=== PATIENT | male | born 1955 | race Caucasian/White ===

== ENCOUNTER 2018-02-27 10:12 | Day surgery (SDC) | payer MEDICARE, SELFPAY ==
--- NOTE | 2018-02-26 22:23 | PCM.HP.BLA ---
History and Physical Date of Admission: 02/27/18 HISTORY OF PRESENT ILLNESS 62 year old man presents for evaluation for TBSE. He is concerned about a lesion on his superior helical rim with extension to middle helical rim left ear that has increased in size over the last several months. It has developed irregular borders. He denies any fever. There has been some bleeding. He denies any trauma. He presents at this time for further evaluation and treatment. PAST MEDICAL HISTORY Arthritis. Asthma. Colon cancer. Chronic bronchitis. COPD. CAD with ID. CHF. Hypertension. High cholesterol. Hyperlipidemia. Pneumonia. Diverticulitis. Hernia. Ruptured appendix. PAST SURGICAL HISTORY Laparoscopic colon resection. Colonoscopy with polypectomy. Cardiac stents. MEDICATIONS Aspirin. Combivent. Nitroglycerin. Fluticasone. Lisinopril. Lovastatin. Metoprolol. Plavix. ALLERGIES None. SOCIAL HISTORY Patient is a former smoker. Patient does not drink alcohol. FAMILY HISTORY Negative for skin cancer. Mother - CAD with [place] and CHF. Father - CAD with ID. Brother - CAD with ID. REVIEW OF SYSTEMS General - Denies fever and weight loss. Has fatigue. ENT - Denies nasal congestion and sore throat. Eyes - Denies eye pain. Denies cataracts and glaucoma. Endocrine - Denies excessive thirst and urination. Skin - Has enlarging lesion superior helical rim with extension to middle helical rim left ear. Musculoskeletal - Has joint pain, joint stiffness, weakness of muscles and joints, and arthritis. Denies back pain. Neuro - Denies headaches. Cardiovascular - Denies chest pain. Has fatigue. Denies shortness of breath of exercise. Psych - Denies anxiety and depression. Respiratory - Has shortness of breath, asthma, and cough. Patient is a former smoker. Gastrointestinal - Denies nausea, vomiting, diarrhea, and constipation. Hematologic - Denies abnormal bruising and bleeding. Genitourinary - Denies hematuria and urinary frequency. PHYSICAL EXAMINATION General - Awake and alert. HEENT - PERRL. EOMI. Throat is clear. On the left ear over the superior helical rim with extension to middle helical rim is a nodular lesion with some ulceration. Has irregular borders. It is raised in configuration. It is nontender. It measures 1.2 cm. Neck - Supple and nontender. No cervical adenopathy. No suspicious lesions noted. Chest wall - No suspicious lesions noted. Lungs - Clear to auscultation. Heart - Regular rate and rhythm. Abdomen - Soft and nondistended. No suspicious lesions noted. Extremities - FROM. No suspicious lesions noted. Radial pulses are palpable. No axillary adenopathy. Neuro - CN II - XII grossly intact. ASSESSMENT 1. 1.2 cm ulcerated lesion superior helical rim with extension to middle helical rim left ear. 2. Former smoker. PLAN Recommend excision of this lesion left ear. Will send to Pathology for analysis to rule out carcinoma. If carcinoma is present, then further excision will be done with a skin flap or skin graft reconstruction. Depending on the size of the defect, a two stage post-auricular skin flap with cartilage grafting for support would be necessary. The second stage which is division and inset of the post-auricular skin flap. The donor site on the post-auricular area may need to be skin grafted or have a skin flap placed. The second stage surgery would occur in 3 weeks. Surgery would be done under general anesthesia and a surgical observation overnight stay in the hospital. Patient was informed of the risks and complications of the procedure including alternatives to surgery. These were discussed with him personally. He voices understanding and wishes to proceed. Some of the risks and complications were included in a form from the [employer].
--- NOTE | 2018-02-27 | LES_PTH ---
PATIENT: GABRIEL BENJAMIN LOC: [facility] U#:[id number] AGE/SX: 62/M ROOM: RE02/27/[address]: Dr. Rolo Cantu MD : 1955 BED: DIS: 02/27/2018 SPEC #: [id number] RECD: 02/27/18 13:16 STATUS: JAKE REINALDO #: [id number] BRIANDA: 02/27/18 00:[address]: Rolo Cantu DEPT: SURGICAL PATHOLOGY RECD BY: Itzel Cabrera ENTERED: 02/27/18 14:10 SP TYPE: Lesion OTHR DR: Dr. Celio Shaikh MD Tissues: A - Skin of external ear, NOS B - Skin of external ear, NOS Procedures: Frozen Section (charge) Surgery Specimen Level IV Frozen (no charge) HEADER OPERATION: Excision lesion left ear, superior helical rim/middle helical PRE-OP DIAGNOSIS: Ulcerated lesion superior helical rim with extension to middle helical rim left ear TISSUE SUBMITTED: A ? Ulcerated lesion superior helical rim with extension to middle helical rim left ear sent for FS, left OR at 1312, B ? Squamous cell carcinoma superior helical rim with extension to middle helical rim left ear, suture at 12 o?clock FROZEN SECTION DIAGNOSIS A. Skin lesion of left ear, biopsy: Squamous cell carcinoma with area suspicious for microinvasive carcinoma. Arising in association with verrucoid keratosis. AM:gia 02/27/18 Case has been reviewed in consultation with Dr. Mariscal who concurs with the above diagnosis. IDC:ISI MICROSCOPIC DIAGNOSIS A. Skin lesion of left ear, biopsy: Invasive well differentiated squamous cell carcinoma. See comment. B. Squamous cell carcinoma superior helical rim, excisional biopsy: Focal ulceration consistent with site of specimen A. Actinic keratosis and solar elastosis. Negative for carcinoma. See comment. ISI:gia 03/02/18 COMMENT A. The tumor shows focal area of ulceration and extensive verrucous feature. B. The specimen also shows cartilage in the deep portion of the specimen. MICROSCOPIC DESCRIPTION Slides are reviewed. GROSS DESCRIPTION A - Received fresh for frozen section consultation labeled with the patient's name is a specimen designated skin lesion of left ear. The specimen consists of a cone-shaped fragment of indurated skin and soft tissue measuring 2 x 1.6 x 1.4 cm. The cone portion is inked. The specimen is trisected and a order entry representative mid portion section is submitted for frozen section consultation. The remainder of the specimen is submitted for permanent section in cassette #2. / AM: 02/27/18 B - Received in fixative is one container labeled with the patient's name and designated squamous cell carcinoma superior helical rim. The specimen consists of two fragments. One fragment consists of a light beasley-red soft tissue measuring 2 x 0.5 x 0.2 cm. This fragment is submitted in its entirety in cassette #1. The second fragment consists of a fragment of excised skin measuring 3 x 2 x 0.5 cm and contains portion of cartilage and a centrally located ulcer measuring 1.9 x 1 x 0.1 cm. The specimen is differentially inked as follows: 12 o?clock ? black, 6 o?clock ? blue, skin at 3 o?clock ? green and 9 o?clock ? red. The fragments are serially sectioned in a 3 through 9 o?clock orientation and totally submitted in cassettes 2 & 3. / AM: 02/27/18 TC:0 CPT: 58650 x2, 71426
[2018-02-27 10:52] VITALS: BP 143/91; PULSE 98; RESP 16; TEMP 36.4; O2SAT 93; BMI 37.9
[2018-02-27] MEDS: Clindamycin 900 MG/50 ML BAG 75 MG IV (12:45)
--- NOTE | 2018-02-27 13:53 | OP.PN_ITS ---
Immediate Post-Op Note Date of Procedure: 02/27/18 Primary Surgeon/Physician: Rolo Cantu certified nuclear medicine technologist: None Pre-Operative Diagnosis: 1. 1.2 cm ulcerated lesion superior helical rim with extension to middle helical rim left ear. 2. Former smoker. Post-Operative Diagnosis: 1. 1.2 cm ulcerated squamous cell carcinoma superior helical rim with extension to middle helical rim left ear. 2. Former smoker. Surgery/Procedure Performed:: Radical excision 1.2 cm ulcerated squamous cell carcinoma including underlying cartilage superior helical rim with extension to middle helical rim left ear. Description of Surgical Findings:: 62 year old man presents for evaluation for TBSE. He is concerned about a lesion on his superior helical rim with extension to middle helical rim left ear that has increased in size over the last several months. It has developed irregular borders. He denies any fever. There has been some bleeding. He denies any trauma. He had the ulcerated lesion left ear excised and sent to Pathology as a frozen section. Frozen section showed a squamous cell carcinoma. Today the patient underwent radical excision 1.2 cm ulcerated squamous cell carcinoma including underlying cartilage superior helical rim with extension to middle helical rim left ear. Frozen section superior helical rim with extension to middle helical rim left ear - squamous cell carcinoma with verrucous features. Size of defect superior helical rim with extension to middle helical rim left ear - 2.5 x 1.5 x 0.6 cm. Estimated Blood Loss: 30 ml. Specimen's removed: 1. Ulcerated lesion superior helical rim with extension to middle helical rim left ear to Pathology as a frozen section. 2. Squamous cell carcinoma superior helical rim with extension to middle helical rim left ear to Pathology. Drains: None. Type of Anesthesia:: Local MAC - xylocaine with epinephrine auricular block and IV sedation. - Admit VTE Documentation VTE Present on Admission: No VTE Mechan Device Prophylaxis: SCD's VTE Pharm Prophylaxis ordered?: No
[2018-02-27 13:55] VITALS: BP 111/77; BP 143/91; PULSE 99; RESP 16; TEMP 36.2; O2SAT 92
--- NOTE | 2018-02-27 13:59 | PCM.DC ---
You will use the following diet at home:: No restrictions Discharge Activity: May not drive while taking narcotic pain medications., - - keep head elevated. no heavy lifting. May shower in (days): 1 - shower from the neck down only. May resume sexual activity in: No Restrictions Ice area for (Minutes): 5 - as needed for swelling. Weight Bearing Status: Weight bearing as tolerated Lifting Restrictions: 10 lbs. Keep extremity elevated above heart level: - - elevate head. Call your doctor if your incision/area has: Continuous Slow Oozing, Sudden Increased Bleeding, Increased Pain/ Swelling, Increased Redness, Foul Smelling Discharge, Swelling at the incision site Call your doctor if you observe: Fever of 101 or Higher, Coldness, Increased Pain, Shortness of breath, Chest pain, Calf discomfort, Uncontrolled pain Suture Line Care: - - daily silver dressing changes after the operative dressing is removed in the office. Change Dressing in (Days):: 3 - will change dressing in the office. Cleanse incision/area with: - - may get wound wet in the shower after the dressing is removed in the office. Allergies/Adverse Reactions: Allergies No Known Allergies Allergy (Verified 02/24/18 15:18) Medications to take at Discharge Clopidogrel Bisulfate [Clopidogrel] 75 mg PO DAILY 06/25/16 Fluticasone/Vilanterol [Breo Ellipta 100-25 Mcg INH] 1 ea IH DAILY 06/25/16 Ipratropium/Albuterol Respimat [Combivent Respimat Inhal [place]] 1 puff INHALATION 4X/DAY 06/25/16 Lisinopril 5 mg PO QHS 06/25/16 Nitroglycerin [Nitrostat] 0.4 mg SUBLINGUAL Q5M PRN 06/25/16 Lovastatin [Mevacor] 40 mg PO QHS 03/20/17 Metoprolol(XL)Succ [Toprol Xl (Beta Hoang)] 50 mg PO QHS 03/20/17 Oxygen, Home [Home Oxygen] 2 - 4 lpm NASAL CONT #1 unit 03/22/17 L. Acidophilus/Pectin, [place] [Acidophilus-Pectin [place]] 1 ea PO BID #20 tab 02/27/18 Levofloxacin [Levaquin] 500 mg PO .QDAILY #10 tab 02/27/18 Oxycodone HCl/Acetaminophen [Percocet 5/325] 1 - 2 tab PO 4X/DAY PRN PRN 4 Days #30 tab 02/27/18 The following prescriptions were given: Levofloxacin [Levaquin] 500 mg PO .QDAILY #10 tab Oxycodone HCl/Acetaminophen [Percocet 5/325] 1 - 2 tab PO 4X/DAY PRN PRN 4 Days #30 tab PRN Reason: Pain L. Acidophilus/Pectin, [place] [Acidophilus-Pectin [place]] 1 ea PO BID #20 tab Primary Care Physician: Celio Shaikh MD [Primary Care Provider] - Please Follow Up With: Rolo Cantu MD When: friday03/02/18. call [phone] for appt. Proposed Discharge Date: 02/27/18
[2018-02-27 14:00] VITALS: BP 121/81; BP 143/91; PULSE 99; RESP 16; O2SAT 91
[2018-02-27 14:05] VITALS: BP 116/79; BP 143/91; PULSE 94; RESP 16; O2SAT 92
[2018-02-27 14:10] VITALS: BP 116/77; BP 143/91; PULSE 95; RESP 18; TEMP 36.1; O2SAT 93
[2018-02-27 14:48] VITALS: BP 143/91
--- NOTE | 2018-02-27 18:33 | PCM.OPRPT ---
Report of Operation Date of Procedure: 02/27/18 Pre-Operative Diagnosis: 1. 1.2 cm ulcerated lesion superior helical rim with extension to middle helical rim left ear. 2. Former smoker. Post-Operative Diagnosis: 1. 1.2 cm ulcerated squamous cell carcinoma superior helical rim with extension to middle helical rim left ear. 2. Former smoker. Surgery/Procedure Performed:: Radical excision 1.2 cm ulcerated squamous cell carcinoma including underlying cartilage superior helical rim with extension to middle helical rim left ear. Description of Surgical Findings:: 62 year old man presents for evaluation for TBSE. He is concerned about a lesion on his superior helical rim with extension to middle helical rim left ear that has increased in size over the last several months. It has developed irregular borders. He denies any fever. There has been some bleeding. He denies any trauma. Patient was informed of the risks and complications of the procedure including alternatives to surgery. These were discussed with him personally. He voices understanding and wishes to proceed. Some of the risks and complications were included in a form from the [place] [employer]. Frozen section superior helical rim with extension to middle helical rim left ear - squamous cell carcinoma with verrucous features. Size of defect superior helical rim with extension to middle helical rim left ear - 2.5 x 1.5 x 0.6 cm. associate data scientist: None Type of Anesthesia:: Local MAC - xylocaine with epinephrine auricular block and IV sedation. Specimen's removed: 1. Ulcerated lesion superior helical rim extending to middle helical rim left ear to Pathology as a frozen section. 2. Squamous cell carcinoma superior helical rim extending to middle helical rim left ear to Pathology. Drains: None. Estimated Blood Loss (mL): 30 ml. Description of Procedure: Patient was taken to OR in supine position and was given IV sedation. His left ear, cheek, scalp, and neck were prepped and draped in the usual fashion. SCD's were placed for DVT prophylaxis. Perioperative antibiotics were given intravenously. Using xylocaine with epinephrine, a regional auricular block was administered. After waiting 5 minutes for the anesthetic to take effect, an intradermal excision of this ulcerated lesion was done and sent to Pathology for analysis to rule out carcinoma. Frozen section showed a squamous cell carcinoma with verrucous features. Therefore further excision will be done. I marked out a margin of 6 mm. A full thickness radical excision was done including underlying cartilage. A suture was marked at the 12 oclock position for pathology orientation. The lesion was sent to Pathology for analysis to rule out carcinoma at the margins. Hemostasis was obtained with electrocautery. The size of the defect was 2.5 x 1.5 x 0.6 cm. Before proceeding with a complex reconstruction that may necessitate a two stage flap, I want to make sure there are negative margins. So the wound will be left open and dressed daily with a Silver dressing. I applied a Silver dressing today and secured it to the skin with 4-0 Nylon tie over stent suture dressing. Patient tolerated the procedure well and was sent to PACU in satisfactory condition. He will be sent home on antibiotics and pain medication. He will keep his head elevated during the initial postop period. He will followup in the office on Friday for a dressing change and to instruct the patient on the Silver dressing changes. When the pathology is available, will proceed with complex wound reconstruction that may necessitate a two stage flap and possible associated skin grafting. Grafts/Implants Used: None. - Complications None. - Admit VTE Documentation VTE Present on Admission: No VTE Mechan Device Prophylaxis: SCD's VTE Pharm Prophylaxis ordered?: No Code Visit Surgery Charges CPT - 42175 ICD-10 - C44.229, S01.302A, Z87.891
--- NOTE | 2018-02-28 19:54 | OP.PCM_ITS ---
Report of Operation Date of Procedure: 02/27/18 Pre-Operative Diagnosis: 1. 1.2 cm ulcerated lesion superior helical rim with extension to middle helical rim left ear. 2. Former smoker. Post-Operative Diagnosis: 1. 1.2 cm ulcerated squamous cell carcinoma superior helical rim with extension to middle helical rim left ear. 2. Former smoker. Surgery/Procedure Performed:: Radical excision 1.2 cm ulcerated squamous cell carcinoma including underlying cartilage superior helical rim with extension to middle helical rim left ear. Description of Surgical Findings:: 62 year old man presents for evaluation for TBSE. He is concerned about a lesion on his superior helical rim with extension to middle helical rim left ear that has increased in size over the last several months. It has developed irregular borders. He denies any fever. There has been some bleeding. He denies any trauma. Patient was informed of the risks and complications of the procedure including alternatives to surgery. These were discussed with him personally. He voices understanding and wishes to proceed. Some of the risks and complications were included in a form from the [employer]. Frozen section superior helical rim with extension to middle helical rim left ear - squamous cell carcinoma with verrucous features. Size of defect superior helical rim with extension to middle helical rim left ear - 2.5 x 1.5 x 0.6 cm. 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 Specimen's removed: 1. Ulcerated lesion superior helical rim extending to middle helical rim left ear to Pathology as a frozen section. 2. Squamous cell carcinoma superior helical rim extending to middle helical rim left ear to Pathology. Drains: None. Estimated Blood Loss (mL): 30 ml. Description of Procedure: Patient was taken to OR in supine position and was given IV sedation. His left ear, cheek, scalp, and neck were prepped and draped in the usual fashion. SCD' s were placed for DVT prophylaxis. Perioperative antibiotics were given intravenously. Using xylocaine with epinephrine, a regional auricular block was administered. After waiting 5 minutes for the anesthetic to take effect, an intradermal excision of this ulcerated lesion was done and sent to Pathology for analysis to rule out carcinoma. Frozen section showed a squamous cell carcinoma with verrucous features. Therefore further excision will be done. I marked out a margin of 6 mm. A full thickness radical excision was done including underlying cartilage. A suture was marked at the 12 oclock position for pathology orientation. The lesion was sent to Pathology for analysis to rule out carcinoma at the margins. Hemostasis was obtained with electrocautery. The size of the defect was 2.5 x 1.5 x 0.6 cm. Before proceeding with a complex reconstruction that may necessitate a two stage flap, I want to make sure there are negative margins. So the wound will be left open and dressed daily with a Silver dressing. I applied a Silver dressing today and secured it to the skin with 4-0 Nylon tie over stent suture dressing. Patient tolerated the procedure well and was sent to PACU in satisfactory condition. He will be sent home on antibiotics and pain medication. He will keep his head elevated during the initial postop period. He will followup in the office on Friday for a dressing change and to instruct the patient on the Silver dressing changes. When the pathology is available, will proceed with complex wound reconstruction that may necessitate a two stage flap and possible associated skin grafting. Grafts/Implants Used: None. - Complications None. - Admit VTE Documentation VTE Present on Admission: No VTE Mechan Device Prophylaxis: SCD's VTE Pharm Prophylaxis ordered?: No Code Visit Surgery Charges CPT - 82129 ICD-10 - C44.229, S01.302A, Z87.891
== END 2018-02-27 14:58 | disposition home or self-care (01) ==
LOC: SDC 10:12 → AC 10:16
PROVIDERS: Family Provider Family Medicine; PCP Family Medicine; Visit Provider Surgery
PROC: (CPT 11642; principal; 2018-02-27 12:00)
DX: C44.229 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 and external auricular canal (principal); M19.90 Unspecified osteoarthritis, unspecified site; J45.909 Unspecified asthma, uncomplicated; Z85.038 Personal history of other malignant neoplasm of large intestine; J44.9 Chronic obstructive pulmonary disease, unspecified; I25.10 Atherosclerotic heart disease of native coronary artery without angina pectoris; I25.2 Old myocardial infarction; I11.0 Hypertensive heart disease with heart failure; I50.9 Heart failure, unspecified; E78.5 Hyperlipidemia, unspecified; K21.9 Gastro-esophageal reflux disease without esophagitis; Z87.891 Personal history of nicotine dependence; Z95.5 Presence of coronary angioplasty implant and graft; Z99.81 Dependence on supplemental oxygen; Z79.82 Long term (current) use of aspirin; Z79.02 Long term (current) use of antithrombotics/antiplatelets; Z79.51 Long term (current) use of inhaled steroids; Z79.899 Other long term (current) drug therapy
CPT/HCPCS: 11642; 88305; 88331; J7120

== ENCOUNTER → 2018-04-28 06:47 | Outpatient (CLI) | payer MEDICARE, SELFPAY ==
--- NOTE | 2018-04-01 17:26 | PCM.HP.BLA ---
History and Physical Date of Admission: 04/02/18 HISTORY OF PRESENT ILLNESS 62 year old man presents for evaluation for TBSE. He is concerned about a lesion on his superior helical rim with extension to middle helical rim left ear that has increased in size over the last several months. It has developed irregular borders. He denies any fever. There has been some bleeding. He denies any trauma. He went to surgery on 02/27/18 where he underwent radical excision 1.2 cm ulcerated squamous cell carcinoma including underlying cartilage superior helical rim with extension to middle helical rim left ear. Pathology showed an invasive well differentiated squamous cell carcinoma with negative margins. He presents today for complex left ear reconstruction with skin flaps and possible skin graft. PAST MEDICAL HISTORY Arthritis. Asthma. Colon cancer. Chronic bronchitis. COPD. CAD with UT. CHF. Hypertension. High cholesterol. Hyperlipidemia. Pneumonia. Diverticulitis. Hernia. Ruptured appendix. Invasive well differentiated squamous cell carcinoma superior helical rim with extension to middle helical rim left ear PAST SURGICAL HISTORY Laparoscopic colon resection. Colonoscopy with polypectomy. Cardiac stents. Radical excision 1.2 cm ulcerated squamous cell carcinoma including underlying cartilage superior helical rim with extension to middle helical rim left ear - 02/27/18 MEDICATIONS Aspirin. Combivent. Nitroglycerin. Fluticasone. Lisinopril. Lovastatin. Metoprolol. Plavix. ALLERGIES None. SOCIAL HISTORY Patient is a former smoker. Patient does not drink alcohol. FAMILY HISTORY Negative for skin cancer. Mother - CAD with UT and CHF. Father - CAD with UT. Brother - CAD with UT. REVIEW OF SYSTEMS General - Denies fever and weight loss. Has fatigue. ENT - Denies nasal congestion and sore throat. Eyes - Denies eye pain. Denies cataracts and glaucoma. Endocrine - Denies excessive thirst and urination. Skin - Has enlarging lesion superior helical rim with extension to middle helical rim left ear that was biopsied on 02/27/18 and shown to be an invasive well differentiated squamous cell carcinoma. Musculoskeletal - Has joint pain, joint stiffness, weakness of muscles and joints, and arthritis. Denies back pain. Neuro - Denies headaches. Cardiovascular - Denies chest pain. Has fatigue. Denies shortness of breath of exercise. Psych - Denies anxiety and depression. Respiratory - Has shortness of breath, asthma, and cough. Patient is a former smoker. Gastrointestinal - Denies nausea, vomiting, diarrhea, and constipation. Hematologic - Denies abnormal bruising and bleeding. Genitourinary - Denies hematuria and urinary frequency. PHYSICAL EXAMINATION General - Awake and alert. HEENT - PERRL. EOMI. Throat is clear. On the left ear over the superior helical rim with extension to middle helical rim is an open wound after excision of invasive well differentiated squamous cell carcinoma. It is nontender. It measures 2.5 cm. Neck - Supple and nontender. No cervical adenopathy. No suspicious lesions noted. Chest wall - No suspicious lesions noted. Lungs - Clear to auscultation. Heart - Regular rate and rhythm. Abdomen - Soft and nondistended. No suspicious lesions noted. Extremities - FROM. No suspicious lesions noted. Radial pulses are palpable. No axillary adenopathy. Neuro - CN II - XII grossly intact. ASSESSMENT 1. 2.5 cm invasive well differentiated squamous cell carcinoma wound superior helical rim with extension to middle helical rim left ear. 2. Former smoker. PLAN Recommend complex reconstruction left ear squamous cell carcinoma wound defect with a postauricular advancement flap and possible skin grafting. Also cartilage grafting would be needed for flap support. This is a two stage procedure in which the second stage is division and inset of the post-auricular skin flap. The donor site on the post-auricular area may need to be skin grafted or have a skin flap placed. The second stage surgery would occur in 3 weeks. Surgery would be done under general anesthesia and a surgical observation overnight stay in the hospital. Patient was informed of the risks and complications of the procedure including alternatives to surgery. These were discussed with him personally. He voices understanding and wishes to proceed. Some of the risks and complications were included in a form from the [place] [employer].
[2018-04-02 06:46] VITALS: BP 152/89; PULSE 107; RESP 16; TEMP 36.3; O2SAT 93; BMI 37.6
[2018-04-02] MEDS: Ipratropium/Albuterol Sulfate 3 ML AMPUL.NEB INHALATION (07:48)
[2018-04-02 07:49] VITALS: PULSE 95; RESP 18; O2SAT 87
== END ==
LOC: AC 04-02 06:32 → SDC 06:48
PROVIDERS: Family Provider Family Medicine; PCP Family Medicine; Visit Provider Surgery
DX: J98.8 Other specified respiratory disorders (principal)
CPT/HCPCS: 94640; J7120

== ENCOUNTER → 2018-06-10 12:07 | Outpatient (CLI) | payer MEDICARE, SELFPAY ==
[2018-06-10 12:15] VITALS: PULSE 100; PULSE 109; PULSE 115; PULSE 122; PULSE 127; PULSE 128; PULSE 129; PULSE 133; O2SAT 87; O2SAT 88; O2SAT 89; O2SAT 90; O2SAT 91
--- NOTE | 2018-06-10 13:16 | CPS ---
Pt was 88% on RA pre test, pt was informed 2L oxygen would be applied, pt adamantly said he doesn't need the oxygen and doesn't wear his 3L oxygen prescribed at home because it doesn't help. Pt allowed RT to apply oxygen for test, post test pt needed 4L O2 to keep SpO2 >88%. Also, pt mouth breathed during test and instructed to not talk during test to not be SOB.
--- NOTE | 2018-06-10 15:00 | PCM.PSN.6M ---
PSN 6 Minute Walk Test - 6 Minute Walk Test 6 Minute Walk Test: 6 Minute Walk Test PSN:6-Minute Walk Test Start: 06/10/18 13:13 Freq: Status: Active Protocol: [id number].6MINW Document 06/10/18 12:15 HG (Rec: 06/10/18 13:19 HG [id number]) 6 Minute Walk Test Date Performed 06/10/18 Time Performed 12:15 Height 5 ft 8 in Weight: 113.398 kg Weight in Pounds 250.[address]: Juan Webb Assistive device used: None Pre-test Oxygen Delivery Method Room Air Pulse Ox (%) 88 Pulse Rate (60-100 beats/min) 100 Dyspnea Domitila Scale (0-10) 2 Exertion Domitila Scale (6-20) 11 1st minute Oxygen Flow Rate (L/min) (L/min) 2 Oxygen Delivery Method Nasal Cannula Pulse Ox (%) 87 Pulse Rate (60-100 beats/min) 128 H 2nd minute Oxygen Flow Rate (L/min) (L/min) 3 Oxygen Delivery Method Nasal Cannula Pulse Ox (%) 89 Pulse Rate (60-100 beats/min) 122 H 3rd minute Oxygen Flow Rate (L/min) (L/min) 3 Oxygen Delivery Method Nasal Cannula Pulse Ox (%) 91 Pulse Rate (60-100 beats/min) 109 H 4th minute Oxygen Flow Rate (L/min) (L/min) 3 Oxygen Delivery Method Nasal Cannula Pulse Ox (%) 89 Pulse Rate (60-100 beats/min) 127 H 5th minute Oxygen Flow Rate (L/min) (L/min) 3 Oxygen Delivery Method Nasal Cannula Pulse Ox (%) 90 Pulse Rate (60-100 beats/min) 129 H 6th minute Oxygen Flow Rate (L/min) (L/min) 3 Oxygen Delivery Method Nasal Cannula Pulse Ox (%) 87 Pulse Rate (60-100 beats/min) 133 H Post-test Oxygen Flow Rate (L/min) (L/min) 4 Oxygen Delivery Method Nasal Cannula Pulse Ox (%) 91 Pulse Rate (60-100 beats/min) 115 H Dyspnea Domitila Scale (0-10) 3 Exertion Domitila Scale (6-20) 13 Full Laps Walked 11 Partial Lap, Number of Tiles Walked 0 Total Distance Walked (ft) 649 06/10/18 13:16 Cardiopulmonary Services by Shy Dixon Pt was 88% on RA pre test, pt was informed 2L oxygen would be applied, pt adamantly said he doesn't need the oxygen and doesn't wear his 3L oxygen prescribed at home because it doesn't help. Pt allowed RT to apply oxygen for test, post test pt needed 4L O2 to keep SpO2 >88%. Also, pt mouth breathed during test and instructed to not talk during test to not be SOB. Initialized on 06/10/18 13:16 - END OF NOTE - Interpretation Interpretation: The patient was noted to be 88% on room air, so 2 L/min was applied. The patient was able to ambulate a total of 649 feet over the course of 6 minutes with no assistive devices or breaks. The patient required a total of 4 L/min to maintain appropriate saturations throughout ambulation. Patient was noted to have significant tachycardia with a peak heart rate of 133 beats per minute. These findings are consistent with a cardiopulmonary limitation exercise tolerance. - Recommendations Recommendations: The patient requires 2 L/min at rest, but should be using at least 4 L/min with any exertion.
== END ==
LOC: PSN 12:08
PROVIDERS: Family Provider Family Medicine; PCP Family Medicine; Visit Provider Internal Medicine Critical Care Medicine
DX: J44.9 Chronic obstructive pulmonary disease, unspecified (principal)
CPT/HCPCS: 94618

== ENCOUNTER → 2018-06-12 12:46 | Outpatient (CLI) | payer MEDICARE, SELFPAY ==
--- NOTE | 2018-06-12 15:12 | PFTCOMP ---
COMPLETE PULMONARY FUNCTION TEST INTERPRETATION Brief HPI: Patient is a 62 year old male, currently under the care of myself, who presents to [facility] for complete pulmonary function tests secondary to diagnosis of dyspnea. Respiratory therapist reports good effort and reproducible results. Interpretation: Forced expiration spirometry shows a moderately-severe large airways obstructive ventilatory defect with an FEV1 of 61% predicted. There is no significant bronchodilator response by ATS criteria. Spirograms are of good quality and plateau slowly, indicating slowly emptying areas of the lungs. The respiratory flow volume loop shows decreased expiratory flow rates at all lung volumes consistent with airway obstruction. Lung volumes by body plethysmography show a normal total lung capacity at 6.87 L, 112% predicted. FRC and RV are elevated out of proportion. Lung volume measurements are consistent with air-trapping, but this does not reach clinical significance by strict ATS criteria. Diffusion capacity by carbon monoxide is decreased at 65% predicted. The airway resistance is elevated. Compared to previous pulmonary function tests from 04/25/2009, there has been a significant improvement in DLCO. Impression: Irreversible moderately severe large airways obstructive ventilatory defect with a symmetric reduction diffusing capacity in a pattern consistent with COPD. There has been some improvement in DLCO compared to previous testing.
== END ==
LOC: PSN 12:46
PROVIDERS: Family Provider Family Medicine; PCP Family Medicine; Visit Provider Internal Medicine Critical Care Medicine
DX: J44.9 Chronic obstructive pulmonary disease, unspecified (principal)
CPT/HCPCS: 94060; 94726; 94729

== ENCOUNTER 2018-07-15 07:42 | Day surgery (SDC) | payer MEDICARE, SELFPAY ==
[2018-07-14 10:11] VITALS: BMI 37.2
[2018-07-15] VITALS (22 sets, daily range): BP systolic 116–135; BP diastolic 66–91; PULSE 73–97; RESP 16–25; TEMP 36.7; O2SAT 90–95; BMI 39.6; BMI 37.2
--- NOTE | 2018-07-15 11:15 | EKG12_ITS ---
Test Reason : PCI Blood Pressure : / mmHG Vent. Rate : 076 BPM Atrial Rate : 076 BPM P-R Int : 150 ms QRS Dur : 138 ms QT Int : 388 ms P-R-T Axes : 041 091 056 degrees QTc Int : 436 ms Normal sinus rhythm Non-specific intra-ventricular conduction block Abnormal ECG Confirmed by Aisha Cortez ([id number]), metropolitan editor LEROY MA ([id number]) on 07/20/2018 3:36:47 PM Referred By: Dakota Rivera Confirmed By:Aisha Cortez
--- NOTE | 2018-07-15 11:19 | CL.I_ITS ---
Patient Name: GABRIEL BENJAMIN Study Date: 07/15/2018 Performing: Dakota Rivera MD Ht: 68.11 inches 173 cm : 1955 Wt: 244.71 lbs 111 kg Age: 62 Gender: male BSA: 2.23 PROCEDURE(S) PERFORMED [id number]/LHC/COR/LV [id number] W OR WO PTCA, SINGLE CORONARY ARTERY CLINICAL PROFILE AND CO-MORBIDITIES Indications: Stable Known CAD, Dyspnea on exertion. Heart Failure: None Stress/Imaging Stress/Image Study Performed: No Angina Classification Anginal Classification w/in 2 Weeks: No symptoms CAD Presentations: Other: Dyspnea on exertion. 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 Widely patent RCA and RPL stents. Successful PTCA/GRADY mid LCX with a 2.5 x 12 Promus Synergy, post dilated proximally with a 3.0 x 8 NC balloon; 75%-->0%, no dissection. RECOMMENDATIONS Referred for immediate PCI Highly recommend quitting all tobacco products Follow up with primary emergency veterinarian Risk factor modification ASA Indefinitley Plavix for at least 12 months Routine post interventional care Refer for Outpatient Cardiac Rehab Manual sheath removal per protocol CV surgery consult for possible correction of RCA aneurysm; asa/plavix for life to prevent thrombosis of aneurysm. Successful Mynx closure of RFA. F/u with Dr Goddard. Refer to pulmonary for sleep study and possible CT of chest for HAYDEN. DESCRIPTION OF PROCEDURE The patient arrived to the procedure lab. The risks and benefits of the procedure as well as a full d escription of our services here and lack of surgical backup were fully explained to the patient and/o r their significant other prior to the catheterization. The Timeout was completed, verifying the lulu ect patient and procedure. The patient's procedural site was prepped and draped in the usual fashion. Local anesthetic was given subcutaneously to right groin region with Lidocaine 2%. Using a modified Seldinger technique, arterial access was obtained via the right femoral artery, a 4Fr sheath was inse rted. Venous access was obtained via the right femoral vein, an 8Fr sheath was inserted. Thermal dilu tion cardiac outputs were then recorded. O2 saturations were then obtained. Left Ventriculography was performed in JAY projection using a 4 Fr. Pigtail catheter. LV to AO pullback pressures were then re corded. Simultaneous pressures were then recorded. The Thermal dilution catheter was then removed. Le ft Coronary Artery selective angiography was performed in multiple views using a 4 Fr. JL5 catheter. Right Coronary Artery selective angiography was then performed in multiple views using a 4 Fr. 3DRC c atheterThe images were reviewed and options discussed. A decision was then made to proceed with an In tervention, IVUS or other adjunct procedure. Arterial sheath was exchanged for a 6 Fr Sheath. 3.75 EBU Guide catheter was inserted and engaged int o the LCA. BMW Guide wire was advanced to the Circumflex. Angiogram performed pre balloon dilatation. 2x8 Emerge Balloon catheter was inserted. Balloon catheter was advanced across lesion in the circumf mani, mid. PTCA balloon inflated at 8 atms for 16 secs. PTCA balloon inflated at 8 atms for 12 secs. A ngiogram performed post balloon dilatation. 2.5x12 Synergy Drug Eluting stent was inserted. Drug Elut ing stent was advanced across the lesion in the circumflex, mid. 3x8 NC Emerge Balloon catheter was i nserted. Balloon catheter was inserted post stent. Angiogram performed post stent deployment. Contras t was injected through the sheath and the Right Iliac and Femoral artery were assessed for possible c losure device. The arterial sheath was pulled and a Mynx closure device was deployed for hemostasis. The venous sheath was then pulled and manual compression applied until hemostasis achieved CORONARY ANGIOGRAPHY DOMINANCE: Right Dominant LEFT HEART ASSESSMENT Left Ventricular Ejection Fraction: by LV Gram 65 % Normal Left Ventricular systolic function Normal Left Ventricular End Diastolic Pressure Normal LV wall motion RIGHT HEART ASSESSMENT Thermal CO: 7.58 Thermal CI: 3.4 Ruddy CO: 6.63 Ruddy CI: 2.97 PW: 12/12 8 PA: 36/3 20 RV: 30/2 5 RA: 7/7 3 PVR: 127 Aortic Valve Area: >3.50 Aortic Valve Index: 1.57 Aortic Valve Mean Gradient: 14.7 Right Heart pressures - normal LEFT MAIN: Angiographically normal LEFT ANTERIOR DECENDING ARTERY: PROX LAD: Mild calcification, Mild luminal irregularities less than 30%, mild to moderate proximal an eursymal dilatation. CIRCUMFLEX ARTERY: MID CIRC: Instent restenosis 50 %, 75 just upstream from previously placed stent. % Stenosis RIGHT CORONARY ARTERY: PROX RCA: Mild luminal irregularities less than 30%, Possibly significant aneurysm of proximal RCA, p reviously seen on cath in 2011, but slightly worse on today's study. MID RCA: Instent restenosis 10 % RT PLV: Instent restenosis 0 % INTERVENTION INFORMATION LESION SITE: Circumflex (Mid) Lesion Complexity: Non-High/Non-C, lesion at bifurcation: No, thrombus present: No, lesion length: 12 mm, culprit lesion: Yes Pre Stenosis: 75 % Pre intervention ELIZABETH flow: 3 PROCEDURE: Drug Eluting Stent with pre and post dilatation Post Stenosis: 0 % Post intervention ELIZABETH flow: 3 Lesion Devices: Ian Sci EMERGE MR 2.00x08 BALLOON Ian Sci Synergy MR GRADY 2.50x12 Ian Sci NC EMERGE MR 3.00x08 BALLOON COMPLICATIONS No Complications PROCEDURE MEDICATIONS Versed 1 mg IV Oxygen: 0 L/min via nasal cannula Oxygen: 2 L/min via nasal cannula Heparin 6000 unit(s) IV 07/15/2018 10:34:06 Nitro 200 mcg IC 07/15/2018 10:35:00 Nitro 200 mcg IC 07/15/2018 10:35:00 Nitro 200 mcg IC 07/15/2018 10:40:47 SUMMARY OF HEMODYNAMIC DATA Time AIR REST ECG 08:01:20 ECG 08:01:30 RA 7/7 (3) SV 10:10:33 RV 30/2, 5 10:11:16 PW 12/12 (8) PV 10:11:56 PA 36/3 (20) PA 10:12:06 LV 125/-10, 12 10:16:09 LV 121/-11, 12 10:16:16 LV 117/-8, 12 10:16:38 PW 12/12 (8) 10:16:38 LV 120/-5, 17 10:17:02 RV 31/5, 8 10:17:02 LV 116/-9, 10 10:17:09 RV 30/4, 8 10:17:09 LV 118/-11, 14 10:18:53 LVp 115/-14, 13 10:19:00 AOp 114/64 (87) 10:19:05 Valve Area (c P-P/ms Time AIR REST Aortic 3.50 14.7 mn/108 ms 1.0 pk/108 ms 10:19:00 Type SV CO (l/m) CI (l/m/ HR Time AIR REST Thermal 82.40 7.58 3.40 92 08:01:20 Ruddy 72.10 6.63 2.97 92 08:01:20 Label % O2 Pres/Loc Time AIR REST PA 58 PA 10:24:11 AO 82 PV 10:24:16 Signed By Dakota Rivera MD On 07/15/2018 11:18:32 Dakota Rivera MD
[2018-07-15] MEDS: 0.9% Normal Saline 1,000 ML 150 ML IV (12:08)
--- NOTE | 2018-07-15 13:39 | CRPHASE1 ---
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 Phase I Charge:: Level I - Education Risk Factors/Lifestyle Smoking Status: Former smoker Packs Smoked per Day: 1 Hx Hypertension: Yes - ON MEDS Hx Diabetes Mellitus Type 2: No Hx Metabolic Disorders: Yes Hx Dyslipidemia: Yes Hx Obesity: Yes Height: 1.73 m Weight:: 111.13 kg BMI: 37.2 ETOH: No Caffeine: Yes Substance Abuse: No Family History: Family History (Last Reviewed 07/07/18 @ 10:40 by Leonie Hermosillo) Mother Heart disease Myocardial infarction CHF (congestive heart failure) Father Myocardial infarction Heart disease Brother Heart disease Myocardial infarction Brother Heart disease Myocardial infarction Daughter Heart murmur Past Cardiac Illness: Coronary Artery Disease, Previous PCI w/Stent Phase I Education Given On:: [place], Nutrition, Antiplatelet medication Issues Affecting Care:: None Knowledge of Condition:: Yes Hospital Course Cardiac Cath Date:: 07/15/18 Medical/Surgical History OK:: Yes - 18 YRS AGO FIRST ONE Pulmonary:: Yes COPD:: Yes СВЕТЛАНА:: No - BEING RETESTED Diabetes Type II:: No Hypertension:: Yes Dyslipidemia:: Yes Arthritis:: Yes Cancer:: Yes - COLON AND ON THE FACE Renal:: No Thyroid:: No Depression:: No Anxiety:: No PTCA:: Yes Discharge/Home/Social Eval Discharge Disposition: Home
--- NOTE | 2018-07-15 13:43 | CRPHASE1_ITS ---
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 Phase I Charge:: Level I - Education Risk Factors/Lifestyle Smoking Status: Former smoker Packs Smoked per Day: 1 Hx Hypertension: Yes - ON MEDS Hx Diabetes Mellitus Type 2: No Hx Metabolic Disorders: Yes Hx Dyslipidemia: Yes Hx Obesity: Yes Height: 1.73 m Weight:: 111.13 kg BMI: 37.2 ETOH: No Caffeine: Yes Substance Abuse: No Family History: Family History (Last Reviewed 07/07/18 @ 10:40 by Leonie Hermosillo) Mother Heart disease Myocardial infarction CHF (congestive heart failure) Father Myocardial infarction Heart disease Brother Heart disease Myocardial infarction Brother Heart disease Myocardial infarction Daughter Heart murmur Past Cardiac Illness: Coronary Artery Disease, Previous PCI w/Stent Phase I Education Given On:: [place], Nutrition, Antiplatelet medication Issues Affecting Care:: None Knowledge of Condition:: Yes Hospital Course Cardiac Cath Date:: 07/15/18 Medical/Surgical History DC:: Yes - 18 YRS AGO FIRST ONE Pulmonary:: Yes COPD:: Yes СВЕТЛАНА:: No - BEING RETESTED Diabetes Type II:: No Hypertension:: Yes Dyslipidemia:: Yes Arthritis:: Yes Cancer:: Yes - COLON AND ON THE FACE Renal:: No Thyroid:: No Depression:: No Anxiety:: No PTCA:: Yes Discharge/Home/Social Eval Discharge Disposition: Home
--- NOTE | 2018-07-15 13:43 | CRPH1.INSTRU ---
General Education CAD and cardiac anatomy and function:: Patient communicates acknowledgment Explanation of diagnoses and procedures:: Patient communicates acknowledgment Sign/Symptoms of [place]:: Patient communicates acknowledgment Antiplatelet therapy: Patient communicates acknowledgment Proper use of NTG-SL: Patient communicates acknowledgment Emergency procedures and activation of EMS: Patient communicates acknowledgment Compliance of all prescribed medications: Patient communicates acknowledgment Smoking Patient Nicotine/Smoking Risk Factors Are:: Non-smoker - QUIT 2 YRS AGO Dyslipidemia Recommendations Include:: Lipid profile not available Overweight/Obesity Patient Overweight/Obesity Risk Factors Are:: Overweight = 26-29 Overweight/Obesity:: Patient communicates acknowledgment Hypertension Recommendations Include:: Maintain BP <130/85, Decrease/maintain normal body weight Hypertension:: Patient communicates acknowledgment Heart Disease Patient Heart Disease Risk Factors Are:: Family history of heart disease < 65 years old, Previous cardiac event Heart Disease Response Code:: Patient communicates acknowledgment - HAS AN ANEURYSM THAT IS GOING TO BE REPAIRED Diabetes Patient Diabetes Risk Factors Are:: No documented hx of diabetes Metabolic Syndrome Patient Metabolic Syndrome Risk Factors Are [3 of 5]:: Waist circumference > 35 [female] or 40 [male], Hypertension Metabolic Syndrome Response Code:: Patient communicates acknowledgment Sedentary Patient Sedentary Risk Factors Are:: Lack of regular exercise Stress Patient Stress Risk Factors Are:: Patient denies stress as a risk factor
--- NOTE | 2018-07-15 13:46 | CRPH1.INST_ITS ---
General Education CAD and cardiac anatomy and function:: Patient communicates acknowledgment Explanation of diagnoses and procedures:: Patient communicates acknowledgment Sign/Symptoms of [place]:: Patient communicates acknowledgment Antiplatelet therapy: Patient communicates acknowledgment Proper use of NTG-SL: Patient communicates acknowledgment Emergency procedures and activation of EMS: Patient communicates acknowledgment Compliance of all prescribed medications: Patient communicates acknowledgment Smoking Patient Nicotine/Smoking Risk Factors Are:: Non-smoker - QUIT 2 YRS AGO Dyslipidemia Recommendations Include:: Lipid profile not available Overweight/Obesity Patient Overweight/Obesity Risk Factors Are:: Overweight = 26-29 Overweight/Obesity:: Patient communicates acknowledgment Hypertension Recommendations Include:: Maintain BP <130/85, Decrease/maintain normal body weight Hypertension:: Patient communicates acknowledgment Heart Disease Patient Heart Disease Risk Factors Are:: Family history of heart disease < 65 years old, Previous cardiac event Heart Disease Response Code:: Patient communicates acknowledgment - HAS AN ANEURYSM THAT IS GOING TO BE REPAIRED Diabetes Patient Diabetes Risk Factors Are:: No documented hx of diabetes Metabolic Syndrome Patient Metabolic Syndrome Risk Factors Are [3 of 5]:: Waist circumference > 35 [female] or 40 [male], Hypertension Metabolic Syndrome Response Code:: Patient communicates acknowledgment Sedentary Patient Sedentary Risk Factors Are:: Lack of regular exercise Stress Patient Stress Risk Factors Are:: Patient denies stress as a risk factor
[2018-07-15 14:51] LABS: Base Excess -5 mmol/L (-2 to +2); Bicarbonate 22.3 mmol/L (22-26); Blood Gas Specimen Type ART; PO2 56 mmHG (75-100); SO2 82 % (95-99); Total Carbon Dioxide 24 mmol/L; pCO2 53.4 mmHg (35-45); pH 7.23 (7.35-7.45)
[2018-07-15 14:51] LABS: ACT Activated Clotting Time 191 sec (74-137)
[2018-07-15 14:51] LABS: Blood Gas Specimen Type VEN; VBG BASE EXCESS 5 mmol/L (-1.0-3.5); VBG Bicarbonate 30 mmol/L (22-26); VBG Oxygen Content 32 mmol/L (23-33); VBG PO2 34 mmHg (25-40); VBG SO2 62 % (50-70); VBG pCO2 52.7 mmHg (41-51); VBG pH 7.36 (7.32-7.42)
[2018-07-15 14:51] LABS: Blood Gas Specimen Type VEN; VBG BASE EXCESS 4 mmol/L (-1.0-3.5); VBG Bicarbonate 30 mmol/L (22-26); VBG Oxygen Content 31 mmol/L (23-33); VBG PO2 32 mmHg (25-40); VBG SO2 57 % (50-70); VBG pH 7.36 (7.32-7.42)
--- NOTE | 2018-07-15 15:52 | PCM.DC.CCA ---
Discharge Diet: Low fat/ Low Cholesterol Discharge Activity: Return to Normal Activity May shower in (days): 1 May resume sexual activity in: 10-14 days Lifting Restrictions: Do not lift anything greater than 10 pounds for 3 days Call your doctor if your incision/area has: Continuous Slow Oozing, Sudden Increased Bleeding, Increased Pain/ Swelling, Increased Redness, Foul Smelling Discharge, Swelling at the incision site Call your doctor if you observe: Fever of 101 or Higher, Shortness of breath, Chest pain Remove Dressing in (days):: 1 Cleanse incision/area with: Soap & Water Additional Instructions: Doctor Goddard's office has been contacted regarding recent intervention. Please contact their office to ensure follow-up appointment is made once discharged. Allergies/Adverse Reactions: Allergies No Known Allergies Allergy (Verified 07/15/18 07:49) Medications to take at Discharge Clopidogrel Bisulfate [Clopidogrel] 75 mg PO DAILY 06/25/16 Ipratropium/Albuterol Respimat [Combivent Respimat Inhal [place]] 1 puff INHALATION 4X/DAY 06/25/16 Lisinopril 5 mg PO QHS 06/25/16 Nitroglycerin [Nitrostat] 0.4 mg SUBLINGUAL Q5M PRN 06/25/16 Lovastatin [Mevacor] 40 mg PO QHS 03/20/17 Metoprolol(XL)Succ [Toprol Xl (Beta Hoang)] 50 mg PO QHS 03/20/17 mupirocin 2 % topical cream 1 applic TOPICAL BID #30 g 03/04/18 aspirin 325 mg tablet 325 mg PO DAILY 07/07/18 Primary Care Physician: Celio Shaikh MD [Primary Care Provider] - Test Results: Test results from this visit will be discussed in further detail at your follow-up appointment, if applicable. Please Follow Up With: Dr. Goddard When: 2 weeks or as directed by his office Proposed Discharge Date: 07/16/18 Cardiac Rehabilitation Info Cardiac Rehabilitation Program Information: Cardiac Rehabilitation is important for patients like you who are recovering from a heart problem. Cardiac rehabilitation programs are recognized as integral to the continued care of the patient with coronary heart disease. The cardiac rehabilitation program is designed to optimize a patient's physical, psychological, and social functioning. Health direct care staffer work in cardiac rehabilitation programs and assist you with getting the treatments you need to get stronger and healthier - like exercise, healthy eating habits, and medications. Cardiac rehabilitation has been show to help people with heart problems live longer and have better life enjoyment than people who do not go to cardiac rehabilitation. Please contact the Cardiac Rehabilitation Program at [facility] at in two weeks if you have not heard from them.
--- NOTE | 2018-07-15 15:55 | DCINST_ITS ---
Discharge Diet: Low fat/ Low Cholesterol Discharge Activity: Return to Normal Activity May shower in (days): 1 May resume sexual activity in: 10-14 days Lifting Restrictions: Do not lift anything greater than 10 pounds for 3 days Call your doctor if your incision/area has: Continuous Slow Oozing, Sudden Increased Bleeding, Increased Pain/ Swelling, Increased Redness, Foul Smelling Discharge, Swelling at the incision site Call your doctor if you observe: Fever of 101 or Higher, Shortness of breath, Chest pain Remove Dressing in (days):: 1 Cleanse incision/area with: Soap & Water Additional Instructions: Doctor Goddard's office has been contacted regarding recent intervention. Please contact their office to ensure follow-up appointment is made once discharged. Allergies/Adverse Reactions: Allergies No Known Allergies Allergy (Verified 07/15/18 07:49) Medications to take at Discharge Clopidogrel Bisulfate [Clopidogrel] 75 mg PO DAILY 06/25/16 Ipratropium/Albuterol Respimat [Combivent Respimat Inhal [place]] 1 puff INHALATION 4X/DAY 06/25/16 Lisinopril 5 mg PO QHS 06/25/16 Nitroglycerin [Nitrostat] 0.4 mg SUBLINGUAL Q5M PRN 06/25/16 Lovastatin [Mevacor] 40 mg PO QHS 03/20/17 Metoprolol(XL)Succ [Toprol Xl (Beta Hoang)] 50 mg PO QHS 03/20/17 mupirocin 2 % topical cream 1 applic TOPICAL BID #30 g 03/04/18 aspirin 325 mg tablet 325 mg PO DAILY 07/07/18 Primary Care Physician: Celio Shaikh MD [Primary Care Provider] - Test Results: Test results from this visit will be discussed in further detail at your follow- up appointment, if applicable. Please Follow Up With: Dr. Goddard When: 2 weeks or as directed by his office Proposed Discharge Date: 07/16/18 Cardiac Rehabilitation Info Cardiac Rehabilitation Program Information: Cardiac Rehabilitation is important for patients like you who are recovering from a heart problem. Cardiac rehabilitation programs are recognized as integral to the continued care of the patient with coronary heart disease. The cardiac rehabilitation program is designed to optimize a patient's physical, psychological, and social functioning. Health pharmacy care coordinator work in cardiac rehabilitation programs and assist you with getting the treatments you need to get stronger and healthier - like exercise, healthy eating habits, and medications. Cardiac rehabilitation has been show to help people with heart problems live longer and have better life enjoyment than people who do not go to cardiac rehabilitation. Please contact the Cardiac Rehabilitation Program at [facility] at in two weeks if you have not heard from them.
[2018-07-15] MEDS: Lisinopril 5 MG Tablet PO (21:16)
[2018-07-15] MEDS: Metoprolol(XL)Succ 50 MG Tablet PO (21:16)
[2018-07-15] MEDS: Atorvastatin Calcium 10 MG Tablet PO (21:16)
[2018-07-15] MEDS: Acetaminophen 325 MG Tablet 650 MG PO (23:57)
[2018-07-16] VITALS (17 sets, daily range): BP systolic 110–164; BP diastolic 56–87; PULSE 65–90; RESP 13–25; TEMP 36.6–36.8; O2SAT 89–95
[2018-07-16 04:32] LABS: Hematocrit 38.1 % (40-54); Hemoglobin 13.1 g/dl (13.0-16.5); Mean Corp Hgb Conc 34.4 g/gl (32-36); Mean Corpuscular Hgb 33.7 pg (27.0-32.0); Mean Corpuscular Volume 97.9 fL (80-94); Mean Platelet Vol. 9.6 fl (6.2-12.0); Platelet Count 109 K/mm3 (150-450); RBC Distribution Width CV 12.2 % (11.6-14.6); RBC Distribution Width SD 42.7 fl (35.1-43.9); Red Blood Count 3.89 M/mm3 (4.6-6.2); White Blood Count 5.7 K/mm3 (4.4-11.0)
[2018-07-16 04:33] LABS: Scan Indicated on CBC? Y/N NO
[2018-07-16 04:53] LABS: Anion Gap 8 (5-15); BUN 14 mg/dL (7-18); BUN/Creat Ratio 14.8 RATIO (10-20); Calcium,Total 8.4 mg/dL (8.5-10.1); Chloride 108 mmol/L (98-107); Cholesterol 144 mg/dL (200); Creatinine, Serum 0.94 mg/dL (0.70-1.30); EST Glomerular Filtration Rate 85 mL/min (>60); Est Glom Filt Rate - Afr Amer 103 mL/min (>60); Estimated Creatinine Clearance 76.81 ml/min; Glucose 102 mg/dL (74-106); High Density Lipoprotein 25 mg/dL; Potassium 4.2 mmol/L (3.5-5.1); Sodium Level 145 mmol/L (136-145); Triglycerides 469 mg/dL
[2018-07-16] MEDS: Aspirin 325 MG Tablet PO (08:11)
[2018-07-16] MEDS: Clopidogrel Bisulfate 75 MG Tablet PO (08:11)
--- NOTE | 2018-07-16 10:00 | EKG12_ITS ---
Test Reason : AM EKG Blood Pressure : / mmHG Vent. Rate : 074 BPM Atrial Rate : 074 BPM P-R Int : 150 ms QRS Dur : 136 ms QT Int : 404 ms P-R-T Axes : 043 087 051 degrees QTc Int : 448 ms Normal sinus rhythm Right bundle branch block Abnormal ECG Confirmed by Aisha Cortez ([id number]), newspaper editor LEROY MA ([id number]) on 07/20/2018 3:36:12 PM Referred By: Dakota Rivera Confirmed By:Aisha Cortez
--- NOTE | 2018-07-16 11:17 | PCM.PN.CARD ---
Subjectve: Patient doing very well overnight, no chest pain. Right groin is clean/dry/intact without evidence of thrills, bruits or hematoma. He has had no chest pain. EKG showed normal sinus rhythm with right bundle branch block, no acute changes. Telemetry shows normal sinus rhythm with rare PVCs. Objective: Vital Signs Temp Pulse Resp BP Pulse Ox 98.2 F 84 25 H 134/64 H 90 07/16/18 00:00 07/16/18 09:00 07/16/18 09:00 07/16/18 09:00 07/16/18 09:00 Oxygen Flow Rate (L/min) 3 Oxygen Delivery Method Nasal Cannula Weight: 247 lb 2.211 oz Body Mass Index (BMI) 39.6 Intake and Output for Last 24 Hours 07/14/18 07/15/18 07/16/18 23:59 23:59 23:59 Intake Total 1048 / 1048 942 / 942 Output Total 300 / 300 1750 / 1750 Balance 748 / 748 -808 / -808 General: Awake, Alert, Oriented x 3 HEENT: PERRL, EOMI, Sclera Non Icteric Neck: Supple, Good ROM, No Lymph Node Enlargement Lungs: Clear to auscultation Cardiovascular: Regular Rhythm, Normal S1, Normal S2, No Murmurs, No Rubs, No Gallops Vascular: No Carotid Bruits, Normal Femoral Pulses, Normal Radial Pulses, Normal Dorsalis Pedal Pulse, Normal Posterior Tibial Pulses Abdomen: Bowel Sounds Present, Soft, Non Tender, No HSM, No Organomegaly Extremities: No Cyanosis, No Clubbing, No edema Neurological: No Focal Motor or Sensory Deficit 07/15/18 10:15: VBG pH 7.36, VBG pO2 32, VBG O2 Sat (Calc) 57, VBG O2 Content 31, VBG Base Excess 4 H 07/15/18 10:18: VBG pH 7.36, VBG pO2 34, VBG O2 Sat (Calc) 62, VBG O2 Content 32, VBG Base Excess 5 H 07/15/18 10:21: pH 7.23 L, Bicarbonate Actual 22.3, POC Total CO2 24, Base Excess -5 L, O2 Saturation 82 L, ABG pCO2 53.4 H, ABG pO2 56 L 07/16/18 04:00: WBC 5.7, RBC 3.89 L, Hgb 13.1, Hct 38.1 L, MCV 97.9 H, MCH 33.7 H, MCHC 34.4, RDW 12.2, RDW Differential 42.7, Plt Count 109 L, MPV 9.6 07/16/18 04:00: Sodium 145, Potassium 4.2, Chloride 108 H, Carbon Dioxide 29.0, Anion Gap 8, BUN 14, Creatinine 0.94, Est GFR (MDRD) Af Amer 103, Est GFR (MDRD) Non-Af 85, BUN/Creatinine Ratio 14.8, Glucose 102, Calcium 8.4 L, Triglycerides 469 H, Cholesterol 144, LDL Cholesterol TNP, VLDL Cholesterol TNP, HDL Cholesterol 25 L Rhythm: EKG: ECHO: Stress Test: Cardiac Cath: PCI: CT Surgery: Holter monitor: EPS: PPM: CXR: Chest CT Scan: Medical Necessity - Tobacco Use Smoking Status: Former smoker Assessment/Plan 1. Coronary artery disease: Patient is status post angioplasty and drug-eluting stent to the mid left circumflex artery with an excellent result. No additional stenting required at this time. 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 Song. Patient will undergo a CV surgery consultation for possible intervention at Dr. Song's discretion. In the meantime I recommend lifelong aspirin and Plavix to avoid thrombosis of his aneurysmal area until this is addressed or corrected. He will continue baby aspirin and Plavix for at least one years time. 2. Positive bubble study: According to Dr. Song the patient had a positive bubble study by echocardiogram. Right heart catheterization yesterday showed normal right-sided pressures, normal PA pressures, normal pulmonary artery saturation, but increased cardiac output by thermal dilution. Do not believe the patient has a cardiac shunt at this time, but would recommend additional investigative measures such as a CT scan of the chest and possible evaluation for intrapulmonary or intrahepatic shunting. His O2 sats did improve with oxygenation suggesting that he has an intrinsic lung disorder. Recommend he continue oxygen at home. 3. Hyperlipidemia: Continue statin based medications. 4. Patient may be discharged home and follow-up with Dr. Song. I spoke with Dr. Song this morning and relayed the findings of the patient's cardiac catheterization, right heart catheterization, and closure device. Code Visit Inpatient E&M: 61292 Subs Hosp L2
== END 2018-07-16 12:55 | disposition home or self-care (01) ==
LOC: CLSP 07:43 → ICU 10:47
PROVIDERS: Family Provider Family Medicine; PCP Family Medicine; Referring Provider Internal Medicine Cardiovascular Disease; Visit Provider Internal Medicine Cardiovascular Disease
DX: I25.10 Atherosclerotic heart disease of native coronary artery without angina pectoris (principal); I49.3 Ventricular premature depolarization; Z23 Encounter for immunization; R09.02 Hypoxemia; E11.9 Type 2 diabetes mellitus without complications; I10 Essential (primary) hypertension; E78.5 Hyperlipidemia, unspecified; G47.33 Obstructive sleep apnea (adult) (pediatric); I45.10 Unspecified right bundle-branch block; E66.9 Obesity, unspecified; Z79.899 Other long term (current) drug therapy; Z79.82 Long term (current) use of aspirin
CPT/HCPCS: 80048; 80061; 82803; 85027; 85347; 92928; 93005; 93460; 94640; 99152; 99153; C1760; G0008; J7030; J7040; 90686; C1725; C1751; C1769; C1887; C1894; C9600; Q9967

== ENCOUNTER → 2018-09-09 13:53 | Outpatient (CLI) | payer MEDICARE, SELFPAY ==
[2018-07-15 13:42] VITALS: BMI 37.2
[2018-09-09 14:30] LABS: BUN 16 mg/dL (7-18); Creatinine, Serum 1.05 mg/dL (0.70-1.30); Glucose 102 mg/dL (74-106)
[2018-09-09 14:31] LABS: Anion Gap 3 (5-15); BUN/Creat Ratio 15.2 RATIO (10-20); Chloride 104 mmol/L (98-107); EST Glomerular Filtration Rate 75 mL/min (>60); Est Glom Filt Rate - Afr Amer 91 mL/min (>60); Potassium 4.2 mmol/L (3.5-5.1); Sodium Level 139 mmol/L (136-145)
== END ==
PROVIDERS: Family Provider Family Medicine; PCP Family Medicine; Referring Provider Nurse Practitioner Acute Care; Visit Provider Nurse Practitioner Acute Care
DX: R06.00 Dyspnea, unspecified (principal)
CPT/HCPCS: 36415; 80048; 83880

== ENCOUNTER 2021-06-19 16:13 | Inpatient (IN) | payer MEDICARE, SELFPAY ==
[2018-07-15 13:42] VITALS: BMI 37.2
[2021-06-19] VITALS (11 sets, daily range): BP systolic 120–146; BP diastolic 71–87; PULSE 82–102; RESP 16–30; TEMP 36–37.2; O2SAT 75–92; BMI 37.4; BMI 35.2
--- NOTE | 2021-06-19 16:37 | EKG12_ITS ---
Test Reason : SOB Blood Pressure : / mmHG Vent. Rate : 095 BPM Atrial Rate : 095 BPM P-R Int : 142 ms QRS Dur : 140 ms QT Int : 384 ms P-R-T Axes : 056 088 063 degrees QTc Int : 482 ms Sinus rhythm with Premature atrial complexes Right bundle branch block Abnormal ECG Confirmed by JADA WISE, ASHVIN ([id number]), material expeditor VICENTA VASQUEZ ([id number]) on 06/21/2021 8:55:19 AM Referred By: Confirmed By:ASHVIN ELIAS MD
--- NOTE | 2021-06-19 16:50 | RAD_ITS ---
STUDY: X-RAY CHEST REASON FOR EXAM: Male, 65 years old. hypoxia TECHNIQUE: Single AP portable view of the chest. COMPARISON: 03/20/2017 FINDINGS: Alveolar opacity in the upper right lung consistent with right upper lobe pneumonia. There is no demonstrated pleural abnormality. Normal size heart. Normal mediastinum and bertha. Normal visualized pulmonary arteries. Normal visualized aortic arch and descending thoracic aorta. Normal visualized thoracic spine. Normal visualized ribs, clavicles, and shoulders. There is no demonstrated abnormality of the visualized soft tissue structures of the upper abdomen. RAD/Chest 1 View (Portable) IMPRESSION: Right upper lobe pneumonia. Electronically Signed: Dutch Xiong MD at 17:05 EDT Tel , Service support ,
--- NOTE | 2021-06-19 17:19 | ED.VIS.DYS ---
HPI History of Present Illness Chief Complaint: Shortness of Breath Narrative Narrative: 65-year-old male presenting with dyspnea. Patient states this is been going on for about 5 days. He states he has a history of COPD. He is currently a non-smoker. He states he has body aches and chills. He has no change in taste or smell. He does not believe he had a fever. He has been vaccinated for COVID-19. He denies chest pain. Patient is on an oxygen concentrator at home which maxes out at 5 L. He states he does not use this all the time. He states his oxygen typically is between eighty and eighty-five at home. On arrival he showed up with O2 sats in the 70s. He is placed on 6 L O2 nasal cannula and states he feels okay. He states he does not feel any different than the arrival. Patient denies nausea, vomiting, diarrhea, urinary symptoms. [facility] Medical History Abdominal pain Acute myocardial infarction Atherosclerotic heart disease of [place] coronary artery without angina pectoris Benign neoplasm Cancer of skin of left ear Chronic hypoxemic respiratory failure Colon cancer COPD (chronic obstructive pulmonary disease) Diverticulitis of colon (without mention of hemorrhage) Dyspnea Former smoker Hernia Hyperlipidemia Hyperlipidemia, mixed Hypertension Impaired glucose tolerance Malignant neoplasm of colon Patent foramen ovale Pneumonia, organism unspecified Ruptured appendix Home Medications clopidogrel 75 mg PO DAILY 06/25/16 [History Last Taken 07/15/18] lisinopril 5 mg PO QHS 06/25/16 [History Last Taken 07/14/18] nitroglycerin 0.4 mg SUBLINGUAL Q5M PRN 06/25/16 [History Last Taken Unknown] lovastatin 40 mg PO QHS 03/20/17 [History Last Taken 07/14/18] metoprolol succinate 50 mg PO QHS 03/20/17 [History Last Taken 07/14/18] aspirin 325 mg tablet 325 mg PO DAILY 07/07/18 [History Last Taken 07/15/18] ipratropium 20 mcg-albuterol 100 mcg/actuation mist for inhalation 1 puff INHALATION 4X/DAY #4 g 08/19/18 [Rx Last Taken Unknown] Allergy/AdvReac Type Severity Reaction Status Date / Time No Known Allergies Allergy Verified 09/18/18 10:11 Family History Mother Heart disease Myocardial infarction CHF (congestive heart failure) Father Myocardial infarction Heart disease Brother Heart disease Myocardial infarction Brother Heart disease Myocardial infarction Daughter Heart murmur Surgical History Abnormal colonoscopy Encounter for fitting or adjustment of device Encounter for removal of vascular catheter H/O heart artery stent S/P colonoscopic polypectomy Status post laparoscopic colectomy Stented coronary artery Social History number of children: 6 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, 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 current occupation: [employer] current occupational exposures/hazards: Yes ([employer]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) Smoking Status: Former smoker quit date: 06/24/16 how long ago did patient quit smokin, 1.5ppd second hand exposure: Yes (SPOUSE SMOKES IN THE HOME) substance use type: does not use what type of physical activity do you participate in: none seatbelt use: always ROS ROS ED Constitutional Constitutional ED: Reports chills; Denies fever(s) or weight loss Eyes Eyes: Denies blurry vision or diplopia ENT ENT ED: Denies rhinorrhea or sore throat Cardiovascular Cardiovascular: Denies chest pain or palpitations Respiratory/Chest Respiratory/Chest: Reports cough, dyspnea and dyspnea on exertion Gastrointestinal Gastrointestinal: Denies abdominal pain, diarrhea, nausea or vomiting Genitourinary Genitourinary ED: Denies dysuria or hematuria Musculoskeletal Musculoskeletal: Reports myalgias; Denies arthralgias or neck pain Integumentary Denies Abrasions or rash Neurologic Neurologic: Denies headache(s) or paresthesias EXAM Physical Exam Const Vital Signs: 06/19/21 16:14 06/19/21 16:16 06/19/21 16:42 Temperature 96.8 F L Temperature Source Temporal Pulse Rate 101 H 93 Respiratory Rate 30 H 25 H 18 Respiratory Effort Short of Breath Respiratory Depth Shallow Respiratory Pattern Irregular Blood Pressure 146/82 H Blood Pressure Mean 103 Pulse Ox 75 90 90 Oxygen Delivery Method Room Air Nasal Cannula Nasal Cannula Oxygen Flow Rate (L/min) 4 5 06/19/21 18:25 06/19/21 19:00 06/19/21 19:53 Temperature 97.8 F 98.9 F Temperature Source Temporal Temporal Pulse Rate 102 H 98 98 Respiratory Rate 21 H 23 H 23 H Respiratory Effort Respiratory Depth Respiratory Pattern Blood Pressure 120/73 125/71 H 125/71 H Blood Pressure Mean 88 89 89 Pulse Ox 89 89 89 Oxygen Delivery Method Nasal Cannula Nasal Cannula Nasal Cannula Oxygen Flow Rate (L/min) 6 6 6 06/19/21 20:00 06/19/21 21:11 06/19/21 21:12 Temperature 98.9 F 97.8 F 97.8 F Temperature Source Temporal Temporal Temporal Pulse Rate 87 83 Respiratory Rate 16 23 H Respiratory Effort Respiratory Depth Respiratory Pattern Blood Pressure 128/78 H 129/87 H Blood Pressure Mean 94 101 Pulse Ox 89 89 Oxygen Delivery Method Nasal Cannula Nasal Cannula Oxygen Flow Rate (L/min) 6 6 Positive obese General Appearance ED: NAD Nutritional Appearance: obese HEENT Reports dry mucous membranes atraumatic Mouth ED: Yes dry mucous membranes Mouth: dry mucous membranes Eyes PERRL and EOMs intact bilaterally General Eye ED: Negative for pale conjunctiva or scleral icterus Resp Auscultation: rales bilateral and diminished lung sounds Cardio regular rhythm Rate: tachycardic Neuro oriented x3, CN's II-XII intact bilaterally and no sensory deficits noted Sensorium / Orientation: alert Motor Exam: strength 5/5 throughout Psych mental status grossly normal Thought Process: normal thought process Skin no wounds and skin turgor normal Lesions: no lesions Rashes: no rashes MDM MDM MDM Narrative Medical decision making narrative: 65-year-old male presenting with shortness of breath, chills and myalgias for about 5 days. Has not had a fever. He arrived with his oxygen sats at 78%. He states he normally lives in the mid to upper 80s. He does have a oxygen concentrator that only goes up to 5 but he states he does not use this all the time. Patient does not have any chest pain. I did give him Solu-Medrol and breathing treatments to see if he would open up and may be auscultated some wheezing however he does not appear to be wheezing on examination. EKG performed on arrival interpreted by myself shows a sinus rhythm with a ventricular rate of 95 bpm without signs of ischemic changes. Chest x-ray is interpreted by myself shows a right upper lobe pneumonia. The radiologist does agree. Patient's lab work shows no leukocytosis. Hemoglobin hematocrit are stable. Renal function electrolytes are normal. Patient is slightly dehydrated. Procalcitonin is negative. Lactic acid is negative. Coagulation studies are normal. Rapid Covid and PCR are both negative. Patient states he has a history of blood clots and therefore I did obtain a CTA of the chest which shows diffuse interstitial lung opacities greater on the right than left as interpreted by the radiologist. Since his Covid testing is negative I will start him on Rocephin and azithromycin for community-acquired pneumonia. He is currently at 90% on 6 L and feels comfortable and is mentating clearly. He states that this oxygen saturation is higher than his baseline. Patient was discussed with hospitalist for admission. Patient stable on transfer to the floor Impression: 1. Hypoxic respiratory failure 2. Commune acquired pneumonia Lab Data Labs: Laboratory Results - last 24 hr 06/19/21 06/19/21 06/19/21 16:25 16:25 16:25 WBC 5.8 RBC 4.82 Hgb 16.2 Hct 48.1 MCV 99.8 H MCH 33.6 H MCHC 33.7 RDW Std Deviation 46.5 H RDW Coeff of Haley 12.4 Plt Count 151 MPV 10.1 Immature Gran % (Auto) 0.700 Neut % (Auto) 73.8 H Lymph % (Auto) 17.9 L Coffee % (Auto) 5.0 Eos % (Auto) 2.4 Baso % (Auto) 0.2 Absolute Neuts (auto) 4.2 Absolute Lymphs (auto) 1.03 Nucleated RBC % 0 PT INR APTT Sodium 136 Potassium 4.1 Chloride 100 Carbon Dioxide 32.0 Anion Gap 4 L BUN 28 H Creatinine 0.94 Estim Creat Clear Calc 73.78 Est GFR (MDRD) Af Amer 102 Est GFR (MDRD) Non-Af 85 BUN/Creatinine Ratio 29.7 H Glucose 104 Lactic Acid Calcium 8.5 Total Bilirubin 0.50 AST 45 H ALT 23 Alkaline Phosphatase 69 Troponin I High Sens 15 Total Protein 7.7 Albumin 2.7 L Globulin 5.0 H Albumin/Globulin Ratio 0.5 L Procalcitonin 0.16 H Urine Color Urine Clarity Urine pH Ur Specific [place] Urine Protein Urine Glucose (UA) Urine Ketones Urine Occult Blood Urine Nitrite Urine Bilirubin Urine Urobilinogen Ur Leukocyte Esterase Urine RBC Urine WBC Ur Squamous Epith Cells Urine Bacteria Urine Mucus COVID-19 ([facility]) 06/19/21 06/19/21 06/19/21 17:34 17:34 17:57 WBC RBC Hgb Hct MCV MCH MCHC RDW Std Deviation RDW Coeff of Haley Plt Count MPV Immature Gran % (Auto) Neut % (Auto) Lymph % (Auto) Coffee % (Auto) Eos % (Auto) Baso % (Auto) Absolute Neuts (auto) Absolute Lymphs (auto) Nucleated RBC % PT 12.7 INR 1.0 APTT 28.6 Sodium Potassium Chloride Carbon Dioxide Anion Gap BUN Creatinine Estim Creat Clear Calc Est GFR (MDRD) Af Amer Est GFR (MDRD) Non-Af BUN/Creatinine Ratio Glucose Lactic Acid 1.0 Calcium Total Bilirubin AST ALT Alkaline Phosphatase Troponin I High Sens Total Protein Albumin Globulin Albumin/Globulin Ratio Procalcitonin Urine Color Urine Clarity Urine pH Ur Specific [place] Urine Protein Urine Glucose (UA) Urine Ketones Urine Occult Blood Urine Nitrite Urine Bilirubin Urine Urobilinogen Ur Leukocyte Esterase Urine RBC Urine WBC Ur Squamous Epith Cells Urine Bacteria Urine Mucus COVID-19 ([facility]) Not Detected 06/19/21 19:50 WBC RBC Hgb Hct MCV MCH MCHC RDW Std Deviation RDW Coeff of Haley Plt Count MPV Immature Gran % (Auto) Neut % (Auto) Lymph % (Auto) Coffee % (Auto) Eos % (Auto) Baso % (Auto) Absolute Neuts (auto) Absolute Lymphs (auto) Nucleated RBC % PT INR APTT Sodium Potassium Chloride Carbon Dioxide Anion Gap BUN Creatinine Estim Creat Clear Calc Est GFR (MDRD) Af Amer Est GFR (MDRD) Non-Af BUN/Creatinine Ratio Glucose Lactic Acid Calcium Total Bilirubin AST ALT Alkaline Phosphatase Troponin I High Sens Total Protein Albumin Globulin Albumin/Globulin Ratio Procalcitonin Urine Color Yellow Urine Clarity Clear Urine pH 6.5 Ur Specific [place] 1.010 Urine Protein 30 H Urine Glucose (UA) Normal Urine Ketones 50 H Urine Occult Blood 10 H Urine Nitrite Negative Urine Bilirubin Negative Urine Urobilinogen 8 H Ur Leukocyte Esterase 25 H Urine RBC 0-5 SEEN Urine WBC 0-5 SEEN Ur Squamous Epith Cells 0 SEEN Urine Bacteria 1+ Urine Mucus 0 SEEN COVID-19 ([facility]) Radiography Diagnostic Testing: Radiology Impression Chest X-Ray 06/19/21 16:50 IMPRESSION: Right upper lobe pneumonia. Electronically Signed: Dutch Xiong MD at 17:05 EDT Tel , Service support , Chest CTA 06/19/21 19:22 IMPRESSION: No demonstrated PE, or thoracic aortic aneurysm or dissection. However, the contrast bolus within the pulmonary arteries is not optimal Calcified coronary vessels Diffuse interstitial and airspace opacifications in both lung pal more advanced in the right lung than the left. Findings suggest Covid pneumonia. Degenerative bony changes Borderline enlarged mediastinal and perihilar lymph nodes Electronically Signed: Salvador Linn MD at 20:28 EDT , Service support , Discharge Plan Triage Chief Complaint: Shortness of Breath ED Provider: Manoj Mai Dx/Rx/DC Orders Prescriptions: No Action aspirin 325 mg tablet 325 mg PO DAILY RF: 0 ipratropium-albuterol 20-100 mcg/actuation mist 1 puff INHALATION 4X/DAY Qty: 4 RF: 6 clopidogrel 75 MG tablet 75 mg PO DAILY RF: 0 nitroglycerin 0.4 MG tablet 0.4 mg SUBLINGUAL Q5M PRN (Reason: Chest Pain) RF: 0 lisinopril 5 MG tablet 5 mg PO QHS RF: 0 lovastatin 40 MG tablet 40 mg PO QHS RF: 0 metoprolol succinate 50 MG tablet 50 mg PO QHS RF: 0 Primary Care Provider: Celio Shaikh
[2021-06-19] MEDS: Albuterol 2.5 MG/3 ML VIAL.NEB. INHALATION (17:23)
[2021-06-19] MEDS: Ipratropium/Albuterol Sulfate 3 ML AMPUL.NEB INHALATION (17:23)
[2021-06-19 17:24] LABS: Absolute Lymphocyte Count 1.03 X10^3/uL (0.83-4.51); Absolute Neutrophil Count 4.2 X10^3/uL (2.0-7.7); Basophil# 0.01 X10^3/uL; Basophil% 0.2 % (0-1); Eosinophil# 0.14 X10^3/uL; Eosinophils% 2.4 % (0-5); Hematocrit 48.1 % (40-54); Hemoglobin 16.2 g/dL (13.0-16.5); Lymphocyte # 1.03 X10^3/ul (0.83-4.51); Lymphocyte % 17.9 % (19-41); Mean Corp Hgb Conc 33.7 g/dL (32-36); Mean Corpuscular Hgb 33.6 pg (27.0-32.0); Mean Corpuscular Volume 99.8 fL (80-94); Mean Platelet Vol. 10.1 fl (6.2-12.0); Monocyte# 0.29 X10^3/uL; NRBC Flagged by Analyzer 0 % (0-5); Neutrophil # 4.24 X10^3/uL (2.7-7.7); Neutrophil % 73.8 % (47-70); Platelet Count 151 K/mm3 (150-450); RBC Distribution Width CV 12.4 % (11.6-14.6); RBC Distribution Width SD 46.5 fl (35.1-43.9); Red Blood Count 4.82 M/mm3 (4.6-6.2); White Blood Count 5.8 K/mm3 (4.4-11.0)
[2021-06-19 17:37] LABS: ALB/GLOB Ratio 0.5 RATIO (0.9-2.4); AST(SGOT) 45 U/L (15-37); Alanine Aminotransfer ALT/SGPT 23 U/L (16-61); Albumin, Serum 2.7 g/dL (3.2-5.0); Alkaline Phosphatase 69 U/L (45-117); Anion Gap 4 (5-15); BUN 28 mg/dL (7-18); BUN/Creat Ratio 29.7 RATIO (10-20); Calcium,Total 8.5 mg/dL (8.5-10.1); Chloride 100 mmol/L (98-107); Creatinine, Serum 0.94 mg/dL (0.70-1.30); EST Glomerular Filtration Rate 85 mL/min (>60); Est Glom Filt Rate - Afr Amer 102 mL/min (>60); Estimated Creatinine Clearance 73.78 ml/min; Glucose 104 mg/dL (74-106); Potassium 4.1 mmol/L (3.5-5.1); Protein, Total 7.7 g/dL (6.4-8.2); Sodium Level 136 mmol/L (136-145); Troponin-I HS 15 pg/mL (3.0-78.0)
[2021-06-19 17:41] LABS: Procalcitonin 0.16 ng/mL (0.00-0.09)
[2021-06-19 17:59] LABS: Prothrombin Time (Protime)PT. 12.7 SECONDS (11.7-14.9)
[2021-06-19 18:00] LABS: Partial Thromboplast Time 28.6 Seconds (24.1-36.2)
[2021-06-19] MEDS: MethylPREDNISolone 125 MG/2 ML Vial IV (18:24)
--- NOTE | 2021-06-19 19:22 | CT_ITS ---
STUDY: CTA CHEST REASON FOR EXAM: Male, 65 years old. Hypoxia RADIATION DOSAGE (If Supplied By Facility): CTDIvol = ( 10.89 ) mGy, DLP = ( 568.35 ) mGycm TECHNIQUE: The examination was performed with the intravenous administration of IV 100mL [id number]-370. Post-processing of the angiographic images was performed, with multiplanar reformation and 3D reconstruction. Individualized dose optimization techniques were used for this CT. COMPARISON: None. FINDINGS: There is limited enhancement of the main pulmonary artery and right and left pulmonary arteries. There is limited enhancement of the bilateral peripheral pulmonary arteries. There is no demonstrated pulmonary embolism. Normal thoracic aorta and visualized great vessels. There is no demonstrated aortic dissection. Normal heart and pericardium. There are calcifications of the coronary arteries. There are visualized mediastinal lymph nodes, which are within normal size limits, and with normal morphology. Normal hilar regions. There is peribronchial thickening. The lungs are hyper expanded, with flattening of the hemidiaphragms. Diffuse interstitial and airspace opacifications in both lung pla without effusions. This pattern of opacification is most suggestive of Covid pneumonia Normal pleura. Normal chest wall structures. There are degenerative changes of thoracic spine. Normal visualized upper abdomen. CT/CTA Chest W/WO Contrast IMPRESSION: No demonstrated PE, or thoracic aortic aneurysm or dissection. However, the contrast bolus within the pulmonary arteries is not optimal Calcified coronary vessels Diffuse interstitial and airspace opacifications in both lung pal more advanced in the right lung than the left. Findings suggest Covid pneumonia. Degenerative bony changes Borderline enlarged mediastinal and perihilar lymph nodes Electronically Signed: Salvador Linn MD at 20:28 EDT , Service support ,
[2021-06-19 19:55] LABS: Mucous, Urine 0 SEEN /hpf (<or=2+); Squamous Epithelial Cells - UA 0 SEEN /hpf (0-5)
[2021-06-19 20:04] LABS: Color, Urine Yellow (Yellow); Glucose, Dipstick Normal (Normal); Ketone-Dipstick 50 mg/dl (Negative); Leukocyte Esterase-Dipstick 25 /ul (Negative); Nitrite-Dipstick Negative (Negative); Occult Blood-Urine 10 /ul (Negative); Protein-Dipstick 30 mg/dl (Negative); Urine Bilirubin Dipstick Negative (Negative); Urine Clarity Clear (Clear); Urine Urobilinogen 8 mg/dl (Normal); Urine pH 6.5 (5.0 - 8.0)
[2021-06-19 20:10] LABS: Bacteria 1+ /hpf (None Seen); Red Blood Cells-Urine 0-5 SEEN /hpf (0-5); White Blood Cells 0-5 SEEN /hpf (0-5)
--- NOTE | 2021-06-19 21:56 | PCM.HP.STD ---
Documented by User: SHAHRIAR Moss 06/19/21 22:16 HPI - General General Date of Admission: 06/19/21 Date of Service: 06/19/21 Chief Complaint: Shortness of Breath HPI Narrative GABRIEL BENJAMIN, is a 65 M who presents with complaints of dyspnea for approximately 5 days. Patient states that he has had body aches and chills along with a productive cough. Patient denies fever or chills. Patient states that he has been fully vaccinated for COVID-19 patient reports that he has maxed out his home oxygen concentrator which goes up to 5 L. Patient states he typically wears 3 L at night and that his oxygen saturations typically run between 80 and 85% at home. Patient reports that he has had no subjective improvement since arrival to ER despite receiving multiple nebulizer treatments, increased oxygen through the nasal cannula and a dose of IV steroids. [facility] Medical History (Updated 06/19/21 @ 22:[address] Roberto Caldwell MD) Abdominal pain Acute myocardial infarction Atherosclerotic heart disease of [place] coronary artery without angina pectoris Benign neoplasm Cancer of skin of left ear Chronic hypoxemic respiratory failure Colon cancer COPD (chronic obstructive pulmonary disease) Diverticulitis of colon (without mention of hemorrhage) Dyspnea Former smoker Hernia Hyperlipidemia Hyperlipidemia, mixed Hypertension Impaired glucose tolerance Malignant neoplasm of colon Patent foramen ovale Pneumonia, organism unspecified Ruptured appendix Home Medications clopidogrel 75 mg PO DAILY 06/25/16 [History Last Taken 07/15/18] lisinopril 5 mg PO QHS 06/25/16 [History Last Taken 07/14/18] nitroglycerin 0.4 mg SUBLINGUAL Q5M PRN 06/25/16 [History Last Taken Unknown] lovastatin 40 mg PO QHS 03/20/17 [History Last Taken 07/14/18] metoprolol succinate 50 mg PO QHS 03/20/17 [History Last Taken 07/14/18] aspirin 325 mg tablet 325 mg PO DAILY 07/07/18 [History Last Taken 07/15/18] ipratropium 20 mcg-albuterol 100 mcg/actuation mist for inhalation 1 puff INHALATION 4X/DAY #4 g 08/19/18 [Rx Last Taken Unknown] Allergy/AdvReac Type Severity Reaction Status Date / Time No Known Allergies Allergy Verified 09/18/18 10:11 Family History Mother Heart disease Myocardial infarction CHF (congestive heart failure) Father Myocardial infarction Heart disease Brother Heart disease Myocardial infarction Brother Heart disease Myocardial infarction Daughter Heart murmur Surgical History Abnormal colonoscopy Encounter for fitting or adjustment of device Encounter for removal of vascular catheter H/O heart artery stent S/P colonoscopic polypectomy Status post laparoscopic colectomy Stented coronary artery Social History number of children: 6 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, 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 current occupation: [employer] current occupational exposures/hazards: Yes ([employer]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) Smoking Status: Former smoker quit date: 06/24/16 how long ago did patient quit smokin, 1.5ppd second hand exposure: Yes (SPOUSE SMOKES IN THE HOME) substance use type: does not use what type of physical activity do you participate in: none seatbelt use: always ROS Constitutional Constitutional: Reports malaise; Denies anorexia, chills, fever(s) or weakness Cardiovascular Cardiovascular: Denies chest pain, edema or palpitations Respiratory/Chest Respiratory/Chest: Reports cough, portable oxygen @ home, productive cough, shortness of breath at rest, shortness of breath with exertion and wheezing Gastrointestinal Gastrointestinal: Denies abdominal pain, constipation, diarrhea, nausea or vomiting Genitourinary Genitourinary: Denies dysuria Musculoskeletal Musculoskeletal: Denies back pain, extremity pain, joint pain or joint stiffness Integumentary Integumentary: Denies dry skin Neurologic Neurologic: Denies abnormal gait, abnormal speech, confusion, dizziness or focal weakness Psychiatric Psychiatric: Denies anxiety or depression Endocrine Endocrinology: Denies change in body appearance Hematologic/Lymphatic Hematologic/Lymphatic: Denies easy bleeding or easy bruising Vital Signs Vital Signs Vital Signs: 06/19/21 16:14 06/19/21 16:16 06/19/21 16:42 Temperature 96.8 F L Temperature Source Temporal Pulse Rate 101 H 93 Respiratory Rate 30 H 25 H 18 Respiratory Effort Short of Breath Respiratory Depth Shallow Respiratory Pattern Irregular Blood Pressure 146/82 H Blood Pressure Mean 103 Pulse Ox 75 90 90 Oxygen Delivery Method Room Air Nasal Cannula Nasal Cannula Oxygen Flow Rate (L/min) 4 5 06/19/21 18:25 06/19/21 19:00 06/19/21 19:53 Temperature 97.8 F 98.9 F Temperature Source Temporal Temporal Pulse Rate 102 H 98 98 Respiratory Rate 21 H 23 H 23 H Respiratory Effort Respiratory Depth Respiratory Pattern Blood Pressure 120/73 125/71 H 125/71 H Blood Pressure Mean 88 89 89 Pulse Ox 89 89 89 Oxygen Delivery Method Nasal Cannula Nasal Cannula Nasal Cannula Oxygen Flow Rate (L/min) 6 6 6 06/19/21 20:00 06/19/21 21:11 06/19/21 21:12 Temperature 98.9 F 97.8 F 97.8 F Temperature Source Temporal Temporal Temporal Pulse Rate 87 83 Respiratory Rate 16 23 H Respiratory Effort Respiratory Depth Respiratory Pattern Blood Pressure 128/78 H 129/87 H Blood Pressure Mean 94 101 Pulse Ox 89 89 Oxygen Delivery Method Nasal Cannula Nasal Cannula Oxygen Flow Rate (L/min) 6 6 Weight Weight: 246 lb Body Mass Index (BMI) 37.4 Physical Exam Const alert, oriented x3 and no apparent distress General Appearance: cooperative HEENT normocephalic and head/scalp atraumatic Eyes conjunctivae normal and no scleral icterus Neck supple and no JVD General: trachea midline Resp normal respiratory effort Effort and Inspection: tachypneic Auscultation: wheezes throughout Cardio regular rate, regular rhythm, S1 normal heart sound, S2 normal heart sound and peripheral pulses 2+ throughout GI normal to inspection, nondistended, normoactive bowel sounds, soft to palpation and non-tender Extremity normal capillary refill and no clubbing, cyanosis or edema General Extremity: no tenderness to palpation of joints or extremities Skin General Skin Exam: no breakdown and turgor normal Lesions: no lesions Rashes: no rashes Neuro no focal motor deficits and no sensory deficits noted Speech: speech normal Motor Exam: Negative for general weakness Psych thought process normal, cooperative and affect normal Appearance: appropriate Results Lab / Micro Data Result Diagrams: 06/19/21 16:25 06/19/21 16:25 Labs: Laboratory Results - last 24 hr 06/19/21 16:25: WBC 5.8, RBC 4.82, Hgb 16.2, Hct 48.1, MCV 99.8 H, MCH 33.6 H, MCHC 33.7, RDW Std Deviation 46.5 H, RDW Coeff of [place] 12.4, Plt Count 151, MPV 10.1, Immature Gran % (Auto) 0.700, Neut % (Auto) 73.8 H, Lymph % (Auto) 17.9 L, [place] % (Auto) 5.0, Eos % (Auto) 2.4, Baso % (Auto) 0.2, Absolute Neuts (auto) 4.2, Absolute Lymphs (auto) 1.03, Nucleated RBC % 0 06/19/21 16:25: Sodium 136, Potassium 4.1, Chloride 100, Carbon Dioxide 32.0, Anion Gap 4 L, BUN 28 H, Creatinine 0.94, Estim Creat Clear Calc 73.78, Est GFR (MDRD) Af Amer 102, Est GFR (MDRD) Non-Af 85, BUN/Creatinine Ratio 29.7 H, Glucose 104, Calcium 8.5, Total Bilirubin 0.50, AST 45 H, ALT 23, Alkaline Phosphatase 69, Troponin I High Sens 15, Total Protein 7.7, Albumin 2.7 L, Globulin 5.0 H, Albumin/Globulin Ratio 0.5 L 06/19/21 16:25: Procalcitonin 0.16 H 06/19/21 17:34: PT 12.7, INR 1.0, APTT 28.6 06/19/21 17:34: Lactic Acid 1.0 06/19/21 17:57: COVID-19 ([place]) Not Detected 06/19/21 19:50: Urine Color Yellow, Urine Clarity Clear, Urine pH 6.5, Ur Specific [place] 1.010, Urine Protein 30 H, Urine Glucose (UA) Normal, Urine Ketones 50 H, Urine Occult Blood 10 H, Urine Nitrite Negative, Urine Bilirubin Negative, Urine Urobilinogen 8 H, Ur Leukocyte Esterase 25 H, Urine RBC 0-5 SEEN, Urine WBC 0-5 SEEN, Ur Squamous Epith Cells 0 SEEN, Urine Bacteria 1+, Urine Mucus 0 SEEN Micro: Microbiology 06/19/21 16:25 Nasal Secretion SARS-CoV-2 Antigen (Rapid) - Final Radiology Impression Chest X-Ray 06/19/21 16:50 IMPRESSION: Right upper lobe pneumonia. Electronically Signed: Dutch Xiong MD at 17:05 EDT Tel , Service support , Chest CTA 06/19/21 19:22 IMPRESSION: No demonstrated PE, or thoracic aortic aneurysm or dissection. However, the contrast bolus within the pulmonary arteries is not optimal Calcified coronary vessels Diffuse interstitial and airspace opacifications in both lung pal more advanced in the right lung than the left. Findings suggest Covid pneumonia. Degenerative bony changes Borderline enlarged mediastinal and perihilar lymph nodes Electronically Signed: Salvador Linn MD at 20:28 EDT , Service support , Assessment & Plan Assessment/Plan (1) Right upper lobe pneumonia: QUALIFIERS: Pneumonia type: due to unspecified organism Qualified Code(s): J18.9 - Pneumonia, unspecified organism PLAN: 1. Right upper lobe pneumonia -Admit to [facility] [place] -Patient rapid antigen Covid and PCR Covid negative, respiratory panel ordered. -Despite PCR and rapid antigen being negative per physician discretion patient will remain in Covid isolation, receive p.o. Decadron, and twice daily Lovenox. -Will treat patient with antibiotics pending respiratory panel -Sputum culture ordered -Pep therapy ordered -O2 per protocol -Scheduled DuoNeb nebulizer treatments ordered along with as needed albuterol nebulizers -Encourage incentive spirometry -PT and OT to eval and treat -CBC and BMP ordered daily, mag level stat 2. COPD -Patient states that he is typically on 3 L nasal cannula at baseline, has increased to 5 L which is the maximum his concentrator will allow at home and was continuing to run in the mid 80's oxygen saturation on 5 L. 3. Hypertension -Continue home medication regimen including lisinopril and metoprolol -Vital signs currently stable DVT prophylaxis-Lovenox subcu This patient was seen by NICOLE MossC under the supervision of Dr. Caldwell. Documented by User: Dr. Roberto Caldwell MD 06/19/21 22:50 HPI - General General Date of Admission: 06/19/21 [facility] Medical History (Updated 06/19/21 @ 22:[address] Roberto Caldwell MD) Abdominal pain Acute myocardial infarction Atherosclerotic heart disease of [place] coronary artery without angina pectoris Benign neoplasm Cancer of skin of left ear Chronic hypoxemic respiratory failure Colon cancer COPD (chronic obstructive pulmonary disease) Diverticulitis of colon (without mention of hemorrhage) Dyspnea Former smoker Hernia Hyperlipidemia Hyperlipidemia, mixed Hypertension Impaired glucose tolerance Malignant neoplasm of colon Patent foramen ovale Pneumonia, organism unspecified Ruptured appendix Home Medications clopidogrel 75 mg PO DAILY 06/25/16 [History Last Taken 07/15/18] lisinopril 5 mg PO QHS 06/25/16 [History Last Taken 07/14/18] nitroglycerin 0.4 mg SUBLINGUAL Q5M PRN 06/25/16 [History Last Taken Unknown] lovastatin 40 mg PO QHS 03/20/17 [History Last Taken 07/14/18] metoprolol succinate 50 mg PO QHS 03/20/17 [History Last Taken 07/14/18] aspirin 325 mg tablet 325 mg PO DAILY 07/07/18 [History Last Taken 07/15/18] ipratropium 20 mcg-albuterol 100 mcg/actuation mist for inhalation 1 puff INHALATION 4X/DAY #4 g 08/19/18 [Rx Last Taken Unknown] Allergy/AdvReac Type Severity Reaction Status Date / Time No Known Allergies Allergy Verified 09/18/18 10:11 Family History Mother Heart disease Myocardial infarction CHF (congestive heart failure) Father Myocardial infarction Heart disease Brother Heart disease Myocardial infarction Brother Heart disease Myocardial infarction Daughter Heart murmur Surgical History Abnormal colonoscopy Encounter for fitting or adjustment of device Encounter for removal of vascular catheter H/O heart artery stent S/P colonoscopic polypectomy Status post laparoscopic colectomy Stented coronary artery Social History number of children: 6 current occupational status: other details: [employer] 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 current occupation: [employer] current occupational exposures/hazards: Yes ([employer]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 I agree with assessment and plan by NICOLE MossC In summary patient is a 65-year-old male with a significant history of COPD and heart disease who presents emergency department with confusion; productive cough; poor appetite and subjective fever. He denies chills. He denies anosmia. He denies dysgeusia. Patient is unsure about the onset of his symptoms but he thinks that his symptoms might have started more than 10 days ago. Patient reports chronic shortness of breath and is noting that his shortness of breath is any different from usual. He is on home oxygen of 3 L but he does not use ordered time. Reportedly at home his oxygen saturation was in the 70s on room air. Reportedly typically his oxygen saturation with or without oxygen is in the mid to upper 80s. At the emergency department he was placed on 6 L and his oxygen saturation was between 89 to 90%. Physical exam: General: Well-nourished, well-developed. Head: Normocephalic, atraumatic, no tenderness Eyes: PERRLA, EOMI ENT, no trauma, moist mucous membranes, no rhinorrhea Neck: Nontender, full range of motion, no spinal tenderness, deformities, step-off CVS: Regular rate and rhythm Respiratory Wheezes, no chest wall nontender Abdomen: Soft, nontender, nondistended, normal bowel sounds, no masses : Deferred Back: Nontender, no CVA tenderness, no midline spinal tenderness, deformities, step-offs Extremities: Nontender full range of motion, no trauma Skin: Normal color, no trauma, abrasions Neuro: Alert, oriented, cranial nerves II through XII grossly intact. Psychiatry: Normal mood. Normal affect. Not depressed. Not anxious. Acute on chronic respiratory failure Patient required supplemental oxygen of 6 L at emergent department. Continue oxygen supplementation. Radiologist impression of chest x-ray: Right upper lobe pneumonia. Actual chest x-ray image was independently interpreted and I agree with radiologist interpretation Radiologist impression of chest CT chest CTA: Diiffuse interstitial and airspace opacities in both lung pal more advanced in the right lung than the left. Radiologist findings suggest Covid pneumonia. Actual chest CT was independently reviewed and I agree with radiologist interpretation. We will check a procalcitonin and comprehensive respiratory pathogen panel. Review of ED records show that Covid antigen and Covid PCR was negative. At this point it is inconclusive on whether patient has Covid. Decadron ordered. Outside window for remdesivir. Continue [id number] breathing treatments. Hypertension Blood pressure is not within goal Home blood pressure medication continued. Trend blood pressure and adjust blood pressure medications. DVT prophylaxis: Subcutaneous Lovenox ordered. Visit Charges Inpatient E&M: 25442 Init Hosp L3
[2021-06-19 22:30] LABS: Magnesium 2.7 mg/dL (1.6-2.6)
[2021-06-20] VITALS (12 sets, daily range): BP systolic 110–140; BP diastolic 61–83; PULSE 71–82; RESP 17–82; TEMP 36.6–37; O2SAT 87–96
[2021-06-20] MEDS: Lisinopril 5 MG Tablet PO ×2 (00:05→22:21)
[2021-06-20] MEDS: Aspirin 325 MG Tablet PO ×2 (00:05→22:21)
[2021-06-20] MEDS: Metoprolol(XL)Succ 50 MG Tablet PO ×2 (00:06→22:21)
[2021-06-20] MEDS: Clopidogrel Bisulfate 75 MG Tablet PO ×2 (00:06→22:22)
[2021-06-20 07:26] LABS: Absolute Lymphocyte Count 0.44 X10^3/uL (0.83-4.51); Hematocrit 45.2 % (40-54); Hemoglobin 15.2 g/dL (13.0-16.5); Lymphocyte # 0.44 X10^3/ul (0.83-4.51); Lymphocyte % 9.6 % (19-41); Mean Corp Hgb Conc 33.6 g/dL (32-36); Mean Corpuscular Hgb 33.9 pg (27.0-32.0); Mean Corpuscular Volume 100.9 fL (80-94); Mean Platelet Vol. 10.4 fl (6.2-12.0); Monocyte# 0.09 X10^3/uL; NRBC Flagged by Analyzer 0 % (0-5); Neutrophil # 3.98 X10^3/uL (2.7-7.7); Neutrophil % 87.3 % (47-70); POSITIVE DIFFERENTIAL YES; Platelet Count 144 K/mm3 (150-450); RBC Distribution Width CV 12.3 % (11.6-14.6); RBC Distribution Width SD 46.1 fl (35.1-43.9); Red Blood Count 4.48 M/mm3 (4.6-6.2); White Blood Count 4.6 K/mm3 (4.4-11.0)
[2021-06-20 07:34] LABS: Differential Indicated SCAN CRITERIA MET
[2021-06-20] MEDS: Ipratropium/Albuterol Sulfate 3 ML AMPUL.NEB INHALATION ×4 (07:36→19:32)
[2021-06-20 08:01] LABS: Anion Gap 6 (5-15); BUN 24 mg/dL (7-18); BUN/Creat Ratio 30.9 RATIO (10-20); Calcium,Total 8.6 mg/dL (8.5-10.1); Chloride 101 mmol/L (98-107); Creatinine, Serum 0.78 mg/dL (0.70-1.30); EST Glomerular Filtration Rate 106 mL/min (>60); Est Glom Filt Rate - Afr Amer 128 mL/min (>60); Estimated Creatinine Clearance 69.35 ml/min; Glucose 145 mg/dL (74-106); Potassium 4.7 mmol/L (3.5-5.1); Sodium Level 136 mmol/L (136-145)
[2021-06-20 08:22] LABS: Platelet Estimate SLT DEC (ADEQ); Red Cell Morphology NORM C+C NORMAL (NORM C&C)
[2021-06-20] MEDS: Enoxaparin 30 MG/0.3 ML Syringe SC ×2 (11:09→22:27)
[2021-06-20] MEDS: dexAMETHasone 4 MG Tablet 6 MG PO (11:09)
[2021-06-20] MEDS: Azithromycin 250 MG Tablet 500 MG PO (11:10)
--- NOTE | 2021-06-20 14:59 | PCM.PN.HOSP ---
Subjective Subjective Decreased sats despite 6 liters NC. Placed on BiPAP, but did not tolerate, so switched over to Airvo. Objective Data Objective Data Vital Signs: Vital Signs Temp Pulse Resp BP Pulse Ox 36.7 C 79 20 H 140/83 H 96 06/20/21 10:00 06/20/21 11:41 06/20/21 11:41 06/20/21 10:00 06/20/21 10:00 Oxygen Flow Rate (L/min) 6 Oxygen Delivery Method Airvo Weight: 105.233 kg Body Mass Index (BMI) 35.2 Intake & Output: Intake and Output for Last 24 Hours 06/18/21 06/19/21 06/20/21 23:59 23:59 23:59 Intake Total 500 / 700 550 / 550 Output Total 450 / 450 Balance 500 / 450 100 / 100 Lab / Micro Data Result Diagrams: 06/20/21 06:30 06/20/21 06:30 Labs: Laboratory Results - last 24 hr 06/19/21 16:25: WBC 5.8, RBC 4.82, Hgb 16.2, Hct 48.1, MCV 99.8 H, MCH 33.6 H, MCHC 33.7, RDW Std Deviation 46.5 H, RDW Coeff of [place] 12.4, Plt Count 151, MPV 10.1, Immature Gran % (Auto) 0.700, Neut % (Auto) 73.8 H, Lymph % (Auto) 17.9 L, [place] % (Auto) 5.0, Eos % (Auto) 2.4, Baso % (Auto) 0.2, Absolute Neuts (auto) 4.2, Absolute Lymphs (auto) 1.03, Nucleated RBC % 0 06/19/21 16:25: Sodium 136, Potassium 4.1, Chloride 100, Carbon Dioxide 32.0, Anion Gap 4 L, BUN 28 H, Creatinine 0.94, Estim Creat Clear Calc 73.78, Est GFR (MDRD) Af Amer 102, Est GFR (MDRD) Non-Af 85, BUN/Creatinine Ratio 29.7 H, Glucose 104, Calcium 8.5, Total Bilirubin 0.50, AST 45 H, ALT 23, Alkaline Phosphatase 69, Troponin I High Sens 15, Total Protein 7.7, Albumin 2.7 L, Globulin 5.0 H, Albumin/Globulin Ratio 0.5 L 06/19/21 16:25: Procalcitonin 0.16 H 06/19/21 16:25: Magnesium 2.7 H 06/19/21 17:34: PT 12.7, INR 1.0, APTT 28.6 06/19/21 17:34: Lactic Acid 1.0 06/19/21 17:57: COVID-19 ([place]) Not Detected 06/19/21 19:50: Urine Color Yellow, Urine Clarity Clear, Urine pH 6.5, Ur Specific [place] 1.010, Urine Protein 30 H, Urine Glucose (UA) Normal, Urine Ketones 50 H, Urine Occult Blood 10 H, Urine Nitrite Negative, Urine Bilirubin Negative, Urine Urobilinogen 8 H, Ur Leukocyte Esterase 25 H, Urine RBC 0-5 SEEN, Urine WBC 0-5 SEEN, Ur Squamous Epith Cells 0 SEEN, Urine Bacteria 1+, Urine Mucus 0 SEEN 06/20/21 06:30: WBC 4.6, RBC 4.48 L, Hgb 15.2, Hct 45.2, MCV 100.9 H, MCH 33.9 H, MCHC 33.6, RDW Std Deviation 46.1 H, RDW Coeff of [place] 12.3, Plt Count 144 L, MPV 10.4, Immature Gran % (Auto) 1.100 H, Neut % (Auto) 87.3 H, Lymph % (Auto) 9.6 L, [place] % (Auto) 2.0, Eos % (Auto) 0.0, Baso % (Auto) 0.0, Absolute Neuts (auto) 4.0, Absolute Lymphs (auto) 0.44 L, Nucleated RBC % 0, Differential Comment , Platelet Estimate SLT DEC, RBC Morphology NORM C+C 06/20/21 06:30: Sodium 136, Potassium 4.7, Chloride 101, Carbon Dioxide 29.0, Anion Gap 6, BUN 24 H, Creatinine 0.78, Estim Creat Clear Calc 69.35, Est GFR (MDRD) Af Amer 128, Est GFR (MDRD) Non-Af 106, BUN/Creatinine Ratio 30.9 H, Glucose 145 H, Calcium 8.6 Micro: Microbiology 06/20/21 03:45 Sputum, Expectorated/Coughed Gram Stain - Final 06/20/21 00:32 Mucosa - Nasopharyngeal Respiratory Panel (PCR) - Final 06/19/21 23:55 Urine, Clean Catch Legionella Antigen - Final 06/19/21 23:55 Urine, Clean Catch Streptococcus pneumoniae Antigen (M - Final 06/19/21 16:25 Nasal Secretion SARS-CoV-2 Antigen (Rapid) - Final Radiography Diagnostic Testing: Radiology Impression Chest X-Ray 06/19/21 16:50 IMPRESSION: Right upper lobe pneumonia. Electronically Signed: Dutch Xiong MD at 17:05 EDT Tel , Service support , Chest CTA 06/19/21 19:22 IMPRESSION: No demonstrated PE, or thoracic aortic aneurysm or dissection. However, the contrast bolus within the pulmonary arteries is not optimal Calcified coronary vessels Diffuse interstitial and airspace opacifications in both lung pal more advanced in the right lung than the left. Findings suggest Covid pneumonia. Degenerative bony changes Borderline enlarged mediastinal and perihilar lymph nodes Electronically Signed: Salvador Linn MD at 20:28 EDT , Service support , Physical Exam Const alert Resp Auscultation: wheezes Cardio regular rate, regular rhythm, S1 normal heart sound and S2 normal heart sound GI normal to inspection, nondistended, normoactive bowel sounds, soft to palpation and non-distended Extremity normal to inspection Assessment & Plan Assessment/Plan (1) Acute respiratory failure: QUALIFIERS: Respiratory failure complication: hypoxia Qualified Code(s): J96.01 - Acute respiratory failure with hypoxia PLAN: 1. Suspected pneumococcal pneumonia Strep and legionella antigens negative Patient rapid antigen Covid and PCR Covid negative, respiratory panel negative. DC COVID isolation Sputum culture ordered Pep therapy ordered O2 per protocol Scheduled DuoNeb nebulizer treatments ordered along with as needed albuterol nebulizers Encourage incentive spirometry Continue azithromycin and CTX 2. AECOPD Continue BDs. Change steroids to methylpred 3. Acute hypoxic respiratory failure 2/2 pneumonia and AECOPD On Airvo, wean oxygen as tolerated Patient states that he is typically on 3 L nasal cannula at baseline, has increased to 5 L which is the maximum his concentrator will allow at home and was continuing to run in the mid 80's oxygen saturation on 5 L. 4. Hypertension Continue home medication regimen including lisinopril and metoprolol Vital signs currently stable 5. DVT prophylaxis-Lovenox subcu Charges/Coding Visit Charges Inpatient E&M: 24647 Subs Hosp L2
--- NOTE | 2021-06-20 15:20 | CASEMGMT ---
Addendum entered by Mile Delong 06/20/21 15:47: TC to [facility] who states pt is in their system but does not have an order for portable O2. Rep stated patient has most likely acquired the O2 concentrator from the previous company, but they have not provided pt with with any services. Original Note: LIV ANDRES Assessment: Face to Face with pt for initial transition planning/care coordination assessment. LIV ANDRES introduced self and role at [facility], pt voices understanding and consents to assessment. Pt is A/O x4 and answers all questions appropriately at this time. Pt sitting up in bed in no distress with airvo on. Care providers, pharmacy, and demographics verified/updated. Admitting Dx: acute exac of COPD [facility] Specialists: Pt states I don't have any anymore. Pt has previously had multiple specialists and states they all want to put him on O2 but that is not his problem. [facility]erred [facility]acy: [facility] Insurance: [facility] Prescription Benefit: yes LW/HPOA: Pt denies and denies the need for info on AD. LNOK: Nhi Sanchez, ; Josef Sanchez, brother; Manoj Candelario, son Living Arrangements: Pt lives with and son in a two story house with 3 steps to enter. He states he stays on the main level. Pt states he has difficulty in completing ADL's and tries to help him. States his difficulty is due to bilat knees that need replaced, but he is not a candidate. Transportation: Pt drove prior to hospitalization but states he does not think he will be able to after this hospitalization. DME/HHC/SNF: Pt has an O2 concentrator that he acquired when his former company [employer] went out of business. Pt states he does have portable tanks at home but does not use and they are old. Pt also has an electric scooter. He denies hx of HHC or SNF stays. Discussed with patient that if he dc's he will possibly need portable tanks. Pt states he is not going to use it. He states he does not want set up with another company for his O2. He then proceeded to question the portable unit of O2 he saw on tv. Made him aware this [facility]IV ANDRES could set him up with a company and they would come out to evaluate him for this. Pt denied this again. Pt states he wears 3L at home but not very often. He states he doesn't feel any different whether he has the O2 on or not. Attempted to provide education regarding O2 but patient was disinterested. RN CM to check back with patient tomorrow as he was asked to think about having an O2 company on hand for any needs he may have. Notified of patient stating he will not wear O2 home and does not want it set up. Pt states no concerns with going home at time of dc. Pt states no further concerns/needs. CM to follow. Advised pt to ask CM if any further question/concerns/needs arise, voices understanding. Pt Goal: Home Plan: Home
--- NOTE | 2021-06-20 19:46 | CPS ---
Pulled BIPAP machine, pt says he will before being put on the BIPAP machine. Pt is currently on Airvo & tolerating well.
[2021-06-20] MEDS: 0.9% Saline Lock 10 ML Syringe IV ×2 (22:17)
[2021-06-20] MEDS: Atorvastatin Calcium 10 MG Tablet PO (22:22)
--- NOTE | 2021-06-20 22:51 | PCS.PANDOC ---
PANDEMIC DOCUMENTATION INITIATED: Date: 06/04/2021 Time: 190
[2021-06-21] VITALS (16 sets, daily range): BP systolic 106–139; BP diastolic 64–92; PULSE 67–87; RESP 18–22; TEMP 36.6–36.9; O2SAT 91–95
[2021-06-21] MEDS: Ipratropium/Albuterol Sulfate 3 ML AMPUL.NEB INHALATION ×6 (00:06→22:21)
[2021-06-21] MEDS: 0.9% Saline Lock 10 ML Syringe IV ×3 (05:12→20:59)
[2021-06-21 07:03] LABS: Absolute Lymphocyte Count 0.66 X10^3/uL (0.83-4.51); Absolute Neutrophil Count 6.8 X10^3/uL (2.0-7.7); Basophil# 0.01 X10^3/uL; Basophil% 0.1 % (0-1); Hematocrit 45.6 % (40-54); Hemoglobin 15.2 g/dL (13.0-16.5); Lymphocyte # 0.66 X10^3/ul (0.83-4.51); Lymphocyte % 8.4 % (19-41); Mean Corp Hgb Conc 33.3 g/dL (32-36); Mean Corpuscular Hgb 33.9 pg (27.0-32.0); Mean Corpuscular Volume 101.6 fL (80-94); Mean Platelet Vol. 10.2 fl (6.2-12.0); Monocyte# 0.33 X10^3/uL; Monocyte% 4.2 % (0-10); NRBC Flagged by Analyzer 0 % (0-5); Neutrophil # 6.82 X10^3/uL (2.7-7.7); Neutrophil % 86.4 % (47-70); Platelet Count 190 K/mm3 (150-450); RBC Distribution Width CV 12.2 % (11.6-14.6); Red Blood Count 4.49 M/mm3 (4.6-6.2); White Blood Count 7.9 K/mm3 (4.4-11.0)
[2021-06-21 07:30] LABS: ALB/GLOB Ratio 0.6 RATIO (0.9-2.4); AST(SGOT) 27 U/L (15-37); Alanine Aminotransfer ALT/SGPT 21 U/L (16-61); Albumin, Serum 2.5 g/dL (3.2-5.0); Alkaline Phosphatase 63 U/L (45-117); Anion Gap 5 (5-15); BUN 26 mg/dL (7-18); BUN/Creat Ratio 29.9 RATIO (10-20); Calcium,Total 8.7 mg/dL (8.5-10.1); Chloride 102 mmol/L (98-107); Creatinine, Serum 0.87 mg/dL (0.70-1.30); EST Glomerular Filtration Rate 93 mL/min (>60); Est Glom Filt Rate - Afr Amer 112 mL/min (>60); Estimated Creatinine Clearance 79.71 ml/min; Globulin 4.5 g/dL (2.2-4.2); Glucose 148 mg/dL (74-106); Potassium 4.4 mmol/L (3.5-5.1); Sodium Level 137 mmol/L (136-145)
--- NOTE | 2021-06-21 09:06 | PN.HOSP_ITS ---
Subjective Subjective Feeling better. Was able to tolerate Airvo. Now weaned down to high-flow NC. Coughing, but non productive. Objective Data Objective Data Vital Signs: Vital Signs Temp Pulse Resp BP Pulse Ox 36.6 C 78 20 H 116/64 93 06/21/21 05:20 06/21/21 08:15 06/21/21 08:15 06/21/21 05:20 06/21/21 08:15 Oxygen Flow Rate (L/min) 11 Oxygen Delivery Method Nasal Cannula Weight: 105.2 kg Body Mass Index (BMI) 35.2 Intake & Output: Intake and Output for Last 24 Hours 06/19/21 06/20/21 06/21/21 23:59 23:59 23:59 Intake Total 500 / 700 1510 / 1510 100 / 100 Output Total 1000 / 1000 200 / 200 Balance 500 / 450 510 / 510 -100 / -100 Lab / Micro Data Result Diagrams: 06/21/21 06:40 06/21/21 06:40 Labs: Laboratory Results - last 24 hr 06/21/21 06:40: WBC 7.9, RBC 4.49 L, Hgb 15.2, Hct 45.6, MCV 101.6 H, MCH 33.9 H , MCHC 33.3, RDW Std Deviation 46.0 H, RDW Coeff of [place]aley 12.2, Plt Count 190, MPV 10.2, Immature Gran % (Auto) 0.900, Neut % (Auto) 86.4 H, Lymph % (Auto) 8.4 L, [place] % (Auto) 4.2, Eos % (Auto) 0.0, Baso % (Auto) 0.1, Absolute Neuts (auto) 6.8, Absolute Lymphs (auto) 0.66 L, Nucleated RBC % 0 06/21/21 06:40: Sodium 137, Potassium 4.4, Chloride 102, Carbon Dioxide 30.0, Anion Gap 5, BUN 26 H, Creatinine 0.87, Estim Creat Clear Calc 79.71, Est GFR (MDRD) Af Amer 112, Est GFR (MDRD) Non-Af 93, BUN/Creatinine Ratio 29.9 H, Glucose 148 H, Calcium 8.7, Total Bilirubin 0.30, AST 27, ALT 21, Alkaline Phosphatase 63, Total Protein 7.0, Albumin 2.5 L, Globulin 4.5 H, Albumin/Globulin Ratio 0.6 L Micro: Microbiology 06/20/21 03:45 Sputum, Expectorated/Coughed Gram Stain - Final 06/20/21 00:32 Mucosa - Nasopharyngeal Respiratory Panel (PCR) - Final 06/19/21 23:55 Urine, Clean Catch Legionella Antigen - Final 06/19/21 23:55 Urine, Clean Catch Streptococcus pneumoniae Antigen (M - Final 06/19/21 16:25 Nasal Secretion SARS-CoV-2 Antigen (Rapid) - Final Physical Exam Const alert HEENT Head and Scalp: normocephalic Resp normal respiratory effort and no retractions Auscultation: crackles Cardio regular rate, regular rhythm, S1 normal heart sound and S2 normal heart sound GI normal to inspection, nondistended, normoactive bowel sounds, soft to palpation, non-tender and non-distended Extremity normal to inspection Assessment & Plan Assessment/Plan (1) Acute respiratory failure: QUALIFIERS: Respiratory failure complication: hypoxia Qualified Code(s): J96.01 - Acute respiratory failure with hypoxia (2) Right upper lobe pneumonia: QUALIFIERS: Pneumonia type: due to unspecified organism Qualified Code(s): J18.9 - Pneumonia, unspecified organism PLAN: 1. Suspected pneumococcal pneumonia Strep and legionella antigens negative Patient rapid antigen Covid and PCR Covid negative, respiratory panel negative. DC COVID isolation Sputum culture pending Pep therapy ordered O2 per protocol Scheduled DuoNeb nebulizer treatments ordered along with as needed albuterol nebulizers Encourage incentive spirometry Continue azithromycin and CTX Add Mucinex 2. AECOPD Continue BDs. Continue methylpred 3. Acute hypoxic respiratory failure 2/2 pneumonia and AECOPD On high-flow NC, wean oxygen as tolerated Patient states that he is typically on 3 L nasal cannula at baseline, has increa sed to 5 L which is the maximum his concentrator will allow at home and was continuing to run in the mid 80's oxygen saturation on 5 L. 4. Hypertension Continue home medication regimen including lisinopril and metoprolol Vital signs currently stable 5. DVT prophylaxis-Lovenox subcu Charges/Coding Visit Charges Inpatient E&M: 26258 Subs Hosp L2
[2021-06-21] MEDS: Enoxaparin 30 MG/0.3 ML Syringe SC ×2 (10:28→21:08)
[2021-06-21] MEDS: guaiFENesin 600 MG Tablet PO ×2 (10:28→21:00)
[2021-06-21] MEDS: Azithromycin 250 MG Tablet 500 MG PO (10:28)
--- NOTE | 2021-06-21 14:43 | CASEMGMT ---
Pt screened with [facility] Palliative Care Screening Tool due to strata 3, pt met criteria. Order obtained. TC to [facility], spoke with Amalia to make aware of referral.
[2021-06-21] MEDS: Aspirin 325 MG Tablet PO (20:59)
[2021-06-21] MEDS: Clopidogrel Bisulfate 75 MG Tablet PO (21:00)
[2021-06-21] MEDS: Atorvastatin Calcium 10 MG Tablet PO (21:08)
[2021-06-21] MEDS: Lisinopril 5 MG Tablet PO (21:12)
[2021-06-21] MEDS: Metoprolol(XL)Succ 50 MG Tablet PO (21:12)
[2021-06-22] VITALS (13 sets, daily range): BP systolic 111–146; BP diastolic 63–87; PULSE 66–94; RESP 16–20; TEMP 36.3–36.4; O2SAT 88–92
[2021-06-22] MEDS: Ipratropium/Albuterol Sulfate 3 ML AMPUL.NEB INHALATION ×5 (03:15→23:47)
[2021-06-22 05:46] LABS: Absolute Lymphocyte Count 0.82 X10^3/uL (0.83-4.51); Absolute Neutrophil Count 5.2 X10^3/uL (2.0-7.7); Basophil# 0.02 X10^3/uL; Basophil% 0.3 % (0-1); Hematocrit 44.1 % (40-54); Hemoglobin 14.5 g/dL (13.0-16.5); Lymphocyte # 0.82 X10^3/ul (0.83-4.51); Lymphocyte % 12.6 % (19-41); Mean Corp Hgb Conc 32.9 g/dL (32-36); Mean Corpuscular Hgb 33.7 pg (27.0-32.0); Mean Corpuscular Volume 102.6 fL (80-94); Mean Platelet Vol. 10.1 fl (6.2-12.0); Monocyte# 0.42 X10^3/uL; Monocyte% 6.4 % (0-10); NRBC Flagged by Analyzer 0 % (0-5); Neutrophil # 5.18 X10^3/uL (2.7-7.7); Neutrophil % 79.5 % (47-70); Platelet Count 188 K/mm3 (150-450); RBC Distribution Width CV 12.1 % (11.6-14.6); White Blood Count 6.5 K/mm3 (4.4-11.0)
[2021-06-22] MEDS: 0.9% Saline Lock 10 ML Syringe IV ×3 (05:55→22:12)
[2021-06-22 06:15] LABS: ALB/GLOB Ratio 0.6 RATIO (0.9-2.4); AST(SGOT) 28 U/L (15-37); Alanine Aminotransfer ALT/SGPT 23 U/L (16-61); Albumin, Serum 2.6 g/dL (3.2-5.0); Alkaline Phosphatase 61 U/L (45-117); Anion Gap 4 (5-15); BUN 26 mg/dL (7-18); BUN/Creat Ratio 32.3 RATIO (10-20); Calcium,Total 9.1 mg/dL (8.5-10.1); Chloride 103 mmol/L (98-107); Creatinine, Serum 0.81 mg/dL (0.70-1.30); EST Glomerular Filtration Rate 101 mL/min (>60); Est Glom Filt Rate - Afr Amer 123 mL/min (>60); Estimated Creatinine Clearance 85.62 ml/min; Globulin 4.2 g/dL (2.2-4.2); Glucose 134 mg/dL (74-106); Potassium 4.5 mmol/L (3.5-5.1); Protein, Total 6.8 g/dL (6.4-8.2); Sodium Level 140 mmol/L (136-145)
[2021-06-22] MEDS: Enoxaparin 30 MG/0.3 ML Syringe SC ×2 (10:02→22:08)
[2021-06-22] MEDS: Azithromycin 250 MG Tablet 500 MG PO (10:02)
[2021-06-22] MEDS: guaiFENesin 600 MG Tablet PO ×2 (10:02→22:08)
--- NOTE | 2021-06-22 10:30 | CASEMGMT ---
Social Work Note SW received referral for mental health, possibly depression. Pt is not wanting to discharge with oxygen if recommended. SW in to speak with pt. SW introduced self and role at [facility]. Pt is alert and orientated x3. Pt states that he has no history of mental health and denied any current substance abuse/use. Pt states that he used to smoke cigarettes but states he doesn't currently smoke. Pt states that he has a supportive family, states that he has a and son at home. Pt states that he has six children total. Pt states it's been hard having to rely on people now. Pt states he was previously independent but is now requiring assistance. SW offered support to pt, states that it can be difficult to have to rely on people when they were previously independent. Pt states he has a history of having difficulty breathing, states that he was told that everyone has a flap on their heart and his doesn't close so that is why he has difficulty breathing. Pt states he used to see a cosmetic dentist but states they couldn't fix his heart, put him on oxygen, so he doens't see one again. Pt states he has needed lots of different surgeries but was told that he was too risky for the surgeries. Pt states I don't think it's the doctors not allowing me to have the surgeries, its the anesthesiologist. Pt states I am too risky to operate on. Pt states I also need knee surgery and they won't do that either. SW offered support to pt. Pt states he has seen many specialists but do not follow with any currently. SW spoke with pt about how frustrating it can be being told he needs to have these surgeries but not being able to have them. SW validated pt's feelings, offered support to pt. SW spoke with pt about his oxygen. Pt states my stats are the same here as they are when I am at home. Pt states I feel better, but my oxygen feels about the same. Pt states he wears 3 Liters of oxygen at home, states that he primarily wears it at night, sometimes during the day. Pt states he does just sit around at home though and watches TV/Sports, doesn't do much activities. SW spoke with pt about how that could also be affecting his breathing/lungs. Pt states he is aware it could be affecting his breathing/lungs. Pt states my knees just hurt so bad at home. Pt does state his knees are feeling better since being at [facility]. Pt states that he does see his PCP Dr. Neel hendrickson and he manages all of his medications for him. Pt states he gets his breathing medications through his PCP. Pt denied any history of suicidal thoughts/plans/ideations. Pt denied any current suicidal thoughts/plans/ideations. SW spoke with pt about pt having to return home with oxygen. Pt states he doens't want to . SW explained then that he will need to really reconsider physician's recommendations even if those recommendations include going home with oxygen. SW informed pt that RN CM will follow along for home going oxygen needs, but encouraged pt to really consider going home with oxygen if recommended. Pt states understanding. Jane Kelley CERTIFIED [employer] TECHNICIAN, DESKTOP SUPPORT TECHNICIAN
--- NOTE | 2021-06-22 11:49 | CASEMGMT ---
LIV CM in to pt room to discuss O2 again. Also pt is using a FWW with therapy. Pt states he has a FWW at home and will have his son bring in. Asked pt if he can call his son now to see if he can bring in. Pt states he cannot as he is at work. Discussed with pt the need for O2 and if it is greater than 5L (as his concentrator only goes up to 5L per his report) that he will need set up with a DME company. Provided pt with list of local in network DME companies. Pt chose [employer] with reluctance. Pt states he does not know if he will go home with the O2 as he states it does not do any good. Green sheet on chart for script for FWW if son cannot find his as it was loaned from a friend. Also [id number] on chart as well. Pt denies further needs.
--- NOTE | 2021-06-22 12:36 | PCM.CONS.P ---
Assessment & Plan Assessment/Plan (1) Dyspnea: QUALIFIERS: Dyspnea type: dyspnea on exertion Qualified Code(s): R06.09 - Other forms of dyspnea (2) Debility: (3) Acute and chronic respiratory failure with hypoxia: (4) Right upper lobe pneumonia: QUALIFIERS: Pneumonia type: due to unspecified organism Qualified Code(s): J18.9 - Pneumonia, unspecified organism (5) Atherosclerotic heart disease of [place] coronary artery without angina pectoris: QUALIFIERS: [place] vs. 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: (9) Former smoker: (10) Hyperlipidemia: QUALIFIERS: Hyperlipidemia type: pure hypercholesterolemia Qualified Code(s): E78.00 - Pure hypercholesterolemia, unspecified; E78.0 - Pure hypercholesterolemia (11) Hypertension: QUALIFIERS: Hypertension type: essential hypertension Qualified Code(s): I10 - Essential (primary) hypertension (12) COPD (chronic obstructive pulmonary disease): QUALIFIERS: COPD type: emphysema Emphysema type: centrilobular Qualified Code(s): J43.2 - Centrilobular emphysema (13) Obesity: QUALIFIERS: Obesity type: due to excess calories Obesity severity: non-morbid Qualified Code(s): E66.09 - Other obesity due to excess calories (14) Colon cancer: QUALIFIERS: Colon location: unspecified part of colon Qualified Code(s): C18.9 - Malignant neoplasm of colon, unspecified PLAN: 65-year-old male with chronic hypoxemic respiratory failure, COPD, seen today for palliative consultation for symptom management of shortness of breath and decrease in ability to perform ADLs. 1. Dyspnea: Patient does have PFO. He has been reluctant to wear oxygen in the past, used to follow with pulmonary several years ago but canceled all further appointments. He does have an oxygen concentrator at home but does not routinely use. Not currently a candidate for opioids, he is not compliant with current recommendations for oxygen supplementation and inhalers. 2. Debility and weakness: Multifactorial, he does very little activity at home secondary to his breathing, however denies any significant issues with his lungs. He states if his heart would just get fixed, he would be fine. 3. Chronic hypoxemic respiratory failure/former smoker/HLD/HTN/obesity/history of colon cancer/PFO/squamous cell carcinoma of left ear: Complicates overall care, management, recovery, and prognosis. Patient seems to be unrealistic with expectations regarding his breathing and oxygenation. He is reluctant to receive any education regarding his lung and heart disease. We did discuss his PFO, history of smoking, activity intolerance, and palliative services. We would be happy to follow with him as an outpatient, however he declined services at this time. I did give him our contact information in case he would decide he is interested in services. Thank you for the opportunity to participate in this patient's care, please do not hesitate to contact [facility] with any further questions or concerns. Palliative direct line is [phone]. Patient has declined services. He does state that if it is towards his end-of-life, he wants to at home alone and does not want any help. He gets agitated when the word hospice is brought up. Greater than 50% of F2F visit dedicated to education and counseling of palliative care services, medications, comorbid conditions and potential assistance with management, and plan of care moving forward. Start time: 1230 End time: 1335 HPI Consult Data Date of Consult: 06/22/21 HPI Narrative HPI Narrative: GABRIEL BENJAMIN, is a 65 M who presented to [facility]21 with complaints of increased shortness of breath over the course of 5 days. He had body aches and chills as well as increased productive cough. Patient has had Covid vaccinations. He is ordered 3 L at night at home (was not wearing) but had been requiring 5 L, his concentrator only goes up to 5 L. He was saturating 80-85%. Work-up in ED showed chest x-ray of right upper lobe pneumonia. Chest CTA was negative for PE, showed diffuse interstitial airspace opacifications of both pal, R>L and suggested COVID pneumonia. He was admitted for further evaluation and management. Started on bronchodilators and antibiotics, as well as Airvo. Patient is an ex-smoker, quit around 2016. He lives at home with his and son in a two-story home, 3 steps to enter. He typically stays on the main level. He does have difficulty completing his ADLs independently, helps at times. Says he needs bilateral knee replacements but he is not a surgical candidate. He does drive, however is unsure if he will be able to continue to do this after this hospitalization. He has an O2 concentrator that he obtained from [facility], however he is not seen anyone in the past 3 years. He was following with [facility] [place], however canceled all of his appointments and never returned. Patient has been very reluctant to have home oxygen set up for concentrator greater than 5 L. He did have some portable tanks but those have been empty for years. There was a social work referral for mental health, possible depression. Patient had adamantly declined oxygen in the home, even if strongly recommended. He had denied any history of mental health issues. Patient does have 6 children. He does mention that he PFO but cardiology had told him there was no surgical intervention available, he was not a candidate. He stopped following with cardiology at that point. Patient is slowly improving. This morning, he was on high flow oxygen at 10 L/min. He is still coughing but less sputum production. The nurse reports she has him weaned down to 5 L at this afternoon. His Covid PCR and respiratory panel were negative. He remains on IV steroids. Patient reports his SPO2 will remain the same if whether he is on oxygen or not. We discussed palliative services and patient quickly declined services. We did discuss a little further and the importance of not being hypoxic as this is stressful on his heart and other organs. He is 87% on 5 L with conversation. He denies any nausea, vomiting, diarrhea. His bowels are moving okay. No shortness of breath at rest, does get dyspneic on exertion. No sore throat or hoarseness. No dizziness. Denies lower extremity edema. [facility] Medical History Abdominal pain Acute myocardial infarction Atherosclerotic heart disease of [place] coronary artery without angina pectoris Benign neoplasm Cancer of skin of left ear Chronic hypoxemic respiratory failure Colon cancer COPD (chronic obstructive pulmonary disease) Diverticulitis of colon (without mention of hemorrhage) Dyspnea Former smoker Hernia Hyperlipidemia Hyperlipidemia, mixed Hypertension Impaired glucose tolerance Malignant neoplasm of colon Patent foramen ovale Pneumonia, organism unspecified Ruptured appendix Home Medications clopidogrel 75 mg PO DAILY 06/25/16 [History Last Taken 07/15/18] lisinopril 5 mg PO QHS 06/25/16 [History Last Taken 07/14/18] nitroglycerin 0.4 mg SUBLINGUAL Q5M PRN 06/25/16 [History Last Taken Unknown] lovastatin 40 mg PO QHS 03/20/17 [History Last Taken 07/14/18] metoprolol succinate 50 mg PO QHS 03/20/17 [History Last Taken 07/14/18] aspirin 325 mg tablet 325 mg PO DAILY 07/07/18 [History Last Taken 07/15/18] ipratropium 20 mcg-albuterol 100 mcg/actuation mist for inhalation 1 puff INHALATION 4X/DAY #4 g 08/19/18 [Rx Last Taken Unknown] Allergy/AdvReac Type Severity Reaction Status Date / Time No Known Allergies Allergy Verified 09/18/18 10:11 Family History Mother Heart disease Myocardial infarction CHF (congestive heart failure) Father Myocardial infarction Heart disease Brother Heart disease Myocardial infarction Brother Heart disease Myocardial infarction Daughter Heart murmur Surgical History Abnormal colonoscopy Encounter for fitting or adjustment of device Encounter for removal of vascular catheter H/O heart artery stent S/P colonoscopic polypectomy Status post laparoscopic colectomy Stented coronary artery Social History number of children: 6 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, 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 Physical Exam Const alert, oriented x3 and no apparent distress General Appearance: cooperative Nutritional Appearance: obese HEENT normocephalic and head/scalp atraumatic Neck supple General: trachea midline Resp normal respiratory effort Effort and Inspection: able to speak in complete sentences and symmetric chest movement Auscultation: diminished lung sounds; Negative for rales, rhonchi or wheezes Cardio regular rate, regular rhythm, S1 normal heart sound and S2 normal heart sound GI normal to inspection, nondistended, normoactive bowel sounds Extremity normal to inspection and no clubbing, cyanosis or edema Skin no rashes or lesions noted Neuro moves all extremities and no focal motor deficits Psych Appearance: grossly normal Attitude: calm and engaged Activity / Motor Behavior: appropriate eye contact Speech: normal speech Thought Content: No suicidality and No hallucination(s) Attention / Concentration: attention grossly intact Memory / Cognition: memory grossly intact Insight: limited
--- NOTE | 2021-06-22 14:39 | PN.HOSP_ITS ---
Subjective Subjective Breathing well when pulse ox reads in 80s. Has condenser at home, but does not use oxygen regularly. Objective Data Objective Data Vital Signs: Vital Signs Temp Pulse Resp BP Pulse Ox 36.4 C L 82 18 128/63 H 91 06/22/21 08:48 06/22/21 11:52 06/22/21 11:52 06/22/21 08:48 06/22/21 10:53 Oxygen Flow Rate (L/min) 10 Oxygen Delivery Method Nasal Cannula Weight: 105.2 kg Body Mass Index (BMI) 35.2 Intake & Output: Intake and Output for Last 24 Hours 06/20/21 06/21/21 06/22/21 23:59 23:59 23:59 Intake Total 1510 / 1510 150 / 150 400 / 400 Output Total 1000 / 1000 1350 / 1350 500 / 500 Balance 510 / 510 -1200 / -1200 -100 / -100 Lab / Micro Data Result Diagrams: 06/22/21 05:17 06/22/21 05:17 Labs: Laboratory Results - last 24 hr 06/22/21 05:17: WBC 6.5, RBC 4.30 L, Hgb 14.5, Hct 44.1, MCV 102.6 H, MCH 33.7 H , MCHC 32.9, RDW Std Deviation 46.0 H, RDW Coeff of Haley 12.1, Plt Count 188, MPV 10.1, Immature Gran % (Auto) 1.200 H, Neut % (Auto) 79.5 H, Lymph % (Auto) 12.6 L, [place] % (Auto) 6.4, Eos % (Auto) 0.0, Baso % (Auto) 0.3, Absolute Neuts (auto) 5.2, Absolute Lymphs (auto) 0.82 L, Nucleated RBC % 0 06/22/21 05:17: Sodium 140, Potassium 4.5, Chloride 103, Carbon Dioxide 33.0 H, Anion Gap 4 L, BUN 26 H, Creatinine 0.81, Estim Creat Clear Calc 85.62, Est GFR (MDRD) Af Amer 123, Est GFR (MDRD) Non-Af 101, BUN/Creatinine Ratio 32.3 H, Glucose 134 H, Calcium 9.1, Total Bilirubin 0.30, AST 28, ALT 23, Alkaline Phosphatase 61, Total Protein 6.8, Albumin 2.6 L, Globulin 4.2, Albumin/Globulin Ratio 0.6 L Micro: Microbiology 06/19/21 17:35 Blood Culture (Wb) - Left Hand Blood Culture - Preliminary No growth in 48 hours. 06/19/21 16:25 Blood Culture (Wb) - Anticubital Right Blood Culture - Preliminary No growth in 48 hours. 06/20/21 03:45 Sputum, Expectorated/Coughed Gram Stain - Final 06/20/21 03:45 Sputum, Expectorated/Coughed Respiratory Culture - Preliminary Streptococcus pneumoniae 06/19/21 19:50 Urine, Clean Catch Urine Culture - Final Gram positive rachele 06/20/21 00:32 Mucosa - Nasopharyngeal Respiratory Panel (PCR) - Final 06/19/21 23:55 Urine, Clean Catch Legionella Antigen - Final 06/19/21 23:55 Urine, Clean Catch Streptococcus pneumoniae Antigen (M - Final 06/19/21 16:25 Nasal Secretion SARS-CoV-2 Antigen (Rapid) - Final Physical Exam Const alert HEENT Head and Scalp: normocephalic Resp normal respiratory effort, no retractions, no use of accessory muscles and clear to auscultation bilaterally Cardio regular rate, regular rhythm, S1 normal heart sound and S2 normal heart sound GI normal to inspection, nondistended, normoactive bowel sounds, soft to palpation, non-tender and non-distended Extremity normal to inspection Assessment & Plan Assessment/Plan (1) Acute respiratory failure: QUALIFIERS: Respiratory failure complication: hypoxia Qualified Code(s): J96.01 - Acute respiratory failure with hypoxia (2) Right upper lobe pneumonia: QUALIFIERS: Pneumonia type: due to unspecified organism Qualified Code(s): J18.9 - Pneumonia, unspecified organism PLAN: 1. pneumococcal pneumonia Strep and legionella antigens negative Patient rapid antigen Covid and PCR Covid negative, respiratory panel negative. DC COVID isolation Sputum culture + for alpha hemolytic strep Pep therapy ordered O2 per protocol Scheduled DuoNeb nebulizer treatments ordered along with as needed albuterol nebulizers Encourage incentive spirometry Continue azithromycin and CTX Add Mucinex Add vest therapy 2. AECOPD Continue BDs. Continue methylpred 3. Acute on chronic hypoxic respiratory failure 2/2 pneumonia and AECOPD On high-flow NC, wean oxygen as tolerated Pt states that he infrequently uses oxygen at home. I suspect that the patient has been hypoxic chronically. Wean oxygen as able. 4. Hypertension Continue home medication regimen including lisinopril and metoprolol Vital signs currently stable 5. DVT prophylaxis-Lovenox subcu Charges/Coding Visit Charges Inpatient E&M: 48170 Subs Hosp L2
[2021-06-22] MEDS: Metoprolol(XL)Succ 50 MG Tablet PO (22:08)
[2021-06-22] MEDS: Atorvastatin Calcium 10 MG Tablet PO (22:08)
[2021-06-22] MEDS: Clopidogrel Bisulfate 75 MG Tablet PO (22:09)
[2021-06-22] MEDS: Lisinopril 5 MG Tablet PO (22:09)
[2021-06-22] MEDS: Aspirin 325 MG Tablet PO (22:09)
[2021-06-23] VITALS (10 sets, daily range): BP systolic 137–165; BP diastolic 80–86; PULSE 74–93; RESP 16–20; TEMP 36.4–36.6; O2SAT 84–94
--- NOTE | 2021-06-23 02:29 | NURSING ---
covid 19 pandemic charting initiated
[2021-06-23] MEDS: Ipratropium/Albuterol Sulfate 3 ML AMPUL.NEB INHALATION ×4 (03:35→15:29)
[2021-06-23] MEDS: 0.9% Saline Lock 10 ML Syringe IV ×2 (05:44→15:07)
[2021-06-23] MEDS: Enoxaparin 30 MG/0.3 ML Syringe SC (08:17)
[2021-06-23] MEDS: Azithromycin 250 MG Tablet 500 MG PO (08:18)
[2021-06-23] MEDS: guaiFENesin 600 MG Tablet PO (08:18)
--- NOTE | 2021-06-23 10:58 | NURSING ---
91% @ REST ON O2 6L NC
--- NOTE | 2021-06-23 11:01 | PCM.DC ---
Discharge Instructions Diet Discharge Diet: No restrictions Activity Discharge Activity: Return to Normal Activity (ease back into normal routine. ) Additional Activity Instructions:: Oxygen 5 L at rest and then 6 L with exertion Dressing / Incision Call your doctor if you observe: Fever of 101 or Higher and Shortness of breath Follow Up Care Please Follow Up With: Tanya Alfonso MD When: 2-4 weeks Test Results: Test results from this visit will be discussed in further detail at your follow-up appointment, if applicable. Discharge Plan Admission Admit Date/Time: 06/19/21 21:55 Primary Reason for Your Visit: pneumonia. COPD exacerbation. Attending Provider: Weston Lima Primary Care Provider: Celio Shaikh Discharge Orders/Prescriptions Prescriptions: New guaifenesin [Mucus Relief ER] 600 mg Tablet Extended Release 12hr 600 mg PO BID Qty: 20 RF: 0 levofloxacin 750 mg tablet 750 mg PO DAILY Qty: 3 RF: 0 prednisone 10 mg tablet 10 mg PO DAILY Qty: 30 RF: 0 Continued aspirin 325 mg tablet 325 mg PO DAILY RF: 0 ipratropium-albuterol 20-100 mcg/actuation mist 1 puff INHALATION 4X/DAY Qty: 4 RF: 6 clopidogrel 75 MG tablet 75 mg PO DAILY RF: 0 nitroglycerin 0.4 MG tablet 0.4 mg SUBLINGUAL Q5M PRN (Reason: Chest Pain) RF: 0 lisinopril 5 MG tablet 5 mg PO QHS RF: 0 lovastatin 40 MG tablet 40 mg PO QHS RF: 0 metoprolol succinate 50 MG tablet 50 mg PO QHS RF: 0 Referrals / Follow Up: Celio Shaikh MD [Primary Care Provider] - Within 1 Week Disposition Disposition (needs filled in before D/C Order can be placed): Home, Self Care
--- NOTE | 2021-06-23 11:09 | PCM.DC.SUM ---
Providers Date of Admission: 06/19/21 Primary Care Physician: Dr. Celio Shaikh MD Reason For Visit: ACUTE EXACERBATION OF CHRONIC OBSTRUCTIVE Diagnosis Discharge Diagnosis (1) Acute respiratory failure: Status: Acute Code(s): J96.00 - Acute respiratory failure, unspecified whether with hypoxia or hypercapnia Qualifiers: Respiratory failure complication: hypoxia Qualified Code(s): J96.01 - Acute respiratory failure with hypoxia (2) Right upper lobe pneumonia: Status: Acute Code(s): J18.9 - Pneumonia, unspecified organism Qualifiers: Pneumonia type: due to unspecified organism Qualified Code(s): J18.9 - Pneumonia, unspecified organism (3) COPD with acute exacerbation: Status: Chronic Code(s): J44.1 - Chronic obstructive pulmonary disease with (acute) exacerbation (4) Pneumococcal pneumonia: Status: Acute Code(s): J13 - Pneumonia due to Streptococcus pneumoniae Qualifiers: Laterality: right Lung location: upper lobe of lung Qualified Code(s): J13 - Pneumonia due to Streptococcus pneumoniae Medications at Discharge Home Medications clopidogrel 75 mg PO DAILY 06/25/16 lisinopril 5 mg PO QHS 06/25/16 nitroglycerin 0.4 mg SUBLINGUAL Q5M PRN 06/25/16 lovastatin 40 mg PO QHS 03/20/17 metoprolol succinate 50 mg PO QHS 03/20/17 aspirin 325 mg tablet 325 mg PO DAILY 07/07/18 ipratropium 20 mcg-albuterol 100 mcg/actuation mist for inhalation 1 puff INHALATION 4X/DAY #4 g 08/19/18 guaifenesin [Mucus Relief ER] 600 mg PO BID #20 tab 06/23/21 levofloxacin 750 mg PO DAILY #3 tab 06/23/21 prednisone 10 mg PO DAILY #30 tab 06/23/21 Hospital Course Operations None Summary of Care Provided Minutes Spent on Discharge: 35 Hospital Course: Sick 5-year-old male presents with 5 days of dyspnea. Patient initially stated that he was on 3 L at night but had to go up to 5 and still is having pulse ox in the 80 to 85%. Patient was found to have pneumonia. She of the interpretation was for Covid pneumonia on the CAT scan but patient rapid as well as PCR negative patient has been vaccinated for COVID-19. Sputum culture actually grew out alpha hemolytic strep and patient was continued on azithromycin and ceftriaxone. So the patient's respiratory failure was multifactorial due to acute exacerbation of COPD plus the pneumococcal pneumonia. Patient has chronic respiratory failure and likely lives hypoxic. Patient later endorsed that he does not really use oxygen frequently. He has seen sales attendant building materials in the past and has seen [facility] in the past but did not wish to follow-up with him any further and then has follow-up with Dr. Alfonso with the [facility]. He states that has not seen her in. Time. Advised that patient follow with sales attendant building [employer] and be evaluated for sleep apnea as well. Patient was checked for need of oxygen in the hospital and he was 85% on room air at rest, ambulated with 2 L and was 83 to 89% and then 89% 5 L at rest. Then was a 91% on 6 L. Even with his oxygen in the 80s patient has appeared comfortable. Patient will be discharged home with oxygen and stable condition. Patient will have 3 more days of levofloxacin complete a 7-day course of antibiotics for his pneumonia. Physical Exam Const alert Neck no lymphadenopathy Resp normal respiratory effort and no retractions Resp Narrative: faint scattered wheeze. Cardio regular rate, regular rhythm, S1 normal heart sound and S2 normal heart sound Weight / BMI Weight Weight: 105.2 kg Body Mass Index (BMI) 35.2 ABG / Lab / Microbiology Data Result Diagrams: 06/22/21 05:17 06/22/21 05:17 Microbiology: Microbiology 06/20/21 03:45 Sputum, Expectorated/Coughed Gram Stain - Final 06/20/21 03:45 Sputum, Expectorated/Coughed Respiratory Culture - Final Streptococcus pneumoniae 06/19/21 17:35 Blood Culture (Wb) - Left Hand Blood Culture - Preliminary No growth in 48 hours. 06/19/21 16:25 Blood Culture (Wb) - Anticubital Right Blood Culture - Preliminary No growth in 48 hours. 06/19/21 19:50 Urine, Clean Catch Urine Culture - Final Gram positive rachele 06/20/21 00:32 Mucosa - Nasopharyngeal Respiratory Panel (PCR) - Final 06/19/21 23:55 Urine, Clean Catch Legionella Antigen - Final 06/19/21 23:55 Urine, Clean Catch Streptococcus pneumoniae Antigen (M - Final 06/19/21 16:25 Nasal Secretion SARS-CoV-2 Antigen (Rapid) - Final D/C Instructions Discharge Diet: No restrictions Additional Activity Instructions: Oxygen 5 L at rest and then 6 L with exertion Call your doctor if you observe: Fever of 101 or Higher and Shortness of breath Please Follow Up With: Tanya Alfonso MD When: 2-4 weeks Meaningful Use Info Meaningful Use Diagnoses (Choose all that apply): None applicable Discharge Plan Admission Admit Date/Time: 06/19/21 21:55 Primary Reason for Your Visit: pneumonia. COPD exacerbation. Attending Provider: Weston Lima Primary Care Provider: Celio Shaikh Discharge Orders/Prescriptions Prescriptions: New guaifenesin [Mucus Relief ER] 600 mg Tablet Extended Release 12hr 600 mg PO BID Qty: 20 RF: 0 levofloxacin 750 mg tablet 750 mg PO DAILY Qty: 3 RF: 0 prednisone 10 mg tablet 10 mg PO DAILY Qty: 30 RF: 0 Continued aspirin 325 mg tablet 325 mg PO DAILY RF: 0 ipratropium-albuterol 20-100 mcg/actuation mist 1 puff INHALATION 4X/DAY Qty: 4 RF: 6 clopidogrel 75 MG tablet 75 mg PO DAILY RF: 0 nitroglycerin 0.4 MG tablet 0.4 mg SUBLINGUAL Q5M PRN (Reason: Chest Pain) RF: 0 lisinopril 5 MG tablet 5 mg PO QHS RF: 0 lovastatin 40 MG tablet 40 mg PO QHS RF: 0 metoprolol succinate 50 MG tablet 50 mg PO QHS RF: 0 Referrals / Follow Up: Celio Shaikh MD [Primary Care Provider] - Within 1 Week Disposition Disposition (needs filled in before D/C Order can be placed): Home, Self Care Charges/Coding Visit Charges Inpatient E&M: 83304 Disch Hosp
--- NOTE | 2021-06-23 12:08 | NURSING ---
aware pt refusing additional home oxygen set up. aware Dr. Lima is aware, talked with patient. aware no new home o2 to set up at this time. copy of script for the new home o2 and information for [employer] and other DME companies given to primary RN to include in DC packet.
--- NOTE | 2021-06-23 12:33 | NURSING ---
[place] [facility] [place] from case mgmt as pt verbalized to primary RN that he does not want portable O2 tanks but would like to see about getting a new concentrator.
--- NOTE | 2021-06-23 12:57 | NURSING ---
PT IS STILL REFUSING OXYGEN FOR HOME, HOWEVER, IS STATING HE IS WILLING TO GET A NEW CONCENTRATOR FOR HOME. 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
--- NOTE | 2021-06-26 14:04 | CASEMGMT ---
L[facility] Discharge Follow-up Phone Call: MARIA GUADALUPEHari: Jerry Strata:3 Call Date: 06/26/21 Discharge Date: 06/23/21 Time of Call: 1400 Admitting Diagnosis: COPD exac and pneumonia This [facility] ANDRES attempted to contact pt via phone for discharge follow-up. Pt did not answer and per the phone prompt a voicemail box has not been set up at this time. Monica García RN CM
== END 2021-06-23 16:02 | disposition home or self-care (01) | DRG 193 ==
LOC: ED 17:51 → MS3 06-20 03:24
PROVIDERS: Nurse Practitioner Family; Admitting Provider Hospitalist; Emergency Provider Student in an Organized Health Care Education/Training Program; PCP Family Medicine
DX: J13 Pneumonia due to Streptococcus pneumoniae (principal); J96.21 Acute and chronic respiratory failure with hypoxia; J44.1 Chronic obstructive pulmonary disease with (acute) exacerbation; J44.0 Chronic obstructive pulmonary disease with (acute) lower respiratory infection; E66.9 Obesity, unspecified; Z68.37 Body mass index [BMI] 37.0-37.9, adult; I10 Essential (primary) hypertension; Z99.81 Dependence on supplemental oxygen; Z87.891 Personal history of nicotine dependence; Z79.899 Other long term (current) drug therapy
CPT/HCPCS: 36415; 71045; 71275; 80048; 80053; 81001; 83605; 83735; 84145; 84484; 85025; 85610; 85730; 87040; 87070; 87077; 87086; 87088; 87186; 87205; 87426; 87449; 87633; 87635; 93005; 94002; 94640; 94660; 94667; 94668; 97110; 97162; 97166; 97530; 97802; 97803; 99251; 99285; J7030; Q9967; U0005; A4216; G0463; J0696; U0003

== ENCOUNTER 2022-06-05 14:21 | Inpatient (IN) | payer MEDICARE, SELFPAY ==
[2018-07-15 13:42] VITALS: BMI 37.2
[2022-06-05] VITALS (12 sets, daily range): BP systolic 145–178; BP diastolic 63–93; PULSE 35–43; RESP 14–22; TEMP 36.1–37.2; O2SAT 80–95; BMI 38.3; BMI 38.5
--- NOTE | 2022-06-05 14:33 | EKG12_ITS ---
Test Reason : sob Blood Pressure : / mmHG Vent. Rate : 041 BPM Atrial Rate : 045 BPM P-R Int : 000 ms QRS Dur : 134 ms QT Int : 502 ms P-R-T Axes : 063 095 051 degrees QTc Int : 414 ms Sinus bradycardia with A-V dissociation and Wide QRS rhythm with Fusion complexes Rightward axis Non-specific intra-ventricular conduction block Nonspecific T wave abnormality Abnormal ECG Confirmed by JADA WISE, ASHVIN ([id number]), video tape editor VICENTA VASQUEZ ([id number]) on 06/07/2022 9:36:38 AM Referred By: Madhu Confirmed By:ASHVIN ELIAS MD
--- NOTE | 2022-06-05 14:42 | EDS_ITS ---
HPI History of Present Illness Chief Complaint: Shortness of Breath Informant: patient Onset/Context/Timing Onset: Weeks Context: gradual Timing: Continuous Current Severity: Mild Maximum Severity: Mild Associated Symptoms cough; Negative for fever, sore throat, chills, sweats, clear sputum, white sputum, yellow sputum or green sputum Chest Pain: Positive for None Narrative Narrative: 66-year-old male history of prior ME, CAD with multiple cardiac stents. Also history of COPD hypertension and prior colon cancer that was resected without metastases. He is on Plavix. States the last 2 to 3 weeks he has had a slow heart rate like around 40 and he has been more short of breath. States he has a chronic cough but nonproductive. No chest pain. No hemoptysis. No fever or chills. PE Risk Factors: Negative for Cancer, OCP + Smoking + > 35, Prior DVT or PE, Recent immobilization, Recent surgery or Recent travel Prior similar symptoms: No Recent Illness/Hospitalization: No PFSH PFSH Medical History Abdominal pain Acute myocardial infarction Atherosclerotic heart disease of [place] coronary artery without angina pectoris Benign neoplasm Cancer of skin of left ear Chronic hypoxemic respiratory failure Colon cancer COPD (chronic obstructive pulmonary disease) Diverticulitis of colon (without mention of hemorrhage) Dyspnea Former smoker Hernia Hyperlipidemia Hyperlipidemia, mixed Hypertension Impaired glucose tolerance Malignant neoplasm of colon Obesity Patent foramen ovale Pneumonia, organism unspecified Ruptured appendix 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 Home Medications clopidogrel 75 mg tablet 75 mg PO DAILY 06/25/16 [History Last Taken 07/15/18] lisinopril 5 mg tablet 5 mg PO QHS 06/25/16 [History Last Taken 07/14/18] nitroglycerin 0.4 mg sublingual tablet 0.4 mg sublingual Q5M PRN Chest Pain 06/25/16 [History Last Taken Unknown] lovastatin 40 mg tablet 40 mg PO QHS 03/20/17 [History Last Taken 07/14/18] metoprolol succinate 50 mg tablet,extended release 24 hr 50 mg PO QHS 03/20/17 [History Last Taken 07/14/18] aspirin 325 mg tablet 325 mg PO DAILY 07/07/18 [History Last Taken 07/15/18] budesonide 160 mcg-glycopyr 9 mcg-formot 4.8 mcg/actuation HFA inhaler (Katiatri Aerosphere) 2 inh inhalation BID sob 06/05/22 [History Last Taken 06/04/22] ipratropium 20 mcg-albuterol 100 mcg/actuation mist for inhalation (Combivent Respimat) 1 puff inhalation 4X/DAY sob 06/05/22 [History Last Taken Unknown] Allergy/AdvReac Type Severity Reaction Status Date / Time No Known Allergies Allergy Verified 06/05/22 14:22 Family History Mother Heart disease Myocardial infarction CHF (congestive heart failure) Father Myocardial infarction Heart disease Brother Heart disease Myocardial infarction Brother Heart disease Myocardial infarction Daughter Heart murmur Surgical History Abnormal colonoscopy Encounter for fitting or adjustment of device Encounter for removal of vascular catheter H/O heart artery stent S/P colonoscopic polypectomy Status post laparoscopic colectomy Stented coronary artery Social History number of children: 6 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 Slow heart rate. No chest pain. Nonproductive chronic cough. Review of Systems ROS Unobtainable: Denies due to encephalopathy Constitutional Constitutional ED: Denies chills or fever(s) Eyes Eyes: Denies blurry vision ENT ENT ED: Denies ear pain Cardiovascular Cardiovascular: Denies chest pain or palpitations Respiratory/Chest Respiratory/Chest: Reports cough and dyspnea Gastrointestinal Gastrointestinal: Denies abdominal pain Genitourinary Genitourinary ED: Denies dysuria or hematuria Musculoskeletal Musculoskeletal: Denies arthralgias Integumentary Denies abscess Neurologic Neurologic: Denies headache(s) Psychiatric Psychiatric: Denies anxiety Endocrine Endocrinology: Denies cold intolerance Hematologic/Lymphatic Hematologic/Lymphatic: Denies easy bleeding Allergic/Immunologic Allergic/Immunologic ED: Denies mouth swelling or tongue swelling EXAM Physical Exam Narrative Exam Narrative: 66-year-old male currently no acute distress. His heart rate is around 40 but his blood pressure is 169/93.HEENT exam unremarkable. Moist membranes. Neck nontender no JVD. Lungs clear to auscultation bilaterally. Currently no rales, rhonchi or wheezing. Heart bradycardic rate about 40 no murmur. Abdomen soft nontender normal bowel sounds no peritoneal signs.Moving all 4 extremities. Trace edema bilaterally On the lower extremities. Neurologically is awake and alert with no focal motor deficits. He answers questions and follows commands.Normal motor strength. Const Vital Signs: 06/05/22 14:22 06/05/22 14:24 06/05/22 14:32 Temperature 97.3 F L 98.9 F Temperature Source Temporal Temporal Pulse Rate 41 L 40 L 40 L Respiratory Rate 18 22 H Respiratory Effort Respiratory Depth Respiratory Pattern Blood Pressure 169/93 H 159/72 H Blood Pressure Mean 118 101 Pulse Ox 80 94 94 Oxygen Delivery Method Room Air Nasal Cannula Nasal Cannula Oxygen Flow Rate (L/min) 3 3 06/05/22 14:32 06/05/22 14:34 Temperature Temperature Source Pulse Rate Respiratory Rate Respiratory Effort Short of Breath Respiratory Depth Shallow Respiratory Pattern Tachypnea Blood Pressure Blood Pressure Mean Pulse Ox Oxygen Delivery Method Nasal Cannula Nasal Cannula Oxygen Flow Rate (L/min) 3 3 Positive well nourished, well developed and obese; Negative for cachectic, contractures or unkempt General Appearance ED: well developed and NAD; Negative for unkempt, cachectic, contractures or pallor Nutritional Appearance: obese; Negative for cachectic HEENT Reports moist mucous membranes; Denies dry mucous membranes atraumatic; Negative for trauma Mouth ED: No dry mucous membranes Mouth: No dry mucous membranes Eyes PERRL and EOMs intact bilaterally General Eye ED: Negative for pale conjunctiva or scleral icterus Neck no lymphadenopathy, supple, no meningeal signs and no JVD General: Negative for tenderness Lymph Lymphatic: Negative for other Chest Wall Chest: Negative for other Resp normal respiratory effort and clear to auscultation bilaterally Auscultation: Negative for rales, rhonchi or wheezes Cardio regular rhythm, S1 normal heart sound, S2 normal heart sound and no murmurs; Negative for regular rate Cardio Narrative: Bradycardia rate of 40. Rate: bradycardia GI non-tender, non-distended and no masses Inspection: Negative for other Auscultation: normoactive bowel sounds Palpation: soft; Negative for tender, guarding or mass Back/Spine no CVA tenderness and normal to inspection General Back: Negative for CVA tenderness Extremity normal to inspection General Extremety ED: Yes edema; Negative for tenderness General Extremity: edema Neuro oriented x3 and CN's II-XII intact bilaterally Sensorium / Orientation: alert, oriented to person, oriented to place and oriented to time; Negative for orientation impaired, confused, lethargic or stuporous Speech: speech normal Motor Exam: strength 5/5 throughout Psych Appearance: Negative for unkempt Attitude: No agitated Mood & Affect: Negative for depressed, anxious or tearful Thought Process: normal thought process Skin no wounds General Skin Exam: Negative for jaundice or pallor Lesions: no lesions Rashes: no rashes Trauma: Negative for abrasion MDM MDM MDM Narrative Medical decision making narrative: 66-year-old male with underlying cardiac disease prior ME and stent.Is bradycardic and appears that he may have a third-degree heart block. He is currently stable and his blood pressure is 159/72. Pacer pads were paced on his chest. Will undergo cardiac work-up. Currently he is bradycardic but stable. Repeat exam patient doing well at 3:14 PM Heart rate again is around 40 but his pressure is stable. He and I discussed all his test results. The plan will be to admit him. I already spoke to Dr. Ruvalcaba on-call for cardiology. He reviewed his EKG. He plans observe the patient overnight and he may need to put a pacemaker in him tomorrow. Hospitalist will admit the patient. Lab Data Attestation: I reviewed the patient's lab results. Lab results narrative: CBC shows a white count of 6. H&H 15 and 45. Platelets are slightly low at 134,000. Electrolytes show a gap of 7.BUN of 20 creatinine 1.1. Glucose 121. Troponin is normal at 26. Labs: Laboratory Results - last 24 hr 06/05/22 06/05/22 14:35 14:35 WBC 6.4 RBC 4.47 L Hgb 15.2 Hct 45.6 MCV 102.0 H MCH 34.0 H MCHC 33.3 RDW Std Deviation 48.8 H RDW Coeff of Haley 12.8 Plt Count 134 L MPV 10.3 Immature Gran % (Auto) 0.300 Neut % (Auto) 64.0 Lymph % (Auto) 25.9 Tripp % (Auto) 7.7 Eos % (Auto) 1.6 Baso % (Auto) 0.5 Absolute Neuts (auto) 4.1 Absolute Lymphs (auto) 1.65 Nucleated RBC % 0 Sodium 145 Potassium 4.6 Chloride 107 Carbon Dioxide 31.0 Anion Gap 7 BUN 20 H Creatinine 1.18 Estim Creat Clear Calc 57.97 Est GFR (MDRD) Af Amer 79 Est GFR (MDRD) Non-Af 65 BUN/Creatinine Ratio 16.9 Glucose 121 H Calcium 9.0 Troponin I High Sens 26 Radiography Chest X-Ray - ED: 1 View, Read by ED Physician, Heart, Lungs, Mediastinum, Bony Structures, No Acute Disease and Chronic Changes Diagnostic Testing: Chest x-ray, portable, single view interpreted by myself shows chronic changes consistent with COPD and lung scarring. Patient does have dextrocardia with his heart on the right side of his chest. No pneumonia. All seen on prior x-rays. Rhythm Strip Rhythm Strip: Sinus bradycardia Rate: 49 Ectopy: None EKG Initial EKG: Attestation: I personally reviewed and interpreted this EKG as follows: Interpretation: No Acute Injury Pattern and Sinus Bradycardia Comments: Sinus bradycardia rate of 49 appears to be A third-degree heart block. No acute signs of ME or ischemia. Prior EKG tracings: available for review Prior: Changed Critical Care Time Critical Care Time: Yes Critical care time (excluding procedures): 30-74 minutes, Discussing w/Patient &/or Family/Hospitality Services Manager, Discussing w/Consultants, Arranging Admission or Transfer, Performing Direct Patient Care at Bedside and - (31 minutes) Discharge Plan Triage Chief Complaint: Shortness of Breath ED Provider: David Leung Dx/Rx/DC Orders Clinical Impression: Bradycardia, Third degree heart block, History of heart artery stent, Dextrocardia Prescriptions: No Action aspirin 325 mg tablet 325 mg PO DAILY ipratropium-albuterol 20-100 mcg/actuation mist 1 puff INHALATION 4X/DAY Qty: 4 6RF clopidogrel 75 MG tablet 75 mg PO DAILY Label Comments: anti platelet nitroglycerin 0.4 MG tablet 0.4 mg SUBLINGUAL Q5M PRN (Reason: Chest Pain) Label Comments: chest pain lisinopril 5 MG tablet 5 mg PO QHS Label Comments: blood pressure lovastatin 40 MG tablet 40 mg PO QHS Label Comments: cholesterol metoprolol succinate 50 MG tablet 50 mg PO QHS Label Comments: BLOOD PRESSURE guaifenesin [Mucus Relief ER] 600 mg Tablet Extended Release 12hr 600 mg PO BID Qty: 20 0RF levofloxacin 750 mg tablet 750 mg PO DAILY Qty: 3 0RF prednisone 10 mg tablet 10 mg PO DAILY Qty: 30 0RF Rx Instructions: 4 tabs daily for 3 days, then 3 tabs daily for 3 days, then 2 tabs daily for 3 days, then 1 tab daily for 3 days Primary Care Provider: Celio Shaikh Referrals: Montana Langley MD [Med Staff - Active Staff] - Disposition Disposition: Acute Care Hospital [facility]
--- NOTE | 2022-06-05 14:45 | RAD_ITS ---
INDICATION: chest pain EXAMINATION/TECHNIQUE: X-RAY - XR Chest 1 View COMPARISON: 06/19/2021 FINDINGS: LINES/DEVICES: None. LUNGS: Prominence of the bronchovascular interstitial lung markings with subtle airspace opacification visualized in the right upper lung field and the left lower lung field, these demonstrate significant improvement in comparison to the prior studies suggestive of residual scarring/subsegmental atelectatic changes. The costophrenic angles are clear bilaterally no evidence of pleural effusion. Peribronchial cuffing bilateral hilar prominence is seen. MEDIASTINUM AND CARDIOVASCULAR STRUCTURES: Deviation of the mediastinum to the right demonstrates no significant change in comparison to the prior study. BONES AND SOFT TISSUES: Unremarkable. RAD/Chest 1 View (Portable) IMPRESSION: Improved aeration is visualized in comparison to the prior studies, residual bronchovascular prominence/interstitial changes in the right upper and left lower lung pal. Electronically Signed: Rolando Steele MD at 15:12 EDT ,
[2022-06-05 14:50] LABS: Absolute Lymphocyte Count 1.65 X10^3/uL (0.83-4.51); Absolute Neutrophil Count 4.1 X10^3/uL (2.0-7.7); Basophil# 0.03 X10^3/uL; Basophil% 0.5 % (0-1); Eosinophils% 1.6 % (0-5); Hematocrit 45.6 % (40-54); Hemoglobin 15.2 g/dL (13.0-16.5); Lymphocyte # 1.65 X10^3/ul (0.83-4.51); Lymphocyte % 25.9 % (19-41); Mean Corp Hgb Conc 33.3 g/dL (32-36); Mean Platelet Vol. 10.3 fl (6.2-12.0); Monocyte# 0.49 X10^3/uL; Monocyte% 7.7 % (0-10); NRBC Flagged by Analyzer 0 % (0-5); Neutrophil # 4.07 X10^3/uL (2.7-7.7); Platelet Count 134 K/mm3 (150-450); RBC Distribution Width CV 12.8 % (11.6-14.6); RBC Distribution Width SD 48.8 fl (35.1-43.9); Red Blood Count 4.47 M/mm3 (4.6-6.2); White Blood Count 6.4 K/mm3 (4.4-11.0)
[2022-06-05 15:02] LABS: Anion Gap 7 (5-15); BUN 20 mg/dL (7-18); BUN/Creat Ratio 16.9 RATIO (10-20); Chloride 107 mmol/L (98-107); Creatinine, Serum 1.18 mg/dL (0.70-1.30); EST Glomerular Filtration Rate 65 mL/min (>60); Est Glom Filt Rate - Afr Amer 79 mL/min (>60); Estimated Creatinine Clearance 57.97 ml/min; Glucose 121 mg/dL (74-106); Potassium 4.6 mmol/L (3.5-5.1); Sodium Level 145 mmol/L (136-145); Troponin-I HS (w/2H Reflex) 26 pg/mL (3.0-78.0)
--- NOTE | 2022-06-05 15:25 | HP.PCM.HOS_ITS ---
[facility] - General General Date of Admission: 06/05/22 Date of Service: 06/05/22 Chief Complaint: Symptomatic bradycardia HPI Narrative GABRIEL BENJAMIN, is a 66 M who presented to the emergency department [facility] on 06/05/2022 complaining of fatigue and shortness of breath. The patient reported that over the last 2 to 3 weeks he has had a slow heart rate in the 40s when he is checked it at home and has been more short of breath. He has been wearing his oxygen continuously which he is, per documentation, supposed to be doing but does not on a regular basis however with his increased shortness of breath he is demonstrated more compliance. Has had no fever, pharyngitis, chills, significant sputum production, nausea, vomiting, diarrhea, constipation, tingling, numbness, or weakness. He does report that he has had some blurred vision with intermittent diplopia with the most recent diplopia he experienced just recently in the emergency department although he states at the time of my evaluation it is improving but still present. He did not report this to the emergency department physician. He has a fairly significant cardiac history including CAD with a patent foramen ovale at baseline and his last cardiology appointment was at [facility] on 04/10/2022. He was not having any issues at that time. Vital signs on presentation the emergency department show temperature of 97.3, heart rates have been anywhere from 35-41, blood pressures 169/93, respiratory rate 18-22 and oxygen saturation was 80% on room air and improved to 94% on 3 L nasal cannula. This hypoxia appears to be baseline per documentation previously noted and through documentation in clinisync. His CBC was only remarkable for thrombocytopenia with a platelet count of 134,000. Coags were normal. His chemistry panel was unremarkable. Troponin was 26 on initial eval and his TSH was 1.30. A chest x-ray was obtained and shows no acute findings but does show bronchial vascular prominence and interstitial changes that appear to be chronic in the right upper and left lower lung pal. He also is noted to have dextrocardia. His EKG shows bradycardia and he appears to be in third-degree heart block. His QTC is prolonged at greater than 500. The emergency department physician discussed the case with cardiology and the p mary ann is to admit the patient for probable pacemaker placement tomorrow. He is hemodynamically and clinically stable at the time of admission. [facility] Medical History Abdominal pain Acute myocardial infarction Atherosclerotic heart disease of [place] coronary artery without angina pectoris Benign neoplasm Cancer of skin of left ear Chronic hypoxemic respiratory failure Colon cancer COPD (chronic obstructive pulmonary disease) Dextrocardia Diverticulitis of colon (without mention of hemorrhage) Dyspnea Former smoker Hernia Hyperlipidemia Hyperlipidemia, mixed Hypertension Impaired glucose tolerance Malignant neoplasm of colon Neoplasm of unspecified behavior of bone, soft tissue, and skin Obesity Open wound of left ear Patent foramen ovale Pneumonia, organism unspecified Ruptured appendix 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 Home Medications clopidogrel 75 mg tablet 75 mg PO DAILY 06/25/16 [History Last Taken 06/04/22] lisinopril 5 mg tablet 5 mg PO QHS 06/25/16 [History Last Taken 06/04/22] nitroglycerin 0.4 mg sublingual tablet 0.4 mg sublingual Q5M PRN Chest Pain 06/25/16 [History Last Taken 06/03/22] lovastatin 40 mg tablet 40 mg PO QHS 03/20/17 [History Last Taken 06/04/22] metoprolol succinate 50 mg tablet,extended release 24 hr 50 mg PO QHS 03/20/17 [History Last Taken 06/04/22] aspirin 325 mg tablet 325 mg PO DAILY 07/07/18 [History Last Taken 06/04/22] budesonide 160 mcg-glycopyr 9 mcg-formot 4.8 mcg/actuation HFA inhaler (Breztri Aerosphere) 2 inh inhalation BID sob 06/05/22 [History Last Taken 06/04/22] ipratropium 20 mcg-albuterol 100 mcg/actuation mist for inhalation (Combivent Respimat) 1 puff inhalation 4X/DAY sob 06/05/22 [History Last Taken Unknown] Allergy/AdvReac Type Severity Reaction Status Date / Time No Known Allergies Allergy Verified 06/05/22 14:22 Family History Mother Heart disease Myocardial infarction CHF (congestive heart failure) Father Myocardial infarction Heart disease Brother Heart disease Myocardial infarction Brother Heart disease Myocardial infarction Daughter Heart murmur Surgical History Abnormal colonoscopy Encounter for fitting or adjustment of device Encounter for removal of vascular catheter H/O heart artery stent History of heart artery stent S/P colonoscopic polypectomy Status post laparoscopic colectomy Stented coronary artery Social History number of children: 6 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, 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 current occupation: [employer] current occupational exposures/hazards: Yes ([employer]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) Smoking Status: Former smoker quit date: 06/24/16 how long ago did patient quit smokin, 1.5ppd second hand exposure: Yes (SPOUSE SMOKES IN THE HOME) substance use type: does not use what type of physical activity do you participate in: none seatbelt use: always ROS Constitutional Constitutional: Reports fatigue and weakness; Denies anorexia, change in weight, chills, fever(s), malaise, night sweats or other Eyes Eyes: Reports blurry vision and double vision; Denies change in eye color, change in vision, discharge from eye(s), erythema, eye pain, loss of vision or other ENT HEENT: Reports abnormal hearing and hearing loss; Denies dysphagia, ear pain, epistaxis, headache(s), nasal congestion, nasal discharge, post nasal drip, sinus pressure, sore throat or other Cardiovascular Cardiovascular: Reports dyspnea on exertion and lightheadedness; Denies chest p ain, claudication, edema, orthopnea, palpitations, paroxysmal nocturnal dyspnea, rapid heart rate, syncope or other Respiratory/Chest Respiratory/Chest: Reports dyspnea, shortness of breath at rest and shortness of breath with exertion; Denies cough, excessive phlegm production, hemoptysis, productive cough, wheezing or other Gastrointestinal Gastrointestinal: Denies abdominal pain, coffee ground emesis, constipation, diarrhea, dyspepsia, hematemesis, hematochezia, loose stools, melena, nausea, vo miting or other Genitourinary Genitourinary: Reports nocturia and urinary hesitancy; Denies burning urination, difficulty urinating, dysuria, hematuria, urinary frequency, urinary incontinence, urinary urgency or other Musculoskeletal Musculoskeletal: Reports back pain; Denies arthralgias, joint pain, joint stiffness, joint swelling, myalgias, neck pain or other Neurologic Neurologic: Denies abnormal gait, abnormal speech, confusion, disequilibrium, dizziness, focal weakness, headache(s), numbness, paresthesias, seizure-like activity, seizures, syncope, tingling, tremor(s) or other Psychiatric Psychiatric: Denies anxiety, depression, homicidal ideation, suicidal ideation or other Endocrine Endocrinology: Denies change in body appearance, cold intolerance, excessive sweating, heat intolerance, polydipsia, polyuria or other Hematologic/Lymphatic Hematologic/Lymphatic: Denies anemia, easy bleeding, easy bruising, lymphadenopathy or other Allergic/Immunologic Allergic/Immunologic: Denies rhinitis, hives, eczemia, asthma or other Vital Signs Vital Signs Vital Signs: 06/05/22 14:22 06/05/22 14:24 06/05/22 14:32 Temperature 97.3 F L 98.9 F Temperature Source Temporal Temporal Pulse Rate 41 L 40 L 40 L Respiratory Rate 18 22 H Respiratory Effort Respiratory Depth Respiratory Pattern Blood Pressure 169/93 H 159/72 H Blood Pressure Mean 118 101 Pulse Ox 80 94 94 Oxygen Delivery Method Room Air Nasal Cannula Nasal Cannula Oxygen Flow Rate (L/min) 3 3 06/05/22 14:32 06/05/22 14:34 Temperature Temperature Source Pulse Rate Respiratory Rate Respiratory Effort Short of Breath Respiratory Depth Shallow Respiratory Pattern Tachypnea Blood Pressure Blood Pressure Mean Pulse Ox Oxygen Delivery Method Nasal Cannula Nasal Cannula Oxygen Flow Rate (L/min) 3 3 Weight Weight: 114.4 kg Body Mass Index (BMI) 38.3 Physical Exam Const alert, oriented x3, no apparent distress and well nourished Constitutional Narrative: Obese, older white male sitting up in bed appears comfortable, family at bedside, patient appears nontoxic, heart rates in the mid 30s to 40 range, patient appears older than stated age General Appearance: cooperative HEENT normocephalic and head/scalp atraumatic HEENT Narrative: Moderate hearing loss, dentition is poor, Mallampati is 2-3, no thrush Eyes PERRL, EOMs intact bilaterally and conjunctivae normal Eyes Narrative: No scleral icterus Neck no lymphadenopathy, supple, no JVD and no carotid bruits Neck Narrative: Neck is short and thick, trachea is midline, no thyroid enlargement Resp normal respiratory effort, no retractions and no use of accessory muscles Resp Narrative: Diffusely diminished with few scattered end expiratory wheeze most notably on the right chest Auscultation: wheezes; Negative for crackles, rales or rhonchi Cardio S1 normal heart sound, S2 normal heart sound, no murmurs, no rub, no gallops, no clicks and no JVD; Negative for regular rate or regular rhythm Cardio Narrative: Bradycardia GI normal to inspection, nondistended, normoactive bowel sounds, soft to palpation, non-tender and non-distended Extremity no clubbing, cyanosis or edema Skin No no rashes or lesions noted, no wounds, skin turgor normal, no jaundice, no petechiae and no mottling Skin Narrative: Scattered actinic keratoses, missing part of his left ear Neuro oriented x3, CN's II-XII intact bilaterally, moves all extremities and no focal motor deficits Neuro Narrative: Patient with diplopia but no visual field cut, patient reports vision is also somewhat blurred Speech: speech normal Motor Exam: strength 5/5 throughout Psych affect normal Psych Narrative: Pleasant and appropriately interactive Results Lab / Micro Data Attestation: I reviewed the patient's lab results. Result Diagrams: 06/05/22 14:35 06/05/22 14:35 Labs: Laboratory Results - last 24 hr 06/05/22 14:35: WBC 6.4, RBC 4.47 L, Hgb 15.2, Hct 45.6, MCV 102.0 H, MCH 34.0 H , MCHC 33.3, RDW Std Deviation 48.8 H, RDW Coeff of Haley 12.8, Plt Count 134 L, MPV 10.3, Immature Gran % (Auto) 0.300, Neut % (Auto) 64.0, Lymph % (Auto) 25.9, [place] % (Auto) 7.7, Eos % (Auto) 1.6, Baso % (Auto) 0.5, Absolute Neuts (auto) 4.1, Absolute Lymphs (auto) 1.65, Nucleated RBC % 0 06/05/22 14:35: Sodium 145, Potassium 4.6, Chloride 107, Carbon Dioxide 31.0, Anion Gap 7, BUN 20 H, Creatinine 1.18, Estim Creat Clear Calc 57.97, Est GFR (MDRD) Af Amer 79, Est GFR (MDRD) Non-Af 65, BUN/Creatinine Ratio 16.9, Glucose 121 H, Calcium 9.0, Troponin I High Sens 26 Rhythm Strip Rhythm Strip: Sinus bradycardia Rate: 49 Ectopy: None Radiology Impression Chest X-Ray 06/05/22 14:45 IMPRESSION: Improved aeration is visualized in comparison to the prior studies, residual bronchovascular prominence/interstitial changes in the right upper and left lower lung pal. Electronically Signed: Rolando Steele MD at 15:12 EDT Reading Location ID and State: [facility] / MD Tel , Service support , Assessment & Plan Assessment/Plan (1) Bradycardia: (2) Third degree heart block: (3) Diplopia: (4) Blurred vision: PLAN: Plan Bradycardia with third-degree heart block -Cycle cardiac enzymes -Check echocardiogram -Hold home metoprolol -Check TSH -Hold aspirin -Hold Plavix -INR is pending -Cardiology consult with plan for pacemaker placement tomorrow Intermittent diplopia/blurred vision -Patient reporting approximately 2 weeks of intermittent diplopia and blurred vision -Patient is already on aspirin and Plavix but holding for procedure tomorrow -May be related to his heart block however need to rule out stroke -Echocardiogram in a.m. -Check CTA of the head neck -MRI of the brain -Continue home statin -Check lipids -Patient does have a known PFO at baseline Dextrocardia -Noted on multiple imaging studies here Chronic hypoxic respiratory failure/COPD -Documented noncompliance with oxygen at previous pulmonology visits and at his most recent cardiology visit at [facility] -Patient is to be on chronic continuous oxygen however he states he only wears oxygen when he is short of breath and at night. -Currently has been wearing continuous oxygen at 2 to 3 L -Encourage home compliance at discharge -Continue home inhalers -Recommend continued outpatient pulmonary follow-up--> currently following with Dr. Alfonso CAD/hypertension/hyperlipidemia/PFO/RCA aneurysm -Had followed with Dr. Song previously -History of multiple PCI -Holding aspirin and Plavix for above procedures -Hold home metoprolol -Continue home statin -Continue home lisinopril -Continue as needed nitroglycerin -Most recent EF is documented at 63% from 2019 cardiac catheterization -Patient declined further work-up with [facility] for PFO previously СВЕТЛАНА -Patient noncompliant History of colon malignancy -Currently in remission -No active issues Obesity -BMI 38.3 -Recommend weight loss -Complicates treatment, prognosis, outcomes DVT prophylaxis -Lovenox -SCDs CODE STATUS -Full code as per discussion on admission Charges/Coding Visit Charges Inpatient E&M: 82312 Init Hosp L3
--- NOTE | 2022-06-05 15:45 | CT_ITS ---
INDICATION: diplopia EXAMINATION: CTA HEAD - CTA Head and Neck W/ Contrast Injection (and W/O Contrast Images if performed) TECHNIQUE: [place] of [place]/head CT angiogram protocol was performed following IV contrast. Routine carotid CT angiogram protocol was performed without and with IV contrast. NASCET criteria using the distal ICAs for comparison were used for evaluation of stenoses. 3D reconstructions were reviewed of the CT angiogram head and neck. A radiation dose optimization technique was used for this scan. IV Contrast dosage and agent: 100 cc [id number] COMPARISON: None. FINDINGS: --Anterior cerebral circulation: ACAs: No significant stenosis at the visualized segments. ACOM: Present. MCAs: No significant stenosis at the visualized segments. --Posterior cerebral circulation: PCOMs: Not present wrapper sorter: No significant stenosis at the visualized segments. BASILAR ARTERY: No significant stenosis. --Carotid and vertebral circulation: AORTIC ARCH AND BRANCHES: Normal anatomy, patent. RIGHT CCA: No occlusion, significant stenosis or dissection. RIGHT ICA: Soft and calcific plaquing at the origin resulting in approximate 50% stenosis. LEFT CCA: No occlusion, significant stenosis or dissection. LEFT ICA: No occlusion, significant stenosis or dissection. RIGHT VERTEBRAL ARTERY: No occlusion, significant stenosis or dissection. LEFT VERTEBRAL ARTERY: No occlusion, significant stenosis or dissection. NECK SOFT TISSUES: Unremarkable. LUNG APICES: Emphysematous changes. BONES: Unremarkable. CT/CTA Head AND Neck W/ Contrast IMPRESSION: Approximately 50% stenosis of the origin of the right internal carotid artery secondary to soft and calcific plaquing. No vessel occlusion or intracranial aneurysm. Pulmonary emphysema. Electronically Signed: Jake Denton MD at 16:42 EDT ,
[2022-06-05 16:04] LABS: International Normalized Ratio 0.9; Prothrombin Time (Protime)PT. 12.1 SECONDS (11.7-14.9)
[2022-06-05 16:41] LABS: Reflex Troponin-HS? (from REC) Y
--- NOTE | 2022-06-05 18:21 | PCM.DC.SUM ---
Providers Date of Admission: 06/05/22 Date of Discharge: 06/05/22 Primary Care Physician: Dr. Celio Shaikh MD Consultations 06/05/22 16:57 Consult: Cardiology Routine Consulting Provider: Rony Ruvalcaba Reason for Consult: bradycardia EMERGENT Consult: No MD Notified: Yes Date Notified: 06/05/22 Time Notified: 15:23 Method of Notification: ED Physician Initiated Reason For Visit: BRADYCARDIA Diagnosis Discharge Diagnosis (1) Bradycardia: Status: Acute Code(s): R00.1 - Bradycardia, unspecified (2) Third degree heart block: Status: Acute Code(s): I44.2 - Atrioventricular block, complete (3) Diplopia: Status: Acute Code(s): H53.2 - Diplopia (4) Blurred vision: Status: Acute Code(s): H53.8 - Other visual disturbances Plan Bradycardia with third-degree heart block -Cycle cardiac enzymes -Check echocardiogram -Hold home metoprolol -Check TSH -Hold aspirin -Hold Plavix -INR is pending -Cardiology consult with plan for pacemaker placement tomorrow Intermittent diplopia/blurred vision -Patient reporting approximately 2 weeks of intermittent diplopia and blurred vision -Patient is already on aspirin and Plavix but holding for procedure tomorrow -May be related to his heart block however need to rule out stroke -Echocardiogram in a.m. -Check CTA of the head neck -MRI of the brain -Continue home statin -Check lipids -Patient does have a known PFO at baseline Dextrocardia -Noted on multiple imaging studies here Chronic hypoxic respiratory failure/COPD -Documented noncompliance with oxygen at previous pulmonology visits and at his most recent cardiology visit at [facility] -Patient is to be on chronic continuous oxygen however he states he only wears oxygen when he is short of breath and at night. -Currently has been wearing continuous oxygen at 2 to 3 L -Encourage home compliance at discharge -Continue home inhalers -Recommend continued outpatient pulmonary follow-up--> currently following with Dr. Alfonso CAD/hypertension/hyperlipidemia/PFO/RCA aneurysm -Had followed with Dr. Song previously -History of multiple PCI -Holding aspirin and Plavix for above procedures -Hold home metoprolol -Continue home statin -Continue home lisinopril -Continue as needed nitroglycerin -Most recent EF is documented at 63% from 2019 cardiac catheterization -Patient declined further work-up with [facility] for PFO previously СВЕТЛАНА -Patient noncompliant History of colon malignancy -Currently in remission -No active issues Obesity -BMI 38.3 -Recommend weight loss -Complicates treatment, prognosis, outcomes DVT prophylaxis -Lovenox -SCDs CODE STATUS -Full code as per discussion on admission Medications at Discharge Home Medications clopidogrel 75 mg tablet 75 mg PO DAILY antiplatlet 06/25/16 lisinopril 5 mg tablet 5 mg PO QHS 06/25/16 nitroglycerin 0.4 mg sublingual tablet 0.4 mg sublingual Q5M PRN Chest Pain 06/25/16 lovastatin 40 mg tablet 40 mg PO QHS cholesterol 03/20/17 metoprolol succinate 50 mg tablet,extended release 24 hr 50 mg PO QHS heart 03/20/17 aspirin 81 mg tablet 81 mg PO DAILY preventative 06/05/22 budesonide 160 mcg-glycopyr 9 mcg-formot 4.8 mcg/actuation HFA inhaler (Breztri Aerosphere) 2 inh inhalation BID sob 06/05/22 ipratropium 20 mcg-albuterol 100 mcg/actuation mist for inhalation (Combivent Respimat) 1 puff inhalation 4X/DAY sob 06/05/22 Hospital Course Operations None Procedures None and - (CTA head neck) Summary of Care Provided Minutes Spent on Discharge: 25 Hospital Course: GABRIEL BENJAMIN, is a 66 M who presented to the emergency department was [facility] on 06/05/2022 complaining of fatigue and shortness of breath.? The patient reported that over the last 2 to 3 weeks he has had a slow heart rate in the 40s when he is checked it at home and has been more short of breath.? He has been wearing his oxygen continuously which he is, per documentation, supposed to be doing but does not on a regular basis however with his increased shortness of breath he is demonstrated more compliance.? Has had no fever, pharyngitis, chills, significant sputum production, nausea, vomiting, diarrhea, constipation, tingling, numbness, or weakness.? He does report that he has had some blurred vision with intermittent diplopia with the most recent diplopia he experienced just recently in the emergency department although he states at the time of my evaluation it is improving but still present.? He did not report this to the emergency department physician.? He has a fairly significant cardiac history including CAD with a patent foramen ovale at baseline and his last cardiology appointment was at [facility] on 04/10/2022.? He was not having any issues at that time. Vital signs on presentation the emergency department show temperature of 97.3, heart rates have been anywhere from 35-41, blood pressures 169/93, respiratory rate 18-22 and oxygen saturation was 80% on room air and improved to 94% on 3 L nasal cannula.? This hypoxia appears to be baseline per documentation previously noted and through documentation in clinisync.? His CBC was only remarkable for thrombocytopenia with a platelet count of 134,000.? Coags were normal.? His chemistry panel was unremarkable.? Troponin was 26 on initial eval and his TSH was 1.30.? A chest x-ray was obtained and shows no acute findings but does show bronchial vascular prominence and interstitial changes that appear to be chronic in the right upper and left lower lung pal.? He also is noted to have dextrocardia.? His EKG shows bradycardia and he appears to be in third-degree heart block.? His QTC is prolonged at greater than 500. The emergency department physician discussed the case with cardiology and the plan is to admit the patient for probable pacemaker placement tomorrow.? He is hemodynamically and clinically stable at the time of admission.With his diplopia and visual changes a CTA of his head and neck was performed and showed approximately 50% stenosis of the origin of the RCA secondary to soft and calcific plaque with no other vessel occlusions or intracranial aneurysms noted. An MRI was ordered but has not yet been performed. Unfortunately the crisis specialist was not aware that there was a potential for dextrocardia. His EKG is not all that consistent with dextrocardia however his imaging appears to have dextrocardia. The crisis specialist has not performed pacer placement on patients with dextrocardia previously and felt more comfortable if the patient transfer to a tertiary center where this has been done previously. Patient was able to be transferred to [facility] and was transferred on 06/05/2022 in stable condition. Weight / BMI Weight Weight: 114.8 kg Body Mass Index (BMI) 38.5 ABG / Lab / Microbiology Data Result Diagrams: 06/05/22 14:35 06/05/22 14:35 Laboratory: Laboratory Results - last 24 hr 06/05/22 14:35: WBC 6.4, RBC 4.47 L, Hgb 15.2, Hct 45.6, MCV 102.0 H, MCH 34.0 H, MCHC 33.3, RDW Std Deviation 48.8 H, RDW Coeff of Haley 12.8, Plt Count 134 L, MPV 10.3, Immature Gran % (Auto) 0.300, Neut % (Auto) 64.0, Lymph % (Auto) 25.9, [place] % (Auto) 7.7, Eos % (Auto) 1.6, Baso % (Auto) 0.5, Absolute Neuts (auto) 4.1, Absolute Lymphs (auto) 1.65, Nucleated RBC % 0 06/05/22 14:35: Sodium 145, Potassium 4.6, Chloride 107, Carbon Dioxide 31.0, Anion Gap 7, BUN 20 H, Creatinine 1.18, Estim Creat Clear Calc 57.97, Est GFR (MDRD) Af Amer 79, Est GFR (MDRD) Non-Af 65, BUN/Creatinine Ratio 16.9, Glucose 121 H, Calcium 9.0, Troponin I High Sens 26 06/05/22 14:35: PT 12.1, INR 0.9 06/05/22 14:39: TSH 1.30 Radiography Diagnostic Testing: Radiology Impression Chest X-Ray 06/05/22 14:45 IMPRESSION: Improved aeration is visualized in comparison to the prior studies, residual bronchovascular prominence/interstitial changes in the right upper and left lower lung pal. Electronically Signed: Rolando Steele MD at 15:12 EDT , Head/Neck CTA 06/05/22 15:45 IMPRESSION: Approximately 50% stenosis of the origin of the right internal carotid artery secondary to soft and calcific plaquing. No vessel occlusion or intracranial aneurysm. Pulmonary emphysema. Electronically Signed: Jake Denton MD at 16:42 EDT , Meaningful Use Info Meaningful Use Diagnoses (Choose all that apply): None applicable Discharge Plan Admission Admit Date/Time: 06/05/22 15:18 Primary Reason for Your Visit: Bradycardia Attending Provider: Fannie Tiwari Primary Care Provider: Celio Shaikh Consulting Providers: Rony Ruvalcaba Discharge Orders/Prescriptions Prescriptions: No Action clopidogrel 75 MG tablet 75 mg PO DAILY Label Comments: anti platelet nitroglycerin 0.4 MG tablet 0.4 mg SUBLINGUAL Q5M PRN (Reason: Chest Pain) Label Comments: chest pain lisinopril 5 MG tablet 5 mg PO QHS Label Comments: blood pressure lovastatin 40 MG tablet 40 mg PO QHS Label Comments: cholesterol metoprolol succinate 50 MG tablet 50 mg PO QHS Label Comments: BLOOD PRESSURE Combivent Respimat 20-100 mcg/actuation mist 1 puff INHALATION 4X/DAY Label Comments: INHALE 1 PUFF BY MOUTH 4 TIMES DAILY NEEDED Breztri Aerosphere 160-9-4.8 mcg/actuation HFA aerosol inhaler 2 inh INHALATION BID Label Comments: INHALE 2 PUFFS TWICE DAILY DIRECTED aspirin 81 mg Tablet 81 mg PO DAILY Referrals / Follow Up: Celio Shaikh MD [Primary Care Provider] - Montana Langley MD [Med Staff - Active Staff] - Disposition Disposition (needs filled in before D/C Order can be placed): Acute Care Hospital Charges/Coding Visit Charges Inpatient E&M: 67868 Disch Hosp
--- NOTE | 2022-06-05 19:54 | NURSING ---
report given to pau baptiste from [facility], pt awaiting transport
[2022-06-05] MEDS: Atorvastatin Calcium 10 MG Tablet PO (20:21)
[2022-06-05] MEDS: 0.9% Saline Lock 10 ML Syringe IV (20:21)
[2022-06-05] MEDS: Lisinopril 5 MG Tablet PO (20:21)
[2022-06-05] MEDS: Budesonide Respules 0.5 MG/2 ML AMPUL.NEB. INHALATION (20:25)
[2022-06-05] MEDS: Ipratropium/Albuterol Sulfate 3 ML AMPUL.NEB INHALATION (20:26)
== END 2022-06-05 22:38 | disposition short-term general hospital (02) | DRG 309 ==
LOC: ED 15:33 → PCU 15:50
PROVIDERS: Admitting Provider Internal Medicine; Emergency Provider Emergency Medicine; PCP Family Medicine; Visit Provider Internal Medicine
DX: I44.2 Atrioventricular block, complete (principal); J96.11 Chronic respiratory failure with hypoxia; Q24.0 Dextrocardia; Q21.1 Atrial septal defect; D69.6 Thrombocytopenia, unspecified; I25.41 Coronary artery aneurysm; J44.9 Chronic obstructive pulmonary disease, unspecified; I25.10 Atherosclerotic heart disease of native coronary artery without angina pectoris; I25.2 Old myocardial infarction; E78.5 Hyperlipidemia, unspecified; H53.8 Other visual disturbances; H53.2 Diplopia; G47.33 Obstructive sleep apnea (adult) (pediatric); Z95.5 Presence of coronary angioplasty implant and graft; Z85.038 Personal history of other malignant neoplasm of large intestine; Z85.828 Personal history of other malignant neoplasm of skin; Z87.19 Personal history of other diseases of the digestive system; E66.9 Obesity, unspecified; Z79.82 Long term (current) use of aspirin; Z79.02 Long term (current) use of antithrombotics/antiplatelets; Z79.890 Hormone replacement therapy; Z87.891 Personal history of nicotine dependence; Z68.38 Body mass index [BMI] 38.0-38.9, adult; Z99.81 Dependence on supplemental oxygen
CPT/HCPCS: 70496; 70498; 71045; 80048; 84443; 84484; 85025; 85610; 93005; 94640; 99285; Q9967; A4216

== ENCOUNTER → 2023-10-23 | Outpatient (CLI) | payer MEDICARE, SELFPAY ==
[2018-07-15 13:42] VITALS: BMI 37.2
--- NOTE | 2023-10-23 07:31 | ECHOCS_ITS ---
Reason For Study: HAYDEN Procedure This was a 2D Doppler, Color Flow transthoracic echocardiogram. The study was technically difficult. Exam performed in department. Left Ventricle Mild concentric left ventricular hypertrophy. Normal LV size. The left ventricular ejection fraction is 55 %. Stage 1 diastolic dysfunction. Right Ventricle Normal right ventricle. There is a pacemaker lead in the right ventricle. Atria The left and right atria are normal. ICD or pacer leads identified within the right atrium. Mitral Valve Trivial mitral valve insufficiency. Aortic Valve Trisinus/trileaflet aortic valve. Pulmonic Valve The pulmonic valve is not well visualized. Great Vessels Normal sized aortic root. Pericardium/Pleural No pericardial effusion. Medication Diluted definity 4ml given slow IV push to enhance endocardial definition. MMode/2D Measurements & Calculations LVIDd: 5.0 cm IVSd: 1.2 cm Ao root diam: 3.4 cm LVIDs: 3.5 cm LVPWd: 1.2 cm FS: 30.2 % LAV(MOD-bp): 52.2 ml LVAd ap4: 33.7 cm2 SV(MOD-sp4): 60.5 ml LAV(MOD-bp) Indexed: 23.3 ml/m2 LVLd ap4: 7.8 cm LAV(MOD-sp2): 48.2 ml EDV(MOD-sp4): 115.9 ml LAV(MOD-sp4): 48.1 ml EDV(sp4-el): 122.7 ml LVAs ap4: 22.0 cm2 LVLs ap4: 7.1 cm ESV(MOD-sp4): 55.4 ml ESV(sp4-el): 58.2 ml EF(MOD-sp4): 52.2 % EF(sp4-el): 52.5 % SV(sp4-el): 64.4 ml LA A4 area: 17.2 cm2 LA dimension(2D): 3.5 cm RA A4 area: 15.6 cm2 Time Measurements MV dec time: 0.17 sec Doppler Measurements & Calculations MV E max andrés: 47.3 cm/sec Lat Peak E' Andrés: 6.2 cm/sec Med Peak E' Andrés: 4.9 cm/sec MV A max andrés: 103.0 cm/sec E/E' lat: 7.7 E/E' med: 9.6 MV E/A: 0.46 Ao V2 max: 110.1 cm/sec LV V1 max: 102.0 cm/sec PA V2 max: 107.7 cm/sec Ao max P.8 mmHg LV V1 max P.2 mmHg ECHO/Echo Complete W/ Contrast Interpretation Summary The study was technically difficult. Mild concentric left ventricular hypertrophy. The left ventricular ejection fraction is 55 %. Stage 1 diastolic dysfunction. Ordering Physician: Luis Barber Referring Physician: RADHA LEBRON Performed By: Claire Johnson RDCS
--- OUTSIDE RECORDS SUMMARY | 2023-10-23 07:51 | XMS RPT_ITS | CCD ---
Author Name Unknown Address [address] [place] [address] Organization [facility] Care Team Providers Care Surgical Scrub Tech Name Role Phone ARACELI AVELAR Unavailable Unavailable Rdaha Lebron Unavailable Unavailable Radha Lebron Unavailable Unavailable ARACELI AVELAR Unavailable Unavailable ARACELI AVELAR Unavailable Unavailable Radah Lebron Unavailable Unavailable Radha Lebron MD Primary Care Provider Radha Lebron MD Primary Care Provider Joyce Sheppard RN Unavailable Unavailable Radha Lebron MD Primary Care Provider Joyce Sheppard RN Unavailable Unavailable Radha Lebron MD Primary Care Provider AMALIA PRITCHARD Attending Unavailable RADHA LEBRON Primary Care Unavailable CAMILA BLAKE Attending Unavailable RADHA LEBRON Primary Care Unavailable RADHA LEBRON Referring Unavailable RADHA LEBRON Primary Care Unavailable RADHA LEBRON Attending Unavailable RADHA LEBRON Primary Care Unavailable RADHA LEBRON Attending Unavailable RADHA LEBRON Primary Care Unavailable AMALIA PRITCHARD Attending Unavailable RADHA LEBRON Primary Care Unavailable AMALIA PRITCHARD Referring Unavailable RADHA LEBRON Primary Care Unavailable AMALIA PRITCHARD Referring Unavailable RADHA LEBRON Primary Care Unavailable RADHA LEBRON Primary Care Unavailable RADHA LEBRON Primary Care Unavailable RADHA LEBRON Primary Care Unavailable RADHA LEBRON Primary Care Unavailable Medications Current Medications Medication Drug Class(es) Dates Sig (Normalized) Sig (Original) perflutren lipid microspheres 1.3 mL in NaCl (PF) 0.9% 10 mL injection (DEFINITY) (18 sources) Start: 05-28-2023 End: 08-26-2024 perflutren lipid microspheres 1.3 mL in NaCl (PF) 0.9% 10 mL injection (DEFINITY) Completed/Discontinued Medications Medication Drug Class(es) Dates Sig (Normalized) Sig (Original) acetaminophen 500 mg oral tablet (20 sources) End: 05-28-2023 take 1 tablet by mouth every eight hours as needed acetaminophen (TYLENOL) 500 mg tablet Take 500 mg by mouth every 8 hours as needed. 0 05/28/2023 Discontinued (Course of therapy completed) Problems Active Problems Problem Classification Problem Date Documented Da te Episodic/Chronic Cardiac and circulatory congenital anomalies (20 sources) Patent foramen ovale; Translations: [Atrial septal defect] Onset: 12-20-2020 12-20-2020 Chronic Cataract (1 source) Bilateral cataracts; Translations: [Unspecified cataract] Chronic Chronic obstructive pulmonary disease and bronchiectasis (20 sources) Centriacinar emphysema; Translations: [Centrilobular emphysema] Onset: 03-08-2008 08-24-2021 Chronic Coagulation and hemorrhagic disorders (20 sources) Platelet count below reference range; Translations: [Thrombocytopenia, unspecified] Onset: 09-09-2011 09-09-2011 Chronic Conduction disorders (20 sources) H/O: cardiac pacemaker in situ; Translations: [Presence of cardiac pacemaker] Onset: 06-07-2022 06-07-2022 Chronic Coronary atherosclerosis and other heart disease (20 sources) Coronary atherosclerosis; Translations: [Atherosclerotic heart disease of [place] coronary artery without angina pectoris] Onset: 03-22-2009 11-23-2015 Chronic Disorders of lipid metabolism (20 sources) Mixed hyperlipidemia; Translations: [Mixed hyperlipidemia] Onset: 11-27-2015 Chronic Diverticulosis and diverticulitis (20 sources) Diverticulitis; Translations: [Diverticulitis of intestine, part unspecified, without perforation or abscess without bleeding] Onset: 08-20-2010 08-20-2010 Chronic Essential hypertension (20 sources) Essential (primary) hypertension; Translations: [Essential hypertension] Onset: 11-19-2016 Chronic Hyperplasia of prostate (20 sources) Benign prostatic hyperplasia; Translations: [Benign prostatic hyperplasia without lower urinary tract symptoms] Onset: 11-23-2013 11-23-2013 Chronic Immunizations and screening for infectious disease (2 sources) Needs influenza immunization; Translations: [Encounter for immunization] 09-09-2023 Episodic Mood disorders (1 source) Depressive disorder; Translations: [Depression, unspecified depression type] 09-09-2023 Chronic Other aftercare (1 source) Wound finding; Translations: [Encounter for other specified aftercare] Episodic Other congenital anomalies (20 sources) Situs inversus viscerum; Translations: [Situs inversus] Onset: 03-03-2009 03-03-2009 Chronic Other diseases of bladder and urethra (20 sources) Hypertrophy of bladder; Translations: [Other specified disorders of bladder] Onset: 11-23-2013 11-23-2013 Chronic Other infections; including parasitic (3 sources) Personal history of other infectious and parasitic diseases; Translations: [History of COVID-19] Episodic Other lower respiratory disease (1 source) Hypoxia; Translations: [Hypoxemia] Episodic Other nervous system disorders (20 sources) Ulnar neuropathy; Translations: [Lesion of ulnar nerve, unspecified upper limb] Onset: 08-22-2011 08-22-2011 Chronic Other non-traumatic joint disorders (1 source) Pain in right knee; Translations: [Pain in joint, lower leg] 09-09-2023 Episodic Other nutritional; endocrine; and metabolic disorders (20 sources) Simple obesity ; Translations: [Other obesity due to excess calories] Onset: 07-21-2016 07-21-2016 Chronic Other nutritional; endocrine; and metabolic disorders (20 sources) Obese class II; Translations: [Obesity, unspecified] Onset: 12-01-2019 12-01-2019 Chronic Other nutritional; endocrine; and metabolic disorders (11 sources) Obesity caused by energy imbalance; Translations: [Other obesity due to excess calories] Onset: 07-21-2016 07-21-2016 Chronic Other skin disorders (1 source) Skin lesion; Translations: [Disorder of the skin and subcutaneous tissue, unspecified] 09-09-2023 Episodic Other skin disorders (1 source) Actinic keratosis; Translations: [Actinic keratosis] 09-09-2023 Episodic Residual codes; unclassified (2 sources) Obstructive sleep apnea syndrome; Translations: [Obstructive sleep apnea (adult) (pediatric)] Chronic Respiratory failure; insufficiency; arrest (adult) (20 sources) Chronic hypoxemic respiratory failure; Translations: [Chronic respiratory failure with hypoxia] Onset: 08-24-2021 08-24-2021 Chronic Screening and history of mental health and substance abuse codes (3 sources) Ex-cigarette smoker; Translations: [Personal history of nicotine dependence] Episodic Substance-related disorders (20 sources) Tobacco user; Translations: [Nicotine dependence, unspecified, uncomplicated] Onset: 11-23-2013 11-23-2013 Chronic Transient cerebral ischemia (20 sources) Transient cerebral ischemia; Translations: [Transient cerebral ischemic attack, unspecified] Onset: 06-06-2022 06-07-2022 Chronic Unclassified (1 source) Unknown / UNK(Unknown) Onset: 11-19-2016 Past or Other Problems Problem Classification Problem Date Documented Da te Episodic/Chronic Cancer of colon (20 sources) History of malignant neoplasm of colon; Translations: [Personal history of other malignant neoplasm of large intestine] Onset: 11-09-2012 11-09-2012 Episodic Cancer of rectum and anus (20 sources) History of malignant neoplasm of digestive organ; Translations: [Personal history of other malignant neoplasm of rectum, rectosigmoid junction, and anus] Onset: 12-23-2011 12-23-2011 Episodic Coronary atherosclerosis and other heart disease (20 sources) Patient post percutaneous transluminal coronary angioplasty; Translations: [Coronary angioplasty status] Onset: 03-05-2009 03-05-2009 Episodic Diabetes mellitus without complication (20 sources) Impaired fasting glycemia; Translations: [Impaired fasting glucose] Onset: 08-22-2010 08-22-2010 Episodic Other lower respiratory disease (20 sources) Dyspnea; Translations: [Shortness of breath] Onset: 11-27-2015 11-27-2015 Episodic Other lower respiratory disease (20 sources) Hypoxemia; Translations: [Hypoxemia] Onset: 06-12-2017 06-12-2017 Episodic Other lower respiratory disease (1 source) Dyspnea, unspecified; Translations: [Dyspnea and respiratory abnormalities] Onset: 05-30-2023 Episodic Other lower respiratory disease (1 source) Other abnormalities of breathing; Translations: [Dyspnea and respiratory abnormalities] Onset: 05-30-2023 Episodic Results Test Name Value Interpretation Reference Range Facil ity Vital Signs Date Time Vital Sign Value Performing Clinician Robbie medina 09-09-2023 15:10-0500 Body weight 110.31 kg Radha Lebron MD Work Phone: [facility] 09-09-2023 15:10-0500 Diastolic blood pressure 80 mm[Hg] Radha Lebron MD Work Phone: [facility] 09-09-2023 15:10-0500 Heart rate 88 /min Radha Lebron MD Work Phone: [facility] 09-09-2023 15:10-0500 Respiratory rate 18 /min Radha Lebron MD Work Phone: [facility] 09-09-2023 15:10-0500 SaO2% (BldA) [Mass fraction] 93 % Radha Lebron MD Work Phone: [facility] 09-09-2023 15:10-0500 Systolic blood pressure 114 mm[Hg] Radha Lebron MD Work Phone: [facility] 08-28-2023 09:42-0500 Diastolic blood pressure 72 mm[Hg] Amalia Sonia PA-C Work Phone: [facility] 08-28-2023 09:42-0500 Heart rate 74 /min Amalia Sonia PA-C Work Phone: [facility] 08-28-2023 09:42-0500 Respiratory rate 18 /min Amalia Sonia PA-C Work Phone: [facility] 08-28-2023 09:42-0500 SaO2% (BldA) [Mass fraction] 89 % Amalia Sonia PA-C Work Phone: [facility] 08-28-2023 09:42-0500 Systolic blood pressure 124 mm[Hg] Amalia Sonia PA-C Work Phone: [facility] 05-28-2023 13:48-0400 Body height 172.7 cm Amalia Sonia PA-C Work Phone: [facility] 05-28-2023 13:48-0400 Body weight 109.77 kg Amalia Sonia PA-C Work Phone: [facility] 05-28-2023 13:48-0400 Diastolic blood pressure 80 mm[Hg] Amalia Sonia PA-C Work Phone: [facility] 05-28-2023 13:48-0400 Heart rate 90 /min Amalia Sonia PA-C Work Phone: [facility] 05-28-2023 13:48-0400 Respiratory rate 14 /min Amlaia Sonia PA-C Work Phone: [facility] 05-28-2023 13:48-0400 SaO2% (BldA) [Mass fraction] 91 % Amalia Sonia PA-C Work Phone: [facility] 05-28-2023 13:48-0400 Systolic blood pressure 120 mm[Hg] Amalia Sonia PA-C Work Phone: [facility] 03-24-2023 14:04-0400 Body weight 110.04 kg Camila Blake MD Work Phone: [facility] 03-24-2023 14:04-0400 Diastolic blood pressure 68 mm[Hg] Camila Blake MD Work Phone: [facility] 03-24-2023 14:04-0400 Heart rate 110 /min Camila Blake MD Work Phone: [facility] 03-24-2023 14:04-0400 Respiratory rate 18 /min Camila Blake MD Work Phone: [facility] 03-24-2023 14:04-0400 SaO2% (BldA) [Mass fraction] 90 % Camila Blake MD Work Phone: [facility] 03-24-2023 14:04-0400 Systolic blood pressure 130 mm[Hg] Camila Blake MD Work Phone: [facility] 09-09-2022 15:49-0500 Body weight 113.31 kg Radha Lebron MD Work Phone: [facility] 09-09-2022 15:49-0500 Diastolic blood pressure 72 mm[Hg] Radha Lebron MD Work Phone: [facility] 09-09-2022 15:49-0500 Heart rate 92 /min Radha Lebron MD Work Phone: [facility] 09-09-2022 15:49-0500 Respiratory rate 20 /min Radha Lebron MD Work Phone: [facility] 09-09-2022 15:49-0500 SaO2% (BldA) [Mass fraction] 88 % Radha Lebron MD Work Phone: [facility] 09-09-2022 15:49-0500 Systolic blood pressure 124 mm[Hg] Radha Lebron MD Work Phone: [facility] 09-06-2022 09:13-0500 Body height 172.7 cm Respiratory Wstr Work Phone: [facility] 09-06-2022 09:13-0500 Body weight 113.85 kg Respiratory Wstr Work Phone: [facility] 07-10-2022 14:32-0400 Body height 172.7 cm Anton Shweta [employer]CN P Work Phone: [facility] 07-10-2022 14:32-0400 Body weight 107.96 kg Anton Linardi [employer].CN P Work Phone: [facility] 07-10-2022 14:32-0400 Diastolic blood pressure 72 mm[Hg] Anton Linardi [employer]BER.POOL TABLE MECHANIC Work Phone: [facility] 07-10-2022 14:32-0400 Heart rate 83 /min Anton Linardi [employer].CN P Work Phone: [facility] 07-10-2022 14:32-0400 SaO2% (BldA) [Mass fraction] 94 % Anton Linardi [employer].POOL TABLE MECHANIC Work Phone: [facility] 07-10-2022 14:32-0400 Systolic blood pressure 110 mm[Hg] Anton Linardi [employer].POOL TABLE MECHANIC Work Phone: [facility] 06-20-2022 12:52-0400 Body weight 109.54 kg Amalia Pritchard PA-C Work Phone: [facility] 06-20-2022 12:52-0400 Diastolic blood pressure 82 mm[Hg] Amalia Sonia PA-C Work Phone: [facility] 06-20-2022 12:52-0400 Heart rate 91 /min Amalia Sonia PA-C Work Phone: [facility] 06-20-2022 12:52-0400 SaO2% (BldA) [Mass fraction] 90 % Amalia Sonia PA-C Work Phone: [facility] 06-20-2022 12:52-0400 Systolic blood pressure 128 mm[Hg] Amalia Sonia PA-C Work Phone: [facility] 01-31-2022 14:17-0400 Body weight 118.39 kg Respiratory Wstr Work Phone: [facility] 01-31-2022 14:17-0400 Body weight 120.66 kg Amalia Sonia PA-C Work Phone: [facility] 01-31-2022 14:17-0400 Diastolic blood pressure 58 mm[Hg] Amalia Sonia PA-C Work Phone: [facility] 01-31-2022 14:17-0400 Heart rate 102 /min Respiratory Wstr Work Phone: [facility] 01-31-2022 14:17-0400 Heart rate 81 /min Amalia Sonia PA-C Work Phone: [facility] 01-31-2022 14:17-0400 SaO2% (BldA) [Mass fraction] 94 % Respiratory Wstr Work Phone: [facility] 01-31-2022 14:17-0400 SaO2% (BldA) [Mass fraction] 90 % Amalia Sonia PA-C Work Phone: [facility] 01-31-2022 14:17-0400 Systolic blood pressure 123 mm[Hg] Amalia Sonia PA-C Work Phone: [facility] Encounters Encounter Date Encounter Type Care Provider Facility Start: 10-15-2023 End: 10-16-2023 ambulatory RADHA LEBRON Facility:[facility] Start: 09-25-2023 ambulatory Amalia Raygoza PA-C Work Phone: Pulmonary Medicine Procedures Date Procedure Procedure Detail Performing Clinician Start: 09-09-2023 INFLUENZA VACCINE, P RSV FREE, AGE 65+ YR, HIGH DOSE, QUADRIVALENT (FLUZONE HIGH-DOSE) Radha Lebron MD Work Phone: Start: 09-09-2023 [employer] COVI D-19 VACCINE ( SEASON) AGE 12+ YR Radha Lebron MD Work Phone: Start: 08-28-2023 Noninvasive ear/puls e oximetry multiple emmanuel Pritchard PA-C Work Phone: Start: 07-08-2023 PACEMAKER REMOTE CHECK Jose Manuel Tracy MD Work Phone: Start: 03-26-2023 PACEMAKER REMOTE CHECK Jose Manuel Tracy MD Work Phone: Start: 03-24-2023 Lipid 1996 panel - S kristy or Plasma Rem Ck Start: 12-19-2022 PACEMAKER CLINIC CHECK Jose Manuel Tracy MD Work Phone: Start: 09-25-2022 PACEMAKER REMOTE CHECK Jose Manuel Tracy MD Work Phone: Start: 09-06-2022 Noninvasive ear/puls e oximetry multiple emmanuel Pritchard PA-C Work Phone: Start: 09-06-2022 Spmtry w/vc expirato ry adis w/wo mxml vol vntj Amalia Pritchard PA-C Work Phone: Start: 07-10-2022 Ecg routine ecg w/le ast 12 lds w/i&r Anton Linardi [employer] MEMBER.POOL TABLE MECHANIC Work Phone: Start: 06-15-2022 PACEMAKER REMOTE CHECK Jose Manuel Tracy MD Work Phone: Start: 06-12-2022 PACEMAKER CLINIC CHECK Jose Manuel Tracy MD Work Phone: Start: 06-07-2022 PACEMAKER CLINIC CHECK Jose Manuel Tracy MD Work Phone: Start: 02-11-2022 Adult depression screening assessment Jennyfer Cain [employer]BER.POOL TABLE MECHANIC Work Phone: Start: 01-31-2022 Noninvasive ear/puls e oximetry multiple deter Amalia Pritchard PA-C Work Phone: Start: 12-17-2018 Adult depression screening assessment Dioni Gonsalez [employer].POOL TABLE MECHANIC Work Phone: Start: 01-30-2018 Colonoscopy Dioni gonzales [employer].POOL TABLE MECHANIC Work Phone: Plan of Treatment Date Care Activity Detail Author Start: 03-24-2028 Lipid 1996 panel - Serum or Plasma Lipid Screening [facility] Start: 03-24-2028 LIPID SCREEN LIPID SCREEN [facility] Start: 06-07-2027 LIPID SCREEN LIPID SCREEN [facility] Start: 02-12-2027 LIPID SCREEN LIPID SCREEN [facility] Start: 03-24-2026 DIABETES SCREEN DIABETES SCREEN [facility] Start: 03-24-2026 Diabetes Screening Diabetes Screening [facility] Start: 12-20-2025 LIPID SCREEN LIPID SCREEN [facility] Start: 06-12-2025 DIABETES SCREEN DIABETES SCREEN [facility] Start: 06-07-2025 DIABETES SCREEN DIABETES SCREEN [facility] Start: 02-12-2025 DIABETES SCREEN DIABETES SCREEN [facility] Start: 09-09-2024 Annual PCP Team Chronic Disease Visit Annual PCP Team Chronic Disease Visit [facility] Start: 08-28-2024 BP Controlled (<130/80) BP Controlled (<130/80) [facility] Start: 05-02-2024 Urine microalbumin profile [facility] Start: 03-24-2024 Hepatitis B surface antibody level LDL CHOLESTEROL [facility] Start: 03-11-2024 ANNUAL PCP TEAM CHRONIC DISEASE VISIT ANNUAL PCP TEAM CHRONIC DISEASE VISIT [facility] Start: 03-09-2024 End: 06-08-2024 Comprehensive metabolic 2000 panel - Serum or Plasma COMP METABOLIC PANEL Lab Routine Essential hypertension Mixed hyperlipidemia Atherosclerosis of [place] coronary artery of [place] heart without angina pectoris Elevated glucose Expected: 03/09/2024 (Approximate), Expires: 06/08/2024 [facility] Work Phone: Immunizations Immunization Date Immunization Notes Care Provider Fa [facility] 09-09-2023 COVID-19 vaccine, ag e 12+ yr, season (PFIZER-BIONTECH) Radha Lebron MD Work Phone: [facility] 09-09-2023 influenza (HD-IIV4) vaccine, age 65+ yr, high dose, quadrivalent, PF (FLUZONE HIGH-DOSE) Radha Lebron MD Work Phone: [facility] 09-06-2022 influenza, high-dose , quadrivalent vaccine (FLUZONE HIGH DOSE QUADRIVALENT) Respiratory Wstr Work Phone: [facility] 09-06-2022 influenza virus vaccine, unspecified formulation Rem Ck [facility] 02-12-2022 COVID-19 vaccine, ag e 12+ yr (PFIZER-BIONTECH - SCHWARTZ TOP) Jennyfer Cain APRN.POOL TABLE MECHANIC Work Phone: [facility] Work Phone: 08-11-2021 influenza, high-dose , quadrivalent vaccine (FLUZONE HIGH DOSE QUADRIVALENT) Dioni Gonsalez APRN.POOL TABLE MECHANIC Work Phone: [facility] 08-11-2021 pneumococcal polysaccharide vaccine, 23 valent Dioni Gonsalez [employer].POOL TABLE MECHANIC Work Phone: [facility] 08-30-2019 influenza, high dose seasonal, preservative-free Dioni Gonsalez [employer]BER.POOL TABLE MECHANIC Work Phone: [facility] Work Phone: 12-17-2018 pneumococcal conjuga te vaccine, 13 valent Dioni Gonsalez [employer] MEMBER.POOL TABLE MECHANIC Work Phone: [facility] 08-20-2018 influenza, high dose seasonal, preservative-free Dioni Wallace [employer]BER.POOL TABLE MECHANIC Work Phone: [facility] Work Phone: 07-16-2018 influenza, seasonal, injectable, preservative free Dioni Wallace [employer] MEMBER.POOL TABLE MECHANIC Work Phone: [facility] 06-04-2017 influenza, injectabl e, quadrivalent, contains preservative Dioni Wallace [employer] MEMBER.POOL TABLE MECHANIC Work Phone: [facility] 05-30-2017 influenza, injectabl e, quadrivalent, preservative free Dioni Wallace F[employer] MEMBER.POOL TABLE MECHANIC Work Phone: [facility] 09-18-2016 influenza, injectabl e, quadrivalent, contains preservative Dioni Wallace F[employer] MEMBER.POOL TABLE MECHANIC Work Phone: [facility] 05-02-2014 tetanus toxoid, redu chioma diphtheria toxoid, and acellular pertussis vaccine, adsorbed Dioni Wallace [employer] MEMBER.POOL TABLE MECHANIC Work Phone: [facility] Work Phone: 11-09-2010 influenza virus vaccine, unspecified formulation Dioni Wallace [employer] MEMBER.POOL TABLE MECHANIC Work Phone: [facility] 08-31-2008 pneumococcal polysaccharide vaccine, 23 valent Dioni Wallace F[employer] MEMBER.POOL TABLE MECHANIC Work Phone: [facility] Payers Date Payer Category Payer Medicare MMO MEDICARE MMO MEDADVANTAGE O [id number] 2021-Present [phone] [address] [place] [address] [facility] [id number] 2021 Medicare MMO MEDICARE MMO MEDADVANTAGE O [id number] 2021-Present [phone] [address] [place] [address] [facility] [id number] 2021 Unknown [id number] Medicare [id number] Social History Date Type Detail Facility Start: 09-09-2016 End: 06-19-2022 Tobacco smoking status NHIS Ex-smoker [facility] Start: 06-13-1971 End: 06-24-2016 History of tobacco use Current smoker [facility] Start: 06-13-1971 End: 06-24-2016 History of tobacco use Cigarette Smoker [facility] Start: 09-09-2016 End: 03-11-2023 Cigarettes smoked current (pack per day) - Reported 1.5 [facility] Work Phone: Start: 09-09-2016 End: 06-19-2022 Tobacco use and exposure Smokeless tobacco non-user [facility] Start: 12-19-2021 End: 09-09-2023 Alcohol intake Current non-drinker of alcohol (finding) [facility] Start: 09-18-2016 End: 06-19-2022 Tobacco Comment Parent's non smokers. Spouse smokes in home. 12/14/2015 Currently use vape [facility] Start: 1955 Sex Assigned At Not on file [facility] Start: 01-21-2022 End: 09-09-2022 Exposure to SARS-CoV-2 (event) Not sure [facility] Start: 06-18-2022 End: 06-28-2022 Exposure to SARS-CoV-2 (event) Unable to assess [facility] Start: 03-11-2023 End: 05-28-2023 Tobacco use panel [facility] Work Phone: Adult Depression Screening Assessment 6 [facility] Work Phone: Medical Equipment Procedure Code Equipment Code Equipment Origin al Text Equipment Identifier Dates Pacemaker-06/06/2022 [id number] Star t: 06-06-2022 Goals Date Patient Goal Desired Activity /State Personal health goal Clinical Notes 07-21-2016 to 09-09-2023 Sanam Arreola Ma - 09/09/2023 4:49 PM Radha Clemens MD - 09/09/2023 3:00 PM ESTTelephone Encounter - Gayatri Lozoya MSW - 09/02/2023 10:20 AM Eufemia Sheppard RN - 07/09/2022 1:40 PM EDT Note Date & Type Note Facility 09-09-2023 Note HNO ID: [id number] Author: Radha Lebron MD Service: ? Author Type: Physician Type: Progress Notes Filed: 09/09/2023 4:33 PM Note Text: Chief Complaint Patient presents with: F/U 6 Month HPI Gabriel Sanchez is a 68 year old male who presents here today for 6 month follow up. No bowel, Gi, or urinary issues. HTN/Lipid/CAD: Follows with Cardio, Jennyfer Hebert CNP. On current regimen of Plavix 75 mg daily, Losartan 40 mg daily, Lisinopril 5 mg daily, Aspirin 81 mg daily and Toprol xl 50 mg daily. Does have sob due to COPD. Reports couple weeks ago he had an episode of chest pain when coming out of the bathroom, different then what he's had in the past. He followed up with Pulmonary and states that his O2 was in the 70's and since that time he's been on 02. Pt has a pacemaker with routine checks. Wondering if the pain he had was due to the pacemaker. Pt states that he has a f/u with [facility] next week, so hoping to find out more information. COPD: Follows with YOANA Smith. Pt had recent walking test done. Currently taking Combivent Respimat QID prn and Breztri 160-9-4.8 2 puffs bid. Was contacted by SW to help him with assistance in affording the Breztri inhaler through pt assistance. Pt notes that he has not yet started this. Does check O2 at home. Does have Oxygen concentrator that he uses at night. Pt notes that his O2 varies from 85-93 on RA. Generally when he uses O2 his Oxygen stays above 90, he has been on 3-4 L of O2. This was increased at his Pulmonary visit to 6 L. States that [employer] needs a new prescription stating that he needs to use 6 L. Uses Mucinex occasionally, due to coughing stuff up. O2 dries up his sinuses. Pain - Chronic knee pain, makes it difficult to get around. H Depression - Scored high on his depression screening. Reports worse over the past couple weeks. States depression is mostly related to his health issues. Tearful today, but feels his oxygen tank limits him. Has smaller tanks and with needing the increased of 6 L the tank only lasts for about an hour. Pt denies wanting to use medication for depression. Depression screening tool completed and reviewed. Based on score and interview, patient is at risk for depression. Screening tool discussed with patient, and I recommended continued monitoring, as he declined medication and counseling. Skin: concerned about skin cancers; has multiple scattered AKs and other lesions on head and arms. HM - Agreeable to Flu shot today. Agreeable to Covid vaccine. Past medical history, appointments, medications, allergies reviewed. Previous Medical History PAST MEDICAL HISTORY Diagnosis Date Abdominal pain, left lower quadrant Acute myocardial infarction of other specified sites, episode of care unspecified 2003 Myocardial Infarction Asthma Benign neoplasm of rectum and anal canal Chronic hypoxemic respiratory failure (HCC) 08/24/2021 Colon cancer (HCC) 10/20/2010 COPD (chronic obstructive pulmonary disease) ([facility]) [address] Alfonso Coronary artery disease Diverticulitis Diverticulitis of colon (without mention of hemorrhage)(562.11) Hernia Hyperlipidemia, mixed Hypertension Impaired glucose tolerance Malignant neoplasm of colon, unspecified site 10/2010 Rx w Oxaliplatin (stopped for neuropathy) and 5FU PFO (patent foramen ovale) Pneumonia, organism unspecified(486) 2005 inpatient x 1 wk Postsurgical percutaneous transluminal coronary angioplasty status 2004 2 stents Ruptured appendix 06/24/2016 S/P placement of cardiac pacemaker 06/07/2022 Patient underwent implantation of [employer] dual-chamber permanent pacemaker with right atrial and right ventricular septal leads with Dr. Tracy on 06/06/2022. Previous Surgical History PAST SURGICAL HISTORY Procedure Laterality Date CARDIAC CATH N/A 08/14/2018 Cardiac Cath/Stent placement COLON SURGERY HX COLONOSCOPY 09/30/2013 clean anastamosis, nodule at 35cm and 15 cm COLONOSCOPY FLX DX W/COLLJ SPEC WHEN PFRMD 01/30/2018 Colonoscopy COLONOSCOPY W/BIOPSY SINGLE/MULTIPLE 10/31/2010 near obstruction at 33-35cm COLSC FLX W/RMVL OF TUMOR POLYP LESION SNARE TQ 12/22/2000 clean anastamosis, polyp at 12cm EGD W/O BRSH SPEC VARICIES INJ 11/20/2021 repeat PRN F SIGMOID W STENT PLACEMENT 11/05/2010 Lap colectomy HEART SURGERY HX INSJ TUNNELED CTR VAD W/SUBQ PORT AGE 5 YR/> 12/07/2010 Left Subclavian Powerport PAST SURGICAL HISTORY OF 2014 SQ port removal PAST SURGICAL HISTORY OF N/A 06/06/2022 Pacemaker PAST SURGICAL HISTORY OF Bilateral 10/2022 B/L cataract surgery PERC TRANSL COR ANGIO 2004, 2006, 2009 Percutaneous Transluminal Coronary Angio Status SKIN BIOPSY HX Family History FAMILY HISTORY Problem Relation Age of Onset Heart Mother ID other (chf) Mother Heart Father ID Heart disease Brother Heart disease Brother Heart Brother ID Heart Brother ID (more content not included)... [facility] 09-09-2023 Nurse Note Dermatology referral faxed to Arnold Lepe at [phone]. Sanam Arreola Ma documented in this encounter [facility] 09-09-2023 History of Presen t illness Narrative Chief Complaint Patient presents with: F/U 6 Month HPI Gabriel Sanchez is a 68 year old male who presents here today for 6 month follow up. No bowel, Gi, or urinary issues. HTN/Lipid/CAD: Follows with Cardio, Jennyfer Hebert CNP. On current regimen of Plavix 75 mg daily, Losartan 40 mg daily, Lisinopril 5 mg daily, Aspirin 81 mg daily and Toprol xl 50 mg daily. Does have sob due to COPD. Reports couple weeks ago he had an episode of chest pain when coming out of the bathroom, different then what he's had in the past. He followed up with Pulmonary and states that his O2 was in the 70's and since that time he's been on 02. Pt has a pacemaker with routine checks. Wondering if the pain he had was due to the pacemaker. Pt states that he has a f/u with [facility] next week, so hoping to find out more information. COPD: Follows with YOANA Smith. Pt had recent walking test done. Currently taking Combivent Respimat QID prn and Breztri 160-9-4.8 2 puffs bid. Was contacted by [employer] to help him with assistance in affording the Breztri inhaler through pt assistance. Pt notes that he has not yet started this. Does check O2 at home. Does have Oxygen concentrator that he uses at night. Pt notes that his O2 varies from 85-93 on RA. Generally when he uses O2 his Oxygen stays above 90, he has been on 3-4 L of O2. This was increased at his Pulmonary visit to 6 L. States that [employer] needs a new prescription stating that he needs to use 6 L. Uses Mucinex occasionally, due to coughing stuff up. O2 dries up his sinuses. Pain - Chronic knee pain, makes it difficult to get around. H Depression - Scored high on his depression screening. Reports worse over the past couple weeks. States depression is mostly related to his health issues. Tearful today, but feels his oxygen tank limits him. Has smaller tanks and with needing the increased of 6 L the tank only lasts for about an hour. Pt denies wanting to use medication for depression. Depression screening tool completed and reviewed. Based on score and interview, patient is at risk for depression. Screening tool discussed with patient, and I recommended continued monitoring, as he declined medication and counseling. Skin: concerned about skin cancers; has multiple scattered AKs and other lesions on head and arms. HM - Agreeable to Flu shot today. Agreeable to Covid vaccine. Past medical history, appointments, medications, allergies reviewed. Previous Medical History PAST MEDICAL HISTORY Diagnosis Date Abdominal pain, left lower quadrant Acute myocardial infarction of other specified sites, episode of care unspecified 2003 Myocardial Infarction Asthma Benign neoplasm of rectum and anal canal Chronic hypoxemic respiratory failure (HCC) 08/24/2021 Colon cancer ([facility]) 10/20/2010 COPD (chronic obstructive pulmonary disease) ([facility]) [address] Alfonso Coronary artery disease Diverticulitis Diverticulitis of colon (without mention of hemorrhage)(562.11) Hernia Hyperlipidemia, mixed Hypertension Impaired glucose tolerance Malignant neoplasm of colon, unspecified site 10/2010 Rx w Oxaliplatin (stopped for neuropathy) and 5FU PFO (patent foramen ovale) Pneumonia, organism unspecified(486) 2006 inpatient x 1 wk Postsurgical percutaneous transluminal coronary angioplasty status 2003 2 stents Ruptured appendix 06/24/2016 S/P placement of cardiac pacemaker 06/07/2022 Patient underwent implantation of [employer] dual-chamber permanent pacemaker with right atrial and right ventricular septal leads with Dr. Tracy on 06/06/2022. Previous Surgical History PAST SURGICAL HISTORY Procedure Laterality Date CARDIAC CATH N/A 08/14/2018 Cardiac Cath/Stent placement COLON SURGERY HX COLONOSCOPY 09/30/2013 clean anastamosis, nodule at 35cm and 15 cm COLONOSCOPY FLX DX W/COLLJ SPEC WHEN PFRMD 01/30/2018 Colonoscopy COLONOSCOPY W/BIOPSY SINGLE/MULTIPLE 10/31/2010 near obstruction at 33-35cm COLSC FLX W/RMVL OF TUMOR POLYP LESION SNARE TQ 12/22/2000 clean anastamosis, polyp at 12cm EGD W/O BRSH SPEC VARICIES INJ 11/20/2021 repeat PRN F SIGMOID W STENT PLACEMENT 11/05/2010 Lap colectomy HEART SURGERY HX INSJ TUNNELED CTR VAD W/SUBQ PORT AGE 5 YR/> 12/07/2010 Left Subclavian Powerport PAST SURGICAL HISTORY OF 2014 SQ port removal PAST SURGICAL HISTORY OF N/A 06/06/2022 Pacemaker PAST SURGICAL HISTORY OF Bilateral 10/2022 B/L cataract surgery PERC TRANSL COR ANGIO 2003, 2006, 2009 Percutaneous Transluminal Coronary Angio Status SKIN BIOPSY HX Family History FAMILY HISTORY Problem Relation Age of Onset Heart Mother ID other (chf) Mother Heart Father ID Heart disease Brother Heart disease Brother Heart Brother ID Heart Brother ID other (heart murmur) Daughter other (CTS) No Family History Patient Allergies ALLERGIES No Known Allergies Current Medications Current Outpatient Medications on File Prior to Visit Medication Sig ipratropium 20 mcg-albuterol 100 mcg (COMBIVENT RESPIMAT) 20-100 mcg/actuation inhaler Inhale 1 Puff as instructed four times a day as needed. idmaeikamr-npjfgsqu-sxcwijgxnx (BREZTRI) 160-9-4.8 mcg/actuation HFA aerosol inhaler Inhale 2 Puffs as instructed two times a day. clopidogrel (PLAVIX) 75 mg tablet Take 1 tablet by mouth once daily. metoprolol succinate ER (TOPROL XL) 50 mg 24 hr tablet Take 1 tablet by mouth once daily. lovastatin 40 mg tablet Take 1 tablet by mouth daily at bedtime. For cholesterol. lisinopril (ZESTRIL, PRINIVIL) 5 mg tablet Take 1 tablet by mouth once daily. nitroglycerin sublingual (NITROSTAT) 0.4 mg SL tablet Dissolve 1 tablet under the tongue every 5 minutes as needed. aspirin, enteric coated (ASPIRIN, ENTERIC COATED) 81 mg EC tablet Take 1 tablet by mouth once daily. Current Facility-Administered Medications on File Prior to Visit Medication perflutren lipid microspheres 1.3 mL in NaCl (PF) 0.9% 10 mL injection (DEFINITY) sodium chloride 0.9 % (flush) 10 mL (BD POSIFLUSH) Social History Social History Tobacco Use Smoking status: Former Packs/day: 1.50 Years: 45.00 Additional pack years: 0.00 Total pack years: 67.50 Types: Cigarettes Start date: 06/13/1971 Quit date: 06/24/2016 Years since quittin.2 Smokeless tobacco: Never Tobacco comments: Parent's non smokers. Spouse smokes in home. 12/14/2015 Currently use vape Vaping Use Vaping Use: Former Substances: Flavoring, States no tobacco in the device but tastes like tobacco Devices: Pre-filled or refillable cartridge, Refillable tank Substance Use Topics Alcohol use: No Drug use: Not Currently Types: Marijuana EXAM: BP 114/80 (BP Site: Left Arm, BP Position: Sitting, BP Cuff Size: Large Adult) Pulse 88 Resp 18 Wt 110.3 kg (243 lb 3.2 oz) SpO2 93% BMI 36.98 kg/m General Appearance: Well appearing, alert, in no acute distress, well-hydrated, well nourished and Obese. With an oxygen tank. Lungs: Lungs clear to auscultation. No wheezing, rhonchi, rales.. Heart: RRR without murmur, gallop, or rubs. No ectopy. Health Maintenance List Abdominal Aortic Aneurysm Screening Never done Lung Cancer Screening Never done Shingrix Vaccine(1 of 2) Never done RSV Vaccine(1 - 1-dose 60+ series) Never done Advance Directive Discussion Never done Depression Assessment due on 10/20/2022 Colorectal Cancer Screening due on 01/30/2023 Influenza Vaccine(1) due on 06/20/2023 Covid-19 Vaccine( - 2022- season) due on 06/20/2023 Annual PCP Team Chronic Disease Visit due on 03/11/2024 LDL Cholesterol due on 03/24/2024 DTaP,Tdap,Td Vaccine(2 - Td or Tdap) due on 05/02/2024 BP Controlled (<130/80) due on 08/28/2024 Diabetes Screening due on 03/24/2026 Lipid Screening due on 03/24/2028 Alpha-1 Antitrypsin Deficiency Screening Completed Spirometry Completed Hepatitis C Screening Completed Pneumococcal Vaccine: 65+ Completed Data reviewed None ASSESSMENT/PLAN: 1. Essential hypertension - ICD9: 401.9, ICD10: I10 (primary diagnosis) - Controlled - Continue current medications - Recommend home blood pressure monitoring, to bring results to next visit - Encouraged sodium restriction, DASH or Mediterranean diet - Recommend regular aerobic exercise 2. Mixed hyperlipidemia - ICD9: 272.2, ICD10: E78.2 - Cholesterol stable - Continue current medications - Counseled on healthy diet and regular exercise 3. Chronic pain of both knees - ICD9: 719.46, 338.29, ICD10: M25.561, M25.562, G89.29 - Stable 4. 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) - ICD9: 496, ICD10: J44.9 - Cont f/u with Pulmonary - Continue current medication regimen. - Cont using O2 5. Chronic hypoxemic respiratory failure (HCC) - ICD9: 518.83, 799.02, ICD10: J96.11 - Cont using 02 6. S/P placement of cardiac pacemaker - ICD9: V45.01, ICD10: Z95.0 - Cont f/u with check 7. Atherosclerosis of [place] coronary artery of [place] heart without angina pectoris - ICD9: 414.01, ICD10: I25.10 - Continue current medication regimen. - Cont f/u with Cardio 8. Elevated glucose - ICD9: 790.29, ICD10: R73.09 - check labs - COMP METABOLIC PANEL - LIPID PANEL BASIC - HGB A1C 9. Depression, unspecified depression type - ICD9: 311, ICD10: F32.A - Declined medication today 10. Need for influenza vaccination - ICD9: V04.81, ICD10: Z23 - INFLUENZA VACCINE, PRSV FREE, AGE 65+ YR, HIGH DOSE, QUADRIVALENT (FLUZONE HIGH-DOSE) - Receive in office today 11. Need for vaccination - ICD9: V05.9, ICD10: Z23 - [employer] COVID-19 VACCINE ( SEASON) AGE 12+ YR - Receive in office today 12. Skin lesions Refer to Derm - [facility] 6 mo f/u with fasting labs. I agree with the Chief Complaint, ROS, and Past Histories independently gathered by the clinical wan support specialist and the remaining scribed note accurately describes my personal service to the patient. Medical Decision Making: Problems: Moderate: 1+ chronic illnesses with change and 2+ stable chronic illnesses Risk: Moderate: Drug management Medical Decision Making Level: 4 - Moderate Radha Lebron MD The documentation for this note was completed by Sanam Arreola Ma acting as scribe for Radha Lebron MD. September 09, 2023 3:31 PM. Sanam Arreola Ma documented in this encounter [facility] 09-02-2023 Miscellaneous Notes Sw left 2nd message for call to be returned to discuss patient assistance for breztri inhaler. Sw left patient message requesting call back to discuss breztri-Az&Me PAP forms. documented in this encounter [facility] 08-28-2023 Note HNO ID: [id number] Author: Indy Ospina RPFT Service: ? Author Type: Respiratory Therapist Type: Procedures Filed: 08/28/2023 10:14 AM Note Text: RESPIRATORY THERAPY OXIMETRY WITH AMBULATION Oximetry with Ambulation Test for This Encounter O2 Device O2 Adapter NC O2 Flow SpO2% HR Activity Ft Walked (ft) Time (min) Avg Speed (MPH) R/A 82 98 Resting NC 2 86 90 Resting NC 3 90 89 Resting NC 3 86 101 Walking, usual pace 120 1.3 1.05 NC 4 93 85 Resting NC 4 87 105 Walking, usual pace 200 2.3 0.99 NC 5 94 86 Resting NC 5 87 117 Walking, usual pace 250 2.5 1.14 NC 6 94 86 Resting NC 6 90 123 Walking, usual pace 350 3 1.33 General Information Pulse Oximetry Site Total Time Spent O2 Supply Carrier Walking Assistance/Device R Index Finger 40 3 Wheel Walker 3 Wheel Walker NAME: Indy ROGELIO Ospina PATIENT NAME: Gabriel Sanchez DATE: August 28, 2023 TIME: 10:14 AM Comment: [facility] 08-28-2023 Note HNO ID: [id number] Author: Indy Ospina RPFT Service: ? Author Type: Respiratory Therapist Type: Progress Notes Filed: 08/28/2023 10:14 AM Note Text: PULM FUNCTION SMARTBLOCK: Provider: Amalia Pritchard PA-C Assisting Tech: Indy Ospina RPFT Oximetry - Ambulation: 1 [facility] 08-28-2023 Note HNO ID: [id number] Author: Amalia Pritchard PA-C Service: ? Author Type: Physician Mold Preparer Type: Progress Notes Filed: 08/28/2023 10:49 AM Note Text: Patient: Gabriel Sanchez PCP: Radha Lebron MD CC: routine follow-up HPI: Gabriel Sanchez 68 year old male former approximately 70 pack year smoker, quitting in 2015 with PMH significant for moderate COPD (FEV1 52%), chronic hypoxemic respiratory failure (will only use nocturnal oxygen, does not qualify for POC), CHB s/p PPM, CAD, dextrocardia/malrotation, HLD, СВЕТЛАНА non-compliant with CPAP, and colon cancer 2010. Current therapy with Combivent 4 times daily. He was previously on triple therapy Breztri but stopped because it did not make a difference in his symptoms. Today, patient reports daily cough productive of clear sputum. No hemoptysis. Taking Mucinex daily. Frequent wheezing and SOB with exertion. Currently wearing 4 L supplemental oxygen at night. Is currently not wearing it during the day. DME: [employer]. PAST MEDICAL HISTORY Diagnosis Date Abdominal pain, left lower quadrant Acute myocardial infarction of other specified sites, episode of care unspecified 2003 Myocardial Infarction Asthma Benign neoplasm of rectum and anal canal Chronic hypoxemic respiratory failure (HCC) 08/24/2021 Colon cancer (HCC) 10/20/2010 COPD (chronic obstructive pulmonary disease) (HCC) [address] Alfonso Coronary artery disease Diverticulitis Diverticulitis of colon (without mention of hemorrhage)(562.11) Hernia Hyperlipidemia, mixed Hypertension Impaired glucose tolerance Malignant neoplasm of colon, unspecified site 10/2010 Rx w Oxaliplatin (stopped for neuropathy) and 5FU PFO (patent foramen ovale) Pneumonia, organism unspecified(486) 2006 inpatient x 1 wk Postsurgical percutaneous transluminal coronary angioplasty status 2003 2 stents Ruptured appendix 06/24/2016 S/P placement of cardiac pacemaker 06/07/2022 Patient underwent implantation of [employer] dual-chamber permanent pacemaker with right atrial and right ventricular septal leads with Dr. Tracy on 06/06/2022. Allergies: No Known Allergies ipratropium 20 mcg-albuterol 100 mcg (COMBIVENT RESPIMAT) 20-100 mcg/actuation inhalerInhale 1 Puff as instructed four times daily as needed.Disp: 1 EachRfl: 5 clopidogrel (PLAVIX) 75 mg tabletTake 1 tablet by mouth once daily.Disp: 90 tabletRfl: 3 metoprolol succinate ER (TOPROL XL) 50 mg 24 hr tabletTake 1 tablet by mouth once daily.Disp: 90 tabletRfl: 3 lovastatin 40 mg tabletTake 1 tablet by mouth daily at bedtime. For cholesterol.Disp: 90 tabletRfl: 3 lisinopril (ZESTRIL, PRINIVIL) 5 mg tabletTake 1 tablet by mouth once daily.Disp: 90 tabletRfl: 3 nitroglycerin sublingual (NITROSTAT) 0.4 mg SL tabletDissolve 1 tablet under the tongue every 5 minutes as needed.Disp: 1 Bottle of 25Rfl: 6 aspirin, enteric coated (ASPIRIN, ENTERIC COATED) 81 mg EC tabletTake 1 tablet by mouth once daily.Disp: Rfl: Social History Tobacco Use Smoking status: Former Packs/day: 1.50 Years: 45.00 Additional pack years: 0.00 Total pack years: 67.50 Types: Cigarettes Start date: 06/13/1971 Quit date: 06/24/2016 Years since quittin.1 Smokeless tobacco: Never Tobacco comments: Parent's non smokers. Spouse smokes in home. 12/14/2015 Currently use vape Vaping Use Vaping Use: Former Substances: Flavoring, States no tobacco in the device but tastes like tobacco Devices: Pre-filled or refillable cartridge, Refillable tank Substance Use Topics Alcohol use: No Drug use: Not Currently Types: Marijuana Family History Problem Relation Age of Onset Heart Mother ID other (chf) Mother Heart Father ID Heart disease Brother Heart disease Brother Heart Brother ID Heart Brother ID other (heart murmur) Daughter other (CTS) No Family History PAST SURGICAL HISTORY Procedure Laterality Date CARDIAC CATH N/A 08/14/2018 Cardiac Cath/Stent placement COLON SURGERY HX COLONOSCOPY 09/30/2013 clean anastamosis, nodule at 35cm and 15 cm COLONOSCOPY FLX DX W/COLLJ SPEC WHEN PFRMD 01/30/2018 Colonoscopy COLONOSCOPY W/BIOPSY SINGLE/MULTIPLE 10/31/2010 near obstruction at 33-35cm COLSC FLX W/RMVL OF TUMOR POLYP LESION SNARE TQ 12/22/2000 clean anastamosis, polyp at 12cm EGD W/O BRSH SPEC VARICIES INJ 11/20/2021 repeat PRN F SIGMOID W STENT PLACEMENT 11/05/2010 Lap colectomy HEART SURGERY HX INSJ TUNNELED CTR VAD W/SUBQ PORT AGE 5 YR/> 12/07/2010 Left Subclavian Powerport PAST SURGICAL HISTORY OF 2014 SQ port removal PAST SURGICAL HISTORY OF N/A 06/06/2022 Pacemaker PAST SURGICAL HISTORY OF Bilateral 10/2022 B/L cataract surgery PERC TRANSL COR ANGIO 2003, 2006, 2009 Percutaneous Transluminal Coronary Angio Status SKIN BIOPSY HX I reviewed the past medical history, family history, social history and surgical history with changes noted above and upd (more content not included)... [facility] 08-28-2023 Procedure note Associated Ord er(s): OXIMETRY WITH AMBULATION RESPIRATORY THERAPY OXIMETRY WITH AMBULATION Oximetry with Ambulation Test for This Encounter O2 Device O2 Adapter NC O2 Flow SpO2% HR Activity Ft Walked (ft) Time (min) Avg Speed (MPH) R/A 82 98 Resting NC 2 86 90 Resting NC 3 90 89 Resting NC 3 86 101 Walking, usual pace 120 1.3 1.05 NC 4 93 85 Resting NC 4 87 105 Walking, usual pace 200 2.3 0.99 NC 5 94 86 Resting NC 5 87 117 Walking, usual pace 250 2.5 1.14 NC 6 94 86 Resting NC 6 90 123 Walking, usual pace 350 3 1.33 General Information Pulse Oximetry Site Total Time Spent O2 Supply Carrier Walking Assistance/Device R Index Finger 40 3 Wheel Walker 3 Wheel Walker NAME: Indy ROGELIO Ospina PATIENT NAME: Gabriel Sanchez DATE: August 28, 2023 TIME: 10:14 AM Comment: documented in this encounter [facility] 08-28-2023 History of Presen t illness Narrative PULM FUNCTION SMARTBLOCK: Provider: Amalia Pritchard PA-C Assisting Tech: Indy Ospina RPFT Oximetry - Ambulation: 1 documented in this encounter [facility] 08-28-2023 History of Presen t illness Narrative Images from the original note were not included. Patient: Gabriel Sanchez PCP: Radha Lebron MD CC: routine follow-up HPI: Gabriel Sanchez 68 year old male former approximately 70 pack year smoker, quitting in 2015 with PMH significant for moderate COPD (FEV1 52%), chronic hypoxemic respiratory failure (will only use nocturnal oxygen, does not qualify for POC), CHB s/p PPM, CAD, dextrocardia/malrotation, HLD, СВЕТЛАНА non-compliant with CPAP, and colon cancer 2010. Current therapy with Combivent 4 times daily. He was previously on triple therapy Breztri but stopped because it did not make a difference in his symptoms. Today, patient reports daily cough productive of clear sputum. No hemoptysis. Taking Mucinex daily. Frequent wheezing and SOB with exertion. Currently wearing 4 L supplemental oxygen at night. Is currently not wearing it during the day. DME: [employer]. PAST MEDICAL HISTORY Diagnosis Date Abdominal pain, left lower quadrant Acute myocardial infarction of other specified sites, episode of care unspecified 2003 Myocardial Infarction Asthma Benign neoplasm of rectum and anal canal Chronic hypoxemic respiratory failure (HCC) 08/24/2021 Colon cancer (HCC) 10/20/2010 COPD (chronic obstructive pulmonary disease) (HCC) [address] Alfonso Coronary artery disease Diverticulitis Diverticulitis of colon (without mention of hemorrhage)(562.11) Hernia Hyperlipidemia, mixed Hypertension Impaired glucose tolerance Malignant neoplasm of colon, unspecified site 10/2010 Rx w Oxaliplatin (stopped for neuropathy) and 5FU PFO (patent foramen ovale) Pneumonia, organism unspecified(486) 2006 inpatient x 1 wk Postsurgical percutaneous transluminal coronary angioplasty status 2003 2 stents Ruptured appendix 06/24/2016 S/P placement of cardiac pacemaker 06/07/2022 Patient underwent implantation of [employer] dual-chamber permanent pacemaker with right atrial and right ventricular septal leads with Dr. Tracy on 06/06/2022. Allergies: No Known Allergies ipratropium 20 mcg-albuterol 100 mcg (COMBIVENT RESPIMAT) 20-100 mcg/actuation inhaler^Inhale 1 Puff as instructed four times daily as needed.^Disp: 1 Each^Rfl: 5 clopidogrel (PLAVIX) 75 mg tablet^Take 1 tablet by mouth once daily.^Disp: 90 tablet^Rfl: 3 metoprolol succinate ER (TOPROL XL) 50 mg 24 hr tablet^Take 1 tablet by mouth once daily.^Disp: 90 tablet^Rfl: 3 lovastatin 40 mg tablet^Take 1 tablet by mouth daily at bedtime. For cholesterol.^Disp: 90 tablet^Rfl: 3 lisinopril (ZESTRIL, PRINIVIL) 5 mg tablet^Take 1 tablet by mouth once daily.^Disp: 90 tablet^Rfl: 3 nitroglycerin sublingual (NITROSTAT) 0.4 mg SL tablet^Dissolve 1 tablet under the tongue every 5 minutes as needed.^Disp: 1 Bottle of 25^Rfl: 6 aspirin, enteric coated (ASPIRIN, ENTERIC COATED) 81 mg EC tablet^Take 1 tablet by mouth once daily.^Disp: ^Rfl: Social History Tobacco Use Smoking status: Former Packs/day: 1.50 Years: 45.00 Additional pack years: 0.00 Total pack years: 67.50 Types: Cigarettes Start date: 06/13/1971 Quit date: 06/24/2016 Years since quittin.1 Smokeless tobacco: Never Tobacco comments: Parent's non smokers. Spouse smokes in home. 12/14/2015 Currently use vape Vaping Use Vaping Use: Former Substances: Flavoring, States no tobacco in the device but tastes like tobacco Devices: Pre-filled or refillable cartridge, Refillable tank Substance Use Topics Alcohol use: No Drug use: Not Currently Types: Marijuana Family History Problem Relation Age of Onset Heart Mother ID other (chf) Mother Heart Father ID Heart disease Brother Heart disease Brother Heart Brother ID Heart Brother ID other (heart murmur) Daughter other (CTS) No Family History PAST SURGICAL HISTORY Procedure Laterality Date CARDIAC CATH N/A 08/14/2018 Cardiac Cath/Stent placement COLON SURGERY HX COLONOSCOPY 09/30/2013 clean anastamosis, nodule at 35cm and 15 cm COLONOSCOPY FLX DX W/COLLJ SPEC WHEN PFRMD 01/30/2018 Colonoscopy COLONOSCOPY W/BIOPSY SINGLE/MULTIPLE 10/31/2010 near obstruction at 33-35cm COLSC FLX W/RMVL OF TUMOR POLYP LESION SNARE TQ 12/22/2000 clean anastamosis, polyp at 12cm EGD W/O BRSH SPEC VARICIES INJ 11/20/2021 repeat PRN F SIGMOID W STENT PLACEMENT 11/05/2010 Lap colectomy HEART SURGERY HX INSJ TUNNELED CTR VAD W/SUBQ PORT AGE 5 YR/> 12/07/2010 Left Subclavian Powerport PAST SURGICAL HISTORY OF 2014 SQ port removal PAST SURGICAL HISTORY OF N/A 06/06/2022 Pacemaker PAST SURGICAL HISTORY OF Bilateral 10/2022 B/L cataract surgery PERC TRANSL COR ANGIO 2003, 2006, 2009 Percutaneous Transluminal Coronary Angio Status SKIN BIOPSY HX I reviewed the past medical history, family history, social history and surgical history with changes noted above and updated in EMR. IMMUNIZATIONS Prevnar - 2018 Pneumovax - 2020 Influenza - xx COVID-19 - most recent 01/2022 ROS: CONSTITUTIONAL: No fevers, chills, nightsweats, unintended weight loss or weight gain HEENT: Positive nasal congestion/sinus symptoms. EYES: No diplopia or blurry vision CARDIOVASCULAR: No chest pain, palpitations, orthopnea, PND, edema. PULM: See HPI GI: No dysphagia, no problematic reflux INTEGUMENTARY: No new skin changes or rashes PHYSICAL EXAMINATION: BP 124/72 Pulse 74 Resp 18 SpO2 89% O2: RA Gen: No acute distress. Cooperative with examination. HEENT: Normocephalic. Sclera, conjunctiva clear. Oral hygeine and dentition poor. No thrush. Resp: No stridor, accessory respiratory muscle use, supra-sternal or intercostal retractions. No wheezes, crackles. CV: Regular rythm. Heart tones normal. Radial pulses normal. MSK: No kyphoscoliosis. Ext: Warm and well perfused. No clubbing, cyanosis. Mild bilateral lower extremity edema. Neuro: Mental status normal. Affect normal. No tremor. DATA: Oximetry, 08/28/2023 Oximetry with Ambulation Test for This Encounter O2 Device O2 Adapter NC O2 Flow SpO2% HR Activity Ft Walked (ft) Time (min) Avg Speed (MPH) R/A 82 98 Resting NC 2 86 90 Resting NC 3 90 89 Resting NC 3 86 101 Walking, usual pace 120 1.3 1.05 NC 4 93 85 Resting NC 4 87 105 Walking, usual pace 200 2.3 0.99 NC 5 94 86 Resting NC 5 87 117 Walking, usual pace 250 2.5 1.14 NC 6 94 86 Resting NC 6 90 123 Walking, usual pace 350 3 1.33 PFT 08/2022: Review of spirometry shows moderate obstruction and normal diffusing capacity, unchanged from previous testing Imaging / Diagnostic Studies: DATE OF EXAM: Jun 11 2022 10:18PM [facility] 0540 - CT CHEST W IVCON PE / Comparison: No relevant prior studies available. RESULT: Limitations: None. Evaluation for thromboembolic disease: - Right heart chambers: No thromboembolic disease. - Main pulmonary arteries: No thromboembolic disease. - Lobar pulmonary arteries: No thromboembolic disease. - Segmental pulmonary arteries: No thromboembolic disease. - Subsegmental pulmonary arteries: No thromboembolic disease. - Additional pulmonary artery findings: The main pulmonary artery is normal in caliber. Lines, tubes, and devices: A dual-lead left-sided transvenous pacemaker seen. The leads appear appropriately positioned. Lung parenchyma and airways: No consolidation. Minimal bibasilar atelectasis is noted. No suspicious pulmonary nodule. The central airways are patent. Pleural space: No pleural effusion. No pleural thickening. Lower neck, lymph nodes, and mediastinum: The imaged thyroid gland is normal. No lymphadenopathy in the supraclavicular, axillary, mediastinal, or hilar regions. Heart, pericardium, and thoracic vessels: The thoracic aorta is normal in caliber. The cardiac chambers are normal in size. No coronary artery atherosclerotic calcifications are noted, although the study is not optimized for coronary assessment. No pericardial effusion or thickening. Bones and soft tissues: No destructive bone lesion. Chest wall is unremarkable. Upper abdomen: No abnormality in the imaged upper abdomen. Echocardiogram, 05/2023 CONCLUSIONS: - Technically difficult exam due to body habitus. - Exam indication: Shortness of Breath - The left ventricle is normal in size. Left ventricular systolic function is mildly decreased. EF = 50 5% (visual est.) Left ventricular diastolic function was not evaluated due to E/a fusion. - The right ventricle is normal in size. Right ventricular systolic function is normal. - There are no significant valvular abnormalities. - The visualized aorta is dilated with a maximal dimension of 4.1 cm. - Limited apical views. Definity unavailable. - Parasternal views located on right side. - Exam was compared with the prior echocardiographic exam performed on 11/26/2021, aortic size is increased to 4.1 cm, otherwise no significant change is noted. SSMENT/PLAN: 1. 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) - ICD9: 496, ICD10: J44.9 (primary diagnosis) Patient would like to try Breztri again. However, it is expensive despite being preferred on formulary. Will reach out to social work to determine if patient qualifies for prescription assistance. Combivent inhaler, 2 inhalations 10-15 minutes prior to activities associated with shortness of breath, and as needed for rescue relief of shortness of breath or wheezing, up to 4 times daily. - OXIMETRY - NOCTURNAL 2. Chronic hypoxemic respiratory failure (HCC) - ICD9: 518.83, 799.02, ICD10: J96.11 Based on ambulatory oximetry today, patient is requiring 3L supplemental oxygen at rest and 6L with exertion. He is unsure if his tanks at home will provide 6L. Results sent to [employer]. Will check nocturnal on 4L. - OXIMETRY - NOCTURNAL 3. Former cigarette smoker - ICD9: V15.82, ICD10: Z87.891 Former [id number] smoker with sequelae of emphysema. Recommending low-dose chest CT for cancer screening but patient is declining at this time. Portions of this documentation were copied and pasted from previous office visit notes in order to provide a cohesive continuity of the history. The note has been reviewed and edited and updated as necessary. Amalia Pritchard PA-C documented in this encounter [facility] 08-28-2023 Nurse Note Intake information documented in the prior visit with ROGELIO Winchester today. documented in this encounter [facility] 06-27-2023 Miscellaneous Notes Detailed message left on pt identified VM that priyanka gurrola is ready for machine pecan picker at [facility]. Fannie Candelario Ma Completed. Dioni Gonsalez APRN.POOL TABLE MECHANIC Pt is requesting to get a handicap parking permit for his car. Could you please advise? Linda Wilks PSS documented in this encounter [facility] 06-18-2023 Miscellaneous Notes Nocturnal Oximetry, 3L, 06/10/2023. Recording interval: 8:39:44 High pulse: 105 Low pulse: 53 Highest spO2: 91% Lowest spO2: 66% Time with spO2 < 88%: 479 minutes I have received and reviewed the outside records noted above. Amalia Pritchard PA-C [facility] [place] documented in this encounter [facility] 05-29-2023 Miscellaneous Notes AGATA: 05/28/23 Patient phones requesting refills as follows: Requested Prescriptions Pending Prescriptions Disp Refills ipratropium 20 mcg-albuterol 100 mcg (COMBIVENT RESPIMAT) 20-100 mcg/actuation inhaler 1 Each 5 Sig: Inhale 1 Puff as instructed four times daily as needed. Please review and advise. Sunitha Chirinos LPN documented in this encounter [facility] 05-28-2023 Note HNO ID: [id number] Author: Amalia Pritchard PA-C Service: ? Author Type: Physician Mold Preparer Type: Progress Notes Filed: 05/28/2023 2:31 PM Note Text: Patient: Gabriel Sanchez PCP: Radha Lebron MD CC: follow up HPI: Gabriel Sanchez 67 year old male former approximately 70 pack year smoker, quitting in 2015 with PMH significant for moderate COPD (FEV1 52%), chronic hypoxemic respiratory failure (will only use nocturnal oxygen, does not qualify for POC), CHB s/p PPM, CAD, dextrocardia/malrotation, HLD, СВЕТЛАНА non-compliant with CPAP, and colon cancer 2010. Current therapy with Breztri and Combivent as needed. Today, patient reports he feels lousy and is going to quit taking his Breztri since it isn't helping. Daily cough productive of clear sputum. No hemoptysis. Occasional wheezing relieved with Combivent. Exertional dyspnea with minimal effort. At last office visit 03/[address] Blake he was started on a prednisone taper which did not improve his symptoms. No lower extremity edema. No fevers, chills or night sweats. Currently wearing 4-5 L supplemental oxygen at night. Is not consistently wearing supplemental oxygen during the day. DME: [employer]. PAST MEDICAL HISTORY Diagnosis Date Abdominal pain, left lower quadrant Acute myocardial infarction of other specified sites, episode of care unspecified 2003 Myocardial Infarction Asthma Benign neoplasm of rectum and anal canal Chronic hypoxemic respiratory failure (HCC) 08/24/2021 Colon cancer (HCC) 10/20/2010 COPD (chronic obstructive pulmonary disease) ([facility]) [address] Alfonso Coronary artery disease Diverticulitis Diverticulitis of colon (without mention of hemorrhage)(562.11) Hernia Hyperlipidemia, mixed Hypertension Impaired glucose tolerance Malignant neoplasm of colon, unspecified site 10/2010 Rx w Oxaliplatin (stopped for neuropathy) and 5FU PFO (patent foramen ovale) Pneumonia, organism unspecified(486) 2006 inpatient x 1 wk Postsurgical percutaneous transluminal coronary angioplasty status 2003 2 stents Ruptured appendix 06/24/2016 S/P placement of cardiac pacemaker 06/07/2022 Patient underwent implantation of [employer] dual-chamber permanent pacemaker with right atrial and right ventricular septal leads with Dr. Tracy on 06/06/2022. Allergies: No Known Allergies predniSONE (DELTASONE) 10 mg tablet Take 4 daily for three days, then 3 daily for three days, then 2 daily for three days, then one daily for three days. xekdvpgqke-fvuijndl-wofekdrwok (BREZTRI AEROSPHERE) 160-9-4.8 mcg/actuation HFA aerosol inhaler Inhale 2 Puffs as instructed twice daily. clopidogrel (PLAVIX) 75 mg tablet Take 1 tablet by mouth once daily. metoprolol succinate ER (TOPROL XL) 50 mg 24 hr tablet Take 1 tablet by mouth once daily. ipratropium 20 mcg-albuterol 100 mcg (COMBIVENT RESPIMAT) 20-100 mcg/actuation inhaler Inhale 1 Puff as instructed four times daily as needed. lovastatin 40 mg tablet Take 1 tablet by mouth daily at bedtime. For cholesterol. lisinopril (ZESTRIL, PRINIVIL) 5 mg tablet Take 1 tablet by mouth once daily. acetaminophen (TYLENOL) 500 mg tablet Take 500 mg by mouth every 8 hours as needed. (Patient not taking: Reported on 03/24/2023) nitroglycerin sublingual (NITROSTAT) 0.4 mg SL tablet Dissolve 1 tablet under the tongue every 5 minutes as needed. aspirin, enteric coated (ASPIRIN, ENTERIC COATED) 81 mg EC tablet Take 1 tablet by mouth once daily. Social History Tobacco Use Smoking status: Former Packs/day: 1.50 Years: 45.00 Total pack years: 67.50 Types: Cigarettes Start date: 06/13/1971 Quit date: 06/24/2016 Years since quittin.9 Smokeless tobacco: Never Tobacco comments: Parent's non smokers. Spouse smokes in home. 12/14/2015 Currently use vape Vaping Use Vaping Use: current everyday user Substances: Flavoring, States no tobacco in the device but tastes like tobacco Devices: Pre-filled or refillable cartridge, Refillable tank Substance Use Topics Alcohol use: No Drug use: No Family History Problem Relation Age of Onset Heart Mother ID other (chf) Mother Heart Father ID Heart disease Brother Heart disease Brother Heart Brother ID Heart Brother ID other (heart murmur) Daughter other (CTS) No Family History PAST SURGICAL HISTORY Procedure Laterality Date CARDIAC CATH N/A 08/14/2018 Cardiac Cath/Stent placement COLON SURGERY HX COLONOSCOPY 09/30/2013 clean anastamosis, nodule at 35cm and 15 cm COLONOSCOPY FLX DX W/COLLJ SPEC WHEN PFRMD 01/30/2018 Colonoscopy COLONOSCOPY W/BIOPSY SINGLE/MULTIPLE 10/31/2010 near obstruction at 33-35cm COLSC FLX W/RMVL OF TUMOR POLYP LESION SNARE TQ 12/22/2000 clean anastamosis, polyp at 12cm EGD W/O BRSH SPEC VARICIES INJ 11/20/2021 repeat PRN F SIGMOID W STENT PLACEMENT 11/05/2010 Lap colectomy HEART SURGERY HX INSJ TUNNELED CTR VAD W/SUBQ PORT AGE (more content not included)... [facility] 05-28-2023 History of Presen t illness Narrative Images from the original note were not included. Patient: Gabriel Sanchez PCP: Radha Lebron MD CC: follow up HPI: Gabriel Sanchez 67 year old male former approximately 70 pack year smoker, quitting in 2015 with PMH significant for moderate COPD (FEV1 52%), chronic hypoxemic respiratory failure (will only use nocturnal oxygen, does not qualify for POC), CHB s/p PPM, CAD, dextrocardia/malrotation, HLD, СВЕТЛАНА non-compliant with CPAP, and colon cancer 2010. Current therapy with Breztri and Combivent as needed. Today, patient reports he feels lousy and is going to quit taking his Breztri since it isn't helping. Daily cough productive of clear sputum. No hemoptysis. Occasional wheezing relieved with Combivent. Exertional dyspnea with minimal effort. At last office visit 03/[address] Blake he was started on a prednisone taper which did not improve his symptoms. No lower extremity edema. No fevers, chills or night sweats. Currently wearing 4-5 L supplemental oxygen at night. Is not consistently wearing supplemental oxygen during the day. DME: [employer]. PAST MEDICAL HISTORY Diagnosis Date Abdominal pain, left lower quadrant Acute myocardial infarction of other specified sites, episode of care unspecified 2003 Myocardial Infarction Asthma Benign neoplasm of rectum and anal canal Chronic hypoxemic respiratory failure ([facility]) 08/24/2021 Colon cancer ([facility]) 10/20/2010 COPD (chronic obstructive pulmonary disease) ([facility]) [address] Alfonso Coronary artery disease Diverticulitis Diverticulitis of colon (without mention of hemorrhage)(562.11) Hernia Hyperlipidemia, mixed Hypertension Impaired glucose tolerance Malignant neoplasm of colon, unspecified site 10/2010 Rx w Oxaliplatin (stopped for neuropathy) and 5FU PFO (patent foramen ovale) Pneumonia, organism unspecified(486) 2005 inpatient x 1 wk Postsurgical percutaneous transluminal coronary angioplasty status 2003 2 stents Ruptured appendix 06/24/2016 S/P placement of cardiac pacemaker 06/07/2022 Patient underwent implantation of [employer] dual-chamber permanent pacemaker with right atrial and right ventricular septal leads with Dr. Tracy on 06/06/2022. Allergies: No Known Allergies predniSONE (DELTASONE) 10 mg tablet Take 4 daily for three days, then 3 daily for three days, then 2 daily for three days, then one daily for three days. dazcszusde-fwufktxi-adzdxgrloc (BREZTRI AEROSPHERE) 160-9-4.8 mcg/actuation HFA aerosol inhaler Inhale 2 Puffs as instructed twice daily. clopidogrel (PLAVIX) 75 mg tablet Take 1 tablet by mouth once daily. metoprolol succinate ER (TOPROL XL) 50 mg 24 hr tablet Take 1 tablet by mouth once daily. ipratropium 20 mcg-albuterol 100 mcg (COMBIVENT RESPIMAT) 20-100 mcg/actuation inhaler Inhale 1 Puff as instructed four times daily as needed. lovastatin 40 mg tablet Take 1 tablet by mouth daily at bedtime. For cholesterol. lisinopril (ZESTRIL, PRINIVIL) 5 mg tablet Take 1 tablet by mouth once daily. acetaminophen (TYLENOL) 500 mg tablet Take 500 mg by mouth every 8 hours as needed. (Patient not taking: Reported on 03/24/2023) nitroglycerin sublingual (NITROSTAT) 0.4 mg SL tablet Dissolve 1 tablet under the tongue every 5 minutes as needed. aspirin, enteric coated (ASPIRIN, ENTERIC COATED) 81 mg EC tablet Take 1 tablet by mouth once daily. Social History Tobacco Use Smoking status: Former Packs/day: 1.50 Years: 45.00 Total pack years: 67.50 Types: Cigarettes Start date: 06/13/1971 Quit date: 06/24/2016 Years since quittin.9 Smokeless tobacco: Never Tobacco comments: Parent's non smokers. Spouse smokes in home. 12/14/2015 Currently use vape Vaping Use Vaping Use: current everyday user Substances: Flavoring, States no tobacco in the device but tastes like tobacco Devices: Pre-filled or refillable cartridge, Refillable tank Substance Use Topics Alcohol use: No Drug use: No Family History Problem Relation Age of Onset Heart Mother ID other (chf) Mother Heart Father ID Heart disease Brother Heart disease Brother Heart Brother ID Heart Brother ID other (heart murmur) Daughter other (CTS) No Family History PAST SURGICAL HISTORY Procedure Laterality Date CARDIAC CATH N/A 08/14/2018 Cardiac Cath/Stent placement COLON SURGERY HX COLONOSCOPY 09/30/2013 clean anastamosis, nodule at 35cm and 15 cm COLONOSCOPY FLX DX W/COLLJ SPEC WHEN PFRMD 01/30/2018 Colonoscopy COLONOSCOPY W/BIOPSY SINGLE/MULTIPLE 10/31/2010 near obstruction at 33-35cm COLSC FLX W/RMVL OF TUMOR POLYP LESION SNARE TQ 12/22/2000 clean anastamosis, polyp at 12cm EGD W/O BRSH SPEC VARICIES INJ 11/20/2021 repeat PRN F SIGMOID W STENT PLACEMENT 11/05/2010 Lap colectomy HEART SURGERY HX INSJ TUNNELED CTR VAD W/SUBQ PORT AGE 5 YR/> 12/07/2010 Left Subclavian Powerport PAST SURGICAL HISTORY OF 2014 SQ port removal PAST SURGICAL HISTORY OF N/A 06/06/2022 Pacemaker PAST SURGICAL HISTORY OF Bilateral 10/2022 B/L cataract surgery PERC TRANSL COR ANGIO 2003, 2006, 2009 Percutaneous Transluminal Coronary Angio Status SKIN BIOPSY HX I reviewed the past medical history, family history, social history and surgical history with changes noted above and updated in EMR. ROS: CONSTITUTIONAL: No fevers, chills, nightsweats, unintended weight loss or weight gain HEENT: Positive nasal congestion/sinus symptoms. No history of seasonal allergies. Rhinorrhea EYES: No diplopia or blurry vision, tearing CARDIOVASCULAR: No chest pain, palpitations, orthopnea, PND, edema. PULM: See HPI GI: Intermittent dysphagia, no problematic reflux INTEGUMENTARY: No new skin changes or rashes PHYSICAL EXAMINATION: BP 120/80 (BP Site: Right Arm, BP Position: Sitting, BP Cuff Size: Regular Adult) Pulse 90 Resp 14 Ht 172.7 cm (5' 8 ) Wt 109.8 kg (242 lb) SpO2 91% BMI 36.80 kg/m O2: RA Gen: No acute distress. Cooperative with examination. HEENT: Normocephalic. Sclera, conjunctiva clear. Oral hygeine and dentition poor. No thrush. Resp: No stridor, accessory respiratory muscle use, supra-sternal or intercostal retractions. No wheezes, crackles. CV: Regular rythm. Heart tones normal. Radial pulses normal. Abd: Non distended. MSK: No kyphoscoliosis. Ext: Warm and well perfused. No clubbing, cyanosis. Trace bilateral edema. Skin: Scaling skin. No ecchymoses. Neuro: Mental status normal. Affect normal. No tremor. DATA: RESPIRATORY THERAPY OXIMETRY WITH AMBULATION Oximetry with Ambulation Test for This Encounter O2 Device O2 Adapter NC O2 Flow SpO2% HR Activity Ft Walked (ft) Time (min) Avg Speed (MPH) R/A 84 88 Resting NC 2 88 88 Resting NC 3 92 80 Resting NC 3 86 114 Walking, usual pace 230 1.8 1.45 NC 4 93 76 Resting NC 4 89 116 Walking, usual pace 400 3 1.52 PFT 08/2022: Review of spirometry shows moderate obstruction and normal diffusing capacity, unchanged from previous testing Imaging / Diagnostic Studies: DATE OF EXAM: Jun 11 2022 10:18PM [facility] 0540 - CT CHEST W IVCON PE / Comparison: No relevant prior studies available. RESULT: Limitations: None. Evaluation for thromboembolic disease: - Right heart chambers: No thromboembolic disease. - Main pulmonary arteries: No thromboembolic disease. - Lobar pulmonary arteries: No thromboembolic disease. - Segmental pulmonary arteries: No thromboembolic disease. - Subsegmental pulmonary arteries: No thromboembolic disease. - Additional pulmonary artery findings: The main pulmonary artery is normal in caliber. Lines, tubes, and devices: A dual-lead left-sided transvenous pacemaker seen. The leads appear appropriately positioned. Lung parenchyma and airways: No consolidation. Minimal bibasilar atelectasis is noted. No suspicious pulmonary nodule. The central airways are patent. Pleural space: No pleural effusion. No pleural thickening. Lower neck, lymph nodes, and mediastinum: The imaged thyroid gland is normal. No lymphadenopathy in the supraclavicular, axillary, mediastinal, or hilar regions. Heart, pericardium, and thoracic vessels: The thoracic aorta is normal in caliber. The cardiac chambers are normal in size. No coronary artery atherosclerotic calcifications are noted, although the study is not optimized for coronary assessment. No pericardial effusion or thickening. Bones and soft tissues: No destructive bone lesion. Chest wall is unremarkable. Upper abdomen: No abnormality in the imaged upper abdomen. ASSESSMENT/PLAN: 1. 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) - ICD9: 496, ICD10: J44.9 (primary diagnosis) Continue Breztri with as needed Combivent. 2. Dyspnea and respiratory abnormalities - ICD9: 786.09, ICD10: R06.00, R06.89 Most likely multi-factorial, including COPD, chronic hypoxemia not compliant with supplemental oxygen and possible pulmonary HTN. Patient has know СВЕТЛАНА and does not wear his CPAP. - ECHO - PERFLUTREN LIPID MICROSPHERES 1.1 MG/ML INJECTION IN NS 10 ML - SODIUM CHLORIDE 0.9 % (FLUSH) INJECTION SYRINGE - OXIMETRY - NOCTURNAL 3. Chronic hypoxemic respiratory failure (HCC) - ICD9: 518.83, 799.02, ICD10: J96.11 Patient is compliant with nocturnal use of supplemental oxygen. Does not have his portable oxygen in the office today and states he does not wear it at home with exertion. - OXIMETRY - NOCTURNAL - OXIMETRY WITH AMBULATION 4. СВЕТЛАНА (obstructive sleep apnea) - ICD9: 327.23, ICD10: G47.33 Non-compliant with PAP therapy. 5. Former cigarette smoker - ICD9: V15.82, ICD10: Z87.891 Former [id number] smoker with sequelae of emphysema. Recommending low-dose chest CT for cancer screening but patient declines Portions of this documentation were copied and pasted from previous office visit notes in order to provide a cohesive continuity of the history. The note has been reviewed and edited and updated as necessary. Amalia Pritchard PA-C documented in this encounter [facility] 03-24-2023 Note HNO ID: [id number] Author: Camila Blake MD Service: ? Author Type: Physician Type: Progress Notes Filed: 03/24/2023 4:07 PM Note Text: . [facility] [place] Note Patient name: Gabriel Sanchez PCP: Radha Lebron MD CC: COPD HPI: Gabriel Sanchez 67 year old male former approximately 70 pack year smoker, quitting in 2015 with PMH significant for moderate COPD (FEV1 52%), chronic hypoxemic respiratory failure (will only use nocturnal oxygen, does not qualify for POC), CHB s/p PPM, CAD, dextrocardia/malrotation, HLD, СВЕТЛАНА non-compliant with CPAP, colon cancer [address] Cortez, new to me. Current COPD treatment with with Combivent as needed and recently started on Breztri 1 month ago (was supposed to be on Breztri but was not using due to cost of medication). Today he states he has been having episodes not responsive to Combivent or wearing his oxygen. He has rhinorrhea with drainage then coughing jags with expectoration of clear mucus. He feels as if he is unable to breathe. No wheezing noted. No acid reflux symptoms. Trial of OTC Claritin not helpful. When speaking to Mr. Sanchez regarding potential etiologies for his symptoms, frequent comment I disagree with you . DME: [employer] 3-4 L COPD Assessment Test I never cough 0 1 2 3 4 5 I cough all the time; Score 4 I have no phlegm 0 1 2 3 4 5 My chest is completely full of phlegm; Score 5 My chest does not feel tight at all 0 1 2 3 4 5 My chest chest feels very tight; Score 3 When I walk up a hill or one flight of stairs I am not breathless 0 1 2 3 4 5 When I walk up a hill or one flight or stairs I am very breathless; Score 5 I am not limited doing any activities at home 0 1 2 3 4 5 I am very limited doing activities at home; Score 5 I am confident leaving my home despite my lung condition 0 1 2 3 4 5 I am not at all confident leaving my home because of my lung condition; Score 4 I sleep soundly 0 1 2 3 4 5 don't sleep soundly because of my lungs; Score 4 I have lots of energy 0 1 2 3 4 5 I have no energy at all; Score 5 Total Score: 35 DATA: RESPIRATORY THERAPY OXIMETRY WITH AMBULATION Oximetry with Ambulation Test for This Encounter O2 Device O2 Adapter NC O2 Flow SpO2% HR Activity Ft Walked (ft) Time (min) Avg Speed (MPH) R/A 84 88 Resting NC 2 88 88 Resting NC 3 92 80 Resting NC 3 86 114 Walking, usual pace 230 1.8 1.45 NC 4 93 76 Resting NC 4 89 116 Walking, usual pace 400 3 1.52 PFT 08/2022: Review of spirometry shows moderate obstruction and normal diffusing capacity, unchanged from previous testing Imaging / Diagnostic Studies: DATE OF EXAM: Jun 11 2022 10:18PM [facility] 0540 - CT CHEST W IVCON PE / Comparison: No relevant prior studies available. RESULT: Limitations: None. Evaluation for thromboembolic disease: - Right heart chambers: No thromboembolic disease. - Main pulmonary arteries: No thromboembolic disease. - Lobar pulmonary arteries: No thromboembolic disease. - Segmental pulmonary arteries: No thromboembolic disease. - Subsegmental pulmonary arteries: No thromboembolic disease. - Additional pulmonary artery findings: The main pulmonary artery is normal in caliber. Lines, tubes, and devices: A dual-lead left-sided transvenous pacemaker seen. The leads appear appropriately positioned. Lung parenchyma and airways: No consolidation. Minimal bibasilar atelectasis is noted. No suspicious pulmonary nodule. The central airways are patent. Pleural space: No pleural effusion. No pleural thickening. Lower neck, lymph nodes, and mediastinum: The imaged thyroid gland is normal. No lymphadenopathy in the supraclavicular, axillary, mediastinal, or hilar regions. Heart, pericardium, and thoracic vessels: The thoracic aorta is normal in caliber. The cardiac chambers are normal in size. No coronary artery atherosclerotic calcifications are noted, although the study is not optimized for coronary assessment. No pericardial effusion or thickening. Bones and soft tissues: No destructive bone lesion. Chest wall is unremarkable. Upper abdomen: No abnormality in the imaged upper abdomen. Review of CT of the chest shows upper lobe predominant emphysema, lower lobe bronchial wall thickening, no suspicious nodules or infiltrates. PAST MEDICAL HISTORY Diagnosis Date Abdominal pain, left lower quadrant Acute myocardial infarction of other specified sites, episode of care unspecified 2003 Myocardial Infarction Asthma Benign neoplasm of rectum and anal canal Chronic hypoxemic respiratory failure (HCC) 08/24/2021 Colon cancer (HCC) 10/20/2010 COPD (chronic obstructive pulmonary disease) ([facility]) [address] Alfonso Coronary artery disease Diverticulitis Diverticulitis of colon (without mention of hemorrhage)(562.11) Hernia Hyperlipidemia, mixed Hypertension Impaired glucose tolerance Malignant neoplasm of co (more content not included)... [facility] 03-24-2023 History of Presen t illness Narrative Images from the original note were not included. . [facility] [place] Note Patient name: Gabriel Sanchez PCP: Radha Lebron MD CC: COPD HPI: Gabriel Sanchez 67 year old male former approximately 70 pack year smoker, quitting in 2015 with PMH significant for moderate COPD (FEV1 52%), chronic hypoxemic respiratory failure (will only use nocturnal oxygen, does not qualify for POC), CHB s/p PPM, CAD, dextrocardia/malrotation, HLD, СВЕТЛАНА non-compliant with CPAP, colon cancer [address] Cortez, new to me. Current COPD treatment with with Combivent as needed and recently started on Breztri 1 month ago (was supposed to be on Breztri but was not using due to cost of medication). Today he states he has been having episodes not responsive to Combivent or wearing his oxygen. He has rhinorrhea with drainage then coughing jags with expectoration of clear mucus. He feels as if he is unable to breathe. No wheezing noted. No acid reflux symptoms. Trial of OTC Claritin not helpful. When speaking to Mr. Sanchez regarding potential etiologies for his symptoms, frequent comment I disagree with you . DME: [employer] 3-4 L COPD Assessment Test I never cough 0 1 2 3 4 5 I cough all the time; Score 4 I have no phlegm 0 1 2 3 4 5 My chest is completely full of phlegm; Score 5 My chest does not feel tight at all 0 1 2 3 4 5 My chest chest feels very tight; Score 3 When I walk up a hill or one flight of stairs I am not breathless 0 1 2 3 4 5 When I walk up a hill or one flight or stairs I am very breathless; Score 5 I am not limited doing any activities at home 0 1 2 3 4 5 I am very limited doing activities at home; Score 5 I am confident leaving my home despite my lung condition 0 1 2 3 4 5 I am not at all confident leaving my home because of my lung condition; Score 4 I sleep soundly 0 1 2 3 4 5 don't sleep soundly because of my lungs; Score 4 I have lots of energy 0 1 2 3 4 5 I have no energy at all; Score 5 Total Score: 35 DATA: RESPIRATORY THERAPY OXIMETRY WITH AMBULATION Oximetry with Ambulation Test for This Encounter O2 Device O2 Adapter NC O2 Flow SpO2% HR Activity Ft Walked (ft) Time (min) Avg Speed (MPH) R/A 84 88 Resting NC 2 88 88 Resting NC 3 92 80 Resting NC 3 86 114 Walking, usual pace 230 1.8 1.45 NC 4 93 76 Resting NC 4 89 116 Walking, usual pace 400 3 1.52 PFT 08/2022: Review of spirometry shows moderate obstruction and normal diffusing capacity, unchanged from previous testing Imaging / Diagnostic Studies: DATE OF EXAM: Jun 11 2022 10:18PM [facility] 0540 - CT CHEST W IVCON PE / Comparison: No relevant prior studies available. RESULT: Limitations: None. Evaluation for thromboembolic disease: - Right heart chambers: No thromboembolic disease. - Main pulmonary arteries: No thromboembolic disease. - Lobar pulmonary arteries: No thromboembolic disease. - Segmental pulmonary arteries: No thromboembolic disease. - Subsegmental pulmonary arteries: No thromboembolic disease. - Additional pulmonary artery findings: The main pulmonary artery is normal in caliber. Lines, tubes, and devices: A dual-lead left-sided transvenous pacemaker seen. The leads appear appropriately positioned. Lung parenchyma and airways: No consolidation. Minimal bibasilar atelectasis is noted. No suspicious pulmonary nodule. The central airways are patent. Pleural space: No pleural effusion. No pleural thickening. Lower neck, lymph nodes, and mediastinum: The imaged thyroid gland is normal. No lymphadenopathy in the supraclavicular, axillary, mediastinal, or hilar regions. Heart, pericardium, and thoracic vessels: The thoracic aorta is normal in caliber. The cardiac chambers are normal in size. No coronary artery atherosclerotic calcifications are noted, although the study is not optimized for coronary assessment. No pericardial effusion or thickening. Bones and soft tissues: No destructive bone lesion. Chest wall is unremarkable. Upper abdomen: No abnormality in the imaged upper abdomen. Review of CT of the chest shows upper lobe predominant emphysema, lower lobe bronchial wall thickening, no suspicious nodules or infiltrates. PAST MEDICAL HISTORY Diagnosis Date Abdominal pain, left lower quadrant Acute myocardial infarction of other specified sites, episode of care unspecified 2003 Myocardial Infarction Asthma Benign neoplasm of rectum and anal canal Chronic hypoxemic respiratory failure ([facility]) 08/24/2021 Colon cancer ([facility]) 10/20/2010 COPD (chronic obstructive pulmonary disease) ([facility]) [address] Alfonso Coronary artery disease Diverticulitis Diverticulitis of colon (without mention of hemorrhage)(562.11) Hernia Hyperlipidemia, mixed Hypertension Impaired glucose tolerance Malignant neoplasm of colon, unspecified site 10/2010 Rx w Oxaliplatin (stopped for neuropathy) and 5FU PFO (patent foramen ovale) Pneumonia, organism unspecified(486) 2005 inpatient x 1 wk Postsurgical percutaneous transluminal coronary angioplasty status 2004 2 stents Ruptured appendix 06/24/2016 S/P placement of cardiac pacemaker 06/07/2022 Patient underwent implantation of [employer] dual-chamber permanent pacemaker with right atrial and right ventricular septal leads with Dr. Tracy on 06/06/2022. ALLERGIES No Known Allergies sbojrkukzh-ksulehkv-kzeeazvczg (BREZTRI AEROSPHERE) 160-9-4.8 mcg/actuation HFA aerosol inhaler Inhale 2 Puffs as instructed twice daily. clopidogrel (PLAVIX) 75 mg tablet Take 1 tablet by mouth once daily. metoprolol succinate ER (TOPROL XL) 50 mg 24 hr tablet Take 1 tablet by mouth once daily. ipratropium 20 mcg-albuterol 100 mcg (COMBIVENT RESPIMAT) 20-100 mcg/actuation inhaler Inhale 1 Puff as instructed four times daily as needed. lovastatin 40 mg tablet Take 1 tablet by mouth daily at bedtime. For cholesterol. lisinopril (ZESTRIL, PRINIVIL) 5 mg tablet Take 1 tablet by mouth once daily. nitroglycerin sublingual (NITROSTAT) 0.4 mg SL tablet Dissolve 1 tablet under the tongue every 5 minutes as needed. aspirin, enteric coated (ASPIRIN, ENTERIC COATED) 81 mg EC tablet Take 1 tablet by mouth once daily. predniSONE (DELTASONE) 10 mg tablet Take 4 daily for three days, then 3 daily for three days, then 2 daily for three days, then one daily for three days. acetaminophen (TYLENOL) 500 mg tablet Take 500 mg by mouth every 8 hours as needed. (Patient not taking: Reported on 03/24/2023) Social History Tobacco Use Smoking status: Former Packs/day: 1.50 Years: 45.00 Pack years: 67.50 Types: Cigarettes Start date: 06/13/1971 Quit date: 06/24/2016 Years since quittin.7 Smokeless tobacco: Never Tobacco comments: Parent's non smokers. Spouse smokes in home. 12/14/2015 Currently use vape Vaping Use Vaping Use: current everyday user Substances: Flavoring, States no tobacco in the device but tastes like tobacco Devices: Pre-filled or refillable cartridge, Refillable tank Substance Use Topics Alcohol use: No Drug use: No FAMILY HISTORY Problem Relation Age of Onset Heart Mother ID other (chf) Mother Heart Father ID Heart disease Brother Heart disease Brother Heart Brother ID Heart Brother ID other (heart murmur) Daughter other (CTS) No Family History PAST SURGICAL HISTORY Procedure Laterality Date CARDIAC CATH N/A 08/14/2018 Cardiac Cath/Stent placement COLON SURGERY HX COLONOSCOPY 09/30/2013 clean anastamosis, nodule at 35cm and 15 cm COLONOSCOPY FLX DX W/COLLJ SPEC WHEN PFRMD 01/30/2018 Colonoscopy COLONOSCOPY W/BIOPSY SINGLE/MULTIPLE 10/31/2010 near obstruction at 33-35cm COLSC FLX W/RMVL OF TUMOR POLYP LESION SNARE TQ 12/22/2000 clean anastamosis, polyp at 12cm EGD W/O BRSH SPEC VARICIES INJ 11/20/2021 repeat PRN F SIGMOID W STENT PLACEMENT 11/05/2010 Lap colectomy HEART SURGERY HX INSJ TUNNELED CTR VAD W/SUBQ PORT AGE 5 YR/> 12/07/2010 Left Subclavian Powerport PAST SURGICAL HISTORY OF 2014 SQ port removal PAST SURGICAL HISTORY OF N/A 06/06/2022 Pacemaker PAST SURGICAL HISTORY OF Bilateral 10/2022 B/L cataract surgery PERC TRANSL COR ANGIO 2004, 2006, 2009 Percutaneous Transluminal Coronary Angio Status SKIN BIOPSY HX PMH, Social history, family history and surgical history reviewed and updated in EMR REVIEW OF SYSTEMS: CONSTITUTIONAL: No fevers, chills, nightsweats, unintended weight loss or weight gain HEENT: Positive nasal congestion/sinus symptoms. No history of seasonal allergies. Rhinorrhea EYES: No diplopia or blurry vision, tearing CARDIOVASCULAR: No chest pain, palpitations, orthopnea, PND, edema. PULM: See HPI GI: Intermittent dysphagia, no problematic reflux NEURO: No new balance problems, peripheral weakness/paresthesias or numbness of concern. PSY: No concerns regarding depression, anxiety INTEGUMENTARY: No new skin changes or rashes PHYSICAL EXAMINATION: BP 130/68 Pulse 110 Resp 18 Wt 242 lb 9.6 oz (110.0kg) SpO2 90% General Appearance: Obese male, NAD Skin: Skin color, turgor normal, no suspicious rashes or lesions. Scaling skin Head: Normocephalic, no masses, lesions, tenderness or abnormalities. Eyes: Sclera, conjunctiva normal Oropharynx: Poor dentition, no oral lesions or thrush Neck: No JVD, no masses, no thyromegaly Lungs: Not labored, normal to percussion, no wheezes or crackles Heart: Regular rate and rhythm, no murmurs Extremities: Mild edema, no clubbing Lymph Nodes: No cervical lymphadenopathy and No supraclavicular lymphadenopathy. Assessment/Plan: 1. Moderate COPD, GOLD 2 -No marked decline in his obstructive lung disease on updated pulmonary function testing -Continue Breztri with as needed Combivent -Current symptomatology concerning for possible allergic component. Trial on oral steroids. Patient was instructed to contact me with response to the steroid course as he may need further treatment or change in medication 2. Chronic hypoxemic respiratory failure -Patient is compliant with nocturnal usage but strongly encourage use of portable oxygen especially in light of his underlying cardiac disease 3. Former cigarette smoker -Former [id number] smoker with sequelae of emphysema. Recommending low-dose chest CT for cancer screening but patient is declining at this time. Camila Blake MD [facility] [place] documented in this encounter [facility] 03-24-2023 Nurse Note Patient presents with: COPD Pt presents to office today for follow up for COPD. Pt states over the last couple of months, patient has been experiencing deep coughing fits that patient cannot get relief from, despite wearing oxygen, inhaler use as well as use of Breztri. Pt states he is having more trouble breathing as does not understand what is happening or how to get relief. Pt is asking for refills of medications as well. documented in this encounter [facility] 03-11-2023 Note HNO ID: [id number] Author: Radha Lebron MD Service: ? Author Type: Physician Type: Progress Notes Filed: 03/11/2023 5:26 PM Note Text: Chief Complaint Patient presents with: F/U 6 Month HPI Gabriel Sanchez is a 67 year old male who presents here today for a 6 month follow up. Pt here today for his 6 month follow up. Pt asking if this office can prescribe the medical marijuana. He's interested in the CBD gummies. COPD: Follows with YOANA Smith. Currently taking Combivent Respimat QID prn and Breztri 160-9-4.8 2 puffs bid. Does check O2 at home. Does have Oxygen concentrator that he uses at night. Pt notes that his O2 varies from 85-93 on RA. Generally when he uses O2 his Oxygen he stays above 90, he has been on 3-4 L of O2. HTN/Lipid/CAD/heart block: Follows with Cardio, Jennyfer Hebert CNP. He may/may not switch back to [facility] since [facility] Provider only comes here once a week and [facility] has Cardio Team here in [place] on site. Does have some concerns with his pacemaker and how it shocks and make him feel when it tries to get him back into rhythm. On current regimen of Plavix 75 mg daily, Losartan 40 mg daily, Lisinopril 5 mg daily, Aspirin 81 mg daily and Toprol xl 50 mg daily. No chest pain or dizziness. Does have sob due to COPD. Ophth - Had cataract surgery in October. Still having light sensitivity, since his surgery in October. Wearing sunglasses during today's visit. Depression - Vision has improved since cataract surgery. Wish health was overall better. Unsure if everything he's gone through has really benefited him. Tearful today during visit. Pain - Chronic knee pain that makes it difficult to get around. Wanted to have them operated on, but this has yet to occur. Interested in medical marijuana. Has used CBD creams. Was previously given [place], but was d/c due to marijuana in his urine tox screen. Past medical history, appointments, medications, allergies reviewed. Previous Medical History PAST MEDICAL HISTORY Diagnosis Date Abdominal pain, left lower quadrant Acute myocardial infarction of other specified sites, episode of care unspecified 2003 Myocardial Infarction Asthma Benign neoplasm of rectum and anal canal Chronic hypoxemic respiratory failure ([facility]) 08/24/2021 Colon cancer ([facility]) 10-20-2010 COPD (chronic obstructive pulmonary disease) ([facility]) [address] Alofnso Coronary artery disease Diverticulitis Diverticulitis of colon (without mention of hemorrhage)(562.11) Heart disease Hernia Hyperlipidemia, mixed Hypertension Impaired glucose tolerance Malignant neoplasm of colon, unspecified site 10/2010 Rx w Oxaliplatin (stopped for neuropathy) and 5FU PFO (patent foramen ovale) Pneumonia, organism unspecified(486) 2005 inpatient x 1 wk Postsurgical percutaneous transluminal coronary angioplasty status 2004 2 stents Ruptured appendix 06/24/2016 S/P placement of cardiac pacemaker 06/07/2022 Patient underwent implantation of [employer] dual-chamber permanent pacemaker with right atrial and right ventricular septal leads with Dr. Tracy on 06/06/2022. Previous Surgical History PAST SURGICAL HISTORY Procedure Laterality Date CARDIAC CATH N/A 08/14/2018 Cardiac Cath/Stent placement COLON SURGERY HX COLONOSCOPY 09/30/2013 clean anastamosis, nodule at 35cm and 15 cm COLONOSCOPY FLX DX W/COLLJ SPEC WHEN PFRMD 01/30/2018 Colonoscopy COLONOSCOPY W/BIOPSY SINGLE/MULTIPLE 10/31/2010 near obstruction at 33-35cm COLSC FLX W/RMVL OF TUMOR POLYP LESION SNARE TQ 12/22/2000 clean anastamosis, polyp at 12cm EGD W/O BRSH SPEC VARICIES INJ 11/20/2021 repeat PRN F SIGMOID W STENT PLACEMENT 11/05/2010 Lap colectomy HEART SURGERY HX INSJ TUNNELED CTR VAD W/SUBQ PORT AGE 5 YR/> 12/07/2010 Left Subclavian Powerport PAST SURGICAL HISTORY OF 2015 SQ port removal PERC TRANSL COR ANGIO 2004, 2006, 2009 Percutaneous Transluminal Coronary Angio Status SKIN BIOPSY HX Family History FAMILY HISTORY Problem Relation Age of Onset Heart Mother ID other (chf) Mother Heart Father ID Heart disease Brother Heart disease Brother Heart Brother ID Heart Brother ID other (heart murmur) Daughter other (CTS) No Family History Patient Allergies ALLERGIES No Known Allergies Current Medications Current Outpatient Medications on File Prior to Visit Medication Sig czwdbpurvi-dnrswhza-ngksxryifg (BREZTRI AEROSPHERE) 160-9-4.8 mcg/actuation HFA aerosol inhaler Inhale 2 Puffs as instructed twice daily. clopidogrel (PLAVIX) 75 mg tablet Take 1 tablet by mouth once daily. metoprolol succinate ER (TOPROL XL) 50 mg 24 hr tablet Take 1 tablet by mouth once daily. ipratropium 20 mcg-albuterol 100 mcg (COMBIVENT RESPIMAT) 20-100 mcg/actuation inhaler Inhale 1 Puff as instructed four times daily as needed. lovastatin 40 mg tablet Take 1 tablet by mouth daily at bedtime. For cholesterol. lisinop (more content not included)... [facility] 02-27-2023 Miscellaneous Notes Patient stopped by the office with concerns that his Combivent inhaler does not seem to be lasting as long as it typically does for sx. Feels increasingly short of breath with exertion. He variably uses O2 with exertion, But I try not to use it. Lengthy discussion with patient. Had previously been on Breztri and discontinued due to cost of medication, but he is willing to try the medication again to see if he gets benefit prior to his appointment in March. Advised patient this nurse would send request for new Breztri RX to [facility], and to notify office if it is not covered by his insurance. We could look into alternatives or consult SW for assistance. Encouraged patient to consistently wear exertional O2. Last echo 11/26/21, BNP 818 on 06/11/22. Follows with cardiology here. Sunitha Chirinos LPN documented in this encounter [facility] 02-17-2023 Miscellaneous Notes OK to refill as ordered Radha Lebron MD Patient has been identified by name and date of : Yes Requested Prescriptions Pending Prescriptions Disp Refills clopidogrel (PLAVIX) 75 mg tablet 90 tablet 3 Sig: Take 1 tablet by mouth once daily. RX INSTRUCTIONS: Patient aware RX will be sent to pharmacy. No need to notify patient. Patient last office visit: 09/09/23 Patient next office visit: 03/11/23 Sabiha Dumont MA documented in this encounter [facility] 02-10-2023 Miscellaneous Notes See other refill request. Fannie Candelario Ma documented in this encounter [facility] 11-28-2022 Miscellaneous Notes The following approved medication requests have been transmitted electronically. Requested Prescriptions Pending Prescriptions Disp Refills lovastatin 40 mg tablet 90 tablet 3 Sig: Take 1 tablet by mouth daily at bedtime. For cholesterol. lisinopril (ZESTRIL, PRINIVIL) 5 mg tablet 90 tablet 3 Sig: Take 1 tablet by mouth once daily. Dioni Gonsalez APRN.KLAUS documented in this encounter [facility] 09-10-2022 Miscellaneous Notes Sw left 2nd message for patient to return call if wanting to discuss applying for assistance with Bretzi inhaler. Sw left patient message to have call returned to discuss prescription assistance for Bretzri inhaler. documented in this encounter [facility] 09-09-2022 Miscellaneous Notes All appropriate cardiac clearance forms filled out per Jennyfer Helms and faxed (with fax confirmation) as requested. Hillary Murphy RN Cardiac clearance form received and placed in office file folder for Jennyfer Cain APRN to review Friday. Spoke with Gabriel, he will have the form faxed to cardiology. Yanna Solano RN Spoke to Jennyfer Cain APRN. Pt does not need an appt for clearance. We need to know surgeon/place of surgery and they can fax a clearance form to us to complete at [phone]. Patient called. Verified name and date of . Patient states he needs to speak with [facility]. Vandana Armstrong LPN Received written note from another caregiver pt wanted a call in regards to needing cardiac clearance for eye surgery. Call to pt to get more information, LVM to contact office. Sabiha Leal RN documented in this encounter [facility] 09-09-2022 History of Presen t illness Narrative Chief Complaint Patient presents with: Medication Follow-up HPI Gabriel Sanchez is a 67 year old male who presents here today for follow up. No bowel, Gi, or urinary issues. COPD: Taking Combivent Respimat QID prn. Pt states that he needs portable 02 but has not been able to get it due to needing 4 L continuous air, but not portable. Does have Oxygen concentrator that he uses at night. Pt notes that his O2 varies from 85-93 on RA. HTN/Lipid/CAD: Is following with Cardio, Jennyfer Hebert. Taking Plavix 75 mg daily, Losartan 40 mg daily, Lisinopril 5 mg daily, Aspirin 81 mg daily and Toprol xl 50 mg daily. No chest pain or dizziness. Does have sob due to COPD. Ophth - Was seen by [facility], Dr. Potter due to vision issues. Pt thought his glasses were bad due to not being seen for quite some time. He went in and was found to have cataracts and he's legally blind. They would not operate on him and was scheduled to have this done on 09/13/22, but failed his pre-admission testing. Awaiting Pulm and Cardiology clearance. Pt still drives but only when he has too. Did not pass his vision test while at [facility], but does have his sticker for his plate. Depression - Pt states since they told him he's legally blind and having issues this has been depressing him daily. Pain - Chronic knee pain that makes it difficult to get around. Wanted to have them operated on, but this has yet to occur. HM - Reports depression. Declines further Covid vaccines. Past medical history, appointments, medications, allergies reviewed. Previous Medical History PAST MEDICAL HISTORY Diagnosis Date Abdominal pain, left lower quadrant Acute myocardial infarction of other specified sites, episode of care unspecified 2003 Myocardial Infarction Asthma Benign neoplasm of rectum and anal canal Chronic hypoxemic respiratory failure (HCC) 08/24/2021 Colon cancer ([facility]) 10-20-2010 COPD (chronic obstructive pulmonary disease) ([facility]) [address] Alfonso Coronary artery disease Diverticulitis Diverticulitis of colon (without mention of hemorrhage)(562.11) Heart disease Hernia Hyperlipidemia, mixed Hypertension Impaired glucose tolerance Malignant neoplasm of colon, unspecified site 10/2010 Rx w Oxaliplatin (stopped for neuropathy) and 5FU PFO (patent foramen ovale) Pneumonia, organism unspecified(486) 2006 inpatient x 1 wk Postsurgical percutaneous transluminal coronary angioplasty status 2004 2 stents Ruptured appendix 06/24/2016 S/P placement of cardiac pacemaker 06/07/2022 Patient underwent implantation of Saint Kana dual-chamber permanent pacemaker with right atrial and right ventricular septal leads with Dr. Tracy on 06/06/2022. Previous Surgical History PAST SURGICAL HISTORY Procedure Laterality Date CARDIAC CATH N/A 08/14/2018 Cardiac Cath/Stent placement COLON SURGERY HX COLONOSCOPY 09/30/2013 clean anastamosis, nodule at 35cm and 15 cm COLONOSCOPY FLX DX W/COLLJ SPEC WHEN PFRMD 01/30/2018 Colonoscopy COLONOSCOPY W/BIOPSY SINGLE/MULTIPLE 10/31/2010 near obstruction at 33-35cm COLSC FLX W/RMVL OF TUMOR POLYP LESION SNARE TQ 12/22/2000 clean anastamosis, polyp at 12cm EGD W/O BRSH SPEC VARICIES INJ 11/20/2021 repeat PRN F SIGMOID W STENT PLACEMENT 11/05/2010 Lap colectomy HEART SURGERY HX INSJ TUNNELED CTR VAD W/SUBQ PORT AGE 5 YR/> 12/07/2010 Left Subclavian Powerport PAST SURGICAL HISTORY OF 2014 SQ port removal PERC TRANSL COR ANGIO 2004, 2006, 2009 Percutaneous Transluminal Coronary Angio Status SKIN BIOPSY HX Family History FAMILY HISTORY Problem Relation Age of Onset Heart Mother ID other (chf) Mother Heart Father ID Heart disease Brother Heart disease Brother Heart Brother ID Heart Brother ID other (heart murmur) Daughter other (CTS) No Family History Patient Allergies ALLERGIES No Known Allergies Current Medications Current Outpatient Medications on File Prior to Visit Medication Sig ppddyrxfds-evfijlqv-bxdddrrfew (BREZTRI) 160-9-4.8 mcg/actuation HFA aerosol inhaler Inhale 2 Puffs as instructed twice daily. ipratropium 20 mcg-albuterol 100 mcg (COMBIVENT RESPIMAT) 20-100 mcg/actuation inhaler Inhale 1 Puff as instructed four times daily as needed. acetaminophen (TYLENOL) 500 mg tablet Take 500 mg by mouth every 8 hours as needed. nitroglycerin sublingual (NITROSTAT) 0.4 mg SL tablet Dissolve 1 tablet under the tongue every 5 minutes as needed. metoprolol succinate ER (TOPROL XL) 50 mg 24 hr tablet Take 1 tablet by mouth once daily. clopidogrel (PLAVIX) 75 mg tablet Take 1 tablet by mouth once daily. lovastatin 40 mg tablet Take 1 tablet by mouth daily at bedtime. For cholesterol. lisinopril (ZESTRIL, PRINIVIL) 5 mg tablet Take 1 tablet by mouth once daily. aspirin, enteric coated (ASPIRIN, ENTERIC COATED) 81 mg EC tablet Take 1 tablet by mouth once daily. Current Facility-Administered Medications on File Prior to Visit Medication sodium chloride 0.9 % (flush) 10 mL (BD POSIFLUSH) Social History Social History Tobacco Use Smoking status: Former Packs/day: 1.50 Years: 45.00 Pack years: 67.50 Types: Cigarettes Start date: 06/13/1971 Quit date: 06/24/2016 Years since quittin.2 Smokeless tobacco: Never Tobacco comments: Parent's non smokers. Spouse smokes in home. 12/14/2015 Currently use vape Vaping Use Vaping Use: current everyday user Substances: Flavoring, States no tobacco in the device but tastes like tobacco Devices: Pre-filled or refillable cartridge, Refillable tank Substance Use Topics Alcohol use: No Drug use: No EXAM: BP 124/72 (BP Site: Left Arm, BP Position: Sitting, BP Cuff Size: Regular Adult) Pulse 92 Resp 20 Wt 113.3 kg (249 lb 12.8 oz) SpO2 88% BMI 37.98 kg/m General Appearance: Well appearing, alert, in no acute distress, well-hydrated, well nourished. and Obese. Lungs: Lungs clear to auscultation. No wheezing, rhonchi, rales.. Heart: RRR without murmur, gallop, or rubs. No ectopy. Health Maintenance List ABDOMINAL AORTIC ANEURYSM SCREENING Never done LUNG CANCER SCREENING Never done SHINGRIX VACCINE(1 of 2) Never done PROSTATE CANCER SCREENING DISCUSSION due on 11/23/2018 ADVANCE DIRECTIVE DISCUSSION Never done DEPRESSION ASSESSMENT Never done COVID-19 VACCINE(4 - Booster for Moderna series) due on 04/09/2022 INFLUENZA(1) due on 06/20/2022 COLORECTAL CANCER SCREENING due on 01/30/2023 LDL CHOLESTEROL due on 06/07/2023 ANNUAL PCP TEAM CHRONIC DISEASE VISIT due on 06/19/2023 BP CONTROLLED (<130/80) due on 07/10/2023 DTAP,TDAP,TD(2 - Td or Tdap) due on 05/02/2024 DIABETES SCREEN due on 06/12/2025 LIPID SCREEN due on 06/07/2027 ALPHA-1 ANTITRYPSIN DEFICIENCY SCREENING Completed SPIROMETRY Completed HEPATITIS C SCREENING Completed PNEUMOCOCCAL: 65+ Completed Data reviewed Epic ASSESSMENT/PLAN: 1. Chronic obstructive pulmonary disease, unspecified COPD type (HCC) - ICD9: 496, ICD10: J44.9 (primary diagnosis) - Cont f/u with Pulmonary - Continue current medication regimen. 2. Essential hypertension - ICD9: 401.9, ICD10: I10 - good control - Continue current medication(s) - Recommended regular aerobic exercise. - Recommend home blood pressure monitoring, to bring results in on next visit - Goal of BP <130/80 3. Mixed hyperlipidemia - ICD9: 272.2, ICD10: E78.2 - Stable continue current medication 4. S/P placement of cardiac pacemaker - ICD9: V45.01, ICD10: Z95.0 - Needs to f/u for Pacemaker checks 5. Cataract of both eyes, unspecified cataract type - ICD9: 366.9, ICD10: H26.9 - 6 mo f/u I agree with the Chief Complaint, ROS, and Past Histories independently gathered by the clinical wan support specialist and the remaining scribed note accurately describes my personal service to the patient. Medical Decision Making: Problems: Moderate: 2+ stable chronic illnesses Risk: Moderate: Drug management Medical Decision Making Level: 4 - Moderate Radha Lebron MD The documentation for this note was completed by Sanam Arreola Ma acting as scribe for Radha Lebron MD. September 09, 2022 4:07 PM. Sanam Arreola Ma documented in this encounter [facility] 09-06-2022 Procedure note Associated Ord er(s): OXIMETRY WITH AMBULATION RESPIRATORY THERAPY OXIMETRY WITH AMBULATION Oximetry with Ambulation Test for This Encounter O2 Device O2 Adapter NC O2 Flow SpO2% HR Activity Ft Walked (ft) Time (min) Avg Speed (MPH) R/A 84 88 Resting NC 2 88 88 Resting NC 3 92 80 Resting NC 3 86 114 Walking, usual pace 230 1.8 1.45 NC 4 93 76 Resting NC 4 89 116 Walking, usual pace 400 3 1.52 General Information Pulse Oximetry Site Total Time Spent O2 Supply Carrier Walking Assistance/Device R Index Finger 40 3 Wheel Walker -- NAME: ROGELIO Winchester PATIENT NAME: Gabriel Sanchez DATE: September 06, 2022 TIME: 9:18 AM Comment: documented in this encounter [facility] 09-06-2022 History of Presen t illness Narrative PULM FUNCTION SMARTBLOCK: Provider: Amalia Pritchard PA-C Assisting Tech: ROGELIO Winchester Spirometry: 1 DLCO: 1 Oximetry - Ambulation: 1 documented in this encounter [facility] 09-02-2022 Miscellaneous Notes Patient is scheduled for an updated walk and office visit on 09/06. ariane Sami with [facility] called requesting order for O2.O2 Concentrator to be faxed to [facility]. Vandana Armstrong LPN documented in this encounter [facility] 07-23-2022 History of Presen t illness Narrative [facility] Enrollment Provider Action/FYI: Patient referred by: TCM Contact made with patient: No - 3rd attempt to reach patient, left another message: Hi my name is Fannie Atwood RN and I am calling from the [facility] on behalf of your PCP, Radha Lebron MD. We are excited to share with you a new program to help you manage your health. Please call me back at [phone]. I hope you can take the time to speak with me. (Keep encounter open for additional two business days in case patient calls back. Close encounter if no response by end of second business day) Closing: Could not reach the patient after 3 attempted outreaches. Caterpillar Operator to retry patient in one week. END OUTREACH documented in this encounter [facility] 07-15-2022 History of Presen t illness Narrative [facility] Enrollment Provider Action/FYI: Patient referred by: TCM Contact made with patient: No - 2nd attempt to reach patient, left another message: Hi my name is Fannie Atwood RN and I am calling from the [facility] on behalf of your PCP, Radha Lebron MD. We are excited to share with you a new program to help you manage your health. Please call me back at [phone]. I hope you can take the time to speak with me. (Keep encounter open for additional two business days in case patient calls back. Close encounter if no response by end of second business day) Closing: Could not reach the patient after two attempted outreaches. Caterpillar Operator to retry patient in one week. END OUTREACH documented in this encounter [facility] 07-11-2022 History of Presen t illness Narrative [facility] Enrollment Provider Action/FYI: Patient referred by: TCM Contact made with patient: No - Left Message: Hi my name is Fannie Atwood RN and I am calling from the [facility] on behalf of your PCP, Radha Lebron MD. We are excited to share with you a new program to help you manage your health. Please call me back at [phone] between the hours of 8am-5pm Friday-Friday. You will receive another phone call from me within the next two business days. I hope you can take the time to speak with me. (Keep encounter open and attempt 2nd outreach in two business days from today) END OUTREACH documented in this encounter [facility] 07-10-2022 History of Presen t illness Narrative [facility] General Cardiology Electrophysiology PRIMARY CARE PHYSICIAN: Radha Lebron [address] [place] [address] CHIEF COMPLAINT: Presence of cardiac pacemaker. HISTORY OF PRESENT ILLNESS (copied from Dr. Tracy's original consult note on 06/06/2022): 66-year-old male with history of essential hypertension, COPD, atherosclerotic heart disease, myocardial infarction, status post several PCI's with stent, preserved systolic function, presented to [facility] with 1 week history of increasing fatigue and dyspnea, found to be in sinus rhythm with complete AV block with a narrow complex escape in the 40s, stable hemodynamically. The patient was transferred to [facility]. The patient reports ongoing fatigue and dyspnea somewhat more prominent than at his baseline, denies chest pain, palpitation, dizziness, or syncope. The patient was told that he had dextrocardia. The patient reports history of indwelling chemotherapy port in the left subclavian vein that was removed a number of years ago. Telemetry shows sinus rhythm with complete AV block and narrow escape rhythm in the 40s. An echocardiogram in 2021 showed EF of 55%, mild LVH, no significant valve disease. There was no report suggestive of dextrocardia. Chest x-ray is suspicious for either cardiac rotation/mediastinal shift or dextrocardia. Interval History: Gabriel is a pleasant 66-year-old gentleman who presents today for follow-up regarding permanent pacemaker. Patient underwent implantation of Saint Kana dual-chamber permanent pacemaker with RA and right ventricular septal leads with Dr. Tracy on 06/06/2022. Overall Gabriel reports he has been doing somewhat okay. He has an extensive COPD history and follows with pulmonology chronically. He mentioned during her visit that he is noticeably short of breath. He revealed he is supposed to wear oxygen 24 hours a day at home. Unfortunately he does not do this and he only wears it at night. When I inquired about a sleep study he indicated he tested positive for sleep apnea but would not wear a CPAP. Patient stated he did not believe the results from sleep study report. From an EP standpoint patient has been doing well. Twelve-lead performed in office showed ventricular paced rhythm with underlying normal sinus with a rate of 88. Gabriel takes 50 mg of Toprol-XL daily. SBP today was 110/72. Most recent device check from 06/17/2022 indicated atrial noise reversion which was binned as a mode switch. There were no V HR episodes and battery life is estimated at 5.4 to 6.4 years. Follow-up in 1 year. PAST MEDICAL HISTORY Diagnosis Date Abdominal pain, left lower quadrant Acute myocardial infarction of other specified sites, episode of care unspecified 2003 Myocardial Infarction Asthma Benign neoplasm of rectum and anal canal Chronic hypoxemic respiratory failure (HCC) 08/24/2021 Colon cancer (HCC) 10-20-2010 COPD (chronic obstructive pulmonary disease) (HCC) [address] Alfonso Coronary artery disease Diverticulitis Diverticulitis of colon (without mention of hemorrhage)(562.11) Heart disease Hernia Hyperlipidemia, mixed Hypertension Impaired glucose tolerance Malignant neoplasm of colon, unspecified site 10/2010 Rx w Oxaliplatin (stopped for neuropathy) and 5FU PFO (patent foramen ovale) Pneumonia, organism unspecified(486) 2005 inpatient x 1 wk Postsurgical percutaneous transluminal coronary angioplasty status 2003 2 stents Ruptured appendix 06/24/2016 S/P placement of cardiac pacemaker 06/07/2022 Patient underwent implantation of Saint Kana dual-chamber permanent pacemaker with right atrial and right ventricular septal leads with Dr. Tracy on 06/06/2022. PAST SURGICAL HISTORY Procedure Laterality Date CARDIAC CATH N/A 08/14/2018 Cardiac Cath/Stent placement COLON SURGERY HX COLONOSCOPY 09/30/2013 clean anastamosis, nodule at 35cm and 15 cm COLONOSCOPY FLX DX W/COLLJ SPEC WHEN PFRMD 01/30/2018 Colonoscopy COLONOSCOPY W/BIOPSY SINGLE/MULTIPLE 10/31/2010 near obstruction at 33-35cm COLSC FLX W/RMVL OF TUMOR POLYP LESION SNARE TQ 12/22/2000 clean anastamosis, polyp at 12cm EGD W/O BRSH SPEC VARICIES INJ 11/20/2021 repeat PRN F SIGMOID W STENT PLACEMENT 11/05/2010 Lap colectomy HEART SURGERY HX INSJ TUNNELED CTR VAD W/SUBQ PORT AGE 5 YR/> 12/07/2010 Left Subclavian Powerport PAST SURGICAL HISTORY OF 2014 SQ port removal PERC TRANSL COR ANGIO 2004, 20062009 Percutaneous Transluminal Coronary Angio Status SKIN BIOPSY HX Social History Tobacco Use Smoking status: Former Packs/day: 1.50 Years: 45.00 Pack years: 67.50 Types: Cigarettes Start date: 06/13/1971 Quit date: 06/24/2016 Years since quittin.0 Smokeless tobacco: Never Tobacco comments: Parent's non smokers. Spouse smokes in home. 12/14/2015 Currently use vape Vaping Use Vaping Use: current everyday user Substances: Flavoring, States no tobacco in the device but tastes like tobacco Devices: Pre-filled or refillable cartridge, Refillable tank Substance Use Topics Alcohol use: No Drug use: No Family History Problem Relation Age of Onset Heart Mother ID other (chf) Mother Heart Father ID Heart disease Brother Heart disease Brother Heart Brother ID Heart Brother ID other (heart murmur) Daughter other (CTS) No Family History ALLERGIES No Known Allergies MEDICATIONS: jpgyqnhujm-kshslrjo-giszcvcrpv (BREZTRI) 160-9-4.8 mcg/actuation HFA aerosol inhaler^Inhale 2 Puffs as instructed twice daily.^Disp: 1 Each^Rfl: 11 ipratropium 20 mcg-albuterol 100 mcg (COMBIVENT RESPIMAT) 20-100 mcg/actuation inhaler^Inhale 1 Puff as instructed four times daily as needed.^Disp: 1 Each^Rfl: 5 acetaminophen (TYLENOL) 500 mg tablet^Take 500 mg by mouth every 8 hours as needed.^Disp: ^Rfl: nitroglycerin sublingual (NITROSTAT) 0.4 mg SL tablet^Dissolve 1 tablet under the tongue every 5 minutes as needed.^Disp: 1 Bottle of 25^Rfl: 6 metoprolol succinate ER (TOPROL XL) 50 mg 24 hr tablet^Take 1 tablet by mouth once daily.^Disp: 90 tablet^Rfl: 3 clopidogrel (PLAVIX) 75 mg tablet^Take 1 tablet by mouth once daily.^Disp: 90 tablet^Rfl: 3 lovastatin 40 mg tablet^Take 1 tablet by mouth daily at bedtime. For cholesterol.^Disp: 90 tablet^Rfl: 3 lisinopril (ZESTRIL, PRINIVIL) 5 mg tablet^Take 1 tablet by mouth once daily.^Disp: 90 tablet^Rfl: 3 aspirin, enteric coated (ASPIRIN, ENTERIC COATED) 81 mg EC tablet^Take 1 tablet by mouth once daily.^Disp: ^Rfl: REVIEW OF SYSTEMS: Review of Systems Constitutional: Negative for chills, fatigue and fever. Respiratory: Positive for shortness of breath. Negative for apnea, cough, chest tightness and wheezing. Cardiovascular: Negative for chest pain, palpitations and leg swelling. Gastrointestinal: Negative for abdominal distention, abdominal pain, constipation, diarrhea, nausea and vomiting. Genitourinary: Negative for difficulty urinating, dysuria and hematuria. Musculoskeletal: Negative for arthralgias. Neurological: Negative for dizziness, weakness, light-headedness and headaches. Psychiatric/Behavioral: Negative for agitation, behavioral problems, confusion and suicidal ideas. PHYSICAL EXAMINATION: There were no vitals taken for this visit. Physical Exam Constitutional: Appearance: He is obese. Cardiovascular: Rate and Rhythm: Normal rate and regular rhythm. Pulses: Normal pulses. Radial pulses are 2+ on the right side and 2+ on the left side. Heart sounds: Normal heart sounds, S1 normal and S2 normal. Comments: Ventricular paced rhythm with underlying normal sinus with a rate of 88. Pulmonary: Effort: Pulmonary effort is normal. Breath sounds: Normal breath sounds. Abdominal: General: Bowel sounds are normal. Palpations: Abdomen is soft. Musculoskeletal: Comments: Bilateral lower extremity dependent nonpitting edema Skin: General: Skin is warm and dry. Neurological: Mental Status: He is alert and oriented to person, place, and time. Psychiatric: Mood and Affect: Mood normal. Behavior: Behavior normal. CARDIOVASCULAR MEDICINE TESTING: Device Check 06/17/2022 PM remote interrogation - alert for Atrial Noise Reversion. All events occur 06-14-22 between 1334 and 1422. EGMs show atrial lead noise binned as mode switch. Undetected noise also noted on RV lead suggesting YANNI etiology. Tech support contacted and agrees with low-level YANNI origin. Also note 1 beat suspicious for non-capture (episode 3 of 13). 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 Interrogation shows no VHR and 13 mode switch episodes (see above) since last check 06-12-22. Lead impedances and RA sensing measurements stable. Battery voltage stable, estimated longevity 5.4 to 6.4 years. I have personally reviewed the Device Check. PLAN AND RECOMMENDATIONS: ASSESSMENT/PLAN: 1. S/P placement of cardiac pacemaker - ICD9: V45.01, ICD10: Z95.0 (primary diagnosis) Patient underwent implantation of Saint Kana dual-chamber permanent pacemaker with right atrial and right ventricular septal leads with Dr. Tracy on 06/06/2022. Indications included nonreversible symptomatic bradycardia due to second-degree and or third-degree AV block. Most recent device check revealed low-level YANNI. RV noted to be pacing 98% of the time with no ventricular high rates and 13 mode switches. Estimated battery life remaining is 5.4 to 6.4 years. 2. Essential hypertension - ICD9: 401.9, ICD10: I10 Current antihypertensive regimen includes Toprol-XL 50 mg daily and lisinopril 5 mg daily. No follow-ups on file. Anton Rock APRN.KLAUS documented in this encounter [facility] 07-10-2022 Nurse Note No cardiac complaints today. Amadna Dior MA documented in this encounter [facility] 07-09-2022 History of Presen t illness Narrative TRANSITION CARE MANAGEMENT (TCM) FOLLOW-UP NOTE Provider Action/FYI Chart reviewed. Unable to reach patient-left voicemail. Order placed for CDM to follow for COPD. Summary: Pt discharged from [facility] on 06/12/22. Admitted for: COPD Caterpillar Operator plan for next outreach: No further follow up needed at this time Signature Joyce Sheppard RN July 09, 2022 documented in this encounter [facility] 06-26-2022 History of Presen t illness Narrative TRANSITION CARE MANAGEMENT (TCM) FOLLOW-UP NOTE Provider Action/FYI Chart reviewed. Pt had follow-up with PCP 06/19/22. Unable to reach patient-left voicemail. Will continue to follow. Summary: Pt discharged from [facility] on 06/12/22. Admitted for: COPD Caterpillar Operator plan for next outreach: Will continue to follow. Signature Joyce Sheppard RN June 26, 2022 documented in this encounter [facility] 06-25-2022 Miscellaneous Notes [place] [facility] [place] Resent to [facility] per patient request. Sunitha Chirinos LPN Liliya called from [facility] requesting portiable oxygen RX be sent to [facility]. Fax [phone]. Emerald Simental LPN documented in this encounter [facility] 06-20-2022 Miscellaneous Notes Office visit with PA on 06/20 Sunitha Chirinos LPN Karen from [employer] team calling for patient asking if he could have an Rx for portable oxygen concentrator to use when he is outside of the house? Patient has an appointment on Friday for a follow up . documented in this encounter [facility] 06-20-2022 History of Presen t illness Narrative Images from the original note were not included. [facility] FOLLOW-UP OFFICE VISIT 06/20/2022 HISTORY OF PRESENT ILLNESS: Gabriel Sanchez is a 66 year old male who presents today for hospital follow-up. Past medical history is significant for COPD with chronic hypoxemic respiratory failure, complete heart block s/p recent pacemaker 05/2022, acute ID in 2003, CAD, hyperlipidemia, colon CA 2010, and СВЕТЛАНА non-compliant with CPAP. Former smoker, quit 2015. 67.5 pack years. Patient was admitted to [facility] from 06/11 - 06/12 for treatment of AECOPD. This was a week after being hospitalized from 06/05 - 06/07 secondary to complete heart block with pacemaker placement on 06/06. Patient presented to [facility] on 06/11 secondary to SOB and increased oxygen requirements since being discharged 1 week prior. Patient was on 3L NC with exertion prior to admission and was needing 5L supplemental oxygen continuously. Initially concerned that pacemaker was not functioning, however, based on labs and imaging symptoms consistent with COPD exacerbation and patient started on doxycyline and prednisone. Today, the patient reports he is doing well since being discharged. Daily cough. Typically non-productive. No hemoptysis. Intermitted wheezing. No dyspnea at rest. Exertional dyspnea significantly improved since discharge. Currently wearing 3L supplemental oxygen at night and as needed during the day. DME: Linda Patient is out of the house frequently for appointments and would benefit from a portable oxygen concentrator. I have sent orders for POC in January 2022 and Oct 2021. PSG in 2015 revealed СВЕТЛАНА, however, patient did not follow through with titration study. States today, I would rather than wear that CPAP thing . ROS: General: Generally feels good. Appetite good. Eyes, Ears, nose, throat: No post nasal drip, rhinorrhea, purulent nasal discharge, epistaxis. No hoarseness. Vision stable. Cardiac: No angina, edema, orthopnea. Resp: See HPI. GI: No heartburn, dysphagia. Musculoskeletal: No pain. Neuro: No headache, focal weakness, tremor. Skin: No rash. Otherwise negative. Current Outpatient Medications Medication Sig Dispense Refill acetaminophen (TYLENOL) 500 mg tablet Take 500 mg by mouth every 8 hours as needed. nitroglycerin sublingual (NITROSTAT) 0.4 mg SL tablet Dissolve 1 tablet under the tongue every 5 minutes as needed. 1 Bottle of 25 6 metoprolol succinate ER (TOPROL XL) 50 mg 24 hr tablet Take 1 tablet by mouth once daily. 90 tablet 3 clopidogrel (PLAVIX) 75 mg tablet Take 1 tablet by mouth once daily. 90 tablet 3 ipratropium 20 mcg-albuterol 100 mcg (COMBIVENT RESPIMAT) 20-100 mcg/actuation inhaler Inhale 1 Puff as instructed four times daily as needed. 3 Inhaler 3 lovastatin 40 mg tablet Take 1 tablet by mouth daily at bedtime. For cholesterol. 90 tablet 3 lisinopril (ZESTRIL, PRINIVIL) 5 mg tablet Take 1 tablet by mouth once daily. 90 tablet 3 aspirin, enteric coated (ASPIRIN, ENTERIC COATED) 81 mg EC tablet Take 1 tablet by mouth once daily. Current Facility-Administered Medications Medication Dose Route Frequency Provider Last Rate Last Admin sodium chloride 0.9 % (flush) 10 mL (BD POSIFLUSH) 10 mL INTRAVENOUS DIRECTED PRN Jennyfer Cain APRN.POOL TABLE MECHANIC I have reviewed and updated the medication list in the EMR. ALLERGIES No Known Allergies IMMUNIZATIONS Prevnar - 12/17/2018 Pneumovax 23 - 08/11/2021, 08/31/2008 Influenza - 08/11/2021 COVID-19 - 02/12/2022, 02/01/2021, 01/04/2021 PHYSICAL EXAMINATION: BP 128/82 Pulse 91 Wt 109.5 kg (241 lb 8 oz) SpO2 90% BMI 36.72 kg/m O2: RA Gen: No acute distress. Cooperative with examination. ENT: Oral hygeine and dentition good. Pharynx clear. No halitosis. Resp: No stridor, accessory respiratory muscle use, supra-sternal or intercostal retractions. No wheezes, crackles. CV: Regular rythm. Heart tones normal. Radial pulses normal. Abd: Non distended. MSK: No kyphoscoliosis. Ext: Warm and well perfused. No clubbing, cyanosis, edema. Skin: No rash, ecchymoses. Neuro: Mental status normal. Affect normal. No tremor. DATA REVIEW: I have personally reviewed the following: PFT, 11/02/2021 IMPRESSION: Spirometry indicates moderate obstruction. Electronically Signed On 11-02-2021 15:39:38 EST by Camila Blake M.D. CT chest with PE protocol, 06/11/2022 IMPRESSION: No CT evidence of pulmonary embolism. No evidence of acute intrathoracic pathology. RESULT: Limitations: None. Evaluation for thromboembolic disease: - Right heart chambers: No thromboembolic disease. - Main pulmonary arteries: No thromboembolic disease. - Lobar pulmonary arteries: No thromboembolic disease. - Segmental pulmonary arteries: No thromboembolic disease. - Subsegmental pulmonary arteries: No thromboembolic disease. - Additional pulmonary artery findings: The main pulmonary artery is normal in caliber. Lines, tubes, and devices: A dual-lead left-sided transvenous pacemaker seen. The leads appear appropriately positioned. Lung parenchyma and airways: No consolidation. Minimal bibasilar atelectasis is noted. No suspicious pulmonary nodule. The central airways are patent. Pleural space: No pleural effusion. No pleural thickening. Lower neck, lymph nodes, and mediastinum: The imaged thyroid gland is normal. No lymphadenopathy in the supraclavicular, axillary, mediastinal, or hilar regions. Heart, pericardium, and thoracic vessels: The thoracic aorta is normal in caliber. The cardiac chambers are normal in size. No coronary artery atherosclerotic calcifications are noted, although the study is not optimized for coronary assessment. No pericardial effusion or thickening. Bones and soft tissues: No destructive bone lesion. Chest wall is unremarkable. Upper abdomen: No abnormality in the imaged upper abdomen. CXR, 06/11/2022 IMPRESSION: Stable chest x-ray. Component Latest Ref Rng & Units 07/31/2021 Alpha 1 Antitrypsin 90 - 200 mg/dL 135 ASSESSMENT/PLAN: 1. COPD with chronic bronchitis (HCC) - ICD9: 491.20, ICD10: J44.9 (primary diagnosis) Normal Alpha-1 Recent hospitalization secondary to AECOPD. Discussed maintenance therapy with triple therapy inhaler, Breztri, however, patient refuses. Copay is $89 per month. I offered to refer him to Gayatri Neal, oncology social worker, to pursue financial assistance with [employer] and he declined. Continue Combivent inhaler Up to date on annual influenza, pneumococcal and Covid 19 vaccines. 2. Chronic hypoxemic respiratory failure (HCC) - ICD9: 518.83, 799.02, ICD10: J96.11 Based on most recent oximetry with ambulation, patient to wear 2L supplemental oxygen with exertion. He does not have a POC despite two previous orders being sent to DME. Continue oxygen at night. - PORTABLE OXYGEN CONCENTRATOR - SPIROMETRY BASELINE ONLY - LUNG DIFFUSION CAPACITY (DLCO) - OXIMETRY WITH AMBULATION 3. СВЕТЛАНА (obstructive sleep apnea) - ICD9: 327.23, ICD10: G47.33 Patient did not go for titration study in 2016 when diagnosed with СВЕТЛАНА. Refusing titration study today. 4. History of COVID-19 - ICD9: V12.09, ICD10: Z86.16 I have discussed the above recommendations in detail with the patient. Patient verbalizes understanding and is in agreement with plan as stated above. Amalia Pritchard PA-C documented in this encounter [facility] 06-17-2022 Miscellaneous Notes Called pt to cancel Hosp F/U appt w/ Interv. Card CROSS CUT SAW OPERATOR and reschedule w/ EP CROSS CUT SAW OPERATOR per Teri Jason - no answer, left vm w/ new appt info: 07/10/22 @ 3:00PM w/ Anton Rock APRN.POOL TABLE MECHANIC @ PO Americo Chambers June 17, 2022 4:12 PM Pt called requesting Hospital Follow-Up appt w/ Jennyfer Cain APRN.POOL TABLE MECHANIC - Pt advised that the [place] office instructed him to call our office to schedule a Hospital F/U appt w/ Radha in about 2-3 weeks. During hospital stay, pt had a Pacemaker implanted by Dr. Tracy. Scheduled Hosp F/U appt for 07/09/22 @ 3:00pm Fwd to Mechanical Service Representative and Intervention Cardiology [place] to review and advise if Hospital F/U w/ Interv. Card. is appropriate, or if pt should just f/u w/ EP. Americo Chambers June 17, 2022 11:44 AM documented in this encounter [facility] 06-14-2022 Nurse Note Patient states in phone conversation for one week wound check after device implant on 06-06-[address] Tracy. Left chest incision well approximated with steri strips intact. He states there is no redness, drainage, swelling, or bruising in device site. He states he is afebrile with no discomfort at the site. I went over instructions concerning no lifting over 10lb until device clinic follow up appointment in 6 weeks. Device Clinic appt is on 07-23-2022 and patient was reminded of appointment. He knows he may shower and to let the steri strips fall off on their own. Lenoer Wong LPN documented in this encounter [facility] 06-13-2022 History of Presen t illness Narrative TRANSITIONAL CARE MANAGEMENT (TCM) COMMUNITY MONITORING PROGRAM Provider Action/FYI: 2nd Outreach attempt, NA left message to call PCP to schedule a f/u and/or if there is any questions/concerns about his d/c instructions SUMMARY: Pt discharged from [facility] on 06/12/22. Admitted for: COPD Contact made with patient: No - 2nd unsuccessful attempt - end outreach and close encounter Outreach ended TCM Home Visit Referral Source of Stratification: [facility] Admission Status: Discharged Readmission Risk Score: 16 LAVONNE Score: 9 Program referral criteria met: Does not meet referral criteria Patient does not qualify for High Risk TCM Home Visit program due to: Does not meet referral criteria Patient does not quality for High Risk TCM Home Visit Program due to: Does not meet referral criteria Preferred contact number: [phone] Is patient staying somewhere other than the listed home address: No Dialysis Patient: No TRANSITIONAL CARE MANAGEMENT (TCM) COMMUNITY MONITORING PROGRAM Provider Action/FYI: 1st Outreach attempt, NA left message will try again any urgent needs/questions please call PCP Pt NEEDS f/u with PCP, TCM Eligible through 06/26 SUMMARY: Pt discharged from [facility] on 06/12/22. Admitted for: COPD Contact made with patient: No - next outreach attempt will be on next day Outreach ended documented in this encounter [facility] 06-11-2022 History of Presen t illness Narrative POPULATION HEALTH NAVIGATION OUTREACH Action/FYI Patient returned call. He is actually on his way back to the hospital due to problems breathing. POPULATION HEALTH NAVIGATION OUTREACH Action/FYI Left message and sent My Chart message to schedule hospital follow up. Postpone to follow up in 2 days Pt identified by name and : NO Outreach Outcome/Action Unable to reach patient: Left message MyChart message sent Did you use a PCP flex slot to schedule this appointment? N/A Reason for Outreach Community Monitoring Pool Payer: Payor: MMO MEDICARE / Plan: MMO MEDADVANTAGE HMO / Product Type: HMO / Care Gap Reviewed:: Follow-up appointment Reminder: Reminder note to check Health Maintenance for items below Health Maintenance items due: ABDOMINAL AORTIC ANEURYSM SCREENING Never done BP CONTROLLED (<130/80) Never done LUNG CANCER SCREENING Never done SHINGRIX VACCINE(1 of 2) Never done PROSTATE CANCER SCREENING DISCUSSION due on 11/23/2018 ADVANCE DIRECTIVE DISCUSSION Never done COVID-19 VACCINE(4 - Booster for Moderna series) due on 06/14/2022 Message Sent to Practice: No Navigation Signature: Zora Singleton June 11, 2022 9:59 AM TRANSITION CARE MANAGEMENT (TCM) FOLLOW-UP NOTE Provider Action/FYI Chart reviewed. Pt spoke with Virtualist Dr Winter yesterday and was told to go to ED. Per chart notes, pt did not go to the ED. Unable to reach patient-left voicemail. Will continue to follow. SCHEDULING: pt needs follow-up appt with PCP renaldo=patient eligible for TCM thru 06/21/22 Summary: Pt discharged from [facility] on 06/07/22. Admitted for: complete heart block Concerns: Pt instructed to go to ED by physician since oxygen requirement went up to 5 liters and low pulse ox. Pt had recent PPM placed. Needs PCP appt. Caterpillar Operator plan for next outreach: Will continue to follow. Signature Joyce Sheppard RN June 11, 2022 documented in this encounter [facility] 06-10-2022 History of Presen t illness Narrative Virtualist Distance Health Note (Community monitoring/CC HC/H@HCC escalations) Adult seen for Monitoring Track: TCM Contacted by phone, FaceTime, Google Duo, Zoom, Doximity, other: phone 2:40pm -- no answer, left VM 4:29pm -- answered History of present illness: Patient is reporting not feeling well since pacemaker placed 06/05. He is having SOB and increased O2 requirement. Prior to admission, he was using 3L NC O2 prn exertion. Now he is using 5L NC O2 all the time. His PO currently is 91% (on 5L). He tried taking it off earlier today and it dropped into the 80s. admitted 06/05-06/07: 66-year-old male patient was transferred from [place] ED for complete heart block. Patient was admitted and EP was consulted and patient is s/p pacemaker placement on 06/06/2022. There was a concern for diplopia, neurology was consulted. Patient had CTA head and neck outside which showed mild right ICA stenosis 50%. MRI brain was ordered but could not be done due to new pacemaker placement and will have to wait at least 6 weeks. Discussed with neurology, recommended to order acetyl choline receptor binding antibodies to rule out MG and outpatient follow-up with neurology team. Patient will be discharged today. Advised the patient follow-up with his PCP, cardiology and neurology as outpatient. Past medical history, past surgical history, family history and social history reviewed and updated as indicated in EMR. REVIEW OF SYSTEMS: Review of Systems VITAL SIGNS: (if available) There were no vitals taken for this visit. Physical Exam (if video visit was performed) Physical Exam pleasant, awake and alert Assessment/Plan: hypoxia Disposition: Patient instructed to go to the ED A total of 12 minutes was spent providing medical care using telemedicine. [place] [id number] association Signed in as Primary Virtualist, Secondary Virtualist, or [facility] Telehealth provider: Primary SIGNATURE: Tammy Winter MD PATIENT NAME: Gabriel Sanchez DATE: June 10, 2022 documented in this encounter [facility] 06-10-2022 History of Presen t illness Narrative TRANSITIONAL CARE MANAGEMENT (TCM) COMMUNITY MONITORING PROGRAM Provider Action/FYI: Pt is s/p PPM placement Pt returned call, states he feels ok, no chest pain, some discomfort from the incision site but tolerable, having increased sob, states he was on 3 liters PRN with exertion, since discharge he has had to be on 5 liters continuous-current pulse ox 91%, no BLE edema, no fever/chills, has not weighed himself this morning=paged virtualist SUMMARY: Pt discharged from [facility] on 06/07/22. Admitted for: complete heart block Contact made with patient: Yes Hi my name is Joyce Sheppard RN and I am calling from the [facility] on behalf of your PCP, Radha Lebron MD I understand you were recently in the hospital so I am calling to check in with you to ensure you are feeling well now that you're home. May I ask you a few questions related to your hospital stay and well-being? Yes Contact with patient post discharge, spoke to patient. Patient identified by name and . Do you feel your health is BETTER, WORSE, or the SAME since leaving the hospital? Worse ACTION TAKEN: Patient indicated symptoms are worse - Page Virtualist at and indicate 'TCM patient', MRN, Patient Name, Patient Concern, and patient's preferred method of contact (telephone, FaceTime, Google Duo), your name, your contact number. Informed patient that you recommend further assessment from a provider to review symptoms. I have sent a page for the provider to contact you today. If you haven't heard from that provider and still have concerns, please contact you PCP's office right away. Indicated TCM patient and symptoms in the FYI box and sent alpha page to Virtualist to to contact the patient. Route to virtualist carrying the pager. End outreach/Phone call Outreach Ended TCM Home Visit Referral Source of Stratification: [facility] Admission Status: Discharged Readmission Risk Score: 10 LAVONNE Score: 8 Program referral criteria met: Does not meet referral criteria Patient does not qualify for High Risk TCM Home Visit program due to: Does not meet referral criteria Patient does not quality for High Risk TCM Home Visit Program due to: Does not meet referral criteria Preferred contact number: [phone] Is patient staying somewhere other than the listed home address: No Dialysis Patient: No TRANSITIONAL CARE MANAGEMENT (TCM) COMMUNITY MONITORING PROGRAM Provider Action/FYI: Pt is s/p pacemaker placement Needs PCP f/u appt Unable to reach patient-left voicemail-1st attempt SUMMARY: Pt discharged from [facility] on 06/07/22. Admitted for: complete heart block Contact made with patient: No - next outreach attempt will be on next day Outreach ended TCM Home Visit Referral Source of Stratification: [facility] Admission Status: Discharged Readmission Risk Score: 10 LAVONNE Score: 8 Program referral criteria met: Does not meet referral criteria Patient does not qualify for High Risk TCM Home Visit program due to: Does not meet referral criteria Patient does not quality for High Risk TCM Home Visit Program due to: Does not meet referral criteria Preferred contact number: [phone] Is patient staying somewhere other than the listed home address: No Dialysis Patient: No documented in this encounter [facility] 06-10-2022 Miscellaneous Notes Spoke to pt. Scheduled for device check at July 23. Hillary Murphy RN Patient called stating he was discharged from [facility] on 06/07. He states he is to schedule a 6 week check at the [place] [facility] for pacemaker. Please advise. Patient unsure if he is to contact [facility] or someone at [facility]. documented in this encounter [facility] 06-07-2022 Miscellaneous Notes Wound check scheduled Salud Correa Patient underwent implantation of permanent pacemaker with Dr. Tracy on 06/06/2022. He will need a wound check phone call in 1 week. 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 Anton Wilks documented in this encounter [facility] 02-14-2022 History of Presen t illness Narrative [facility] CDM Enrollment Provider Action/FYI: Sarah mahan introduction message recently read. 4th attempt to enroll patient in insight program Patient referred by: [facility] Contact made with patient: No - 2nd attempt to reach patient, left another message: Hi my name is Esther Holt RN and I am calling from the [facility] on behalf of your PCP, Radha Lebron MD. We are excited to share with you a new program to help you manage your health. Please call me back at [phone]. I hope you can take the time to speak with me. (Keep encounter open for additional two business days in case patient calls back. Close encounter if no response by end of second business day) Closing: Could not reach the patient after two attempted outreaches. Caterpillar Operator to retry patient in one week. END OUTREACH documented in this encounter [facility] 02-14-2022 Miscellaneous Notes Detailed message left on identified voicemail. Hillary Murphy RN ----- Message from Jennyfer Cain APRN.POOL TABLE MECHANIC sent at 02/13/2022 8:46 AM EDT ----- Please call patient and notify them of results. LDL cholesterol with good control at 66. Thank you! documented in this encounter [facility] 01-31-2022 Procedure note Associated Order(s): OXIMETRY WITH AMBULATION RESPIRATORY THERAPY OXIMETRY WITH AMBULATION Oximetry with Ambulation Test for This Encounter O2 Device O2 Adapter NC O2 Flow SpO2% HR Activity Ft Walked (ft) Time (min) Avg Speed (MPH) R/A 94 107 Resting R/A 87 122 Walking, usual pace 100 1 1.14 NC 2 94 102 Resting NC 2 90 126 Walking, usual pace 300 3 1.14 General Information Pulse Oximetry Site Total Time Spent O2 Supply Carrier Walking Assistance/Device Forehead 30 3 Wheel Walker NAME: Indy Ospina RRT PATIENT NAME: Gabriel Sanchez DATE: January 31, 2022 TIME: 2:21 PM Comment: documented in this encounter [facility] 01-31-2022 History of Presen t illness Narrative [facility] [place], 01/31/2022: Patient: Gabriel Sanchez : 1955 The patient is here today by himself. HPI: Gabriel Sanchez is a 66 yo male with pmh significant for ID, CAD, hyperlipidemia, HTN, diverticulitis, colon CA, COPD and chronic hypoxemic respiratory failure. Former smoker, quit 2015. 67.5 pack years. The patient is here for follow up of COPD. Since the last Pulmonary Clinic visit 11/02/2021, the patient has not required ED care for exacerbation. There has been no hospital admission for exacerbation. Using Combivent rescue bronchodilator 1-6 times per day depending on symptoms. Stopped taking Breztri because he read that it may cause pneumonia. Has not been on it for approximately 2 weeks. Daily cough. Typically non-productive. No hemoptysis. Variable wheezing. No dyspnea at rest. Exertional dyspnea has not changed. Currently wearing 3 L supplemental oxygen at night. Does not have supplemental oxygen with him today. DME: [employer]. Patient is out of house frequently for doctors appointments and errands. Does not have a portable oxygen concentrator. PMH: Updated with patient today. FAMH: Updated with patient today. SOCH: Updated with patient today. IMMUNIZATIONS Prevnar - 12/17/2018 Pneumovax 23 - 08/11/2021, 08/31/2008 Influenza - 08/11/2021 COVID-19 - 02/01/2021, 01/04/2021 ROS: See HPI. Otherwise negative. Allergies were reviewed and updated, and medications were reconciled with the patient. PHYSICAL EXAMINATION: BP 123/58 (BP Site: Right Arm, BP Position: Sitting, BP Cuff Size: Large Adult) Pulse 81 Wt 120.7 kg (266 lb) SpO2 90% BMI 40.45 kg/m Gen: No acute distress. Cooperative with examination. ENT: Oral hygeine and dentition good. Pharynx clear. No halitosis. Resp: No stridor, accessory respiratory muscle use, supra-sternal or intercostal retractions. No wheezes, crackles. CV: Regular rythm. Heart tones normal. Radial pulses normal. Abd: Non distended. MSK: No kyphoscoliosis. Ext: Warm and well perfused. No clubbing, cyanosis, edema. Skin: No rash, ecchymoses. Neuro: Mental status normal. Affect normal. No tremor. DATA REVIEW: Oximetry, 01/31/2022 Oximetry with Ambulation Test for This Encounter O2 Device O2 Adapter NC O2 Flow SpO2% HR Activity Ft Walked (ft) Time (min) Avg Speed (MPH) R/A 94 107 Resting R/A 87 122 Walking, usual pace 100 1 1.14 NC 2 94 102 Resting NC 2 90 126 Walking, usual pace 300 3 1.14 ASSESSMENT/PLAN: 1. Centrilobular emphysema (HCC) - ICD9: 492.8, ICD10: J43.2 (primary diagnosis) Encouraged patient to restart maintenance therapy Breztri 2 inhalations twice daily. Rinse mouth after each use to help prevent oral thrush. Combivent 1 inhalation up to four times daily for wheezing/shortness of breath. Up to date on annual influenza, pneumococcal and COVID 19 vaccines. 2. Chronic hypoxemic respiratory failure (HCC) - ICD9: 518.83, 799.02, ICD10: J96.11 Reviewed oximetry with ambulation with patient. Based on results, patient does not require supplemental oxygen at rest, but does require 2 LPM with exertion. Patient needs portable oxygen. Check nocturnal oximetry on RA. Further recommendations to follow. 3. History of COVID-19 - ICD9: V12.09, ICD10: Z86.16 I addressed the questions of the patient, and he expressed understanding and acceptance of my answers. Amalia Pritchard PA-C documented in this encounter [facility] 01-31-2022 History of Presen t illness Narrative PULM FUNCTION SMARTBLOCK: Provider: Amalia Pritchard PA-C Assisting Tech: Indy Ospina RRT Oximetry - Ambulation: 1 System: [id number] documented in this encounter [facility] 01-11-2022 Miscellaneous Notes Pt notified via Populr to [facility]. These were refilled Nov 2021. Fannie Candelario Ma documented in this encounter [facility] 01-11-2022 Miscellaneous Notes Patient's request for medication is as follows: Pending Prescriptions Disp Refills BREZTRI AEROSPHERE 160 MCG-9MCG-4.8MCG/ACTUATION HFA AEROSOL INHALER 160 g 3 Sig: Inhale 2 Puffs as instructed twice daily. ALLISON: No AGATA: 11/02/2021 Please approve the above prescription(s) to electronically send to pharmacy. 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 Colon cancer 10/31/2010 11/09/2012 Abdominal pain, left lower quadrant 10/31/2010 03/26/2011 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 05/23/2015 Malignant neoplasm of colon 10/31/201005/22 documented as of this encounter (statuses as of 01/11/2022) [facility] History of Past illness Narrative* Problem Noted Date Resolved Date Appendicitis 07/21/2016 12/17/2017 Rectal bleeding 09/22/2013 05/23/2015 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 04/08/20 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 Colon cancer 10/31/2010 11/09/2012 Abdominal pain, left lower quadrant 10/31/2010 03/26/2011 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 05/23/2015 Malignant neoplasm of colon 10/31/201005/22 documented as of this encounter (statuses as of 01/31/2022) [facility] History of Past illness Narrative* Problem Noted Date Resolved Date Appendicitis 07/21/2016 12/17/2017 Rectal bleeding 09/22/2013 05/23/2015 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 04/08/20 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 Colon cancer 10/31/2010 11/09/2012 Abdominal pain, left lower quadrant 10/31/2010 03/26/2011 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 05/23/2015 Malignant neoplasm of colon 10/31/201005/22 documented as of this encounter (statuses as of 02/01/2022) [facility] History of Past illness Narrative* Problem Noted Date Resolved Date Appendicitis 07/21/2016 12/17/2017 Rectal bleeding 09/22/2013 05/23/2015 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 04/08/20 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 Colon cancer 10/31/2010 11/09/2012 Abdominal pain, left lower quadrant 10/31/2010 03/26/2011 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 05/23/2015 Malignant neoplasm of colon 10/31/201005/22 documented as of this encounter (statuses as of 02/14/2022) [facility]2016 History of Past illness Narrative* Problem Noted Date Resolved Date Appendicitis 07/21/2016 12/17/2017 Rectal bleeding 09/22/2013 05/23/2015 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 04/08/20 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 Colon cancer 10/31/2010 11/09/2012 Abdominal pain, left lower quadrant 10/31/2010 03/26/2011 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 05/23/2015 Malignant neoplasm of colon 10/31/201005/22 documented as of this encounter (statuses as of 02/19/2022) [facility] History of Past illness Narrative* Problem Noted Date Resolved Date Appendicitis 07/21/2016 12/17/2017 Rectal bleeding 09/22/2013 05/23/2015 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 04/08/20 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 Colon cancer 10/31/2010 11/09/2012 Abdominal pain, left lower quadrant 10/31/2010 03/26/2011 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 05/23/2015 Malignant neoplasm of colon 10/31/201005/22 documented as of this encounter (statuses as of 06/07/2022) [facility] History of Past illness Narrative* Problem Noted Date Resolved Date Appendicitis 07/21/2016 12/17/2017 Rectal bleeding 09/22/2013 05/23/2015 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 04/08/20 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 Colon cancer 10/31/2010 11/09/2012 Abdominal pain, left lower quadrant 10/31/2010 03/26/2011 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 05/23/2015 Malignant neoplasm of colon 10/31/201005/22 documented as of this encounter (statuses as of 06/10/2022) [facility] History of Past illness Narrative* Problem Noted Date Resolved Date Appendicitis 07/21/2016 12/17/2017 Rectal bleeding 09/22/2013 05/23/2015 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 04/08/20 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 Colon cancer 10/31/2010 11/09/2012 Abdominal pain, left lower quadrant 10/31/2010 03/26/2011 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 05/23/2015 Malignant neoplasm of colon 10/31/201005/22 documented as of this encounter (statuses as of 06/10/2022) [facility] History of Past illness Narrative* Problem Noted Date Resolved Date Appendicitis 07/21/2016 12/17/2017 Rectal bleeding 09/22/2013 05/23/2015 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 04/08/20 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 Colon cancer 10/31/2010 11/09/2012 Abdominal pain, left lower quadrant 10/31/2010 03/26/2011 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 05/23/2015 Malignant neoplasm of colon 10/31/201005/22 documented as of this encounter (statuses as of 06/11/2022) [facility] History of Past illness Narrative* Problem Noted Date Resolved Date Appendicitis 07/21/2016 12/17/2017 Rectal bleeding 09/22/2013 05/23/2015 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 04/08/20 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 Colon cancer 10/31/2010 11/09/2012 Abdominal pain, left lower quadrant 10/31/2010 03/26/2011 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 05/23/2015 Malignant neoplasm of colon 10/31/201005/22 documented as of this encounter (statuses as of 06/12/2022) [facility] History of Past illness Narrative* Problem Noted Date Resolved Date Appendicitis 07/21/2016 12/17/2017 Rectal bleeding 09/22/2013 05/23/2015 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 04/08/20 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 Colon cancer 10/31/2010 11/09/2012 Abdominal pain, left lower quadrant 10/31/2010 03/26/2011 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 05/23/2015 Malignant neoplasm of colon 10/31/201005/22 documented as of this encounter (statuses as of 06/14/2022) [facility] History of Past illness Narrative* Problem Noted Date Resolved Date Appendicitis 07/21/2016 12/17/2017 Rectal bleeding 09/22/2013 05/23/2015 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 04/08/20 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 Colon cancer 10/31/2010 11/09/2012 Abdominal pain, left lower quadrant 10/31/2010 03/26/2011 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 05/23/2015 Malignant neoplasm of colon 10/31/201005/22 documented as of this encounter (statuses as of 06/17/2022) [facility] History of Past illness Narrative* Problem Noted Date Resolved Date Appendicitis 07/21/2016 12/17/2017 Rectal bleeding 09/22/2013 05/23/2015 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 04/08/20 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 Colon cancer 10/31/2010 11/09/2012 Abdominal pain, left lower quadrant 10/31/2010 03/26/2011 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 05/23/2015 Malignant neoplasm of colon 10/31/201005/22 documented as of this encounter (statuses as of 06/17/2022) [facility] History of Past illness Narrative* Problem Noted Date Resolved Date Appendicitis 07/21/2016 12/17/2017 Rectal bleeding 09/22/2013 05/23/2015 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 04/08/20 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 Colon cancer 10/31/2010 11/09/2012 Abdominal pain, left lower quadrant 10/31/2010 03/26/2011 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 05/23/2015 Malignant neoplasm of colon 10/31/201005/22 documented as of this encounter (statuses as of 06/20/2022) [facility] History of Past illness Narrative* Problem Noted Date Resolved Date Appendicitis 07/21/2016 12/17/2017 Rectal bleeding 09/22/2013 05/23/2015 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 04/08/20 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 Colon cancer 10/31/2010 11/09/2012 Abdominal pain, left lower quadrant 10/31/2010 03/26/2011 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 05/23/2015 Malignant neoplasm of colon 10/31/201005/22 documented as of this encounter (statuses as of 06/20/2022) [facility] History of Past illness Narrative* Problem Noted Date Resolved Date Appendicitis 07/21/2016 12/17/2017 Rectal bleeding 09/22/2013 05/23/2015 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 04/08/20 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 Colon cancer 10/31/2010 11/09/2012 Abdominal pain, left lower quadrant 10/31/2010 03/26/2011 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 05/23/2015 Malignant neoplasm of colon 10/31/201005/22 documented as of this encounter (statuses as of 06/25/2022) [facility] History of Past illness Narrative* Problem Noted Date Resolved Date Appendicitis 07/21/2016 12/17/2017 Rectal bleeding 09/22/2013 05/23/2015 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 04/08/20 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 Colon cancer 10/31/2010 11/09/2012 Abdominal pain, left lower quadrant 10/31/2010 03/26/2011 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 05/23/2015 Malignant neoplasm of colon 10/31/201005/22 documented as of this encounter (statuses as of 06/26/2022) [facility] History of Past illness Narrative* Problem Noted Date Resolved Date Appendicitis 07/21/2016 12/17/2017 Rectal bleeding 09/22/2013 05/23/2015 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 04/08/20 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 Colon cancer 10/31/2010 11/09/2012 Abdominal pain, left lower quadrant 10/31/2010 03/26/2011 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 05/23/2015 Malignant neoplasm of colon 10/31/201005/22 documented as of this encounter (statuses as of 07/05/2022) [facility] History of Past illness Narrative* Problem Noted Date Resolved Date Appendicitis 07/21/2016 12/17/2017 Rectal bleeding 09/22/2013 05/23/2015 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 04/08/20 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 Colon cancer 10/31/2010 11/09/2012 Abdominal pain, left lower quadrant 10/31/2010 03/26/2011 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 05/23/2015 Malignant neoplasm of colon 10/31/201005/22 documented as of this encounter (statuses as of 07/09/2022) [facility] History of Past illness Narrative* Problem Noted Date Resolved Date Appendicitis 07/21/2016 12/17/2017 Rectal bleeding 09/22/2013 05/23/2015 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 04/08/20 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 Colon cancer 10/31/2010 11/09/2012 Abdominal pain, left lower quadrant 10/31/2010 03/26/2011 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 05/23/2015 Malignant neoplasm of colon 10/31/201005/22 documented as of this encounter (statuses as of 07/10/2022) [facility] History of Past illness Narrative* Problem Noted Date Resolved Date Appendicitis 07/21/2016 12/17/2017 Rectal bleeding 09/22/2013 05/23/2015 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 04/08/20 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 Colon cancer 10/31/2010 11/09/2012 Abdominal pain, left lower quadrant 10/31/2010 03/26/2011 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 05/23/2015 Malignant neoplasm of colon 10/31/201005/22 documented as of this encounter (statuses as of 07/11/2022) [facility] History of Past illness Narrative* Problem Noted Date Resolved Date Appendicitis 07/21/2016 12/17/2017 Rectal bleeding 09/22/2013 05/23/2015 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 04/08/20 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 Colon cancer 10/31/2010 11/09/2012 Abdominal pain, left lower quadrant 10/31/2010 03/26/2011 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 05/23/2015 Malignant neoplasm of colon 10/31/201005/22 documented as of this encounter (statuses as of 07/15/2022) [facility] History of Past illness Narrative* Problem Noted Date Resolved Date Appendicitis 07/21/2016 12/17/2017 Rectal bleeding 09/22/2013 05/23/2015 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 04/08/20 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 Colon cancer 10/31/2010 11/09/2012 Abdominal pain, left lower quadrant 10/31/2010 03/26/2011 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 05/23/2015 Malignant neoplasm of colon 10/31/201005/22 documented as of this encounter (statuses as of 07/23/2022) [facility] History of Past illness Narrative* Problem Noted Date Resolved Date Appendicitis 07/21/2016 12/17/2017 Rectal bleeding 09/22/2013 05/23/2015 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 04/08/20 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 Colon cancer 10/31/2010 11/09/2012 Abdominal pain, left lower quadrant 10/31/2010 03/26/2011 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 05/23/2015 Malignant neoplasm of colon 10/31/201005/22 documented as of this encounter (statuses as of 09/03/2022) [facility] History of Past illness Narrative* Problem Noted Date Resolved Date Appendicitis 07/21/2016 12/17/2017 Rectal bleeding 09/22/2013 05/23/2015 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 04/08/20 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 Colon cancer 10/31/2010 11/09/2012 Abdominal pain, left lower quadrant 10/31/2010 03/26/2011 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 05/23/2015 Malignant neoplasm of colon 10/31/201005/22 documented as of this encounter (statuses as of 09/06/2022) [facility] History of Past illness Narrative* Problem Noted Date Resolved Date Appendicitis 07/21/2016 12/17/2017 Rectal bleeding 09/22/2013 05/23/2015 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 04/08/20 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 Colon cancer 10/31/2010 11/09/2012 Abdominal pain, left lower quadrant 10/31/2010 03/26/2011 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 05/23/2015 Malignant neoplasm of colon 10/31/201005/22 documented as of this encounter (statuses as of 09/09/2022) [facility] History of Past illness Narrative* Problem Noted Date Resolved Date Appendicitis 07/21/2016 12/17/2017 Rectal bleeding 09/22/2013 05/23/2015 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 04/08/20 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 Colon cancer 10/31/2010 11/09/2012 Abdominal pain, left lower quadrant 10/31/2010 03/26/2011 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 05/23/2015 Malignant neoplasm of colon 10/31/201005/22 documented as of this encounter (statuses as of 09/10/2022) [facility] History of Past illness Narrative* Problem Noted Date Resolved Date Appendicitis 07/21/2016 12/17/2017 Rectal bleeding 09/22/2013 05/23/2015 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 04/08/20 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 Colon cancer 10/31/2010 11/09/2012 Abdominal pain, left lower quadrant 10/31/2010 03/26/2011 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 05/23/2015 Malignant neoplasm of colon 10/31/201005/22 documented as of this encounter (statuses as of 09/16/2022) [facility] History of Past illness Narrative* Problem Noted Date Resolved Date Appendicitis 07/21/2016 12/17/2017 Rectal bleeding 09/22/2013 05/23/2015 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 04/08/20 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 Colon cancer 10/31/2010 11/09/2012 Abdominal pain, left lower quadrant 10/31/2010 03/26/2011 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 05/23/2015 Malignant neoplasm of colon 10/31/201005/22 documented as of this encounter (statuses as of 09/25/2022) [facility] History of Past illness Narrative* Problem Noted Date Resolved Date Appendicitis 07/21/2016 12/17/2017 Rectal bleeding 09/22/2013 05/23/2015 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 04/08/20 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 Colon cancer 10/31/2010 11/09/2012 Abdominal pain, left lower quadrant 10/31/2010 03/26/2011 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 05/23/2015 Malignant neoplasm of colon 10/31/201005/22 documented as of this encounter (statuses as of 09/25/2022) [facility] History of Past illness Narrative* Problem Noted Date Resolved Date Appendicitis 07/21/2016 12/17/2017 Rectal bleeding 09/22/2013 05/23/2015 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 04/08/20 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 Colon cancer 10/31/2010 11/09/2012 Abdominal pain, left lower quadrant 10/31/2010 03/26/2011 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 05/23/2015 Malignant neoplasm of colon 10/31/201005/22 documented as of this encounter (statuses as of 11/28/2022) [facility] History of Past illness Narrative* Problem Noted Date Resolved Date Appendicitis 07/21/2016 12/17/2017 Rectal bleeding 09/22/2013 05/23/2015 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 04/08/20 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 Colon cancer 10/31/2010 11/09/2012 Abdominal pain, left lower quadrant 10/31/2010 03/26/2011 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 05/23/2015 Malignant neoplasm of colon 10/31/201005/22 documented as of this encounter (statuses as of 11/28/2022) [facility] History of Past illness Narrative* Problem Noted Date Resolved Date Appendicitis 07/21/2016 12/17/2017 Rectal bleeding 09/22/2013 05/23/2015 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 04/08/20 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 Colon cancer 10/31/2010 11/09/2012 Abdominal pain, left lower quadrant 10/31/2010 03/26/2011 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 05/23/2015 Malignant neoplasm of colon 10/31/201005/22 documented as of this encounter (statuses as of 12/20/2022) [facility] History of Past illness Narrative* Problem Noted Date Resolved Date Appendicitis 07/21/2016 12/17/2017 Rectal bleeding 09/22/2013 05/23/2015 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 04/08/20 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 Colon cancer 10/31/2010 11/09/2012 Abdominal pain, left lower quadrant 10/31/2010 03/26/2011 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 05/23/2015 Malignant neoplasm of colon 10/31/201005/22 documented as of this encounter (statuses as of 12/20/2022) [facility] History of Past illness Narrative* Problem Noted Date Resolved Date Appendicitis 07/21/2016 12/17/2017 Rectal bleeding 09/22/2013 05/23/2015 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 04/08/20 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 Colon cancer 10/31/2010 11/09/2012 Abdominal pain, left lower quadrant 10/31/2010 03/26/2011 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 05/23/2015 Malignant neoplasm of colon 10/31/201005/22 documented as of this encounter (statuses as of 02/10/2023) [facility] History of Past illness Narrative* Problem Noted Date Resolved Date Appendicitis 07/21/2016 12/17/2017 Rectal bleeding 09/22/2013 05/23/2015 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 04/08/20 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 Colon cancer 10/31/2010 11/09/2012 Abdominal pain, left lower quadrant 10/31/2010 03/26/2011 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 05/23/2015 Malignant neoplasm of colon 10/31/201005/22 documented as of this encounter (statuses as of 02/18/2023) [facility] History of Past illness Narrative* Problem Noted Date Resolved Date Appendicitis 07/21/2016 12/17/2017 Rectal bleeding 09/22/2013 05/23/2015 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 04/08/20 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 Colon cancer 10/31/2010 11/09/2012 Abdominal pain, left lower quadrant 10/31/2010 03/26/2011 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 05/23/2015 Malignant neoplasm of colon 10/31/201005/22 documented as of this encounter (statuses as of 02/27/2023) [facility] History of Past illness Narrative* Problem Noted Date Resolved Date Appendicitis 07/21/2016 12/17/2017 Rectal bleeding 09/22/2013 05/23/2015 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 04/08/20 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 Colon cancer 10/31/2010 11/09/2012 Abdominal pain, left lower quadrant 10/31/2010 03/26/2011 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 05/23/2015 Malignant neoplasm of colon 10/31/201005/22 documented as of this encounter (statuses as of 03/25/2023) [facility] History of Past illness Narrative* Problem Noted Date Resolved Date Appendicitis 07/21/2016 12/17/2017 Rectal bleeding 09/22/2013 05/23/2015 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 04/08/20 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 Colon cancer 10/31/2010 11/09/2012 Abdominal pain, left lower quadrant 10/31/2010 03/26/2011 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 05/23/2015 Malignant neoplasm of colon 10/31/201005/22 documented as of this encounter (statuses as of 03/26/2023) [facility] History of Past illness Narrative* Problem Noted Date Resolved Date Appendicitis 07/21/2016 12/17/2017 Rectal bleeding 09/22/2013 05/23/2015 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 04/08/20 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 Colon cancer 10/31/2010 11/09/2012 Abdominal pain, left lower quadrant 10/31/2010 03/26/2011 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 05/23/2015 Malignant neoplasm of colon 10/31/201005/22 documented as of this encounter (statuses as of 03/26/2023) [facility] History of Past illness Narrative* Problem Noted Date Diagnosed Date Resolved Date Appendicitis 07/21/2016 12/17/2017 Rectal bleeding 09/22/2013 05/23/2015 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03/21 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 0 Colon cancer 10/31/2010 11/09/2012 Abdominal pain, left lower quadrant 10/31/2010 03/26/2011 Benign neoplasm of rectum and anal canal 10/31/2010 05/23/2015 Malignant neoplasm of colon 10/31/2010 06/19/2020 documented as of this encounter (statuses as of 05/29/2023) [facility] History of Past illness Narrative* Problem Noted Date Diagnosed Date Resolved Date Appendicitis 07/21/2016 12/17/2017 Rectal bleeding 09/22/2013 05/23/2015 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 062 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 0 Colon cancer 10/31/2010 11/09/2012 Abdominal pain, left lower quadrant 10/31/2010 03/26/2011 Benign neoplasm of rectum and anal canal 10/31/2010 05/23/2015 Malignant neoplasm of colon 10/31/2010 06/19/2020 documented as of this encounter (statuses as of 05/29/2023) [facility] History of Past illness Narrative* Problem Noted Date Diagnosed Date Resolved Date Appendicitis 07/21/2016 12/17/2017 Rectal bleeding 09/22/2013 05/23/2015 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 062 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 0 Colon cancer 10/31/2010 11/09/2012 Abdominal pain, left lower quadrant 10/31/2010 03/26/2011 Benign neoplasm of rectum and anal canal 10/31/2010 05/23/2015 Malignant neoplasm of colon 10/31/2010 06/19/2020 documented as of this encounter (statuses as of 06/18/2023) [facility] History of Past illness Narrative* Problem Noted Date Diagnosed Date Resolved Date Appendicitis 07/21/2016 12/17/2017 Rectal bleeding 09/22/2013 05/23/2015 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 062 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 0 Colon cancer 10/31/2010 11/09/2012 Abdominal pain, left lower quadrant 10/31/2010 03/26/2011 Benign neoplasm of rectum and anal canal 10/31/2010 05/23/2015 Malignant neoplasm of colon 10/31/2010 06/19/2020 documented as of this encounter (statuses as of 06/27/2023) [facility] History of Past illness Narrative* Problem Noted Date Diagnosed Date Resolved Date Appendicitis 07/21/2016 12/17/2017 Rectal bleeding 09/22/2013 05/23/2015 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 062 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 0 Colon cancer 10/31/2010 11/09/2012 Abdominal pain, left lower quadrant 10/31/2010 03/26/2011 Benign neoplasm of rectum and anal canal 10/31/2010 05/23/2015 Malignant neoplasm of colon 10/31/2010 06/19/2020 documented as of this encounter (statuses as of 07/08/2023) [facility] History of Past illness Narrative* Problem Noted Date Diagnosed Date Resolved Date Appendicitis 07/21/2016 12/17/2017 Rectal bleeding 09/22/2013 05/23/2015 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 06/2 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 0 Colon cancer 10/31/2010 11/09/2012 Abdominal pain, left lower quadrant 10/31/2010 03/26/2011 Benign neoplasm of rectum and anal canal 10/31/2010 05/23/2015 Malignant neoplasm of colon 10/31/2010 06/19/2020 documented as of this encounter (statuses as of 07/08/2023) [facility] History of Past illness Narrative* Problem Noted Date Diagnosed Date Resolved Date Appendicitis 07/21/2016 12/17/2017 Rectal bleeding 09/22/2013 05/23/2015 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 06/2 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 0 Colon cancer 10/31/2010 11/09/2012 Abdominal pain, left lower quadrant 10/31/2010 03/26/2011 Benign neoplasm of rectum and anal canal 10/31/2010 05/23/2015 Malignant neoplasm of colon 10/31/2010 06/19/2020 documented as of this encounter (statuses as of 08/28/2023) [facility] History of Past illness Narrative* Problem Noted Date Diagnosed Date Resolved Date Appendicitis 07/21/2016 12/17/2017 Rectal bleeding 09/22/2013 05/23/2015 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 06/2 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 0 Colon cancer 10/31/2010 11/09/2012 Abdominal pain, left lower quadrant 10/31/2010 03/26/2011 Benign neoplasm of rectum and anal canal 10/31/2010 05/23/2015 Malignant neoplasm of colon 10/31/2010 06/19/2020 documented as of this encounter (statuses as of 08/28/2023) [facility] History of Past illness Narrative* Problem Noted Date Diagnosed Date Resolved Date Appendicitis 07/21/2016 12/17/2017 Rectal bleeding 09/22/2013 05/23/2015 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 062 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 0 Colon cancer 10/31/2010 11/09/2012 Abdominal pain, left lower quadrant 10/31/2010 03/26/2011 Benign neoplasm of rectum and anal canal 10/31/2010 05/23/2015 Malignant neoplasm of colon 10/31/2010 06/19/2020 documented as of this encounter (statuses as of 09/04/2023) [facility] History of Past illness Narrative* Problem Noted Date Diagnosed Date Resolved Date Appendicitis 07/21/2016 12/17/2017 Rectal bleeding 09/22/2013 05/23/2015 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2 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 0 Colon cancer 10/31/2010 11/09/2012 Abdominal pain, left lower quadrant 10/31/2010 03/26/2011 Benign neoplasm of rectum and anal canal 10/31/2010 05/23/2015 Malignant neoplasm of colon 10/31/2010 06/19/2020 documented as of this encounter (statuses as of 09/10/2023) [facility] History of Past illness Narrative* Problem Noted Date Diagnosed Date Resolved Date Appendicitis 07/21/2016 12/17/2017 Rectal bleeding 09/22/2013 05/23/2015 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2 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 0 Colon cancer 10/31/2010 11/09/2012 Abdominal pain, left lower quadrant 10/31/2010 03/26/2011 Benign neoplasm of rectum and anal canal 10/31/2010 05/23/2015 Malignant neoplasm of colon 10/31/2010 06/19/2020 documented as of this encounter (statuses as of 09/25/2023) [facility]* Diagnosis Essential hypertension Unspecified essential hypertension Mixed hyperlipidemia [facility] Diagnosis Centrilobular emphysema (HCC) Other emphysema Chronic hypoxemic respiratory failure (HCC) Chronic respiratory failure History of COVID-19 [facility] Diagnosis Centrilobular emphysema (HCC)- Primary Other emphysema Chronic hypoxemic respiratory failure (HCC) Chronic respiratory failure History of COVID-19 [facility] Diagnosis Hypoxia- Primary Hypoxemia [facility] Diagnosis Visit for wound check- Primary Encounter for other specified aftercare [facility] Diagnosis HB (heart block)- Primary Conduction disorder, unspecified [facility] Diagnosis COPD with chronic bronchitis (HCC)- Primary Obstructive chronic bronchitis without exacerbation Chronic hypoxemic respiratory failure (HCC) Chronic respiratory failure СВЕТЛАНА (obstructive sleep apnea) Obstructive sleep apnea (adult) (pediatric) History of COVID-19 [facility] Diagnosis Asthma with chronic obstructive pulmonary disease (COPD) (HCC)- Primary Chronic obstructive asthma, unspecified S/P placement of cardiac pacemaker- Primary Cardiac pacemaker in situ Essential hypertension Unspecified essential hypertension [facility] Diagnosis S/P placement of cardiac pacemaker- Primary Cardiac pacemaker in situ Essential hypertension Unspecified essential hypertension [facility]* Diagnosis Chronic hypoxemic respiratory failure (HCC) Chronic respiratory failure [facility]* Diagnosis Chronic hypoxemic respiratory failure (HCC) Chronic respiratory failure [facility]* Diagnosis Chronic hypoxemic respiratory failure (HCC) Chronic respiratory failure [facility] Diagnosis Chronic obstructive pulmonary disease, unspecified COPD type (HCC)- Primary Essential hypertension Unspecified essential hypertension Mixed hyperlipidemia S/P placement of cardiac pacemaker Cardiac pacemaker in situ Cataract of both eyes, unspecified cataract type [facility] Diagnosis HB (heart block)- Primary Conduction disorder, unspecified [facility] Diagnosis Mixed hyperlipidemia Essential hypertension Unspecified essential hypertension [facility] Diagnosis CHB (complete heart block) (HCC)- Primary Atrioventricular block, complete [facility] Diagnosis Essential hypertension Unspecified essential hypertension [facility] Diagnosis Essential hypertension Unspecified essential hypertension [facility] Diagnosis 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)- Primary Chronic hypoxemic respiratory failure (HCC) Chronic respiratory failure Former cigarette smoker Personal history of tobacco use, presenting hazards to health [facility] Diagnosis Complete heart block (HCC)- Primary Atrioventricular block, complete [facility] Diagnosis 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)- Primary Dyspnea and respiratory abnormalities Other dyspnea and respiratory abnormality Chronic hypoxemic respiratory failure (HCC) Chronic respiratory failure СВЕТЛАНА (obstructive sleep apnea) Obstructive sleep apnea (adult) (pediatric) Former cigarette smoker Personal history of tobacco use, presenting hazards to health [facility] Diagnosis CHB (complete heart block) (HCC)- Primary Atrioventricular block, complete [facility] Diagnosis 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)- Primary Chronic hypoxemic respiratory failure (HCC) Chronic respiratory failure Former cigarette smoker Personal history of tobacco use, presenting hazards to health [facility] Diagnosis Chronic hypoxemic respiratory failure (HCC) Chronic respiratory failure [facility] Diagnosis Essential hypertension- Primary Unspecified essential hypertension Mixed hyperlipidemia Chronic pain of both knees 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) Chronic hypoxemic respiratory failure (HCC) Chronic respiratory failure S/P placement of cardiac pacemaker Cardiac pacemaker in situ Atherosclerosis of [place] coronary artery of [place] heart without angina pectoris Elevated glucose Other abnormal glucose Depression, unspecified depression type Need for influenza vaccination Need for prophylactic vaccination and inoculation against influenza Need for vaccination Need for prophylactic vaccination and inoculation against unspecified single disease Skin lesion Unspecified disorder of skin and subcutaneous tissue Actinic keratosis documented in this encounter [facility] for referral (narrative)* Outpatient Procedure (Routine) - Authorized Specialty Diagnoses / Procedures Referred By Floyd estes Referred To [facility] Diagnoses COPD with chronic bronchitis (HCC) Chronic hypoxemic respiratory failure (HCC) Procedures OXIMETRY WITH AMBULATION NONINVASIVE EAR/PULSE OXIMETRY MULTIPLE DETER Amalia Pritchard PA-C [address] [address] Referral ID Status Reason Start Date Expiration Date Visits Requested Visits Authorized [id number] Authorized Auto-Generat ed Referral 06/20/2022 07/20/2023 1 1 * Outpatient Procedure (Routine) - Authorized Specialty Diagnoses / Procedures Referred By Contac t Referred To [facility] Diagnoses COPD with chronic bronchitis (HCC) Chronic hypoxemic respiratory failure (HCC) Procedures LUNG DIFFUSION CAPACITY (DLCO) DIFFUSING CAPACITY Amalia Pritchard PA-C [address] [address] Referral ID Status Reason Start Date Expiration Date Visits Requested Visits Authorized [id number] Authorized Auto-Generat ed Referral 06/20/2022 07/20/2023 1 1 * Outpatient Procedure (Routine) - Authorized Specialty Diagnoses / Procedures Referred By Contac t Referred To [facility] Diagnoses COPD with chronic bronchitis (HCC) Chronic hypoxemic respiratory failure (HCC) Procedures SPIROMETRY BASELINE ONLY SPMTRY W/VC EXPIRATORY ADIS W/WO MXML VOL VNTJ Amalia Pritchard PA-C [address] [address] Referral ID Status Reason Start Date Expiration Date Visits Requested Visits Authorized [id number] Authorized Auto-Generat ed Referral 06/20/2022 07/20/2023 1 1 [facility] for referral (narrative)* Outpatient Procedure (Routine) - Authorized Specialty Diagnoses / Procedures Referred By Contac t Referred To [facility] Diagnoses Chronic hypoxemic respiratory failure (HCC) COPD with chronic bronchitis (HCC) Procedures OXIMETRY WITH AMBULATION NONINVASIVE EAR/PULSE OXIMETRY MULTIPLE DETER Amalia Pritchard PA-C [address] [place] [address] Respiratory [place] [address] [place] [id number] Referral ID Status Reason Start Date Expiration Date Visits Requested Visits Authorized [id number] Authorized Auto-Generat ed Referral 05/28/2023 06/26/2024 1 1 * Outpatient Procedure (Routine) - Authorized Specialty Diagnoses / Procedures Referred By Contac t Referred To [facility] Diagnoses Dyspnea and respiratory abnormalities Procedures ECHO ECHO TTHRC R-T 2D W/WOM-MODE COMPL SPEC&COLR D Amalia Pritchard PA-C [address] [place] [address] [facility] [place] [id number] Referral ID Status Reason Start Date Expiration Date Visits Requested Visits Authorized [id number] Authorized Auto-Generat ed Referral 05/28/2023 05/27/2024 1 1 [facility] Summary Purpose Family History No Family History Records FoundNo Family History Records FoundNo Family History Records Found Advance Directives No Advanced Directives Records FoundDocuments on File 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 Advance Directive(s) 11/20/2021 8:13 AM Advance Directive(s) 12/01/2019 3:43 PM Advance Directive(s) 11/16/2019 1:52 PM Advance Directive(s) 08/14/2018 8:31 AM Advance Directive(s) 01/30/2018 7:25 AM Advance Directive(s) 12/29/2015 9:35 AM Advance Directive(s) 12/25/2015 2:32 PM Advance Directive(s) 12/02/2015 7:07 AM Latest Code Status on File Code Status Date Activated Date Inactivated Comments Full Code 06/12/2022 1:49 AM Full Code Order Discussed With: Patient Surrogate Decision Maker Latest Code Status on File Code Status Date Activated Date Inactivated Comments Full Code 06/12/2022 1:49 AM 06/12/2022 9:19 PM Latest Code Status on File Code Status Date Activated Date Inactivated Comments Full Code 06/12/2022 1:49 AM 06/12/2022 9:19 PM Latest Code Status on File Code Status Date Activated Date Inactivated Comments Full Code 06/12/2022 1:49 AM 06/12/2022 9:19 PM Question Answer Comments Full Code Order Discussed With: Patient Surrogate Decision Maker Latest Code Status on File Code Status Date Activated Date Inactivated Comments Full Code 06/12/2022 1:49 AM 06/12/2022 9:19 PM Question Answer Comments Full Code Order Discussed With: Patient Surrogate Decision Maker Latest Code Status on File Code Status Date Activated Date Inactivated Comments Full Code 06/12/2022 1:49 AM 06/12/2022 9:19 PM Question Answer Comments Full Code Order Discussed With: Patient Surrogate Decision Maker Latest Code Status on File Code Status Date Activated Date Inactivated Comments Full Code 06/12/2022 1:49 AM 06/12/2022 9:19 PM Question Answer Comments Full Code Order Discussed With: Patient Surrogate Decision Maker Health Concerns Infection Onset Date Last Indicated Resolved Time COVID-19 Rule-Out 06/11/2022 06/11/2022 06/11/2022 10:44 PM EDT Reason for Referral Specialty Diagnoses / Procedures Referred By Floyd estes Referred To Contact Dermatology Diagnoses Skin lesion Actinic keratosis Procedures CONSULT TO DERMATOLOGY Radha Lebron MD [address] [place] [address] Referral ID Status Reason Start Date Expiration Date Visits Requested Visits Authorized [id number] Ref Not Required PCP Requested Referral 3 09/08/2024 1 1 Additional Source Comments (unrecognized sect ion and content) No Status Records FoundNo Status Records FoundNo Status Records Found INFORMATION SOURCE (unrecogn ized section and content) DATE CREATED AUTHOR AUTHOR'S ORGANIZ ATION 09/11/2023 [facility] DATE CREATED AUTHOR AUTHOR'S ORGANIZ ATION 10/20/2023 [facility] Source Comments (unrecognize d section and content) In the event this informatio n is protected by the Federal Confidentiality of Alcohol and Drug Abuse Patient Records regulations: The Federal rules restrict any use of the information to criminally investigate or prosecute any alcohol or drug abuse patient.[facility] the event this information is protected by the Federal Confidentiality of Alcohol and Drug Abuse Patient Records regulations: The Federal rules restrict any use of the information to criminally investigate or prosecute any alcohol or drug abuse patient.[facility] the event this information is protected by the Federal Confidentiality of Alcohol and Drug Abuse Patient Records regulations: The Federal rules restrict any use of the information to criminally investigate or prosecute any alcohol or drug abuse patient.[facility] the event this information is protected by the Federal Confidentiality of Alcohol and Drug Abuse Patient Records regulations: The Federal rules restrict any use of the information to criminally investigate or prosecute any alcohol or drug abuse patient.[facility] the event this information is protected by the Federal Confidentiality of Alcohol and Drug Abuse Patient Records regulations: The Federal rules restrict any use of the information to criminally investigate or prosecute any alcohol or drug abuse patient.[facility] the event this information is protected by the Federal Confidentiality of Alcohol and Drug Abuse Patient Records regulations: The Federal rules restrict any use of the information to criminally investigate or prosecute any alcohol or drug abuse patient.[facility] the event this information is protected by the Federal Confidentiality of Alcohol and Drug Abuse Patient Records regulations: The Federal rules restrict any use of the information to criminally investigate or prosecute any alcohol or drug abuse patient.[facility] the event this information is protected by the Federal Confidentiality of Alcohol and Drug Abuse Patient Records regulations: The Federal rules restrict any use of the information to criminally investigate or prosecute any alcohol or drug abuse patient.[facility] the event this information is protected by the Federal Confidentiality of Alcohol and Drug Abuse Patient Records regulations: The Federal rules restrict any use of the information to criminally investigate or prosecute any alcohol or drug abuse patient.[facility] the event this information is protected by the Federal Confidentiality of Alcohol and Drug Abuse Patient Records regulations: The Federal rules restrict any use of the information to criminally investigate or prosecute any alcohol or drug abuse patient.[facility] the event this information is protected by the Federal Confidentiality of Alcohol and Drug Abuse Patient Records regulations: The Federal rules restrict any use of the information to criminally investigate or prosecute any alcohol or drug abuse patient.[facility] the event this information is protected by the Federal Confidentiality of Alcohol and Drug Abuse Patient Records regulations: The Federal rules restrict any use of the information to criminally investigate or prosecute any alcohol or drug abuse patient.[facility] the event this information is protected by the Federal Confidentiality of Alcohol and Drug Abuse Patient Records regulations: The Federal rules restrict any use of the information to criminally investigate or prosecute any alcohol or drug abuse patient.[facility] the event this information is protected by the Federal Confidentiality of Alcohol and Drug Abuse Patient Records regulations: The Federal rules restrict any use of the information to criminally investigate or prosecute any alcohol or drug abuse patient.[facility] the event this information is protected by the Federal Confidentiality of Alcohol and Drug Abuse Patient Records regulations: The Federal rules restrict any use of the information to criminally investigate or prosecute any alcohol or drug abuse patient.[facility] the event this information is protected by the Federal Confidentiality of Alcohol and Drug Abuse Patient Records regulations: The Federal rules restrict any use of the information to criminally investigate or prosecute any alcohol or drug abuse patient.[facility] the event this information is protected by the Federal Confidentiality of Alcohol and Drug Abuse Patient Records regulations: The Federal rules restrict any use of the information to criminally investigate or prosecute any alcohol or drug abuse patient.[facility] the event this information is protected by the Federal Confidentiality of Alcohol and Drug Abuse Patient Records regulations: The Federal rules restrict any use of the information to criminally investigate or prosecute any alcohol or drug abuse patient.[facility] the event this information is protected by the Federal Confidentiality of Alcohol and Drug Abuse Patient Records regulations: The Federal rules restrict any use of the information to criminally investigate or prosecute any alcohol or drug abuse patient.[facility] the event this information is protected by the Federal Confidentiality of Alcohol and Drug Abuse Patient Records regulations: The Federal rules restrict any use of the information to criminally investigate or prosecute any alcohol or drug abuse patient.[facility] the event this information is protected by the Federal Confidentiality of Alcohol and Drug Abuse Patient Records regulations: The Federal rules restrict any use of the information to criminally investigate or prosecute any alcohol or drug abuse patient.[facility] the event this information is protected by the Federal Confidentiality of Alcohol and Drug Abuse Patient Records regulations: The Federal rules restrict any use of the information to criminally investigate or prosecute any alcohol or drug abuse patient.[facility] the event this information is protected by the Federal Confidentiality of Alcohol and Drug Abuse Patient Records regulations: The Federal rules restrict any use of the information to criminally investigate or prosecute any alcohol or drug abuse patient.[facility] the event this information is protected by the Federal Confidentiality of Alcohol and Drug Abuse Patient Records regulations: The Federal rules restrict any use of the information to criminally investigate or prosecute any alcohol or drug abuse patient.[facility] the event this information is protected by the Federal Confidentiality of Alcohol and Drug Abuse Patient Records regulations: The Federal rules restrict any use of the information to criminally investigate or prosecute any alcohol or drug abuse patient.[facility] the event this information is protected by the Federal Confidentiality of Alcohol and Drug Abuse Patient Records regulations: The Federal rules restrict any use of the information to criminally investigate or prosecute any alcohol or drug abuse patient.[facility] the event this information is protected by the Federal Confidentiality of Alcohol and Drug Abuse Patient Records regulations: The Federal rules restrict any use of the information to criminally investigate or prosecute any alcohol or drug abuse patient.[facility] the event this information is protected by the Federal Confidentiality of Alcohol and Drug Abuse Patient Records regulations: The Federal rules restrict any use of the information to criminally investigate or prosecute any alcohol or drug abuse patient.[facility] the event this information is protected by the Federal Confidentiality of Alcohol and Drug Abuse Patient Records regulations: The Federal rules restrict any use of the information to criminally investigate or prosecute any alcohol or drug abuse patient.[facility] the event this information is protected by the Federal Confidentiality of Alcohol and Drug Abuse Patient Records regulations: The Federal rules restrict any use of the information to criminally investigate or prosecute any alcohol or drug abuse patient.[facility] HospitalIn the event this information is protected by the Federal Confidentiality of Alcohol and Drug Abuse Patient Records regulations: The Federal rules restrict any use of the information to criminally investigate or prosecute any alcohol or drug abuse patient.[facility] HospitalIn the event this information is protected by the Federal Confidentiality of Alcohol and Drug Abuse Patient Records regulations: The Federal rules restrict any use of the information to criminally investigate or prosecute any alcohol or drug abuse patient.[facility] HospitalIn the event this information is protected by the Federal Confidentiality of Alcohol and Drug Abuse Patient Records regulations: The Federal rules restrict any use of the information to criminally investigate or prosecute any alcohol or drug abuse patient.[facility] HospitalIn the event this information is protected by the Federal Confidentiality of Alcohol and Drug Abuse Patient Records regulations: The Federal rules restrict any use of the information to criminally investigate or prosecute any alcohol or drug abuse patient.[facility] HospitalIn the event this information is protected by the Federal Confidentiality of Alcohol and Drug Abuse Patient Records regulations: The Federal rules restrict any use of the information to criminally investigate or prosecute any alcohol or drug abuse patient.[facility] HospitalIn the event this information is protected by the Federal Confidentiality of Alcohol and Drug Abuse Patient Records regulations: The Federal rules restrict any use of the information to criminally investigate or prosecute any alcohol or drug abuse patient.[facility] HospitalIn the event this information is protected by the Federal Confidentiality of Alcohol and Drug Abuse Patient Records regulations: The Federal rules restrict any use of the information to criminally investigate or prosecute any alcohol or drug abuse patient.[facility] HospitalIn the event this information is protected by the Federal Confidentiality of Alcohol and Drug Abuse Patient Records regulations: The Federal rules restrict any use of the information to criminally investigate or prosecute any alcohol or drug abuse patient.[facility] HospitalIn the event this information is protected by the Federal Confidentiality of Alcohol and Drug Abuse Patient Records regulations: The Federal rules restrict any use of the information to criminally investigate or prosecute any alcohol or drug abuse patient.[facility] HospitalIn the event this information is protected by the Federal Confidentiality of Alcohol and Drug Abuse Patient Records regulations: The Federal rules restrict any use of the information to criminally investigate or prosecute any alcohol or drug abuse patient.[facility] HospitalIn the event this information is protected by the Federal Confidentiality of Alcohol and Drug Abuse Patient Records regulations: The Federal rules restrict any use of the information to criminally investigate or prosecute any alcohol or drug abuse patient.[facility] HospitalIn the event this information is protected by the Federal Confidentiality of Alcohol and Drug Abuse Patient Records regulations: The Federal rules restrict any use of the information to criminally investigate or prosecute any alcohol or drug abuse patient.[facility] HospitalIn the event this information is protected by the Federal Confidentiality of Alcohol and Drug Abuse Patient Records regulations: The Federal rules restrict any use of the information to criminally investigate or prosecute any alcohol or drug abuse patient.[facility] HospitalIn the event this information is protected by the Federal Confidentiality of Alcohol and Drug Abuse Patient Records regulations: The Federal rules restrict any use of the information to criminally investigate or prosecute any alcohol or drug abuse patient.[facility] HospitalIn the event this information is protected by the Federal Confidentiality of Alcohol and Drug Abuse Patient Records regulations: The Federal rules restrict any use of the information to criminally investigate or prosecute any alcohol or drug abuse patient.[facility] HospitalIn the event this information is protected by the Federal Confidentiality of Alcohol and Drug Abuse Patient Records regulations: The Federal rules restrict any use of the information to criminally investigate or prosecute any alcohol or drug abuse patient.[facility] HospitalIn the event this information is protected by the Federal Confidentiality of Alcohol and Drug Abuse Patient Records regulations: The Federal rules restrict any use of the information to criminally investigate or prosecute any alcohol or drug abuse patient.[facility] HospitalIn the event this information is protected by the Federal Confidentiality of Alcohol and Drug Abuse Patient Records regulations: The Federal rules restrict any use of the information to criminally investigate or prosecute any alcohol or drug abuse patient.[facility] HospitalIn the event this information is protected by the Federal Confidentiality of Alcohol and Drug Abuse Patient Records regulations: The Federal rules restrict any use of the information to criminally investigate or prosecute any alcohol or drug abuse patient.[facility] HospitalIn the event this information is protected by the Federal Confidentiality of Alcohol and Drug Abuse Patient Records regulations: The Federal rules restrict any use of the information to criminally investigate or prosecute any alcohol or drug abuse patient.[facility] HospitalIn the event this information is protected by the Federal Confidentiality of Alcohol and Drug Abuse Patient Records regulations: The Federal rules restrict any use of the information to criminally investigate or prosecute any alcohol or drug abuse patient.[facility] HospitalIn the event this information is protected by the Federal Confidentiality of Alcohol and Drug Abuse Patient Records regulations: The Federal rules restrict any use of the information to criminally investigate or prosecute any alcohol or drug abuse patient.[facility] HospitalIn the event this information is protected by the Federal Confidentiality of Alcohol and Drug Abuse Patient Records regulations: The Federal rules restrict any use of the information to criminally investigate or prosecute any alcohol or drug abuse patient.[facility] HospitalIn the event this information is protected by the Federal Confidentiality of Alcohol and Drug Abuse Patient Records regulations: The Federal rules restrict any use of the information to criminally investigate or prosecute any alcohol or drug abuse patient.[facility] HospitalIn the event this information is protected by the Federal Confidentiality of Alcohol and Drug Abuse Patient Records regulations: The Federal rules restrict any use of the information to criminally investigate or prosecute any alcohol or drug abuse patient.[facility] HospitalIn the event this information is protected by the Federal Confidentiality of Alcohol and Drug Abuse Patient Records regulations: The Federal rules restrict any use of the information to criminally investigate or prosecute any alcohol or drug abuse patient.[facility] HospitalIn the event this information is protected by the Federal Confidentiality of Alcohol and Drug Abuse Patient Records regulations: The Federal rules restrict any use of the information to criminally investigate or prosecute any alcohol or drug abuse patient.[facility] HospitalIn the event this information is protected by the Federal Confidentiality of Alcohol and Drug Abuse Patient Records regulations: The Federal rules restrict any use of the information to criminally investigate or prosecute any alcohol or drug abuse patient.[facility] Reason for Visit (unrecogniz ed section and content) Reason Comments Spirometry Specialty Diagnoses / Procedures Referred By Floyd t Referred To [facility] Diagnoses Centrilobular emphysema (HCC) Chronic hypoxemic respiratory failure (HCC) History of COVID-19 Procedures OXIMETRY WITH AMBULATION [id number] Amalia Pritchard PA-C [address] [facility] [address] [place] [address] [facility] [place] [address] [place] [id number] Referral ID Status Reason Start Date Expiration Date V isits Requested Visits Authorized [id number] Closed Auto-Generate d Referral 11/02/2021 12/02/2022 1 1 Reason Comments COPD Established Patient Reason Comments Results Reason Onset Date Comments Community Monitoring Outreach 02/14/2022 In sight CDM enrollment 4th attempt Reason Comments Refill Request Reason Comments Wound Check Reason Comments Patient Question Reason Onset Date Comments Transition Of Care 06/10/2022 TCM initial o utreach-dc'd from [facility] 06/07/22 Reason Comments Escalation of Care Reason Onset Date Comments Transition Of Care 06/11/2022 TCM follow-up Reason Onset Date Comments Transition Of Care 06/13/2022 TCM Hospital Discharge 06/12/22 Reason Comments Wound Check S/p device Reason Comments Remote Pacemaker Follow Up Reason Comments Hospital Follow Up Appointment Reason Comments 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 Reason Comments Follow Up Reason Comments Orders Reason Onset Date Comments Transition Of Care 06/26/2022 TCM follow-up Reason Onset Date Comments Transition Of Care 07/09/2022 TCM follow-up Reason Comments Hospital Follow Up PACEMAKER Reason Onset Date Comments Community Monitoring Outreach 07/11/2022 In take #1 Reason Onset Date Comments Community Monitoring Outreach 07/15/2022 In take #2 Reason Onset Date Comments Community Monitoring Outreach 07/23/2022 In take #3 Specialty Diagnoses / Procedures Referred By Floyd t Referred To [facility] Diagnoses COPD with chronic bronchitis (HCC) Chronic hypoxemic respiratory failure (HCC) Procedures SPIROMETRY BASELINE ONLY SPMTRY W/VC EXPIRATORY ADIS W/WO MXML VOL VNTJ Amalia Pritchard PA-C [address] [facility] [place] [address] [address] Referral ID Status Reason Start Date Expiration Date V isits Requested Visits Authorized [id number] Closed Auto-Generate d Referral 06/20/2022 07/20/2023 1 1 Specialty Diagnoses / Procedures Referred By Contac t Referred To [facility] Diagnoses COPD with chronic bronchitis (HCC) Chronic hypoxemic respiratory failure (HCC) Procedures OXIMETRY WITH AMBULATION NONINVASIVE EAR/PULSE OXIMETRY MULTIPLE Amalia Humphreys PA-C [address] [facility] [place] [address] [address] Referral ID Status Reason Start Date Expiration Date V isits Requested Visits Authorized [id number] Closed Auto-Generate d Referral 06/20/2022 07/20/2023 1 1 Specialty Diagnoses / Procedures Referred By Contac t Referred To Contact [facility] Diagnoses COPD with chronic bronchitis (HCC) Chronic hypoxemic respiratory failure (HCC) Procedures LUNG DIFFUSION CAPACITY (DLCO) DIFFUSING CAPACITY Amalia Pritchard PA-C [address] [facility] [place] [address] [address] Referral ID Status Reason Start Date Expiration Date V isits Requested Visits Authorized [id number] Closed Auto-Generate d Referral 06/20/2022 07/20/2023 1 1 Reason Comments Cardiac Clearance Reason Comments Medication Follow-up Reason Comments Patient Assistance Reason Onset Date Comments Refill Request 11/28/2022 Reason Comments Permanent Pacemaker Reason Onset Date Comments Refill Request 02/08/2023 Reason Onset Date Comments Refill Request 02/17/2023 Reason Comments COPD Reason Comments COPD Reason Onset Date Comments Refill Request 05/28/2023 Reason Comments Established Patient 3 month follow up [place] Specialty Diagnoses / Procedures Referred By Contac t Referred To Contact [facility] Diagnoses Chronic hypoxemic respiratory failure (HCC) COPD with chronic bronchitis Procedures OXIMETRY WITH AMBULATION NONINVASIVE EAR/PULSE OXIMETRY MULTIPLE Amalia Humphreys PA-C [address] [place] [address] [facility] [place] [address] [place] [address] Referral ID Status Reason Start Date Expiration Date V isits Requested Visits Authorized [id number] Closed Auto-Generate d Referral 05/28/2023 06/26/2024 1 1 Reason Onset Date Comments F/U 6 Month Immunizations 09/09/2023 Flu vaccination Care Teams (unrecognized sec tion and content) Surgical Scrub Tech Relationship Specialty [place] [address] [place] [id number] PCP - General 05/06/09 Surgical Scrub Tech Relationship Specialty Start Date End Date Radha Lebron MD [address] [place] [id number] PCP - General 05/06/09 Surgical Scrub Tech Relationship Specialty Start Date End Date Radha Lebron MD [address] [place] [id number] PCP - General 05/06/09 Surgical Scrub Tech Relationship Specialty Start Date End Date Radha Lebron MD [address] [place] [address] PCP - General 05/06/09 Surgical Scrub Tech Relationship Specialty Start Date End Date Radha Lebron MD [address] [place] [id number] PCP - General 05/06/09 Surgical Scrub Tech Relationship Specialty Start Date End Date Radha Lebron MD [address] [place] [address] PCP - General 05/06/09 Surgical Scrub Tech Relationship Specialty Start Date End Date Radha Lebron MD [address] [place] [address] PCP - General 05/06/09 Surgical Scrub Tech Relationship Specialty Start Date End Date Radha Lebron MD [address] [facility] [place] [address] PCP - General 05/06/09 Surgical Scrub Tech Relationship Specialty Start Date End Date Radha Lebron MD [address] [facility] [place] [address] PCP - General 05/06/09 Joyce Sheppard RN Primary Care Resource Management Planner 06/12/22 07/12/22 Surgical Scrub Tech Relationship Specialty Start Date End Date Radha Lebron MD [address] [place] [address] PCP - General 05/06/09 Joyce Sheppard RN Primary Care Resource Management Planner 06/12/22 07/12/22 Surgical Scrub Tech Relationship Specialty Start Date End Date Radha Lebron MD [address] [place] [address] PCP - General 05/06/09 Joyce Sheppard RN Primary Care Resource Management Planner 06/12/22 07/12/22 Surgical Scrub Tech Relationship Specialty Start Date End Date Radha Lebron MD [address] [facility] [place] [address] PCP - General 05/06/09 Joyce Sheppard RN Primary Care Resource Management Planner 06/12/22 07/12/22 Surgical Scrub Tech Relationship Specialty Start Date End Date Radha Lebron MD [address] [facility] [place] [address] PCP - General 05/06/09 Joyce Sheppard RN Primary Care Resource Management Planner 06/12/22 07/12/22 Surgical Scrub Tech Relationship Specialty Start Date End Date Radha Lebron MD [address] [facility] [place] [address] PCP - General 05/06/09 Joyce Sheppard RN Primary Care Resource Management Planner 06/12/22 07/12/22 Surgical Scrub Tech Relationship Specialty Start Date End Date Radha Lebron MD [address] [facility] [place] [address] PCP - General 05/06/09 Joyce Sheppard RN Primary Care Resource Management Planner 06/12/22 07/12/22 Surgical Scrub Tech Relationship Specialty Start Date End Date Radha Lebron MD [address] [facility] [place] [address] PCP - General 05/06/09 Joyce Sheppard RN Primary Care Resource Management Planner 06/12/22 07/12/22 Surgical Scrub Tech Relationship Specialty Start Date End Date Radha Lebron MD [address] [facility] [place] [address] PCP - General 05/06/09 Joyce Sheppard RN Primary Care Resource Management Planner 06/12/22 07/09/22 Surgical Scrub Tech Relationship Specialty Start Date End Date Radha Lebron MD [address] [place] [address] PCP - General 05/06/09 Surgical Scrub Tech Relationship Specialty Start Date End Date Radha Lebron MD [address] [place] [address] PCP - General 05/06/09 Surgical Scrub Tech Relationship Specialty Start Date End Date Radha Lebron MD [address] [place] [address] PCP - General 05/06/09 Surgical Scrub Tech Relationship Specialty Start Date End Date Radha Lebron MD [address] [place] [address] PCP - General 05/06/09 Surgical Scrub Tech Relationship Specialty Start Date End Date Radha Lebron MD [address] [place] [address] PCP - General 05/06/09 Surgical Scrub Tech Relationship Specialty Start Date End Date Radha Lebron MD [address] [place] [address] PCP - General 05/06/09 Surgical Scrub Tech Relationship Specialty Start Date End Date Radha Lebron MD [address] [place] [address] PCP - General 05/06/09 Surgical Scrub Tech Relationship Specialty Start Date End Date Radha Lebron MD [address] [place] [address] PCP - General 05/06/09 Surgical Scrub Tech Relationship Specialty Start Date End Date Radha Lebron MD [address] [place] [address] PCP - General 05/06/09 Surgical Scrub Tech Relationship Specialty Start Date End Date Radha Lebron MD [address] [place] [address] PCP - General 05/06/09 Surgical Scrub Tech Relationship Specialty Start Date End Date Radha Lebron MD [address] [place] [address] PCP - General 05/06/09 Surgical Scrub Tech Relationship Specialty Start Date End Date Radha Lebron MD [address] [place] [address] PCP - General 05/06/09 Surgical Scrub Tech Relationship Specialty Start Date End Date Radha Lebron MD [address] [place] [address] PCP - General 05/06/09 Surgical Scrub Tech Relationship Specialty Start Date End Date Radha Lebron MD [address] [place], [place] [address] PCP - General 05/06/09 Surgical Scrub Tech Relationship Specialty Start Date End Date Radha Lebron MD [address] [place], [place] [address] PCP - General 05/06/09 FOR RECORDS PERTAINING TO PATIENTS WHO ARE OR HAVE BEEN ENROLLED IN A CHEMICAL DEPENDENCY/SUBSTANCEABUSE PROGRAM, SOME INFORMATION MAY BE OMITTED. This clinical summary was aggregated from multiple sources. Caution should be exercised in using it in the provision of clinical care. This summary normalizes information from multiple sources, and as a consequence, information in this document may materially change the coding, format and clinical context of patient data. In addition, data may be omitted in some cases. CLINICAL DECISIONS SHOULD BE BASED ON THE PRIMARY CLINICAL RECORDS. [facility]. provides no warranty or guarantee of the accuracy or completeness of information in this document.
--- NOTE | 2023-10-23 11:20 | STRESSREP ---
Stress Test Report Date: 10/23/2023 Procedure: Pharmacologic stress nuclear imaging study Indications: Dyspnea Consent: Per the patient Procedure: The patient underwent pharmacologic (Regadenoson 0.4mg ) evaluation with a peak heart rate of 102 beats per minute (68%predicted maximal heart rate) and a peak blood pressure of 118/78 mmHg. The baseline ECG demonstrated sinus rhythm with nonspecific intraventricular conduction delay. The peak pharmacologic ECG demonstrated no diagnostic changes. There were no cardiac dysrhythmias pretest, during pharmacologic infusion, or recovery. There was no complaint of chest discomfort during pharmacologic infusion or recovery. The patient was injected with 15.0 millicuries of technetium 99m Cardiolite and subsequently rest SPECT Cardiolite nuclear imaging was obtained in the horizontal long, vertical long, and short axis views. The patient underwent pharmacologic (Regadenoson) evaluation. The patient was injected with 44.3 millicuries of technetium 99m Cardiolite and subsequently stress SPECT Cardiolite nuclear imaging was obtained in the horizontal long, vertical long, and short axis views. A gated Cardiolite study at peak stress was obtained. The examination was stopped secondary to completion of protocol. Rest and stress SPECT Cardiolite nuclear imaging status post realignment, normalization, and attenuation correction demonstrate no fixed or reversible perfusion defects. There is end systolic thickening and brightening. The gated Cardiolite study demonstrates myocardial thickening and inward wall motion. The reported LVEF is 44%. Impression: 1. Pharmacologic (Regadenoson) evaluation 2. Peak pharmacologic ECG with no diagnostic changes. 3. There were no cardiac dysrhythmias pretest, during pharmacologic infusion, or recovery. 5. Rest and stress SPECT Cardiolite nuclear imaging demonstrate relative uniform tracer uptake and myocardial perfusion appearing within normal limits. 6. The gated Cardiolite study reports an LVEF of 44%. This note was generated with [employer] software. It may contain incorrect words, spelling, and punctuation that were not noted in checking the note before signing.
== END | disposition home or self-care (01) ==
LOC: CVS 07:30
PROVIDERS: PCP Family Medicine; Referring Provider Internal Medicine Cardiovascular Disease; Visit Provider Internal Medicine Cardiovascular Disease
DX: R06.09 Other forms of dyspnea (principal); J44.9 Chronic obstructive pulmonary disease, unspecified; I49.5 Sick sinus syndrome; I25.10 Atherosclerotic heart disease of native coronary artery without angina pectoris; E66.9 Obesity, unspecified
CPT/HCPCS: 78452; 93017; 93306; A9500; Q9957; A4216; C8929; J2785

== ENCOUNTER 2024-08-18 18:04 | Emergency (ER) | payer MEDICARE, SELFPAY ==
[2018-07-15 13:42] VITALS: BMI 37.2
[2024-08-18] VITALS (8 sets, daily range): BP systolic 175; BP diastolic 76; PULSE 63–76; RESP 16–24; TEMP 36.9; O2SAT 93–97; BMI 35.2
--- NOTE | 2024-08-18 18:18 | EKG12_ITS ---
Test Reason : SOB Blood Pressure : */* mmHG Vent. Rate : 86 BPM Atrial Rate : 82 BPM P-R Int : * ms QRS Dur : 148 ms QT Int : 432 ms P-R-T Axes : 41 -5 135 degrees QTcB Int : 516 ms Poor data quality, interpretation may be adversely affected Ventricular-paced rhythm Abnormal ECG Confirmed by LOU WISE, KJ ([id number]), editor managing newspaper VICENTA VASQUEZ ([id number]) on 08/20/2024 8:15:48 AM Referred By: Benjamin Sanchez Confirmed By: KJ BLAKE MD
--- NOTE | 2024-08-18 18:27 | RAD_ITS ---
STUDY: X-RAY CHEST REASON FOR EXAM: Male, 68 years old. COUGH, SOB TECHNIQUE: Single AP portable view of the chest. COMPARISON: June 05, 2022 FINDINGS: There is dual chambered pacemaker device on the left. There are interstitial fibrotic changes of the lungs. There is no demonstrated pleural abnormality. Normal size heart. Normal mediastinum and bertha. Normal visualized pulmonary arteries. Normal visualized aortic arch and descending thoracic aorta. Normal visualized thoracic spine. Normal visualized ribs, clavicles, and shoulders. There is no demonstrated abnormality of the visualized soft tissue structures of the upper abdomen. RAD/Chest 1 View (Portable) IMPRESSION: Fibrotic densities. No focal infiltrate. Electronically Signed: Sukhi Desai MD at 19:24 EDT ,
[2024-08-18 18:36] LABS: Absolute Lymphocyte Count 2.16 X10^3/uL (0.83-4.51); Absolute Neutrophil Count 4.4 X10^3/uL (2.0-7.7); Basophil# 0.05 X10^3/uL; Basophil% 0.6 % (0-1); Eosinophil# 0.21 X10^3/uL; Eosinophils% 2.7 % (0-5); Hemoglobin 11.4 g/dL (13.0-16.5); Lymphocyte # 2.16 X10^3/ul (0.83-4.51); Lymphocyte % 27.7 % (19-41); Mean Corp Hgb Conc 32.6 g/dL (32-36); Mean Corpuscular Hgb 32.2 pg (27.0-32.0); Mean Corpuscular Volume 98.9 fL (80-94); Monocyte% 10.3 % (0-10); NRBC Flagged by Analyzer 0 % (0-5); Neutrophil # 4.42 X10^3/uL (2.7-7.7); Neutrophil % 56.8 % (47-70); Platelet Count 159 K/mm3 (150-450); RBC Distribution Width CV 12.3 % (11.6-14.6); RBC Distribution Width SD 44.3 fl (35.1-43.9); Red Blood Count 3.54 M/mm3 (4.6-6.2); White Blood Count 7.8 K/mm3 (4.4-11.0)
[2024-08-18 18:52] LABS: Anion Gap -1 (5-15); BUN 14 mg/dL (7-18); Calcium,Total 8.8 mg/dL (8.5-10.1); Chloride 106 mmol/L (98-107); Creatinine, Serum 0.87 mg/dL (0.70-1.30); EST Glomerular Filtration Rate 92 mL/min (>60); Est Glom Filt Rate - Afr Amer 111 mL/min (>60); Glucose 80 mg/dL (74-106); Sodium Level 143 mmol/L (136-145); Troponin-I HS 15 pg/mL (3.0-78.0)
--- NOTE | 2024-08-18 19:10 | ED.VIS.DYS ---
HPI History of Present Illness Chief Complaint: Shortness of Breath Informant: patient Narrative Narrative: 5-day history increasing cough unable to clear his chest. No fevers or chills. No chest pains. Wheezing at home. No history of diabetes. COPD and asthma he states chronic oxygenation where he supposed to be on 6 L. However he came in on 4 L. Denies nausea or vomiting. Denies urinary symptoms. Denies myalgias. 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 Former smoker Neoplasm of unspecified behavior of bone, soft tissue, and skin Cancer of skin of left ear Ruptured appendix Pneumonia, organism unspecified Malignant neoplasm of colon Impaired glucose tolerance Hernia Diverticulitis of colon (without mention of hemorrhage) Colon cancer Benign neoplasm Acute myocardial infarction Abdominal pain Hyperlipidemia Obesity COPD (chronic obstructive pulmonary disease) Home Medications ?Medication ?Instructions ?Recorded ?Last Taken ?Type clopidogrel 75 mg tablet 75 mg PO DAILY antiplatlet 06/25/16 06/04/22 History lisinopril 5 mg tablet 5 mg PO QHS 06/25/16 06/04/22 History nitroglycerin 0.4 mg sublingual 0.4 mg sublingual Q5M PRN Chest 06/25/16 06/03/22 History tablet Pain lovastatin 40 mg tablet 40 mg PO QHS cholesterol 03/20/17 06/04/22 History aspirin 81 mg tablet 81 mg PO DAILY preventative 06/05/22 Unknown History ipratropium 20 mcg-albuterol 100 1 puff inhalation 4X/DAY PRN sob 10/17/22 Unknown History mcg/actuation mist for inhalation (Combivent Respimat) budesonide 160 mcg-glycopyr 9 2 inh inhalation BID 09/10/23 Unknown History mcg-formot 4.8 mcg/actuation HFA inhaler guaifenesin 1,200 mg tablet, 1,200 mg PO BID 09/17/23 Unknown History extended release 12 hr (Mucinex) metoprolol succinate 100 mg 100 mg PO DAILY #90 tabs 09/17/23 Unknown Rx tablet,extended release 24 hr albuterol sulfate 90 mcg/actuation 1 - 2 puff inhalation Q4H PRN PRN 08/18/24 Unknown Rx aerosol inhaler (Ventolin HFA) Wheezing ##1 azithromycin 250 mg tablet 250 mg PO DAILY #4 TABLETS 08/18/24 Unknown Rx prednisone 20 mg tablet 60 mg (3 x 20 mg) PO DAILY #12 08/18/24 Unknown Rx TABLETS Allergy/AdvReac Type Severity Reaction Status Date / Time No Known Allergies Allergy Verified 08/18/24 18:05 Family History Mother Heart disease Myocardial infarction CHF (congestive heart failure) Father Myocardial infarction Heart disease Brother Heart disease Myocardial infarction Brother Heart disease Myocardial infarction Daughter Heart murmur Surgical History Hx of cardiac catheterization History of permanent cardiac pacemaker placement (06/06/22) History of colonoscopy with polypectomy History of coronary artery stent placement (08/14/18) Encounter for fitting or adjustment of device Encounter for removal of vascular catheter Status post laparoscopic colectomy Abnormal colonoscopy Social History number of children: 6 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, 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 current occupation: [employer] current occupational exposures/hazards: Yes ([employer]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) Smoking Status: Former smoker quit date: 06/24/16 Tobacco: How many years used: 45 Electronic Cigarette Use: with nicotine how long ago did patient quit smokin, 1.5ppd second hand exposure: Yes (SPOUSE SMOKES IN THE HOME) alcohol intake: former substance use type: marijuana caffeine: Yes Type: coffee Number of servings: 2 and tea Number of servings: 2 what type of physical activity do you participate in: none seatbelt use: always ROS ROS ED Constitutional Constitutional ED: Denies chills, fever(s) or sweats Eyes Eyes: Denies change in vision ENT ENT ED: Denies dysphagia or sore throat Cardiovascular Cardiovascular: Denies chest pain, leg edema, palpitations or racing heartbeat Respiratory/Chest Respiratory/Chest: Reports cough and dyspnea; Denies dyspnea on exertion Gastrointestinal Gastrointestinal: Denies abdominal pain, diarrhea, nausea or vomiting Genitourinary Genitourinary ED: Denies dysuria, hematuria or urinary frequency Musculoskeletal Musculoskeletal: Denies back pain, extremity pain or neck pain Integumentary Denies rash or wounds Neurologic Neurologic: Denies headache(s), paresthesias or weakness EXAM Physical Exam Const Vital Signs: 08/18/24 18:05 08/18/24 18:18 08/18/24 19:27 Temperature 98.4 F Temperature Source Oral Pulse Rate 76 63 Respiratory Rate 16 24 H Respiratory Effort Respiratory Pattern Normal Blood Pressure 175/76 H Blood Pressure Mean 109 Pulse Ox 97 96 Oxygen Delivery Method Nasal Cannula Nasal Cannula Oxygen Flow Rate (L/min) 4 3.5 08/18/24 19:47 08/18/24 19:47 08/18/24 19:48 Temperature Temperature Source Pulse Rate Respiratory Rate Respiratory Effort Short of Breath Respiratory Pattern Blood Pressure Blood Pressure Mean Pulse Ox 93 93 Oxygen Delivery Method Nasal Cannula Nasal Cannula Oxygen Flow Rate (L/min) 4 4 08/18/24 20:00 08/18/24 21:00 08/18/24 22:00 Temperature Temperature Source Pulse Rate 72 Respiratory Rate Respiratory Effort Respiratory Pattern Blood Pressure Blood Pressure Mean Pulse Ox 94 94 93 Oxygen Delivery Method Nasal Cannula Nasal Cannula Nasal Cannula Oxygen Flow Rate (L/min) 3.5 3.5 3.5 08/18/24 22:16 Temperature 98.4 F Temperature Source Pulse Rate 72 Respiratory Rate 24 H Respiratory Effort Respiratory Pattern Blood Pressure 175/76 H Blood Pressure Mean 109 Pulse Ox 93 Oxygen Delivery Method Oxygen Flow Rate (L/min) Positive well nourished and well developed Constitutional Narrative: 4 L nasal cannula no distress. General Appearance ED: well developed and NAD HEENT Reports moist mucous membranes normocephalic and atraumatic Eyes EOMs intact bilaterally and conjunctivae normal General Eye ED: Yes normal appearance of both eyes Neck no lymphadenopathy and supple General: Negative for tenderness Chest Wall Chest: Negative for tenderness Resp Resp Narrative: Diminished breath sounds bilaterally. Effort and Inspection: symmetric chest movement; Negative for respiratory distress Cardio regular rate, regular rhythm and no murmurs Peripheral Pulses: pulses 2+ throughout GI normal to inspection, nondistended, normoactive bowel sounds and non-tender Palpation: Negative for guarding or rebound tenderness present Back/Spine no CVA tenderness and no thoracic nor lumbar tenderness Extremity normal to inspection General Extremety ED: Negative for edema or tenderness General Extremity: Negative for edema Neuro oriented x3 and no sensory deficits noted Sensorium / Orientation: awake and alert Skin no rashes or lesions noted and no wounds MDM MDM MDM Narrative Medical decision making narrative: Interventions / MDM: Differential diagnosis: COPD Diagnosis considered but do not suspect: Pneumonia however chest x-ray negative. My EKG interpretation: Paced rhythm rate of 86, no acute findings. Imaging independently reviewed and interpreted by myself: 1 view chest x-ray: No acute process. External documents reviewed: N/A Test considered but not ordered:N/A ED course: Vital stable, on 4 L nasal cannula no distress. Laboratory studies drawn chest x-ray. He is ordered for aerosol treatments and Solu-Medrol. EKG paced rhythm. Reevaluate remained stable. States his coughing now slight productive cough after aerosol treatment. Chest x-ray negative for infiltrates. However COPD productive sputum and started treatment antibiotic steroids according to Gold criteria. Albuterol inhaler was refilled. Outpatient follow-up with his doctors with return precautions. All questions were answered. Re-evaluation: stable Disposition discussed with patient/family/significant other: Patient Case discussed with consulting clinician: N/A This note was generated with [employer] dictation software. It may contain incorrect words, spelling, and punctuation that were not noted in checking the note before signing. Lab Data Attestation: I reviewed the patient's lab results. Labs: Laboratory Results - last 24 hr 08/18/24 18:23 WBC 7.8 RBC 3.54 L Hgb 11.4 L Hct 35.0 L MCV 98.9 H MCH 32.2 H MCHC 32.6 RDW Std Deviation 44.3 H RDW Coeff of Haley 12.3 Plt Count 159 MPV 9.0 Immature Gran % (Auto) 1.900 H Neut % (Auto) 56.8 Lymph % (Auto) 27.7 Nolan % (Auto) 10.3 H Eos % (Auto) 2.7 Baso % (Auto) 0.6 Absolute Neuts (auto) 4.4 Absolute Lymphs (auto) 2.16 Nucleated RBC % 0 Sodium 143 Potassium 4.0 Chloride 106 Carbon Dioxide 38.0 H Anion Gap -1 L BUN 14 Creatinine 0.87 Estim Creat Clear Calc 92.90 Est GFR (MDRD) Af Amer 111 Est GFR (MDRD) Non-Af 92 BUN/Creatinine Ratio 16.0 Glucose 80 Calcium 8.8 Troponin I High Sens 15 Radiography Diagnostic Testing: Clinical Impression(s) from Imaging Studies Chest X-Ray 08/18/24 18:27 IMPRESSION: Fibrotic densities. No focal infiltrate. Electronically Signed: Sukhi Desai MD at 19:24 EDT Reading Location ID and State: [facility] / [place] , Service support , Discharge Plan Triage Chief Complaint: Shortness of Breath ED Provider: Benjamin Sanchez Dx/Rx/DC Orders Clinical Impression: COPD (chronic obstructive pulmonary disease), Cough, Oxygen dependent Instructions: ED COPD Flare Prescriptions: New azithromycin 250 mg tablet 250 mg PO DAILY Qty: 4 0RF prednisone 20 mg tablet 60 mg PO DAILY Qty: 12 0RF albuterol sulfate [Ventolin HFA] 90 mcg/actuation HFA aerosol inhaler 1 - 2 puff inhalation Q4H PRN PRN (Reason: Wheezing) Qty: 1 0RF No Action [id number] 160-9-4.8 mcg/actuation HFA aerosol inhaler 2 inh inhalation BID guaifenesin [Mucinex] 1,200 mg tablet extended release 12hr 1,200 mg PO BID metoprolol succinate 100 mg tablet extended release 24 hr 100 mg PO DAILY Qty: 90 3RF clopidogrel 75 MG tablet 75 mg PO DAILY Patient Comments: anti platelet nitroglycerin 0.4 MG tablet 0.4 mg SUBLINGUAL Q5M PRN (Reason: Chest Pain) Patient Comments: chest pain lisinopril 5 MG tablet 5 mg PO QHS Patient Comments: blood pressure lovastatin 40 MG tablet 40 mg PO QHS Patient Comments: cholesterol aspirin 81 mg Tablet 81 mg PO DAILY Combivent Respimat 20-100 mcg/actuation mist 1 puff INHALATION 4X/DAY PRN (Reason: sob) Patient Comments: INHALE 1 PUFF BY MOUTH 4 TIMES DAILY NEEDED Primary Care Provider: Celio Shaikh Referrals: Celio Shaikh MD [Primary Care Provider] - 3-5 Days Activity Restrictions/Additional Instructions: Chest x-ray negative. Labs are stable. COVID, influenza, RSV negative. EKG is paced rhythm. Take antibiotic steroids as provided. Use inhaler as needed. Follow-up your doctor. If you develop worsening symptoms, return to ED for reevaluation. Print Language: Upper Sorbian Disposition Disposition: Home, Self Care Discharge Date/Time: 08/18/24 22:24
[2024-08-18] MEDS: MethylPREDNISolone 125 MG/2 ML Vial IV (19:12)
[2024-08-18] MEDS: Ipratropium/Albuterol Sulfate 3 ML AMPUL.NEB INHALATION (19:27)
--- OUTSIDE RECORDS SUMMARY | 2024-08-18 19:47 | XMS RPT_ITS | CCD ---
Author Organization [facility] Care Team Providers Care Nitroglycerin Supervisor Name Role Phone ARACELI AVELAR Unavailable Unavailable Radha Shaikh Unavailable Unavailable Radah Shaikh Unavailable Unavailable ARACELI AVELAR Unavailable Unavailable ARACELI AVELAR Unavailable Unavailable Radha Shaikh Unavailable Unavailable Radha Shaikh MD Primary Care Provider Radha Shaikh MD Primary Care Provider Joyce Sheppard RN Unavailable Unavailable Radha Shaikh MD Primary Care Provider Joyce Sheppard RN Unavailable Unavailable Radha Shaikh MD Primary Care Provider Radha Shaikh MD Primary Care Provider RADHA SHAIKH Primary Care Unavailable ALBERTO, ROME Admitting Unavailable ALBERTO, ROME Attending Unavailable PRANAYBROANKIT, RADHA D Primary Care Unavailable ALBERTO, ROME Admitting Unavailable ALBERTO, ROME Attending Unavailable VI RADHA D Primary Care Unavailable TRISHA HENDERSON Attending Unavailable VI RADHA Anthony Primary Care Unavailable ELDERDENIS RADHA Anthony Primary Care Unavailable SUKHI BORJAS Referring Unavailable ALBERTO, ROME Attending Unavailable ELDERBROANKIT, RADHA D Primary Care Unavailable ELDERBROANKIT, RADHA Anthony Primary Care Unavailable ELDERRADHA BARRIOS Primary Care Unavailable ELDERBROANKIT, RADHA Anthony Primary Care Unavailable TRISHA HENDERSON Attending Unavailable CAMILA MOHAN Referring Unavailable ELDERBROCK, RADHA Anthony Primary Care Unavailable LIZ YE Attending Unavailable ELDERBROANKIT, RADHA D Referring Unavailable ELDERBROCK, RADHA D Primary Care Unavailable ELDERRADHA BARRIOS Attending Unavailable ELDERBROCK, RADHA D Primary Care Unavailable CAMILA MOHAN Attending Unavailable ELDERBROANKIT, RADHA Anthony Primary Care Unavailable SUKHI BORJAS Referring Unavailable ELDERBROCK, RADHA Anthony Primary Care Unavailable SUKHI BORJAS Attending Unavailable RADHA SHAIKH Primary Care Unavailable RADHA SHAIKH Primary Care Unavailable AMALIA PRITCHARD Attending Unavailable RADHA SHAIKH Primary Care Unavailable RADHA SHAIKH Attending Unavailable RADHA SHAIKH Primary Care Unavailable AMALIA PRITCHARD Attending Unavailable AMALIA PRITCHARD Referring Unavailable RADHA SHAIKH Primary Care Unavailable DANAFRANCIA PAULINOINDA Referring Unavailable RADHA SHAIKH Primary Care Unavailable Medications Current Medications Medication Drug Class(es) Dates Sig (Normalized) Sig (Original) 120 actuat albuterol 0.1 mg/actuat / ipratropium bromide 0.02 mg/actuat inhalation spray (20 sources) Anticholinergic, beta2-Adrenergic Agonist Start: 12-15-2023 take 20-100 ug by inhalation four times daily as needed ipratropium 20 mcg-albuterol 100 mcg (COMBIVENT RESPIMAT) 20-100 mcg/actuation inhaler Inhale 1 Puff as instructed four times a day as needed. 1 Each 5 12/15/2023 Active Start: 12-20-2020 End: 12-13-2023 take 20-100 ug by inhalation four times daily as needed ipratropium 20 mcg-albuterol 100 mcg (COMBIVENT RESPIMAT) 20-100 mcg/actuation inhaler Inhale 1 Puff as instructed four times a day as needed. 1 Each 5 08/28/2023 12/13/2023 Discontinued Comment on above: Inhale 1 Puff as ins tructed four times daily as needed. Inhale 1 Puff as ins tructed four times a day as needed. aspirin 81 mg delayed release oral tablet (20 sources) Platelet Aggregation Inhibitor, Nonsteroidal Anti-inflammatory Drug Start: 08-14-20 take 1 tablet by mouth once daily aspirin, enteric coated (ASPIRIN, ENTERIC COATED) 81 mg EC tablet Take 1 tablet by mouth once daily. 08/14/2018 Active Comment on above: Take 1 tablet by jose th once daily. 120 actuat budesonide 0.16 mg/actuat / formoterol fumarate 0.0048 mg/actuat / glycopyrrolate 0.009 mg/actuat metered dose inhaler (20 sources) Corticosteroid, beta2-Adrenergic Agonist Start: 12-15-19 take 2 puff(s) by inhalation twice daily budesonide-glycop yr-formoterol (BREZTRI AEROSPHERE) 160-9-4.8 mcg/actuation HFA aerosol inhaler Inhale 2 Puffs as instructed two times a day. 1 Each 5 12/15/2023 Active Start: 08-28-2023 End: 12-13-2023 take 2 puff(s) by inhalation twice daily vqbdsccowj-nccaccfz-scfijcilzq (BREZTRI AEROSPHERE) 160-9-4.8 mcg/actuation HFA aerosol inhaler Inhale 2 Puffs as instructed two times a day. 1 Each 5 11/26/2023 12/13/2023 Discontinued Start: 02-27-2023 End: 08-26-2023 take 2 puff(s) by inhalation twice daily kjitmkhskg-bfxyvoir-lilgypsytu (BREZTRI AEROSPHERE) 160-9-4.8 mcg/actuation HFA aerosol inhaler Inhale 2 Puffs as instructed twice daily. 10.7 g 5 02/27/2023 08/26/2023 Active Start: 06-20-2022 End: 09-06-2022 take 2 puff(s) by inhalation twice daily dkwkwmpbof-oawllwer-vfmhwrqtoy (BREZTRI) 160-9-4.8 mcg/actuation HFA aerosol inhaler Inhale 2 Puffs as instructed twice daily. 1 Each 11 06/20/2022 09/06/2022 Discontinued (Cost of medication) Start: 01-11-2022 take 2 puff(s) by inhalation twice daily ckxffiqelf-jyrnouxy-liuosksssl (BREZTRI AEROSPHERE) 160-9-4.8 mcg/actuation HFA aerosol inhaler Inhale 2 Puffs as instructed twice daily. 3 Inhaler 3 01/11/2022 Active Start: 07-31-2021 End: 01-11-2022 take 2 puff(s) by inhalation twice daily blnblhfmxi-efvlgbkd-cvusojkgun (BREZTRI AEROSPHERE) 160-9-4.8 mcg/actuation HFA aerosol inhaler Inhale 2 Puffs as instructed twice daily. 160 g 3 07/31/2021 01/11/2022 Discontinued Comment on above: Inhale 2 Puffs as in structed twice daily. Inhale 2 Puffs as in structed two times a day. clopidogrel 75 mg oral tablet (20 sources) P2Y12 Platelet Inhibitor Start: End: take 1 tablet by mouth once daily clopidogrel (PLAVIX) 75 mg tablet Indications: Essential hypertension Take 1 tablet by mouth once daily. 90 tablet 3 02/23/2024 Active Start: 12-20-2020 End: 12-13-2023 take 1 tablet by mouth once daily clopidogrel (PLAVIX) 75 mg tablet Indications: Essential hypertension Take 1 tablet by mouth once daily. 90 tablet 3 02/17/2023 12/13/2023 Discontinued Comment on above: Take 1 tablet by jose th once daily. lisinopril 5 mg oral tablet (20 sources) Angiotensin Converting Enzyme Inhibitor Start: take 1 tablet by mouth once daily lisinopril (ZESTRIL) 5 mg tablet Indications: Essential hypertension Take 1 tablet by mouth once daily. 90 tablet 3 12/15/2023 Active Start: 12-20-2020 End: 12-13-2023 take 1 tablet by mouth once daily lisinopril (ZESTRIL, PRINIVIL) 5 mg tablet Indications: Essential hypertension Take 1 tablet by mouth once daily. 90 tablet 3 11/28/2022 12/13/2023 Discontinued Comment on above: Take 1 tablet by jose th once daily. lovastatin 40 mg oral tablet (20 sources) HMG-CoA Reductase Inhibitor Start: 12-15-19 take 1 tablet by mouth once daily at bedtime for hyperlipidemia lovastatin 40 mg tablet Indications: Mixed hyperlipidemia Take 1 tablet by mouth daily at bedtime. For cholesterol. 90 tablet 3 12/15/2023 Active Start: 12-20-2020 End: 12-13-2023 take 1 tablet by mouth once daily at bedtime for hyperlipidemia lovastatin 40 mg tablet Indications: Mixed hyperlipidemia Take 1 tablet by mouth daily at bedtime. For cholesterol. 90 tablet 3 11/28/2022 12/13/2023 Discontinued Comment on above: Take 1 tablet by jose th daily at bedtime. For cholesterol. 24 hr metoprolol succinate 50 mg extended release oral tablet (20 sources) beta-Adrenergic Hoang Start: take 1 tablet by mouth once daily metoprolol succinate ER (TOPROL XL) 50 mg 24 hr tablet Indications: Essential hypertension Take 1 tablet by mouth once daily. 90 tablet 3 02/10/2023 Active Start: 12-20-2020 End: 02-08-2023 take 1 tablet by mouth once daily metoprolol succinate ER (TOPROL XL) 50 mg 24 hr tablet Indications: Essential hypertension Take 1 tablet by mouth once daily. 90 tablet 3 01/11/2022 02/08/2023 Discontinued Comment on above: Take 1 tablet by jose th once daily. nitroglycerin 0.4 mg sublingual tablet (20 sources) Nitrate Vasodilator Start: 12-15-2023 nitroglycerin sublingual (NITROSTAT) 0.4 mg SL tablet Indications: Essential hypertension Dissolve 1 tablet under the tongue every 5 minutes as needed. 25 tablet 3 12/15/2023 Active Start: 12-20-2020 End: 12-13-2023 nitroglycerin sublingual (NI TROSTAT) 0.4 mg SL tablet Indications: Essential hypertension Dissolve 1 tablet under the tongue every 5 minutes as needed. 1 Bottle of 25 6 12/20/2020 01/11/2022 Discontinued Comment on above: Dissolve 1 tablet un radha the tongue every 5 minutes as needed. perflutren lipid microspheres 1.3 mL in NaCl (PF) 0.9% 10 mL injection (DEFINITY) (20 sources) Start: 05-28-2023 End: 08-26-2024 perflutren lipid microspheres 1.3 mL in NaCl (PF) 0.9% 10 mL injection (DEFINITY) Start: 10-08-2021 End: 01-07-2023 perflutren lipid microsphere s 1.3 mL in NaCl (PF) 0.9% 10 mL injection (DEFINITY) 125 ml sodium chloride 9 mg/ ml prefilled syringe (20 sources) Start: 05-28-2023 End: 08-26-2024 sodium chloride 0.9 % (flush ) 10 mL (BD POSIFLUSH) Start: 10-08-2021 End: 01-07-2023 sodium chloride 0.9 % (flush ) 10 mL (BD POSIFLUSH) Completed/Discontinued Medications Medication Drug Class(es) Dates Sig (Normalized) Sig (Original) 8 hr acetaminophen 650 mg extended release oral tablet (20 sources) Start: 06-21-2020 End: 07-31-2021 take 1 tablet by mouth every twelve hours as needed acetaminophen (TYLENOL ARTHRITIS PAIN) 650 mg CR tablet Take 1 tablet by mouth twice daily as needed. 06/21/2020 07/31/2021 Discontinued (Course of therapy completed) End: 05-28-2023 take 1 tablet by mouth every eight hours as needed acetaminophen (TYLENOL) 500 mg tablet Take 500 mg by mouth every 8 hours as needed. 0 05/28/2023 Discontinued (Course of therapy completed) Comment on above: Take 500 mg by mouth every 8 hours as needed. fluticasone / salmeterol (1 source) Corticosteroid, beta2-Adrenergic Agonist Start: End: take 1 puff(s) by mouth twice daily fluticasone-salmeterol (ADVAIR DISKUS) 250-50 mcg/dose inhaler Indications: Chronic obstructive pulmonary disease with acute exacerbation (HCC) , SOB (shortness of breath) Inhale 1 Puff as instructed twice daily. Rinse and gargle mouth after use with water. 60 Each 3 07/06/2021 07/31/2021 Discontinued (Clinical Decision) 12 hr guaiFENesin 600 mg extended release oral tablet (1 source) Start: End: guaiFENesin (MUCINEX) 600 mg 12 hr tablet Indications: Chronic obstructive pulmonary disease with acute exacerbation (HCC) TWICE A DAY 60 tablet 07/06/2021 11/02/2021 Discontinued (Course of therapy completed) icosapent ethyl 1000 mg oral capsule (4 sources) Start: icosapent ethyl (VASCEPA) 1 gram capsule Take 2 capsules by mouth twice daily with meals. 360 capsule 0 10/08/2021 Active Comment on above: Take 2 capsules by m outh twice daily with meals. levoFLOXacin 750 mg oral tablet (1 source) Quinolone Antimicrobial Start: End: levoFLOXacin (LEVAQUIN) 750 mg tablet DAILY 06/23/2021 07/13/2021 Discontinued omeprazole 40 mg delayed release oral capsule (6 sources) Proton Pump Inhibitor Start: take 1 capsule by mouth once daily omeprazole (PRILOSEC) 40 mg capsule Indications: Gastroesophageal reflux disease with esophagitis without hemorrhage Take 1 capsule by mouth once daily. 30 capsule 11 02/11/2022 Active Start: 11-20-2021 take 2 capsules by m outh once daily omeprazole (PRILOSEC) 20 mg capsule Take 2 capsules by mouth once daily. 60 capsule 0 11/20/2021 Active Comment on above: Take 2 capsules by m outh once daily. Take 1 capsule by mo uth once daily. OTC PRODUCT (1 source) End: 07-31-2021 OTC PRODUCT Bio freeze. 1 Application topically as needed 07/31/2021 Discontinued (Course of therapy completed) predniSONE 10 mg oral tablet (5 sources) Start: 03-24-2023 End: 05-28-2023 predniSONE (DELTASONE) 10 mg tablet Take 4 daily for three days, then 3 daily for three days, then 2 daily for three days, then one daily for three days. 30 tablet 0 03/24/2023 05/28/2023 Discontinued (Course of therapy completed) Start: 03-22-2017 End: 08-11-2021 predniSONE (DELTASONE) 10 mg tablet DAILY 03/22/2017 08/11/2021 Discontinued Comment on above: Take 4 daily for thr ee days, then 3 daily for three days, then 2 daily for three days, then one daily for three days. Wheel Chair jonas (1 source) Start: 12-20-2019 End: 12-09-2021 Wheel Chair jonas Indications: Chronic pain of both knees Use as directed 1 Device 12/20/2019 12/09/2021 Discontinued Problems Active Problems Problem Classification Problem Date Documented Da te Episodic/Chronic Anxiety disorders (2 sources) Anticipatory anxiety; Translations: [Anxiety disorder, unspecified] Onset: 02-06-2024 02-06-2024 Chronic Cardiac and circulatory congenital anomalies (20 sources) [...] Coronary atherosclerosis; Translations: [Atherosclerotic heart disease of [place] coronary artery without angina pectoris] Onset: 03-22-2009 [...] Translations: [Depression, unspecified depression type] 09-09-2023 Chronic Osteoarthritis (20 sources) Primary gonarthrosis, bilateral; Translations: [Bilateral primary osteoarthritis of knee] Onset: 01-30-2024 12-01-2023 Chronic Other aftercare (1 source) Wound finding; Translations: [Encounter for other specified aftercare] Episodic Other congenital anomalies (20 sources) Situs inversus viscerum; Translations: [Situs inversus] Onset: 03-03-2009 03-03-2009 Chronic Other connective tissue disease (1 source) Cramp; Translations: [Cramp and spasm] 03-09-2024 Episodic Other diseases of bladder and urethra (20 [...] upper limb] Onset: 08-22-2011 08-22-2011 Chronic Other nervous system disorders (1 source) Other chronic pain; Translations: [Chronic pain of both knees] Onset: 04-21-2024 Chronic Other nutritional; endocrine; and metabolic disorders (20 sources) Simple obesity ; Translations: [Other obesity due to excess calories] Onset: 07-21-2016 07-21-2016 Chronic Other nutritional; endocrine; and metabolic disorders (20 sources) Obese class II; Translations: [Obesity, unspecified] Onset: 12-01-2019 12-01-2019 Chronic Other nutritional; endocrine; and metabolic disorders (20 sources) Obesity caused by energy imbalance; Translations: [Other obesity due to excess calories] Onset: 07-21-2016 07-21-2016 Chronic Other screening for suspected conditions (not mental disorders or infectious disease) (1 source) Patient encounter status; Translations: [Encounter for screening for malignant neoplasm of respiratory organs] 04-26-2024 Episodic Other skin disorders (1 source) Skin lesion; Translations: [Disorder of the skin and subcutaneous tissue, unspecified] 09-09-2023 Episodic Other skin disorders (1 source) Actinic keratosis; Translations: [Actinic keratosis] 09-09-2023 Episodic Residual codes; unclassified (3 sources) Obstructive sleep apnea syndrome; Translations: [Obstructive sleep apnea (adult) (pediatric)] Chronic Respiratory failure; insufficiency; arrest (adult) (20 sources) Chronic hypoxemic respiratory failure; Translations: [Chronic respiratory failure with hypoxia] Onset: 08-24-2021 08-24-2021 Chronic Substance-related disorders (20 sources) Tobacco user; Translations: [Nicotine dependence, unspecified, uncomplicated] Onset: 11-23-2013 11-23-2013 Chronic Transient cerebral ischemia (20 sources) Transient cerebral ischemia; Translations: [Transient cerebral ischemic attack, unspecified] Onset: 06-06-2022 06-07-2022 Chronic Unclassified (1 source) Unknown / UNK(Unknown) Onset: 11-19-2016 Past or Other Problems Problem Classification Problem Date Documented Da te Episodic/Chronic Abdominal pain (16 sources) Left lower quadrant pain; Translations: [Left lower quadrant pain] Onset: 10-31-2010 Resolved: 03-26-2011 03-26-2011 Episodic Appendicitis and other appendiceal conditions (16 sources) Appendicitis; Translations: [Unspecified appendicitis] Onset: 07-21-2016 Resolved: 12-17-2017 12-17-2017 Episodic Cancer of colon (20 sources) Malignant tumor of colon; Translations: [Malignant neoplasm of colon, unspecified] Onset: 10-31-2010 Resolved: 06-19-2020 11-09-2012 Chronic Cancer of colon (20 sources) History of [...] [Impaired fasting glucose] Onset: 08-22-2010 08-22-2010 Episodic Gastrointestinal hemorrhage (16 sources) Rectal hemorrhage; Translations: [Hemorrhage of anus and rectum] Onset: 09-22-2013 Resolved: 05-23-2015 05-23-2015 Episodic Other and unspecified benign neoplasm (16 sources) Benign neoplasm of rectum and anal canal; Translations: [Benign neoplasm of rectum] Onset: 10-31-2010 Resolved: 05-23-2015 05-23-2015 Episodic Other lower respiratory disease (20 sources) Dyspnea; Translations: [Shortness of breath] Onset: 11-27-2015 11-27-2015 Episodic Other lower respiratory disease (20 sources) Hypoxemia; Translations: [Hypoxemia] Onset: 06-12-2017 Resolved: 02-24-2024 06-12-2017 Episodic Other nervous system disorders (16 sources) Polyneuropathy due to drug; Translations: [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] Onset: 03-26-2011 Resolved: 04-08-2011 04-08-2011 Chronic Other non-traumatic joint disorders (11 sources) Pain in right knee; Translations: [Pain in joint, lower leg] Onset: 12-01-2023 09-09-2023 Episodic Other non-traumatic joint disorders (2 sources) Pain in left knee; Translations: [Chronic pain of both knees] Onset: 12-01-2023 Episodic Screening and history of mental health and substance abuse codes (8 sources) Ex-cigarette smoker; Translations: [Personal history of nicotine dependence] Onset: 04-26-2024 Episodic Secondary malignancies (16 sources) Secondary malignant neoplasm of intra-abdominal lymph nodes; Translations: [Secondary and unspecified malignant neoplasm of intra-abdominal lymph nodes] Onset: 11-23-2010 Resolved: 06-19-2020 06-19-2020 Chronic Results Test Name Value Interpretation Reference Range Facility [facility] 08-09-2024 CNPN Telephone (LORELEIWS) GABRIEL SANCHEZ ([id number]) 1955 M Date Time Provider Department 08/09/24 RADHA SHAIKH During your visit today, we recorded the following information about you: Fannie Candelario MA 08/09/2024 4:13 PM Signed Type of letter/form/fax request - Annual Oxygen Prescription Form Form received from fax on 1 floor and placed on MD desk (Dr. Shaikh) for completion. Completed form needs to be faxed to [employer] [phone]. Recent OV note attached. Pt follows with Pulm. Route to [facility] when form completed for processing Fannie Candelario MA 08/12/2024 10:12 AM Signed Faxed. Fannie Candelario MA Allergies As of Date: 08/09/2024 (No Known Allergies) Date Reviewed: 05/20/2024 Reviewed by: Trisha Henderson APRN.INDEPENDENT FILM MAKER - Fully Assessed Reason for Visit: oxygen form [Other] Prescriptions as of 08/12/2024 - clopidogrel (PLAVIX) 75 mg tablet Take 1 tablet by mouth once daily. - nitroglycerin sublingual (NITROSTAT) 0.4 mg SL tablet Dissolve 1 tablet under the tongue every 5 minutes as needed. - ipratropium 20 mcg-albuterol 100 mcg (COMBIVENT RESPIMAT) 20-100 mcg/actuation inhaler Inhale 1 Puff as instructed four times a day as needed. - wazzarzouz-xcwmdmqm-wi rmoterol (BREZTRI AEROSPHERE) 160-9-4.8 mcg/actuation HFA aerosol inhaler Inhale 2 Puffs as instructed two times a day. - lovastatin 40 mg tablet Take 1 tablet by mouth daily at bedtime. For cholesterol. - lisinopril (ZESTRIL) 5 mg tablet Take 1 tablet by mouth once daily. - metoprolol succinate ER (TOPROL XL) 50 mg 24 hr tablet Take 1 tablet by mouth once daily. - aspirin, enteric coated (ASPIRIN, ENTERIC COATED) 81 mg EC tablet Take 1 tablet by mouth once daily. Facility-Administered Medications as of 08/12/2024 - perflutren lipid microspheres 1.3 mL in NaCl (PF) 0.9% 10 mL injection (DEFINITY) - sodium chloride 0.9 % (flush) 10 mL (BD POSIFLUSH) Problem List As Of Date 08/09/2024 Noted Resolved Centrilobular emphysema (HCC) [J43.2] 03/08/2008 SITUS INVERSUS [Q89.3] 03/03/2009 PERCUT TRANSLUM CORON ANGIO STATUS [Z98.61] 03/05/2009 Coronary atherosclerosis [I25.10] 03/22/2009 Diverticulitis [K57.92] 08/20/2010 Impaired fasting glucose [R73.01] 08/22/2010 Colon cancer [C18.9] 10/31/2010 11/09/2012 Diverticulitis of colon (without mention of hem*10/31/2010 Abdominal pain, left lower quadrant [R10.32] 10/31/2010 03/26/2011 Benign neoplasm of rectum and anal canal [D12.8*10/31/2010 05/23/2015 Malignant neoplasm of colon (HCC) [C18.9] 10/31/2010 06/19/2020 Secondary and unspecified malignant neoplasm of*11/23/2010 06/19/2020 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 04/08/2011 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] 08/22/2011 Thrombocytopenia [D69.6] 09/09/2011 Hx-rectal/anal malign [Z85.048] 12/23/2011 History of colon cancer, stage III [Z85.038] 11/09/2012 Rectal bleeding [K62.5] 09/22/2013 05/23/2015 Bladder wall thickening [N32.89] 11/23/2013 BPH (benign prostatic hyperplasia) [N40.0] 11/23/2013 Tobacco use disorder [F17.200] 11/23/2013 Presence of stent in left circumflex coronary a*08/17/2014 Presence of drug coated stent in right coronary*08/17/2014 SOB (shortness of breath) [R06.02] 11/27/2015 Mixed hyperlipidemia [E78.2] 11/27/2015 Appendicitis [K37] 07/21/2016 12/17/2017 Non morbid obesity due to excess calories [E66.*07/21/2016 Essential hypertension [I10] 11/19/2016 Hypoxemia [R09.02] 06/12/2017 02/24/2024 Obesity, Class II, BMI 35-39.9 [E66.812] 12/01/2019 PFO (patent foramen ovale) [Q21.12] 12/20/2020 Elevated glucose [R73.09] 12/20/2020 COPD (chronic obstructive pulmonary disease) (H*03/03/2009 Chronic hypoxemic respiratory failure (HCC) [J9*08/24/2021 TIA (transient ischemic attack) [G45.9] 06/06/2022 S/P placement of cardiac pacemaker [Z95.0] 06/07/2022 Complete heart block (HCC) [I44.2] 06/07/2022 Primary osteoarthritis of both knees [M17.0] 01/30/2024 Encounter Status:Closed by FANNIE CANDELARIO on 08/12/24 [facility] 05-20-2024 CNOV Office Visit (SPAGWO ) GABRIEL SANCHEZ ([id number]) 1955 M Date Time Provider Department 05/20/24 1:45 PM TRISHA HENDERSON During your visit today, we recorded the following information about you: Pulse Respiration 68/minute 20/minute Viktoria Robles LPN 05/20/2024 6:24 PM Signed Review of Systems Constitutional: Negative for activity change, chills, fever and unexpected weight change. Gastrointestinal: Negative for bowel retention or incontinence Genitourinary: Negative for difficulty urinating. Negative for bladder retention or incontinence Musculoskeletal: Positive for arthralgias and back pain. Negative for gait problem, joint swelling, myalgias, neck pain and neck stiffness. Neurological: Negative for weakness, numbness and headaches. Psychiatric/Behavioral : Negative for dysphoric mood, sleep disturbance and suicidal ideas. The patient is nervous/anxious. Trisha Henderson APRN.INDEPENDENT FILM MAKER 05/20/2024 6:24 PM Signed [facility] Today's Date: 05/20/2024 Name: Gabriel Sanchez : 1955 Purpose: New Patient Consultation Chief complaint: Bilateral knee pain (right > left) Referring Clinician: Sukhi Borjas MD Pertinent Past Medical History: Ulnar nerve neuropathy, Presence of drug coated stent in right coronary artery, HLD, HTN, S/P placement of cardiac pacemaker, COPD, Tobacco use disorder, History of colon cancer, stage III, TIA, Obesity, Hx-rectal/anal malign, Pertinent Past Surgeries: none History of Present Illness (HPI): 12/31/2023 - Initial HPI (Obtained by [place] Alberto M.D.) - consulted by Ortho for possible Geniculate Ablation/Block DURATION AND ONSET: The pain complaint has been present for approximately many years. The pain had a gradual onset. He reports that there have been discussions that his cartilage might have been damaged by chemotherapy. He is on O2 for COPD. He saw Dr. Borjas in Ortho, who advised non-operative management. RED FLAG SYMPTOMS: denies red flags. PAIN DESCRIPTION: Timing: Constant Character: Aching Primary Location: bilateral knees, right > left Radiation: none Exacerbating factors: Standing, Walking Relieving factors: Sitting, Lying Down Interferes with: physical activity Patient is here today after having a right genicular nerve RFA on 04/21/2024. Patient stating he received 77% relief. Patient stating he did not do the left side and is not sure if he wants to the left knee as he feels it is not feeling as bad. Patient stating he thought that he would be stronger and feel better than he does currently. Patient states the pain is better but he is still weak. Patient stating he is still getting pain but it is not to the extent that it was at. Current Pain Medications: Neuropathics: NSAIDS: Muscle Relaxants: Topicals: Other Prescription or OTC Pain Medications: Asa 81mg Opioids (when applicable): Anti-depressants or Mood-Stabilizers: None Anti-Coagulants: Plavix 75mg Therapies Attended (Current or Most Recent): No Current Therapies 01/01/2024 AG SPINE COMBINATION Questionnaire [facility] Questionnaire Opiod Risk Tool Completed Date 01/01/2024 Comments Low Risk 0 No question data found. (All drug screens are appropriate unless indicated otherwise) Treatment History: PAIN PROCEDURES: DATE PROCEDURE IMPROVEMENT 04/21/2024 R Gen RFA 70% 01/30/2024 B/L Gen NB 95% relief for right, and he left 80% MEDICATIONS Taken TO DATE (for the chief complaint(s)): Neuropathics: None NSAIDS: None Muscle Relaxants: None Topicals: None Other Prescription or OTC Pain Medications: Tylenol (Acetaminophen), Aspirin Opioids: Oxycodone (eg Percocet) Compliance: PDMP website checked and validated on 05/20/2024 by Trisha Henderson APRN.INDEPENDENT FILM MAKER All prescriptions have been APPROPRIATELY filled. No suspicious activity was identified. 01/01/2024 AG SPINE COMBINATION Questionnaire [facility] Questionnaire Opiod Risk Tool Completed Date 01/01/2024 Comments Low Risk 0 (All drug screens are appropriate unless indicated otherwise) Risk Assessment: SILVANO-7: 01/01/2024 SILVANO - 7 SCORES Score 4 (0-4) minimal anxiety, (5-9) mild anxiety, (10-14) moderate anxiety, (15-21) severe anxiety PHQ-9: 06/19/2011 02/11/2022 01/01/2024 PHQ-9 Score 1 0 5 (0-4) minimal depression, (5-9) mild depression, (10-14) moderate depression, (15-19) moderately severe depression, (20-27) severe depression Opioid Risk Tool: Family History of Substance Abuse: 0 - No Personal History of Substance Abuse: 0 - No Age between 16-45: 0 - No History of Pre-Adolescence Sexual Abuse: 0 - No Psychological Disease: 0 - No (more content not included)... Normal [facility] CT LUNG SCREEN WO IVCONon CT LUNG SCREEN WO IVCON * * *Final Report* * * DATE OF EXAM: May 06 2024 1:22PM [facility] 0562 - CT LUNG SCREEN WO IVCON / PROCEDURE REASON: Former cigarette smoker * * * * Physician Interpretation * * * * EXAMINATION: CHEST CT WITHOUT CONTRAST (LOW-DOSE CT LUNG CANCER SCREENING PROTOCOL) CLINICAL HISTORY: Lung cancer LDCT screening ? absence of signs or symptoms of lung cancer. Personal history of nicotine dependence. Baseline (initial) Technique: Spiral CT acquisition of the chest from the thoracic inlet to the upper abdomen without contrast. MQ: CTLCS_6 Patient characteristics: * Gwop-yt-Jhjfx: 1955; Age at exam: 68 years * Gender: Male * Lung Disease: Asymptomatic (no signs or symptoms of lung disease) * Number of Pack Years: 76.5 * Current smoker (=0) or Number of Years since Quit: 8 * Ordering provider and NPI: LIZ YE [id number] * Interpreting radiologist and NPI: Betty [id number] Exam acquisition parameters: * Exam Date: 05/06/2024 1:22 PM * Site: [facility] * * CT System Advertising Intern: Siemens * CT System Model: Sensation * Tube Current-Time (mA-sec): 38 * Peak Voltage (kV): 120V * Scan Time (sec): 11.98 * Scan Volume (z-length, cm): -32.10 * Pitch: 0.75 * Slice Thickness (mm): 1.5 * CT Dose-Length Product: 122 mGy*cm * CT Dose Index: 2.91mGy * CT Dose Reduction Method: Automated exposure control(AEC) and iterative recon COMPARISON: Chest CT dated 06/11/2022 RESULT: Are nodules present? Yes, 1-5 nodules Nodule 1: This Solid nodule is located in the Right Upper Lobe on slice number 127 with an average diameter of 10.5 mm (14.5 mm x 6.5 mm). No since 06/11/2022, possibly a region of atelectasis or scar given somewhat linear configuration. Nodule 2: This Solid nodule is located in the Right Lower Lobe on slice number 158 with an average diameter of 7.3 mm (8.8 mm x 5.8 mm). Likely unchanged since 06/11/2022. Nodule 3: This Perifissural nodule is located along the right major fissure on slice number 133 with an average diameter of 4.3 mm (5.8 mm x 2.8 mm). Unchanged since 06/11/2022, possibly a lymph node. Other lung nodule comments: Other findings: There is moderate severity diffuse centrilobular emphysema which is associated with bronchial wall thickening there is persistent right-sided volume loss including rightward shift of the heart and mediastinum. Subpleural linear densities predominantly on the right are likely due to atelectasis or scar, similar to the prior chest CT. Dependent debris in the trachea is most consistent with mucous/secretions. No suspicious endobronchial lesion. A left transvenous dual-chamber pacemaker device is present with leads terminating in the right atrial appendage and in the right ventricle. No enlarged thoracic lymph nodes. Small hiatal hernia. Mild atherosclerosis is present within the thoracic aorta which is nondilated measuring 3.4 cm in the mid ascending segment. Moderate to severe diffuse three-vessel coronary artery atherosclerotic calcifications are present, however, this exam is not optimized for coronary artery assessment. The patient is status post PCI. No abnormality identified in the imaged upper abdomen on this noncontrast exam. No destructive lytic or blastic bone lesion. Mild multilevel endplate degenerative changes are present throughout the imaged spine. Emphysema: Moderate (25-50%), Centrilobular, Upper lobe Coronary Artery Calcifications: Circumflex Severe; Left Anterior Descending Moderate; Right Coronary Severe Localizer images: No additional findings. IMPRESSION: LungRADS category: 4B S LungRADS modifier: Significant other (S), coronary artery calcification, moderate or severe LungRADS 0 reason: n/a Recommendations: Chest CT with or without contrast, PET/CT and/or tissue sampling depending on the probability of malignancy and comorbidities. PET/CT may be used when there is a >= 8 mm solid component. Other actionable findings: ========= Reference: [employer]. Lung CT Screening Reporting and Data System (Lung-RADS). Available at: http://www.acr.org/Hema lity-Safety/Resources/ LungRADS Meat Molder: RAYSHAWN Transcribe Date/Time: May 07 2024 2:17P Dictated by : BRAYDEN RIVAS MD This examination was interpreted and the report reviewed and electronically signed by: BRAYDEN RIVAS MD on May 07 2024 2:36PM EST [id number] Normal [facility] No Panel Informationon 04-28 BLANK _ [facility] Implant Date 06/06/2022 [facility] Model 2088tc/65 [facility] PACEMAKER REMOTE CHECKon AV Delay Adaptive Paced Minimum (ms) 200 ms [facility] AV Delay Adaptive Sensed Minimum (ms) 150 ms [facility] Battery Voltage (volts) 3.01 V [facility] Emerson RA Pacing Amplitude (volts) 2.0 V [facility] Emerson RA Pacing Polarity BI [facility] Emerson RA Pacing Pulse Width (ms) 0.5 ms [facility] Emerson RA Sensing Amplitude (mvolts) 0.5 mV [facility] Emerson RA Sensing Polarity BI [facility] Emerson RV Pacing Amplitude (volts) 1.0 V [facility] Emerson RV Pacing Polarity BI [facility] Emerson RV Pacing Pulse Width (ms) 0.5 ms [facility] Emerson RV Sensing Amplitude (mvolts) 2.0 mV [facility] Emerson RV Sensing Polarity BI [facility] Lead1 Mfg [address] Kana Medical [facility] Lead2 Mfg [address] Kana [facility] Location RA [facility] Location RV [facility] Lower Rate (bpm) 60 {beats}/min [facility] Max Sensor Rate (bmp) 130 {beats}/min [facility] Model 2272 Assurity MRI [facility] Pacing Mode DDDR [facility] PM-Device Mfg STJ [facility] PM-Percent Pacing (A) 26.0 % [facility] PM-Percent Pacing (V) 94.0 % [facility] RA Bipolar Impedance ohms 400 ohm [facility] RV Bipolar Impedance ohms 380 ohm [facility] Serial Number [id number] [facility] Serial Number [id number] [facility] Serial Number [id number] [facility] Thresh RA Sensing Amplitude (mvolts) 5.0 mV [facility] Thresh RV Capture Amplitude (volts) 0.75 V [facility] Thresh RV Capture Duration (ms) 0.5 ms [facility] Thresh RV Sensing Amplitude (mvolts) 8.1 mV [facility] Tracking Rate (bpm) 130 {beats}/min [facility] PM remote interrogation. Presenting EGM shows / DRAWING HAND at 62 BPM. Interrogation shows no ventricular high rate or mode switch episodes since last check. Lead impedances and sensing measurements stable. Battery voltage stable. Recommended replacement time is 7.5 more years. Debra PECK NOTE TO PROVIDERS: CARD Flowsheets contain detailed device programming and testing data. Paceart/Interrogation PDF can be found under CARDIAC DATA AND REPORT, Scanned Documents section. PACEART 04/28/2024 Formattin g of this note might be different from the original. PM remote interrogation. Presenting EGM shows / DRAWING HAND at 62 BPM. Interrogation shows no ventricular high rate or mode switch episodes since last check. Lead impedances and sensing measurements stable. Battery voltage stable. Recommended replacement time is 7.5 more years. Debra RN NOTE TO PROVIDERS: CARD Flowsheets contain detailed device programming and testing data. Paceart/Interrogation PDF can be found under CARDIAC DATA AND REPORT, Scanned Documents section. [facility] CNOVon 04-26-2024 CNOV Office Visit (PULMWS ) GABRIEL SANCHEZ ([id number]) 1955 M Date Time Provider Department 04/26/24 1:00 PM LIZ YE PULMWS During your visit today, we recorded the following information about you: Pulse Respiration Blood pressure Weight 71/minute 17/minute 112/64 109.3 kg Liz Ye APRN.INDEPENDENT FILM MAKER 04/26/2024 4:16 PM Signed LUNG SCREENING VISIT PRIMARY CARE PHYSICIAN: Radha Shaikh MD PULMONARY PROVIDER: Dr. Hari Mohan Results will be communicated via letter or electronic record if applicable. Visit Delivery: In Person Patient Visit Type: New to Screening Current or Ex-smoker? Ex Exam Type: baseline LDCT Number of Pack Years: 76.5 Current smoker (=0) or Number of Years since Quit: 8 REQUESTER: The referring provider advised the patient to have screening. HISTORY OF PRESENT ILLNESS: Gabriel Sanchez is a 68 year old Former smoker who presents for lung screening. 2009 colon cancer treated with chemotherapy. Respiratory symptoms include: SOB: Yes with everything Chest tightness: No Coughing: Yes: With mucus Clear Hemoptysis: No Wheezing: No Fever/Chills: No Recent Respiratory Infection: No Unintentional weight loss: No Last 6 Encounter Wt Readings: Date: Wt: 04/26/2024 109.3 kg (241 lb) 03/09/2024 109.7 kg (241 lb 14.4 oz) 02/24/2024 110.7 kg (244 lb) 01/01/2024 108 kg (238 lb) 11/26/2023 108 kg (238 lb) 09/09/2023 110.3 kg (243 lb 3.2 oz) ECOG PERFORMANCE STATUS: 2- Ambulatory and capable of all selfcare; unable to carry out work activities. Up and about > 50% of waking hrs. Modified [employer] [place] Dyspnea Scale (MMRC) I stop for breath after walking about 100 yards or after a few minutes on level ground 3 PAST MEDICAL HISTORY Diagnosis Date Abdominal pain, [...] w Oxaliplatin (stopped for neuropathy) and 5FU Pacemaker PFO (patent foramen ovale) Pneumonia, organism unspecified(486) [...] SURGICAL HISTORY OF 2015 SQ port removal PAST SURGICAL HISTORY OF N/A 06/06/2022 Pacemaker PAST SURGICAL HISTORY OF Bilateral 10/2022 B/L cataract surgery PERC TRANSL COR ANGIO 2004, 2006, 2009 Percutaneous Transluminal Coronary Angio Status SKIN BIOPSY HX FAMILY HISTORY Problem Relation Age of Onset Heart Mother IA other (chf) Mother Heart Father IA Heart disease Brother Heart disease Brother Heart Brother IA Heart Brother IA other (heart murmur) Daughter other (CTS) No Family History clopidogrel (PLAVIX) 75 mg tabletTake 1 tablet by mouth once daily.Disp: 90 tabletRfl: 3 nitroglycerin sublingual (NITROSTAT) 0.4 mg SL tabletDissolve 1 tablet under the tongue every 5 minutes as needed.Disp: 25 tabletRfl: 3 ipratropium 20 mcg-albuterol 100 mcg (COMBIVENT RESPIMAT) 20-100 mcg/actuation inhalerInhale 1 Puff as instructed four times a day as needed.Disp: 1 EachRfl: 5 rbmzghgizj-ggckkkyd-rk rmoterol (BREZTRI AEROSPHERE) 160-9-4.8 mcg/actuation HFA aerosol inhalerInhale 2 Puffs as instructed two times a day.Disp: 1 EachRfl: 5 lovastatin 40 mg tabletTake 1 tablet by mouth daily at bedtime. For cholesterol.Disp: 90 tabletRfl: 3 lisinopril (ZESTRIL) 5 mg tabletTake 1 tablet by mouth once daily.Disp: 90 tabletRfl: 3 metoprolol succinate ER (TOPROL XL) 50 mg 24 hr tabletTake 1 tablet b (more content not included)... Normal [facility] OPERATIVE NOon 04-21-2024 OPERATIVE NO HNO ID: [id number] Author: ROME ALBERTO MD Service: Pain Management Author Type: Physician Type: Operative Report Filed: 04/21/2024 09:17 Note Text: OPERATIVE/PROCEDURE REPORT LOG ID: [id number] SURGERY/PROCEDURE DATE: 04/21/2024 INCISION/PROCEDURE START TIME: 9:03 AM INCISION CLOSE/PROCEDURE END TIME: 9:15 AM SURGEON(S)/PROCEDURALI ST(S) AND BANKING CONSULTANT(S): Surgeon(s) and Role: * [place] Alberto MD - Primary No Additional Staff SURGERY/PROCEDURE(S): Radiofrequency Ablation (RFA), Right superior lateral, superior medial and inferior medial genicular nerves, to treat Right knee osteoarthritis pain. ANESTHESIA: Local Injectate: A total of 3cc, consisting of 1cc of Depo-medrol (40mg/cc) the remainder consisting of 0.75% Bupivacaine An additional 5cc of 1% Lidocaine was used for local anesthesia of the soft tissue and at the targeted location. SURGERY/PROCEDURE DETAILS: Procedure: The patient was prepped and draped in a sterile fashion after being placed in the supine position with the knee of interest flexed to 30 degrees, supported beneath by a pillow, after informed consent was signed and all patient questions were answered including the risks, benefits, alternative treatment options, and prognosis. The risks are as mentioned above, except for pneumothorax. After preliminary films were obtained and after skin preparation, a 25 gauge needle was used to anesthetize the skin with 3-5 cc of 1% Lidocaine. The outer cannula of a 20-gauge RFA needle was inserted in a superior direction with fluoroscopic guidance to contact the bone at the junction of the respective bony structure (medial or lateral femoral condyle and femoral shaft, medial tibial flare and tibial shaft). Needle position was then confirmed in multiple views. Motor test stimulation was done to ensure that there was no inadvertent peripheral nerve stimulation. The soft tissues were then infiltrated with 1-2 ccs. of buffered 1% Lidocaine without Epinephrine. Subsequently, a percutaneous neurotomy was carried out on pulsed mode for 90 seconds at 55 degrees Celsius, followed by two additional times in thermal or lesion mode for 180 seconds at 70 degrees Celsius. Appropriate radiographs were obtained to verify the probe placement during the neurotomy. After ablation and prior to needle removal, the medication noted above was then injected at each site. The needle was then removed from each site. Appropriate radiographs were obtained with results as described above. PRE-OP/PRE-PROCEDURE DIAGNOSIS: Right Knee osteoarthritis POST-OP/POST-PROCEDURE DIAGNOSIS: Same as Preop ESTIMATED BLOOD LOSS: 0 ml SPECIMENS: None IMPLANTABLE DEVICES: NONE DRAINS: None COMPLICATIONS: None CLOSURE TECHNIQUE: Primary PARTICIPATION IN SURGERY/PROCEDURE: I/primary surgeon/proceduralist performed the entire procedure. SIGNATURE: [place] Alberto MD PATIENT NAME: Gabriel Sanchez DATE: 04/21/2024 TIME: 9:17 AM Normal [facility] HISTORY PHYSICALon HISTORY PHYSICAL HNO ID: [id number] Author: ROME ALBERTO MD Service: Pain Management Author Type: Physician Type: H&P Filed: 04/21/2024 08:47 Note Text: LOCAL PROCEDURE HISTORY AND PHYSICAL EXAM SERVICE DATE: 04/21/2024 SERVICE TIME: 8:47 AM Provisional Diagnosis/Treatment Plan: Radiofrequency Ablation (RFA), Right superior lateral, superior medial and inferior medial genicular nerves, to treat Right knee osteoarthritis pain. Subjective Prior to Admission medications as of 04/21/24 0747 Medication Sig Last Dose Taking clopidogrel (PLAVIX) 75 mg tablet Take 1 tablet by mouth once daily. 04/20/2024 at 2300 Yes nbbshkiwxx-jurwuqwo-fb rmoterol (BREZTRI AEROSPHERE) 160-9-4.8 mcg/actuation HFA aerosol inhaler Inhale 2 Puffs as instructed two times a day. 04/08/2024 Yes lovastatin 40 mg tablet Take 1 tablet by mouth daily at bedtime. For cholesterol. 04/20/2024 at 2300 Yes lisinopril (ZESTRIL) 5 mg tablet Take 1 tablet by mouth once daily. 04/20/2024 at 2300 Yes metoprolol succinate ER (TOPROL XL) 50 mg 24 hr tablet Take 1 tablet by mouth once daily. 04/20/2024 at 2300 Yes aspirin, enteric coated (ASPIRIN, ENTERIC COATED) 81 mg EC tablet Take 1 tablet by mouth once daily. 04/20/2024 at 2300 Yes nitroglycerin sublingual (NITROSTAT) 0.4 mg SL tablet Dissolve 1 tablet under the tongue every 5 minutes as needed. ipratropium 20 mcg-albuterol 100 mcg (COMBIVENT RESPIMAT) 20-100 mcg/actuation inhaler Inhale 1 Puff as instructed four times a day as needed. ALLERGIES No Known Allergies Objective PHYSICAL EXAM: The remainder of the physical exam is noncontributory. GENERAL: Alert, no distress, cooperative LUNGS: Lungs clear to auscultation, Good diaphragmatic excursion CARDIAC: Normal S1 and S2; no rubs, murmurs, or gallops NEURO: Gait normal. Reflexes normal and symmetric. Sensation grossly intact BP 146/69 Temp 36.4 ?C (97.5 ?F) (Temporal) Resp 22 SpO2 96% PAIN ASSESSMENT: PAIN EVALUATION 04/21/2024 0741 Pain Level: 0 Assessment/Plan Assessment/Plan Radiofrequency Ablation (RFA), Right superior lateral, superior medial and inferior medial genicular nerves, to treat Right knee osteoarthritis pain. Medication and Non-Pharmacologic VTE Prophylaxis/Anticoagul ants VTE Prophylaxis: VTE prophylaxis appropriate SIGNATURE: [place] Alberto MD PATIENT NAME: Gabriel Sanchez Date: 04/21/2024 Time: 8:47 AM [facility] CNPN Telephone (SPAGBA) GABRIEL SANCHEZ ([id number]) 1955 M Date Time Provider Department 04/07/24 ROME ALBERTO SPAGBA During your visit today, we recorded the following information about you: Taylor Joellen 04/07/2024 11:36 AM Signed ----- Message from Alonzo Parke sent at 04/07/2024 11:18 AM EDT ----- Regarding: Spine AND Pain / [place] Alberto MD / Ablation Patient: Gabriel Sanchez Date of : 1955 Primary Care Provider: Radha Shaikh MD Patient has been identified by name and Date of (Y/N): y Patient: Gabriel Sanchez Date of : 1955 Provider for this encounter: Radha Shaikh MD Reason for the call/escalation: Pt called in to check with office if ablation that is currently scheduled for pt on 04/21 could changed from left lower extremity to right lower extremity, as the right knee hurts more at this time per pt. Pt requested call back from office regarding this matter. Was Patient Referred to 911/Seek Emergency Treatment (Y/N): n Did Patient Agree (Y/N): n Was An Attempt Made To Transfer The Patient To The Office (Y/N): n Were You Able To Reach Someone At The Office (Y/N): n If Yes - Patient Was Transferred To (Caregivers Name): n If No - Which [facility] Leadership Nitroglycerin Supervisor Did You Speak With Regarding This Patient: n Was an appointment scheduled (Y/N): n Reason patient was requesting visit (RFV/signs and symptoms/diagnosis) : procedure/ablation Person calling if other than patient: self Return call to if other than patient: n Best contact number: [phone] Thank you, Alonzo Sanchez April 07, 2024 11:18 AM Tomasa Dominguez 04/07/2024 2:18 PM Addendum I spoke with the patient and he is wondering if he can get the right genicular RFA performed before the left. I advised the patient I would send a message over to our RN at [facility] and to Dr Alberto. Patient would also schedule his left genicular RFA on May 26. Advised patient I would also send a message to get him on the schedule. Tomasa Dominguez Day Treatment Clinician/Art Therapist to Dr. [place] Alberto MD / Trisha Henderson CNP BODYBUILDER [facility] [place] [address] [place] [address] Phone. [phone] / Fax. [phone] Rome Alberto MD 04/07/2024 2:43 PM Signed From the physician perspective, I have no problem with this since we are planning to treat both eventually. Rome Alberto III, MD, MARLON Allergies As of Date: 04/07/2024 (No Known Allergies) Date Reviewed: 03/09/2024 Reviewed by: Fannie Candelario MA - Fully Assessed Reason for Visit: Returning Patient's Call [[phone]] Prescriptions as of 04/07/2024 - clopidogrel (PLAVIX) 75 mg tablet Take 1 tablet by mouth once daily. - nitroglycerin sublingual (NITROSTAT) 0.4 mg SL tablet Dissolve 1 tablet under the tongue every 5 minutes as needed. - ipratropium 20 mcg-albuterol 100 mcg (COMBIVENT RESPIMAT) 20-100 mcg/actuation inhaler Inhale 1 Puff as instructed four times a day as needed. - lfxlzzznjy-ueelwikh-kh rmoterol (BREZTRI AEROSPHERE) 160-9-4.8 mcg/actuation HFA aerosol inhaler Inhale 2 Puffs as instructed two times a day. - lovastatin 40 mg tablet Take 1 tablet by mouth daily at bedtime. For cholesterol. - lisinopril (ZESTRIL) 5 mg tablet Take 1 tablet by mouth once daily. - metoprolol succinate ER (TOPROL XL) 50 mg 24 hr tablet Take 1 tablet by mouth once daily. - aspirin, enteric coated (ASPIRIN, ENTERIC COATED) 81 mg EC tablet Take 1 tablet by mouth once daily. Facility-Administered Medications as of 04/07/2024 - perflutren lipid microspheres 1.3 mL in NaCl (PF) 0.9% 10 mL injection (DEFINITY) - sodium chloride 0.9 % (flush) 10 mL (BD POSIFLUSH) Problem List As Of Date 04/07/2024 Noted Resolved Centrilobular emphysema (HCC) [J43.2] 03/08/2008 SITUS INVERSUS [Q89.3] 03/03/2009 PERCUT TRANSLUM CORON ANGIO STATUS [Z98.61] 03/05/2009 Coronary atherosclerosis [I25.10] 03/22/2009 Diverticulitis [K57.92] 08/20/2010 Impaired fasting glucose [R73.01] 08/22/2010 Colon cancer [C18.9] 10/31/2010 11/09/2012 Diverticulitis of colon (without mention of hem*10/31/2010 Abdominal pain, left lower quadrant [R10.32] 10/31/2010 03/26/2011 Benign neoplasm of rectum and anal canal [D12.8*10/31/2010 05/23/2015 Malignant neoplasm of colon (HCC) [C18.9] 10/31/2010 06/19/2020 Secondary and unspecified malignant neoplasm of*11/23/2010 06/19/2020 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 Normal [facility] CNPNon 04-06-2024 CNPN Telephone (AGSPHWG) GABRIEL SANCHEZ ([id number]) 1955 M Date Time Provider Department 04/06/24 ROME ALBERTO AGSPHWG During your visit today, we recorded the following information about you: Richa Gutierres 04/06/2024 3:43 PM Signed Patient has left a voicemail about his appointments. I have attempted to contact this patient by phone, Left brief message on cell voicemail stating to give us a call back at [phone]. Richa Gutierres Allergies As of Date: 04/06/2024 (No Known Allergies) Date Reviewed: 03/09/2024 Reviewed by: Fannie Candelario MA - Fully Assessed Reason for Visit: Returning Patient's Call [408] Prescriptions as of 04/06/2024 - clopidogrel (PLAVIX) 75 mg tablet Take 1 tablet by mouth once daily. - nitroglycerin sublingual (NITROSTAT) 0.4 mg SL tablet Dissolve 1 tablet under the tongue every 5 minutes as needed. - ipratropium 20 mcg-albuterol 100 mcg (COMBIVENT RESPIMAT) 20-100 mcg/actuation inhaler Inhale 1 Puff as instructed four times a day as needed. - agqsdfwkdh-cjqwqpcn-un rmoterol (BREZTRI AEROSPHERE) 160-9-4.8 mcg/actuation HFA aerosol inhaler Inhale 2 Puffs as instructed two times a day. - lovastatin 40 mg tablet Take 1 tablet by mouth daily at bedtime. For cholesterol. - lisinopril (ZESTRIL) 5 mg tablet Take 1 tablet by mouth once daily. - metoprolol succinate ER (TOPROL XL) 50 mg 24 hr tablet Take 1 tablet by mouth once daily. - aspirin, enteric coated (ASPIRIN, ENTERIC COATED) 81 mg EC tablet Take 1 tablet by mouth once daily. Facility-Administered Medications as of 04/06/2024 - perflutren lipid microspheres 1.3 mL in NaCl (PF) 0.9% 10 mL injection (DEFINITY) - sodium chloride 0.9 % (flush) 10 mL (BD POSIFLUSH) Problem List As Of Date 04/06/2024 Noted Resolved Centrilobular emphysema (HCC) [J43.2] 03/08/2008 SITUS INVERSUS [Q89.3] 03/03/2009 PERCUT TRANSLUM CORON ANGIO STATUS [Z98.61] 03/05/2009 Coronary atherosclerosis [I25.10] 03/22/2009 Diverticulitis [K57.92] 08/20/2010 Impaired fasting glucose [R73.01] 08/22/2010 Colon cancer [C18.9] 10/31/2010 11/09/2012 Diverticulitis of colon (without mention of hem*10/31/2010 Abdominal pain, left lower quadrant [R10.32] 10/31/2010 03/26/2011 Benign neoplasm of rectum and anal canal [D12.8*10/31/2010 05/23/2015 Malignant neoplasm of colon (HCC) [C18.9] 10/31/2010 06/19/2020 Secondary and unspecified malignant neoplasm of*11/23/2010 06/19/2020 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 04/08/2011 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] 08/22/2011 Thrombocytopenia [D69.6] 09/09/2011 Hx-rectal/anal malign [Z85.048] 12/23/2011 History of colon cancer, stage III [Z85.038] 11/09/2012 Rectal bleeding [K62.5] 09/22/2013 05/23/2015 Bladder wall thickening [N32.89] 11/23/2013 BPH (benign prostatic hyperplasia) [N40.0] 11/23/2013 Tobacco use disorder [F17.200] 11/23/2013 Presence of stent in left circumflex coronary a*08/17/2014 Presence of drug coated stent in right coronary*08/17/2014 SOB (shortness of breath) [R06.02] 11/27/2015 Mixed hyperlipidemia [E78.2] 11/27/2015 Appendicitis [K37] 07/21/2016 12/17/2017 Non morbid obesity due to excess calories [E66.*07/21/2016 Essential hypertension [I10] 11/19/2016 Hypoxemia [R09.02] 06/12/2017 02/24/2024 Obesity, Class II, BMI 35-39.9 [E66.9] 12/01/2019 PFO (patent foramen ovale) [Q21.12] 12/20/2020 Elevated glucose [R73.09] 12/20/2020 COPD (chronic obstructive pulmonary disease) (H*03/03/2009 Chronic hypoxemic respiratory failure (HCC) [J9*08/24/2021 TIA (transient ischemic attack) [G45.9] 06/06/2022 S/P placement of cardiac pacemaker [Z95.0] 06/07/2022 Complete heart block (HCC) [I44.2] 06/07/2022 Primary osteoarthritis of both knees [M17.0] 01/30/2024 Encounter Status:Closed by RICHA GUTIERRES on 04/06/24 Normal [facility] CBC W Auto Differential pane l (Bld)on 03-18-2024 Basophils (Bld) [#/Vol] 0.05 10*3/uL Normal <0.11 [facility] Comment on above: Order Comment: Speci men Type: BLOOD SPECIMENOrdering Facility: [facility] Address: [address] [place] [address] Performed By: #### 5 7021-8 ####[facility] LABCLIA [id number] [place] [address] [place] Basophils/100 WBC (Bld) 0.7 % Normal [facility] Comment on above: Order Comment: Speci men Type: BLOOD SPECIMENOrdering Facility: [facility] Address: [address] [place] [address] Performed By: #### 5 7021-8 ####[facility]CLIA [id number] [place] [address] [place] Differential cell count method Nom (Bld) Auto Normal [facility] Comment on above: Order Comment: Speci men Type: BLOOD SPECIMENOrdering Facility: [facility] Address: [address] [place] [address] Performed By: #### 5 7021-8 ####[facility] [id number] [place] [address] [place] Eosinophils (Bld) [#/Vol] 0.30 10*3/uL Normal <0.46 [facility] Comment on above: Order Comment: Speci men Type: BLOOD SPECIMENOrdering Facility: [facility] Address: [address] [place] [address] Performed By: #### 5 7021-8 ####[facility]CLIA [id number] [place] [address] [place] Eosinophils/100 WBC (Bld) 4.2 % Normal [facility] Comment on above: Order Comment: Speci men Type: BLOOD SPECIMENOrdering Facility: [facility] Address: [address] [place] [address] Performed By: #### 5 7021-8 ####[facility] [id number] [place] [address] [place] Erythrocyte distribution width (RBC) [Ratio] 12.4 % Normal 11.5-15.0 [facility] Comment on above: Order Comment: Speci men Type: BLOOD SPECIMENOrdering Facility: [facility] Address: [address] [place] [address] Performed By: #### 5 7021-8 ####[facility]CLIA [id number] [place] [address] [place] Hematocrit (Bld) [Volume fraction] 38.6 % Low 39.0-51.0 [facility] Comment on above: Order Comment: Speci men Type: BLOOD SPECIMENOrdering Facility: [facility] Address: [address] [place] [address] Performed By: #### 5 7021-8 ####[facility] [id number] [place] [address] [place] Hemoglobin (Bld) [Mass/Vol] 12.7 g/dL Low 13.0-17.0 [facility] Comment on above: Order Comment: Speci men Type: BLOOD SPECIMENOrdering Facility: [facility] Address: [address] [place] [address] Performed By: #### 5 7021-8 ####[facility] [id number] [place] [address] [place] Immature granulocytes (Bld) [#/Vol] 0.05 10*3/uL Normal <0.10 [facility] Comment on above: Order Comment: Speci men Type: BLOOD SPECIMENOrdering Facility: [facility] Address: [address] [place] [address] Performed By: #### 5 7021-8 ####[facility] [id number] [place] [address] [place] Immature granulocytes/100 WBC (Bld) 0.7 % Normal [facility] Comment on above: Order Comment: Speci men Type: BLOOD SPECIMENOrdering Facility: [facility] Address: [address] [place] [address] Performed By: #### 5 7021-8 ####[facility] [id number] [place] [address] [place] Lymphocytes (Bld) [#/Vol] 2.12 10*3/uL Normal 1.00-4.00 [facility] Comment on above: Order Comment: Speci men Type: BLOOD SPECIMENOrdering Facility: [facility] Address: [address] [place] [address] Performed By: #### 5 7021-8 ####[facility] [id number] [place] [address] [place] Lymphocytes/100 WBC (Bld) 29.9 % Normal [facility] Comment on above: Order Comment: Speci men Type: BLOOD SPECIMENOrdering Facility: [facility] Address: [address] [place] [address] Performed By: #### 5 7021-8 ####[facility] [id number] [place] [address] [place] MCH (RBC) [Entitic mass] 32.6 pg Normal 26.0-34.0 [facility] Comment on above: Order Comment: Speci men Type: BLOOD SPECIMENOrdering Facility: [facility] Address: [address] [place] [address] Performed By: #### 5 7021-8 ####[facility]CL[facility] [id number] [place] [address] [place] MCHC (RBC) [Mass/Vol] 32.9 g/dL Normal 30.5-36.0 [facility] Comment on above: Order Comment: Speci men Type: BLOOD SPECIMENOrdering Facility: [facility] Address: [address] [place] [address] Performed By: #### 5 7021-8 ####[facility] LABIA [id number] [place] [address] [place] MCV (RBC) [Entitic vol] 99.2 fL Normal 80.0-100.0 [facility] Comment on above: Order Comment: Speci men Type: BLOOD SPECIMENOrdering Facility: [facility] Address: [address] [place] [address] Performed By: #### 5 7021-8 ####[facility]CLIA [id number] [place] [address] [place] Monocytes (Bld) [#/Vol] 0.54 10*3/uL Normal <0.87 [facility] Comment on above: Order Comment: Speci men Type: BLOOD SPECIMENOrdering Facility: [facility] Address: [address] [place] [address] Performed By: #### 5 7021-8 ####[facility] [id number] [place] [address] [place] Monocytes/100 WBC (Bld) 7.6 % Normal [facility] Comment on above: Order Comment: Speci men Type: BLOOD SPECIMENOrdering Facility: [facility] Address: [address] [place] [address] Performed By: #### 5 7021-8 ####[facility] [id number] [place] [address] [place] Neutrophils (Bld) [#/Vol] 4.03 10*3/uL Normal 1.45-7.50 [facility] Comment on above: Order Comment: Speci men Type: BLOOD SPECIMENOrdering Facility: [facility] Address: [address] [place] [address] Performed By: #### 5 7021-8 ####[facility] [id number] [place] [address] [place] Neutrophils/100 WBC (Bld) 56.9 % Normal [facility] Comment on above: Order Comment: Speci men Type: BLOOD SPECIMENOrdering Facility: [facility] Address: [address] [place] [address] Performed By: #### 5 7021-8 ####[facility]CLIA [id number] [place] [id number] [place] Nucleated RBC (Bld) [#/Vol] 10*3/uL Normal <0.01 [facility] Comment on above: Order Comment: Speci men Type: BLOOD SPECIMENOrdering Facility: [facility] Address: [address] [place] [address] Performed By: #### 5 7021-8 ####[facility]IA [id number] [place] [address] [place] Nucleated RBC/100 WBC (Bld) [Ratio] 0.0 /100 WBC Normal [facility] Comment on above: Order Comment: Speci men Type: BLOOD SPECIMENOrdering Facility: [facility] Address: [address] [place] [address] Performed By: #### 5 7021-8 ####[facility]CLIA [id number] [place] [address] [place] Platelet mean volume (Bld) [Entitic vol] 10.0 fL Normal 9.0-12.7 [facility] Comment on above: Order Comment: Speci men Type: BLOOD SPECIMENOrdering Facility: [facility] Address: [address] [place] [address] Performed By: #### 5 7021-8 ####[facility] LABIA [id number] [place] [address] [place] Platelets (Bld) [#/Vol] 108 10*3/uL Low 150-400 [facility] Comment on above: Order Comment: Speci men Type: BLOOD SPECIMENOrdering Facility: [facility] Address: [address] [place] [address] Performed By: #### 5 7021-8 ####[facility] LABIA [id number] [place] [address] [place] RBC (Bld) [#/Vol] 3.89 10*6/uL Low 4.20-6.00 [facility] Comment on above: Order Comment: Speci men Type: BLOOD SPECIMENOrdering Facility: [facility] Address: [address] [place] [address] Performed By: #### 5 7021-8 ####[facility]CLIA [id number] [place] [address] [place] WBC (Bld) [#/Vol] 7.09 10*3/uL Normal 3.70-11.00 [facility] Comment on above: Order Comment: Speci men Type: BLOOD SPECIMENOrdering Facility: [facility] Address: [address] [place] [address] Performed By: #### 5 7021-8 ####[facility]CLIA [id number] [place] [address] [place] [facility] Comprehensive metabolic 2000 panelon 03-18-2024 Albumin [Mass/Vol] 4.3 g/dL Normal 3.9-4.9 [facility] Comment on above: Order Comment: Speci men Type: BLOOD SPECIMENOrdering Facility: [facility] Address: [address] [place] [address] Performed By: #### 2 4323-8, 68671-0 ####[facility]CLIA [id number] [place] [address] [place] ALP [Catalytic activity/Vol] 63 U/L Normal 38-113 [facility] Comment on above: Order Comment: Speci men Type: BLOOD SPECIMENOrdering Facility: [facility] Address: [address] [place] [address] Performed By: #### 2 4323-8, 38528-6 ####[facility]CLIA [id number] [place] [address] [place] ALT [Catalytic activity/Vol] 20 U/L Normal 10-54 [facility] Comment on above: Order Comment: Speci men Type: BLOOD SPECIMENOrdering Facility: [facility] Address: [address] [place] [address] Performed By: #### 2 4323-8, 94266-1 ####[facility]CLIA [id number] [place] [address] [place] Anion gap [Moles/Vol] 8 mmol/L Low 9-18 [facility] Comment on above: Order Comment: Speci men Type: BLOOD SPECIMENOrdering Facility: [facility] Address: [address] [place] [address] Performed By: #### 2 4323-8, 21836-2 ####[facility] LABIA [id number] [place] [address] [place] AST [Catalytic activity/Vol] 27 U/L Normal 14-40 [facility] Comment on above: Order Comment: Speci men Type: BLOOD SPECIMENOrdering Facility: [facility] Address: [address] [place] [address] Performed By: #### 2 4323-8, 49232-1 ####[facility] LABIA [id number] [place] [address] [place] Bilirubin [Mass/Vol] 0.4 mg/dL Normal 0.2-1.3 [facility] Comment on above: Order Comment: Speci men Type: BLOOD SPECIMENOrdering Facility: [facility] Address: [address] [place] [address] Performed By: #### 2 4323-8, 71378-3 ####[facility]CLIA [id number] [place] [address] [place] Calcium [Mass/Vol] 9.2 mg/dL Normal 8.5-10.2 [facility] Comment on above: Order Comment: Speci men Type: BLOOD SPECIMENOrdering Facility: [facility] Address: [address] [place] [address] Performed By: #### 2 4323-8, 32522-0 ####[facility] LABIA [id number] [place] [address] [place] Chloride [Moles/Vol] 104 mmol/L Normal 97-105 [facility] Comment on above: Order Comment: Speci men Type: BLOOD SPECIMENOrdering Facility: [facility] Address: [address] [place] [address] Performed By: #### 2 4323-8, 96322-4 ####[facility]CLIA [id number] [place] [address] [place] CO2 [Moles/Vol] 32 mmol/L High 22-30 [facility] Comment on above: Order Comment: Speci men Type: BLOOD SPECIMENOrdering Facility: [facility] Address: [address] [place] [address] Performed By: #### 2 4323-8, 02887-6 ####[facility] LABIA [id number] [place] [address] [place] Creatinine [Mass/Vol] 1.01 mg/dL Normal 0.73-1.22 [facility] Comment on above: Order Comment: Speci men Type: BLOOD SPECIMENOrdering Facility: [facility] Address: [address] [place] [address] Performed By: #### 2 4323-8, ####[facility] [id number] [place] [address] [place] Creatinine and Glomerular filtration rate.predicted panel (S/P/Bld) 80 mL/min/1.73m??? Normal >=60 [facility] Comment on above: Order Comment: Speci men Type: BLOOD SPECIMENOrdering Facility: [facility] Address: [address] [place] [address] Result Comment: Eva mated Glomerular Filtration Rate (eGFR) is calculated using the 2020 CKD-EPI creatinine equation. This equation utilizes serum creatinine, sex, and age as parameters. The creatinine assay has traceable calibration to isotope dilution-mass spectrometry. Refer to KDIGO guidelines for clinical interpretation. In patients with unstable renal function, e.g. those with acute kidney injury, the eGFR may not accurately reflect actual GFR. Performed By: #### 2 4323-8, 99656-4 ####[facility] LABIA [id number] [place] [id number] [place] Glucose [Mass/Vol] 97 mg/dL Normal 74-99 [facility] Comment on above: Order Comment: Darien roman Type: BLOOD SPECIMENOrdering Facility: [facility] Address: [address] [place] [address] Result Comment: The [place] Diabetes Association (ADA) provides guidance for cutoff values for fasting glucose and random glucose. The ADA defines fasting as no caloric intake for at least 8 hours. Fasting plasma glucose results between 100 to 125 mg/dL indicate increased risk for diabetes (prediabetes). Fasting plasma glucose results greater than or equal to 126 mg/dL meet the criteria for diagnosis of diabetes. In the absence of unequivocal hyperglycemia, results should be confirmed by repeat testing. In a patient with classic symptoms of hyperglycemia or hyperglycemic crisis, random plasma glucose results greater than or equal to 200 mg/dL meet the criteria for diagnosis of diabetes. Reference: Standards of Medical Care in Diabetes 2016, [place] Diabetes Association. Diabetes Care. 2016.39(Suppl 1). Performed By: #### 2 4323-8, 62353-5 ####[facility]CLIA [id number] [place] [address] [place] Potassium [Moles/Vol] 4.6 mmol/L Normal 3.7-5.1 [facility] Comment on above: Order Comment: Darien roman Type: BLOOD SPECIMENOrdering Facility: [facility] Address: [address] [place] [address] Performed By: #### 2 4323-8, 13255-4 ####[facility]CLIA [id number] [place] [address] [place] Protein [Mass/Vol] 6.7 g/dL Normal 6.3-8.0 [facility] Comment on above: Order Comment: Darien roman Type: BLOOD SPECIMENOrdering Facility: [facility] Address: [address] [place] [address] Performed By: #### 2 4323-8, 64609-7 ####[facility]CLIA [id number] [place] [address] [place] Sodium [Moles/Vol] 144 mmol/L Normal 136-144 [facility] Comment on above: Order Comment: Speci men Type: BLOOD SPECIMENOrdering Facility: [facility] Address: [address] [place] [address] Performed By: #### 2 4323-8, 57824-1 ####[facility]CLIA [id number] [address] [address] [place] Urea nitrogen [Mass/Vol] 14 mg/dL Normal 9-24 [facility] Comment on above: Order Comment: Speci men Type: BLOOD SPECIMENOrdering Facility: [facility] Address: [address] [place] [address] Performed By: #### 2 4323-8, 06037-8 ####[facility] LABIA [id number] [place] [address] [place] HbA1c (Bld)on 03-18-2024 Average glucose Estimated from glycated hemoglobin (Bld) [Mass/Vol] 105 mg/dL Normal [facility] Comment on above: Order Comment: Speci men Type: BLOOD SPECIMENOrdering Facility: [facility] Address: [address] [place] [address] Result Comment: eAG: (Estimated average glucose) is a calculated value from HgbA1c and is litigation claim representative of the average blood glucose level in the last 2-3 month period. Performed By: #### 5 5454-3 ####[facility] LABIA [id number] [place] [address] [place] HbA1c (Bld) [Mass fraction] 5.3 % Normal 4.3-5.6 [facility] Comment on above: Order Comment: Speci men Type: BLOOD SPECIMENOrdering Facility: [facility] Address: [address] [place] [address] Result Comment: [place] Diabetes Association guidelines indicate that patients with HgbA1c in the range 5.7-6.4% are at increased risk for development of diabetes, and intervention by lifestyle modification may be beneficial. HgbA1c greater or equal to 6.5% is considered diagnostic of diabetes. Performed By: #### 5 5454-3 ####[facility]CLIA [id number] [facility] [place] [address] [place] Lipid 1996 panelon 4 Cholesterol [Mass/Vol] 157 mg/dL Normal <200 [facility] Comment on above: Order Comment: Speci men Type: BLOOD SPECIMENOrdering Facility: [facility] Address: [address] [place] [address] Result Comment: <200 mg/dL, Desirable 200-239 mg/dL, Borderline high >239 mg/dL, High Performed By: #### 2 4323-8, 79502-8 ####[facility]CLIA [id number] [address] [place] Cholesterol in HDL [Mass/Vol] 33 mg/dL Low >39 [facility] Comment on above: Order Comment: Speci men Type: BLOOD SPECIMENOrdering Facility: [facility] Address: [address] [place] [address] Result Comment: 40-5 9 mg/dL, Acceptable >59 mg/dL, High: Negative risk factor for coronary heart disease <40 mg/dL, Low: Positive risk factor for coronary heart disease Performed By: #### 2 4323-8, 39109-8 ####[facility] [id number] [address] [place] Cholesterol in LDL [Mass/Vol] 77 mg/dL Normal <100 [facility] Comment on above: Order Comment: Speci men Type: BLOOD SPECIMENOrdering Facility: [facility] Address: [address] [place] [address] Result Comment: <100 mg/dL, Optimal 100-129 mg/dL, Near optimal/above optimal 130-159 mg/dL, Borderline high 160-189 mg/dL, High >189 mg/dL, Very high Secondary prevention optimal LDL Cholesterol levels are recommended to be < 70 mg/dL Performed By: #### 2 4323-8, 16722-5 ####[facility]CLIA [id number] [address] [place] Cholesterol in LDL/Cholesterol in HDL [Mass ratio] 2.33 {ratio} Normal <2.54 [facility] Comment on above: Order Comment: Darien roman Type: BLOOD SPECIMENOrdering Facility: [facility] Address: [address] [place] [address] Result Comment: Refe rence: 1. National Cholesterol Education Program ATP III Guideline At-A-Glance Quick Desk Reference: National Heart, Lung, and Blood [place]. National Institutes of Health. 2001: NIH Publication No. 01-3305. 2. An International Atherosclerosis Society position paper: global recommendations for the management of dyslipidemia: executive summary, Atherosclerosis. 2014: 232(2):410-413. Performed By: #### 2 4323-8, 17190-8 ####[facility]CLIA [id number] [place] [address] [place] Cholesterol in VLDL [Mass/Vol] 47 mg/dL High <30 [facility] Comment on above: Order Comment: Darien roman Type: BLOOD SPECIMENOrdering Facility: [facility] Address: [address] [place] [address] Performed By: #### 2 4323-8, 69763-4 ####[facility]CLIA [id number] [address] [place] Cholesterol non HDL [Mass/Vol] 124 mg/dL Normal <130 [facility] Comment on above: Order Comment: Bretti men Type: BLOOD SPECIMENOrdering Facility: [facility] Address: [address] [place] [address] Result Comment: <130 mg/dL, Optimal 130-159 mg/dL, Near optimal/above optimal 160-189 mg/dL, Borderline high 190-219 mg/dL, High >219 mg/dL, Very high Secondary prevention optimal non HDL Cholesterol levels are recommended to be <100 mg/dL Performed By: #### 2 4323-8, 54041-6 ####[facility]IA [id number] [place] [id number] [place] Cholesterol.total/Ch olesterol in HDL [Mass ratio] 4.76 {ratio} Normal <5.10 [facility] Comment on above: Order Comment: Speci men Type: BLOOD SPECIMENOrdering Facility: [facility] Address: [address] [place] [address] Performed By: #### 2 4323-8, 44966-4 ####[facility]CLIA [id number] [place] [address] [place] FASTING TIME 12 hrs Normal [facility] Comment on above: Order Comment: Speci men Type: BLOOD SPECIMENOrdering Facility: [facility] Address: [address] [place] [address] Performed By: #### 2 4323-8, 81255-3 ####[facility]CLIA [id number] [place] [address] [place] DAVID Triglyceride [Mass/Vol] 236 mg/dL High <150 [facility] Comment on above: Order Comment: Speci men Type: BLOOD SPECIMENOrdering Facility: [facility] Address: [address] [place] [address] Result Comment: <150 mg/dL, Normal 150-199 mg/dL, Borderline high 200-499 mg/dL, High >499 mg/dL, Very high Performed By: #### 2 4323-8, 60126-2 ####[facility] LABCLIA [id number] [place] [address] [place] CN[place]av[place] 03-16-2024 CNPN Telephone (AGSPINE3) GABRIEL SANCHEZ ([id number]) 1955 Date Time Provider Department 03/16/24 ROME ALBERTO AGSPINE3 During your visit today, we recorded the following information about you: Tamara Tomasa 03/16/2024 12:21 PM Signed Received email that patient's right genicular RFA scheduled for 03/19/2024 was cancelled as it is still pending approval by insurance. Left message for patient to return call to reschedule. Patient's right genicular RFA is currenly scheduled for 04/21/24 and if patient wanted to keep appointment in [place], next available would be May 26 Tomasa Dominguez [place] to Dr. Rome Alberto MD / Trisha Henderson CNP, APRN [facility] [place] [address] [facility] [address] [place] [address] Phone. [phone] / Fax. [phone] Richa Gutierres 03/17/2024 10:23 AM Signed Received the an email - Surgical - Clinical Financial Clearance Response Received - for this patient's procedure that was scheduled with Dr. Alberto in [place] for 03/19/24. Patient had also left a voicemail returning our call. I have attempted to contact this patient by phone, Left brief message on cell voicemail stating that he is currently still pending with the insurance and we would have to push him out to May due to the fact that he is currently scheduled for [place] on 04/21/24. I have asked him to please give us a call back to discuss. Richa Gutierres Allergies As of Date: 03/16/2024 (No Known Allergies) Date Reviewed: 03/09/2024 Reviewed by: Fannie Candelario MA - Fully Assessed Reason for Visit: Appointment [186] Prescriptions as of 03/17/2024 - clopidogrel (PLAVIX) 75 mg tablet Take 1 tablet by mouth once daily. - nitroglycerin sublingual (NITROSTAT) 0.4 mg SL tablet Dissolve 1 tablet under the tongue every 5 minutes as needed. - ipratropium 20 mcg-albuterol 100 mcg (COMBIVENT RESPIMAT) 20-100 mcg/actuation inhaler Inhale 1 Puff as instructed four times a day as needed. - jcfnokeitn-tbsnkdmt-kh rmoterol (BREZTRI AEROSPHERE) 160-9-4.8 mcg/actuation HFA aerosol inhaler Inhale 2 Puffs as instructed two times a day. - lovastatin 40 mg tablet Take 1 tablet by mouth daily at bedtime. For cholesterol. - lisinopril (ZESTRIL) 5 mg tablet Take 1 tablet by mouth once daily. - metoprolol succinate ER (TOPROL XL) 50 mg 24 hr tablet Take 1 tablet by mouth once daily. - aspirin, enteric coated (ASPIRIN, ENTERIC COATED) 81 mg EC tablet Take 1 tablet by mouth once daily. Facility-Administered Medications as of 03/17/2024 - perflutren lipid microspheres 1.3 mL in NaCl (PF) 0.9% 10 mL injection (DEFINITY) - sodium chloride 0.9 % (flush) 10 mL (BD POSIFLUSH) Problem List As Of Date 03/16/2024 Noted Resolved Centrilobular emphysema (HCC) [J43.2] 03/08/2008 SITUS INVERSUS [Q89.3] 03/03/2009 PERCUT TRANSLUM CORON ANGIO STATUS [Z98.61] 03/05/2009 Coronary atherosclerosis [I25.10] 03/22/2009 Diverticulitis [K57.92] 08/20/2010 Impaired fasting glucose [R73.01] 08/22/2010 Colon cancer [C18.9] 10/31/2010 11/09/2012 Diverticulitis of colon (without mention of hem*10/31/2010 Abdominal pain, left lower quadrant [R10.32] 10/31/2010 03/26/2011 Benign neoplasm of rectum and anal canal [D12.8*10/31/2010 05/23/2015 Malignant neoplasm of colon (HCC) [C18.9] 10/31/2010 06/19/2020 Secondary and unspecified malignant neoplasm of*11/23/2010 06/19/2020 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 04/08/2011 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] 08/22/2011 Thrombocytopenia [D69.6] 09/09/2011 Hx-rectal/anal malign [Z85.048] 12/23/2011 History of colon cancer, stage III [Z85.038] 11/09/2012 Rectal bleeding [K62.5] 09/22/2013 05/23/2015 Bladder wall thickening [N32.89] 11/23/2013 BPH (benign prostatic hyperplasia) [N40.0] 11/23/2013 Tobacco use disorder [F17.200] 11/23/2013 Presence of stent in left circumflex coronary a*08/17/2014 Presence of drug coated stent in right coronary*08/17/2014 SOB (shortness of breath) [R06.02] 11/27/2015 Mixed hyperlipidemia [E78.2] 11/27/2015 Appendicitis [K37] 07/21/2016 12/17/2017 Non morbid obesity due to excess calories [E66.*07/21/2016 Essential hypertension [I10] 11/19/2016 Hypoxemia [R09.02] 06/12/2017 02/24/2024 Obesity, Class II, BMI 35-39.9 [E66.9] 12/01/2019 PFO (patent foramen ovale) [Q21.12] 12/20/2020 Elevated glucose [R73.09] 12/20/2020 COPD (chronic obstructive pulmonary disease) (H*03/03/2009 Chronic hypoxemic respiratory failure (HCC) [J9*08/24/2021 TIA (transient ischemic attack) [G45.9] 06/06/2022 S/P placement of cardiac pacemaker [Z95.0] 06/07/2022 Complete heart block (HCC) [I44.2] 06/07/2022 Primary osteoarthritis of both knees [M17.0] 01/30/2024 Encounter Status:Closed by TOMASA DOMINGUEZ on 03/16/24 [facility] CNOVon 03-09-2024 CNOV Office Visit (FAMPWS ) GABRIEL SANCHEZ ([id number]) 1955 M Date Time Provider Department 03/09/24 3:00 PM RADHA SHAIKH FAMPWS During your visit today, we recorded the following information about you: Pulse Respiration Blood pressure Weight 78/minute 16/minute 128/80 109.7 kg Radha Shaikh MD 03/09/2024 3:27 PM Signed Chief Complaint Patient presents with: 6 Month Exam HPI Gabriel Sanchez is a 68 year old male who presents here today for 6 month follow up. No bowel, Gi, or urinary issues. Pt asking if his RBC level is low as he read that SOB can be caused by low RBC count.CBC was checked a year ago and was normal. Will recheck with labs that pt gets done. Pain: Chronic; follows with Pain Management Dr. Alberto. Dr. Alberto has pt scheduled to get some nerves burned for relief of knee pain. He has some middle back pain off and on x 3 weeks, sharp pains. He has used some Tylenol Arthritis. No heat or ice. No injury. He wonders if he has a pinched nerve. He gets cramps to ankles, feet, hands, arms. His thumbs and fingers cramp up a lot especially when biting fingernails. No cramps to the calves or thighs. Has cramps somewhere daily. COPD: Follows with YOA[facility] Rivera and is currently taking Combivent Respimat QID prn and Breztri 160-9-4.8 2 puffs bid. Does check O2 at home 12/05. Does have Oxygen concentrator that he uses at night at 6 L. Uses Mucinex occasionally, due to coughing stuff up. O2 dries up his sinuses. He does check his pulse ox and pulse at home. When he is resting his pulse ox reading is around 97%-100%. He states that if he doesn't have oxygen on it will go down 85%. He states his O2 level is better with the oxygen. HTN/Lipid/CAD: Does not check BP at home. Follows with [facility]. He would like to stay within [facility], has appt to see Dr. Valdovinos in May. Taking Plavix 75 mg daily, Losartan 40 mg daily, Lisinopril 5 mg daily, Aspirin 81 mg daily and Toprol xl 50 mg daily. No chest pains or dizziness, no unusual SOB. Past medical history, appointments, medications, allergies reviewed. Previous Medical History PAST MEDICAL HISTORY Diagnosis Date Abdominal pain, left lower quadrant Acute myocardial infarction of other specified sites, episode of care unspecified 2003 Myocardial Infarction Asthma Benign neoplasm of rectum and anal canal Chronic hypoxemic respiratory failure (HCC) 08/24/2021 Colon cancer (HCC) 10/20/2010 COPD (chronic obstructive pulmonary disease) ([facility]) [address] Alfonso Coronary artery disease Diverticulitis Diverticulitis of colon (without mention of hemorrhage)(562.11) Hernia Hyperlipidemia, mixed Hypertension Impaired glucose tolerance Malignant neoplasm of colon, unspecified site 10/2010 Rx w Oxaliplatin (stopped for neuropathy) and 5FU Pacemaker PFO (patent foramen ovale) Pneumonia, organism unspecified(486) [...] Problem Relation Age of Onset Heart Mother IA other (chf) Mother Heart Father IA Heart disease Brother Heart disease Brother Heart Brother IA Heart Brother IA other (heart murmur) Daughter other (CTS) No Family History Patient Allergies ALLERGIES No Known Allergies Current Medications Current Outpatient Medications on File Prior to Visit Medication Sig clopidogrel (PLAVIX) 75 mg tablet Take 1 tablet by mouth once daily. nitroglycerin sublingual (NITROSTAT) 0.4 mg SL tablet Dissolve 1 tablet under the tongue every 5 minutes as needed. ipratropium 20 mcg-albuterol 100 mcg ( (more content not included)... Normal [facility] CNOVon 02-24-2024 CNOV Office Visit (PULMWS ) GABRIEL SANCHEZ ([id number]) 1955 M Date Time Provider Department 02/24/24 3:15 PM CAMILA MOHAN PULMWS During your visit today, we recorded the following information about you: Pulse Respiration Blood pressure Weight 74/minute 16/minute 132/86 110.7 kg Camila Mohan MD 02/24/2024 8:19 PM Signed . Respiratory [place] Note Patient name: Gabriel Sanchez PCP: Radha Shaikh MD CC: Follow-up COPD HPI: Gabriel Sancehz 68 year old male former 70 pack year smoker, quitting in 2016 with PMH significant for obesity, moderate COPD, chronic hypoxemic respiratory failure, CHB s/p PPM, CAD, dextrocardia, HLD, СВЕТЛАНА non compliant with CPAP, colon cancer. Current therapy with Breztri and as needed Combivent. Non-compliant with triple inhaler therapy stating not helpful and too expensive. Overusing Combivent. At [facility] with GERARD, he agreed to retry Breztri and have repeat sleep study. Did not have sleep study done. Taking Breztri but does not think it helps but using anyway. Uses Combivent every day at least once daily. Some days will use his Combivent up to 6 times. He has not noted any particular trigger for his shortness of breath other than activity. He denies audible wheezing, chronic cough or sputum production. DME: [employer] 4-6 L PAST MEDICAL HISTORY Diagnosis Date Abdominal pain, left lower quadrant Acute myocardial infarction of other specified sites, episode of care unspecified 2003 Myocardial Infarction Asthma Benign neoplasm of rectum and anal canal Chronic hypoxemic respiratory failure (HCC) 08/24/2021 Colon cancer ([facility]) 10/20/2010 COPD (chronic obstructive pulmonary disease) ([facility]) [address] Alfonso Coronary artery disease Diverticulitis Diverticulitis of colon (without mention of hemorrhage)(562.11) Hernia Hyperlipidemia, mixed Hypertension Impaired glucose tolerance Malignant neoplasm of colon, unspecified site 10/2010 Rx w Oxaliplatin (stopped for neuropathy) and 5FU Pacemaker PFO (patent foramen ovale) Pneumonia, organism unspecified(486) 2006 inpatient x 1 wk Postsurgical percutaneous transluminal coronary angioplasty status 2003 2 stents Ruptured appendix 06/24/2016 S/P placement of cardiac pacemaker 06/07/2022 Patient underwent implantation of [place] [employer] dual-chamber permanent pacemaker with right atrial and right ventricular septal leads with Dr. Tracy on 06/06/2022. ALLERGIES No Known Allergies clopidogrel (PLAVIX) 75 mg tabletTake 1 tablet by mouth once daily.Disp: 90 tabletRfl: 3 nitroglycerin sublingual (NITROSTAT) 0.4 mg SL tabletDissolve 1 tablet under the tongue every 5 minutes as needed.Disp: 25 tabletRfl: 3 ipratropium 20 mcg-albuterol 100 mcg (COMBIVENT RESPIMAT) 20-100 mcg/actuation inhalerInhale 1 Puff as instructed four times a day as needed.Disp: 1 EachRfl: 5 lvepaergwb-sduluhlh-qz rmoterol (BREZTRI AEROSPHERE) 160-9-4.8 mcg/actuation HFA aerosol inhalerInhale 2 Puffs as instructed two times a day.Disp: 1 EachRfl: 5 lovastatin 40 mg tabletTake 1 tablet by mouth daily at bedtime. For cholesterol.Disp: 90 tabletRfl: 3 lisinopril (ZESTRIL) 5 mg tabletTake 1 tablet by mouth once daily.Disp: 90 tabletRfl: 3 metoprolol succinate ER (TOPROL XL) 50 mg 24 hr tabletTake 1 tablet by mouth once daily.Disp: 90 tabletRfl: 3 aspirin, enteric coated (ASPIRIN, ENTERIC COATED) 81 mg EC tabletTake 1 tablet by mouth once daily.Disp: Rfl: Social History Tobacco Use Smoking status: Former Packs/day: 1.50 Years: 45.00 Additional pack years: 0.00 Total pack years: 67.50 Types: Cigarettes Start date: 06/13/1971 Quit date: 06/24/2016 Years since quittin.6 Smokeless tobacco: Never Tobacco comments: Parent's non smokers. Spouse smokes in home. 12/14/2015 Currently use vape Vaping Use Vaping Use: Former Substances: States no tobacco in the device but tastes like tobacco Substance Use Topics Alcohol use: No Drug use: Not Currently Types: Marijuana FAMILY HISTORY Problem Relation Age of Onset Heart Mother IA other (chf) Mother Heart Father IA Heart disease Brother Heart disease Brother Heart Brother IA Heart Brother IA other (heart murmur) Daughter other (CTS) No [...] HEART SURGERY HX INSJ TUNNELED CTR VAD (more content not included)... Normal [facility] CNCOon 02-11-2024 CNCO Letter Text Normal [facility] CNCOon 02-06-2024 CNCO Letter Text Normal [facility] CNOVon 02-06-2024 CNOV Office Visit (DENIS ) GABRIEL SANCHEZ ([id number]) 1955 M Date Time Provider Department 02/06/24 2:15 PM TRISHA HENDERSON During your visit today, we recorded the following information about you: Pulse Respiration 75/minute 18/minute Trisha Henderson APRN.CNP 02/06/2024 4:06 PM Signed [facility] Today's Date: 02/06/2024 Name: Gabriel Sanchez : 1955 Purpose: New Patient Consultation Chief complaint: Bilateral knee pain (right > left) Referring Clinician: Sukhi Borjas MD Pertinent Past Medical History: Ulnar nerve neuropathy, Presence of drug coated stent in right coronary artery, HLD, HTN, S/P placement of cardiac pacemaker, COPD, Tobacco use disorder, History of colon cancer, stage III, TIA, Obesity, Hx-rectal/anal malign, Pertinent Past Surgeries: none History of Present Illness (HPI): 12/31/2023 - Initial HPI (Obtained by Rome Alberto M.D.) - consulted by Ortho for possible Geniculate Ablation/Block DURATION AND ONSET: The pain complaint has been present for approximately many years. The pain had a gradual onset. He reports that there have been discussions that his cartilage might have been damaged by chemotherapy. He is on O2 for COPD. He saw Dr. Borjas in Ortho, who advised non-operative management. RED FLAG SYMPTOMS: denies red flags. PAIN DESCRIPTION: Timing: Constant Character: Aching Primary Location: bilateral knees, right > left Radiation: none Exacerbating factors: Standing, Walking Relieving factors: Sitting, Lying Down Interferes with: physical activity Patient reporting he received excellent relief from the genicular nerve block that was done on 01/30/2024. Patient states he had 95% relief from the right side and 80% relief from the left side. Patient states it lasted longer than what he expected. Patient would like to proceed with the radiofrequency ablation as the patient feels he benefited from the nerve block. Current Pain Medications: Neuropathics: NSAIDS: Muscle Relaxants: Topicals: Other Prescription or OTC Pain Medications: Asa 81mg Opioids (when applicable): Anti-depressants or Mood-Stabilizers: None Anti-Coagulants: Plavix 75mg Therapies Attended (Current or Most Recent): No Current Therapies 01/01/2024 AG SPINE COMBINATION Questionnaire GREENLIGHT Questionnaire Opiod Risk Tool Completed Date 01/01/2024 Comments Low Risk 0 No question data found. (All drug screens are appropriate unless indicated otherwise) Treatment History: PAIN PROCEDURES: DATE PROCEDURE IMPROVEMENT 01/30/2024 B/L Gen NB 95% relief for right, and he left 80% MEDICATIONS Taken TO DATE (for the chief complaint(s)): Neuropathics: None NSAIDS: None Muscle Relaxants: None Topicals: None Other Prescription or OTC Pain Medications: Tylenol (Acetaminophen), Aspirin Opioids: Oxycodone (eg Percocet) Compliance: PDMP website checked and validated on 02/06/2024 by Trisha Henderson APRN.INDEPENDENT FILM MAKER All prescriptions have been APPROPRIATELY filled. No suspicious activity was identified. 01/01/2024 AG SPINE COMBINATION Questionnaire GREENLIGHT Questionnaire Opiod Risk Tool Completed Date 01/01/2024 Comments Low Risk 0 (All drug screens are appropriate unless indicated otherwise) Risk Assessment: SILVANO-7: 01/01/2024 SILVANO - 7 SCORES Score 4 (0-4) minimal anxiety, (5-9) mild anxiety, (10-14) moderate anxiety, (15-21) severe anxiety PHQ-9: 06/19/2011 02/11/2022 01/01/2024 PHQ-9 Score 1 0 5 (0-4) minimal depression, (5-9) mild depression, (10-14) moderate depression, (15-19) moderately severe depression, (20-27) severe depression Opioid Risk Tool: Family History of Substance Abuse: 0 - No Personal History of Substance Abuse: 0 - No Age between 16-45: 0 - No History of Pre-Adolescence Sexual Abuse: 0 - No Psychological Disease: 0 - No Risk Total: 0 (0-3, low risk or no risk; 4-7, moderate risk, 8+, high risk) Diagnostic Studies: Relevant Imaging: MRI Spine Report No resulted procedures found. X-ray Bilat. Knee 11/2023 RESULT: Tricompartmental osteoarthritis, severe in the medial compartments with nkqd-fn-mzii contact, slightly worsened compared to 08/26/2019. Bilateral genu varus and mild lateral tibial translation. Small bilateral joint effusions. No fracture. IMPRESSION: Severe medial compartment predominant osteoarthritis in both knees slightly worse compared to 08/26/2019. X-ray Bilat. Knee 08/2019 RESULT: Severe medial compartment joint space narrowing bilaterally. Orgj-nf-pwbj contact medially on the right. Subchondral sclerosis, osteophytes around the knee joints. Lateral trans (more content not included)... [facility] Telephone (SPAGWO) GABRIEL SANCHEZ ([id number]) 1955 M Date Time Provider Department 02/06[facility] During your visit today, we recorded the following information about you: Josef Conner 02/06/2024 2:54 PM Signed Procedure(s) being scheduled:Right genicular RFA w/ fluoro, then 2 weeks later, left genicular RFA with fluoro 1.Are you diabetic No 2. Are you on any blood thinners? Yes. Please list the current medications being prescribed Plavix. If yes, does it require a hold? Yes If yes, was approval letter sent? Yes 3. Are you taking any aspirin? Yes. Please list the current medications being prescribed 81 mg. 4. Are you currently taking any antibiotics? No 5. Do you have any allergies to latex? No 6. Do you have any allergies to seafood or shellfish? No 7. Do you have any allergies to x-ray dye? No 8. Did the physician instruct you to take any medication prior to your procedure? No 9. Does this procedure require a drop hammer pile driver operator? Yes If yes, has patient been notified that a drop hammer pile driver operator is needed and must be present at check in? yes 10. Were the pre-procedure instructions explained and provided to the patient? Yes 11. Do you have a pacemaker? Yes 12. Do you have an internal stimulator of any kind? No If yes, please bring the remote with you to your procedure visit. 13. Have you received the COVID-19 Vaccine? No. (Patient should not receive a procedure including steroids 14 days prior to their first dose of the COVID vaccine. They should not receive any procedure containing steroids in the time frame between their 1st and 2nd doses of the COVID vaccine. They should not receive a procedure containing steroids 14 days after their 2nd dose of the COVID vaccine.) Tomasa Brady 02/06/2024 3:29 PM Signed LVM for patient to return call to schedule genicular RFAs. Anticoag clearance is not required for genicular RFAs Tomasa Domingeuz Day Treatment Clinician/Art Therapist to Dr. Rome Alberto MD / Trisha Henderson CNP [facility] Sp[facility] [place] [address] [facility] [address] [place] [address] Phone. [phone] / Fax. [phone] Tomasa Dominguez 02/10/2024 11:07 AM Addendum LVM for patient to return call to schedule genicular RFAs. Anticoag clearance is not required for genicular RFAs. Patient was interested in RFA being scheduled in [place] for the procedures but it appears two procedures are required to be scheduled (left and right) and Dr Alberto is out in March. Procedure dates would be 03/19 and 04/21 in [place] and patient needs a follow up appointment scheduled as well. Tomasa Dominguez Day Treatment Clinician/Art Therapist to Dr. Rome Alberto MD / Trisha Henderson CNP [facility] [place] [address] [facility] [address] [place] [address] Phone. [phone] / Fax. [phone] Shira Arnold 02/11/2024 10:19 AM Signed Patient called in leaving a voicemail stating he was returning Tomasa's call to schedule an appointment in [place]. Shirabasilia DominguezTomasa 02/11/2024 11:25 AM Signed I spoke with patient and scheduled his follow up appointment along with procedures in [place] on 03/19 and 04/21 Tomasa Dominguez Day Treatment Clinician/Art Therapist to Dr. Rome Alberto MD / Trisha Henderson CNP, APRN [facility] [place] [facility] [facility] [address] [place] [address] Phone. [phone] / Fax. [phone] Allergies As of Date: 02/06/2024 (No Known Allergies) Date Reviewed: 02/06/2024 Reviewed by: Trisha Henderson APRN.INDEPENDENT FILM MAKER - Fully Assessed Reason for Visit: Injections [199] Cmt: Questions Prescriptions as of 02/11/2024 - nitroglycerin sublingual (NITROSTAT) 0.4 mg SL tablet Dissolve 1 tablet under the tongue every 5 minutes as needed. - clopidogrel (PLAVIX) 75 mg tablet Take 1 tablet by mouth once daily. - ipratropium 20 mcg-albuterol 100 mcg (COMBIVENT RESPIMAT) 20-100 mcg/actuation inhaler Inhale 1 Puff as instructed four times a day as needed. - zqjcknpgzd-dkxlxrmr-hp rmoterol (BREZTRI AEROSPHERE) 160-9-4.8 mcg/actuation HFA aerosol inhaler Inhale 2 Puffs as instructed two times a day. - lovastatin 40 mg tablet Take 1 tablet by mouth daily at bedtime. For cholesterol. - lisinopril (ZESTRIL) 5 mg tablet Take 1 tablet by mouth once daily. - metoprolol succinate ER (TOPROL XL) 50 mg 24 hr tablet Take 1 tablet by mouth once daily. - aspirin, enteric coated (ASPIRIN, ENTERIC COATED) 81 mg EC tablet Take 1 tablet by mouth once daily. Facility-Administered Medications as of 02/11/2024 - perflutren lipid microspheres 1.3 mL in NaCl (PF) 0.9% 10 mL injection (DEFINITY) - sodium chloride 0.9 % (flush) 10 mL (BD POSIFLUSH) Problem List As Of Date 02/06/2024 Noted Resolved Centrilobular emphysema (HCC) [J43.2] 03/08/2008 SITUS INVERSUS [Q89.3] 03/03/2009 PERCUT TRANSLUM CORON ANGIO STATUS [Z98.61] 03/05/2009 Coronary atherosclerosis [I25.10] 03/22/2009 Diverticulit (more content not included)... Normal [facility] CNPN Telephone (FAMPWS) GABRIEL SANCHEZ ([id number]) 1955 M Date Time Provider Department 02/06/24 [facility] During your visit today, we recorded the following information about you: Sanam Arreola MA 02/06/2024 3:13 PM Signed Type of form: Clearance Forms for right and left genicular RFA's. Form received via fax When form is completed, Fax form to [phone] Form has been forwarded to Physician Desk: Dr. Shaikh. FERCHO Cavazos Kathryn, MA 02/06/2024 3:33 PM Signed Form completed, signed and faxed back. Fannie Candelario MA Allergies As of Date: 02/06/2024 (No Known Allergies) Date Reviewed: 02/06/2024 Reviewed by: Trisha Henderson APRN.[facility] - Fully Assessed Reason for Visit: Forms [313] Cmt: Procedure Clearance Prescriptions as of 02/06/2024 - nitroglycerin sublingual (NITROSTAT) 0.4 mg SL tablet Dissolve 1 tablet under the tongue every 5 minutes as needed. - clopidogrel (PLAVIX) 75 mg tablet Take 1 tablet by mouth once daily. - ipratropium 20 mcg-albuterol 100 mcg (COMBIVENT RESPIMAT) 20-100 mcg/actuation inhaler Inhale 1 Puff as instructed four times a day as needed. - gnjvlmbrsx-ldtrgdny-wt rmoterol (BREZTRI AEROSPHERE) 160-9-4.8 mcg/actuation HFA aerosol inhaler Inhale 2 Puffs as instructed two times a day. - lovastatin 40 mg tablet Take 1 tablet by mouth daily at bedtime. For cholesterol. - lisinopril (ZESTRIL) 5 mg tablet Take 1 tablet by mouth once daily. - metoprolol succinate ER (TOPROL XL) 50 mg 24 hr tablet Take 1 tablet by mouth once daily. - aspirin, enteric coated (ASPIRIN, ENTERIC COATED) 81 mg EC tablet Take 1 tablet by mouth once daily. Facility-Administered Medications as of 02/06/2024 - perflutren lipid microspheres 1.3 mL in NaCl (PF) 0.9% 10 mL injection (DEFINITY) - sodium chloride 0.9 % (flush) 10 mL (BD POSIFLUSH) Problem List As Of Date 02/06/2024 Noted Resolved Centrilobular emphysema (HCC) [J43.2] 03/08/2008 SITUS INVERSUS [Q89.3] 03/03/2009 PERCUT TRANSLUM CORON ANGIO STATUS [Z98.61] 03/05/2009 Coronary atherosclerosis [I25.10] 03/22/2009 Diverticulitis [K57.92] 08/20/2010 Impaired fasting glucose [R73.01] 08/22/2010 Colon cancer [C18.9] 10/31/2010 11/09/2012 Diverticulitis of colon (without mention of hem*10/31/2010 Abdominal pain, left lower quadrant [R10.32] 10/31/2010 03/26/2011 Benign neoplasm of rectum and anal canal [D12.8*10/31/2010 05/23/2015 Malignant neoplasm of colon (HCC) [C18.9] 10/31/2010 06/19/2020 Secondary and unspecified malignant neoplasm of*11/23/2010 06/19/2020 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 04/08/2011 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] 08/22/2011 Thrombocytopenia [D69.6] 09/09/2011 Hx-rectal/anal malign [Z85.048] 12/23/2011 History of colon cancer, stage III [Z85.038] 11/09/2012 Rectal bleeding [K62.5] 09/22/2013 05/23/2015 Bladder wall thickening [N32.89] 11/23/2013 BPH (benign prostatic hyperplasia) [N40.0] 11/23/2013 Tobacco use disorder [F17.200] 11/23/2013 Presence of stent in left circumflex coronary a*08/17/2014 Presence of drug coated stent in right coronary*08/17/2014 SOB (shortness of breath) [R06.02] 11/27/2015 Mixed hyperlipidemia [E78.2] 11/27/2015 Appendicitis [K37] 07/21/2016 12/17/2017 Non morbid obesity due to excess calories [E66.*07/21/2016 Essential hypertension [I10] 11/19/2016 Hypoxemia [R09.02] 06/12/2017 Obesity, Class II, BMI 35-39.9 [E66.9] 12/01/2019 PFO (patent foramen ovale) [Q21.12] 12/20/2020 Elevated glucose [R73.09] 12/20/2020 COPD (chronic obstructive pulmonary disease) (H*03/03/2009 Chronic hypoxemic respiratory failure (HCC) [J9*08/24/2021 TIA (transient ischemic attack) [G45.9] 06/06/2022 S/P placement of cardiac pacemaker [Z95.0] 06/07/2022 Complete heart block (HCC) [I44.2] 06/07/2022 Primary osteoarthritis of both knees [M17.0] 01/30/2024 Encounter Status:Closed by FANNIE CANDELARIO on 02/06/24 [facility] OPERATIVE NOon 01-30-2024 OPERATIVE NO HNO ID: [id number] Author: ROME ALBERTO MD Service: Pain Management Author Type: Physician Type: Operative Report Filed: 01/30/2024 14:13 Note Text: OPERATIVE/PROCEDURE REPORT LOG ID: [id number] SURGERY/PROCEDURE DATE: 01/30/2024 INCISION/PROCEDURE START TIME: 1:39 PM INCISION CLOSE/PROCEDURE END TIME: 1:50 PM SURGEON(S)/PROCEDURALI ST(S) AND BANKING CONSULTANT(S): Surgeon(s) and Role: * Rome Alberto MD - Primary No Additional Staff SURGERY/PROCEDURE(S): genicular nerve blocks, bilateral knees, under fluoroscopic guidance, for painful bilateral knee osteoarthritis Comments: Please schedule RFA (if positive diagnostic) at [place] due to being on 6L O2 continuous NC. ANESTHESIA: Local Injectate: A total of 6cc, consisting of 6cc of 0.75% Bupivacaine. each site receiving equal volumes of this injectate. An additional 5cc of 1% Lidocaine was used for local anesthesia of the soft tissue and at the targeted location. SURGERY/PROCEDURE DETAILS: Procedure: The patient was prepped and draped in a sterile fashion after being placed in the supine position with the knee of interest flexed to 30 degrees, supported beneath by a pillow, after informed consent was signed and all patient questions were answered including the risks, benefits, alternative treatment options, and prognosis. The risks are as mentioned above, with the exception of Pneumothorax. After preliminary films were obtained and after skin preparation, a 25 gauge needle was used to anesthetize the skin with 3-5 cc of 1% Lidocaine. A 25 gauge, 3.5 inch spinal needle was inserted in a superior direction with fluoroscopic guidance to contact the bone at the junction of the respective bony structure (medial or lateral femoral condyle and femoral shaft, medial tibial flare and tibial shaft). Needle position was then confirmed in multiple views. 1-2cc's of Omnipaque 300 was injected, outlining the location of the superomedial, superolateral, inferomedial branches and confirming lack of vascular flow. The medication noted above was then injected at each site. Appropriate radiographs were obtained with results as described above. PRE-OP/PRE-PROCEDURE DIAGNOSIS: Knee osteoarthritis POST-OP/POST-PROCEDURE DIAGNOSIS: Same as Preop ESTIMATED BLOOD LOSS: 0 ml SPECIMENS: None IMPLANTABLE DEVICES: NONE DRAINS: None COMPLICATIONS: None CLOSURE TECHNIQUE: Primary PARTICIPATION IN SURGERY/PROCEDURE: I/primary surgeon/proceduralist performed the entire procedure. SIGNATURE: Rome Alberto MD PATIENT NAME: Gabriel Sanchez DATE: 01/30/2024 TIME: 1:56 PM [facility] No Panel Informationon 01-20 BLANK _ [facility] Implant Date 06/06/2022 [facility] Model [id number] [facility] CHECKon AMS Fallback Rate (bpm) 70 {beats}/min [facility] AV Delay Adaptive Paced Minimum (ms) 200 ms [facility] AV Delay Adaptive Rate Maximum (bpm) 130 {beats}/min [facility] AV Delay Adaptive Rate Minimum (bpm) 90 {beats}/min [facility] AV Delay Adaptive Sensed Minimum (ms) 150 ms [facility] AV Delay Adaptive Status DISABLED [facility] Battery Voltage (volts) 3.01 V [facility] Emerson RA Pacing Amplitude (volts) 2.0 V [facility] Emerson RA Pacing Polarity BI [facility] Emerson RA Pacing Pulse Width (ms) 0.5 ms [facility] Emerson RA Sensing Blanking Period (ms) 150 ms [facility] Emerson RA Sensing Polarity BI [facility] Emerson RA Sensing Refractory Period (ms) 190 ms [facility] Emerson RV Pacing Amplitude (volts) 1.0 V [facility] Emerson RV Pacing Polarity BI [facility] Emerson RV Pacing Pulse Width (ms) 0.5 ms [facility] Emerson RV Sensing Amplitude (mvolts) 2.0 mV [facility] Emerson RV Sensing Blanking Period (ms) 44 ms [facility] Emerson RV Sensing Polarity BI [facility] Emerson RV Sensing Refractory Period (ms) 250 ms [facility] Hysteresis Rate (bpm) Off [facility] Lead1 [facility] [employer] [facility] Lead2 [facility] [employer] [facility] Location RA [facility] Location RV [facility] Lower Rate (bpm) 60 {beats}/min [facility] Max Sensor Rate (bmp) 130 {beats}/min [facility] Model 2272 Assurity MRI [facility] Pacemaker Dependent? INTERMITTENT Cl [facility] Pacing Mode DDDR [facility] PM-Device Mfg STJ [facility] PM-Percent Pacing (A) 18.0 % [facility] PM-Percent Pacing (V) 96.0 % [facility] PM-PMT Intervention Atrial Pace [facility] PM-PVC Intervention Atrial Pace [facility] PM-Rate Modulation Acceleration Reaction Fast [facility] PM-Rate Modulation Deceleration Medium [facility] PM-Rate Modulation [place] Auto (+0) [facility] PM-Rate Modulation Threshold Auto (+0.0) [facility] Rhythm CHB with irregular intermittent R waves @ VVI 35 [facility] Serial Number [id number] [facility] Serial Number [id number] [facility] Serial Number [id number] [facility] Thresh RA Capture Amplitude (volts) 0.5 V [facility] Thresh RA Capture Duration (ms) 0.5 ms [facility] Thresh RA Sensing Amplitude (mvolts) 5.0 mV [facility] Thresh RV Capture Amplitude (volts) 0.75 V [facility] Thresh RV Capture Duration (ms) 0.5 ms [facility] Thresh RV Sensing Amplitude (mvolts) 7.5 mV [facility] Tracking Rate (bpm) 130 {beats}/min [facility] CNCOon 01-20-2024 CNCO Letter Text [facility] HISTORY PHYSICALon HISTORY PHYSICAL HNO ID: [id number] Author: ROME ALBERTO MD Service: Pain Management Author Type: Physician Type: H&P Filed: 01/30/2024 13:17 Note Text: LOCAL PROCEDURE HISTORY AND PHYSICAL EXAM SERVICE DATE: 01/30/2024 SERVICE TIME: 1:17 PM Provisional Diagnosis/Treatment Plan: genicular nerve blocks, bilateral knees, under fluoroscopic guidance, for painful bilateral knee osteoarthritis Subjective Prior to Admission medications as of 01/30/24 1317 Medication Sig Last Dose Taking nitroglycerin sublingual (NITROSTAT) 0.4 mg SL tablet Dissolve 1 tablet under the tongue every 5 minutes as needed. Unknown Yes clopidogrel (PLAVIX) 75 mg tablet Take 1 tablet by mouth once daily. 01/29/2024 Yes ipratropium 20 mcg-albuterol 100 mcg (COMBIVENT RESPIMAT) 20-100 mcg/actuation inhaler Inhale 1 Puff as instructed four times a day as needed. 01/30/2024 Yes qfucoucrbl-lkdlgrpj-pi rmoterol (BREZTRI AEROSPHERE) 160-9-4.8 mcg/actuation HFA aerosol inhaler Inhale 2 Puffs as instructed two times a day. 01/29/2024 Yes lovastatin 40 mg tablet Take 1 tablet by mouth daily at bedtime. For cholesterol. 01/29/2024 Yes lisinopril (ZESTRIL) 5 mg tablet Take 1 tablet by mouth once daily. 01/29/2024 Yes metoprolol succinate ER (TOPROL XL) 50 mg 24 hr tablet Take 1 tablet by mouth once daily. 01/29/2024 Yes aspirin, enteric coated (ASPIRIN, ENTERIC COATED) 81 mg EC tablet Take 1 tablet by mouth once daily. 01/29/2024 Yes ALLERGIES No Known Allergies Objective PHYSICAL EXAM: The remainder of the physical exam is noncontributory. GENERAL: Alert, no distress, cooperative LUNGS: Lungs clear to auscultation, Good diaphragmatic excursion CARDIAC: Normal S1 and S2; no rubs, murmurs, or gallops NEURO: Gait normal. Reflexes normal and symmetric. Sensation grossly intact BP 132/91 Pulse 79 Temp 36.6 ?C (97.9 ?F) (Temporal) Resp 24 Ht 172.7 cm (5' 8 ) Wt 108 kg (238 lb) SpO2 96% BMI 36.19 kg/m? PAIN ASSESSMENT: PAIN EVALUATION 01/30/2024 1308 Pain Level: 0 Assessment/Plan Assessment/Plan genicular nerve blocks, bilateral knees, under fluoroscopic guidance, for painful bilateral knee osteoarthritis Medication and Non-Pharmacologic VTE Prophylaxis/Anticoagul ants VTE Prophylaxis: VTE prophylaxis appropriate SIGNATURE: Rome Alberto MD PATIENT NAME: Gabriel Sanchez Date: 01/30/2024 Time: 1:17 PM [facility] CNOVon 01-01-2024 CNOV Office Visit (SPAGWO ) SANCHEZGABRIEL Mckeon ([id number]) 1955 M Date Time Provider Department 01/01/24 10:00 AM ROME ALBERTO SPAGWO During your visit today, we recorded the following information about you: Pulse Respiration 74/minute 20/minute Rome Alberto MD 01/01/2024 10:46 AM Addendum [facility] Today's Date: 12/31/2023 Name: Gabriel Sanchez : 1955 Purpose: New Patient Consultation Chief complaint: Bilateral knee pain (right > left) Referring Clinician: Sukhi Borjas MD Pertinent Past Medical History: Ulnar nerve neuropathy, Presence of drug coated stent in right coronary artery, HLD, HTN, S/P placement of cardiac pacemaker, COPD, Tobacco use disorder, History of colon cancer, stage III, TIA, Obesity, Hx-rectal/anal malign, Pertinent Past Surgeries: none History of Present Illness (HPI): 12/31/2023 - Initial HPI (Obtained by Rome Alberto M.D.) - consulted by Ortho for possible Geniculate Ablation/Block DURATION AND ONSET: The pain complaint has been present for approximately many years. The pain had a gradual onset. He reports that there have been discussions that his cartilage might have been damaged by chemotherapy. He is on O2 for COPD. He saw Dr. Borjas in Ortho, who advised non-operative management. RED FLAG SYMPTOMS: denies red flags. PAIN DESCRIPTION: Timing: Constant Character: Aching Primary Location: bilateral knees, right > left Radiation: none Exacerbating factors: Standing, Walking Relieving factors: Sitting, Lying Down Interferes with: physical activity Current Pain Medications: Neuropathics: NSAIDS: Muscle Relaxants: Topicals: Other Prescription or OTC Pain Medications: Asa 81mg Opioids (when applicable): Anti-depressants or Mood-Stabilizers: None Anti-Coagulants: Plavix 75mg Therapies Attended (Current or Most Recent): No Current Therapies No data to display No question data found. (All drug screens are appropriate unless indicated otherwise) Treatment History: PAIN PROCEDURES: DATE PROCEDURE IMPROVEMENT To date, no interventional pain management procedures performed at this practice. MEDICATIONS Taken TO DATE (for the chief complaint(s)): Neuropathics: None NSAIDS: None Muscle Relaxants: None Topicals: None Other Prescription or OTC Pain Medications: Tylenol (Acetaminophen), Aspirin Opioids: Oxycodone (eg Percocet) Compliance: PDMP website checked and validated on 12/31/2023 by Rome Alberto MD All prescriptions have been APPROPRIATELY filled. No suspicious activity was identified. No data to display (All drug screens are appropriate unless indicated otherwise) Risk Assessment: SILVANO-7: No data to display (0-4) minimal anxiety, (5-9) mild anxiety, (10-14) moderate anxiety, (15-21) severe anxiety PHQ-9: 02/11/2022 06/19/2011 PHQ-9 Score 0 1 (0-4) minimal depression, (5-9) mild depression, (10-14) moderate depression, (15-19) moderately severe depression, (20-27) severe depression Opioid Risk Tool: Family History of Substance Abuse: 0 - No Personal History of Substance Abuse: 0 - No Age between 16-45: 0 - No History of Pre-Adolescence Sexual Abuse: 0 - No Psychological Disease: 0 - No Risk Total: 0 (0-3, low risk or no risk; 4-7, moderate risk, 8+, high risk) Diagnostic Studies: Relevant Imaging: MRI Spine Report No resulted procedures found. X-ray Bilat. Knee 11/2023 RESULT: Tricompartmental osteoarthritis, severe in the medial compartments with peoz-cl-oecz contact, slightly worsened compared to 08/26/2019. Bilateral genu varus and mild lateral tibial translation. Small bilateral joint effusions. No fracture. IMPRESSION: Severe medial compartment predominant osteoarthritis in both knees slightly worse compared to 08/26/2019. X-ray Bilat. Knee 08/2019 RESULT: Severe medial compartment joint space narrowing bilaterally. Seuk-wq-dxvi contact medially on the right. Subchondral sclerosis, osteophytes around the knee joints. Lateral translation tibia in relation to femur bilaterally worse on the right. Minimal genu varus bilaterally. Mild narrowing of patellofemoral joint laterally on the right. Left patellofemoral joint is maintained. Osteophytes at the patellofemoral joint bilaterally. No joint effusion. No fracture. IMPRESSION: DEGENERATIVE JOINT DISEASE MOST SEVERE IN THE MEDIAL COMPARTMENT BILATERALLY AND PROGRESSED BILATERALLY SINCE THE PREVIOUS EXAM. Electrodiagnostic Study (EMG): None Recent Labs: Creatinine Date Value Ref Range Status 03/24/2023 1.12 0.73 - 1.22 mg/dL Final No results found for: EGFR Glucose, Point of Care D (more content not included)... [facility] Roberto 01-01-2024 CNPN Telephone (SPAGWO) GABRIEL SANCHEZ ([id number]) 1955 M Date Time Provider Department 01/01/24 ROME ALBERTO SPAGWO During your visit today, we recorded the following information about you: Tomasa Dominguez 01/01/2024 10:53 AM Signed Procedure(s) being scheduled: Genicular Nerve Block (Superior Medial, Inferior Medial, Superior Lateral - Diagnostic only, NO steroids) under fluoroscopic guidance BILATERAL SIDES 1.Are you diabetic No 2. Are you on any blood thinners? Yes. Please list the current medications being prescribed Plavix. If yes, does it require a hold? No If yes, was approval letter sent? No 3. Are you taking any aspirin? Yes. Please list the current medications being prescribed baby aspril. 4. Are you currently taking any antibiotics? No If yes, is it prophylactic or for treatment of an infection? N/A 5. Do you have any allergies to latex? No 6. Do you have any allergies to seafood or shellfish? No 7. Do you have any allergies to x-ray dye? No 8. Did the physician instruct you to take any medication prior to your procedure? No 9. Does this procedure require a drop hammer pile driver operator? Yes If yes, has patient been notified that a drop hammer pile driver operator is needed and must be present at check in? Yes 10. Were the pre-procedure instructions explained and provided to the patient? Yes 11. Do you have a pacemaker? Yes 12. Do you have an internal stimulator of any kind? No If yes, please bring the remote with you to your procedure visit. 13. Have you received the COVID-19 Vaccine? No. If yes, date(s) received: N/A (Patient should not receive a procedure including steroids 14 days prior to their first dose of the COVID vaccine. They should not receive any procedure containing steroids in the time frame between their 1st and 2nd doses of the COVID vaccine. They should not receive a procedure containing steroids 14 days after their 2nd dose of the COVID vaccine.) Tomasa Romo 01/01/2024 10:56 AM Signed Upon asking pre-procedure questions, patient asked if he was able to use THC cream on knees (patient was unsure of name brand but believed it was a hemp cream used for Arthritis?) and if oxygen would be ready for patient when he came into [place]. Routed to Dr Alberto to advise Rome Kaur MD 01/01/2024 11:30 AM Signed He can use THC cream on his knees, but not on the day of the procedures. O2 will be made available in the OR, but he should have enough for the ride to/from the hospital with at least an hour to spare in case there are delays bringing him to/from the OR. When the OR staff calls him to schedule, he can clarify his needs with them. Rome Alberto III, MD, Tomasa Lyn 01/01/2024 12:58 PM Signed LVM to advise patient of message from Tomasa Orantes 01/02/2024 11:23 AM Signed LVM to advise patient of message from Jane Juarez 01/19/2024 4:35 PM Signed LVM to advise pt of message from Dr. Alberto. Josef Toure 01/20/2024 8:11 AM Signed Since we've attempted to call the patient multiple times, I sent Dr. Alberto's message to him via [employer] this morning. Josef Conner Allergies As of Date: 01/01/2024 (No Known Allergies) Date Reviewed: 01/01/2024 Reviewed by: Nancy Dougherty LPN - Fully Assessed Reason for Visit: Injection Questions [Other] Patient Question [1477] Prescriptions as of 01/20/2024 - nitroglycerin sublingual (NITROSTAT) 0.4 mg SL tablet Dissolve 1 tablet under the tongue every 5 minutes as needed. - clopidogrel (PLAVIX) 75 mg tablet Take 1 tablet by mouth once daily. - ipratropium 20 mcg-albuterol 100 mcg (COMBIVENT RESPIMAT) 20-100 mcg/actuation inhaler Inhale 1 Puff as instructed four times a day as needed. - cuaawutrib-scsgyjjj-np rmoterol (BREZTRI AEROSPHERE) 160-9-4.8 mcg/actuation HFA aerosol inhaler Inhale 2 Puffs as instructed two times a day. - lovastatin 40 mg tablet Take 1 tablet by mouth daily at bedtime. For cholesterol. - lisinopril (ZESTRIL) 5 mg tablet Take 1 tablet by mouth once daily. - metoprolol succinate ER (TOPROL XL) 50 mg 24 hr tablet Take 1 tablet by mouth once daily. - aspirin, enteric coated (ASPIRIN, ENTERIC COATED) 81 mg EC tablet Take 1 tablet by mouth once daily. Facility-Administered Medications as of 01/20/2024 - perflutren lipid microspheres 1.3 mL in NaCl (PF) 0.9% 10 mL injection (DEFINITY) - sodium chloride 0.9 % (flush) 10 mL (BD POSIFLUSH) Problem List As Of Date 01/01/2024 Noted Resolved Centrilobular emphysema (HCC) [J43.2] 03/08/2008 SITUS INVERSUS [Q89.3] 03/03/2009 PERCUT TRANSLUM CORON ANGIO STATUS [Z98.61] 03/05/2009 Coronary atherosclerosis [I25.10] 03/22/2009 Diverticulitis [K57.92] 08/20/2010 Impaired fasting glucose [R73.01] 08/22/2010 Colon cancer [C18.9] 10/31/2010 11/09/2012 Diverticulitis of colon (without mention of hem*01/ (more content not included)... [facility] CNOVon 12-01-2023 CNOV Office Visit (ORTHWS ) GABRIEL SANCHEZ ([id number]) 1955 M Date Time Provider Department 12/01/23 3:30 PM SUKHI BORJAS During your visit today, we recorded the following information about you: Sukhi Borjas MD 12/20/2023 12:17 AM Signed Sukhi Borjas MD Department of Orthopaedics [facility] [address] [facility] [address] Dept: [phone] Dept December 01, 2023 CHIEF COMPLAINT: New of the Right Knee (Bilateral knee pain/Xray 12/01/2023/Last seen 09/05/19 OA bilateral knees) and New of the Left Knee HPI: Patient is here for bilateral knee pain. States this has been going on for some time. He was told he was not a surgical candidate but hopes that something has changed and there will be something new that might help that is non-surgical. Patient is oxygen dependent. He is retired. ASSESSMENT: M25.561, M25.562, G89.29 Chronic pain of both knees (primary encounter diagnosis) M17.0 Primary osteoarthritis of both knees PLAN: We'll try to get him in to Pain for possible geniculate ablation FOLLOW UP INSTRUCTIONS: As needed. Mr. Gabriel Sanchez was advised as to contrast therapies and/or to take analgesics/anti-inflam matories as needed and all contraindications were reviewed. OBJECTIVE: Mr. Gabriel Sanchez is a pleasant 68 year old in no apparent distress. Gen:There were no vitals taken for this visit. nl development, obese, no deformities ENT: Normocephalic, normal hearing, moist mucosa CV: Pulses:DP/PT= 2+ and symmetric, capillary refill < 2 secs, no peripheral edema/varicosities Skin: no rash, bruising or lesions. Good turgor. Psych: cooperative and appropriate, alert and oriented x 3, good mood and affect. Musculoskeletal: 10-115 bilaterally with fixed varus of each knee. Mild PF crepitus. IMAGING: IMPRESSION: Severe medial compartment predominant osteoarthritis in both knees slightly worse compared to 08/26/2019. Meat Molder: RAYSHAWN Transcribe Date/Time: Dec 02 2023 3:40P Dictated by : DARIAN ANGULO, DO This examination was interpreted and the report reviewed and electronically signed by: DARIAN ANGULO DO on Dec 02 2023 3:43PM EST Results-Findings * * *Final Report* * * DATE OF EXAM: Dec 01 2023 3:56PM WRX [id number] - XR KNEE 4V AP/PA/LAT/MERCH BERNADETTE / PROCEDURE REASON: multiple diagnoses * * * * Physician Interpretation * * * * EXAMINATION: XR KNEE 4V AP/PA/LAT/MERCH BERNADETTE PATIENT/TECHNOLOGIST PROVIDED HISTORY: Chronic bilateral knee pain CLINICAL INFORMATION: 68 years old Male with Pain in both knees, unspecified chronicity TECHNIQUE: XR KNEE 4V AP/PA/LAT/MERCH BERNADETTE Laterality: BILATERAL Number of different views (projections): 4 views of each knee COMPARISON: Radiographs 08/26/2019 RESULT: Tricompartmental osteoarthritis, severe in the medial compartments with wqfq-rx-aigo contact, slightly worsened compared to 08/26/2019. Bilateral genu varus and mild lateral tibial translation. Small bilateral joint effusions. No fracture. Supporting Subjective Information Below: Past Medical History: PAST MEDICAL HISTORY Diagnosis Date Abdominal pain, left lower quadrant Acute myocardial infarction of other specified sites, episode of care unspecified 2003 Myocardial Infarction Asthma Benign neoplasm of rectum and anal canal Chronic hypoxemic respiratory failure (HCC) 08/24/2021 Colon cancer ([facility]) 10/20/2010 COPD (chronic obstructive pulmonary disease) ([facility]) [address] Alfonso Coronary artery disease [...] septal leads with Dr. Tracy on 06/06/2022. Past Surgical History: PAST SURGICAL HISTORY Procedure Laterality Date CARDIAC [...] CTR VAD W/SUBQ PORT AGE 3 YR/> 11/20 (more content not included)... Normal [facility] XR KNEE 4V AP/PA/LAT/MERCH B ILon 12-01-2023 XR KNEE 4V AP/PA/LAT/MERCH BERNADETTE * * *Final Report* * * DATE OF EXAM: Dec 01 2023 3:56PM WRX [id number] - XR KNEE 4V AP/PA/LAT/MERCH BERNADETTE / PROCEDURE REASON: multiple diagnoses * * * * Physician Interpretation * * * * EXAMINATION: XR KNEE 4V AP/PA/LAT/MERCH BERNADETTE PATIENT/TECHNOLOGIST PROVIDED HISTORY: Chronic bilateral knee pain CLINICAL INFORMATION: 68 years old Male with Pain in both knees, unspecified chronicity TECHNIQUE: XR KNEE 4V AP/PA/LAT/MERCH BERNADETTE Laterality: BILATERAL Number of different views (projections): 4 views of each knee COMPARISON: Radiographs 08/26/2019 RESULT: Tricompartmental osteoarthritis, severe in the medial compartments with veur-iu-pvlk contact, slightly worsened compared to 08/26/2019. Bilateral genu varus and mild lateral tibial translation. Small bilateral joint effusions. No fracture. IMPRESSION: Severe medial compartment predominant osteoarthritis in both knees slightly worse compared to 08/26/2019. Meat Molder: PSCB Transcribe Date/Time: Dec 02 2023 3:40P Dictated by : DARIAN ANGULO DO This examination was interpreted and the report reviewed and electronically signed by: DARIAN ANGULO DO on Dec 02 2023 3:43PM EST [id number] Normal [facility] CNPNon 11-27-2023 CNPN Telephone ([employer]) GABRIEL SANCHEZ ([id number]) 1955 M Date Time Provider Department 11/27/23 SUKHI BORJAS During your visit today, we recorded the following information about you: Diana Carter, LIV 11/27/2023 10:17 AM Signed Left a message for the patient to call the office back. Need to know which knee is causing him pain. Thank you. Diana Carter RN 11/28/2023 1:12 PM Signed Attempted to call the patient again. No answer. Left voicemail requesting call back. Allergies As of Date: 11/27/2023 (No Known Allergies) Date Reviewed: 11/26/2023 Reviewed by: Amalia Pritchard PA-C - Fully Assessed Reason for Visit: Chart Prep [Other] Prescriptions as of 12/01/2023 - pcjikeumxf-wkuvdhtx-za rmoterol (BREZTRI AEROSPHERE) 160-9-4.8 mcg/actuation HFA aerosol inhaler Inhale 2 Puffs as instructed two times a day. - ipratropium 20 mcg-albuterol 100 mcg (COMBIVENT RESPIMAT) 20-100 mcg/actuation inhaler Inhale 1 Puff as instructed four times a day as needed. - clopidogrel (PLAVIX) 75 mg tablet Take 1 tablet by mouth once daily. - metoprolol succinate ER (TOPROL XL) 50 mg 24 hr tablet Take 1 tablet by mouth once daily. - lovastatin 40 mg tablet Take 1 tablet by mouth daily at bedtime. For cholesterol. - lisinopril (ZESTRIL, PRINIVIL) 5 mg tablet Take 1 tablet by mouth once daily. - nitroglycerin sublingual (NITROSTAT) 0.4 mg SL tablet Dissolve 1 tablet under the tongue every 5 minutes as needed. - aspirin, enteric coated (ASPIRIN, ENTERIC COATED) 81 mg EC tablet Take 1 tablet by mouth once daily. Facility-Administered Medications as of 12/01/2023 - perflutren lipid microspheres 1.3 mL in NaCl (PF) 0.9% 10 mL injection (DEFINITY) - sodium chloride 0.9 % (flush) 10 mL (BD POSIFLUSH) Problem List As Of Date 11/27/2023 Noted Resolved Centrilobular emphysema (HCC) [J43.2] 03/08/2008 SITUS INVERSUS [Q89.3] 03/03/2009 PERCUT TRANSLUM CORON ANGIO STATUS [Z98.61] 03/05/2009 Coronary atherosclerosis [I25.10] 03/22/2009 Diverticulitis [K57.92] 08/20/2010 Impaired fasting glucose [R73.01] 08/22/2010 Colon cancer [C18.9] 10/31/2010 11/09/2012 Diverticulitis of colon (without mention of hem*10/31/2010 Abdominal pain, left lower quadrant [R10.32] 10/31/2010 03/26/2011 Benign neoplasm of rectum and anal canal [D12.8*10/31/2010 05/23/2015 Malignant neoplasm of colon (HCC) [C18.9] 10/31/2010 06/19/2020 Secondary and unspecified malignant neoplasm of*11/23/2010 06/19/2020 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 04/08/2011 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] 08/22/2011 Thrombocytopenia [D69.6] 09/09/2011 Hx-rectal/anal malign [Z85.048] 12/23/2011 History of colon cancer, stage III [Z85.038] 11/09/2012 Rectal bleeding [K62.5] 09/22/2013 05/23/2015 Bladder wall thickening [N32.89] 11/23/2013 BPH (benign prostatic hyperplasia) [N40.0] 11/23/2013 Tobacco use disorder [F17.200] 11/23/2013 Presence of stent in left circumflex coronary a*08/17/2014 Presence of drug coated stent in right coronary*08/17/2014 SOB (shortness of breath) [R06.02] 11/27/2015 Mixed hyperlipidemia [E78.2] 11/27/2015 Appendicitis [K37] 07/21/2016 12/17/2017 Non morbid obesity due to excess calories [E66.*07/21/2016 Essential hypertension [I10] 11/19/2016 Hypoxemia [R09.02] 06/12/2017 Obesity, Class II, BMI 35-39.9 [E66.9] 12/01/2019 PFO (patent foramen ovale) [Q21.12] 12/20/2020 Elevated glucose [R73.09] 12/20/2020 COPD (chronic obstructive pulmonary disease) (H*03/03/2009 Chronic hypoxemic respiratory failure (HCC) [J9*08/24/2021 TIA (transient ischemic attack) [G45.9] 06/06/2022 S/P placement of cardiac pacemaker [Z95.0] 06/07/2022 Complete heart block (HCC) [I44.2] 06/07/2022 Encounter Status:Closed by ZORA SIEGEL MA on 12/01/23 [facility] CNOVon 11-26-2023 CNOV Office Visit (PULMWS ) SANCHEZGABRIEL Mckeon ([id number]) 1955 M Date Time Provider Department 11/26/23 3:00 PM AMALIA PRITCHARD PULMWS During your visit today, we recorded the following information about you: Pulse Respiration Blood pressure Weight 114/minute 17/minute 112/68 108 kg Amalia Pritchard PA-C 11/26/2023 4:32 PM Signed Patient: Gabriel Sanchez PCP: Radha Shaikh MD CC: follow up HPI: Gabriel Sanchez 68 year old obese male former approximately 70 pack year smoker, quitting in 2015 with PMH significant for moderate COPD (FEV1 52%), chronic hypoxemic respiratory failure, CHB s/p PPM, CAD, dextrocardia/malrotati on, HLD, СВЕТЛАНА non-compliant with CPAP, and colon cancer 2010. Current therapy with Combivent 4 times daily. He was previously on triple therapy Breztri but stopped because it did not make a difference in his symptoms. At last office visit, he was willing to try it again, however, it was too expensive. Dona Lozoya, social work professor, attempted to contact patient to check on prescription assistance, but she was unable to reach him. Today, patient reports variable cough with white phlegm. Does not cough daily. No hemoptysis. Frequent wheezing. Exertional dyspnea with minimal effort. Taking Mucinex daily as well as using his Combivent frequently stating, I try to make it last the whole month . No lower extremity edema. Currently wearing 4-6 L supplemental oxygen. Patient states he is not sleeping well and wakes up feeling tired. He had a sleep study, years ago , at [facility]. DME: [employer] PAST MEDICAL HISTORY Diagnosis Date Abdominal pain, left lower quadrant Acute myocardial infarction of other specified sites, episode of care unspecified 2003 Myocardial Infarction Asthma Benign neoplasm of rectum and anal canal Chronic hypoxemic respiratory failure (HCC) 08/24/2021 Colon cancer ([facility]) 10/20/2010 COPD (chronic obstructive pulmonary disease) ([facility]) [address] Alfonso Coronary artery disease [...] inhalerInhale 1 Puff as instructed four times a day as needed.Disp: 1 EachRfl: 5 fnpenlhkmp-baeuoekr-uw rmoterol (BREZTRI) 160-9-4.8 mcg/actuation HFA aerosol inhalerInhale 2 Puffs as instructed two times a day.Disp: 3 EachRfl: 3 clopidogrel (PLAVIX) 75 mg tabletTake 1 tablet [...] date: 06/13/1971 Quit date: 06/24/2016 Years since quittin.4 Smokeless tobacco: Never Tobacco comments: Parent's non smokers. Spouse smokes in home. 12/14/2015 Currently use vape Vaping Use Vaping Use: Former Substances: Flavoring, States no tobacco in the device but tastes like tobacco Devices: Pre-filled or refillable cartridge, Refillable tank Substance Use Topics Alcohol use: No Drug use: Not Currently Types: Marijuana Family History Problem Relation Age of Onset Heart Mother IA other (chf) Mother Heart Father IA Heart disease Brother Heart disease Brother Heart Brother IA Heart Brother IA other (heart murmur) Daughter other (CTS) No Family History PAST SURGICAL HISTORY Procedure Laterality Date CARDIAC CATH N/A 08/14/2018 Cardiac Cath/Stent placement COLON SURGERY HX COLONOSCOPY 09/30/2013 clean anastamosis, nodule at 35cm and 15 cm COLONOSCOPY FLX DX W/COLLJ SPEC WHEN PFRMD 01/30/2018 Colonosc (more content not included)... Normal [facility] CNOVon 09-09-2023 CNOV Office Visit (FAMPWS ) GABRIEL SANCHEZ ([id number]) 1955 M Date Time Provider Department 09/09/23 3:00 PM RADHA SHAIKH During your visit today, we recorded the following information about you: Pulse Respiration Blood pressure Weight 88/minute 18/minute 114/80 110.3 kg Radha Shaikh MD 09/09/2023 4:33 PM Signed Chief Complaint Patient presents with: F/U 6 [...] states that he has a f/u with [facility] next week, so hoping to [...] (HCC) 10/20/2010 COPD (chronic obstructive pulmonary disease) ([facility]) [address] Alfonso Coronary artery disease [...] TRANSL COR ANGIO 2003, 2006, 2009 Percutaneous Tr (more content not included)... Normal [facility] CNPNon 09-09-2023 CNPN Telephone (FAMWS) GABRIEL SANCHEZ ([id number]) 1955 M Date Time Provider Department 09/09/23 [facility] During your visit today, we recorded the following information about you: Sanam Arreola Ma 09/09/2023 3:28 PM Addendum Pt in PCP office today stating that [facility] is stating that they need a new prescription for his oxygen since his O2 use has been increased at his previous OV. Per patient he states this is what [facility] has told him. Pt states he is now using 6 L. Can you please forward this information onto [facility]. Pt states the smaller tanks he uses at the higher 6 L only lasts him an hour. Unsure if he can get a bigger tank. Amalia Nunez Ma, PA-C 09/10/2023 9:05 AM Signed Order sent to [facility] via [employer]. [facility] Allergies As of Date: 09/09/2023 (No Known Allergies) Date Reviewed: 09/09/2023 Reviewed by: Sanam Arreola Ma - Fully Assessed Reason for Visit: Prescription Refills [1772] Cmt: Oxygen Prescriptions as of 09/10/2023 - ipratropium 20 mcg-albuterol 100 mcg (COMBIVENT RESPIMAT) 20-100 mcg/actuation inhaler Inhale 1 Puff as instructed four times a day as needed. - upwlvkbdnd-xmgjphbe-ht rmoterol (BREZTRI) 160-9-4.8 mcg/actuation HFA aerosol inhaler Inhale 2 Puffs as instructed two times a day. - clopidogrel (PLAVIX) 75 mg tablet Take 1 tablet by mouth once daily. - metoprolol succinate ER (TOPROL XL) 50 mg 24 hr tablet Take 1 tablet by mouth once daily. - lovastatin 40 mg tablet Take 1 tablet by mouth daily at bedtime. For cholesterol. - lisinopril (ZESTRIL, PRINIVIL) 5 mg tablet Take 1 tablet by mouth once daily. - nitroglycerin sublingual (NITROSTAT) 0.4 mg SL tablet Dissolve 1 tablet under the tongue every 5 minutes as needed. - aspirin, enteric coated (ASPIRIN, ENTERIC COATED) 81 mg EC tablet Take 1 tablet by mouth once daily. Facility-Administered Medications as of 09/10/2023 - perflutren lipid microspheres 1.3 mL in NaCl (PF) 0.9% 10 mL injection (DEFINITY) - sodium chloride 0.9 % (flush) 10 mL (BD POSIFLUSH) Problem List As Of Date 09/09/2023 Noted Resolved Centrilobular emphysema (HCC) [J43.2] 03/08/2008 SITUS INVERSUS [Q89.3] 03/03/2009 PERCUT TRANSLUM CORON ANGIO STATUS [Z98.61] 03/05/2009 Coronary atherosclerosis [I25.10] 03/22/2009 Diverticulitis [K57.92] 08/20/2010 Impaired fasting glucose [R73.01] 08/22/2010 Colon cancer [C18.9] 10/31/2010 11/09/2012 Diverticulitis of colon (without mention of hem*10/31/2010 Abdominal pain, left lower quadrant [R10.32] 10/31/2010 03/26/2011 Benign neoplasm of rectum and anal canal [D12.8*10/31/2010 05/23/2015 Malignant neoplasm of colon (HCC) [C18.9] 10/31/2010 06/19/2020 Secondary and unspecified malignant neoplasm of*11/23/2010 06/19/2020 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 04/08/2011 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] 08/22/2011 Thrombocytopenia [D69.6] 09/09/2011 Hx-rectal/anal malign [Z85.048] 12/23/2011 History of colon cancer, stage III [Z85.038] 11/09/2012 Rectal bleeding [K62.5] 09/22/2013 05/23/2015 Bladder wall thickening [N32.89] 11/23/2013 BPH (benign prostatic hyperplasia) [N40.0] 11/23/2013 Tobacco use disorder [F17.200] 11/23/2013 Presence of stent in left circumflex coronary a*08/17/2014 Presence of drug coated stent in right coronary*08/17/2014 SOB (shortness of breath) [R06.02] 11/27/2015 Mixed hyperlipidemia [E78.2] 11/27/2015 Appendicitis [K37] 07/21/2016 12/17/2017 Non morbid obesity due to excess calories [E66.*07/21/2016 Essential hypertension [I10] 11/19/2016 Hypoxemia [R09.02] 06/12/2017 Obesity, Class II, BMI 35-39.9 [E66.9] 12/01/2019 PFO (patent foramen ovale) [Q21.12] 12/20/2020 Elevated glucose [R73.09] 12/20/2020 COPD (chronic obstructive pulmonary disease) (H*03/03/2009 Chronic hypoxemic respiratory failure (HCC) [J9*08/24/2021 TIA (transient ischemic attack) [G45.9] 06/06/2022 S/P placement of cardiac pacemaker [Z95.0] 06/07/2022 Complete heart block (HCC) [I44.2] 06/07/2022 Encounter Status:Closed by AMALIA PRITCHARD on 09/10/23 [facility] Roberto 08-29-2023 FLEX Telephone (NAVWST) SOURAVGABRIEL ([id number]) 1955 M Date Time Provider Department 08/29/23 DONA LOZOYA During your visit today, we recorded the following information about you: Dona Lozoya, [facility] 08/29/2023 11:33 AM Signed Sw left patient message requesting call back to discuss breztri-[employer] PAP forms. Dona Lozoya, [facility] 09/02/2023 10:21 AM Signed Sw left 2nd message for call to be returned to discuss patient assistance for breztri inhaler. Allergies As of Date: 08/29/2023 (No Known Allergies) Date Reviewed: 08/28/2023 Reviewed by: Amalia Pritchard PA-C - Fully Assessed Prescriptions as of 09/04/2023 - ipratropium 20 mcg-albuterol 100 mcg (COMBIVENT RESPIMAT) 20-100 mcg/actuation inhaler Inhale 1 Puff as instructed four times a day as needed. - bpbxjfxlck-blukoezd-lb rmoterol (BREZTRI) 160-9-4.8 mcg/actuation HFA aerosol inhaler Inhale 2 Puffs as instructed two times a day. - clopidogrel (PLAVIX) 75 mg tablet Take 1 tablet by mouth once daily. - metoprolol succinate ER (TOPROL XL) 50 mg 24 hr tablet Take 1 tablet by mouth once daily. - lovastatin 40 mg tablet Take 1 tablet by mouth daily at bedtime. For cholesterol. - lisinopril (ZESTRIL, PRINIVIL) 5 mg tablet Take 1 tablet by mouth once daily. - nitroglycerin sublingual (NITROSTAT) 0.4 mg SL tablet Dissolve 1 tablet under the tongue every 5 minutes as needed. - aspirin, enteric coated (ASPIRIN, ENTERIC COATED) 81 mg EC tablet Take 1 tablet by mouth once daily. Facility-Administered Medications as of 09/04/2023 - perflutren lipid microspheres 1.3 mL in NaCl (PF) 0.9% 10 mL injection (DEFINITY) - sodium chloride 0.9 % (flush) 10 mL (BD POSIFLUSH) Problem List As Of Date 08/29/2023 Noted Resolved Centrilobular emphysema (HCC) [J43.2] 03/08/2008 SITUS INVERSUS [Q89.3] 03/03/2009 PERCUT TRANSLUM CORON ANGIO STATUS [Z98.61] 03/05/2009 Coronary atherosclerosis [I25.10] 03/22/2009 Diverticulitis [K57.92] 08/20/2010 Impaired fasting glucose [R73.01] 08/22/2010 Colon cancer [C18.9] 10/31/2010 11/09/2012 Diverticulitis of colon (without mention of hem*10/31/2010 Abdominal pain, left lower quadrant [R10.32] 10/31/2010 03/26/2011 Benign neoplasm of rectum and anal canal [D12.8*10/31/2010 05/23/2015 Malignant neoplasm of colon (HCC) [C18.9] 10/31/2010 06/19/2020 Secondary and unspecified malignant neoplasm of*11/23/2010 06/19/2020 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 04/08/2011 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] 08/22/2011 Thrombocytopenia [D69.6] 09/09/2011 Hx-rectal/anal malign [Z85.048] 12/23/2011 History of colon cancer, stage III [Z85.038] 11/09/2012 Rectal bleeding [K62.5] 09/22/2013 05/23/2015 Bladder wall thickening [N32.89] 11/23/2013 BPH (benign prostatic hyperplasia) [N40.0] 11/23/2013 Tobacco use disorder [F17.200] 11/23/2013 Presence of stent in left circumflex coronary a*08/17/2014 Presence of drug coated stent in right coronary*08/17/2014 SOB (shortness of breath) [R06.02] 11/27/2015 Mixed hyperlipidemia [E78.2] 11/27/2015 Appendicitis [K37] 07/21/2016 12/17/2017 Non morbid obesity due to excess calories [E66.*07/21/2016 Essential hypertension [I10] 11/19/2016 Hypoxemia [R09.02] 06/12/2017 Obesity, Class II, BMI 35-39.9 [E66.9] 12/01/2019 PFO (patent foramen ovale) [Q21.12] 12/20/2020 Elevated glucose [R73.09] 12/20/2020 COPD (chronic obstructive pulmonary disease) (H*03/03/2009 Chronic hypoxemic respiratory failure (HCC) [J9*08/24/2021 TIA (transient ischemic attack) [G45.9] 06/06/2022 S/P placement of cardiac pacemaker [Z95.0] 06/07/2022 Complete heart block (HCC) [I44.2] 06/07/2022 Encounter Status:Closed by DONA LOZOYA on 09/04/23 [facility] CNOVon 08-28-2023 CNOV Office Visit (PULMWS ) GABRIEL SANCHEZ ([id number]) 1955 M Date Time Provider Department 08/28/23 10:00 AM AMALIA PRITCHARD PULMWS During your visit today, we recorded the following information about you: Pulse Respiration Blood pressure 74/minute 18/minute 124/72 Sunitha Chirinos LPN 08/28/2023 9:41 AM Signed Intake information documented in the prior visit with ROGELIO Winchester today. Amalia Pritchard PA-C 08/28/2023 10:49 AM Signed Patient: Gabriel Sanchez PCP: Radha Shaikh MD CC: routine follow-up HPI: Gabriel Sanchez 68 year old male former approximately 70 pack year smoker, quitting in 2015 with PMH significant for moderate COPD (FEV1 52%), chronic hypoxemic respiratory failure (will only use nocturnal oxygen, does not qualify for POC), CHB s/p PPM, CAD, dextrocardia/malrotati on, HLD, СВЕТЛАНА non-compliant with CPAP, and colon [...] (HCC) 10/20/2010 COPD (chronic obstructive pulmonary disease) ([facility]) [address] Alfonso Coronary artery disease [...] Problem Relation Age of Onset Heart Mother IA other (chf) Mother Heart Father IA Heart disease Brother Heart disease Brother Heart Brother IA Heart Brother IA other (heart murmur) Daughter other (CTS) No [...] Left [employer] PAST SURGICAL HISTORY OF 201 (more content not included)... Normal [facility] OXIMETRY WITH AMBULATIONon 1 10-28-2022 [facility] No Panel Informationon 07-08 BLANK _ [facility] Implant Date 06/06/2022 [facility] Model [id number] [facility] PACEMAKER REMOTE CHECKon AV Delay Adaptive Paced Minimum (ms) 200 ms [facility] AV Delay Adaptive Sensed Minimum (ms) 150 ms [facility] Battery Voltage (volts) 3.01 V [facility] Emerson RA Pacing Amplitude (volts) 2.0 V [facility] Emerson RA Pacing Polarity BI [facility] Emerson RA Pacing Pulse Width (ms) 0.5 ms [facility] Emerson RA Sensing Amplitude (mvolts) 0.5 mV [facility] Emerson RA Sensing Polarity BI [facility] Emerson RV Pacing Amplitude (volts) 1.0 V [facility] Emerson RV Pacing Polarity BI [facility] Emerson RV Pacing Pulse Width (ms) 0.5 ms [facility] Emerson RV Sensing Amplitude (mvolts) 2.0 mV [facility] Emerson RV Sensing Polarity BI [facility] Lead[address] [facility] [employer] [facility] Lead2 [facility] [facility] [employer] [facility] Location RA [facility] Location RV [facility] Lower Rate (bpm) 60 {beats}/min [facility] Max Sensor Rate (bmp) 130 {beats}/min [facility] Model 2272 Assurity MRI [facility] Pacing Mode DDDR [facility] PM-Device Mfg STJ [facility] PM-Percent Pacing (A) 17.0 % [facility] PM-Percent Pacing (V) 99.0 % [facility] RA Bipolar Impedance ohms 410 ohm [facility] RV Bipolar Impedance ohms 450 ohm [facility] Serial Number [id number] [facility] Serial Number [id number] [facility] Serial Number [id number] [facility] Thresh RA Sensing Amplitude (mvolts) 5.0 mV [facility] Thresh RV Capture Amplitude (volts) 0.75 V [facility] Thresh RV Capture Duration (ms) 0.5 ms [facility] Thresh RV Sensing Amplitude (mvolts) 12.0 mV [facility] Tracking Rate (bpm) 130 {beats}/min [facility] No Panel Informationon 03-26 BLANK _ [facility] Implant Date 06/06/2022 [facility] Model 2088tc/65 [facility] PACEMAKER REMOTE CHECKon AV Delay Adaptive Paced Minimum (ms) 200 ms [facility] AV Delay Adaptive Sensed Minimum (ms) 150 ms [facility] Battery Voltage (volts) 3.01 V [facility] Emerson RA Pacing Amplitude (volts) 2.0 V [facility] Emerson RA Pacing Polarity BI [facility] Emerson RA Pacing Pulse Width (ms) 0.5 ms [facility] Emerson RA Sensing Amplitude (mvolts) 0.5 mV [facility] Emerson RA Sensing Polarity BI [facility] Emerson RV Pacing Amplitude (volts) 0.875 [facility] Emerson RV Pacing Polarity BI [facility] Emerson RV Pacing Pulse Width (ms) 0.5 ms [facility] Emerson RV Sensing Amplitude (mvolts) 2.0 mV [facility] Emerson RV Sensing Polarity BI [facility] Lead[address] [facility] [employer] [facility] Lead2 [facility] Location RA [facility] Location RV [facility] Lower Rate (bpm) 60 {beats}/min [facility] Max Sensor Rate (bmp) 130 {beats}/min [facility] Model 2272 Assurity MRI [facility] Pacing Mode DDDR [facility] PM-Device Mfg STJ [facility] PM-Percent Pacing (A) 9.7 % [facility] PM-Percent Pacing (V) 99.0 % [facility] RA Bipolar Impedance ohms 410 ohm [facility] RV Bipolar Impedance ohms 460 ohm [facility] Serial Number [id number] [facility] Serial Number [id number] [facility] Serial Number [id number] [facility] Thresh RA Sensing Amplitude (mvolts) 5.0 mV [facility] Thresh RV Capture Amplitude (volts) 0.625 V [facility] Thresh RV Capture Duration (ms) 0.5 ms [facility] [facility] Thresh RV Sensing Amplitude (mvolts) 7.7 mV [facility] Tracking Rate (bpm) 130 {beats}/min [facility] No Panel Informationon 12-19 BLANK _ [facility] Implant Date 06/06/2022 [facility] Model [id number] [facility] PACEMAKER CLINIC CHECKon AMS Fallback Rate (bpm) 70 {beats}/min [facility] AV Delay Adaptive Paced Minimum (ms) 200 ms [facility] AV Delay Adaptive Rate Maximum (bpm) 130 {beats}/min [facility] AV Delay Adaptive Rate Minimum (bpm) 90 {beats}/min [facility] AV Delay Adaptive Sensed Minimum (ms) 150 ms [facility] AV Delay Adaptive Status DISABLED [facility] Battery Voltage (volts) 2.99 V [facility] Emerson RA Pacing Amplitude (volts) 2 V [facility] Emerson RA Pacing Polarity BI [facility] Emerson RA Pacing Pulse Width (ms) 0.5 ms [facility] Emerson RA Sensing Blanking Period (ms) 150 ms [facility] Emerson RA Sensing Polarity BI [facility] Emerson RA Sensing Refractory Period (ms) 190 ms [facility] Emerson RV Pacing Amplitude (volts) 0.875 [facility] Emerson RV Pacing Polarity BI [facility] Emerson RV Pacing Pulse Width (ms) 0.5 ms [facility] Emerson RV Sensing Amplitude (mvolts) 2 mV [facility] Emerson RV Sensing Blanking Period (ms) 44 ms [facility] Emerson RV Sensing Polarity BI [facility] Emerson RV Sensing Refractory Period (ms) 250 ms [facility] Hysteresis Rate (bpm) Off [facility] Location RA [facility] Location RV [facility] Lower Rate (bpm) 60 {beats}/min [facility] Max Sensor Rate (bmp) 130 {beats}/min [facility] Model 2272 Assurity MRI [facility] Pacemaker Dependent? YES [facility] Pacing Mode DDDR [facility] PM-Device Mfg STJ [facility] PM-Percent Pacing (A) 4.8 % [facility] PM-Percent Pacing (V) 93 % [facility] PM-PMT Intervention Atrial Pace [facility] PM-PVC Intervention Atrial Pace [facility] PM-Rate Modulation Acceleration Reaction Fast [facility] PM-Rate Modulation Deceleration Medium [facility] PM-Rate Modulation [place] Auto (+0) [facility] PM-Rate Modulation Threshold Auto (+0.0) [facility] Rhythm CHB. No R waves w/ rate decreased [facility] Serial Number [id number] [facility] Serial Number [id number] [facility] Serial Number [id number] [facility] Thresh RA Capture Amplitude (volts) 0.75 V [facility] Thresh RA Capture Duration (ms) 0.5 ms [facility] Thresh RA Sensing Amplitude (mvolts) 5 mV [facility] Thresh RV Capture Amplitude (volts) 0.5 V [facility] Thresh RV Capture Duration (ms) 0.5 ms [facility] Thresh RV Sensing Amplitude (mvolts) 12 mV [facility] Tracking Rate (bpm) 130 {beats}/min [facility] No Panel Informationon 09-25 BLANK _ [facility] Implant Date 06/05/2022 [facility] Model [id number] [facility] PACEMAKER REMOTE CHECKon AV Delay Adaptive Paced Minimum (ms) 200 ms [facility] AV Delay Adaptive Sensed Minimum (ms) 150 ms [facility] Battery Voltage (volts) 3.01 V [facility] Emerson RA Pacing Amplitude (volts) 3.25 V [facility] Emerson RA Pacing Polarity BI [facility] Emerson RA Pacing Pulse Width (ms) 0.5 ms [facility] Emerson RA Sensing Amplitude (mvolts) 0.5 mV [facility] Emerson RA Sensing Polarity BI [facility] Emerson RV Pacing Amplitude (volts) 3.25 V [facility] Emerson RV Pacing Polarity BI [facility] Emerson RV Pacing Pulse Width (ms) 0.5 ms [facility] Emerson RV Sensing Amplitude (mvolts) 2 mV [facility] Emerson RV Sensing Polarity BI [facility] Lead[address] [facility] Lead[facility] Location RA [facility] Location RV [facility] Lower Rate (bpm) 60 {beats}/min [facility] Max Sensor Rate (bmp) 130 {beats}/min [facility] Model 2272 Assurity MRI [facility] Pacing Mode DDDR [facility] PM-Device Mfg STJ [facility] PM-Percent Pacing (A) 5.3 % [facility] PM-Percent Pacing (V) 97 % [facility] RA Bipolar Impedance ohms 450 ohm [facility] RV Bipolar Impedance ohms 480 ohm [facility] Serial Number [id number] [facility] Serial Number [id number] [facility] Serial Number [id number] [facility] Thresh RA Capture Amplitude (volts) 0.75 V [facility] Thresh RA Capture Duration (ms) 0.5 ms [facility] Thresh RA Sensing Amplitude (mvolts) 5 mV [facility] Thresh RV Capture Amplitude (volts) 0.5 V [facility] Thresh RV Capture Duration (ms) 0.5 ms [facility] Thresh RV Sensing Amplitude (mvolts) 12 mV [facility] Tracking Rate (bpm) 130 {beats}/min [facility] OXIMETRY WITH AMBULATIONon 1 11-06-2021 [facility] No Panel Informationon 07-05 BLANK _ [facility] Implant Date 06/05/2022 [facility] Model 8tc/65 [facility]EM[facility] CLINIC CHECKon AMS Fallback Rate (bpm) 70 {beats}/min [facility] AV Delay Adaptive Paced Minimum (ms) 200 ms [facility] AV Delay Adaptive Rate Maximum (bpm) 130 {beats}/min [facility] AV Delay Adaptive Rate Minimum (bpm) 90 {beats}/min [facility] AV Delay Adaptive Sensed Minimum (ms) 150 ms [facility] AV Delay Adaptive Status DISABLED [facility] Battery Voltage (volts) 3.13 V [facility] Emerson RA Pacing Amplitude (volts) 3.25 V [facility] Emerson RA Pacing Polarity BI [facility] Emerson RA Pacing Pulse Width (ms) 0.5 ms [facility] Emerson RA Sensing Blanking Period (ms) 150 ms [facility] Emerson RA Sensing Polarity BI [facility] Emerson RA Sensing Refractory Period (ms) 190 ms [facility] Emerson RV Pacing Amplitude (volts) 3.25 V [facility] Emerson RV Pacing Polarity BI [facility] Emerson RV Pacing Pulse Width (ms) 0.5 ms [facility] Emerson RV Sensing Amplitude (mvolts) 2 mV [facility] Emerson RV Sensing Blanking Period (ms) 44 ms [facility] Emerson RV Sensing Polarity BI [facility] Emerson RV Sensing Refractory Period (ms) 250 ms [facility] Hysteresis Rate (bpm) Off [facility] Lead[facility] Lead[facility] Location RA [facility] Location RV [facility] Lower Rate (bpm) 60 {beats}/min [facility] Max Sensor Rate (bmp) 130 {beats}/min [facility] Model 2272 Assurity MRI [facility] Pacemaker Dependent? YES [facility] Pacing Mode DDDR [facility] PM-Device Mfg STJ [facility] PM-Percent Pacing (A) 0.16 % [facility] PM-Percent Pacing (V) 99.72 % [facility] PM-PMT Intervention Atrial Pace [facility] PM-PVC Intervention Atrial Pace [facility] PM-Rate Modulation Acceleration Reaction Fast [facility] PM-Rate Modulation Deceleration Medium [facility] PM-Rate Modulation [place] Auto (+0) [facility] PM-Rate Modulation Threshold Auto (+0.0) [facility] RA Bipolar Impedance ohms 410 ohm [facility] Rhythm no R waves @ VVI 40 [facility] RV Bipolar Impedance ohms 480 ohm [facility] Serial Number [id number] [facility] Serial Number [id number] [facility] Serial Number [id number] [facility] Thresh RA Capture Amplitude (volts) 0.5 V [facility] Thresh RA Capture Duration (ms) 0.5 ms [facility] Thresh RA Sensing Amplitude (mvolts) 5 mV [facility] Thresh RV Capture Amplitude (volts) 0.5 V [facility] Thresh RV Capture Duration (ms) 0.5 ms [facility] Thresh RV Sensing Amplitude (mvolts) paced [facility] Tracking Rate (bpm) 130 {beats}/min [facility] No Panel Informationon 06-17 BLANK _ [facility] Implant Date 06/05/2022 [facility] Model [id number] [facility] PACEMAKER REMOTE CHECKon AV Delay Adaptive Paced Minimum (ms) 200 ms [facility] AV Delay Adaptive Sensed Minimum (ms) 150 ms [facility] Battery Voltage (volts) 3.13 V [facility] Emerson RA Pacing Amplitude (volts) 3.25 V [facility] Emerson RA Pacing Polarity BI [facility] Emerson RA Pacing Pulse Width (ms) 0.5 ms [facility] Emerson RA Sensing Amplitude (mvolts) 0.5 mV [facility] Emerson RA Sensing Polarity BI [facility] Emerson RV Pacing Amplitude (volts) 3.25 V [facility] Emerson RV Pacing Polarity BI [facility] Emerson RV Pacing Pulse Width (ms) 0.5 ms [facility] Emerson RV Sensing Amplitude (mvolts) 2 mV [facility] Emerson RV Sensing Polarity BI [facility] Lead[facility] Lead[facility] Location RA [facility] Location RV [facility] Lower Rate (bpm) 60 {beats}/min [facility] Max Sensor Rate (bmp) 130 {beats}/min [facility] Model 2272 Assurity MRI [facility] Pacing Mode DDDR [facility] PM-Device Mfg STJ [facility] PM-Percent Pacing (A) 7.4 % [facility] PM-Percent Pacing (V) 98 % [facility] RA Bipolar Impedance ohms 410 ohm [facility] RV Bipolar Impedance ohms 540 ohm [facility] Serial Number [id number] [facility] Serial Number [id number] [facility] Serial Number [id number] [facility] Thresh RA Capture Amplitude (volts) 0.75 V [facility] Thresh RA Capture Duration (ms) 0.5 ms [facility] Thresh RA Sensing Amplitude (mvolts) 5 mV [facility] Thresh RV Capture Amplitude (volts) 0.5 V [facility] Thresh RV Capture Duration (ms) 0.5 ms [facility] Thresh RV Sensing Amplitude (mvolts) 11.3 mV [facility] Tracking Rate (bpm) 130 {beats}/min [facility] No Panel Informationon 06-12 BLANK _ [facility] Implant Date 06/05/2022 [facility] Model [id number] [facility] PACEMAKER CLINIC CHECKon AMS Fallback Rate (bpm) 70 {beats}/min [facility] AV Delay Adaptive Paced Minimum (ms) 200 ms [facility] AV Delay Adaptive Rate Maximum (bpm) 130 {beats}/min [facility] AV Delay Adaptive Rate Minimum (bpm) 90 {beats}/min [facility] AV Delay Adaptive Sensed Minimum (ms) 150 ms [facility] AV Delay Adaptive Status DISABLED [facility] Battery Voltage (volts) 3.13 V [facility] Emerson RA Pacing Amplitude (volts) 3.25 V [facility] Emerson RA Pacing Polarity BI [facility] Emerson RA Pacing Pulse Width (ms) 0.5 ms [facility] Emerson RA Sensing Blanking Period (ms) 150 ms [facility] Emerson RA Sensing Polarity BI [facility] Emerson RA Sensing Refractory Period (ms) 190 ms [facility] Emerson RV Pacing Amplitude (volts) 3.25 V [facility] Emerson RV Pacing Polarity BI [facility] Emerson RV Pacing Pulse Width (ms) 0.5 ms [facility] Emerson RV Sensing Amplitude (mvolts) 2 mV [facility] Emerson RV Sensing Blanking Period (ms) 44 ms [facility] Emerson RV Sensing Polarity BI [facility] Emerson RV Sensing Refractory Period (ms) 250 ms [facility] Hysteresis Rate (bpm) Off [facility] Lead[facility] Lead[facility] Location RA [facility] Location RV [facility] Lower Rate (bpm) 60 {beats}/min [facility] Max Sensor Rate (bmp) 130 {beats}/min [facility] Model 2272 Assurity MRI [facility] Pacemaker Dependent? NO [facility] Pacing Mode DDDR [facility] PM-Device Mfg STJ [facility] PM-Percent Pacing (A) 7.6 % [facility] PM-Percent Pacing (V) 98 % [facility] PM-PMT Intervention Atrial Pace [facility] PM-PVC Intervention Atrial Pace [facility] PM-Rate Modulation Acceleration Reaction Fast [facility] PM-Rate Modulation Deceleration Medium [facility] PM-Rate Modulation [place] Auto (+0) [facility] PM-Rate Modulation Threshold Auto (+0.0) [facility] Rhythm CHB @ 42 bpm [facility] Serial Number [id number] [facility] Serial Number [id number] [facility] Serial Number [id number] [facility] Thresh RA Capture Amplitude (volts) 0.75 V [facility] Thresh RA Capture Duration (ms) 0.5 ms [facility] Thresh RA Sensing Amplitude (mvolts) 5 mV [facility] Thresh RV Capture Amplitude (volts) 0.5 V [facility] Thresh RV Capture Duration (ms) 0.5 ms [facility] Thresh RV Sensing Amplitude (mvolts) 11.3 mV [facility] Tracking Rate (bpm) 130 {beats}/min [facility] OXIMETRY WITH AMBULATIONon 0 01-31-2022 [facility] XR Chest PA and LateralOrder ed By: [facility] Provider on 07-11-2021 Interpretation and review of laboratory results Abnormal [facility] Radiology Result ACTIONABLE [facility] Comment on above: This report contains an incidental or actionable finding. This is a new finding that is separate from the reason your provider ordered the imaging test. Because of this incidental or actionable finding, you may need another imaging test to evaluate it. Please contact your provider for the next steps. [facility] XR Chest PA and Lateralon IMPRESSION: Multifocal pneumonia. Large area of consolidation in the right upper lobe. Follow-up to document resolution is necessary ACTIONABLE RESULT: FOLLOW-UP Acuity: Actionable Findings: Thoracic-Other Routing Code: CT_1 Recommendation: Unlisted Recommendation (see report) Time Frame: At the discretion of the clinical team. COMMUNICATION: Results will be communicated with the ordering provider via [employer] staff message or phone message by [facility] within 2 business days of report finalization. Algorithms for management of incidental imaging findings can be found on the [facility] Intranet Sharepoint site at: [email or web address] [email or web address] [email or web address] [email or web address] Meat Molder: RAYSHAWN Transcribe Date/Time: Jul 11 2021 11:04A Dictated by : SHANIKA GALLAGHER MD This examination was interpreted and the report reviewed and electronically signed by: SHANIKA GALLAGHER MD on Jul 11 2021 11:09AM [facility] DIVISION OF RADIOLOGY * * *Final Report* * * DATE OF EXAM: Jul 11 2021 10:32AM WOX [id number] - XR CHEST 2V FRONTAL/LAT / PROCEDURE REASON: multiple diagnoses * * * * Physician Interpretation * * * * EXAMINATION: CHEST RADIOGRAPH (2 VIEW FRONTAL & LATERAL) CLINICAL HISTORY: Chronic obstructive pulmonary disease with acute exacerbation (HCC) SOB (shortness of breath) MQ: XC2_6 EXAM DATE/TIME: 07/11/2021 10:32 AM COMPARISON: 06/26/2018 RESULT: Lines, tubes, and devices: None. Lungs and pleura: Large area of right upper lobe consolidation is seen. Patchy infiltrates in the right lung elsewhere, and at the left base are also seen. No pleural fluid or pneumothorax Cardiomediastinal silhouette: Right cardiac apex. Left aortic arch. Described previously. Stable. Bones and soft tissues: Unremarkable. DIVISION OF RADIOLOGY Provider, [facility] - 07/11/2021 * * *Final Report* * * DATE OF EXAM: Jul 11 2021 10:32AM WOX [id number] - XR CHEST 2V FRONTAL/LAT / PROCEDURE REASON: multiple diagnoses * * * * Physician Interpretation * * * * EXAMINATION: CHEST RADIOGRAPH (2 VIEW FRONTAL & LATERAL) CLINICAL HISTORY: Chronic obstructive pulmonary disease with acute exacerbation (HCC) SOB (shortness of breath) MQ: XC2_6 EXAM DATE/TIME: 07/11/2021 10:32 AM COMPARISON: 06/26/2018 RESULT: Lines, tubes, and devices: None. Lungs and pleura: Large area of right upper lobe consolidation is seen. Patchy infiltrates in the right lung elsewhere, and at the left base are also seen. No pleural fluid or pneumothorax Cardiomediastinal silhouette: Right cardiac apex. Left aortic arch. Described previously. Stable. Bones and soft tissues: Unremarkable. IMPRESSION IMPRESSION: Multifocal pneumonia. Large area of consolidation in the right upper lobe. Follow-up to document resolution is necessary ACTIONABLE RESULT: FOLLOW-UP Acuity: Actionable Findings: Thoracic-Other Routing Code: CT_1 Recommendation: Unlisted Recommendation (see report) Time Frame: At the discretion of the clinical team. COMMUNICATION: Results will be communicated with the ordering provider via [employer] staff message or phone message by [facility] within 2 business days of report finalization. Algorithms for management of incidental imaging findings can be found on the [facility] Intranet Sharepoint site at: [email or web address] [email or web address] [email or web address] [email or web address] Meat Molder: PSCB Transcribe Date/Time: Jul 11 2021 11:04A Dictated by : SHANIKA GALLAGHER MD This examination was interpreted and the report reviewed and electronically signed by: SHANIKA GALLAGHER MD on Jul 11 2021 11:09AM EST [facility] Radiology Study observation (narrative) [facility] ECG B/O W INTERP (MED OFFICE ) [facility] Vital Signs Date Time Vital Sign Value Performing Clinician Faci edsony 05-20-2024 13:41-0400 Heart rate 68 /min Trisha Prebish 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 Phone: [facility] 05-20-2024 13:41-0400 Respiratory rate 20 /min Trisha Prebish 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 Phone: [facility] 05-20-2024 13:41-0400 SaO2% (BldA) [Mass fraction] 93 % Trisha Prebish 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 Phone: [facility] 04-26-2024 13:02-0400 Body mass index (BMI) [Ratio] 36.64 kg/m2 Liz Selma 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 Phone: [facility] 04-26-2024 13:02-0400 Body weight 109.32 kg Liz Selma 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 Phone: [facility] 04-26-2024 13:02-0400 Diastolic blood pressure 64 mm[Hg] Liz Selma 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 Phone: [facility] 04-26-2024 13:02-0400 Heart rate 71 /min Liz Selma 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 Phone: [facility] 04-26-2024 13:02-0400 Respiratory rate 17 /min Liz Selma 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 Phone: [facility] 04-26-2024 13:02-0400 SaO2% (BldA) [Mass fraction] 94 % Liz Selma 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 Phone: [facility] 04-26-2024 13:02-0400 Systolic blood pressure 112 mm[Hg] Liz Selma 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 Phone: [facility] 03-09-2024 14:50-0400 Body mass index (BMI) [Ratio] 36.78 kg/m2 Radha Shaikh MD Work Phone: [facility] 03-09-2024 14:50-0400 Body weight 109.72 kg Radha Shaikh MD Work Phone: [facility] 03-09-2024 14:50-0400 Diastolic blood pressure 80 mm[Hg] Radha Shaikh MD Work Phone: [facility] 03-09-2024 14:50-0400 Heart rate 78 /min Radha Shaikh MD Work Phone: [facility] 03-09-2024 14:50-0400 Respiratory rate 16 /min Radha Shaikh MD Work Phone: [facility] 03-09-2024 14:50-0400 SaO2% (BldA) [Mass fraction] 98 % Radha Shaikh MD Work Phone: [facility] 03-09-2024 14:50-0400 Systolic blood pressure 128 mm[Hg] Radha Shaikh MD Work Phone: [facility] 02-24-2024 15:12-0400 Body mass index (BMI) [Ratio] 37.1 kg/m2 Camila Mohan MD Work Phone: [facility] 02-24-2024 15:12-0400 Body weight 110.68 kg Camila Mohan MD Work Phone: [facility] 02-24-2024 15:12-0400 Diastolic blood pressure 86 mm[Hg] Camila Mohan MD Work Phone: [facility] 02-24-2024 15:12-0400 Heart rate 74 /min Camila Mohan MD Work Phone: [facility] 02-24-2024 15:12-0400 Respiratory rate 16 /min Camila Mohan MD Work Phone: [facility] 02-24-2024 15:12-0400 SaO2% (BldA) [Mass fraction] 94 % Camila Mohan MD Work Phone: [facility] Comment on above: 3L via [place] 02-24-2024 15:12-0400 Systolic blood pressure 132 mm[Hg] Camila Mohan MD Work Phone: [facility] 02-06-2024 14:22-0400 Heart rate 75 /min Trisha Prebish 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 Phone: [facility] 02-06-2024 14:22-0400 Respiratory rate 18 /min Trisha Prebish 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 Phone: [facility] 02-06-2024 14:22-0400 SaO2% (BldA) [Mass fraction] 95 % Trisha Prebish 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 Phone: [facility] 01-01-2024 10:12-0400 Heart rate 74 /min Rome Alberto MD Work Phone: [facility] 01-01-2024 10:12-0400 Respiratory rate 20 /min Rome Alberto MD Work Phone: [facility] 01-01-2024 10:12-0400 SaO2% (BldA) [Mass fraction] 95 % Rome Alberto MD Work Phone: [facility] 11-26-2023 14:45-0500 Body weight 107.96 kg Amalia Sonia PA-C Work Phone: [facility] 11-26-2023 14:45-0500 Diastolic blood pressure 68 mm[Hg] Amalia Sonia PA-C Work Phone: [facility] 11-26-2023 14:45-0500 Heart rate 114 /min Amalia Sonia PA-C Work Phone: [facility] 11-26-2023 14:45-0500 Respiratory rate 17 /min Amalia Sonia PA-C Work Phone: [facility] 11-26-2023 14:45-0500 SaO2% (BldA) [Mass fraction] 94 % Amalia Sonia PA-C Work Phone: [facility] 11-26-2023 14:45-0500 Systolic blood pressure 112 mm[Hg] Amalia Sonia PA-C Work Phone: [facility] 09-09-2023 15:10-0500 Body weight 110.31 kg Radha Shaikh MD Work Phone: [facility] 09-09-2023 15:10-0500 Diastolic blood pressure 80 mm[Hg] Radha Shaikh MD Work Phone: [facility] 09-09-2023 15:10-0500 Heart rate 88 /min Radha Shaikh MD Work Phone: [facility] 09-09-2023 15:10-0500 Respiratory rate 18 /min Radha Shaikh MD Work Phone: [facility] 09-09-2023 15:10-0500 SaO2% (BldA) [Mass fraction] 93 % Radha Shaikh MD Work Phone: [facility] 09-09-2023 15:10-0500 Systolic blood pressure 114 mm[Hg] Radha Shaikh MD Work Phone: [facility] 08-28-2023 09:42-0500 Diastolic blood pressure 72 mm[Hg] Amalia Sonia PA-C Work Phone: [facility] 08-28-2023 09:42-0500 Heart rate 74 /min Amalia Sonia PA-C Work Phone: [facility] 08-28-2023 09:42-0500 Respiratory rate 18 /min Amalia Sonia PA-C Work Phone: [facility] 08-28-2023 09:42-0500 SaO2% (BldA) [Mass fraction] 89 % Amalia Sonia PA-C Work Phone: [facility] 08-28-2023 09:42-0500 Systolic blood pressure 124 mm[Hg] Amalia Sonia PA-C Work Phone: [facility] 05-28-2023 13:48-0400 Body height 172.7 cm Amalia Sonia PA-C Work Phone: [facility] 05-28-2023 13:48-0400 Body weight 109.77 kg Amalia Sonia PA-C Work Phone: [facility] 05-28-2023 13:48-0400 Diastolic blood pressure 80 mm[Hg] Amalia Sonia PA-C Work Phone: [facility] 05-28-2023 13:48-0400 Heart rate 90 /min Amalia Sonia PA-C Work Phone: [facility] 08-09-2023 13:48-0400 Respiratory rate 14 /min Amalia Gandhione PA-C Work Phone: [facility] 05-28-2023 13:48-0400 SaO2% (BldA) [Mass fraction] 91 % Amalia Sonia PA-C Work Phone: [facility] 05-28-2023 13:48-0400 Systolic blood pressure 120 mm[Hg] Amalia Gandhione PA-C Work Phone: [facility] 03-24-2023 14:04-0400 Body weight 110.04 kg Camila Mohan MD Work Phone: [facility] 03-24-2023 14:04-0400 Diastolic blood pressure 68 mm[Hg] Camila Mohan MD Work Phone: [facility] 03-24-2023 14:04-0400 Heart rate 110 /min Camila Mohan MD Work Phone: [facility] 03-24-2023 14:04-0400 Respiratory rate 18 /min Camila Mohan MD Work Phone: [facility] 03-24-2023 14:04-0400 SaO2% (BldA) [Mass fraction] 90 % Camila Mohan MD Work Phone: [facility] 03-24-2023 14:04-0400 Systolic blood pressure 130 mm[Hg] Camila Mohan MD Work Phone: [facility] 09-09-2022 15:49-0500 Body weight 113.31 kg Radha Shaikh MD Work Phone: [facility] 09-09-2022 15:49-0500 Diastolic blood pressure 72 mm[Hg] Radha Shaikh MD Work Phone: [facility] 09-09-2022 15:49-0500 Heart rate 92 /min Radha Shaikh MD Work Phone: [facility] 09-09-2022 15:49-0500 Respiratory rate 20 /min Radha Shaikh MD Work Phone: [facility] 09-09-2022 15:49-0500 SaO2% (BldA) [Mass fraction] 88 % Radha Shaikh MD Work Phone: [facility] 09-09-2022 15:49-0500 Systolic blood pressure 124 mm[Hg] Radha Shaikh MD Work Phone: [facility] 09-06-2022 09:13-0500 Body height 172.7 cm Respiratory Wstr Work Phone: [facility] 09-06-2022 09:13-0500 Body weight 113.85 kg Respiratory Wstr Work Phone: [facility] 07-10-2022 14:32-0400 Body height 172.7 cm Anton Rock APRN.INDEPENDENT FILM MAKER Work Phone: [facility] 07-10-2022 14:32-0400 Body weight 107.96 kg Anton Rock APRN.INDEPENDENT FILM MAKER Work Phone: [facility] 07-10-2022 14:32-0400 Diastolic blood pressure 72 mm[Hg] Anton Rock APRN.INDEPENDENT FILM MAKER Work Phone: [facility] 07-10-2022 14:32-0400 Heart rate 83 /min Anton Rock APRN.INDEPENDENT FILM MAKER Work Phone: [facility] 07-10-2022 14:32-0400 SaO2% (BldA) [Mass fraction] 94 % Anton Rock APRN.INDEPENDENT FILM MAKER Work Phone: [facility] 07-10-2022 14:32-0400 Systolic blood pressure 110 mm[Hg] Anton Rock APRN.INDEPENDENT FILM MAKER Work Phone: [facility] 06-20-2022 12:52-0400 Body weight 109.54 kg Amalia Pritchard PA-C Work Phone: [facility] 06-20-2022 12:52-0400 Diastolic blood pressure 82 mm[Hg] Amalia Pritchard PA-C Work Phone: [facility] 06-20-2022 12:52-0400 Heart rate 91 /min Amalia Sonia PA-C Work Phone: [facility] 06-20-2022 12:52-0400 SaO2% (BldA) [Mass fraction] 90 % Amalia Sonia PA-C Work Phone: [facility] 06-20-2022 12:52-0400 Systolic blood pressure 128 mm[Hg] Amalia Sonia PA-C Work Phone: [facility] 01-31-2022 14:17-0400 Body weight 118.39 kg Respiratory Wstr Work Phone: [facility] 01-31-2022 14:17-0400 Body weight 120.66 kg Amalia Sonia PA-C Work Phone: [facility] 01-31-2022 14:17-0400 Diastolic blood pressure 58 mm[Hg] Amalia Sonia PA-C Work Phone: [facility] 01-31-2022 14:17-0400 Heart rate 102 /min Respiratory Wstr Work Phone: [facility] 01-31-2022 14:17-0400 Heart rate 81 /min Amalia Sonia PA-C Work Phone: [facility] 01-31-2022 14:17-0400 SaO2% (BldA) [Mass fraction] 94 % Respiratory Wstr Work Phone: [facility] 01-31-2022 14:17-0400 SaO2% (BldA) [Mass fraction] 90 % Amalia Sonia PA-C Work Phone: [facility] 01-31-2022 14:17-0400 Systolic blood pressure 123 mm[Hg] Amalia Sonia PA-C Work Phone: [facility] Encounters Encounter Date Encounter Type Care Provider Facility Start: 08-09-2024 End: 08-12-2024 Telephone encounter Radha Shaikh MD Work Phone: [facility] [place] Comment on above: oxygen form Start: 05-20-2024 End: 05-20-2024 Patient encounter procedure Trisha Aviladivine 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 Phone: [facility] Comment on above: Chronic pain of both knees (Primary Dx); Primary osteoarthritis of both knees Start: 05-20-2024 End: 05-20-2024 ambulatory [facility] Facility:[facility] Start: 05-12-2024 Telephone encounter Liz jeong 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 Phone: [facility]Sleep/[facility]i [facility] Comment on above: Results Start: 05-06-2024 End: 05-06-2024 ambulatory LIZ YE Facility:[facility] Start: 05-06-2024 End: 05-06-2024 Subsequent hospital visit by physician Shannon [facility] (I-Stat) Work Phone: Cat Scan Comment on above: Former cigarette smo ker [Z87.891] Start: 04-28-2024 End: 04-28-2024 Follow-up encounter Jose Manuel Tracy MD Work Phone: [facility] Comment on above: Remote Pacemaker Fol low Up Start: 04-28-2024 Professional / ancillary services management Jose Manuel Tracy MD Work Phone: [facility] Start: 04-28-2024 End: 04-28-2024 ambulatory [facility] Facility:[facility] Start: 04-28-2024 End: 04-28-2024 Patient encounter procedure Rem Device Ck [facility] Start: 04-26-2024 End: 04-26-2024 ambulatory CAMILA MOHAN Facility:[facility] Start: 04-26-2024 End: 04-26-2024 Patient encounter procedure Liz Ye 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 Phone: Pulmonary Medicine Comment on above: Encounter for screen ing for lung cancer (Primary Dx); Former cigarette smoker Start: 04-21-2024 End: 04-21-2024 ambulatory ROME ALBERTO Facility:[facility] Start: 04-07-2024 Telephone encounter Rome Alberto MD Work Phone: [facility] [place] Comment on above: Returning Patient's Call Start: 04-06-2024 Telephone encounter Rome Alberto MD Work Phone: [facility] [place] Comment on above: Returning Patient's Call Start: 03-18-2024 End: 03-18-2024 ambulatory RADHA SHAIKH Facility:[facility] Start: 03-16-2024 Telephone encounter Rome Alberto MD Work Phone: [facility] [place] Comment on above: Appointment Start: 03-09-2024 End: 03-09-2024 ambulatory RADHA Cruz [facility] Facility:[facility] Start: 03-09-2024 End: 03-09-2024 Patient encounter procedure Radha Shaikh MD Work Phone: [facility] [place] Comment on above: Essential hypertensi on (Primary Dx); Atherosclerosis of [place] coronary artery of [place] heart without angina pectoris; Mixed hyperlipidemia; Chronic obstructive pulmonary disease, unspecified COPD type (HCC); Chronic hypoxemic respiratory failure (HCC); Impaired fasting glucose; Primary osteoarthritis of both knees; Thrombocytopenia (HCC); Muscle cramps; Complete heart block (HCC) Start: 02-24-2024 End: 02-24-2024 ambulatory CAMILA MOHAN Facility:[facility] Start: 02-24-2024 End: 02-24-2024 Patient encounter procedure Camila Mohan MD Work Phone: Pulmonary Medicine Comment on above: Moderate COPD (Prima ry Dx); Chronic hypoxemic respiratory failure (HCC); Former cigarette smoker; Class 2 obesity Start: 02-23-2024 Refill Dioni JALLOH RN.INDEPENDENT FILM MAKER Work Phone: [facility] [place] Comment on above: Refill Request Start: 02-11-2024 Orders Only Rome Alberto MD Work Phone: [facility] [place] Comment on above: Chronic pain of both knees (Primary Dx); Primary osteoarthritis of both knees Start: 02-06-2024 End: 02-06-2024 Office outpatient visit 15 minutes Trisha Henderson APRN.INDEPENDENT FILM MAKER Work Phone: [facility] Comment on above: Chronic pain of both knees (Primary Dx); Primary osteoarthritis of both knees; Anxiety due to invasive procedure Start: 02-06-2024 Telephone encounter Trisha Mccloudzachary haskins APRN.INDEPENDENT FILM MAKER Work Phone: [facility] Comment on above: Injections (Question s) Forms (Procedure Candido arance) Start: 02-06-2024 End: 02-06-2024 ambulatory TRISHA HENDERSON Facility:[facility] Start: 01-30-2024 End: 01-30-2024 ambulatory ROME ALBERTO Facility:[facility] Start: 01-21-2024 Follow-up encounter Jose Manuel Tracy MD Work Phone: [facility] Start: 01-21-2024 End: 01-21-2024 Patient encounter procedure Jose Manuel Tracy MD Work Phone: [facility] Start: 01-21-2024 End: 01-21-2024 ambulatory RADHA Cruz [facility] Comment on above: Permanent Pacemaker Start: 01-01-2024 End: 01-01-2024 Patient encounter procedure Rome Alberto MD Work Phone: [facility] Comment on above: Primary osteoarthrit is of both knees (Primary Dx); Chronic pain of both knees Primary osteoarthrit is of both knees (Primary Dx) Start: 01-01-2024 Telephone encounter Rome Alberto MD Work Phone: [facility] Comment on above: Injection Questions; Patient Question Start: 01-01-2024 End: 01-01-2024 ambulatory SUKHI BORJAS Facility:[facility] Start: 12-01-2023 End: 12-01-2023 Orders Only Sukhi Borjas MD Work Phone: Orthopaedics Comment on above: Pain in both knees, unspecified chronicity (Primary Dx) Pain in both knees, unspecified chronicity [M25.561, M25.562] Chronic pain of both knees (Primary Dx); Primary osteoarthritis of both knees Start: 11-27-2023 Telephone encounter Sukhi keys MD Work Phone: Orthopaedics Comment on above: Chart Prep Start: 11-26-2023 End: 11-26-2023 ambulatory RADHA SHAIKH Facility:[facility] Start: 11-26-2023 End: 11-26-2023 Office outpatient visit 25 minutes Amalia Pritchard PA-C Work Phone: Pulmonary Medicine Comment on above: Moderate COPD (chron ic obstructive pulmonary disease) (HCC) (Primary Dx); Chronic hypoxemic respiratory failure (HCC); Former cigarette smoker; ВСЕТЛАНА (obstructive sleep apnea) Start: 10-15-2023 End: 10-15-2023 ambulatory RADHA SHAIKH Facility:[facility] Start: 09-25-2023 ambulatory Amalia Raygoza PA-C Work Phone: Pulmonary Medicine Comment on above: oxygen Start: 09-25-2023 E-mail encounter fro m caregiver Amalia LEES-C Work Phone: [facility][1] Start: 09-09-2023 End: 09-09-2023 ambulatory RADHA Cruz [facility] Facility:[facility] Start: 09-09-2023 End: 09-09-2023 Patient encounter procedure Radha Shaikh MD Work Phone: [facility] Comment on above: Essential hypertensi on (Primary Dx); Mixed hyperlipidemia; Chronic pain of both knees; 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); Chronic hypoxemic respiratory failure (HCC); S/P placement of cardiac pacemaker; Atherosclerosis of [place] coronary artery of [place] heart without angina pectoris; Elevated glucose; Depression, unspecified depression type; Need for influenza vaccination; Need for vaccination; Skin lesion; Actinic keratosis Start: 08-29-2023 Telephone encounter Dona Kee Start: 08-28-2023 End: 08-28-2023 Office outpatient visit 25 minutes Amalia LEES-C Work Phone: Pulmonary Medicine Comment on above: 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 ([facility]) (Primary Dx); Chronic hypoxemic respiratory failure (HCC); Former cigarette smoker Start: 08-28-2023 End: 08-28-2023 ambulatory Pulm Lab [facility] Work Phone: [facility]UL[facility] Comment on above: Spirometry Start: 08-28-2023 End: 08-28-2023 Patient encounter procedure Pulm Lab [facility] Work Phone: [facility] Start: 07-08-2023 End: 07-08-2023 Follow-up encounter Jose Manuel Tracy MD Work Phone: [facility] Comment on above: Remote Pacemaker Fol low Up Start: 07-08-2023 Pacemaker Remote F/U Jose Manuel Alvarenga MD Work Phone: [facility] Start: 07-08-2023 End: 07-08-2023 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 Comment on above: Permanent Pacemaker Start: 12-19-2022 Follow-up encounter Jose Manuel Tracy MD Work Phone: [facility] Start: 12-19-2022 End: 12-19-2022 Patient encounter procedure Device Clinic 1 [facility] Start: 11-28-2022 Refill Dioni JALLOH RN.INDEPENDENT FILM MAKER Work Phone: Family Medicine [place] Comment on above: Refill Request Start: 09-25-2022 End: 09-25-2022 Follow-up encounter Jose Manuel Tracy MD Work Phone: [facility] Comment on above: Remote Pacemaker Fol low Up Start: 09-25-2022 Pacemaker Remote F/U Jose Manuel Alvarenga MD Work Phone: [facility] Start: 09-25-2022 End: 09-25-2022 Patient encounter procedure Rem Device Ck [facility] Start: 09-09-2022 End: 09-09-2022 Patient encounter procedure Radha Shaikh MD Work Phone: [facility] [place] Comment on above: Chronic obstructive pulmonary disease, unspecified COPD type (HCC) (Primary Dx); Essential hypertension; Mixed hyperlipidemia; S/P placement of cardiac pacemaker; Cataract of both eyes, unspecified cataract type Start: 09-06-2022 Telephone encounter Dona Kee Comment on above: Patient Assistance Start: 09-06-2022 End: 09-06-2022 ambulatory Respiratory Therapist [facility] Work Phone: Pulmonary Medicine Comment on above: Spirometry Start: 09-06-2022 End: 09-06-2022 Patient encounter procedure Respiratory Therapist [facility] Work Phone: [facility] Start: 09-02-2022 Telephone encounter Amalia ( Jaziel) Sonia Work Phone: Pulmonary Medicine Comment on above: Orders Start: 08-29-2022 Telephone encounter Jennyfer Cain APRN.CNP Work Phone: Cardiology Comment on above: Cardiac Clearance Start: 07-23-2022 ambulatory Fannie dukes RN Work Phone: [employer] Comment on above: Community Monitoring Outreach (Intake #3) Start: 07-15-2022 ambulatory Fannie dukes RN Work Phone: [employer] Comment on above: Community Monitoring Outreach (Intake #2) Start: 07-11-2022 ambulatory Fannie dukes RN Work Phone: [employer] Comment on above: Community Monitoring Outreach (Intake #1) Start: 07-10-2022 End: 07-10-2022 Patient encounter procedure Anton Rock APRN.INDEPENDENT FILM MAKER Work Phone: [facility] Cardiology [place] Comment on above: S/P placement of car diac pacemaker (Primary Dx); Essential hypertension Start: 07-09-2022 ambulatory Joyce Sheppard RN [facility] Start: 07-09-2022 Follow-up encounter Joyce Sheppard [employer] Comment on above: Transition Of Care ( TCM follow-up) Start: 06-26-2022 [facility]ulatory [facility] Start: 06-26-2022 Follow-up encounter Joyce Sheppard RN [employer] Comment on above: Transition Of Care ( TCM follow-up) Start: 06-25-2022 Telephone encounter Amalia Pritchard ( Historical) Work Phone: Pulmonary Medicine Comment on above: Orders Start: 06-20-2022 End: 06-20-2022 Patient encounter procedure Amalia Pritchard PA-C Work Phone: Pulmonary Medicine Comment on above: COPD with chronic br onchitis (HCC) (Primary Dx); Chronic hypoxemic respiratory failure (HCC); СВЕТЛАНА (obstructive sleep apnea); History of COVID-19 Start: 06-17-2022 Telephone encounter Jennyfer Cain APRN.INDEPENDENT FILM MAKER Work Phone: [facility] Cardiology Comment on above: Hospital Follow Up; Appointment Patient Question; Ca re Coordinator - Other Start: 06-15-2022 End: 06-15-2022 Follow-up encounter Jose Manuel Tracy MD Work Phone: [facility] Comment on above: Remote Pacemaker Fol low Up Start: 06-15-2022 Pacemaker Remote F/U Jose Manuel Alvarenga MD Work Phone: [facility] Start: 06-15-2022 End: 06-15-2022 Patient encounter procedure Rem Device Ck [facility] Start: 06-14-2022 End: 06-14-2022 ambulatory Nurse Pob Work Phone: [facility] Cardiology Dionisio Comment on above: Visit for wound chec k (Primary Dx) Start: 06-14-2022 End: 06-14-2022 Telemedicine consultation with patient Nurse Card Ag Dionisio Gomez Work Phone: [facility] Start: 06-13-2022 Patient Outreach Christine Mills RN Amb ulatory Care Management Comment on above: Transition Of Care ( TCM Hospital Discharge 06/12/22) Start: 06-12-2022 Follow-up encounter Jose Manuel Tracy MD Work Phone: [facility] Start: 06-12-2022 Patient encounter procedure Jose Manuel Tracy MD Work Phone: [facility] Start: 06-11-2022 ambulatory Joyce Sheppard RN IND [employer] Start: 06-11-2022 Follow-up encounter Joyce Sheppard RN Basketball [employer] Management Comment on above: Transition Of Care ( TCM follow-up) Start: 06-10-2022 ambulatory Joyce Sheppard RN IND [employer], Mobile Secretary [employer] Comment on above: Hypoxia (Primary Dx) Start: 06-10-2022 Telemedicine consultation with patient Tammy Winter MD Work Phone: MAIN VIRTUAL VISIT Start: 06-10-2022 Telephone encounter Jennyfer Cain APRN.INDEPENDENT FILM MAKER Work Phone: Cardiology Comment on above: Patient Question Transition Of Care ( TCM initial outreach-dc'd from [facility] 06/07/22) Start: 06-07-2022 Follow-up encounter Jose Manuel Tracy MD Work Phone: [facility] Start: 06-07-2022 Patient encounter procedure Jose Manuel Tracy MD Work Phone: [facility] Start: 06-07-2022 Telephone encounter Anton hobbs APRN.INDEPENDENT FILM MAKER Work Phone: [facility] Cardiology [place] Comment on above: Wound Check Start: 02-14-2022 ambulatory Esther Holt RN Work Phone: [employer] Comment on above: Community Monitoring Outreach ([employer] CDM enrollment 4th attempt) Start: 02-14-2022 Telephone encounter Jennyfer Cain APRN.INDEPENDENT FILM MAKER Work Phone: Cardiology Comment on above: Results Start: 01-31-2022 End: 01-31-2022 ambulatory Respiratory Therapist [facility] Work Phone: Pulmonary Medicine Comment on above: Spirometry Start: 01-31-2022 End: 01-31-2022 Patient encounter procedure Respiratory Therapist [facility] Work Phone: [facility][1] Comment on above: Centrilobular emphys gerardo (HCC) (Primary Dx); Chronic hypoxemic respiratory failure (HCC); History of COVID-19 Start: 01-11-2022 Refill Dioni JALLOH RN.INDEPENDENT FILM MAKER Work Phone: [facility] [place] Comment on above: Refill Request Start: 01-02-2022 Refill Dutch reinoso MD Work Phone: Ambulatory Surgery Comment on above: Refill Request Start: 07-11-2021 End: 07-11-2021 Subsequent hospital visit by physician Xr [facility] Work Phone: Radiology Comment on above: Chronic obstructive pulmonary disease with acute exacerbation (HCC) [J44.1] Start: 06-17-2018 [facility] Facility :[facility] Start: 12-15-2017 End: 12-15-2017 [facility] Facility:[facility] Procedures Date Procedure Procedure Detail Performing Clinician Start: 05-20-2024 Follow-up visit Follow Up TRISHA DOMÍNGUEZ Start: 04-28-2024 PACEMAKER REMOTE CHECK Jose Manuel Tracy MD Work Phone: Start: 03-18-2024 Lipid 1996 panel - S kristy or Plasma Rome Alberto MD Work Phone: Start: 01-21-2024 PACEMAKER CLINIC CHECK Jose Manuel Tracy MD Work Phone: Start: 09-09-2023 INFLUENZA VACCINE, P RSV FREE, AGE 65+ YR, HIGH DOSE, QUADRIVALENT (FLUZONE HIGH-DOSE) Radha Shaikh MD Work Phone: Start: 09-09-2023 [employer] original products COVI D-19 VACCINE ( SEASON) AGE 12+ YR Radha Shaikh MD Work Phone: Start: 08-28-2023 Noninvasive ear/puls [...] w/le ast 12 lds w/i&r Anton Linardi 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 Phone: Start: 06-15-2022 PACEMAKER REMOTE CHECK Jose Manuel Tracy MD Work Phone: Start: 06-12-2022 PACEMAKER CLINIC CHECK Jose Manuel Tracy MD Work Phone: Start: 06-07-2022 PACEMAKER CLINIC CHECK Jose Manuel Wardiy MD Work Phone: Start: 02-11-2022 Adult depression screening assessment Jennyfer Cain 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 Phone: Start: 01-31-2022 Noninvasive ear/puls e oximetry multiple deter Amalia Pritchard PA-C Work Phone: Start: 07-11-2021 Radiologic exam ches t 2 views Lori Podlogar 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 Phone: Start: 12-17-2018 Adult depression screening assessment Dioni Gonsalez 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 Phone: Start: 01-30-2018 Colonoscopy Dioni gonzales 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 Phone: Plan of Treatment Date Care Activity Detail Author Start: 03-18-2029 Lipid panel Lipid Screening [facility] Start: 03-24-2028 Lipid 1996 panel - S kristy or Plasma Lipid Screening [facility] Start: 03-24-2028 Lipid panel Lipid Screening [facility] Start: 03-24-2028 LIPID SCREEN LIPID SCREEN [facility] Start: 06-07-2027 LIPID SCREEN LIPID SCREEN [facility] Start: 03-18-2027 Diabetes Screening Diabetes Screenin [facility] Start: 02-12-2027 LIPID SCREEN LIPID SCREEN [facility] Start: 03-24-2026 DIABETES SCREEN DIABETES SCREEN [facility] Start: 03-24-2026 Diabetes Screening Diabetes Screenin g [facility] Start: 12-20-2025 LIPID SCREEN LIPID SCREEN [facility] Start: 06-12-2025 DIABETES SCREEN DIABETES SCREEN [facility] Start: 06-07-2025 DIABETES SCREEN DIABETES SCREEN [facility] Start: 05-06-2025 Screening for malign ant neoplasm of lung Lung Cancer Screening [facility] Start: 04-26-2025 BP Controlled (<130/80) BP Controlle d (<130/80) [facility] Start: 03-18-2025 Hepatitis B surface antibody level LDL Cholesterol [facility] Start: 03-09-2025 Annual PCP Team Spool Fixer jennifer Disease Visit Annual PCP Team Chronic Disease Visit [facility] Start: 02-12-2025 DIABETES SCREEN DIABETES SCREEN [facility] Start: 11-26-2024 BP Controlled (<130/80) BP Controlle d (<130/80) [facility] Start: 09-24-2024 End: 09-24-2024 Patient encounter procedure 09/24/2024 2:45 PM EST Office Visit Pulmonary Medicine [address] [place] [address] Camila Mohan MD [address] [place] [address] 6MO oV Pulmonary Medicine Comment on above: 6MO oV Start: 09-24-2024 End: 09-24-2024 ambulatory 09/24/2024 2:15 PM EST Procedure [facility]ULM [facility] [address] [place] [address] Wstr, Pulm Lab [facility] [address] [place] [address] 6MO PULM [facility] Comment on above: 6MO Start: 09-09-2024 End: 09-09-2024 Patient encounter procedure 09/09/2024 3:00 PM EST Office Visit [facility] [place] [address] [place] [address] Radha Shaikh MD [address] [place] [address] 6 month follow up [facility] [place] Comment on above: 6 month follow up Start: 09-09-2024 Annual PCP Team Spool Fixer jennifer Disease Visit Annual PCP Team Chronic Disease Visit [facility] Start: 08-28-2024 BP Controlled (<130/80) BP Controlle d (<130/80) [facility] Start: 08-16-2024 End: 08-16-2024 Patient encounter procedure 08/16/2024 2:00 PM EDT Office Visit Pulmonary Medicine [address] [place] [address] Liz Ye APRN.INDEPENDENT FILM MAKER [address] [place] [address] 3 month f/u LCS Pulmonary Medicine Comment on above: 3 month f/u LCS Start: 08-11-2024 End: 08-11-2024 Patient encounter procedure 08/11/2024 8:00 AM EDT Procedure [facility] [address] [place] [address] SJM PM remote/ dr V/ [facility]B [facility] Comment on above: SJM PM remote/ dr V/ [facility] Start: 07-22-2024 End: 07-22-2024 Patient encounter procedure 07/22/2024 2:45 PM EDT Office Visit [facility] [address] [place], [place] [id number] Trisha Henderson APRN.INDEPENDENT FILM MAKER [address] [place], [place] [id number] 2 month follow up [facility] Comment on above: 2 month follow up Start: 06-20-2024 Covid-19 Vaccine ( season) Covid-19 Vaccine ( season) [facility] Start: 06-20-2024 Influenza vaccination Influenza Vacc ine (#1) [facility] Start: 06-07-2024 End: 06-07-2024 Patient encounter procedure 06/07/2024 2:40 PM EDT Office Visit Cardiology [address] [place] [id number] Emery Valdovinos MD [address] [facility], [address] [place] [address] Consult to Cardiology Cardiology Comment on above: Consult to Cardiolog y Start: 05-20-2024 End: 05-20-2024 Patient encounter procedure 05/20/2024 1:45 PM EDT Office Visit [facility] [address] [place] [address] Trisha Henderson APRN.INDEPENDENT FILM MAKER [address] [place] [address] Follow up from Left and Right Genicular RFA [facility] Comment on above: Follow up from Left and Right Genicular RFA Start: 05-06-2024 End: 05-06-2024 Patient encounter procedure 05/06/2024 1:00 PM EDT Appointment Cat Scan [address] [place] [address] Former cigarette smoker [Z87.891] Cat Scan Comment on above: Former cigarette smo ker [Z87.891] Start: 05-02-2024 Urine microalbumin profile [facility] Start: 04-28-2024 End: 04-28-2024 Patient encounter procedure 04/28/2024 8:00 AM EDT Procedure [facility] [address] [place] [address] stjpm/sv/hb [facility] Comment on above: stjpm/sv/hb Start: 04-26-2024 End: 04-26-2024 Patient encounter procedure 04/26/2024 1:00 PM EDT Office Visit Pulmonary Medicine [address] [place] [address] Liz Ye APRN.INDEPENDENT FILM MAKER [address] [place] [address] Stage 3 severe 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 (HCC) [J44.9] Pulmonary Medicine Comment on above: Stage 3 severe 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 (HCC) [J44.9] Start: 04-21-2024 End: 04-21-2024 Admission to same day surgery center 04/21/2024 9:00 AM EDT - 04/21/2024 9:40 AM EDT Surgery LD SURGERY [address] [place] [address] Rome Alberto MD [address] [facility] [address] [place] [address] RADIOFREQUENCY ABLATION PERIPHERAL NERVE LOWER EXTREMITY LD SURGERY Comment on above: RADIOFREQUENCY ABLAT ION PERIPHERAL NERVE LOWER EXTREMITY Start: 04-21-2024 End: 04-21-2024 Dstrj neurolytic agent other peripheral nerve LD OR Start: 04-21-2024 Subsequent hospital visit by physician 04/21/2024 9:00 AM EDT Hospital Encounter LD SURGERY [address] [facility] [place] [address] Rome Alberto MD [address] [facility] [address] [place] [address] Chronic pain of both knees [M25.561, M25.562, G89.29] LD SURGERY Comment on above: Chronic pain of both knees [M25.561, M25.562, G89.29] Start: 03-24-2024 Hepatitis B surface antibody level LDL CHOLESTEROL [facility] Start: 03-19-2024 End: 03-19-2024 Admission to same day surgery center LD SURGERY Comment on above: RADIOFREQUENCY ABLAT ION PERIPHERAL NERVE LOWER EXTREMITY Start: 03-19-2024 End: 03-19-2024 Dstrj neurolytic agent other peripheral nerve LD OR Start: 03-19-2024 Subsequent hospital visit by physician LD SURGERY Comment on above: Chronic pain of both knees [M25.561, M25.562, G89.29] Start: 03-11-2024 ANNUAL PCP TEAM CALL OR CONTACT CENTRE COACH JENNIFER DISEASE VISIT ANNUAL PCP TEAM CHRONIC DISEASE VISIT [facility] Start: 03-09-2024 End: 03-09-2024 Patient encounter procedure 03/09/2024 3:00 PM EDT Office Visit Family [place] [address] [facility] [place] [id number] Radha Shaikh MD [address] [facility] [place] [id number] 6 mo f/u [facility] [place] Comment on above: 6 mo f/u Start: 03-09-2024 End: 06-08-2024 CBC W Auto Differential panel - Blood COMPLETE BLOOD COUNT AND DIFFERENTIAL Lab Routine Essential hypertension Chronic obstructive pulmonary disease, unspecified COPD type (HCC) Expected: 03/09/2024, Expires: 06/08/[address] [facility] Work Phone: Comment on above: Expected: 03/09/2024 , Expires: 06/08/2024 Start: 03-09-2024 End: 06-08-2024 Comprehensive metabolic 2000 panel - Serum or Plasma COMP METABOLIC PANEL Lab Routine Essential hypertension Mixed hyperlipidemia Atherosclerosis of [place] coronary artery of [place] heart without angina pectoris Elevated glucose Expected: 03/09/2024 (Approximate), Expires: 06/08/[address] [facility] Work Phone: Comment on above: Expected: 03/09/2024 (Approximate), Expires: 06/08/2024 Start: 03-09-2024 End: 06-08-2024 Hemoglobin A1c in Blood HGB A1C Lab Routine Elevated glucose Expected: 03/09/2024 (Approximate), Expires: 06/08/[address] [facility] Work Phone: Comment on above: Expected: 03/09/2024 (Approximate), Expires: 06/08/2024 Start: 03-09-2024 End: 06-08-2024 Lipid 1996 panel - Serum or Plasma LIPID PANEL BASIC Lab Routine Essential hypertension Mixed hyperlipidemia Atherosclerosis of [place] coronary artery of [place] heart without angina pectoris Elevated glucose Expected: 03/09/2024 (Approximate), Expires: 06/08/[address] [facility] Work Phone: Comment on above: Expected: 03/09/2024 (Approximate), Expires: 06/08/2024 Start: 02-24-2024 End: 02-24-2024 Patient encounter procedure 02/24/2024 3:15 PM EDT Office Visit Pulmonary Medicine [address] [place] [id number] Camila Mohan MD [address] [place] [address] 3 month follow up Pulmonary Medicine Comment on above: 3 month follow up Start: 01-08-2024 Covid-19 Vaccine () Covid-19 Vaccine () [facility] Start: 12-21-2023 DIABETES SCREEN DIABETES SCREEN [facility] Start: 10-20-2023 Advance Directive Discussion Advance Directive Discussion [facility] Start: 10-20-2023 Behavioral Health Screening Behavioral Health Screening [facility] Start: 10-20-2023 Depression Assessment Depression Ass essment [facility] Start: 09-09-2023 ANNUAL PCP TEAM CALL OR CONTACT CENTRE COACH JENNIFER DISEASE VISIT ANNUAL PCP TEAM CHRONIC DISEASE VISIT [facility] Start: 09-09-2023 BP CONTROLLED (<130/80) BP CONTROLLE D (<130/80) [facility] Start: 09-09-2023 COVID-19 VACCINE (4 - Booster for Moderna series) COVID-19 VACCINE (4 - Booster for Moderna series) [facility] Comment on above: Postponed from 04/09 (Declined at this time) Start: 09-09-2023 COVID-19 VACCINE (4 - Moderna series) COVID-19 VACCINE (4 - Moderna series) [facility] Comment on above: Postponed from 04/09 (Declined at this time) Start: 09-06-2023 BP CONTROLLED (<130/80) BP CONTROLLE D (<130/80) [facility] Start: 07-10-2023 BP CONTROLLED (<130/80) BP CONTROLLE D (<130/80) [facility] Start: 06-20-2023 Covid-19 Vaccine ( season) Covid-19 Vaccine () [facility] Start: 06-20-2023 Influenza vaccination [facility] Start: 06-19-2023 ANNUAL PCP TEAM CALL OR CONTACT CENTRE COACH JENNIFER DISEASE VISIT ANNUAL PCP TEAM CHRONIC DISEASE VISIT [facility] Start: 06-07-2023 Hepatitis B surface antibody level LDL CHOLESTEROL [facility] Start: 02-12-2023 Hepatitis B surface antibody level LDL CHOLESTEROL [facility] Start: 02-11-2023 Adult depression screening assessment DEPRESSION SCREENING [facility] Start: 02-11-2023 ANNUAL PCP TEAM CALL OR CONTACT CENTRE COACH JENNIFER DISEASE VISIT ANNUAL PCP TEAM CHRONIC DISEASE VISIT [facility] Start: 02-11-2023 BP CONTROLLED (<130/80) BP CONTROLLE D (<130/80) [facility] Start: 01-31-2023 BP CONTROLLED (<130/80) BP CONTROLLE D (<130/80) [facility] Start: 01-30-2023 Colonoscopy COLONOSCOPY [facility] Start: 01-30-2023 COLORECTAL CANCER SCREENING COLORECTAL CANCER SCREENING [facility] Start: 01-30-2023 Screening for malign ant neoplasm of colon [facility] Start: 10-20-2022 ADVANCE DIRECTIVE DISCUSSION ADVANCE DIRECTIVE DISCUSSION [facility] Start: 10-20-2022 DEPRESSION ASSESSMENT DEPRESSION ASS ESSMENT [facility] Start: 08-11-2022 ANNUAL PCP TEAM CALL OR CONTACT CENTRE COACH EJNNIFER DISEASE VISIT ANNUAL PCP TEAM CHRONIC DISEASE VISIT [facility] Start: 06-20-2022 Influenza vaccination INFLUENZA (#1) [facility] Start: 06-14-2022 COVID-19 VACCINE (4 - Booster for Moderna series) COVID-19 VACCINE (4 - Booster for Moderna series) [facility] Start: 04-09-2022 COVID-19 VACCINE (4 - Booster for Moderna series) COVID-19 VACCINE (4 - Booster for Moderna series) [facility] Start: 12-20-2021 Hepatitis B surface antibody level LDL CHOLESTEROL [facility] Start: 10-20-2021 ADVANCE DIRECTIVE DISCUSSION ADVANCE DIRECTIVE DISCUSSION [facility] Start: 10-20-2021 DEPRESSION ASSESSMENT DEPRESSION ASS ESSMENT [facility] Start: 07-04-2021 COVID-19 VACCINE (3 - Booster for Moderna series) COVID-19 VACCINE (3 - Booster for Moderna series) [facility] Start: 12-17-2019 Adult depression screening assessment DEPRESSION SCREENING [facility] Start: 11-23-2018 PROSTATE CANCER SCRE ENING DISCUSSION PROSTATE CANCER SCREENING DISCUSSION [facility] Start: 2013 RSV Vaccine (1 - 1-d ose 60+ series) RSV Vaccine (1 - 1-dose 60+ series) [facility] Start: 2013 RSV Vaccine (1 - Ris k 60-74 years 1-dose series) RSV Vaccine (1 - Risk 60-74 years 1-dose series) [facility] Start: 2008 Influenza vaccination LUNG CANCER [facility] Start: 2003 Influenza vaccination LUNG CANCER [facility] Start: 2003 Screening for malign ant neoplasm of lung Lung Cancer Screening [facility] Start: 2003 SHINGRIX VACCINE (1 of 2) LAZO GRIX VACCINE (1 of 2) [facility] Start: 1998 COLOGUARD (FIT-DNA) COLOGUARD (FIT-D NA) [facility] Start: [address] COLONOGRAPHY [facility] Start: 1998 FECAL OCCULT BLOOD FECAL OCCULT BLOO D [facility] Start: 1998 Screening for malign ant neoplasm of colon [facility] Start: 1998 SIGMOIDOSCOPY SIGMOIDOSCOPY [facility] Start: 1971 Anxiety Screening Anxiety Screening [facility] Start: 1971 BP CONTROLLED (<130/80) BP CONTROLLE D (<130/80) [facility] Start: 1971 Depression Screening Depression Scre ening [facility] Start: 1953 ABDOMINAL AORTIC ANE URYSM SCREENING ABDOMINAL AORTIC ANEURYSM SCREENING [facility] Start: 1953 Abdominal aortic ane urysm screening Abdominal Aortic Aneurysm Screening [facility] End: 05-26-2025 CT Chest for screening WO contrast CT LUNG SCREEN WO IVCON Radiology Routine Former cigarette smoker 1 Occurrences starting 04/26/2024 until 05/26/[address] [facility] Work Phone: Comment on above: 1 Occurrences starti ng 04/26/2024 until 05/26/2025 CT Chest for screeni ng WO contrast CT LUNG SCREEN WO IVCON Radiology Routine Former cigarette smoker 05/06/2024 1:[address] [facility] Work Phone: Dstrj neurolytic age nt other peripheral nerve LD OR End: 05-28-2024 Echocardiography ECHO Cardiology Routine Dyspnea and respiratory abnormalities 1 Occurrences starting 05/28/2023 until 05/28/[address] [facility] Work Phone: Comment on above: 1 Occurrences starti ng 05/28/2023 until 05/28/2024 End: 07-20-2023 LUNG DIFFUSION CAPACITY (DLCO) LUNG DIFFUSION CAPACITY (DLCO) PFT Routine Chronic hypoxemic respiratory failure (HCC) 1 Occurrences starting 06/20/2022 until 07/20/[address] [facility] Work Phone: Comment on above: 1 Occurrences starti ng 06/20/2022 until 07/20/2023 LUNG DIFFUSION CAPAC ITY (DLCO) LUNG DIFFUSION CAPACITY (DLCO) PFT Routine Chronic hypoxemic respiratory failure (HCC) 09/06/2022 8:[address] [facility] Work Phone: OXIMETRY - NOCTURNAL OXIMETRY - NOCTURNAL Procedures Routine Centrilobular emphysema (HCC) Chronic hypoxemic respiratory failure (HCC) Ordered: 02/01/[address] [facility] Work Phone: Comment on above: Ordered: 02/01/2022 OXIMETRY - NOCTURNAL OXIMETRY - NOCTURNAL Procedures Routine Dyspnea and respiratory abnormalities Chronic hypoxemic respiratory failure (HCC) Ordered: 05/28/[address] [facility] Work Phone: Comment on above: Ordered: 05/28/2023 OXIMETRY - NOCTURNAL OXIMETRY - NOCTURNAL Procedures Routine Stage 2 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 ([facility]) Chronic hypoxemic respiratory failure (HCC) Ordered: 08/28/[address] [facility] Work Phone: Comment on above: Ordered: 08/28/2023 End: 07-20-2023 OXIMETRY WITH AMBULATION OXIMETRY WITH AMBULATION PFT Routine Chronic hypoxemic respiratory failure (HCC) 1 Occurrences starting 06/20/2022 until 07/20/[address] [facility] Work Phone: Comment on above: 1 Occurrences starti ng 06/20/2022 until 07/20/2023 End: 06-26-2024 OXIMETRY WITH AMBULATION OXIMETRY WITH AMBULATION PFT Routine Chronic hypoxemic respiratory failure (HCC) 1 Occurrences starting 05/28/2023 until 06/26/[address] [facility] Work Phone: Comment on above: 1 Occurrences starti ng 05/28/2023 until 06/26/2024 End: 07-20-2023 SPIROMETRY BASELINE ONLY SPIROMETRY BASELINE ONLY PFT Routine Chronic hypoxemic respiratory failure (HCC) 1 Occurrences starting 06/20/2022 until 07/20/[address] [facility] Work Phone: Comment on above: 1 Occurrences starti ng 06/20/2022 until 07/20/2023 SPIROMETRY BASELINE ONLY SPIROME TRY BASELINE ONLY PFT Routine Chronic hypoxemic respiratory failure (HCC) 09/06/2022 8:[address] [facility] Work Phone: End: 03-25-2025 SPIROMETRY WITH DILATOR IF OBSTRUCTED SPIROMETRY WITH DILATOR IF OBSTRUCTED PFT Routine 1 Occurrences starting 02/24/2024 until 03/25/[address] [facility] Work Phone: Comment on above: 1 Occurrences starti ng 02/24/2024 until 03/25/2025 End: 12-30-2024 XR Knee - bilateral 4 Views XR KNEE GENERAL 4V AP BOTH/PA BOTH/LAT/MERC BILATERAL Radiology Routine Pain in both knees, unspecified chronicity 1 Occurrences starting 12/01/2023 until 12/30/[address] [facility] Work Phone: Comment on above: 1 Occurrences starti ng 12/01/2023 until 12/30/2024 XR Knee - bilateral 4 Views XR KNEE GENERAL 4V AP BOTH/PA BOTH/LAT/MERC BILATERAL Radiology Routine Pain in both knees, unspecified chronicity 12/01/2023 3:[address] [facility] Work Phone: [facility] LD OR Immunizations Immunization Date Immunization Notes Care Provider [facility] 09-09-2023 COVID-19 vaccine, ag e 12+ yr, 2022- season (P[employer]ER-[employer]ush on original products) Radha Shaikh MD Work Phone: [facility] 09-09-2023 influenza (HD-IIV4) vaccine, age 65+ yr, high dose, quadrivalent, PF (FLUZONE HIGH-DOSE) Radha Shaikh MD Work Phone: [facility] 09-09-2023 influenza virus vaccine, unspecified formulation Liz Ye APRN.[employer] Work Phone: [facility] 09-06-2022 influenza, high-dose , quadrivalent vaccine (FLUZONE HIGH DOSE QUADRIVALENT) Respiratory Wstr Work Phone: [facility] 09-06-2022 influenza virus vaccine, unspecified formulation Rem Ck [facility] 02-12-2022 COVID-19 vaccine, ag e 12+ yr ([employer] - [facility]) Jennyfer Cain BODYBUILDER.[facility] Work Phone: [facility] Work Phone: 08-11-2021 influenza, high-dose , quadrivalent vaccine (FLUZONE HIGH DOSE QUADRIVALENT) Dioni Wallace 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 Phone: [facility] 08-11-2021 pneumococcal polysaccharide vaccine, 23 valent Dioni Wallace 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 Phone: [facility] 08-30-2019 influenza, high dose seasonal, preservative-free Dioni Wallace 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 Phone: [facility] Work Phone: 12-17-2018 pneumococcal conjuga te vaccine, 13 valent Dioni Wallace 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 Phone: [facility] 08-20-2018 influenza, high dose seasonal, preservative-free Dioni Wallace 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 Phone: [facility] Work Phone: 07-16-2018 influenza, seasonal, injectable, preservative free Dioni Wallace 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 Phone: [facility] 06-04-2017 influenza, injectabl e, quadrivalent, contains preservative Dioni Wallace 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 Phone: [facility] 05-30-2017 influenza, injectabl e, quadrivalent, preservative free Dioni Wallace 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 Phone: [facility] 09-18-2016 influenza, injectabl e, quadrivalent, contains preservative Dioni Wallace 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 Phone: [facility] 05-02-2014 tetanus toxoid, redu chioma diphtheria toxoid, and acellular pertussis vaccine, adsorbed Dioni Gonsalez APRN.[employer] Work Phone: [facility] Work Phone: 11-09-2010 influenza virus vaccine, unspecified formulation Dioni Gonsalez APRN.[employer] Work Phone: [facility] 08-31-2008 pneumococcal polysaccharide vaccine, 23 valent Dioni Gonsalez APRN.[employer] Work Phone: [facility] Payers Date Payer Category Payer Medicare MMO MEDICARE MMO MEDADVANTAGE O [id number] 2021-Present [phone] [address] [place] [address] [employer] [id number] 2021 Medicare MMO MEDICARE MMO MEDADVANTAGE O [id number] 2021-Present [phone] [address] [place] [address] [employer] [id number] 2021 Unknown [id number] Medicare [id number] Social History Date Type Detail Facility Start: 09-09-2016 End: 04-26-2024 Tobacco smoking status NHIS Ex-smoker [facility] Start: 06-13-1971 End: 06-24-2016 History of tobacco use Current smoker [facility] Start: 06-13-1971 End: 06-24-2016 History of tobacco use Cigarette Smoker [facility] Start: 09-09-2016 End: 03-11-2023 Cigarettes smoked current (pack per day) - Reported 1.5 [facility] Work Phone: Start: 09-09-2016 End: 04-26-2024 Tobacco use and exposure Smokeless tobacco non-user [facility] Start: 12-19-2021 End: 05-20-2024 Alcohol intake Current non-drinker of alcohol (finding) [facility] Start: 09-18-2016 End: 06-19-2022 Tobacco Comment Parent's non smokers. Spouse smokes in home. 12/14/2015 Currently use vape [facility] Start: 1955 Sex Assigned At Not on file [facility] Start: 06-06-2021 End: 09-09-2022 Exposure to SARS-CoV-2 (event) Not sure [facility] Start: 06-18-2022 End: 06-28-2022 Exposure to SARS-CoV-2 (event) Unable to assess [facility] Start: 03-11-2023 End: 05-28-2023 Tobacco use panel [facility] Work Phone: Adult Depression Screening Assessment 6 [facility] Work Phone: Medical Equipment Procedure Code Equipment Code Equipment Origin al Text Equipment Identifier Dates -06/06/2022 [id number] Star t: 06-06-2022 Goals Date Patient Goal Desired Activity /State Personal health goal Comment on above: Formatting of this n ote might be different from the original. Pt Goal is to be able to independently care for himself, perform ADL's, to maintain and Improve movement and mobility. Personal health goal Comment on above: Formatting of this n ote might be different from the original. Pt Goal is to be able to independently care for himself, perform ADL's, to maintain and Improve movement and mobility. Clinical Notes 07-21-2016 to 08-12-2024 Telephone Encounter - Fannie Candelario MA - 08/12/2024 10:12 AM EDTTelephone Encounter - Fannie Candelario MA - 08/12/2024 10:12 AM EDTPTrisha godfrey APRN.[employer]M MAKER - 05/20/2024 1:45 PM EDT Note Date & Type Note Facility 08-12-2024 Telephone encounter Note Faxed. Fannie Candelario MA [facility] 08-12-2024 Miscellaneous Notes Faxed. Fannie Candelario MA Type of letter/form/fax request - Annual Oxygen Prescription Form Form received from fax on 1 floor and placed on MD desk (Dr. Shaikh) for completion. Completed form needs to be faxed to [facility] [phone]. Recent OV note attached. Pt follows with Pulm. Route to [place] when form completed for processing documented in this encounter [facility] 08-09-2024 Telephone encounter Note Type of letter/form/fax request - Annual Oxygen Prescription Form Form received from fax on 1 floor and placed on MD desk (Dr. Shaikh) for completion. Completed form needs to be faxed to [facility] [phone]. Recent OV note attached. Pt follows with Pulm. Route to MA when form completed for processing [facility] 05-20-2024 History of Presen t illness Narrative Images from the original note were not included. [facility] Today's Date: 05/20/2024 Name: Gabriel Sanchez : 1955 Purpose: New Patient Consultation Chief complaint: Bilateral knee pain (right > left) Referring Clinician: Sukhi Borjas MD Pertinent Past Medical History: Ulnar nerve neuropathy, Presence of drug coated stent in right coronary artery, HLD, HTN, S/P placement of cardiac pacemaker, COPD, Tobacco use disorder, History of colon cancer, stage III, TIA, Obesity, Hx-rectal/anal malign, Pertinent Past Surgeries: none History of Present Illness (HPI): 12/31/2023 - Initial HPI (Obtained by Rome Alberto M.D.) - consulted by Ortho for possible Geniculate Ablation/Block DURATION AND ONSET: The pain complaint has been present for approximately many years. The pain had a gradual onset. He reports that there have been discussions that his cartilage might have been damaged by chemotherapy. He is on O2 for COPD. He saw Dr. Borjas in Ortho, who advised non-operative management. RED FLAG SYMPTOMS: denies red flags. PAIN DESCRIPTION: Timing: Constant Character: Aching Primary Location: bilateral knees, right > left Radiation: none Exacerbating factors: Standing, Walking Relieving factors: Sitting, Lying Down Interferes with: physical activity Patient is here today after having a right genicular nerve RFA on 04/21/2024. Patient stating he received 77% relief. Patient stating he did not do the left side and is not sure if he wants to the left knee as he feels it is not feeling as bad. Patient stating he thought that he would be stronger and feel better than he does currently. Patient states the pain is better but he is still weak. Patient stating he is still getting pain but it is not to the extent that it was at. Current Pain Medications: Neuropathics: NSAIDS: Muscle Relaxants: Topicals: Other Prescription or OTC Pain Medications: Asa 81mg Opioids (when applicable): Anti-depressants or Mood-Stabilizers: None Anti-Coagulants: Plavix 75mg Therapies Attended (Current or Most Recent): No Current Therapies 01/01/2024 AG SPINE COMBINATION Questionnaire GREENLIGHT Questionnaire Opiod Risk Tool Completed Date 01/01/2024 Comments Low Risk 0 No question data found. (All drug screens are appropriate unless indicated otherwise) Treatment History: PAIN PROCEDURES: DATE PROCEDURE IMPROVEMENT 04/21/2024 R Gen RFA 70% 01/30/2024 B/L Gen NB 95% relief for right, and he left 80% MEDICATIONS Taken TO DATE (for the chief complaint(s)): Neuropathics: None NSAIDS: None Muscle Relaxants: None Topicals: None Other Prescription or OTC Pain Medications: Tylenol (Acetaminophen), Aspirin Opioids: Oxycodone (eg Percocet) Compliance: PDMP website checked and validated on 05/20/2024 by Trisha Henderson APRN.IN[employer]ENDENT FILM MAKER All prescriptions have been APPROPRIATELY filled. No suspicious activity was identified. 01/01/2024 AG SPINE COMBINATION Questionnaire GREENLIGHT Questionnaire Opiod Risk Tool Completed Date 01/01/2024 Comments Low Risk 0 (All drug screens are appropriate unless indicated otherwise) Risk Assessment: SILVANO-7: 01/01/2024 SILVANO - 7 SCORES Score 4 (0-4) minimal anxiety, (5-9) mild anxiety, (10-14) moderate anxiety, (15-21) severe anxiety PHQ-9: 06/19/2011 02/11/2022 01/01/2024 PHQ-9 Score 1 0 5 (0-4) minimal depression, (5-9) mild depression, (10-14) moderate depression, (15-19) moderately severe depression, (20-27) severe depression Opioid Risk Tool: Family History of Substance Abuse: 0 - No Personal History of Substance Abuse: 0 - No Age between 16-45: 0 - No History of Pre-Adolescence Sexual Abuse: 0 - No Psychological Disease: 0 - No Risk Total: 0 (0-3, low risk or no risk; 4-7, moderate risk, 8+, high risk) Diagnostic Studies: Relevant Imaging: MRI Spine Report No resulted procedures found. X-ray Bilat. Knee 11/2023 RESULT: Tricompartmental osteoarthritis, severe in the medial compartments with [id number] contact, slightly worsened compared to 08/26/2019. Bilateral genu varus and mild lateral tibial translation. Small bilateral joint effusions. No fracture. IMPRESSION: Severe medial compartment predominant osteoarthritis in both knees slightly worse compared to 08/26/2019. X-ray Bilat. Knee 08/2019 RESULT: Severe medial compartment joint space narrowing bilaterally. [id number]-wg-[id number] contact medially on the right. Subchondral sclerosis, osteophytes around the knee joints. Lateral translation tibia in relation to femur bilaterally worse on the right. Minimal genu varus bilaterally. Mild narrowing of patellofemoral joint laterally on the right. Left patellofemoral joint is maintained. Osteophytes at the patellofemoral joint bilaterally. No joint effusion. No fracture. IMPRESSION: DEGENERATIVE JOINT DISEASE MOST SEVERE IN THE MEDIAL COMPARTMENT BILATERALLY AND PROGRESSED BILATERALLY SINCE THE PREVIOUS EXAM. Electrodiagnostic Study (EMG): None Recent Labs: Creatinine Date Value Ref Range Status 03/18/2024 1.01 0.73 - 1.22 mg/dL Final No results found for: EGFR Glucose, Point of Care Date Value Ref Range Status 06/07/2022 180 (A) 74 - 99 mg/dL Final Comment: Location:[facility], [address] [place] [address], [address] The Accu-Chek Inform II glucose meter has not been approved for testing on patients receiving intensive medical intervention or therapy and results from this point of care glucose test should not be used for patient management decisions in these cases. Inaccurate results may also occur from other interfering factors, such as N-acetylcysteine (blood concentrations of greater than 5mg/dL), galactose, extremes of hematocrit (<10 or >65), or high doses of ascorbic acid (vitamin C) greater than 3mg/dL. Consider alternate testing mechanisms (e.g. core lab, blood gas instrument) in the above situations. Current Medications, Past Medical History, Past Surgical History, Family History, Social History and Review of Systems: On today's date, noted above, I have confirmed and edited as necessary, the PFSH and ROS obtained by others. Physical Exam: 05/20/24 1341 Pulse: 68 Resp: 20 SpO2: 93% Physical Exam Vitals reviewed. Constitutional: General: He is not in acute distress. Appearance: He is not ill-appearing. HENT: Head: Normocephalic and atraumatic. Eyes: Conjunctiva/sclera: Conjunctivae normal. Cardiovascular: Pulses: Normal pulses. Pulmonary: Effort: Pulmonary effort is normal. No respiratory distress. Musculoskeletal: Right knee: Crepitus present. Decreased range of motion. Tenderness present over the MCL, LCL, ACL and PCL. Instability Tests: Posterior drawer test positive. Left knee: Crepitus present. Decreased range of motion. Tenderness present over the MCL, LCL, ACL and PCL. Instability Tests: Posterior drawer test positive. Skin: General: Skin is warm and dry. Neurological: Mental Status: He is alert and oriented to person, place, and time. Gait: Gait abnormal (in a wheel chair). Psychiatric: Mood and Affect: Mood and affect normal. Behavior: Behavior normal. Behavior is cooperative. IMPRESSION: 68 year old male presents with complaint(s) of chronic bilateral knee pain, severe knee osteoarthritis noted on imaging. He is on 6L O2 continuously for COPD. Patient wants to hold off on getting a left genicular knee RFA done at this time. We discussed at length physical therapy to see if that would help with strengthening his legs and also with the pain patient is reluctant at this time. Patient agrees to be seen in 2 months to reevaluate. Diagnoses: (M25.561, M25.562, G89.29) Chronic pain of both knees (primary encounter diagnosis) (M17.0) Primary osteoarthritis of both knees PLAN: Gabriel Sanchez would benefit from the following to reach personal goals for decreasing pain, improving function and work participation, and/or improving quality of life: Medications: No Changes - Continue Current Medications Interventional Procedures: none Studies: None Functional Druze: NONE Referrals: No additional considerations at present Follow-up: 2 months Depending on response to the above plan, consider: SPRINT PNS, physical therapy Compliance and Clinic Policies Reviewed and/or Discussed Today: None Attribution: In addition to reviewing the information noted above, some elements copied from my most recent clinical note(s), including the physical exam (completed in entirety today), and the impression and plan sections, have been updated where appropriate. All reflect current medical decision making from today's date. Trisha Henderson APRN.[facility] Review of Systems Constitutional: Negative for activity change, chills, fever and unexpected weight change. Gastrointestinal: Negative for bowel retention or incontinence Genitourinary: Negative for difficulty urinating. Negative for bladder retention or incontinence Musculoskeletal: Positive for arthralgias and back pain. Negative for gait problem, joint swelling, myalgias, neck pain and neck stiffness. Neurological: Negative for weakness, numbness and headaches. Psychiatric/Behavioral: Negative for dysphoric mood, sleep disturbance and suicidal ideas. The patient is nervous/anxious. documented in this encounter [facility] 05-20-2024 Note HNO ID: [id number] Author: TRISHA HENDERSON APRN.[facility] Service: ? Author Type: Nurse Practitioner Type: Progress Notes Filed: 05/20/2024 18:24 Note Text: [facility] Today's Date: 05/20/2024 Name: Gabriel Sanchez : 1955 Purpose: New Patient Consultation Chief complaint: Bilateral knee pain (right > left) Referring Clinician: Sukhi Borjas MD Pertinent Past Medical History: Ulnar nerve neuropathy, Presence of drug coated stent in right coronary artery, HLD, HTN, S/P placement of cardiac pacemaker, COPD, Tobacco use disorder, History of colon cancer, stage III, TIA, Obesity, Hx-rectal/anal malign, Pertinent Past Surgeries: none History of Present Illness (HPI): 12/31/2023 - Initial HPI (Obtained by Rome Alberto M.D.) - consulted by Ortho for possible Geniculate Ablation/Block DURATION AND ONSET: The pain complaint has been present for approximately many years. The pain had a gradual onset. He reports that there have been discussions that his cartilage might have been damaged by chemotherapy. He is on O2 for COPD. He saw Dr. Borjas in Ortho, who advised non-operative management. RED FLAG SYMPTOMS: denies red flags. PAIN DESCRIPTION: Timing: Constant Character: Aching Primary Location: bilateral knees, right > left Radiation: none Exacerbating factors: Standing, Walking Relieving factors: Sitting, Lying Down Interferes with: physical activity Patient is here today after having a right genicular nerve RFA on 04/21/2024. Patient stating he received 77% relief. Patient stating he did not do the left side and is not sure if he wants to the left knee as he feels it is not feeling as bad. Patient stating he thought that he would be stronger and feel better than he does currently. Patient states the pain is better but he is still weak. Patient stating he is still getting pain but it is not to the extent that it was at. Current Pain Medications: Neuropathics: NSAIDS: Muscle Relaxants: Topicals: Other Prescription or OTC Pain Medications: Asa 81mg Opioids (when applicable): Anti-depressants or Mood-Stabilizers: None Anti-Coagulants: Plavix 75mg Therapies Attended (Current or Most Recent): No Current Therapies 01/01/2024 AG SPINE COMBINATION Questionnaire GREENLIGHT Questionnaire Opiod Risk Tool Completed Date 01/01/2024 Comments Low Risk 0 No question data found. (All drug screens are appropriate unless indicated otherwise) Treatment History: PAIN PROCEDURES: DATE PROCEDURE IMPROVEMENT 04/21/2024 R Gen RFA 70% 01/30/2024 B/L Gen NB 95% relief for right, and he left 80% MEDICATIONS Taken TO DATE (for the chief complaint(s)): Neuropathics: None NSAIDS: None Muscle Relaxants: None Topicals: None Other Prescription or OTC Pain Medications: Tylenol (Acetaminophen), Aspirin Opioids: Oxycodone (eg Percocet) Compliance: PDMP website checked and validated on 05/20/2024 by Trisha Henderson APRN.INDEPENDENT FILM MAKER All prescriptions have been APPROPRIATELY filled. No suspicious activity was identified. 01/01/2024 AG SPINE COMBINATION Questionnaire GREENLIGHT Questionnaire Opiod Risk Tool Completed Date 01/01/2024 Comments Low Risk 0 (All drug screens are appropriate unless indicated otherwise) Risk Assessment: SILVANO-7: 01/01/2024 SILVANO - 7 SCORES Score 4 (0-4) minimal anxiety, (5-9) mild anxiety, (10-14) moderate anxiety, (15-21) severe anxiety PHQ-9: 06/19/2011 02/11/2022 01/01/2024 PHQ-9 Score 1 0 5 (0-4) minimal depression, (5-9) mild depression, (10-14) moderate depression, (15-19) moderately severe depression, (20-27) severe depression Opioid Risk Tool: Family History of Substance Abuse: 0 - No Personal History of Substance Abuse: 0 - No Age between 16-45: 0 - No History of Pre-Adolescence Sexual Abuse: 0 - No Psychological Disease: 0 - No Risk Total: 0 (0-3, low risk or no risk; 4-7, moderate risk, 8+, high risk) Diagnostic Studies: Relevant Imaging: MRI Spine Report No resulted procedures found. X-ray Bilat. Knee 11/2023 RESULT: Tricompartmental osteoarthritis, severe in the medial compartments with rzxh-rb-pedr contact, slightly worsened compared to 08/26/2019. Bilateral genu varus and mild lateral tibial translation. Small bilateral joint effusions. No fracture. IMPRESSION: Severe medial compartment predominant osteoarthritis in both knees slightly worse compared to 08/26/2019. X-ray Bilat. Knee 08/2019 RESULT: Severe medial compartment joint space narrowing bilaterally. Mqdk-xc-hfau contact medially on the right. Subchondral sclerosis, osteophytes around the knee joints. Lateral translation tibia in relation to femur bilaterally worse on the right. Minimal genu va (more content not included)... [facility] 05-20-2024 Note HNO ID: [id number] Author: VIKTORIA ROBLES LPN Service: ? Author Type: LICENSED NURSE Type: Progress Notes Filed: 05/20/2024 18:24 Note Text: Review of Systems Constitutional: Negative for activity change, chills, fever and unexpected weight change. Gastrointestinal: Negative for bowel retention or incontinence Genitourinary: Negative for difficulty urinating. Negative for bladder retention or incontinence Musculoskeletal: Positive for arthralgias and back pain. Negative for gait problem, joint swelling, myalgias, neck pain and neck stiffness. Neurological: Negative for weakness, numbness and headaches. Psychiatric/Behavioral: Negative for dysphoric mood, sleep disturbance and suicidal ideas. The patient is nervous/anxious. [facility] 05-12-2024 Telephone encounter Note Left message for pt to schedule 3 mos and follow up LDCT Lung Screen Results LungRADS category: 4B Incidentals: CAC-S/P PCI Recommendations: Continue annual screening with LDCT in 12 months. Liz Ye APRN.[facility] May 12, 2024 2:23 PM [facility] 05-12-2024 Miscellaneous Notes Left message for pt to schedule 3 mos and follow up LDCT Lung Screen Results LungRADS category: 4B Incidentals: CAC-S/P PCI Recommendations: Continue annual screening with LDCT in 12 months. Liz Ye APRN.CNP May 12, 2024 2:23 PM documented in this encounter [facility] 05-06-2024 History of Presen t illness Narrative Radiology Service Progress Note PATIENT NAME: Gabriel Sanchez DATE OF SERVICE: May 06, 2024 TIME: 2:35 PM PATIENT IDENTITY VERIFICATION COMPLETED USING TWO (2) IDENTIFIERS: Name and Date of confirmed by patient verbally. FALL SCREENING: Has the patient had 2 falls in the last year or 1 fall with injury or currently using an Ambulatory Assistive Device (Walker, Cane, Wheelchair, Crutches, etc.)? No PATIENT GENDER DATA: Male PATIENT RELEVANT IMPLANT DATA REVIEWED: Not Applicable PATIENT PRESENTS WITH AN IMPLANTABLE OR ATTACHED ALLIANCES CONSULTANT: No RADIOLOGY DEPARTMENT: CT; Exam(s) Completed: Lung Screening PERIPHERAL IV DATA: Not applicable SIGNED BY: RT Adeel(Nickolas) May 06, 2024 2:35 PM documented in this encounter [facility] 05-06-2024 Note HNO ID: [id number] Author: VANDANA IVAN RT(Nickolas) Service: ? Author Type: Crop Or Livestock Tenant Farmer Type: Progress Notes Filed: 05/06/2024 14:35 Note Text: Radiology Service Progress Note PATIENT NAME: Gabriel Sanchez DATE OF SERVICE: May 06, 2024 TIME: 2:35 PM PATIENT IDENTITY VERIFICATION COMPLETED USING TWO (2) IDENTIFIERS: Name and Date of confirmed by patient verbally. FALL SCREENING: Has the patient had 2 falls in the last year or 1 fall with injury or currently using an Ambulatory Assistive Device (Walker, Cane, Wheelchair, Crutches, etc.)? No PATIENT GENDER DATA: Male PATIENT RELEVANT IMPLANT DATA REVIEWED: Not Applicable PATIENT PRESENTS WITH AN IMPLANTABLE OR ATTACHED ALLIANCES CONSULTANT: No RADIOLOGY DEPARTMENT: CT; Exam(s) Completed: Lung Screening PERIPHERAL IV DATA: Not applicable SIGNED BY: BOLIVAR Denis) May 06, 2024 2:35 PM [facility] 04-26-2024 Instructions Liz Ye APRN.[facility] - 04/26/2024 1:[address] Lung Screen Results The CT scan that you will have done will show if you have any nodules (small spots) in your lungs that are suspicious for cancer. Around 90% of the patients who have this scan done are found to have at least one nodule. Most nodules are benign (not cancer) and of no harm to you at all. A specialist will make a scientific evaluation about whether or not a nodule is worrisome based on its size and shape. The radiologist who will read your scan will put it into one of four categories: LUNG-RADS Category Description Overall Probability of Malignancy Recommended Follow-Up 1 Negative No nodules and definitely benign (non-cancerous nodules) Essentially 0. 1 Year - Follow-up Low dose CT 2 Benign Appearance or Behavior Nodules with a very low likelihood of becoming cancer due to size or lack of growth Less than 1% 1 Year - Follow-up Low dose CT 3 Probably Benign Probably benign finding, short term follow-up recommended 1 to 2% 6 Months - Follow-up Low dose CT 4 Suspicious Findings for which additional diagnostic testing and/or biopsy is recommended Will be calculated based on nodule characteristics. Dependent on what is seen on the exam. (3 month follow-up CT, PET-CT, or biopsy) 0 Incomplete Findings suggestive of an inflammatory or infectious process AND/OR part of the lung cannot be evaluated Additional lung cancer screening CT imaging needed AND/OR comparison with prior chest CT imaging At times, we may see something outside of the lungs on the scan that could be a health concern. Below are some of the most common findings: S Clinically Significant or Potentially Clinically Significant Findings (non lung cancer) Referral or additional imaging/labs depending on result. Approximately 10% of people receive this result. Coronary Artery Calcifications (Moderate or Severe) - Referral to cardiology for further work-up and recommendations. Thyroid Nodule - TSH level and Thyroid Ultrasound dependent on size, referral to endocrinology. Adrenal Nodule - blood work and referral to endocrinology. Others Lung Cancer Screening hotline: [phone] Lung Cancer Screening [phone] Billing Questions: or [email or web address] Specialist Providers: (Debra Acosta PA-C; Purvi Waters CNP; Jane Ramirez CNP, Lisa Campbell CNP; Vandana Arriola CNP; Hillary Ames PA-C; Liz Ye CNP; Aisha Lackey CNP; Mary Perales CNP; Tona Parekh CNP; Sunitha Zuñiga PA-C; Idalia Cutler PA-C; Darlene Bernstein CNP; Dipti Camarillo CNP; Luna De Jesus CNP): [phone] documented in this encounter [facility] 04-26-2024 Note HNO ID: [id number] Author: LIZ YE APRN.CNP Service: ? Author Type: Nurse Practitioner Type: Progress Notes Filed: 04/26/2024 16:16 Note Text: LUNG SCREENING VISIT PRIMARY CARE PHYSICIAN: Radha Shaikh MD PULMONARY PROVIDER: Dr. Hari Mohan Results will be communicated via letter or electronic record if applicable. Visit Delivery: In Person Patient Visit Type: New to Screening Current or Ex-smoker? Ex Exam Type: baseline LDCT Number of Pack Years: 76.5 Current smoker (=0) or Number of Years since Quit: 8 REQUESTER: The referring provider advised the patient to have screening. HISTORY OF PRESENT ILLNESS: Gabriel Sanchez is a 68 year old Former smoker who presents for lung screening. 2010 colon cancer treated with chemotherapy. Respiratory symptoms include: SOB: Yes with everything Chest tightness: No Coughing: Yes: With mucus Clear Hemoptysis: No Wheezing: No Fever/Chills: No Recent Respiratory Infection: No Unintentional weight loss: No Last 6 Encounter Wt Readings: Date: Wt: 04/26/2024 109.3 kg (241 lb) 03/09/2024 109.7 kg (241 lb 14.4 oz) 02/24/2024 110.7 kg (244 lb) 01/01/2024 108 kg (238 lb) 11/26/2023 108 kg (238 lb) 09/09/2023 110.3 kg (243 lb 3.2 oz) ECOG PERFORMANCE STATUS: 2- Ambulatory and capable of all selfcare; unable to carry out work activities. Up and about > 50% of waking hrs. Modified Medical [employer] [place] Dyspnea Scale (MMRC) I stop for breath after walking about 100 yards or after a few minutes on level ground 3 PAST MEDICAL HISTORY Diagnosis Date Abdominal pain, [...] w Oxaliplatin (stopped for neuropathy) and 5FU Pacemaker PFO (patent foramen ovale) Pneumonia, organism unspecified(486) [...] Transluminal Coronary Angio Status SKIN BIOPSY HX FAMILY HISTORY Problem Relation Age of Onset Heart Mother IA other (chf) Mother Heart Father IA Heart disease Brother Heart disease Brother Heart Brother IA Heart Brother IA other (heart murmur) Daughter other (CTS) No Family History clopidogrel (PLAVIX) 75 mg tabletTake 1 tablet by mouth once daily.Disp: 90 tabletRfl: 3 nitroglycerin sublingual (NITROSTAT) 0.4 mg SL tabletDissolve 1 tablet under the tongue every 5 minutes as needed.Disp: 25 tabletRfl: 3 ipratropium 20 mcg-albuterol 100 mcg (COMBIVENT RESPIMAT) 20-100 mcg/actuation inhalerInhale 1 Puff as instructed four times a day as needed.Disp: 1 EachRfl: 5 ukfitllajh-dydbpguk-adhpqgbior (BREZTRI AEROSPHERE) 160-9-4.8 mcg/actuation HFA aerosol inhalerInhale 2 Puffs as instructed two times a day.Disp: 1 EachRfl: 5 lovastatin 40 mg tabletTake 1 tablet by mouth daily at bedtime. For cholesterol.Disp: 90 tabletRfl: 3 lisinopril (ZESTRIL) 5 mg tabletTake 1 tablet by mouth once daily.Disp: 90 tabletRfl: 3 metoprolol succinate ER (TOPROL XL) 50 mg 24 hr tabletTake 1 tablet by mouth once daily.Disp: 90 tabletRfl: 3 aspirin, enteric coated (ASPIRIN, ENTERIC COATED) 81 mg EC tabletTake 1 tablet by mouth once daily.Disp: Rfl: ALLERGIES No Known Allergies The medications and allergies were reviewed and reconciled for this p (more content not included)... [facility] 04-26-2024 History of Presen t illness Narrative Images from the original note were not included. LUNG SCREENING VISIT PRIMARY CARE PHYSICIAN: Radha Shaikh MD PULMONARY PROVIDER: Dr. Hari Mohan Results will be communicated via letter or electronic record if applicable. Visit Delivery: In Person Patient Visit Type: New to Screening Current or Ex-smoker? Ex Exam Type: baseline LDCT Number of Pack Years: 76.5 Current smoker (=0) or Number of Years since Quit: 8 REQUESTER: The referring provider advised the patient to have screening. HISTORY OF PRESENT ILLNESS: Gabriel Sanchez is a 68 year old Former smoker who presents for lung screening. 2010 colon cancer treated with chemotherapy. Respiratory symptoms include: SOB: Yes with everything Chest tightness: No Coughing: Yes: With mucus Clear Hemoptysis: No Wheezing: No Fever/Chills: No Recent Respiratory Infection: No Unintentional weight loss: No Last 6 Encounter Wt Readings: Date: Wt: 04/26/2024 109.3 kg (241 lb) 03/09/2024 109.7 kg (241 lb 14.4 oz) 02/24/2024 110.7 kg (244 lb) 01/01/2024 108 kg (238 lb) 11/26/2023 108 kg (238 lb) 09/09/2023 110.3 kg (243 lb 3.2 oz) ECOG PERFORMANCE STATUS: 2- Ambulatory and capable of all selfcare; unable to carry out work activities. Up and about > 50% of waking hrs. Modified Medical Research [place] Dyspnea Scale (MMRC) I stop for breath after walking about 100 yards or after a few minutes on level ground 3 PAST MEDICAL HISTORY Diagnosis Date Abdominal pain, left lower quadrant Acute myocardial infarction of other specified sites, episode of care unspecified 2003 Myocardial Infarction Asthma Benign neoplasm of rectum and anal canal Chronic hypoxemic respiratory failure (HCC) 08/24/2021 Colon cancer (HCC) 10/20/2010 COPD (chronic obstructive pulmonary disease) ([facility]) [address] Alfonso Coronary artery disease Diverticulitis Diverticulitis of colon (without mention of hemorrhage)(562.11) Hernia Hyperlipidemia, mixed Hypertension Impaired glucose tolerance Malignant neoplasm of colon, unspecified site 10/2010 Rx w Oxaliplatin (stopped for neuropathy) and 5FU Pacemaker PFO (patent foramen ovale) Pneumonia, organism unspecified(486) [...] Transluminal Coronary Angio Status SKIN BIOPSY HX FAMILY HISTORY Problem Relation Age of Onset Heart Mother IA other (chf) Mother Heart Father IA Heart disease Brother Heart disease Brother Heart Brother IA Heart Brother IA other (heart murmur) Daughter other (CTS) No Family History clopidogrel (PLAVIX) 75 mg tablet^Take 1 tablet by mouth once daily.^Disp: 90 tablet^Rfl: 3 nitroglycerin sublingual (NITROSTAT) 0.4 mg SL tablet^Dissolve 1 tablet under the tongue every 5 minutes as needed.^Disp: 25 tablet^Rfl: 3 ipratropium 20 mcg-albuterol 100 mcg (COMBIVENT RESPIMAT) 20-100 mcg/actuation inhaler^Inhale 1 Puff as instructed four times a day as needed.^Disp: 1 Each^Rfl: 5 oqjdhfbxgc-bvbqtbwn-yyhjlhvlqc (BREZTRI AEROSPHERE) 160-9-4.8 mcg/actuation HFA aerosol inhaler^Inhale 2 Puffs as instructed two times a day.^Disp: 1 Each^Rfl: 5 lovastatin 40 mg tablet^Take 1 tablet by mouth daily at bedtime. For cholesterol.^Disp: 90 tablet^Rfl: 3 lisinopril (ZESTRIL) 5 mg tablet^Take 1 tablet by mouth once daily.^Disp: 90 tablet^Rfl: 3 metoprolol succinate ER (TOPROL XL) 50 mg 24 hr tablet^Take 1 tablet by mouth once daily.^Disp: 90 tablet^Rfl: 3 aspirin, enteric coated (ASPIRIN, ENTERIC COATED) 81 mg EC tablet^Take 1 tablet by mouth once daily.^Disp: ^Rfl: ALLERGIES No Known Allergies The medications and allergies were reviewed and reconciled for this patient and deemed current. Lung Cancer Risk Factors: 1.Tobacco Use: Start Age 10, Quit Age: 61, Average packs per day 1.5, Pack Years 76.5 2. Passive Smoke Exposure: Yes, as a Child and as an Adult 3. Personal hx of malignancy: Yes, Type of Cancer: Other smoking-related cancers, Colorectal cancer 4. 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 Race: White 6. Education: Less than High School 7. BMI:Body mass index is 36.64 kg/m . Patient-entered Height: 5'8 Patient-entered Weight: 241 pounds 8. COPD: Yes 9. Pneumonia in the past 5 years: No 10. Is there a history of lung cancer in a first degree relative? No 11. Is there a history of lung cancer in a non-first degree relative? No 12. Is there a history of any other cancer in a first degree relative? No Health Maintenance Immunization History Administered Date(s) Administered COVID-19 original vaccine, age 12+ yr, monovalent ([employer] - SCHWARTZ TOP) 02/12/2022 COVID-19 original vaccine, full dose, monovalent (MODERNA) 01/04/2021 02/01/2021 COVID-19 vaccine, age 12+ yr, 2022- season ([employer] on original products) 09/09/2023 influenza (HD-IIV3) vaccine, age 65+ yr, high dose, PF (FLUZONE HIGH-DOSE) 08/20/2018 08/30/2019 influenza (HD-IIV4) vaccine, age 65+ yr, high dose, quadrivalent, PF (FLUZONE HIGH-DOSE) 08/11/2021 09/06/2022 09/09/2023 influenza (IIV3) vaccine, trivalent, PF (AFLURIA, FLUARIX, FLULAVAL, FLUVIRIN, FLUZONE) 07/16/2018 influenza (IIV4) vaccine, age 6 mo - 64 yr, quadrivalent (AFLURIA, FLULAVAL, FLUZONE) 09/18/2016 06/04/2017 influenza (IIV4) vaccine, age 6 mo - 64 yr, quadrivalent, PF (AFLURIA, FLUARIX, FLULAVAL, FLUZONE) 05/30/2017 influenza vaccine, unspecified formulation 11/09/2010 pneumococcal conjugate (PCV13) vaccine, 13 valent (PREVNAR 13) 12/17/2018 pneumococcal polysaccharide (PPV23) vaccine, 23 valent (PNEUMOVAX 23) 08/31/2008 08/11/2021 tetanus diphtheria pertussis (Tdap) vaccine, age 7+ yr (ADACEL, BOOSTRIX) 05/02/2014 Colonoscopy: 01/30/2018 Mammogram: DATA REVIEW I have directly visualized the testing documented: Prior Imaging: Last CT/CTA Chest/Lungs CT CHEST W IVCON PE Exam End: 06/11/2022 10:18 PM (Final result) Narrative: * * *Final Report* * * DATE OF EXAM: Jun 11 2022 10:18PM [facility] 0540 - CT CHEST W IVCON PE / PROCEDURE REASON: Pulmonary embolism (PE) suspected, high prob * * * * Physician Interpretation * * * * EXAMINATION: CHEST CT WITH CONTRAST (PULMONARY EMBOLISM PROTOCOL) CLINICAL HISTORY: Pulmonary embolism (PE) suspected, high prob shortness of breath Technique: Spiral CT acquisition of the chest from the thoracic inlet to the upper abdomen following IV contrast. Axial 1 and 3 mm thick slices plus coronal and sagittal reformatted images. MQ: CTCP_5 Contrast: 100 mL Omnipaque [address] Radiation dose: Integrated Dose-length product (DLP) for this visit = 454 mGy*cm CT Dose Reduction Employed: mAs-kVp adjusted based on patient size-age Comparison: No relevant prior studies available. RESULT: [...] No abnormality in the imaged upper abdomen. Cobol Application Developer (topogram) images: No additional findings. Impression: IMPRESSION: No CT evidence of pulmonary embolism. No evidence of acute intrathoracic pathology. Meat Molder: RAYSHAWN Transcribe Date/Time: Jun 11 2022 10:31P Dictated by : MORALES MARQUES MD This examination was interpreted and the report reviewed and electronically signed by: MORALES MARQUES MD on Jun 11 2022 10:46PM EST Last CT Chest - Impression Only CT CHEST W IVCON PE Exam End: 06/11/2022 10:18 PM (Final result) Impression: IMPRESSION: No CT evidence of pulmonary embolism. No evidence of acute intrathoracic pathology. Meat Molder: RAYSHAWN ... Last XR Chest - Impression Only XR CHEST 2V FRONTAL/LAT Exam End: 06/11/2022 6:05 PM (Final result) Impression: IMPRESSION: Stable chest x-ray. ... Pulmonary Function Testing: SPIROMETRY BASELINE ONLY ([id number]) - ordered on 09/06/22 No textual results for order. PHYSICAL EXAM: BP 112/64 Pulse 71 Resp 17 Wt 109.3 kg (241 lb) SpO2 94% BMI 36.64 kg/m Deferred ASSESSMENT and RECOMMENDATIONS: 1. Screening for lung cancer: Six year risk for lung cancer: 11.02% I have determined that the patient is eligible for a low dose CT based on age, absence of signs or symptoms of lung cancer, and total pack years: Yes. The patient and I engaged in shared decision making, including the use of one or more decision aids, to include benefits, harms, follow-up diagnostic testing, over-diagnosis, false positive rate, and total radiation exposure. The patient understands and feels comfortable with it: Yes. The patient was counseled on the importance of adherence to annual LDCT lung cancer screening, impact of comorbidities and ability or willingness to undergo diagnosis and treatment. The patient understands and feels comfortable with it:Yes. 2. Nicotine dependence: The patient was counseled on the importance of maintaining cigarette smoking abstinence - The patient is committed to remaining abstinent from tobacco. Liz Ye APRN.CNP NPI #: April [id number], [id number] 1:40 PM documented in this encounter [facility] 04-07-2024 Telephone encounter Note From the physician perspective, I have no problem with this since we are planning to treat both eventually. [place] Alberto III, MD, MBA [facility] 04-07-2024 Miscellaneous Notes From the physician perspective, I have no problem with this since we are planning to treat both eventually. [place] Alberto III, MD, MBA I spoke with the patient and he is wondering if he can get the right genicular RFA performed before the left. I advised the patient I would send a message over to our RN at [place] and to Dr Alberto. Patient would also schedule his left genicular RFA on May 26. Advised patient I would also send a message to get him on the schedule. Tomasa Dominguez Roslyn to Dr. [place] Alberto MD / Trisha Henderson CNP, APRN [facility] [place] [address] [place] [address] Phone. [phone] / Fax. [phone] ----- Message from Alonzo Sanchez sent at 04/07/2024 11:18 AM EDT ----- Regarding: Spine & Pain / [place] Alberto MD / Ablation Patient: Gabriel Sanchez Date of : 1955 Primary Care Provider: Radha Shaikh MD Patient has been identified by name and Date of (Y/N): y Patient: Gabriel Sanchez Date of : 1955 Provider for this encounter: Radha Shaikh MD Reason for the call/escalation: Pt called in to check with office if ablation that is currently scheduled for pt on 04/21 could changed from left lower extremity to right lower extremity, as the right knee hurts more at this time per pt. Pt requested call back from office regarding this matter. Was Patient Referred to [facility]/Seek Emergency Treatment (Y/N): n Did Patient Agree (Y/N): n Was An Attempt Made To Transfer The Patient To The Office (Y/N): n Were You Able To Reach Someone At The Office (Y/N): n If Yes - Patient Was Transferred To (Caregivers Name): n If No - Which [facility] Leadership Nitroglycerin Supervisor Did You Speak With Regarding This Patient: n Was an appointment scheduled (Y/N): n Reason patient was requesting visit (RFV/signs and symptoms/diagnosis) : procedure/ablation Person calling if other than patient: self Return call to if other than patient: n Best contact number: [phone] Thank you, Alonzo Sanchez April 07, 2024 11:18 AM documented in this encounter [facility] 04-07-2024 Telephone encounter Note I spoke with the patient and he is wondering if he can get the right genicular RFA performed before the left. I advised the patient I would send a message over to our RN at [place] and to Dr Alebrto. Patient would also schedule his left genicular RFA on May 26. Advised patient I would also send a message to get him on the schedule. Tomasa Dominguez Day Treatment Clinician/Art Therapist to Dr. [place] Alberto MD / Trisha Henderson CNP BODYBUILDER [facility] [place] [address] [address] Phone. [phone] / Fax. [phone] [facility] 04-07-2024 Telephone encounter Note ----- Message from Alonzo Sanchez sent at 04/07/2024 11:18 AM EDT ----- Regarding: Spine & Pain / [place] Alberto MD / Ablation Patient: Gabriel Sanchez Date of : 1955 Primary Care Provider: Radha Shaikh MD Patient has been identified by name and Date of (Y/N): y Patient: Gabriel Sanchez Date of : 1955 Provider for this encounter: Radha Shaikh MD Reason for the call/escalation: Pt called in to check with office if ablation that is currently scheduled for pt on 04/21 could changed from left lower extremity to right lower extremity, as the right knee hurts more at this time per pt. Pt requested call back from office regarding this matter. Was Patient Referred to [facility] Emergency Treatment (Y/N): n Did Patient Agree (Y/N): n Was An Attempt Made To Transfer The Patient To The Office (Y/N): n Were You Able To Reach Someone At The Office (Y/N): n If Yes - Patient Was Transferred To (Caregivers Name): n If No - Which [facility] Nitroglycerin Supervisor Did You Speak With Regarding This Patient: n Was an appointment scheduled (Y/N): n Reason patient was requesting visit (RFV/signs and symptoms/diagnosis) : procedure/ablation Person calling if other than patient: self Return call to if other than patient: n Best contact number: [phone] Thank you, Alonzo Sanchez April 07, 2024 11:18 AM [facility] 04-06-2024 Telephone encounter Note Patient has left a voicemail about his appointments. I have attempted to contact this patient by phone, Left brief message on cell voicemail stating to give us a call back at [phone]. Richa Gutierres [facility] 04-06-2024 Miscellaneous Notes Patient has left a voicemail about his appointments. I have attempted to contact this patient by phone, Left brief message on cell voicemail stating to give us a call back at [phone]. Richa Gutierres documented in this encounter [facility] 03-16-2024 Telephone encounter Note Received email that patient's right genicular RFA scheduled for 03/19/2024 was cancelled as it is still pending approval by insurance. Left message for patient to return call to reschedule. Patient's right genicular RFA is currenly scheduled for 04/21/24 and if patient wanted to keep appointment in [place], next available would be May 26 Tomasa Dominguez Day Treatment Clinician/Art Therapist to Dr. [place] Alberto MD / Trisha Henderson CNP [facility] [place] [address] [facility] [address] [address] Phone. [phone] / Fax. [phone] [facility] 03-16-2024 Miscellaneous Notes Received email that patient's right genicular RFA scheduled for 03/19/2024 was cancelled as it is still pending approval by insurance. Left message for patient to return call to reschedule. Patient's right genicular RFA is currenly scheduled for 04/21/24 and if patient wanted to keep appointment in [place], next available would be May 26 Tomasa Dominguez Day Treatment Clinician/Art Therapist to Dr. [place] Alberto MD / Trisha Henderson CNP [facility] [place] [address] [facility] [address] [place] [address] Phone. [phone] / Fax. [phone] documented in this encounter [facility] 03-12-2024 Note HNO ID: [id number] Author: ROME ALBERTO MD Service: Pain Management Author Type: Physician Type: Operative Report Filed: 03/18/2024 07:55 Note Text: Procedure cancelled. [facility] 03-12-2024 Note HNO ID: [id number] Author: ROME ALBERTO MD Service: Pain Management Author Type: Physician Type: H&P Filed: 03/18/2024 07:55 Note Text: Procedure cancelled [facility] 03-09-2024 History of Presen t illness Narrative Chief Complaint Patient presents with: 6 Month Exam HPI Gabriel Sanchez is a 68 year old male who presents here today for 6 month follow up. No bowel, Gi, or urinary issues. Pt asking if his RBC level is low as he read that SOB can be caused by low RBC count.CBC was checked a year ago and was normal. Will recheck with labs that pt gets done. Pain: Chronic; follows with Pain Management Dr. Alberto. Dr. Alberto has pt scheduled to get some nerves burned for relief of knee pain. He has some middle back pain off and on x 3 weeks, sharp pains. He has used some Tylenol Arthritis. No heat or ice. No injury. He wonders if he has a pinched nerve. He gets cramps to ankles, feet, hands, arms. His thumbs and fingers cramp up a lot especially when biting fingernails. No cramps to the calves or thighs. Has cramps somewhere daily. COPD: Follows with [facility] and is currently taking Combivent Respimat QID prn and Breztri 160-9-4.8 2 puffs bid. Does check O2 at home 12/05. Does have Oxygen concentrator that he uses at night at 6 L. Uses Mucinex occasionally, due to coughing stuff up. O2 dries up his sinuses. He does check his pulse ox and pulse at home. When he is resting his pulse ox reading is around 97%-100%. He states that if he doesn't have oxygen on it will go down 85%. He states his O2 level is better with the oxygen. HTN/Lipid/CAD: Does not check BP at home. Follows with [facility]. He would like to stay within [facility], has appt to see Dr. Valdovinos in May. Taking Plavix 75 mg daily, Losartan 40 mg daily, Lisinopril 5 mg daily, Aspirin 81 mg daily and Toprol xl 50 mg daily. No chest pains or dizziness, no unusual SOB. Past medical history, appointments, medications, allergies reviewed. Previous Medical History PAST MEDICAL HISTORY Diagnosis Date Abdominal pain, left lower quadrant Acute myocardial infarction of other specified sites, episode of care unspecified 2003 Myocardial Infarction Asthma Benign neoplasm of rectum and anal canal Chronic hypoxemic respiratory failure (HCC) 08/24/2021 Colon cancer (HCC) 10/20/2010 COPD (chronic obstructive pulmonary disease) (HCC) [address] Alfonso Coronary artery disease Diverticulitis Diverticulitis of colon (without mention of hemorrhage)(562.11) Hernia Hyperlipidemia, mixed Hypertension Impaired glucose tolerance Malignant neoplasm of colon, unspecified site 10/2010 Rx w Oxaliplatin (stopped for neuropathy) and 5FU Pacemaker PFO (patent foramen ovale) Pneumonia, organism unspecified(486) [...] Problem Relation Age of Onset Heart Mother IA other (chf) Mother Heart Father IA Heart disease Brother Heart disease Brother Heart Brother IA Heart Brother IA other (heart murmur) Daughter other (CTS) No Family History Patient Allergies ALLERGIES No Known Allergies Current Medications Current Outpatient Medications on File Prior to Visit Medication Sig clopidogrel (PLAVIX) 75 mg tablet Take 1 tablet by mouth once daily. nitroglycerin sublingual (NITROSTAT) 0.4 mg SL tablet Dissolve 1 tablet under the tongue every 5 minutes as needed. ipratropium 20 mcg-albuterol 100 mcg (COMBIVENT RESPIMAT) 20-100 mcg/actuation inhaler Inhale 1 Puff as instructed four times a day as needed. hkuinknlgy-ocjrhnda-exvwbuxoua (BREZTRI AEROSPHERE) 160-9-4.8 mcg/actuation HFA aerosol inhaler Inhale 2 Puffs as instructed two times a day. lovastatin 40 mg tablet Take 1 tablet by mouth daily at bedtime. For cholesterol. lisinopril (ZESTRIL) 5 mg tablet Take 1 tablet by [...] vape Vaping Use Vaping Use: Former Substances: States no tobacco in the device but tastes like tobacco Substance Use Topics Alcohol use: No Drug use: Not Currently Types: Marijuana EXAM: BP 128/80 Pulse 78 Resp 16 Wt 109.7 kg (241 lb 14.4 oz) SpO2 98% BMI 36.78 kg/m General Appearance: Well appearing, alert, in no acute distress, well-hydrated, well nourished. and Obese. Lungs: Lungs clear to auscultation. No wheezing, rhonchi, rales.. Heart: RRR without murmur, gallop, or rubs. No ectopy. Health Maintenance List Abdominal Aortic Aneurysm Screening Never done BP Controlled (<130/80) Never done Lung Cancer Screening Never done Shingrix Vaccine(1 of 2) Never done RSV Vaccine(1 - 1-dose 60+ series) Never done Colorectal Cancer Screening due on 01/30/2023 Advance Directive Discussion Never done Covid-19 Vaccine( season) due on 01/08/2024 LDL Cholesterol due on 03/24/2024 DTaP,Tdap,Td Vaccine(2 - Td or Tdap) due on 05/02/2024 Annual PCP Team Chronic Disease Visit due on 09/09/2024 Diabetes Screening due on 03/24/2026 Lipid Screening due on 03/24/2028 Alpha-1 Antitrypsin Deficiency Screening Completed Spirometry Completed Influenza Vaccine Completed Behavioral Health Screening Completed Hepatitis C Screening Completed Pneumococcal Vaccine: 65+ Completed Data reviewed none ASSESSMENT/PLAN: 1. Essential hypertension - ICD9: 401.9, ICD10: I10 (primary diagnosis) - Controlled - Continue current medications - Recommend home blood pressure monitoring, to bring results to next visit - Encouraged sodium restriction, DASH or Mediterranean diet - Recommend regular aerobic exercise - Discussed need for and benefit of weight loss. BMI 36.78 kg/(m^2) 2. Atherosclerosis of [place] coronary artery of [place] heart without angina pectoris - ICD9: 414.01, ICD10: I25.10 Continue current medications. 3. Mixed hyperlipidemia - ICD9: 272.2, ICD10: E78.2 - Control undetermined, due for labs - Continue current medications - Counseled on healthy diet and regular exercise - Discussed need for and benefit of weight loss. BMI 36.78 kg/(m^2) 4. Chronic obstructive pulmonary disease, unspecified COPD type (HCC) - ICD9: 496, ICD10: J44.9 Continue current medications. Continue with Pulm 5. Chronic hypoxemic respiratory failure (HCC) - ICD9: 518.83, 799.02, ICD10: J96.11 Continue current medications. Continue with Pulm 6. Impaired fasting glucose - ICD9: 790.21, ICD10: R73.01 Monitored with labs Recommend healthy diet and exercise 7. Primary osteoarthritis of both knees - ICD9: 715.16, ICD10: M17.[address] Alberto, pain management 8. Thrombocytopenia (HCC) - ICD9: 287.5, ICD10: D69.6 Check CBC lab 9. Muscle cramps - ICD9: 729.82, ICD10: R25.2 Recommend doing some stretches before bed and may use heat 10. Complete heart block Has pacemaker, follow with Cardiology Follow up in 6 months. Will notify of lab results. I agree with the Chief Complaint, ROS, and Past Histories independently gathered by the clinical manager product support and the remaining scribed note accurately describes my personal service to the patient. Medical Decision Making: Problems: Moderate: 2+ stable chronic illnesses Data: Unique test(s) ordered: 1 Risk: Moderate: Drug management Medical Decision Making Level: 4 - Moderate Radha Shaikh MD The documentation for this note was completed by Fannie Candelario MA acting as scribe for Radha Shaikh MD. March 09, 2024 2:49 PM. Fannie Candelario MA documented in this encounter [facility] 03-09-2024 Note HNO ID: [id number] Author: RADHA SHAIKH MD Service: ? Author Type: Physician Type: Progress Notes Filed: 03/09/2024 15:27 Note Text: Chief Complaint Patient presents with: 6 Month Exam HPI Gabriel Sanchez is a 68 year old male who presents here today for 6 month follow up. No bowel, Gi, or urinary issues. Pt asking if his RBC level is low as he read that SOB can be caused by low RBC count.CBC was checked a year ago and was normal. Will recheck with labs that pt gets done. Pain: Chronic; follows with Pain Management Dr. Alberto. Dr. Alberto has pt scheduled to get some nerves burned for relief of knee pain. He has some middle back pain off and on x 3 weeks, sharp pains. He has used some Tylenol Arthritis. No heat or ice. No injury. He wonders if he has a pinched nerve. He gets cramps to ankles, feet, hands, arms. His thumbs and fingers cramp up a lot especially when biting fingernails. No cramps to the calves or thighs. Has cramps somewhere daily. COPD: Follows with [facility] Rivera and is currently taking Combivent Respimat QID prn and Breztri 160-9-4.8 2 puffs bid. Does check O2 at home 12/05. Does have Oxygen concentrator that he uses at night at 6 L. Uses Mucinex occasionally, due to coughing stuff up. O2 dries up his sinuses. He does check his pulse ox and pulse at home. When he is resting his pulse ox reading is around 97%-100%. He states that if he doesn't have oxygen on it will go down 85%. He states his O2 level is better with the oxygen. HTN/Lipid/CAD: Does not check BP at home. Follows with [facility]. He would like to stay within [facility], has appt to see Dr. Valdovinos in May. Taking Plavix 75 mg daily, Losartan 40 mg daily, Lisinopril 5 mg daily, Aspirin 81 mg daily and Toprol xl 50 mg daily. No chest pains or dizziness, no unusual SOB. Past medical history, appointments, medications, allergies reviewed. Previous Medical History PAST MEDICAL HISTORY Diagnosis Date Abdominal pain, left lower quadrant Acute myocardial infarction of other specified sites, episode of care unspecified 2003 Myocardial Infarction Asthma Benign neoplasm of rectum and anal canal Chronic hypoxemic respiratory failure (HCC) 08/24/2021 Colon cancer (HCC) 10/20/2010 COPD (chronic obstructive pulmonary disease) ([facility]) [address] Alfonso Coronary artery disease Diverticulitis Diverticulitis of colon (without mention of hemorrhage)(562.11) Hernia Hyperlipidemia, mixed Hypertension Impaired glucose tolerance Malignant neoplasm of colon, unspecified site 10/2010 Rx w Oxaliplatin (stopped for neuropathy) and 5FU Pacemaker PFO (patent foramen ovale) Pneumonia, organism unspecified(486) [...] Problem Relation Age of Onset Heart Mother IA other (chf) Mother Heart Father IA Heart disease Brother Heart disease Brother Heart Brother IA Heart Brother IA other (heart murmur) Daughter other (CTS) No Family History Patient Allergies ALLERGIES No Known Allergies Current Medications Current Outpatient Medications on File Prior to Visit Medication Sig clopidogrel (PLAVIX) 75 mg tablet Take 1 tablet by mouth once daily. nitroglycerin sublingual (NITROSTAT) 0.4 mg SL tablet Dissolve 1 tablet under the tongue every 5 minutes as needed. ipratropium 20 mcg-albuterol 100 mcg (COMBIVENT RESPIMAT) 20-100 mcg/actuation inhaler Inhale 1 Puff as instructed four times a day as needed. ucuhisoarj-nnuntmqh-vuymomghuf (BREZTRI AEROSPHERE) 160-9-4.8 mcg/actuation HFA aerosol inhaler Inhale 2 Puffs as instructed two times a day. lovastatin 40 mg tab (more content not included)... [facility] 02-24-2024 History of Presen t illness Narrative Images from the original note were not included. . [facility] [place] Note Patient name: Gabriel Sanchez PCP: Radha Shaikh MD CC: Follow-up COPD HPI: Gabriel Sanchez 68 year old male former 70 pack year smoker, quitting in 2016 with PMH significant for obesity, moderate COPD, chronic hypoxemic respiratory failure, CHB s/p PPM, CAD, dextrocardia, HLD, СВЕТЛАНА non compliant with CPAP, colon cancer. Current therapy with Breztri and as needed Combivent. Non-compliant with triple inhaler therapy stating not helpful and too expensive. Overusing Combivent. At [facility] with GERARD, he agreed to retry Breztri and have repeat sleep study. Did not have sleep study done. Taking Breztri but does not think it helps but using anyway. Uses Combivent every day at least once daily. Some days will use his Combivent up to 6 times. He has not noted any particular trigger for his shortness of breath other than activity. He denies audible wheezing, chronic cough or sputum production. DME: [employer] 4-6 L PAST MEDICAL HISTORY Diagnosis Date Abdominal pain, left lower quadrant Acute myocardial infarction of other specified sites, episode of care unspecified 2003 Myocardial Infarction Asthma Benign neoplasm of rectum and anal canal Chronic hypoxemic respiratory failure (HCC) 08/24/2021 Colon cancer ([facility]) 10/20/2010 COPD (chronic obstructive pulmonary disease) ([facility]) [address] Alfonso Coronary artery disease Diverticulitis Diverticulitis of colon (without mention of hemorrhage)(562.11) Hernia Hyperlipidemia, mixed Hypertension Impaired glucose tolerance Malignant neoplasm of colon, unspecified site 10/2010 Rx w Oxaliplatin (stopped for neuropathy) and 5FU Pacemaker PFO (patent foramen ovale) Pneumonia, organism unspecified(486) 2006 inpatient x 1 wk Postsurgical percutaneous transluminal coronary angioplasty status 2004 2 stents Ruptured appendix 06/24/2016 S/P placement of cardiac pacemaker 06/07/2022 Patient underwent implantation of [employer] dual-chamber permanent pacemaker with right atrial and right ventricular septal leads with Dr. Tracy on 06/06/2022. ALLERGIES No Known Allergies clopidogrel (PLAVIX) 75 mg tablet^Take 1 tablet by mouth once daily.^Disp: 90 tablet^Rfl: 3 nitroglycerin sublingual (NITROSTAT) 0.4 mg SL tablet^Dissolve 1 tablet under the tongue every 5 minutes as needed.^Disp: 25 tablet^Rfl: 3 ipratropium 20 mcg-albuterol 100 mcg (COMBIVENT RESPIMAT) 20-100 mcg/actuation inhaler^Inhale 1 Puff as instructed four times a day as needed.^Disp: 1 Each^Rfl: 5 sdecriqtxu-gkjxkeuz-pgvxvsmdfb (BREZTRI AEROSPHERE) 160-9-4.8 mcg/actuation HFA aerosol inhaler^Inhale 2 Puffs as instructed two times a day.^Disp: 1 Each^Rfl: 5 lovastatin 40 mg tablet^Take 1 tablet by mouth daily at bedtime. For cholesterol.^Disp: 90 tablet^Rfl: 3 lisinopril (ZESTRIL) 5 mg tablet^Take 1 tablet by mouth [...] date: 06/13/1971 Quit date: 06/24/2016 Years since quittin.6 Smokeless tobacco: Never Tobacco comments: Parent's non smokers. Spouse smokes in home. 12/14/2015 Currently use vape Vaping Use Vaping Use: Former Substances: States no tobacco in the device but tastes like tobacco Substance Use Topics Alcohol use: No Drug use: Not Currently Types: Marijuana FAMILY HISTORY Problem Relation Age of Onset Heart Mother IA other (chf) Mother Heart Father IA Heart disease Brother Heart disease Brother Heart Brother IA Heart Brother IA other (heart murmur) Daughter other (CTS) No [...] No fevers, chills, nightsweats, unintended weight loss HEENT: Denies nasal congestion/sinus symptoms, allergy problems. CARDIOVASCULAR: No chest pain, palpitations, orthopnea, edema. PULM: See HPI NEURO: No balance problems, peripheral weakness/paresthesias or numbness of concern. MUSC-SKEL: No new joint pain, swelling, or erythema. Back pain INTEGUMENTARY: Dry skin PHYSICAL EXAMINATION: BP 132/86 Pulse 74 Resp 16 Wt 244 lb (110.7kg) SpO2 94[3L via NC]% General Appearance: Obese, NAD. Skin: Skin color, texture, turgor normal, no suspicious rashes or lesions. Head: Normocephalic, no masses, lesions, tenderness or abnormalities. Eyes: Sclera, conjunctiva normal. Oropharynx: Poor dentition, no oral lesions. Neck: No JVD, no masses, no adenopathy. Lungs: Not labored, normal to percussion, no wheezes or crackles. Heart: Regular rate and rhythm, no murmurs gallops. Extremities: No pitting edema, no clubbing. Assessment/Plan: 1. Moderate COPD -Recommend continued use of Breztri for baseline. Caution patient about overuse of Combivent -Continue activity as tolerated -Spirometry at next visit 2. Chronic hypoxemic respiratory failure -Patient benefits from and is compliant with use of supplemental oxygen 3. Former cigarette smoker -Former smoker with sequelae of COPD -Qualifies for lung cancer screening and has agreed to referral 4. Class II obesity -Class II obesity with BMI of 37- -weight loss advised -Would do better if he agreed to assessment and treatment for his sleep apnea Camila Mohan MD [facility] [place] documented in this encounter [facility] 02-24-2024 Note HNO ID: [id number] Author: CAMILA MOHAN MD Service: ? Author Type: Physician Type: Progress Notes Filed: 02/24/2024 20:19 Note Text: . [facility] [place] Note Patient name: Gabriel Sanchez PCP: Radha Shaikh MD CC: Follow-up COPD HPI: Gabriel Sanchez 68 year old male former 70 pack year smoker, quitting in 2016 with PMH significant for obesity, moderate COPD, chronic hypoxemic respiratory failure, CHB s/p PPM, CAD, dextrocardia, HLD, СВЕТЛАНА non compliant with CPAP, colon cancer. Current therapy with Breztri and as needed Combivent. Non-compliant with triple inhaler therapy stating not helpful and too expensive. Overusing Combivent. At [facility] with GERARD, he agreed to retry Breztri and have repeat sleep study. Did not have sleep study done. Taking Breztri but does not think it helps but using anyway. Uses Combivent every day at least once daily. Some days will use his Combivent up to 6 times. He has not noted any particular trigger for his shortness of breath other than activity. He denies audible wheezing, chronic cough or sputum production. DME: [employer] 4-6 L PAST MEDICAL HISTORY Diagnosis Date Abdominal pain, [...] w Oxaliplatin (stopped for neuropathy) and 5FU Pacemaker PFO (patent foramen ovale) Pneumonia, organism unspecified(486) 2006 inpatient x 1 wk Postsurgical percutaneous transluminal coronary angioplasty status 2004 2 stents Ruptured appendix 06/24/2016 S/P placement of cardiac pacemaker 06/07/2022 Patient underwent implantation of [employer] dual-chamber permanent pacemaker with right atrial and right ventricular septal leads with Dr. Tracy on 06/06/2022. ALLERGIES No Known Allergies clopidogrel (PLAVIX) 75 mg tabletTake 1 tablet by mouth once daily.Disp: 90 tabletRfl: 3 nitroglycerin sublingual (NITROSTAT) 0.4 mg SL tabletDissolve 1 tablet under the tongue every 5 minutes as needed.Disp: 25 tabletRfl: 3 ipratropium 20 mcg-albuterol 100 mcg (COMBIVENT RESPIMAT) 20-100 mcg/actuation inhalerInhale 1 Puff as instructed four times a day as needed.Disp: 1 EachRfl: 5 glxkxxrqpw-daltnjph-bzxmysgxws (BREZTRI AEROSPHERE) 160-9-4.8 mcg/actuation HFA aerosol inhalerInhale 2 Puffs as instructed two times a day.Disp: 1 EachRfl: 5 lovastatin 40 mg tabletTake 1 tablet by mouth daily at bedtime. For cholesterol.Disp: 90 tabletRfl: 3 lisinopril (ZESTRIL) 5 mg tabletTake 1 tablet by mouth once daily.Disp: 90 tabletRfl: 3 metoprolol succinate ER (TOPROL XL) 50 mg 24 hr tabletTake 1 tablet by mouth once daily.Disp: 90 tabletRfl: 3 aspirin, enteric coated (ASPIRIN, ENTERIC COATED) 81 mg EC tabletTake 1 tablet by mouth once daily.Disp: Rfl: Social History Tobacco Use Smoking status: Former Packs/day: 1.50 Years: 45.00 Additional pack years: 0.00 Total pack years: 67.50 Types: Cigarettes Start date: 06/13/1971 Quit date: 06/24/2016 Years since quittin.6 Smokeless tobacco: Never Tobacco comments: Parent's non smokers. Spouse smokes in home. 12/14/2015 Currently use vape Vaping Use Vaping Use: Former Substances: States no tobacco in the device but tastes like tobacco Substance Use Topics Alcohol use: No Drug use: Not Currently Types: Marijuana FAMILY HISTORY Problem Relation Age of Onset Heart Mother IA other (chf) Mother Heart Father IA Heart disease Brother Heart disease Brother Heart Brother IA Heart Brother IA other (heart murmur) Daughter other (CTS) No [...] PERC TRANSL COR ANGIO 2003, 2006, 2009 (more content not included)... [facility] 02-23-2024 Telephone encounter Note OK to refill as ordered Radha Shaikh MD [facility] 02-23-2024 Miscellaneous Notes OK to refill as ordered Radha Shaikh MD Patient has been identified by name and date of : Yes Patient phones for refill(s): Requested Prescriptions Pending Prescriptions Disp Refills clopidogrel (PLAVIX) 75 mg tablet 90 tablet 3 Sig: Take 1 tablet by mouth once daily. Date of last office visit in primary care: 09/09/2023 Date of next office visit in primary care: 03/09/2024 Please advise. Thank you. Sabiha Dumont MA. documented in this encounter [facility] 02-23-2024 Telephone encounter Note Patient has been identified by name and date of : Yes Patient phones for refill(s): Requested Prescriptions Pending Prescriptions Disp Refills clopidogrel (PLAVIX) 75 mg tablet 90 tablet 3 Sig: Take 1 tablet by mouth once daily. Date of last office visit in primary care: 09/09/2023 Date of next office visit in primary care: 03/09/2024 Please advise. Thank you. Sabiha Dumont MA. [facility] 02-06-2024 Miscellaneous Notes Form completed, signed and faxed back. Fannie Candelario MA Type of form: Clearance Forms for right and left genicular RFA's. Form received via fax When form is completed, Fax form to [phone] Form has been forwarded to Physician Desk: Dr. Shaikh. Sanam Arreola MA documented in this encounter [facility] 02-06-2024 Miscellaneous Notes LVM for patient to return call to schedule genicular RFAs. Anticoag clearance is not required for genicular RFAs Tomasa Dominguez Ros[place] to Dr. Rome Alberto MD / Trisha Henderson CNP BODYBUILDER [facility] [place] [address] [address] Phone. [phone] / Fax. [phone] Procedure(s) being scheduled:Right genicular RFA w/ fluoro, then 2 weeks later, left genicular RFA with fluoro 1.Are you diabetic No 2. Are you on any blood thinners? Yes. Please list the current medications being prescribed Plavix. If yes, does it require a hold? Yes If yes, was approval letter sent? Yes 3. Are you taking any aspirin? Yes. Please list the current medications being prescribed 81 mg. 4. Are you currently taking any antibiotics? No 5. Do you have any allergies to latex? No 6. Do you have any allergies to seafood or shellfish? No 7. Do you have any allergies to x-ray dye? No 8. Did the physician instruct you to take any medication prior to your procedure? No 9. Does this procedure require a drop hammer pile driver operator? Yes If yes, has patient been notified that a drop hammer pile driver operator is needed and must be present at check in? yes 10. Were the pre-procedure instructions explained and provided to the patient? Yes 11. Do you have a pacemaker? Yes 12. Do you have an internal stimulator of any kind? No If yes, please bring the remote with you to your procedure visit. 13. Have you received the COVID-19 Vaccine? No. (Patient should not receive a procedure including steroids 14 days prior to their first dose of the COVID vaccine. They should not receive any procedure containing steroids in the time frame between their 1st and 2nd doses of the COVID vaccine. They should not receive a procedure containing steroids 14 days after their 2nd dose of the COVID vaccine.) Josef Conner documented in this encounter [facility] 02-06-2024 Note HNO ID: [id number] Author: LEONIE CHILEL MA Service: ? Author Type: Heel Attacher [place] Type: Progress Notes Filed: 02/06/2024 16:06 Note Text: Review of Systems Constitutional: Negative for activity change, chills, fever and unexpected weight change. Gastrointestinal: Negative for bowel retention or incontinence Genitourinary: Negative for difficulty urinating. Negative for bladder retention or incontinence Musculoskeletal: Positive for arthralgias, back pain, gait problem, joint swelling and myalgias. Negative for neck pain and neck stiffness. Neurological: Negative for weakness, numbness and headaches. Psychiatric/Behavioral: Positive for dysphoric mood and sleep disturbance. Negative for suicidal ideas. The patient is not nervous/anxious. [facility] 02-06-2024 History of Presen t illness Narrative Review of Systems Constitutional: Negative for activity change, chills, fever and unexpected weight change. Gastrointestinal: Negative for bowel retention or incontinence Genitourinary: Negative for difficulty urinating. Negative for bladder retention or incontinence Musculoskeletal: Positive for arthralgias, back pain, gait problem, joint swelling and myalgias. Negative for neck pain and neck stiffness. Neurological: Negative for weakness, numbness and headaches. Psychiatric/Behavioral: Positive for dysphoric mood and sleep disturbance. Negative for suicidal ideas. The patient is not nervous/anxious. Images from the original note were not included. [facility] Today's Date: 02/06/2024 Name: Gabriel Sanchez : 1955 Purpose: New Patient Consultation Chief complaint: Bilateral knee pain (right > left) Referring Clinician: Sukhi Borjas MD Pertinent Past Medical History: Ulnar nerve neuropathy, Presence of drug coated stent in right coronary artery, HLD, HTN, S/P placement of cardiac pacemaker, COPD, Tobacco use disorder, History of colon cancer, stage III, TIA, Obesity, Hx-rectal/anal malign, Pertinent Past Surgeries: none History of Present Illness (HPI): 12/31/2023 - Initial HPI (Obtained by Rome Alberto M.D.) - consulted by Ortho for possible Geniculate Ablation/Block DURATION AND ONSET: The pain complaint has been present for approximately many years. The pain had a gradual onset. He reports that there have been discussions that his cartilage might have been damaged by chemotherapy. He is on O2 for COPD. He saw Dr. Borjas in Ortho, who advised non-operative management. RED FLAG SYMPTOMS: denies red flags. PAIN DESCRIPTION: Timing: Constant Character: Aching Primary Location: bilateral knees, right > left Radiation: none Exacerbating factors: Standing, Walking Relieving factors: Sitting, Lying Down Interferes with: physical activity Patient reporting he received excellent relief from the genicular nerve block that was done on 01/30/2024. Patient states he had 95% relief from the right side and 80% relief from the left side. Patient states it lasted longer than what he expected. Patient would like to proceed with the radiofrequency ablation as the patient feels he benefited from the nerve block. Current Pain Medications: Neuropathics: NSAIDS: Muscle Relaxants: Topicals: Other Prescription or OTC Pain Medications: Asa 81mg Opioids (when applicable): Anti-depressants or Mood-Stabilizers: None Anti-Coagulants: Plavix 75mg Therapies Attended (Current or Most Recent): No Current Therapies 01/01/2024 [facility] SPINE COMBINATION Questionnaire [facility] Questionnaire Opiod Risk Tool Completed Date 01/01/2024 Comments Low Risk 0 No question data found. (All drug screens are appropriate unless indicated otherwise) Treatment History: PAIN PROCEDURES: DATE PROCEDURE IMPROVEMENT 01/30/2024 B/L Gen NB 95% relief for right, and he left 80% MEDICATIONS Taken TO DATE (for the chief complaint(s)): Neuropathics: None NSAIDS: None Muscle Relaxants: None Topicals: None Other Prescription or OTC Pain Medications: Tylenol (Acetaminophen), Aspirin Opioids: Oxycodone (eg Percocet) Compliance: PDMP website checked and validated on 02/06/2024 by Trisha Henderson APRN.INDEPENDENT FILM MAKER All prescriptions have been APPROPRIATELY filled. No suspicious activity was identified. 01/01/2024 [facility] SPINE COMBINATION Questionnaire [facility] Questionnaire Opiod Risk Tool Completed Date 01/01/2024 Comments Low Risk 0 (All drug screens are appropriate unless indicated otherwise) Risk Assessment: SILVANO-7: 01/01/2024 SILVANO - 7 SCORES Score 4 (0-4) minimal anxiety, (5-9) mild anxiety, (10-14) moderate anxiety, (15-21) severe anxiety PHQ-9: 06/19/2011 02/11/2022 01/01/2024 PHQ-9 Score 1 0 5 (0-4) minimal depression, (5-9) mild depression, (10-14) moderate depression, (15-19) moderately severe depression, (20-27) severe depression Opioid Risk Tool: Family History of Substance Abuse: 0 - No Personal History of Substance Abuse: 0 - No Age between 16-45: 0 - No History of Pre-Adolescence Sexual Abuse: 0 - No Psychological Disease: 0 - No Risk Total: 0 (0-3, low risk or no risk; 4-7, moderate risk, 8+, high risk) Diagnostic Studies: Relevant Imaging: MRI Spine Report No resulted procedures found. X-ray Bilat. Knee 11/2023 RESULT: Tricompartmental osteoarthritis, severe in the medial compartments with qkla-as-vjow contact, slightly worsened compared to 08/26/2019. Bilateral genu varus and mild lateral tibial translation. Small bilateral joint effusions. No fracture. IMPRESSION: Severe medial compartment predominant osteoarthritis in both knees slightly worse compared to 08/26/2019. X-ray Bilat. Knee 08/2019 RESULT: Severe medial compartment joint space narrowing bilaterally. Lewn-ne-yvpf contact medially on the right. Subchondral sclerosis, osteophytes around the knee joints. Lateral translation tibia in relation to femur bilaterally worse on the right. Minimal genu varus bilaterally. Mild narrowing of patellofemoral joint laterally on the right. Left patellofemoral joint is maintained. Osteophytes at the patellofemoral joint bilaterally. No joint effusion. No fracture. IMPRESSION: DEGENERATIVE JOINT DISEASE MOST SEVERE IN THE MEDIAL COMPARTMENT BILATERALLY AND PROGRESSED BILATERALLY SINCE THE PREVIOUS EXAM. Electrodiagnostic Study (EMG): None Recent Labs: Creatinine Date Value Ref Range Status 03/24/2023 1.12 0.73 - 1.22 mg/dL Final No results found for: EGFR Glucose, Point of Care Date Value Ref Range Status 06/07/2022 180 (A) 74 - 99 mg/dL Final Comment: Location:[facility], [address] [place] [address], [id number] The Accu-Chek Inform II glucose meter has not been approved for testing on patients receiving intensive medical intervention or therapy and results from this point of care glucose test should not be used for patient management decisions in these cases. Inaccurate results may also occur from other interfering factors, such as N-acetylcysteine (blood concentrations of greater than 5mg/dL), galactose, extremes of hematocrit (<10 or >65), or high doses of ascorbic acid (vitamin C) greater than 3mg/dL. Consider alternate testing mechanisms (e.g. core lab, blood gas instrument) in the above situations. Current Medications, Past Medical History, Past Surgical History, Family History, Social History and Review of Systems: On today's date, noted above, I have confirmed and edited as necessary, the PFSH and ROS obtained by others. Physical Exam: 02/06/24 1422 Pulse: 75 Resp: 18 SpO2: 95% Physical Exam Vitals reviewed. Constitutional: General: He is not in acute distress. Appearance: He is not ill-appearing. HENT: Head: Normocephalic and atraumatic. Eyes: Conjunctiva/sclera: Conjunctivae normal. Cardiovascular: Pulses: Normal pulses. Pulmonary: Effort: Pulmonary effort is normal. No respiratory distress. Musculoskeletal: Right knee: Crepitus present. Decreased range of motion. Tenderness present over the MCL, LCL, ACL and PCL. Instability Tests: Posterior drawer test positive. Left knee: Crepitus present. Decreased range of motion. Tenderness present over the MCL, LCL, ACL and PCL. Instability Tests: Posterior drawer test positive. Skin: General: Skin is warm and dry. Neurological: Mental Status: He is alert and oriented to person, place, and time. Gait: Gait abnormal (in a wheel chair). Psychiatric: Mood and Affect: Mood and affect normal. Behavior: Behavior normal. Behavior is cooperative. IMPRESSION: 68 year old male presents with complaint(s) of chronic bilateral knee pain, severe knee osteoarthritis noted on imaging. He is on 6L O2 continuously for COPD. Patient had excellent relief from the bilateral genicular nerve block we will schedule the patient for the genicular radiofrequency ablation we will do the right side first is that that is the side that is more painful. 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 PLAN: Gabriel Sanchez would benefit from the following to reach personal goals for decreasing pain, improving function and work participation, and/or improving quality of life: Medications: No Changes - Continue Current Medications Interventional Procedures: Right Genicular RFA w fluoro and 2 weeks later the left genicular RFA w fluoro Studies: None Functional Druze: NONE Referrals: No additional considerations at present Follow-up: 3 weeksAfter RFA Depending on response to the above plan, consider: SPRINT PNS Compliance and Clinic Policies Reviewed and/or Discussed Today: None Attribution: In addition to reviewing the information noted above, some elements copied from my most recent clinical note(s), including the physical exam (completed in entirety today), and the impression and plan sections, have been updated where appropriate. All reflect current medical decision making from today's date. Trisha Henderson APRN.CNP Pain Management [facility] [place], [facility] documented in this encounter [facility] 02-06-2024 Note HNO ID: [id number] Author: TRISHA HENDERSON APRN.CNP Service: ? Author Type: Nurse Practitioner Type: Progress Notes Filed: 02/06/2024 16:06 Note Text: [facility] Today's Date: 02/06/2024 Name: Gabriel Sanchez : 1955 Purpose: New Patient Consultation Chief complaint: Bilateral knee pain (right > left) Referring Clinician: Sukhi Borjas MD Pertinent Past Medical History: Ulnar nerve neuropathy, Presence of drug coated stent in right coronary artery, HLD, HTN, S/P placement of cardiac pacemaker, COPD, Tobacco use disorder, History of colon cancer, stage III, TIA, Obesity, Hx-rectal/anal malign, Pertinent Past Surgeries: none History of Present Illness (HPI): 12/31/2023 - Initial HPI (Obtained by Rome Alberto M.D.) - consulted by Ortho for possible Geniculate Ablation/Block DURATION AND ONSET: The pain complaint has been present for approximately many years. The pain had a gradual onset. He reports that there have been discussions that his cartilage might have been damaged by chemotherapy. He is on O2 for COPD. He saw Dr. Borjas in Ortho, who advised non-operative management. RED FLAG SYMPTOMS: denies red flags. PAIN DESCRIPTION: Timing: Constant Character: Aching Primary Location: bilateral knees, right > left Radiation: none Exacerbating factors: Standing, Walking Relieving factors: Sitting, Lying Down Interferes with: physical activity Patient reporting he received excellent relief from the genicular nerve block that was done on 01/30/2024. Patient states he had 95% relief from the right side and 80% relief from the left side. Patient states it lasted longer than what he expected. Patient would like to proceed with the radiofrequency ablation as the patient feels he benefited from the nerve block. Current Pain Medications: Neuropathics: NSAIDS: Muscle Relaxants: Topicals: Other Prescription or OTC Pain Medications: Asa 81mg Opioids (when applicable): Anti-depressants or Mood-Stabilizers: None Anti-Coagulants: Plavix 75mg Therapies Attended (Current or Most Recent): No Current Therapies 01/01/2024 AG SPINE COMBINATION Questionnaire GREENLIGHT Questionnaire Opiod Risk Tool Completed Date 01/01/2024 Comments Low Risk 0 No question data found. (All drug screens are appropriate unless indicated otherwise) Treatment History: PAIN PROCEDURES: DATE PROCEDURE IMPROVEMENT 01/30/2024 B/L Gen NB 95% relief for right, and he left 80% MEDICATIONS Taken TO DATE (for the chief complaint(s)): Neuropathics: None NSAIDS: None Muscle Relaxants: None Topicals: None Other Prescription or OTC Pain Medications: Tylenol (Acetaminophen), Aspirin Opioids: Oxycodone (eg Percocet) Compliance: PDMP website checked and validated on 02/06/2024 by Trisha Henderson APRN.INDEPENDENT FILM MAKER All prescriptions have been APPROPRIATELY filled. No suspicious activity was identified. 01/01/2024 AG SPINE COMBINATION Questionnaire GREENLIGHT Questionnaire Opiod Risk Tool Completed Date 01/01/2024 Comments Low Risk 0 (All drug screens are appropriate unless indicated otherwise) Risk Assessment: SILVANO-7: 01/01/2024 SILVANO - 7 SCORES Score 4 (0-4) minimal anxiety, (5-9) mild anxiety, (10-14) moderate anxiety, (15-21) severe anxiety PHQ-9: 06/19/2011 02/11/2022 01/01/2024 PHQ-9 Score 1 0 5 (0-4) minimal depression, (5-9) mild depression, (10-14) moderate depression, (15-19) moderately severe depression, (20-27) severe depression Opioid Risk Tool: Family History of Substance Abuse: 0 - No Personal History of Substance Abuse: 0 - No Age between 16-45: 0 - No History of Pre-Adolescence Sexual Abuse: 0 - No Psychological Disease: 0 - No Risk Total: 0 (0-3, low risk or no risk; 4-7, moderate risk, 8+, high risk) Diagnostic Studies: Relevant Imaging: MRI Spine Report No resulted procedures found. X-ray Bilat. Knee 11/2023 RESULT: Tricompartmental osteoarthritis, severe in the medial compartments with ylvv-nu-ahhg contact, slightly worsened compared to 08/26/2019. Bilateral genu varus and mild lateral tibial translation. Small bilateral joint effusions. No fracture. IMPRESSION: Severe medial compartment predominant osteoarthritis in both knees slightly worse compared to 08/26/2019. X-ray Bilat. Knee 08/2019 RESULT: Severe medial compartment joint space narrowing bilaterally. Bkoq-ly-yrde contact medially on the right. Subchondral sclerosis, osteophytes around the knee joints. Lateral translation tibia in relation to femur bilaterally worse on the right. Minimal genu varus bilaterally. Mild narrowing of patellofemoral joint laterally on the right. Left patellofemoral joint is maintained. Osteophytes (more content not included)... [facility] 01-01-2024 Miscellaneous Notes LVM to advise patient of message from Dr Remy Dominguez He can use THC cream on his knees, but not on the day of the procedures. O2 will be made available in the OR, but he should have enough for the ride to/from the hospital with at least an hour to spare in case there are delays bringing him to/from the OR. When the OR staff calls him to schedule, he can clarify his needs with them. Rome Alberto III, MD, MARLON Upon asking pre-procedure questions, patient asked if he was able to use THC cream on knees (patient was unsure of name brand but believed it was a hemp cream used for Arthritis?) and if oxygen would be ready for patient when he came into [place]. Routed to Dr Alberto to advise Tomasa Dominguez Procedure(s) being scheduled: Genicular Nerve Block (Superior Medial, Inferior Medial, Superior Lateral - Diagnostic only, NO steroids) under fluoroscopic guidance BILATERAL SIDES 1.Are you diabetic No 2. Are you on any blood thinners? Yes. Please list the current medications being prescribed Plavix. If yes, does it require a hold? No If yes, was approval letter sent? No 3. Are you taking any aspirin? Yes. Please list the current medications being prescribed baby aspril. 4. Are you currently taking any antibiotics? No If yes, is it prophylactic or for treatment of an infection? N/A 5. Do you have any allergies to latex? No 6. Do you have any allergies to seafood or shellfish? No 7. Do you have any allergies to x-ray dye? No 8. Did the physician instruct you to take any medication prior to your procedure? No 9. Does this procedure require a drop hammer pile driver operator? Yes If yes, has patient been notified that a drop hammer pile driver operator is needed and must be present at check in? Yes 10. Were the pre-procedure instructions explained and provided to the patient? Yes 11. Do you have a pacemaker? Yes 12. Do you have an internal stimulator of any kind? No If yes, please bring the remote with you to your procedure visit. 13. Have you received the COVID-19 Vaccine? No. If yes, date(s) received: N/A (Patient should not receive a procedure including steroids 14 days prior to their first dose of the COVID vaccine. They should not receive any procedure containing steroids in the time frame between their 1st and 2nd doses of the COVID vaccine. They should not receive a procedure containing steroids 14 days after their 2nd dose of the COVID vaccine.) Tomasa Dominguez documented in this encounter [facility] 01-01-2024 Note HNO ID: [id number] Author: NANCY DOUGHERTY LPN Service: ? Author Type: LICENSED NURSE Type: Progress Notes Filed: 01/01/2024 10:33 Note Text: Review of Systems Constitutional: Positive for activity change. Negative for chills, fever and unexpected weight change. Gastrointestinal: Negative for bowel retention or incontinence Genitourinary: Negative for difficulty urinating. Negative for bladder retention or incontinence Musculoskeletal: Positive for arthralgias, back pain, gait problem and joint swelling. Negative for myalgias, neck pain and neck stiffness. Neurological: Positive for weakness. Negative for headaches. Psychiatric/Behavioral: Positive for dysphoric mood and sleep disturbance. Negative for suicidal ideas. The patient is not nervous/anxious. [facility] 01-01-2024 History of Presen t illness Narrative Review of Systems Constitutional: Positive for activity change. Negative for chills, fever and unexpected weight change. Gastrointestinal: Negative for bowel retention or incontinence Genitourinary: Negative for difficulty urinating. Negative for bladder retention or incontinence Musculoskeletal: Positive for arthralgias, back pain, gait problem and joint swelling. Negative for myalgias, neck pain and neck stiffness. Neurological: Positive for weakness. Negative for headaches. Psychiatric/Behavioral: Positive for dysphoric mood and sleep disturbance. Negative for suicidal ideas. The patient is not nervous/anxious. Images from the original note were not included. [facility] Today's Date: 12/31/2023 Name: Gabriel Sanchez : 1955 Purpose: New Patient Consultation Chief complaint: Bilateral knee pain (right > left) Referring Clinician: Sukhi Borjas MD Pertinent Past Medical History: Ulnar nerve neuropathy, Presence of drug coated stent in right coronary artery, HLD, HTN, S/P placement of cardiac pacemaker, COPD, Tobacco use disorder, History of colon cancer, stage III, TIA, Obesity, Hx-rectal/anal malign, Pertinent Past Surgeries: none History of Present Illness (HPI): 12/31/2023 - Initial HPI (Obtained by Rome Alberto M.D.) - consulted by Ortho for possible Geniculate Ablation/Block DURATION AND ONSET: The pain complaint has been present for approximately many years. The pain had a gradual onset. He reports that there have been discussions that his cartilage might have been damaged by chemotherapy. He is on O2 for COPD. He saw Dr. Borjas in Ortho, who advised non-operative management. RED FLAG SYMPTOMS: denies red flags. PAIN DESCRIPTION: Timing: Constant Character: Aching Primary Location: bilateral knees, right > left Radiation: none Exacerbating factors: Standing, Walking Relieving factors: Sitting, Lying Down Interferes with: physical activity Current Pain Medications: Neuropathics: NSAIDS: Muscle Relaxants: Topicals: Other Prescription or OTC Pain Medications: Asa 81mg Opioids (when applicable): Anti-depressants or Mood-Stabilizers: None Anti-Coagulants: Plavix 75mg Therapies Attended (Current or Most Recent): No Current Therapies No data to display No question data found. (All drug screens are appropriate unless indicated otherwise) Treatment History: PAIN PROCEDURES: DATE PROCEDURE IMPROVEMENT To date, no interventional pain management procedures performed at this practice. MEDICATIONS Taken TO DATE (for the chief complaint(s)): Neuropathics: None NSAIDS: None Muscle Relaxants: None Topicals: None Other Prescription or OTC Pain Medications: Tylenol (Acetaminophen), Aspirin Opioids: Oxycodone (eg Percocet) Compliance: PDMP website checked and validated on 12/31/2023 by Rome Alberto MD All prescriptions have been APPROPRIATELY filled. No suspicious activity was identified. No data to display (All drug screens are appropriate unless indicated otherwise) Risk Assessment: SILVANO-7: No data to display (0-4) minimal anxiety, (5-9) mild anxiety, (10-14) moderate anxiety, (15-21) severe anxiety PHQ-9: 02/11/2022 06/19/2011 PHQ-9 Score 0 1 (0-4) minimal depression, (5-9) mild depression, (10-14) moderate depression, (15-19) moderately severe depression, (20-27) severe depression Opioid Risk Tool: Family History of Substance Abuse: 0 - No Personal History of Substance Abuse: 0 - No Age between 16-45: 0 - No History of Pre-Adolescence Sexual Abuse: 0 - No Psychological Disease: 0 - No Risk Total: 0 (0-3, low risk or no risk; 4-7, moderate risk, 8+, high risk) Diagnostic Studies: Relevant Imaging: MRI Spine Report No resulted procedures found. X-ray Bilat. Knee 11/2023 RESULT: Tricompartmental osteoarthritis, severe in the medial compartments with ymhe-iw-wzoo contact, slightly worsened compared to 08/26/2019. Bilateral genu varus and mild lateral tibial translation. Small bilateral joint effusions. No fracture. IMPRESSION: Severe medial compartment predominant osteoarthritis in both knees slightly worse compared to 08/26/2019. X-ray Bilat. Knee 08/2019 RESULT: Severe medial compartment joint space narrowing bilaterally. Noyh-na-fnib contact medially on the right. Subchondral sclerosis, osteophytes around the knee joints. Lateral translation tibia in relation to femur bilaterally worse on the right. Minimal genu varus bilaterally. Mild narrowing of patellofemoral joint laterally on the right. Left patellofemoral joint is maintained. Osteophytes at the patellofemoral joint bilaterally. No joint effusion. No fracture. IMPRESSION: DEGENERATIVE JOINT DISEASE MOST SEVERE IN THE MEDIAL COMPARTMENT BILATERALLY AND PROGRESSED BILATERALLY SINCE THE PREVIOUS EXAM. Electrodiagnostic Study (EMG): None Recent Labs: Creatinine Date Value Ref Range Status 03/24/2023 1.12 0.73 - 1.22 mg/dL Final No results found for: EGFR Glucose, Point of Care Date Value Ref Range Status 06/07/2022 180 (A) 74 - 99 mg/dL Final Comment: Location:[facility], [address] [place] [address], [id number] The Accu-Chek Inform II glucose meter has not been approved for testing on patients receiving intensive medical intervention or therapy and results from this point of care glucose test should not be used for patient management decisions in these cases. Inaccurate results may also occur from other interfering factors, such as N-acetylcysteine (blood concentrations of greater than 5mg/dL), galactose, extremes of hematocrit (<10 or >65), or high doses of ascorbic acid (vitamin C) greater than 3mg/dL. Consider alternate testing mechanisms (e.g. core lab, blood gas instrument) in the above situations. Current Medications, Past Medical History, Past Surgical History, Family History, Social History and Review of Systems: On today's date, noted above, I have confirmed and edited as necessary, the PFSH and ROS obtained by others. Physical Exam: 01/01/24 1012 Pulse: 74 Resp: 20 SpO2: 95% Bilateral Knee(s): Inspection: No edema Palpation: Concordant tenderness to palpation of medial joint lines. Range of Motion: Normal and non-painful active extension and flexion No crepitus Special Tests: No ligamentous laxity with Anterior drawer, Posterior drawer, Navdeep, Varus stress, Valgus stress IMPRESSION: 68 year old male presents with complaint(s) of chronic bilateral knee pain, severe knee osteoarthritis noted on imaging. He is on 6L O2 continuously for COPD. We discussed Genicular blocks and RFA. Difficult historian - interrupted frequently during explanations of the injection process and would ask the same questions repetitively. Despite extensive efforts to redirect and explain the process, I am not certain that he understood the process. Diagnoses: (M17.0) Primary osteoarthritis of both knees (primary encounter diagnosis) (M25.561, M25.562, G89.29) Chronic pain of both knees PLAN: Gabriel Sanchez would benefit from the following to reach personal goals for decreasing pain, improving function and work participation, and/or improving quality of life: Medications: No Changes - Continue Current Medications Interventional Procedures: Genicular Nerve Block (Superior Medial, Inferior Medial, Superior Lateral - Diagnostic only, NO steroids) under fluoroscopic guidance BILATERAL SIDES Welder Fabricator Needed: Nerve Blocks - YES (Exception: Occipital Nerve Blocks - NO) Anticoagulants: Plavix (7 days when hold needed) Relevant Allergies: None Additional Info: On 6L O2 [place], recommend scheduling in [place]; Needs BRYANT post-injection eval within 7 days, RFA if positive Studies: None Functional Druze: NONE Referrals: No additional considerations at present Follow-up: After RFA Depending on response to the above plan, consider: SPRINT PNS Compliance and Clinic Policies Reviewed and/or Discussed Today: None Attribution: In addition to reviewing the information noted above, some elements copied from my most recent clinical note(s), including the physical exam (completed in entirety today), and the impression and plan sections, have been updated where appropriate. All reflect current medical decision making from today's date. Rome Alberto MD Pain Management [facility] [place] [facility] documented in this encounter [facility] 12-31-2023 Note HNO ID: [id number] Author: ROME ALBERTO MD Service: ? Author Type: Physician Type: Progress Notes Filed: 01/01/2024 10:46 Note Text: [facility] Today's Date: 12/31/2023 Name: Gabriel Sanchez : 1955 Purpose: New Patient Consultation Chief complaint: Bilateral knee pain (right > left) Referring Clinician: Sukhi Borjas MD Pertinent Past Medical History: Ulnar nerve neuropathy, Presence of drug coated stent in right coronary artery, HLD, HTN, S/P placement of cardiac pacemaker, COPD, Tobacco use disorder, History of colon cancer, stage III, TIA, Obesity, Hx-rectal/anal malign, Pertinent Past Surgeries: none History of Present Illness (HPI): 12/31/2023 - Initial HPI (Obtained by Rome Alberto M.D.) - consulted by Ortho for possible Geniculate Ablation/Block DURATION AND ONSET: The pain complaint has been present for approximately many years. The pain had a gradual onset. He reports that there have been discussions that his cartilage might have been damaged by chemotherapy. He is on O2 for COPD. He saw Dr. Borjas in Ortho, who advised non-operative management. RED FLAG SYMPTOMS: denies red flags. PAIN DESCRIPTION: Timing: Constant Character: Aching Primary Location: bilateral knees, right > left Radiation: none Exacerbating factors: Standing, Walking Relieving factors: Sitting, Lying Down Interferes with: physical activity Current Pain Medications: Neuropathics: NSAIDS: Muscle Relaxants: Topicals: Other Prescription or OTC Pain Medications: Asa 81mg Opioids (when applicable): Anti-depressants or Mood-Stabilizers: None Anti-Coagulants: Plavix 75mg Therapies Attended (Current or Most Recent): No Current Therapies No data to display No question data found. (All drug screens are appropriate unless indicated otherwise) Treatment History: PAIN PROCEDURES: DATE PROCEDURE IMPROVEMENT To date, no interventional pain management procedures performed at this practice. MEDICATIONS Taken TO DATE (for the chief complaint(s)): Neuropathics: None NSAIDS: None Muscle Relaxants: None Topicals: None Other Prescription or OTC Pain Medications: Tylenol (Acetaminophen), Aspirin Opioids: Oxycodone (eg Percocet) [facility] and validated on 12/31/2023 by Rome Alberto MD All prescriptions have been APPROPRIATELY filled. No suspicious activity was identified. No data to display (All drug screens are appropriate unless indicated otherwise) Risk Assessment: SILVANO-7: No data to display (0-4) minimal anxiety, (5-9) mild anxiety, (10-14) moderate anxiety, (15-21) severe anxiety PHQ-9: 02/11/2022 06/19/2011 PHQ-9 Score 0 1 (0-4) minimal depression, (5-9) mild depression, (10-14) moderate depression, (15-19) moderately severe depression, (20-27) severe depression Opioid Risk Tool: Family History of Substance Abuse: 0 - No Personal History of Substance Abuse: 0 - No Age between 16-45: 0 - No History of Pre-Adolescence Sexual Abuse: 0 - No Psychological Disease: 0 - No Risk Total: 0 (0-3, low risk or no risk; 4-7, moderate risk, 8+, high risk) Diagnostic Studies: Relevant Imaging: MRI Spine Report No resulted procedures found. X-ray Bilat. Knee 11/2023 RESULT: Tricompartmental osteoarthritis, severe in the medial compartments with tlsk-ss-jjte contact, slightly worsened compared to 08/26/2019. Bilateral genu varus and mild lateral tibial translation. Small bilateral joint effusions. No fracture. IMPRESSION: Severe medial compartment predominant osteoarthritis in both knees slightly worse compared to 08/26/2019. X-ray Bilat. Knee 08/2019 RESULT: Severe medial compartment joint space narrowing bilaterally. Vgyq-by-rowz contact medially on the right. Subchondral sclerosis, osteophytes around the knee joints. Lateral translation tibia in relation to femur bilaterally worse on the right. Minimal genu varus bilaterally. Mild narrowing of patellofemoral joint laterally on the right. Left patellofemoral joint is maintained. Osteophytes at the patellofemoral joint bilaterally. No joint effusion. No fracture. IMPRESSION: DEGENERATIVE JOINT DISEASE MOST SEVERE IN THE MEDIAL COMPARTMENT BILATERALLY AND PROGRESSED BILATERALLY SINCE THE PREVIOUS EXAM. Electrodiagnostic Study (EMG): None Recent Labs: Creatinine Date Value Ref Range Status 03/24/2023 1.12 0.73 - 1.22 mg/dL Final No results found for: EGFR Glucose, Point of Care Date Value Ref Range Status 06/07/2022 180 (A) 74 - 99 mg/dL Final Comment: Location:[facility], [address] [place] [address], [facility] The Accu-Chek Inform II glucose meter has not been approved for testing on patien (more content not included)... [facility] 12-01-2023 Note HNO ID: [id number] Author: SUKHI BORJAS MD Service: ? Author Type: Physician Type: Progress Notes Filed: 12/20/2023 00:17 Note Text: Sukhi Borjas MD Department of Orthopaedics Orthopaedics [address] [facility] [address] Dept: [phone] Dept December 01, 2023 CHIEF COMPLAINT: New of the Right Knee (Bilateral knee pain/Xray 12/01/2023/Last seen 09/05/19 OA bilateral knees) and New of the Left Knee HPI: Patient is here for bilateral knee pain. States this has been going on for some time. He was told he was not a surgical candidate but hopes that something has changed and there will be something new that might help that is non-surgical. Patient is oxygen dependent. He is retired. ASSESSMENT: M25.561, M25.562, G89.29 Chronic pain of both knees (primary encounter diagnosis) M17.0 Primary osteoarthritis of both knees PLAN: We'll try to get him in to Pain for possible geniculate ablation FOLLOW UP INSTRUCTIONS: As needed. Mr. Gabriel Sanchez was advised as to contrast therapies and/or to take analgesics/anti-inflammatories as needed and all contraindications were reviewed. OBJECTIVE: Mr. Gabriel Sanchez is a pleasant 68 year old in no apparent distress. Gen:There were no vitals taken for this visit. nl development, obese, no deformities ENT: Normocephalic, normal hearing, moist mucosa CV: Pulses:DP/PT= 2+ and symmetric, capillary refill < 2 secs, no peripheral edema/varicosities Skin: no rash, bruising or lesions. Good turgor. Psych: cooperative and appropriate, alert and oriented x 3, good mood and affect. Musculoskeletal: 10-115 bilaterally with fixed varus of each knee. Mild PF crepitus. IMAGING: IMPRESSION: Severe medial compartment predominant osteoarthritis in both knees slightly worse compared to 08/26/2019. Meat Molder: RAYSHAWN Transcribe Date/Time: Dec 02 2023 3:40P Dictated by : DARIAN ANGULO DO This examination was interpreted and the report reviewed and electronically signed by: DARIAN ANGULO DO on Dec 02 2023 3:43PM EST Results-Findings * * *Final Report* * * DATE OF EXAM: Dec 01 2023 3:56PM [id number] [id number] - XR KNEE 4V AP/PA/LAT/MERCH BERNADETTE / PROCEDURE REASON: multiple diagnoses * * * * Physician Interpretation * * * * EXAMINATION: XR KNEE 4V AP/PA/LAT/[facility]CH BERNADETTE PATIENT/TECHNOLOGIST PROVIDED HISTORY: Chronic bilateral knee pain CLINICAL INFORMATION: 68 years old Male with Pain in both knees, unspecified chronicity TECHNIQUE: XR KNEE 4V AP/PA/LAT/[facility]CH BERNADETTE Laterality: BILATERAL Number of different views (projections): 4 views of each knee COMPARISON: Radiographs 08/26/2019 RESULT: Tricompartmental osteoarthritis, severe in the medial compartments with ejzf-fn-iimf contact, slightly worsened compared to 08/26/2019. Bilateral genu varus and mild lateral tibial translation. Small bilateral joint effusions. No fracture. Supporting Subjective Information Below: Past Medical History: PAST MEDICAL HISTORY Diagnosis Date Abdominal pain, left lower quadrant Acute myocardial infarction of other specified sites, episode of care unspecified 2003 Myocardial Infarction Asthma Benign neoplasm of rectum and anal canal Chronic hypoxemic respiratory failure (HCC) 08/24/2021 Colon cancer (HCC) 10/20/2010 COPD (chronic obstructive pulmonary disease) (HCC) 2006 [...] septal leads with Dr. Tracy on 06/06/2022. Past Surgical History: PAST SURGICAL HISTORY Procedure Laterality Date CARDIAC [...] PAST SURGICAL HISTORY OF Bilateral 10/2022 B/L ca (more content not included)... [facility] 12-01-2023 History of Presen t illness Narrative Sukhi Borjas MD Department of Orthopaedics Orthopaedics [address] [facility] [address] Dept: [phone] Dept December 01, 2023 CHIEF COMPLAINT: New of the Right Knee (Bilateral knee pain/Xray 12/01/2023/Last seen 09/05/19 OA bilateral knees) and New of the Left Knee HPI: Patient is here for bilateral knee pain. States this has been going on for some time. He was told he was not a surgical candidate but hopes that something has changed and there will be something new that might help that is non-surgical. Patient is oxygen dependent. He is retired. ASSESSMENT: M25.561, M25.562, G89.29 Chronic pain of both knees (primary encounter diagnosis) M17.0 Primary osteoarthritis of both knees PLAN: We'll try to get him in to Pain for possible geniculate ablation FOLLOW UP INSTRUCTIONS: As needed. Mr. Gabriel Sanchez was advised as to contrast therapies and/or to take analgesics/anti-inflammatories as needed and all contraindications were reviewed. OBJECTIVE: Mr. Gabriel Sanchez is a pleasant 68 year old in no apparent distress. Gen:There were no vitals taken for this visit. nl development, obese, no deformities ENT: Normocephalic, normal hearing, moist mucosa CV: Pulses:DP/PT= 2+ and symmetric, capillary refill < 2 secs, no peripheral edema/varicosities Skin: no rash, bruising or lesions. Good turgor. Psych: cooperative and appropriate, alert and oriented x 3, good mood and affect. Musculoskeletal: 10-115 bilaterally with fixed varus of each knee. Mild PF crepitus. IMAGING: IMPRESSION: Severe medial compartment predominant osteoarthritis in both knees slightly worse compared to 08/26/2019. Meat Molder: RAYSHAWN Transcribe Date/Time: Dec 02 2023 3:40P Dictated by : DARIAN ANGULO DO This examination was interpreted and the report reviewed and electronically signed by: DARIAN ANGULO DO on Dec 02 2023 3:43PM EST Results-Findings * * *Final Report* * * DATE OF EXAM: Dec 01 2023 3:56PM WRX [id number] - XR KNEE 4V AP/PA/LAT/[facility] BERNADETTE / PROCEDURE REASON: multiple diagnoses * * * * Physician Interpretation * * * * EXAMINATION: XR KNEE 4V AP/PA/LAT/MERCH BERNADETTE PATIENT/TECHNOLOGIST PROVIDED HISTORY: Chronic bilateral knee pain CLINICAL INFORMATION: 68 years old Male with Pain in both knees, unspecified chronicity TECHNIQUE: XR KNEE 4V AP/PA/LAT/MERCH BERNADETTE Laterality: BILATERAL Number of different views (projections): 4 views of each knee COMPARISON: Radiographs 08/26/2019 RESULT: Tricompartmental osteoarthritis, severe in the medial compartments with xvzh-bv-glad contact, slightly worsened compared to 08/26/2019. Bilateral genu varus and mild lateral tibial translation. Small bilateral joint effusions. No fracture. Supporting Subjective Information Below: Past Medical History: PAST MEDICAL HISTORY Diagnosis Date Abdominal pain, left lower quadrant Acute myocardial infarction of other specified sites, episode of care unspecified 2003 Myocardial Infarction Asthma Benign neoplasm of rectum and anal canal Chronic hypoxemic respiratory failure (HCC) 08/24/2021 Colon cancer (HCC) 10/20/2010 COPD (chronic obstructive pulmonary disease) ([facility]) [address] Alfonso Coronary artery disease [...] septal leads with Dr. Tracy on 06/06/2022. Past Surgical History: PAST SURGICAL HISTORY Procedure Laterality Date CARDIAC [...] Coronary Angio Status SKIN BIOPSY HX Family History: FAMILY HISTORY Problem Relation Age of Onset Heart Mother IA other (chf) Mother Heart Father IA Heart disease Brother Heart disease Brother Heart Brother IA Heart Brother IA other (heart murmur) Daughter other (CTS) No Family History Social History: Social History Tobacco Use Smoking status: Former Packs/day: 1.50 Years: 45.00 Additional pack years: 0.00 Total pack years: 67.50 Types: Cigarettes Start date: 06/13/1971 Quit date: 06/24/2016 Years since quittin.4 Smokeless tobacco: Never Tobacco comments: Parent's non smokers. Spouse smokes in home. 12/14/2015 Currently use vape Vaping Use Vaping Use: Former Substances: Flavoring, States no tobacco in the device but tastes like tobacco Devices: Pre-filled or refillable cartridge, Refillable tank Substance Use Topics Alcohol use: No Drug use: Not Currently Types: Marijuana Medications: Current Outpatient Medications Medication Sig xrpghgrorm-joraxqim-udxzkhtdvy (BREZTRI AEROSPHERE) 160-9-4.8 mcg/actuation HFA aerosol inhaler Inhale 2 Puffs as instructed two times a day. ipratropium 20 mcg-albuterol 100 mcg (COMBIVENT RESPIMAT) 20-100 mcg/actuation inhaler Inhale 1 Puff as instructed four times a day as needed. clopidogrel (PLAVIX) 75 mg tablet Take 1 [...] Current Facility-Administered Medications Medication Dose Route Frequency perflutren lipid microspheres 1.3 mL in NaCl (PF) 0.9% 10 mL injection (DEFINITY) INTRAVENOUS DIRECTED PRN sodium chloride 0.9 % (flush) 10 mL (BD POSIFLUSH) 10 mL INTRAVENOUS DIRECTED PRN Allergies: Patient has no known allergies. ROS: General (negative for fatigue, malaise, weight loss/gain) HEENT (negative for headache, earache, recent vision changes, sinus pain, sore throat) Respiratory (no recent shortness of breath, hemoptysis) CV (negative for chest tightness, palpitations) Musculoskeletal (see HPI) Psych (no depression, anxiety) REFERRING PHYSICIAN: Consultation requested by Dr. Shaikh for an opinion regarding knee pain. My final recommendations will be communicated back to the requesting physician by way of shared Medical record or letter to requesting physician via US mail. Radha Shaikh MD [address] [facility] [address] Sukhi Borjas MD documented in this encounter [facility] 12-01-2023 History of Presen t illness Narrative Radiology Service Progress Note PATIENT NAME: Gabriel Sanchez DATE OF SERVICE: December 01, 2023 TIME: 3:30 PM PATIENT IDENTITY VERIFICATION COMPLETED USING TWO (2) IDENTIFIERS: Name and Date of confirmed by patient verbally. FALL SCREENING: Has the patient had 2 falls in the last year or 1 fall with injury or currently using an Ambulatory Assistive Device (Walker, Cane, Wheelchair, Crutches, etc.)? No PATIENT GENDER DATA: Male PATIENT RELEVANT IMPLANT DATA REVIEWED: Yes PATIENT PRESENTS WITH AN IMPLANTABLE OR ATTACHED ALLIANCES CONSULTANT: No RADIOLOGY DEPARTMENT: General X-ray: Exam(s) Completed: Lower Extremity X-Ray(s): Knee, AP / Lat / Tunne / Merchant Bilateral PERIPHERAL IV DATA: Not applicable SIGNED BY: RT Anne(R) December 01, 2023 3:30 PM documented in this encounter [facility] 12-01-2023 Note HNO ID: [id number] Author: ANAT MORGAN RT(R) Service: ? Author Type: Crop Or Livestock Tenant Farmer Type: Progress Notes Filed: 12/01/2023 15:55 Note Text: Radiology Service Progress Note PATIENT NAME: Gabriel Sanchez DATE OF SERVICE: December 01, 2023 TIME: 3:30 PM PATIENT IDENTITY VERIFICATION COMPLETED USING TWO (2) IDENTIFIERS: Name and Date of confirmed by patient verbally. FALL SCREENING: Has the patient had 2 falls in the last year or 1 fall with injury or currently using an Ambulatory Assistive Device (Walker, Cane, Wheelchair, Crutches, etc.)? No PATIENT GENDER DATA: Male PATIENT RELEVANT IMPLANT DATA REVIEWED: Yes PATIENT PRESENTS WITH AN IMPLANTABLE OR ATTACHED ALLIANCES CONSULTANT: No RADIOLOGY DEPARTMENT: General X-ray: Exam(s) Completed: Lower Extremity X-Ray(s): Knee, AP / Lat / Tunne / Merchant Bilateral PERIPHERAL IV DATA: Not applicable SIGNED BY: RT Anne(R) December 01, 2023 3:30 PM [facility] 11-28-2023 Miscellaneous Notes Attempted to call the patient again. No answer. Left voicemail requesting call back. Left a message for the patient to call the office back. Need to know which knee is causing him pain. Thank you. documented in this encounter [facility] 11-26-2023 Note HNO ID: [id number] Author: AMALIA PRITCHARD PA-C Service: ? Author Type: Physician Security Services Manager Type: Progress Notes Filed: 11/26/2023 16:32 Note Text: Patient: Gabriel Sanchez PCP: Radha Shaikh MD CC: follow up HPI: Gabriel Sanchez 68 year old obese male former approximately 70 pack year smoker, quitting in 2016 with PMH significant for moderate COPD (FEV1 52%), chronic hypoxemic respiratory failure, CHB s/p PPM, CAD, dextrocardia/malrotation, HLD, СВЕТЛАНА non-compliant with CPAP, and colon cancer 2010. Current therapy with Combivent 4 times daily. He was previously on triple therapy Breztri but stopped because it did not make a difference in his symptoms. At last office visit, he was willing to try it again, however, it was too expensive. Dona Lozoya, social work professor, attempted to contact patient to check on prescription assistance, but she was unable to reach him. Today, patient reports variable cough with white phlegm. Does not cough daily. No hemoptysis. Frequent wheezing. Exertional dyspnea with minimal effort. Taking Mucinex daily as well as using his Combivent frequently stating, I try to make it last the whole month . No lower extremity edema. Currently wearing 4-6 L supplemental oxygen. Patient states he is not sleeping well and wakes up feeling tired. He had a sleep study, years ago , at [facility]. DME: [employer] PAST MEDICAL HISTORY Diagnosis Date Abdominal pain, left lower quadrant Acute myocardial infarction of other specified sites, episode of care unspecified 2003 Myocardial Infarction Asthma Benign neoplasm of rectum and anal canal Chronic hypoxemic respiratory failure (HCC) 08/24/2021 Colon cancer ([facility]) 10/20/2010 COPD (chronic obstructive pulmonary disease) ([facility]) [address] Alfonso Coronary artery disease [...] inhalerInhale 1 Puff as instructed four times a day as needed.Disp: 1 EachRfl: 5 fxxtpsjhck-dktkruzl-prjambjctr (BREZTRI) 160-9-4.8 mcg/actuation HFA aerosol inhalerInhale 2 Puffs as instructed two times a day.Disp: 3 EachRfl: 3 clopidogrel (PLAVIX) 75 mg tabletTake 1 tablet [...] date: 06[birth year]13/1971 Quit date: 06/24/2016 Years since quittin.4 Smokeless tobacco: Never Tobacco comments: Parent's non smokers. Spouse smokes in home. 12/14/2015 Currently use vape Vaping Use Vaping Use: Former Substances: Flavoring, States no tobacco in the device but tastes like tobacco Devices: Pre-filled or refillable cartridge, Refillable tank Substance Use Topics Alcohol use: No Drug use: Not Currently Types: Marijuana Family History Problem Relation Age of Onset Heart Mother IA other (chf) Mother Heart Father IA Heart disease Brother Heart disease Brother Heart Brother IA Heart Brother IA other (heart murmur) Daughter other (CTS) No [...] 11/20/2021 repeat PRN F SIGMOID W STENT PLACE (more content not included)... [facility] 11-26-2023 History of Presen t illness Narrative Images from the original note were not included. Patient: Gabriel Sanchez PCP: Radha Shaikh MD CC: follow up HPI: Gabriel Sanchez 68 year old obese male former approximately 70 pack year smoker, quitting in 2015 with PMH significant for moderate COPD (FEV1 52%), chronic hypoxemic respiratory failure, CHB s/p PPM, CAD, dextrocardia/malrotation, HLD, СВЕТЛАНА non-compliant with CPAP, and colon cancer 2010. Current therapy with Combivent 4 times daily. He was previously on triple therapy Breztri but stopped because it did not make a difference in his symptoms. At last office visit, he was willing to try it again, however, it was too expensive. Dona Lozoya, social work professor, attempted to contact patient to check on prescription assistance, but she was unable to reach him. Today, patient reports variable cough with white phlegm. Does not cough daily. No hemoptysis. Frequent wheezing. Exertional dyspnea with minimal effort. Taking Mucinex daily as well as using his Combivent frequently stating, I try to make it last the whole month . No lower extremity edema. Currently wearing 4-6 L supplemental oxygen. Patient states he is not sleeping well and wakes up feeling tired. He had a sleep study, years ago , at [facility]. DME: [employer] PAST MEDICAL HISTORY Diagnosis Date Abdominal pain, [...] inhaler^Inhale 1 Puff as instructed four times a day as needed.^Disp: 1 Each^Rfl: 5 bswdguxjdq-vnwuxrlq-fevivygyoo (BREZTRI) 160-9-4.8 mcg/actuation HFA aerosol inhaler^Inhale 2 Puffs as instructed two times a day.^Disp: 3 Each^Rfl: 3 clopidogrel (PLAVIX) 75 mg tablet^Take 1 [...] date: 06[birth year]13/1973 Quit date: 06/24/2016 Years since quittin.4 Smokeless tobacco: Never Tobacco comments: Parent's non smokers. Spouse smokes in home. 12/14/2015 Currently use vape Vaping Use Vaping Use: Former Substances: Flavoring, States no tobacco in the device but tastes like tobacco Devices: Pre-filled or refillable cartridge, Refillable tank Substance Use Topics Alcohol use: No Drug use: Not Currently Types: Marijuana Family History Problem Relation Age of Onset Heart Mother IA other (chf) Mother Heart Father IA Heart disease Brother Heart disease Brother Heart Brother IA Heart Brother IA other (heart murmur) Daughter other (CTS) No [...] - 2018 Pneumovax - 2020 Influenza - 2022 COVID-19 - most recent 08/2023 ROS: CONSTITUTIONAL: No fevers, chills, nightsweats, unintended weight loss or weight gain HEENT: Positive nasal congestion/sinus symptoms. EYES: No diplopia or blurry vision CARDIOVASCULAR: No chest pain, palpitations, orthopnea, PND, edema. PULM: See HPI GI: No dysphagia, no problematic reflux INTEGUMENTARY: No new skin changes or rashes PHYSICAL EXAMINATION: BP 112/68 Pulse 114 Resp 17 Wt 108 kg (238 lb) SpO2 94% BMI 36.19 kg/m O2: 4L NC Gen: No acute distress. Cooperative with examination. [...] Affect normal. No tremor. DATA: Oximetry, 08/28/2023 O2 Device O2 Adapter NC O2 Flow [...] DATE OF EXAM: Jun 11 2022 10:18PM [facility] 0540 - CT CHEST W IVCON [...] cm, otherwise no significant change is noted. BANG Questionnaire 1. Snoring Do you snore loudly (louder than talking or loud enough to be heard through closed doors)? YES 2. Tired Do you often feel tired, fatigued, or sleepy during daytime? YES 3. Observed Has anyone observed you stop breathing during your sleep? YES 4. Blood Pressure Do you have or are you being treated for high blood pressure? YES 5. BMI BMI more than 35 kg/m2? YES 6. Age Age over 50 yr old? YES 7. Neck circumference Neck circumference greater than 40 cm? YES 8. Gender Gender male? YES * Neck circumference is measured by staff High risk of СВЕТЛАНА: answering yes to three or more items Low risk of СВЕТЛАНА: answering yes to less than three items ASSESSMENT/PLAN: 1. Moderate COPD (chronic obstructive pulmonary disease) (HCC) - ICD9: 496, ICD10: J44.9 (primary diagnosis) Patient would do better if he was on maintenance triple therapy. Sent Breztri to preferred pharmacy. Copay say $42. Patient reports he is able to afford this. If he tolerates it well, I will send in a 3 month supply (which patient states he would be able to pay for). Combivent as needed, but no more than 4 times daily. 2. Chronic hypoxemic respiratory failure (HCC) - ICD9: 518.83, 799.02, ICD10: J96.11 Patient is compliant and benefits from supplemental oxygen. 3. Former cigarette smoker - ICD9: V15.82, ICD10: Z87.891 Former 12-sctu-irmm smoker with sequelae of emphysema. Recommending low-dose chest CT for cancer screening but patient is declining at this time. 4. СВЕТЛАНА (obstructive sleep apnea) - ICD9: 327.23, ICD10: G47.33 Patient is agreeable to an updated sleep study. Will send order to [facility] as patient would like to stay local. Portions of this documentation were copied and pasted from previous office visit notes in order to provide a cohesive continuity of the history. The note has been reviewed and edited and updated as necessary. Amalia Pritchard PA-C documented in this encounter [facility] 09-09-2023 Nurse Note Dermatology referral faxed to [facility] at [phone]. Sanam Arreola Ma documented in this encounter [facility] 09-09-2023 History of Presen t illness Narrative [...] (HCC) 10/20/2010 COPD (chronic obstructive pulmonary disease) ([facility]) [address] Alfonso Coronary artery disease [...] Problem Relation Age of Onset Heart Mother IA other (chf) Mother Heart Father IA Heart disease Brother Heart disease Brother Heart Brother IA Heart Brother IA other (heart murmur) Daughter other (CTS) No Family History Patient Allergies ALLERGIES No Known Allergies Current Medications Current Outpatient Medications on File Prior to Visit Medication Sig ipratropium 20 mcg-albuterol 100 mcg (COMBIVENT RESPIMAT) 20-100 mcg/actuation inhaler Inhale 1 Puff as instructed four times a day as needed. efianwbdhs-ixryzjcg-ohzodhtwad (BREZTRI) 160-9-4.8 mcg/actuation HFA aerosol inhaler Inhale [...] 01/30/2023 Influenza Vaccine(1) due on 06/20/2023 Covid-19 Vaccine(4 - 2022- season) due on 06/20/2023 Annual [...] Cont f/u with check 7. Atherosclerosis of [place] coronary artery of [place] heart without angina pectoris - ICD9: 414.01, [...] vaccination - ICD9: V05.9, ICD10: Z23 - PFIZER-BIONTECH COVID-19 VACCINE ( [place]) AGE 12+ YR - Receive in office today 12. Skin lesions Refer to Derm - [facility] 6 mo f/u with fasting labs. I agree with the Chief Complaint, ROS, and Past Histories independently gathered by the clinical manager product support and the remaining scribed note accurately describes my personal service to the patient. Medical Decision Making: Problems: Moderate: 1+ chronic illnesses with change and 2+ stable chronic illnesses Risk: Moderate: Drug management Medical Decision Making Level: 4 - Moderate Radha Shaikh MD The documentation for this note was completed by Sanam Arreola Ma acting as scribe for Radha Shaikh MD. September 09, 2023 3:31 PM. Sanam Arreola Ma documented in this encounter [facility] 09-09-2023 Note HNO ID: [id number] Author: aRdha Shaikh MD Service: ? Author Type: Physician Type: [...] states that he has a f/u with [facility] next week, so hoping to [...] Pulmonary visit to 6 L. States that Linda needs a new prescription stating that he [...] Problem Relation Age of Onset Heart Mother IA other (chf) Mother Heart Father IA Heart disease Brother Heart disease Brother Heart Brother IA Heart Brother IA (more content not included)... [facility] 09-02-2023 Miscellaneous Notes Sw left 2nd message for call to be returned to discuss patient assistance for breztri inhaler. Sw left patient message requesting call back to discuss breztri-Az&Me PAP forms. documented in this encounter [facility] 08-28-2023 Note HNO ID: [id number] Author: Anai Indy ROGELIO Service: ? Author Type: Respiratory Therapist Type: [...] 3 Wheel Walker 3 Wheel Walker NAME: ROGELIO Winchester PATIENT NAME: Gabriel Sanchez DATE: August 28, 2023 TIME: 10:14 AM Comment: [facility] 08-28-2023 Procedure note Associated Ord er(s): [...] Wheel Walker 3 Wheel Walker NAME: Indy OspinaJUANLUCINA PATIENT NAME: Gabriel Sanchez DATE: August 28, 2023 TIME: 10:14 AM Comment: documented in this encounter [facility] 08-28-2023 History of Presen t illness Narrative PULM FUNCTION SMARTBLOCK: Provider: Amalia Pritchard PA-C Assisting Tech: Indy Ospina RPFT Oximetry - Ambulation: 1 documented in this encounter [facility] 08-28-2023 Note HNO ID: [id number] Author: Indy Ospina RPFT Service: ? Author Type: Respiratory Therapist Type: Progress Notes Filed: 08/28/2023 10:14 AM Note Text: PULM FUNCTION SMARTBLOCK: Provider: Amalia Pritchard PA-C Assisting Tech: Indy Ospina RPFT Oximetry - Ambulation: 1 [facility] 08-28-2023 History of Presen t illness Narrative Images from the original note were not included. Patient: Gabriel Sanchez PCP: Radha Shaikh MD CC: routine follow-up HPI: Gabriel Sanchez [...] hypoxemic respiratory failure (HCC) 08/24/2021 Colon cancer ([facility]) 10/20/2010 COPD (chronic obstructive pulmonary disease) ([facility]) [address] Alfonso Coronary artery disease [...] Problem Relation Age of Onset Heart Mother IA other (chf) Mother Heart Father IA Heart disease Brother Heart disease Brother Heart Brother IA Heart Brother IA other (heart murmur) Daughter other (CTS) No [...] DATE OF EXAM: Jun 11 2022 10:18PM [facility] 0540 - CT CHEST W IVCON [...] home will provide 6L. Results sent to [employer]. Will check nocturnal on 4L. - OXIMETRY - NOCTURNAL 3. Former cigarette smoker - ICD9: V15.82, ICD10: Z87.891 Former 08-juko-rtcw smoker with sequelae of emphysema. Recommending low-dose chest CT for cancer screening but patient is declining at this time. Portions of this documentation were copied and pasted from previous office visit notes in order to provide a cohesive continuity of the history. The note has been reviewed and edited and updated as necessary. Amalia Pritchard PA-C documented in this encounter [facility] 08-28-2023 Note HNO ID: [id number] Author: Amalia Pritchard PA-C Service: ? Author Type: Physician Security Services Manager Type: Progress Notes Filed: 08/28/2023 10:49 AM Note Text: Patient: Gabriel Sanchez PCP: Radha Shaikh MD CC: routine follow-up HPI: Gabriel Sanchez [...] Problem Relation Age of Onset Heart Mother IA other (chf) Mother Heart Father IA Heart disease Brother Heart disease Brother Heart Brother IA Heart Brother IA other (heart murmur) Daughter other (CTS) No [...] above and upd (more content not included)... [facility] 08-28-2023 Nurse Note Intake information documented in the prior visit with ROGELIO Winchester today. documented in this encounter [facility] 06-27-2023 Miscellaneous Notes Detailed message left on pt identified VM that priyanka gurrola is ready for brass pickler at med rec. Fannie Candelario Ma Completed. Dioni Gonsalez APRN.KLAUS Pt is requesting to get a handicap parking permit for his car. Could you please advise? Thanks, Linda PSS documented in this encounter [facility] 06-18-2023 Miscellaneous Notes Nocturnal Oximetry, 3L, 06/10/2023. Recording interval: 8:39:44 High pulse: 105 Low pulse: 53 Highest spO2: 91% Lowest spO2: 66% Time with spO2 < 88%: 479 minutes I have received and reviewed the outside records noted above. Amalia Pritchard PA-C [facility] Respiratory [place] documented in this encounter [facility] 05-29-2023 Miscellaneous Notes AGATA: 05/28/23 Patient phones requesting refills as follows: Requested Prescriptions Pending Prescriptions Disp Refills ipratropium 20 mcg-albuterol 100 mcg (COMBIVENT RESPIMAT) 20-100 mcg/actuation inhaler 1 Each 5 Sig: Inhale 1 Puff as instructed four times daily as needed. Please review and advise. Sunitha Chirinos LPN documented in this encounter [facility] 05-28-2023 History of Presen t illness Narrative Images from the original note were not included. Patient: Gabriel Sanchez PCP: Radha Shaikh MD CC: follow up HPI: Gabriel Sanchez [...] At last office visit 03/[address] Mohan he was started on a prednisone taper [...] and anal canal Chronic hypoxemic respiratory failure ([facility]) 08/24/2021 Colon cancer ([facility]) 10/20/2010 COPD (chronic obstructive pulmonary disease) ([facility]) [address] Alfonso Coronary artery disease [...] days, then one daily for three days. yfdortvrem-igevgvso-dvmnetdurs (BREZTRI AEROSPHERE) 160-9-4.8 mcg/actuation HFA aerosol inhaler [...] Problem Relation Age of Onset Heart Mother IA other (chf) Mother Heart Father IA Heart disease Brother Heart disease Brother Heart Brother IA Heart Brother IA other (heart murmur) Daughter other (CTS) No [...] DATE OF EXAM: Jun 11 2022 10:18PM [facility] 0540 - CT CHEST W IVCON [...] smoker - ICD9: V15.82, ICD10: Z87.891 Former 48-xpex-omaf smoker with sequelae of emphysema. Recommending low-dose chest CT for cancer screening but patient declines Portions of this documentation were copied and pasted from previous office visit notes in order to provide a cohesive continuity of the history. The note has been reviewed and edited and updated as necessary. Amalia Pritchard PA-C documented in this encounter [facility] 03-24-2023 History of Presen t illness Narrative Images from the original note were not included. . Respiratory [place] Note Patient name: Gabriel Sanchez PCP: Radha Shaikh MD CC: COPD HPI: Gabriel Sanchez 67 [...] DATE OF EXAM: Jun 11 2022 10:18PM [facility] 0540 - CT CHEST W IVCON [...] and anal canal Chronic hypoxemic respiratory failure ([facility]) 08/24/2021 Colon cancer ([facility]) 10/20/2010 COPD (chronic obstructive pulmonary disease) ([facility]) [address] Alfonso Coronary artery disease [...] Tracy on 06/06/2022. ALLERGIES No Known Allergies mnqnlnnkqf-haulrnvx-nhihjwumvg (BREZTRI AEROSPHERE) 160-9-4.8 mcg/actuation HFA aerosol inhaler [...] Problem Relation Age of Onset Heart Mother IA other (chf) Mother Heart Father IA Heart disease Brother Heart disease Brother Heart Brother IA Heart Brother IA other (heart murmur) Daughter other (CTS) No [...] cardiac disease 3. Former cigarette smoker -Former 51-pwdd-mpoq smoker with sequelae of emphysema. Recommending low-dose chest CT for cancer screening but patient is declining at this time. Camila Mohan MD [facility] [place] documented in this encounter [facility] 03-24-2023 Nurse Note Patient presents with: COPD [...] medications as well. documented in this encounter [facility] 02-27-2023 Miscellaneous Notes Patient stopped by the [...] send request for new Breztri RX to [facility], and to notify office if it is not covered by his insurance. We could look into alternatives or consult SW for assistance. Encouraged patient to consistently wear exertional O2. Last echo 11/26/21, BNP 818 on 06/11/22. Follows with cardiology here. Sunitha Chirinos LPN documented in this encounter [facility] 02-17-2023 Miscellaneous Notes OK to refill as ordered Radha Shaikh MD Patient has been identified by name [...] Sabiha Dumont MA documented in this encounter [facility] 02-10-2023 Miscellaneous Notes See other refill request. Fannie Candelario Ma documented in this encounter [facility] 11-28-2022 Miscellaneous Notes The following approved medication requests have been transmitted electronically. Requested Prescriptions Pending Prescriptions Disp Refills lovastatin 40 mg tablet 90 tablet 3 Sig: Take 1 tablet by mouth daily at bedtime. For cholesterol. lisinopril (ZESTRIL, PRINIVIL) 5 mg tablet 90 tablet 3 Sig: Take 1 tablet by mouth once daily. Dioni Gonsalez APRN.KLAUS documented in this encounter [facility] 09-10-2022 Miscellaneous Notes Sw left 2nd message for patient to return call if wanting to discuss applying for assistance with Bretzi inhaler. Sw left patient message to have call returned to discuss prescription assistance for Bretzri inhaler. documented in this encounter [facility] 09-09-2022 Miscellaneous Notes All appropriate cardiac clearance [...] clearance form to us to complete at [phone]. Patient called. Verified name and date of . Patient states he needs to speak with [facility]. Vandana Armstrong LPN Received written note from another caregiver pt wanted a call in regards to needing cardiac clearance for eye surgery. Call to pt to get more information, LVM to contact office. Sabiha Leal RN documented in this encounter [facility] 09-09-2022 History of Presen t illness Narrative [...] to COPD. Ophth - Was seen by [facility], Dr. Potter due to vision issues. Pt [...] not pass his vision test while at [facility], but does have his sticker for his [...] (HCC) 10-20-2010 COPD (chronic obstructive pulmonary disease) ([facility]) [address] Alfonso Coronary artery disease [...] Problem Relation Age of Onset Heart Mother IA other (chf) Mother Heart Father IA Heart disease Brother Heart disease Brother Heart Brother IA Heart Brother IA other (heart murmur) Daughter other (CTS) No Family History Patient Allergies ALLERGIES No Known Allergies Current Medications Current Outpatient Medications on File Prior to Visit Medication Sig iupipxzjcj-jyakavep-bzbluefylv (BREZTRI) 160-9-4.8 mcg/actuation HFA aerosol inhaler Inhale [...] Past Histories independently gathered by the clinical manager product support and the remaining scribed note accurately describes my personal service to the patient. Medical Decision Making: Problems: Moderate: 2+ stable chronic illnesses Risk: Moderate: Drug management Medical Decision Making Level: 4 - Moderate Radha Shaikh MD The documentation for this note was completed by Sanam Arreola Ma acting as scribe for Radha Shaikh MD. September 09, 2022 4:07 PM. Sanam Arreola Ma documented in this encounter [facility] 09-06-2022 Procedure note Associated Ord er(s): OXIMETRY [...] 9:18 AM Comment: documented in this encounter [facility] 09-06-2022 History of Presen t illness Narrative PULM FUNCTION SMARTBLOCK: Provider: Amalia Pritchard PA-C Assisting Tech: ROGELIO Winchester Spirometry: 1 DLCO: 1 Oximetry - Ambulation: 1 documented in this encounter [facility] 09-02-2022 Miscellaneous Notes Patient is scheduled for an updated walk and office visit on 09/06. ariane Sami with [facility] called requesting order for O2.O2 Concentrator to be faxed to [facility]. Vandana Armstrong LPN documented in this encounter [facility] 07-23-2022 History of Presen t illness Narrative [facility] CD[facility] Enrollment Provider Action/FYI: Patient referred by: TCM Contact made with patient: No - 3rd attempt to reach patient, left another message: Hi my name is Fannie Atwood RN and I am calling from the [facility] on behalf of your PCP, Radha Shaikh MD. We are excited to share with you a new program to help you manage your health. Please call me back at [phone]. I hope you can take the time to speak with me. (Keep encounter open for additional two business days in case patient calls back. Close encounter if no response by end of second business day) Closing: Could not reach the patient after 3 attempted outreaches. [employer] Coxswain to retry patient in one week. END OUTREACH documented in this encounter [facility] 07-15-2022 History of Presen t illness Narrative [facility] CD Enrollment Provider Action/FYI: Patient referred by: TCM Contact made with patient: No - 2nd attempt to reach patient, left another message: Hi my name is Fannie Atwood RN and I am calling from the [facility] on behalf of your PCP, Radha Shaikh MD. We are excited to share with you a new program to help you manage your health. Please call me back at [phone]. I hope you can take the time to speak with me. (Keep encounter open for additional two business days in case patient calls back. Close encounter if no response by end of second business day) Closing: Could not reach the patient after two attempted outreaches. [employer] Coxswain to retry patient in one week. END OUTREACH documented in this encounter [facility] 07-11-2022 History of Presen t illness Narrative [facility] CDM Enrollment Provider Action/FYI: Patient referred by: TCM Contact made with patient: No - Left Message: Hi my name is Fannie Atwood RN and I am calling from the [facility] on behalf of your PCP, Radha Shaikh MD. We are excited to share with you a new program to help you manage your health. Please call me back at [phone] between the hours of 8am-5pm Friday-Friday. You will receive another phone call from me within the next two business days. I hope you can take the time to speak with me. (Keep encounter open and attempt 2nd outreach in two business days from today) END OUTREACH documented in this encounter [facility] 07-10-2022 History of Presen t illness Narrative [facility] General Cardiology Electrophysiology PRIMARY CARE PHYSICIAN: Radha Shaikh [address] [place] [address] CHIEF COMPLAINT: Presence of cardiac pacemaker. HISTORY OF PRESENT ILLNESS (copied from Dr. Tracy's original consult note on 06/06/2022): 66-year-old male with history of essential hypertension, COPD, atherosclerotic heart disease, myocardial infarction, status post several PCI's with stent, preserved systolic function, presented to [facility] ED with 1 week history of increasing fatigue and dyspnea, found to be in sinus rhythm with complete AV block with a narrow complex escape in the 40s, stable hemodynamically. The patient was transferred to [facility]. The patient reports ongoing fatigue and dyspnea [...] hypoxemic respiratory failure (HCC) 08/24/2021 Colon cancer ([facility]) 10-20-2010 COPD (chronic obstructive pulmonary disease) ([facility]) [address] Alfonso Coronary artery disease [...] Problem Relation Age of Onset Heart Mother IA other (chf) Mother Heart Father IA Heart disease Brother Heart disease Brother Heart Brother IA Heart Brother IA other (heart murmur) Daughter other (CTS) No Family History ALLERGIES No Known Allergies MEDICATIONS: jnpmfjrjip-qriphglf-pmceulxszn (BREZTRI) 160-9-4.8 mcg/actuation HFA aerosol inhaler^Inhale 2 [...] (episode 3 of 13). Presenting EGM shows /DRAWING HAND @ 70 ppm; RV pacing 98% of [...] daily. No follow-ups on file. Anton Rock APRN.INDEPENDENT FILM MAKER documented in this encounter [facility] 07-10-2022 Nurse Note No cardiac complaints today. Amanda Dior MA documented in this encounter [facility] 07-09-2022 History of Presen t illness Narrative TRANSITION CARE MANAGEMENT (TCM) FOLLOW-UP NOTE Provider Action/FYI Chart reviewed. Unable to reach patient-left voicemail. Order placed for CDM to follow for COPD. Summary: Pt discharged from [facility] on 06/12/22. Admitted for: COPD [employer] Coxswain plan for next outreach: No further follow up needed at this time Signature Joyce Sheppard RN July 09, 2022 documented in this encounter [facility] 06-26-2022 History of Presen t illness Narrative TRANSITION CARE MANAGEMENT (TCM) FOLLOW-UP NOTE Provider Action/FYI Chart reviewed. Pt had follow-up with PCP 06/19/22. Unable to reach patient-left voicemail. Will continue to follow. Summary: Pt discharged from [facility] on 06/12/22. Admitted for: COPD Ass[employer] Boat Coxswain plan for next outreach: Will continue to follow. Signature Joyce Sheppard RN June 26, 2022 documented in this encounter [facility] 06-25-2022 Miscellaneous Notes Order sent to Linda 06/20. Resent to [facility] per patient request. Sunitha Chirinos LPN Liliya burciaga from [facility] requesting portiable oxygen RX be sent to [facility]. Fax [phone]. Emerald Simental LPN documented in this encounter [facility] 06-20-2022 Miscellaneous Notes Office visit with PA on 06/20 Sunitha Chirinos LPN Karen from [employer] team calling for patient asking if he could have an Rx for portable oxygen concentrator to use when he is outside of the house? Patient has an appointment on Friday for a follow up . documented in this encounter [facility] 06-20-2022 History of Presen t illness Narrative [...] heart block s/p recent pacemaker 05/2022, acute IA in 2003, CAD, hyperlipidemia, colon CA 2010, and СВЕТЛАНА non-compliant with CPAP. Former smoker, quit 2015. 67.5 pack years. Patient was admitted to [facility] from 06/11 - 06/12 for treatment of AECOPD. This was a week after being hospitalized from 06/05 - 06/07 secondary to complete heart block with pacemaker placement on 06/06. Patient presented to [facility] ED on 06/11 secondary to SOB and [...] and as needed during the day. DME: [employer] Patient is out of the house frequently for appointments and would benefit from a portable oxygen concentrator. I have sent orders for POC in January 2022 and Oct 2021. PSG in 2016 revealed СВЕТЛАНА, however, patient did not follow [...] 10 mL INTRAVENOUS DIRECTED PRN Jennyfer Cain APRN.INDEPENDENT FILM MAKER I have reviewed and updated the medication [...] Signed On 11-02-2021 15:39:38 EST by Camila Mohan M.D. CT chest with PE protocol, 06/11/2022 [...] Discussed maintenance therapy with triple therapy inhaler, Ivaniaztri, however, patient refuses. Copay is $89 per month. I offered to refer him to Dona Neal, social work professor, to pursue financial assistance with [employer] and he declined. Continue Combivent inhaler Up [...] Amalia Pritchard PA-C documented in this encounter [facility] 06-17-2022 Miscellaneous Notes Called pt to cancel Hosp F/U appt w/ Interv. Card [employer] and reschedule w/ EP [employer] per Teri Jason - no answer, left vm w/ new appt info: 07/10/22 @ 3:00PM w/ Anton Rock APRN.KLAUS @ [facility] Chambers June 17, 2022 4:12 PM Pt called requesting Hospital Follow-Up appt w/ Jennyfer Cain APRN.INDEPENDENT FILM MAKER - Pt advised that the [facility] office instructed him to call our office to schedule a Hospital F/U appt w/ Radha in about 2-3 weeks. During hospital stay, pt had a Pacemaker implanted by Dr. Tracy. Scheduled Hosp F/U appt for 07/09/22 @ 3:00pm Fwd to [employer] and Intervention Cardiology [place] to review and advise if Hospital F/U w/ Interv. Card. is appropriate, or if pt should just f/u w/ EP. Americo Chambers June 17, 2022 11:44 AM documented in this encounter [facility] 06-14-2022 Nurse Note Patient states in phone [...] steri strips fall off on their own. Lenore Wong LPN documented in this encounter [facility] 06-13-2022 History of Presen t illness Narrative TRANSITIONAL CARE MANAGEMENT (TCM) COMMUNITY MONITORING PROGRAM Provider Action/FYI: 2nd Outreach attempt, NA left message to call PCP to schedule a f/u and/or if there is any questions/concerns about his d/c instructions SUMMARY: Pt discharged from [facility] on 06/12/22. Admitted for: COPD Contact made with patient: No - 2nd unsuccessful attempt - end outreach and close encounter Outreach ended TCM Home Visit Referral Source of Stratification: TCM [facility] Admission Status: Discharged Readmission Risk Score: 16 LAVONNE Score: 9 Program referral criteria met: Does not meet referral criteria Patient does not qualify for High Risk TCM Home Visit program due to: Does not meet referral criteria Patient does not quality for High Risk TCM Home Visit Program due to: Does not meet referral criteria Preferred contact number: [phone] Is patient staying somewhere other than the listed home address: No Dialysis Patient: No TRANSITIONAL CARE MANAGEMENT (TCM) COMMUNITY MONITORING PROGRAM Provider Action/FYI: 1st Outreach attempt, NA left message will try again any urgent needs/questions please call PCP Pt NEEDS f/u with PCP, TCM Eligible through 06/26 SUMMARY: Pt discharged from [facility] on 06/12/22. Admitted for: COPD Contact made with patient: No - next outreach attempt will be on next Outreach ended documented in this encounter [facility] 06-11-2022 History of Presen t illness Narrative [...] TCM thru 06/21/22 Summary: Pt discharged from [facility] on 06/07/22. Admitted for: complete heart block Concerns: Pt instructed to go to ED by physician since oxygen requirement went up to 5 liters and low pulse ox. Pt had recent PPM placed. Needs PCP appt. Ass[employer] Coxswain plan for next outreach: Will continue to follow. Signature Joyce Sheppard RN June 11, 2022 documented in this encounter [facility] 06-10-2022 History of Presen t illness Narrative Virtualist Distance Health Note (Community monitoring/CC HC/H@[facility] escalations) Adult seen for Monitoring Track: TCM Contacted by phone, SphereUp, [employer] Duo, Zoom, Doximity, other: phone 2:40pm -- [...] 06/05-06/07: 66-year-old male patient was transferred from [facility] ED for complete heart block. Patient was [...] was spent providing medical care using telemedicine. [place] [address] association Signed in as Primary Virtualist, Secondary Virtualist, or [facility] Telehealth provider: Primary SIGNATURE: Tammy Winter MD PATIENT NAME: Gabriel Sanchez DATE: June 10, 2022 documented in this encounter [facility] 06-10-2022 History of Presen t illness Narrative [...] this morning=paged virtualist SUMMARY: Pt discharged from [facility] on 06/07/22. Admitted for: complete heart block Contact made with patient: Yes Hi my name is Joyce Sheppard RN and I am calling from the [facility] on behalf of your PCP, Radha Shaikh MD I understand you were recently in [...] TCM Home Visit Referral Source of Stratification: [facility] Admission Status: Discharged Readmission Risk Score: 10 LAVONNE Score: 8 Program referral criteria met: Does not meet referral criteria Patient does not qualify for High Risk TCM Home Visit program due to: Does not meet referral criteria Patient does not quality for High Risk TCM Home Visit Program due to: Does not meet referral criteria Preferred contact number: [phone] Is patient staying somewhere other than the listed home address: No Dialysis Patient: No TRANSITIONAL CARE MANAGEMENT (TCM) COMMUNITY MONITORING PROGRAM Provider Action/FYI: Pt is s/p pacemaker placement Needs PCP f/u appt Unable to reach patient-left voicemail-1st attempt SUMMARY: Pt discharged from [facility] on 06/07/22. Admitted for: complete heart block Contact made with patient: No - next outreach attempt will be on next day Outreach ended TCM Home Visit Referral Source of Stratification: [facility] Admission Status: Discharged Readmission Risk Score: 10 LAVONNE Score: 8 Program referral criteria met: Does not meet referral criteria Patient does not qualify for High Risk TCM Home Visit program due to: Does not meet referral criteria Patient does not quality for High Risk TCM Home Visit Program due to: Does not meet referral criteria Preferred contact number: [phone] Is patient staying somewhere other than the listed home address: No Dialysis Patient: No documented in this encounter [facility] 06-10-2022 Miscellaneous Notes Spoke to pt. Scheduled for device check at July 23. Hillary Murphy, RN Patient called stating he was discharged from [facility] on 06/07. He states he is to schedule a 6 week check at the [place] [facility] for pacemaker. Please advise. Patient unsure if he is to contact [facility] or someone at [facility]. documented in this encounter [facility] 06-07-2022 Miscellaneous Notes Wound check scheduled Salud Correa Patient underwent implantation of permanent pacemaker with Dr. Tracy on 06/06/2022. He will need a wound check phone call in 1 week. 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 Anton Wilks documented in this encounter [facility] 02-14-2022 History of Presen t illness Narrative [facility] Enrollment Provider Action/FYI: [facility] insight introduction message recently read. 4th attempt to enroll patient in insight program Patient referred by: [facility] Contact made with patient: No - 2nd attempt to reach patient, left another message: Hi my name is Esther Holt RN and I am calling from the [facility] on behalf of your PCP, Radha Shaikh MD. We are excited to share with you a new program to help you manage your health. Please call me back at [phone]. I hope you can take the time to speak with me. (Keep encounter open for additional two business days in case patient calls back. Close encounter if no response by end of second business day) Closing: Could not reach the patient after two attempted outreaches. [employer] to retry patient in one week. END OUTREACH documented in this encounter [facility] 02-14-2022 Miscellaneous Notes Detailed message left on identified voicemail. Hillary Murphy RN ----- Message from Jennyfer Cain APRN.[employer]M [employer]KER sent at 02/13/2022 8:46 AM EDT ----- Please call patient and notify them of results. LDL cholesterol with good control at 66. Thank you! documented in this encounter [facility] 01-31-2022 Procedure note Associated Order(s): OXIMETRY WITH [...] 2:21 PM Comment: documented in this encounter [facility] 01-31-2022 History of Presen t illness Narrative [facility] [place], 01/31/2022: Patient: Gabriel Sanchez : 1955 The patient is here today by himself. HPI: Gabriel Sanchez is a 66 yo male with pmh significant for IA, CAD, hyperlipidemia, HTN, diverticulitis, colon CA, COPD and chronic hypoxemic respiratory failure. Former smoker, quit 2016. 67.5 pack years. The patient is here [...] have supplemental oxygen with him today. DME: [facility]. Patient is out of house frequently for [...] Amalia Pritchard PA-C documented in this encounter [facility] 01-31-2022 History of Presen t illness Narrative PULM FUNCTION SMARTBLOCK: Provider: Amalia Pritchard PA-C Assisting Tech: Indy Ospina RRT Oximetry - Ambulation: 1 System: [id number] documented in this encounter [facility] 01-11-2022 Miscellaneous Notes Pt notified via [employer] to check with [facility] for refills. These were refilled Nov 2021. Fannie Candelario Ma documented in this encounter [facility] 01-11-2022 Miscellaneous Notes Patient's request for medication is as follows: Pending Prescriptions Disp Refills BREZTRI AEROSPHERE 160 MCG-9MCG-4.8MCG/ACTUATION HFA AEROSOL INHALER 160 g 3 Sig: Inhale 2 Puffs as instructed twice daily. ALLISON: No AGATA: 11/02/2021 Please approve the above prescription(s) to electronically send to pharmacy. Halle Alvarez LPN documented in this encounter [facility] 07-11-2021 History of Presen t illness Narrative Radiology Service Progress Note PATIENT NAME: Gabriel Sanchez DATE OF SERVICE: July 11, 2021 TIME: 10:21 AM PATIENT IDENTITY VERIFICATION COMPLETED USING TWO (2) IDENTIFIERS: Name and Date of confirmed by patient verbally. FALL SCREENING: Has the patient had 2 falls in the last year or 1 fall with injury or currently using an Ambulatory Assistive Device (Walker, Cane, Wheelchair, Crutches, etc.)? No PATIENT GENDER DATA: Male PATIENT RELEVANT IMPLANT DATA REVIEWED: Not Applicable RADIOLOGY DEPARTMENT: General X-ray: Exam(s) Completed: Chest X-Ray PERIPHERAL IV DATA: Not applicable SIGNED BY: RT Tiago(R) July 11, 2021 10:21 AM documented in this encounter [facility] 07-21-2016 History of Past i llness Narrative Problem Noted Date Resolved Date Appendicitis 07/21/2016 [...] of this encounter (statuses as of 01/11/2022) [facility] History of Past illness Narrative* Problem Noted [...] of this encounter (statuses as of 01/11/2022) [facility] History of Past illness Narrative* Problem Noted [...] of this encounter (statuses as of 01/31/2022) [facility] of Past illness Narrative* Problem Noted [...] of this encounter (statuses as of 02/01/2022) [facility] of Past illness Narrative* Problem Noted [...] of this encounter (statuses as of 02/14/2022) [facility] of Past illness Narrative* Problem Noted [...] of this encounter (statuses as of 02/19/2022) [facility] of Past illness Narrative* Problem Noted [...] of this encounter (statuses as of 06/07/2022) [facility] of Past illness Narrative* Problem Noted [...] of this encounter (statuses as of 06/10/2022) [facility] of Past illness Narrative* Problem Noted [...] of this encounter (statuses as of 06/10/2022) [facility] of Past illness Narrative* Problem Noted [...] of this encounter (statuses as of 06/11/2022) [facility] of Past illness Narrative* Problem Noted [...] of this encounter (statuses as of 06/12/2022) [facility] of Past illness Narrative* Problem Noted [...] of this encounter (statuses as of 06/14/2022) [facility] of Past illness Narrative* Problem Noted [...] of this encounter (statuses as of 06/17/2022) [facility] of Past illness Narrative* Problem Noted [...] of this encounter (statuses as of 06/17/2022) [facility] of Past illness Narrative* Problem Noted [...] of this encounter (statuses as of 06/20/2022) [facility] of Past illness Narrative* Problem Noted [...] of this encounter (statuses as of 06/20/2022) [facility] of Past illness Narrative* Problem Noted [...] of this encounter (statuses as of 06/25/2022) [facility] of Past illness Narrative* Problem Noted [...] of this encounter (statuses as of 06/26/2022) [facility] of Past illness Narrative* Problem Noted [...] of this encounter (statuses as of 07/05/2022) [facility] Narrative* Problem Noted [...] of this encounter (statuses as of 07/09/2022) [facility] Narrative* Problem Noted [...] of this encounter (statuses as of 07/10/2022) [facility] Narrative* Problem Noted [...] of this encounter (statuses as of 07/11/2022) [facility] Narrative* Problem Noted [...] of this encounter (statuses as of 07/15/2022) [facility] Narrative* Problem Noted [...] of this encounter (statuses as of 07/23/2022) [facility] Narrative* Problem Noted [...] of this encounter (statuses as of 09/03/2022) [facility] Narrative* Problem Noted [...] of this encounter (statuses as of 09/06/2022) [facility] Narrative* Problem Noted [...] of this encounter (statuses as of 09/09/2022) [facility] Narrative* Problem Noted [...] of this encounter (statuses as of 09/10/2022) [facility] Narrative* Problem Noted [...] of this encounter (statuses as of 09/16/2022) [facility] Narrative* Problem Noted [...] of this encounter (statuses as of 09/25/2022) [facility] Narrative* Problem Noted [...] of this encounter (statuses as of 09/25/2022) [facility] Narrative* Problem Noted [...] of this encounter (statuses as of 11/28/2022) [facility] Narrative* Problem Noted [...] of this encounter (statuses as of 11/28/2022) [facility] Narrative* Problem Noted [...] of this encounter (statuses as of 12/20/2022) [facility] Narrative* Problem Noted [...] of this encounter (statuses as of 12/20/2022) [facility] Narrative* Problem Noted [...] of this encounter (statuses as of 02/10/2023) [facility] Narrative* Problem Noted [...] of this encounter (statuses as of 02/18/2023) [facility] Narrative* Problem Noted [...] of this encounter (statuses as of 02/27/2023) [facility] Narrative* Problem Noted [...] of this encounter (statuses as of 03/25/2023) [facility] Narrative* Problem Noted [...] of this encounter (statuses as of 03/26/2023) [facility] Narrative* Problem Noted [...] of this encounter (statuses as of 03/26/2023) [facility] Narrative* Problem Noted [...] of this encounter (statuses as of 05/29/2023) [facility] Narrative* Problem Noted [...] of this encounter (statuses as of 05/29/2023) [facility] Narrative* Problem Noted [...] of this encounter (statuses as of 06/18/2023) [facility] Narrative* Problem Noted [...] of this encounter (statuses as of 06/27/2023) [facility] Narrative* Problem Noted [...] of this encounter (statuses as of 07/08/2023) [facility] Narrative* Problem Noted [...] of this encounter (statuses as of 07/08/2023) [facility] Narrative* Problem Noted [...] of this encounter (statuses as of 08/28/2023) [facility] Narrative* Problem Noted [...] of this encounter (statuses as of 08/28/2023) [facility] Narrative* Problem Noted [...] of this encounter (statuses as of 09/04/2023) [facility] Narrative* Problem Noted [...] of this encounter (statuses as of 09/10/2023) [facility] Narrative* Problem Noted [...] of this encounter (statuses as of 09/25/2023) [facility] Narrative* Problem Noted [...] as of this encounter (statuses as of 11/27/2023) [facility] Narrative* Problem Noted [...] as of this encounter (statuses as of 12/01/2023) [facility] Narrative* Problem Noted [...] as of this encounter (statuses as of 12/01/2023) [facility] Narrative* Problem Noted [...] as of this encounter (statuses as of 12/02/2023) [facility] Narrative* Problem Noted [...] as of this encounter (statuses as of 12/20/2023) [facility] Narrative* Problem Noted [...] as of this encounter (statuses as of 01/01/2024) [facility] N[facility]ative* Problem Noted [...] as of this encounter (statuses as of 01/01/2024) [facility] N[facility]ative* Problem Noted [...] as of this encounter (statuses as of 01/01/2024) [facility] Narrative* Problem Noted [...] as of this encounter (statuses as of 01/22/2024) [facility] Narrative* Problem Noted [...] as of this encounter (statuses as of 01/22/2024) [facility] Narrative* Problem Noted [...] as of this encounter (statuses as of 02/06/2024) [facility] Narrative* Problem Noted Date Diagnosed Date Resolved Date Appendicitis 07/21/2016 12/17/2017 Rectal bleeding 09/22/2013 05/23/2015 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 06/ 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 Colon cancer 10/31/2010 11/09/2012 Abdominal pain, left lower quadrant 10/31/2010 03/26/2011 Benign neoplasm of rectum and anal canal 10/31/2010 05/23/2015 Malignant neoplasm of colon 10/31/2010 06/19/2020 documented as of this encounter (statuses as of 02/06/2024) [facility] note* Diagnosis Essential hypertension Unspecified essential hypertension Mixed hyperlipidemia [facility] Diagnosis Centrilobular emphysema (HCC) Other emphysema Chronic hypoxemic respiratory failure (HCC) Chronic respiratory failure History of COVID-19 [facility] Diagnosis Centrilobular emphysema (HCC)- Primary Other emphysema Chronic hypoxemic respiratory failure (HCC) Chronic respiratory failure History of COVID-19 [facility] Diagnosis Hypoxia- Primary Hypoxemia [facility]* Diagnosis Visit for wound check- Primary Encounter for other specified aftercare [facility]* Diagnosis HB (heart block)- Primary Conduction disorder, unspecified [facility] Diagnosis COPD with chronic bronchitis (HCC)- Primary Obstructive chronic bronchitis without exacerbation Chronic hypoxemic respiratory failure (HCC) Chronic respiratory failure СВЕТЛАНА (obstructive sleep apnea) Obstructive sleep apnea (adult) (pediatric) History of COVID-19 [facility] Diagnosis Asthma with chronic obstructive pulmonary disease (COPD) (HCC)- Primary Chronic obstructive asthma, unspecified S/P placement of cardiac pacemaker- Primary Cardiac pacemaker in situ Essential hypertension Unspecified essential hypertension [facility] Diagnosis S/P placement of cardiac pacemaker- Primary Cardiac pacemaker in situ Essential hypertension Unspecified essential hypertension [facility] Diagnosis Chronic hypoxemic respiratory failure (HCC) Chronic respiratory failure [facility] Diagnosis Chronic hypoxemic respiratory failure (HCC) Chronic respiratory failure [facility] Diagnosis Chronic hypoxemic respiratory failure (HCC) Chronic respiratory failure [facility] Diagnosis Chronic obstructive pulmonary disease, unspecified COPD type (HCC)- Primary Essential hypertension Unspecified essential hypertension Mixed hyperlipidemia S/P placement of cardiac pacemaker Cardiac pacemaker in situ Cataract of both eyes, unspecified cataract type [facility] Diagnosis HB (heart block)- Primary Conduction disorder, unspecified [facility]* Diagnosis Mixed hyperlipidemia Essential hypertension Unspecified essential hypertension [facility]* Diagnosis CHB (complete heart block) (HCC)- Primary Atrioventricular block, complete [facility] encounter [facility]* Diagnosis Essential hypertension Unspecified essential hypertension [facility]* Diagnosis Essential hypertension Unspecified essential hypertension [facility]* Diagnosis 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)- Primary Chronic hypoxemic respiratory failure (HCC) Chronic respiratory failure Former cigarette smoker Personal history of tobacco use, presenting hazards to health documented [facility] encounter [facility]* Diagnosis Complete heart block (HCC)- Primary Atrioventricular block, complete [facility]* Diagnosis 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)- Primary Dyspnea and respiratory abnormalities Other dyspnea and respiratory abnormality Chronic hypoxemic respiratory failure (HCC) Chronic respiratory failure СВЕТЛАНА (obstructive sleep apnea) Obstructive sleep apnea (adult) (pediatric) Former cigarette smoker Personal history of tobacco use, presenting hazards to health documented [facility] Diagnosis CHB (complete heart block) (HCC)- Primary Atrioventricular block, complete [facility]* Diagnosis 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)- Primary Chronic hypoxemic respiratory failure (HCC) Chronic respiratory failure Former cigarette smoker Personal history of tobacco use, presenting hazards to health documented [facility] encounter [facility]* Diagnosis Chronic hypoxemic respiratory failure (HCC) Chronic respiratory failure [facility]* Diagnosis Essential hypertension- Primary Unspecified essential hypertension Mixed hyperlipidemia Chronic pain of both knees 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) Chronic hypoxemic respiratory failure (HCC) Chronic respiratory failure S/P placement of cardiac pacemaker Cardiac pacemaker in situ Atherosclerosis of [place] coronary artery of [place] heart without angina pectoris Elevated glucose Other abnormal glucose Depression, unspecified depression type Need for influenza vaccination Need for prophylactic vaccination and inoculation against influenza Need for vaccination Need for prophylactic vaccination and inoculation against unspecified single disease Skin lesion Unspecified disorder of skin and subcutaneous tissue Actinic keratosis [facility] Diagnosis Moderate COPD (chronic obstructive pulmonary disease) (HCC)- Primary Chronic airway obstruction, not elsewhere classified Chronic hypoxemic respiratory failure (HCC) Chronic respiratory failure Former cigarette smoker Personal history of tobacco use, presenting hazards to health СВЕТЛАНА (obstructive sleep apnea) Obstructive sleep apnea (adult) (pediatric) [facility] Diagnosis Pain in both knees, unspecified chronicity- Primary [facility] Diagnosis Pain in both knees, unspecified chronicity [facility] Diagnosis Chronic pain of both knees- Primary Primary osteoarthritis of both knees Primary localized osteoarthrosis, lower leg [facility] Diagnosis Primary osteoarthritis of both knees- Primary Primary localized osteoarthrosis, lower leg Chronic pain of both knees Primary osteoarthritis of both knees Primary localized osteoarthrosis, lower leg [facility] Diagnosis Primary osteoarthritis of both knees- Primary Primary localized osteoarthrosis, lower leg Primary osteoarthritis of both knees Primary localized osteoarthrosis, lower leg [facility] Diagnosis HB (heart block)- Primary Conduction disorder, unspecified Primary osteoarthritis of both knees Primary localized osteoarthrosis, lower leg documented in this encounter [facility] Clinic[facility]* Diagnosis Chronic pain of both knees- Primary Primary osteoarthritis of both knees Primary localized osteoarthrosis, lower leg Anxiety due to invasive procedure [facility] Diagnosis Chronic pain of both knees- Primary Primary osteoarthritis of both knees Primary localized osteoarthrosis, lower leg Chronic pain of both knees Primary osteoarthritis of both knees Primary localized osteoarthrosis, lower leg Chronic pain of both knees Primary osteoarthritis of both knees Primary localized osteoarthrosis, lower leg [facility] Diagnosis Essential hypertension Unspecified essential hypertension Chronic pain of both knees Primary osteoarthritis of both knees Primary localized osteoarthrosis, lower leg Chronic pain of both knees Primary osteoarthritis of both knees Primary localized osteoarthrosis, lower leg [facility] Diagnosis Moderate COPD- Primary Chronic hypoxemic respiratory failure (HCC) Chronic respiratory failure Former cigarette smoker Personal history of tobacco use, presenting hazards to health Class 2 obesity Chronic pain of both knees Primary osteoarthritis of both knees Primary localized osteoarthrosis, lower leg Chronic pain of both knees Primary osteoarthritis of both knees Primary localized osteoarthrosis, lower leg documented in this encounter [facility] note* Diagnosis Essential hypertension- Primary Unspecified essential hypertension Atherosclerosis of [place] coronary artery of [place] heart without angina pectoris Mixed hyperlipidemia Chronic obstructive pulmonary disease, unspecified COPD type (HCC) Chronic hypoxemic respiratory failure (HCC) Chronic respiratory failure Impaired fasting glucose Primary osteoarthritis of both knees Primary localized osteoarthrosis, lower leg Thrombocytopenia (HCC) Thrombocytopenia, unspecified Muscle cramps Cramp of limb Complete heart block (HCC) Atrioventricular block, complete Chronic pain of both knees Primary osteoarthritis of both knees Primary localized osteoarthrosis, lower leg Chronic pain of both knees Primary osteoarthritis of both knees Primary localized osteoarthrosis, lower leg documented in this encounter [facility] note* Diagnosis Encounter for screening for lung cancer- Primary Former cigarette smoker Personal history of tobacco use, presenting hazards to health [facility] Diagnosis CHB (complete heart block) (HCC)- Primary Atrioventricular block, complete documented in this encounter [facility] note* Diagnosis Former cigarette smoker Personal history of tobacco use, presenting hazards to health documented in this encounter [facility] note* Diagnosis Chronic pain of both knees- Primary Primary osteoarthritis of both knees Primary localized osteoarthrosis, lower leg documented in this encounter [facility] for referral (narrative)* Outpatient Procedure (Routine) - Authorized Specialty Diagnoses / Procedures Referred By Floyd t Referred To Contact [facility] Diagnoses COPD with chronic bronchitis (HCC) Chronic hypoxemic respiratory failure (HCC) Procedures OXIMETRY WITH AMBULATION NONINVASIVE EAR/PULSE OXIMETRY MULTIPLE Amalia Humphreys PA-C [address] [address] Respiratory [place] [address] [place] [id number] Referral ID Status Reason Start Date Expiration Date Visits Requested Visits Authorized [id number] Authorized Auto-Generat ed Referral 06/20/2022 07/20/2023 1 1 * Outpatient Procedure (Routine) - Authorized Specialty Diagnoses / Procedures Referred By Contac t Referred To Contact [facility] Diagnoses COPD with chronic bronchitis (HCC) Chronic hypoxemic respiratory failure (HCC) Procedures LUNG DIFFUSION CAPACITY (DLCO) DIFFUSING CAPACITY Amalia Pritchard PA-C [address] [address] [address] Referral ID Status Reason Start Date Expiration Date Visits Requested Visits Authorized [id number] Authorized Auto-Generat ed Referral 06/20/2022 07/20/2023 1 1 * Outpatient Procedure (Routine) - Authorized Specialty Diagnoses / Procedures Referred By Contac t Referred To Contact [facility] Diagnoses COPD with chronic bronchitis (HCC) Chronic hypoxemic respiratory failure (HCC) Procedures SPIROMETRY BASELINE ONLY SPMTRY W/VC EXPIRATORY ADIS W/WO MXML VOL VNTJ Amalia Pritchard PA-C [address] [address] [address] [address] Referral ID Status Reason Start Date Expiration Date Visits Requested Visits Authorized [id number] Authorized Auto-Generat ed Referral 06/20/2022 07/20/2023 1 1 [facility] for referral (narrative)* Outpatient Procedure (Routine) - Authorized Specialty Diagnoses / Procedures Referred By Contac t Referred To Contact [facility] Diagnoses Chronic hypoxemic respiratory failure (HCC) COPD with chronic bronchitis (HCC) Procedures OXIMETRY WITH AMBULATION NONINVASIVE EAR/PULSE OXIMETRY MULTIPLE DETER Amalia Pritchard PA-C [address] [place] [address] [address] Referral ID Status Reason Start Date Expiration Date Visits Requested Visits Authorized [id number] Authorized Auto-Generat ed Referral 05/28/2023 06/26/2024 1 1 * Outpatient Procedure (Routine) - Authorized Specialty Diagnoses / Procedures Referred By Contac t Referred To Contact [facility] Diagnoses Dyspnea and respiratory abnormalities Procedures ECHO ECHO TTHRC R-T 2D W/WOM-MODE COMPL SPEC&COLR D Amalia Pritchard PA-C [address] [place] [address] [facility] Vascular [place] [phone] Referral ID Status Reason Start Date Expiration Date Visits Requested Visits Authorized [id number] Authorized Auto-Generat ed Referral 05/28/2023 05/27/2024 1 1 [facility] for referral (narrative)* Diagnostic Procedure Only (Routine) - Closed Specialty Diagnoses / Procedures Referred By Contac t Referred To Contact XR IMAGING Diagnoses Pain in both knees, unspecified chronicity Procedures XR KNEE GENERAL 4V AP BOTH/PA BOTH/LAT/MERC BILATERAL RADIOLOGIC EXAM KNEE COMPLETE 4/MORE VIEWS Sukhi Borjas MD [address] [place] [address] Xr Imaging [id number] Referral ID Status Reason Start Date Expiration Date V isits Requested Visits Authorized [id number] Closed Auto-Generate d Referral 12/01/2023 12/30/2024 1 1 [facility] for referral (narrative)* Outpatient Procedure (Routine) - Authorized Specialty Diagnoses / Procedures [facility] Diagnoses Chronic obstructive pulmonary disease, unspecified COPD type (HCC) Procedures SPIROMETRY WITH DILATOR IF OBSTRUCTED BRNCDILAT RSPSE SPMTRY PRE&POST-BRNCDILAT Camila Paul MD [address] [place] [address] Respiratory [place] [address] [place] [id number] Referral ID Status Reason Start Date Expiration Date Visits Requested Visits Authorized [id number] Authorized Auto-Generat ed Referral 02/24/2024 03/25/2025 1 1 [facility] for visit Narrative* Diagnostic Procedure Only (Routine) - Closed Specialty Diagnoses / Procedures Referred By Contac t Referred To Contact XR IMAGING Diagnoses Pain in both knees, unspecified chronicity Procedures XR KNEE GENERAL 4V AP BOTH/PA BOTH/LAT/MERC BILATERAL RADIOLOGIC EXAM KNEE COMPLETE 4/MORE VIEWS Sukhi Borjas MD [address] [place] [address] [place] [address] Referral ID Status Reason Start Date Expiration Date V isits Requested Visits Authorized [id number] Closed Auto-Generate d Referral 12/01/2023 12/30/2024 1 1 [facility] Summary Purpose Family History No Family History Records FoundNo Family History Records FoundNo Family History Records Found Advance Directives No Advanced Directives Records FoundDocuments on File Type Date Recorded 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 Advance Directive(s) 11/20/2021 8:13 AM [...] Order Discussed With: Patient Surrogate Decision Maker Date Activated Date Inactivated Comments 06/12/2022 1:49 AM 06/12/2022 9:19 PM Question Answer Comments Full Code Order Discussed With: PatientSurrogate Decision Maker Date Activated Date Inactivated Comments 06/12/2022 1:49 AM 06/12/2022 9:19 PM Question Answer Comments Full Code Order Discussed With: PatientSurrogate Decision Maker Health Concerns Infection Onset Date Last Indicated Resolved Time COVID-19 Rule-Out 06/11/2022 06/11/2022 06/11/2022 10:44 PM EDT Reason for Referral Specialty Diagnoses / Procedures Referred By Contac t Referred To Contact Dermatology Diagnoses Skin lesion Actinic keratosis Procedures CONSULT TO DERMATOLOGY Radha Shaikh MD [address] [place] [address] Referral ID Status Reason Start Date Expiration Date Visits Requested Visits Authorized [id number] Ref Not Required PCP Requested Referral 3 09/08/2024 1 1 Specialty Diagnoses / Procedures Referred By Contac t Referred To Contact Pain Management Diagnoses Chronic pain of both knees Primary osteoarthritis of both knees Procedures CONSULT TO PAIN MGT OFFICE/OUTPATIENT NEW HIGH MDM 60 MINUTES Sukhi Borjas MD [address] [place] [address] Referral ID Status Reason Start Date Expiration Date Visits Requested Visits Authorized [id number] Authorized PCP Requested Referral 12/01/2023 11/30/2024 1 1 Specialty Diagnoses / Procedures Referred By Contac t Referred To Contact CT IMAGING Diagnoses Former cigarette smoker Procedures CT LUNG SCREEN WO IVCON COMPUTED TOMOGRAPHY THORAX LW DOSE LNG CA Liz Murray, TELMA.INDEPENDENT FILM MAKER [address] [place] [id number] Imaging [id number] Referral ID Status Reason Start Date Expiration Date Visits Requested Visits Authorized [id number] Authorized Auto-Generat ed Referral 04/26/2024 05/26/2025 1 1 Additional Source Comments (unrecognized sect ion and content) No Status Records FoundNo Status Records FoundNo Status Records Found INFORMATION SOURCE (unrecogn ized section and content) DATE CREATED AUTHOR 04/10/2018 [facility] DATE CREATED AUTHOR AUTHOR'S ORGANIZ ATION 05/23/2024 [facility] DATE CREATED AUTHOR AUTHOR'S ORGANIZ ATION 08/13/2024 [facility] Source Comments (unrecognize d section and content) In the event this informatio n is protected by the Federal Confidentiality of Alcohol and Drug Abuse Patient Records regulations: The Federal rules restrict any use of the information to criminally investigate or prosecute any alcohol or drug abuse patient.[facility] the event this information is protected by the Federal Confidentiality of Alcohol and Drug Abuse Patient Records regulations: The Federal rules restrict any use of the information to criminally investigate or prosecute any alcohol or drug abuse patient.[facility] the event this information is protected by the Federal Confidentiality of Alcohol and Drug Abuse Patient Records regulations: The Federal rules restrict any use of the information to criminally investigate or prosecute any alcohol or drug abuse patient.[facility] Center[facility] the event this information is protected by the Federal Confidentiality of Alcohol and Drug Abuse Patient Records regulations: The Federal rules restrict any use of the information to criminally investigate or prosecute any alcohol or drug abuse patient.[facility] CenterIn the event this information is protected by the Federal Confidentiality of Alcohol and Drug Abuse Patient Records regulations: The Federal rules restrict any use of the information to criminally investigate or prosecute any alcohol or drug abuse patient.[facility] Center[facility] the event this information is protected by the Federal Confidentiality of Alcohol and Drug Abuse Patient Records regulations: The Federal rules restrict any use of the information to criminally investigate or prosecute any alcohol or drug abuse patient.[facility] Center[facility] the event this information is protected by the Federal Confidentiality of Alcohol and Drug Abuse Patient Records regulations: The Federal rules restrict any use of the information to criminally investigate or prosecute any alcohol or drug abuse patient.[facility] CenterIn the event this information is protected by the Federal Confidentiality of Alcohol and Drug Abuse Patient Records regulations: The Federal rules restrict any use of the information to criminally investigate or prosecute any alcohol or drug abuse patient.[facility] CenterIn the event this information is protected by the Federal Confidentiality of Alcohol and Drug Abuse Patient Records regulations: The Federal rules restrict any use of the information to criminally investigate or prosecute any alcohol or drug abuse patient.[facility] CenterIn the event this information is protected by the Federal Confidentiality of Alcohol and Drug Abuse Patient Records regulations: The Federal rules restrict any use of the information to criminally investigate or prosecute any alcohol or drug abuse patient.[facility] CenterIn the event this information is protected by the Federal Confidentiality of Alcohol and Drug Abuse Patient Records regulations: The Federal rules restrict any use of the information to criminally investigate or prosecute any alcohol or drug abuse patient.[facility] CenterIn the event this information is protected by the Federal Confidentiality of Alcohol and Drug Abuse Patient Records regulations: The Federal rules restrict any use of the information to criminally investigate or prosecute any alcohol or drug abuse patient.[facility] CenterIn the event this information is protected by the Federal Confidentiality of Alcohol and Drug Abuse Patient Records regulations: The Federal rules restrict any use of the information to criminally investigate or prosecute any alcohol or drug abuse patient.[facility] CenterIn the event this information is protected by the Federal Confidentiality of Alcohol and Drug Abuse Patient Records regulations: The Federal rules restrict any use of the information to criminally investigate or prosecute any alcohol or drug abuse patient.[facility] CenterIn the event this information is protected by the Federal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 Questions Reason Comments Forms Procedure Clearance Reason Comments Follow Up Knee Pain Reason Onset Date Comments Refill Request 02/23/2024 Reason Comments Established Patient Reason Comments 6 Month Exam Reason Comments Appointment Reason Comments Returning Patient's Call Reason Comments New Patient LCS Reason Comments Radiology CT Specialty Diagnoses / Procedures Referred By Contac t Referred To Contact CT IMAGING Diagnoses Former cigarette smoker Procedures CT LUNG SCREEN WO IVCON COMPUTED TOMOGRAPHY THORAX LW DOSE LNG CA SCR C- Liz Ye, BODYBUILDER.INDEPENDENT FILM MAKER [address] [place] [address] Ct Imaging [id number] Referral ID Status Reason Start Date Expiration Date V isits Requested Visits Authorized [id number] Closed Auto-Generate d Referral 04/26/2024 05/26/2025 1 1 Reason Comments Follow Up Right Knee RFA Reason Comments oxygen form Care Teams (unrecognized sec tion and content) Nitroglycerin Supervisor Relationship Specialty Start Date End Date Radha Shaikh MD [address] [place] [address] PCP - General 05/06/09 Nitroglycerin Supervisor Relationship Specialty Start Date End Date Radha Shaikh MD [address] [place] [address] PCP - General 05/06/09 Nitroglycerin Supervisor Relationship Specialty Start Date End Date Radha Shaikh MD [address] [place] [address] PCP - General 05/06/09 Nitroglycerin Supervisor Relationship Specialty Start Date End Date Radha Shaikh MD [address] [place] [address], [place] [address] PCP - General 05/06/09 Nitroglycerin Supervisor Relationship Specialty Start Date End Date Radha Shaikh MD [facility] [place] [address] PCP - General 05/06/09 Nitroglycerin Supervisor Relationship Specialty Start Date End Date Radha Shaikh MD [address] [place] [address] PCP - General 05/06/09 Nitroglycerin Supervisor Relationship Specialty Start Date End Date Radha Shaikh MD [address] [place] [address] PCP - General 05/06/09 Nitroglycerin Supervisor Relationship Specialty Start Date End Date Radha Shaikh MD [address] [place] [address] PCP - General 05/06/09 Nitroglycerin Supervisor Relationship Specialty Start Date End Date Radha Shaikh MD [address] [place] [address] PCP - General 05/06/09 Nitroglycerin Supervisor Relationship Specialty Start Date End Date Radha Shaikh MD [address] [place] [address] PCP - General 05/06/09 Joyce Sheppard RN Primary Care Red Mud Thickener Operator 06/12/22 07/12/22 Nitroglycerin Supervisor Relationship Specialty Start Date End Date Radha Shaikh MD [address] [place] [address] PCP - General 05/06/09 Joyce Sheppard RN Primary Care Red Mud Thickener Operator 06/12/22 07/12/22 Nitroglycerin Supervisor Relationship Specialty Start Date End Date Radha Shaikh MD [address] [place] [address] PCP - General 05/06/09 Joyce Sheppard RN Primary Care Red Mud Thickener Operator 06/12/22 07/12/22 Nitroglycerin Supervisor Relationship Specialty Start Date End Date Radha Shaikh MD [address] [place] [address] PCP - General 05/06/09 Joyce Sheppard RN Primary Care Red Mud Thickener Operator 06/12/22 07/12/22 Nitroglycerin Supervisor Relationship Specialty Start Date End Date Radha Shaikh MD [address] [place] [address] PCP - General 05/06/09 Joyce Sheppard RN Primary Care Red Mud Thickener Operator 06/12/22 07/12/22 Nitroglycerin Supervisor Relationship Specialty Start Date End Date Radha Shaikh MD [address] [facility] [place] [address] PCP - General 05/06/09 Joyce Sheppard RN Primary Care Red Mud Thickener Operator 06/12/22 07/12/22 Nitroglycerin Supervisor Relationship Specialty Start Date End Date Radha Shaikh MD [address] [place] [address] PCP - General 05/06/09 Sheppard, Joyce, acid tank liner Red Mud Thickener Operator 06/12/22 07/12/22 Nitroglycerin Supervisor Relationship Specialty Start Date End Date Radha Shaikh MD [address] [place] [address] PCP - General 05/06/09 Joyce Sheppard RN Primary Care Red Mud Thickener Operator 06/12/22 07/12/22 Nitroglycerin Supervisor Relationship Specialty Start Date End Date Radha Shaikh MD [address] [place] [address] PCP - General 05/06/09 Joyce Sheppard RN Primary Care Red Mud Thickener Operator 06/12/22 07/09/22 Nitroglycerin Supervisor Relationship Specialty Start Date End Date Radha Shaikh MD [address] [place] [address] PCP - General 05/06/09 Nitroglycerin Supervisor Relationship Specialty Start Date End Date Radha Shaikh MD [address] [place] [address] PCP - General 05/06/09 Nitroglycerin Supervisor Relationship Specialty Start Date End Date Radha Shaikh MD [address] [place] [address] PCP - General 05/06/09 Nitroglycerin Supervisor Relationship Specialty Start Date End Date Radha Shaikh MD [address] [place] [address] PCP - General 05/06/09 Nitroglycerin Supervisor Relationship Specialty Start Date End Date Radha Shaikh MD [address] [place] [address] PCP - General 05/06/09 Nitroglycerin Supervisor Relationship Specialty Start Date End Date Radha Shaikh MD [address] [place] [address] PCP - General 05/06/09 Nitroglycerin Supervisor Relationship Specialty Start Date End Date Radha Shaikh MD [address] [place] [address] PCP - General 05/06/09 Nitroglycerin Supervisor Relationship Specialty Start Date End Date Radha Shaikh MD [address] [place] [address] PCP - General 05/06/09 Nitroglycerin Supervisor Relationship Specialty Start Date End Date Radha Shaikh MD [address] [place] [address] PCP - General 05/06/09 Nitroglycerin Supervisor Relationship Specialty Start Date End Date Radha Shaikh MD [address] [place] [address] PCP - General 05/06/09 Nitroglycerin Supervisor Relationship Specialty Start Date End Date Radha Shaikh MD [address] [place] [address] PCP - General 05/06/09 Nitroglycerin Supervisor Relationship Specialty Start Date End Date Radha Shaikh MD [address] [place] [address] PCP - General 05/06/09 Nitroglycerin Supervisor Relationship Specialty Start Date End Date Radha Shaikh MD [address] [place] [address] PCP - General 05/06/09 Nitroglycerin Supervisor Relationship Specialty Start Date End Date Radha Shaikh MD [address] [place] [address] PCP - General 05/06/09 Nitroglycerin Supervisor Relationship Specialty Start Date End Date Radha Shaikh MD [address] [place] [address] PCP - General 05/06/09 Nitroglycerin Supervisor Relationship Specialty Start Date End Date Radha Shaikh MD [address] [place] [address] PCP - General 05/06/09 Nitroglycerin Supervisor Relationship Specialty Start Date End Date Radha Shaikh MD [address] [place] [address] PCP - General 05/06/09 Nitroglycerin Supervisor Relationship Specialty Start Date End Date Radha Shaikh MD [address] [place] [address] PCP - General 05/06/09 Nitroglycerin Supervisor Relationship Specialty Start Date End Date Radha Shaikh MD [address] [place] [address] PCP - General 05/06/09 Nitroglycerin Supervisor Relationship Specialty Start Date End Date Radha Shaikh MD [address] [place] [address] PCP - General 05/06/09 Nitroglycerin Supervisor Relationship Specialty Start Date End Date Radha Shaikh MD [address] [place] [address] PCP - General 05/06/09 Nitroglycerin Supervisor Relationship Specialty Start Date End Date Radha Shaikh MD [address] [place] [address] PCP - General 05/06/09 Nitroglycerin Supervisor Relationship Specialty Start Date End Date Radha Shaikh MD [address] [place] [address] PCP - General 05/06/09 Nitroglycerin Supervisor Relationship Specialty Start Date End Date Radha Shaikh MD [address] [place] [address] PCP - General 05/06/09 Nitroglycerin Supervisor Relationship Specialty Start Date End Date Radha Shaikh MD [address] [place] [id number] PCP - General 05/06/09 Nitroglycerin Supervisor Relationship Specialty Start Date End Date Radha Shaikh MD [address] [place] [address] PCP - General 05/06/09 Nitroglycerin Supervisor Relationship Specialty Start Date End Date Radha Shaikh MD [address] [place] [address] PCP - General 05/06/09 Nitroglycerin Supervisor Relationship Specialty Start Date End Date Radha Shaikh MD [address] [place] [address] PCP - General 05/06/09 Nitroglycerin Supervisor Relationship Specialty Start Date End Date Radha Shaikh MD [address] [place] [address] PCP - General 05/06/09 Nitroglycerin Supervisor Relationship Specialty Start Date End Date Radha Shaikh MD [address] [place] [address] PCP - General 05/06/09 FOR RECORDS PERTAINING [...] BE BASED ON THE PRIMARY CLINICAL RECORDS. [employer] [place] [facility]. provides no warranty or guarantee of the accuracy or completeness of information in this document.
[2024-08-18] MEDS: Azithromycin 250 MG Tablet 500 MG PO (22:15)
[2024-08-18] MEDS: Albuterol Sulfate 8 gm Inhaler (60 puffs) 2 PUFF INHALATION (22:21)
== END 2024-08-18 22:24 | disposition home or self-care (01) ==
PROVIDERS: Emergency Provider Emergency Medicine; PCP Family Medicine; Referring Provider Emergency Medicine; Visit Provider Emergency Medicine
DX: J44.9 Chronic obstructive pulmonary disease, unspecified (principal); Z99.81 Dependence on supplemental oxygen; Z87.891 Personal history of nicotine dependence; E78.5 Hyperlipidemia, unspecified; I10 Essential (primary) hypertension; I25.10 Atherosclerotic heart disease of native coronary artery without angina pectoris; Z79.52 Long term (current) use of systemic steroids; Z79.899 Other long term (current) drug therapy; R05.9 Cough, unspecified
CPT/HCPCS: 71045; 80048; 84484; 85025; 87631; 93005; 94640; 94760; 96374; 99283; A4216